=== PATIENT | female | born 1945 | race Caucasian/White ===

== ENCOUNTER → 2016-06-25 | Outpatient (CLI) | payer MEDICARE, OTHER ==
--- NOTE | 2016-06-25 13:04 | MM ---
Reason for exam: follow-up at short interval from prior study. Last mammogram was performed 6 months ago. History: Patient is postmenopausal. Physical Findings: Nurse did not find any significant physical abnormalities on exam. MG 3D Diag Mammo W/Cad RT CC and MLO view(s) were taken of the right breast. Prior study comparison: December 20, 2015, right breast MG 3d work up w/cad RT. November 30, 2015, bilateral MG 3d screening mammo w/cad. There are scattered fibroglandular densities. There is chronic nodularity in the right breast. There is no discrete abnormality. These results were verbally communicated with the patient and result sheet given to the patient on 06/25/16. ASSESSMENT: Benign, BI-RAD 2 RECOMMENDATION: Return to routine screening mammogram schedule for both breasts. Back on schedule for November 2016.
--- NOTE | 2016-06-25 13:06 | USB ---
Reason for exam: follow-up at short interval from prior study. History: Patient is postmenopausal. US Breast RT Right breast ultrasound includes all four quadrants, the retroareolar region and axilla. Finding demonstrates a 0.8 x 1.0 x 0.3cm hypoechoic lesion at 8 o'clock, probable tissue and a 0.8 x 0.6 x 0.4cm oval, vascular node at 9 o'clock, stable. These results were verbally communicated with the patient and result sheet given to the patient on 06/25/16. ASSESSMENT: Benign, BI-RAD 2 RECOMMENDATION: Return to routine screening mammogram schedule for both breasts. Back on schedule for November 2016.
== END | disposition home or self-care (01) ==
LOC: RADMAMWWP 11:00
PROVIDERS: ATTEND Family Medicine
DX: R92.8 Other abnormal and inconclusive findings on diagnostic imaging of breast (principal)
CPT/HCPCS: 76641; G0206; G0279

== ENCOUNTER → 2016-10-10 | Outpatient (CLI) | payer MEDICARE, OTHER ==
--- NOTE | 2016-10-10 15:42 | US ---
EXAMINATION TYPE: US abdomen complete DATE OF EXAM: 10/10/2016 COMPARISON: NONE CLINICAL HISTORY: D69.6 Thrombocytopenia R16.1 Splenomegaly. Thrombocytopenia, Splenomegaly, pt has h /o alberto 40 yrs ago EXAM MEASUREMENTS: Liver Length: 12.9 cm Gallbladder Wall: Surgically absent cm CBD: 0.7 cm Spleen: 10.3 cm Right Kidney: 10.5 x 5.7 x 5.3 cm Left Kidney: 10.5 x 5.5 x 4.4 cm Pancreas: wnl, Tail obscured by overlying bowel gas Liver: Slightly heterogeneous, otherwise appeared wnl Gallbladder: Surgically absent Evidence for sonographic Rosa's sign: No CBD: wnl Spleen: wnl Right Kidney: Cyst upper pole= 1.0 x 0.8 x 1.1 cm Left Kidney: wnl Upper IVC: wnl Abd Aorta: wnl IMPRESSION: 1. Right renal cyst. 2. Limitation on the examination due to bowel gas
== END | disposition home or self-care (01) ==
LOC: RADUSWWP 11:01
PROVIDERS: ATTEND Internal Medicine Hematology & Oncology
DX: N28.1 Cyst of kidney, acquired (principal)
CPT/HCPCS: 76700

== ENCOUNTER → 2017-05-08 | Outpatient (CLI) | payer MEDICARE, OTHER ==
[2017-05-08 15:32] LABS: Blood Urea Nitrogen 12 mg/dL (7-17)
--- NOTE | 2017-05-08 16:14 | CT ---
EXAMINATION TYPE: CT lumbar spine w con DATE OF EXAM: 05/08/2017 COMPARISON: NONE HISTORY: Low back pain radiating down left leg per patient. Lumbar neuritis per order. CT DLP: 742.9 mGycm Automated exposure control for dose reduction was used. CONTRAST: CT scan of the lumbar is performed with IV Contrast, patient injected with 100ml mL of Omnipaque 300. Enhanced CT of the lumbar spine was performed. Bone and soft tissue window settings are submitted as well as coronal and sagittal reconstructions. There are 5 lumbar type vertebra identified. There is levoconvex scoliotic curvature centered at L3-L 4 level. There is slight grade 1 anterolisthesis of L3 on L4. There is and moderate to advanced disc space narrowing with vacuum disc phenomenon and endplate sclerosis at L4-L5 level. There is advanced disc space narrowing with sclerosis and anterior spurring L5-S1 level. Focus of epidural gas L4-L5 le pal is seen likely from disc herniation effacing anterior thecal sac. Posterior spur disc complexes n oted L5-S1 level on sagittal images. Axial images show the T12-L1 and L1-L2 levels to appear within normal limits. Axial images at L2-L3 level show mild right-sided disc space narrowing with mild broad disc bulge but spinal canal is preserved and bilateral neural foramina are patent. Axial images at L3-L4 level show moderate facet degenerative changes bilaterally. There is mild right -sided disc space narrowing with mild to moderate broad disc bulge mildly effacing anterior thecal sa c on axial image 52. There is asymmetric mild right-sided anterior inferior neural foraminal narrowin g. Left-sided neural foramen is patent. Axial images at L4-L5 level show moderate facet degenerative changes bilaterally. There is broad disc bulge. There is effacement of the anterior posterior lateral thecal sac. There is moderate to severe bilateral neural foraminal narrowing at this level with probable encroachment on left L4 nerve sagit rafy image 39. Axial images at L5-S1 level show moderate to advanced facet degenerative changes bilaterally. Spinal canal is preserved. There is mild to moderate bilateral neural foraminal narrowing seen. There is moderate atherosclerotic change of aorta. Cholecystectomy clips are present. There are promi nent but subcentimeter mesenteric lymph nodes with mild haziness of the mesentery noted coronal image 7 and axial image 39 extending to the left of midline. IMPRESSION: Multilevel degenerative changes most prominent in the mid to lower lumbar spine as detailed above. Th ere is encroachment on left L4 nerve at L4-L5 level due to disc herniation confirmed on the CT may be accounting for patient's symptoms. 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 Follow-up advised.
== END | disposition home or self-care (01) ==
LOC: RADCTMAIN 14:48
PROVIDERS: ATTEND Family Medicine
DX: M48.061 Spinal stenosis, lumbar region without neurogenic claudication (principal); M99.73 Connective tissue and disc stenosis of intervertebral foramina of lumbar region; M51.26 Other intervertebral disc displacement, lumbar region; M47.817 Spondylosis without myelopathy or radiculopathy, lumbosacral region; G95.89 Other specified diseases of spinal cord
CPT/HCPCS: 82565; 84520; 72132; 36415; Q9967

== ENCOUNTER → 2017-05-29 | Outpatient (CLI) | payer MEDICARE, OTHER ==
[2017-05-29 15:35] LABS: Blood Urea Nitrogen 13 mg/dL (7-17)
--- NOTE | 2017-05-29 16:46 | CT ---
EXAMINATION TYPE: CT abdomen w con DATE OF EXAM: 05/29/2017 COMPARISON: Correlation lumbar spine 05/08/2017 HISTORY: 71-year-old female abnormal Lspine scan TECHNIQUE: Contiguous axial scanning of the abdomen following administration of 100 ml Omnipaque 300 IV contrast. Delayed images through the kidneys and coronal/sagittal reconstructions performed. CT DLP: 724.8 mGycm Automated exposure control for dose reduction was used. FINDINGS: Heart normal size without pericardial effusion. Lung bases clear without pleural effusion. Liver is borderline enlarged at 17.7 cm craniocaudal. Cholecystectomy clips are present. Portal venou s system is patent. No biliary ductal dilatation. Adrenal glands, left kidney, spleen, and pancreas appear within normal limits. Subcentimeter hypodens ity upper pole right kidney too small for accurate CT characterization, likely cyst. No dilated small bowel, free fluid, or free air. There is moderate stool throughout the colon without pericolonic inflammatory change. There is central mireya mesentery redemonstrated with mild to moderate mesenteric lymphadenopathy scott uring up to 1.4 cm and the left mid abdomen. No retroperitoneal lymphadenopathy. Mild to moderate prostatic calcifications within the abdominal aorta. Bones: Degenerative changes mid to lower lumbar spine. Trace grade 1 anterolisthesis of L3 in relatio n to L2 and L4 vertebral bodies. IMPRESSION: REDEMONSTRATED MIREYA MESENTERY AND ASSOCIATED MILD TO MODERATE MESENTERIC LYMPHADENOPATHY MEASURING U P TO 1.4 CM. CORRELATE FOR ANY SYMPTOMS OF MESENTERIC PANNICULITIS. IF SYMPTOMS ARE PRESENT, CONSIDER BEGINNING TREATMENT. EARLY LYMPHOMA CAN HAVE THIS APPEARANCE, RECOMMEND THREE-MONTH FOLLOW-UP TO ASSESS FOR STABILITY/RESOLUTION
== END | disposition home or self-care (01) ==
LOC: RADCTMAIN 14:50
PROVIDERS: ATTEND Family Medicine
DX: R59.1 Generalized enlarged lymph nodes (principal); R93.5 Abnormal findings on diagnostic imaging of other abdominal regions, including retroperitoneum
CPT/HCPCS: 82565; 84520; 74160; 36415; Q9967

== ENCOUNTER → 2017-08-02 | Outpatient (CLI) | payer MEDICARE, OTHER ==
[2017-08-02 13:45] LABS: Blood Urea Nitrogen 13 mg/dL (7-17)
--- NOTE | 2017-08-02 14:47 | CT ---
EXAMINATION TYPE: CT abdomen w con DATE OF EXAM: 08/02/2017 COMPARISON: 05/29/2017 HISTORY: Pain, prior abn CT CT DLP: 1374.68 mGycm CONTRAST: CT scan of the abdomen and pelvis is performed with Oral Contrast and with IV Contrast, patient injec fatuma with 100 mL of Isovue 300. FINDINGS: LUNG BASES-: No visible nodule. No infiltrate. LIVER/GB: Cholecystectomy clips are noted. No space occupying hepatic lesion. Biliary tree is of n ormal caliber. PANCREAS: No inflammation. No distinct mass. SPLEEN: No splenic enlargement. No lesion seen. ADRENALS: No nodule. No thickening. KIDNEYS/BLADDER: No hydronephrosis. No nephrolithiasis. No distinct renal mass. Urinary bladder g rossly unremarkable. BOWEL: Normal appendix. Normal bowel caliber. No inflammation. GENITAL ORGANS: No gross abnormality. LYMPH NODES: No greater than 1cm abdominal or pelvic lymph nodes are appreciated. AORTA: No significant abnormality. OSSEOUS STRUCTURES: No significant abnormality is seen. OTHER: Stable increased attenuation within the small bowel mesentery with the mildly prominent lymph nodes again seen. Findings may reflect a lymphoma or mesenteric paniculitis. Lymph nodes measure up t o 1.2 cm. IMPRESSION: 1. Stable increased attenuation within the small bowel mesentery with the mildly prominent lymph node s again seen. Findings may reflect a lymphoma or mesenteric paniculitis.
--- NOTE | 2017-08-02 14:57 | CT ---
EXAMINATION TYPE: CT shoulder LT w con DATE OF EXAM: 08/02/2017 COMPARISON: NONE HISTORY: Pain CT DLP: 398.[address] of the left shoulder with reconstruction imaging. TECHNIQUE: Unenhanced CT of the left shoulder was performed with bone and soft tissue window settings submitted in the axial coronal and sagittal planes. At a separate workstation 3-D TR imaging was ob tained. FINDINGS: I do not see evidence for fracture or dislocation. No evidence for subacromial impingement as there is a flat acromium. AC joint arthropathy with mild spurring and a vacuum changes seen. Mi ld spur formation involving the greater humeral tuberosity. Glenohumeral joint space is well-preserv ed. No obvious rotator cuff abnormality seen on CT. MRI is much more sensitive and specific to rota tor cuff pathology. No soft tissue masses appreciated. Visualized portions of the left lung demonst rate right apical scarring. IMPRESSION:1. Degenerative changes as noted.
== END | disposition home or self-care (01) ==
LOC: RADCTMAIN 13:12
PROVIDERS: ATTEND Family Medicine
DX: R10.9 Unspecified abdominal pain (principal); R10.0 Acute abdomen; S46.012D Strain of muscle(s) and tendon(s) of the rotator cuff of left shoulder, subsequent encounter
CPT/HCPCS: 82565; 84520; 74160; 36415; 73201; Q9967

== ENCOUNTER → 2018-05-14 | Outpatient (CLI) | payer MEDICARE, OTHER ==
--- NOTE | 2018-05-15 11:01 | MM ---
Reason for exam: screening (asymptomatic). Last mammogram was performed 1 year and 11 months ago. History: Patient is postmenopausal. Physical Findings: A clinical breast exam by your physician is recommended on an annual basis and results should be correlated with mammographic findings. MG 3D Screening Mammo W/Cad Bilateral CC and MLO view(s) were taken. Prior study comparison: June 25, 2016, right breast MG 3d diag mammo w/cad RT. December 20, 2015, right breast MG 3d work up w/cad RT. There are scattered fibroglandular densities. No significant changes when compared with prior studies. ASSESSMENT: Benign, BI-RAD 2 RECOMMENDATION: Routine screening mammogram of both breasts in 1 year.
== END | disposition home or self-care (01) ==
LOC: RADMAMWWP 15:27
PROVIDERS: ATTEND Family Medicine
DX: Z12.31 Encounter for screening mammogram for malignant neoplasm of breast (principal)
CPT/HCPCS: 77063; 77067

== ENCOUNTER → 2018-12-25 | Outpatient (CLI) | payer MEDICARE, OTHER ==
[2018-12-25 17:41] LABS: African American GFR (CKD) 104.1 (60.0-200.0)
== END | disposition home or self-care (01) ==
LOC: LABWHC1 09:49
PROVIDERS: ATTEND Family Medicine
DX: R10.12 Left upper quadrant pain (principal)
CPT/HCPCS: 36415; 82565; 84520

== ENCOUNTER → 2018-12-27 | Outpatient (CLI) | payer MEDICARE, OTHER ==
--- NOTE | 2018-12-27 13:03 | CT ---
EXAMINATION TYPE: CT abdomen pelvis w con DATE OF EXAM: 12/27/2018 COMPARISON: 08/02/2017 HISTORY: Left upper quadrant pain x [address] DLP: 909.9 mGycm CONTRAST: CT scan of the abdomen and pelvis is performed with Oral Contrast and with IV Contrast, patient injec fatuma with 100 mL of Isovue M300. FINDINGS: LUNG BASES-: No visible nodule. No infiltrate. LIVER/GB: The gallbladder is surgically absent. No space occupying hepatic lesion. Biliary tree is of normal caliber. PANCREAS: No inflammation. No distinct mass. SPLEEN: No splenic enlargement. No lesion seen. ADRENALS: No nodule. No thickening. KIDNEYS/BLADDER: No hydronephrosis. No nephrolithiasis. No distinct renal mass. Urinary bladder g rossly unremarkable. BOWEL: Normal appendix. Normal bowel caliber. No inflammation. GENITAL ORGANS: No gross abnormality. LYMPH NODES: No greater than 1cm abdominal or pelvic lymph nodes are appreciated. AORTA: No significant abnormality. OSSEOUS STRUCTURES: No significant abnormality is seen. OTHER: Stable increased attenuation within the small bowel mesentery with the mildly prominent lymph nodes again seen. Findings may reflect lymphoma or mesenteric panniculitis. IMPRESSION: 1. Stable increased attenuation within the small bowel mesentery with the mildly prominent lymph node s again seen. Findings may reflect lymphoma or mesenteric panniculitis.
== END | disposition home or self-care (01) ==
LOC: RADCTMAIN 10:59
PROVIDERS: ATTEND Family Medicine
DX: K66.8 Other specified disorders of peritoneum (principal); R59.0 Localized enlarged lymph nodes
CPT/HCPCS: 74177; Q9967 ×2

== ENCOUNTER → 2020-12-20 | Outpatient (CLI) | payer MEDICARE, OTHER ==
--- NOTE | 2020-12-22 14:02 | MM ---
Reason for exam: screening (asymptomatic). Last mammogram was performed 2 years and 7 months ago. History: Patient is postmenopausal. Took hormonal contraceptives for 5 years. Physical Findings: A clinical breast exam by your physician is recommended on an annual basis and results should be correlated with mammographic findings. MG 3D Screening Mammo W/Cad Bilateral CC and MLO view(s) were taken. Prior study comparison: May 14, 2018, bilateral MG 3d screening mammo w/cad. June 25, 2016, right breast MG 3d diag mammo w/cad RT. The breast tissue is heterogeneously dense. This may lower the sensitivity of mammography. Finding: There are typically benign coarse calcifications in the upper outer quadrant, middle position of the right breast. No significant changes in finding since May 14, 2018 and June 25, 2016. ASSESSMENT: Benign, BI-RAD 2 RECOMMENDATION: Routine screening mammogram of both breasts in 1 year.
== END | disposition home or self-care (01) ==
LOC: RADMAMWWP 13:39
PROVIDERS: ATTEND Family Medicine
DX: Z12.31 Encounter for screening mammogram for malignant neoplasm of breast (principal); Z78.0 Asymptomatic menopausal state
CPT/HCPCS: 77063; 77067

== ENCOUNTER → 2021-12-27 | Outpatient (CLI) | payer MEDICARE, OTHER ==
--- NOTE | 2021-12-28 09:01 | MM ---
Reason for Exam: Screening (asymptomatic). Last screening mammogram was performed 12 month(s) ago. Patient History: Menarche at age 12. First Full-Term at age 22. Postmenopausal. Patient used Hormonal Contraceptives for 5 years. Risk Values: Candi 5 year model risk: 1.6%. NCI Lifetime model risk: 3.0%. Prior Study Comparison: 06/25/2016 Right Diagnostic Mammogram, [facility]. 05/14/2018 Bilateral Screening Mammogram, [facility]. 12/20/2020 Bilateral Screening Mammogram, [facility]. Tissue Density: The breast tissue is heterogeneously dense. This may lower the sensitivity of mammography. Findings: Analyzed By CAD. There is no suspicious group of microcalcifications or new suspicious mass in either breast. Overall Assessment: Negative, BI-RAD 1 Management: Screening Mammogram of both breasts in 1 year. A clinical breast exam by your physician is recommended on an annual basis and results should be correlated with mammographic findings. [facility] will attempt to contact patient to return for supplemental views and ultrasound if indicated. Electronically signed and approved by: Alex Strange DO
== END | disposition home or self-care (01) ==
LOC: RADMAMWWP 15:49
PROVIDERS: ATTEND Family Medicine
DX: Z12.31 Encounter for screening mammogram for malignant neoplasm of breast (principal); Z78.0 Asymptomatic menopausal state
CPT/HCPCS: 77063; 77067

== ENCOUNTER 2022-02-03 19:44 | Observation (INO) | payer MEDICARE, OTHER ==
[2022-02-03] MEDS ORDERED: SODIUM CHLORIDE 0.9% 1,000 ML IV STA (20:03)
[2022-02-03 20:04] LABS: Glucose,Whole Blood 200 mg/dL (70-110)
[2022-02-03] MEDS ORDERED: ACETAMINOPHEN TAB 500 MG TAB PO STA (20:13)
[2022-02-03 20:16] LABS: HCT 42.7 % (34.0-46.0); HGB 14.4 gm/dL (11.4-16.0); MCH 27.9 pg (25.0-35.0); MCHC 33.8 g/dL (31.0-37.0); MCV 82.6 fL (80.0-100.0); Mean Platelet Volume 12.6; Platelet Count 105 k/uL (150-450); RBC 5.17 m/uL (3.80-5.40); WBC 8.4 k/uL (3.8-10.6)
[2022-02-03] MEDS ORDERED: ONDANSETRON 4 MG/2 ML VIAL IVP STA (20:25)
--- NOTE | 2022-02-03 20:37 | XR ---
EXAMINATION TYPE: XR chest 2V DATE OF EXAM: 02/03/2022 COMPARISON: 12/03/2018 HISTORY: Weakness TECHNIQUE: 2 views FINDINGS: There is some blunting of the costophrenic angles and more on the left side. Heart size is normal. There are no hilar masses. The bony thorax is intact. No heart failure seen. IMPRESSION: Small bilateral pleural effusions. Normal heart. Pleural fluid appears new compared to e old exam.
[2022-02-03 20:38] LABS: INR 1.2 (<1.2); Partial Thromboplastin Time 25.7 sec (22.0-30.0); Prothrombin Time 12.4 sec (9.0-12.0)
--- NOTE | 2022-02-03 20:46 | ED ---
General Adult HPI - General Chief complaint: Weakness Stated complaint: Weakness Time Seen by Provider: 02/03/22 19:47 Source: patient, EMS, RN notes reviewed, old records reviewed Mode of arrival: EMS Limitations: no limitations - History of Present Illness Initial comments: 76-year-old female presenting with weakness. Patient received both influenza and coronavirus vaccines today. She had gone to bed and woke up with chills and generalized weakness, difficulty standing. Denies focal weakness. Denies any pain complaints. She has had nausea and vomiting as well. - Related Data Home Medications Medication Instructions Recorded Confirmed Ciclopirox Olamine [Ciclopirox 1 applic TOPICAL HS 07/02/18 07/02/18 0.77% Topical Susp.] Levothyroxine Sodium [Synthroid] 100 mcg PO DAILY 07/02/18 07/02/18 Previous Rx's Medication Instructions Recorded Doxycycline Hyclate 100 mg PO Q12H #14 tab 07/04/18 Allergies Allergy/AdvReac Type Severity Reaction Status Date / Time No Known Allergies Allergy Verified 07/01/18 22:51 Review of Systems ROS Statement: Those systems with pertinent positive or pertinent negative responses have been documented in the HPI. ROS Other: All systems not noted in ROS Statement are negative. Past Medical History Past Medical History: Diabetes Mellitus, Hyperlipidemia History of Any Multi-Drug Resistant Organisms: None Reported Past Surgical History: No Surgical Hx Reported Additional Past Surgical History / Comment(s): cholecystectomy, cataract surgery Past Anesthesia/Blood Transfusion Reactions: No Reported Reaction Past Psychological History: No Psychological Hx Reported Past Alcohol Use History: Occasional Past Drug Use History: None Reported General Exam Limitations: no limitations General appearance: alert, in no apparent distress Head exam: Present: atraumatic, normocephalic Eye exam: Present: normal appearance, PERRL ENT exam: Present: mucous membranes dry Neck exam: Present: normal inspection. Absent: tenderness, meningismus Respiratory exam: Present: normal lung sounds bilaterally. Absent: respiratory distress, wheezes Cardiovascular Exam: Present: normal rhythm, tachycardia GI/Abdominal exam: Present: soft. Absent: distended, tenderness, guarding Extremities exam: Present: normal inspection, normal capillary refill. Absent: pedal edema Neurological exam: Present: alert, oriented X3, CN II-XII intact. Absent: motor sensory deficit Psychiatric exam: Present: normal affect, normal mood Skin exam: Present: warm, dry, intact. Absent: cyanosis, diaphoretic Course Vital Signs 02/03/22 02/03/22 02/03/22 19:47 19:51 21:38 Temperature 98.6 F Pulse Rate 112 H 107 H Pulse Rate [ 114 H [employer] ] Respiratory 22 Rate Blood Pressure 134/54 O2 Sat by Pulse 100 Oximetry EKG Findings - EKG Comments: EKG Findings:: EKG: Sinus tachycardia rate of 109, poor baseline limiting the assessment I do not see any ST segment elevation, LA interval 135, QRS duration 82, QTC 345 Medical Decision Making - Medical Decision Making 76-year-old female with weakness, nausea vomiting, after getting her flu and coronavirus vaccines today. She has no pain or tenderness. She is mildly tachycardic with otherwise stable vitals. She does report weakness but there is no focal weakness or specific lower extremity weakness. This is diffuse. She has a normal CBC. She has some mild left foot abnormalities including hypokalemia and hypomagnesemia. She's given IV fluids and left leg replacement. She does have a urinalysis ordered but results are pending. She will be admitted for IV hydration and symptom control. - Lab Data Result diagrams: 02/03/22 20:01 02/03/22 20:38 Lab Results 02/03/22 02/03/22 02/03/22 Range/Units 20:01 20:01 20:01 WBC 8.4 (3.8-10.6) k/uL RBC 5.17 (3.80-5.40) m/uL Hgb 14.4 (11.4-16.0) gm/dL Hct 42.7 (34.0-46.0) % MCV 82.6 (80.0-100.0) fL MCH 27.9 (25.0-35.0) pg MCHC 33.8 (31.0-37.0) g/dL RDW 14.0 (11.5-15.5) % Plt Count 105 L (150-450) k/uL MPV 12.6 PT 12.4 H (9.0-12.0) sec INR 1.2 H (<1.2) APTT 25.7 (22.0-30.0) sec Sodium (137-145) mmol/L Potassium (3.5-5.1) mmol/L Chloride (98-107) mmol/L Carbon Dioxide (22-30) mmol/L Anion Gap mmol/L BUN (7-17) mg/dL Creatinine (0.52-1.04) mg/dL Est GFR (CKD-EPI)AfAm (>60 ml/min/1.73 sqM) Est GFR (CKD-EPI)NonAf (>60 ml/min/1.73 sqM) Glucose (74-99) mg/dL POC Glucose (mg/dL) (70-110) mg/dL POC Glu Laboratory Administrative Director ID Plasma Lactic Acid Yoni 1.6 (0.7-2.0) mmol/L Calcium (8.4-10.2) mg/dL Magnesium (1.6-2.3) mg/dL Total Bilirubin (0.2-1.3) mg/dL AST (14-36) U/L ALT (4-34) U/L Alkaline Phosphatase (38-126) U/L Total Protein (6.3-8.2) g/dL Albumin (3.5-5.0) g/dL 02/03/22 02/03/22 Range/Units 20:03 20:38 WBC (3.8-10.6) k/uL RBC (3.80-5.40) m/uL Hgb (11.4-16.0) gm/dL Hct (34.0-46.0) % MCV (80.0-100.0) fL MCH (25.0-35.0) pg MCHC (31.0-37.0) g/dL RDW (11.5-15.5) % Plt Count (150-450) k/uL MPV PT (9.0-12.0) sec INR (<1.2) APTT (22.0-30.0) sec Sodium 135 L (137-145) mmol/L Potassium 3.2 L (3.5-5.1) mmol/L Chloride 99 (98-107) mmol/L Carbon Dioxide 22 (22-30) mmol/L Anion Gap 14 mmol/L BUN 8 (7-17) mg/dL Creatinine 0.38 L (0.52-1.04) mg/dL Est GFR (CKD-EPI)AfAm >90 (>60 ml/min/1.73 sqM) Est GFR (CKD-EPI)NonAf >90 (>60 ml/min/1.73 sqM) Glucose 236 H (74-99) mg/dL POC Glucose (mg/dL) 200 H (70-110) mg/dL POC Glu Laboratory Administrative Director ID Rasheeda Miguel Plasma Lactic Acid Yoni (0.7-2.0) mmol/L Calcium 8.2 L (8.4-10.2) mg/dL Magnesium 1.5 L (1.6-2.3) mg/dL Total Bilirubin 1.0 (0.2-1.3) mg/dL AST 36 (14-36) U/L ALT 19 (4-34) U/L Alkaline Phosphatase 85 (38-126) U/L Total Protein 5.9 L (6.3-8.2) g/dL Albumin 3.7 (3.5-5.0) g/dL Disposition Clinical Impression: Generalized weakness, Dehydration, Hypokalemia Disposition: ADMITTED IP TO THIS HOSP Condition: Stable Is patient prescribed a controlled substance at d/c from ED?: No Referrals: Steve Barron MD [Primary Care Provider] - 1-2 days Time of Disposition: 21:53
[2022-02-03 21:06] LABS: ALT 19 U/L (4-34); AST 36 U/L (14-36); African American GFR (CKD) >90 (>60 ml/min/1.73 sqM); Albumin 3.7 g/dL (3.5-5.0); Alkaline Phosphatase 85 U/L (38-126); Anion Gap 14 mmol/L; Blood Urea Nitrogen 8 mg/dL (7-17); Calcium 8.2 mg/dL (8.4-10.2); Carbon Dioxide 22 mmol/L (22-30); Chloride 99 mmol/L (98-107); Glucose 236 mg/dL (74-99); Magnesium 1.5 mg/dL (1.6-2.3); Non-African American GFR(CKD) >90 (>60 ml/min/1.73 sqM); Potassium 3.2 mmol/L (3.5-5.1); Sodium 135 mmol/L (137-145); Total Protein 5.9 g/dL (6.3-8.2)
[2022-02-03] MEDS ORDERED: POTASSIUM CHLORIDE ER 20 MEQ TAB.ER PO STA (21:08)
[2022-02-03] MEDS: MAGNESIUM SULFATE-D5W PMX 1 GM in DEXTROSE/WATER 1 100ML.BAG IVPB SCH ×2 (21:31→23:31)
[2022-02-03] MEDS ORDERED: NALOXONE 0.4 MG/ML 1 ML VIAL IV PRN (21:51)
[2022-02-03] MEDS ORDERED: ONDANSETRON 4 MG/2 ML VIAL IVP PRN (21:51)
[2022-02-03] MEDS ORDERED: ACETAMINOPHEN TAB 325 MG TAB PO PRN (21:51)
[2022-02-03 22:37] LABS: Band Neutrophils % 3 %; Lymphocytes # (M) 1.26 k/uL (1.0-4.8); Monocytes # (M) 1.76 k/uL (0-1.0); Neutrophils % (M) 61 %; Nucleated Red Blood Cells 0 /100 WBC (0-0); Total Cells Counted 100
[2022-02-03 22:39] LABS: Anisocytosis (M) Present; Large Platelets Present
[2022-02-03 22:45] LABS: Poikilocytosis (M) Present
[2022-02-03 23:03] LABS: Glucose,Whole Blood 223 mg/dL (70-110)
[2022-02-03 23:20] LABS: Appearance,Urine Cloudy (Clear); Bacteria,Urine Rare /hpf; Bilirubin,Urine Negative (Negative); Blood,Urine Negative (Negative); Color,Urine Yellow; Glucose,Urine (UA) Trace (Negative); Hyaline Casts,Urine 1 /lpf (0-2); Ketones,Urine 2+ (Negative); Leukocyte Esterase,Urine Trace (Negative); Mucus,Urine Rare /hpf; Nitrite,Urine Negative (Negative); Protein,Urine 1+ (Negative); RBC,Urine 2 /hpf (0-5); Specific Gravity,Urine 1.015 (1.001-1.035); Squamous Epithelial Cell,Urine 2 /hpf (0-4); Urobilinogen,Urine <2.0 mg/dL (<2.0); WBC,Urine 1 /hpf (0-5)
[2022-02-03] MEDS: SODIUM CHLORIDE 0.9% 1,000 ML IV SCH (23:31)
[2022-02-04 08:42] LABS: Glucose,Whole Blood 205 mg/dL (70-110)
[2022-02-04 11:49] LABS: Basophils # (M) 0 X 10*3/uL (0.00-0.10); Eosinophils # (M) 0 X 10*3/uL (0.04-0.35); HCT 35.9 % (37.2-46.3); HGB 12.1 g/dL (12.0-15.0); Lymphocytes # (M) 0.95 X 10*3/uL (0.90-5.00); MCH 27.5 pg (27.0-32.0); MCHC 33.7 g/dL (32.0-37.0); MCV 81.6 fL (80.0-97.0); Monocytes # (M) 1.35 X 10*3/uL (0.20-1.00); NRBC Per 100 WBC 0 /100 WBCS (0.0-0.0); Neutrophils # (M) 4.47 X 10*3/uL (2.00-8.90); Neutrophils % (M) 66 %; Platelet Count 94 X 10*3/uL (140-440); RDW 15.2 % (11.5-14.5); WBC 6.77 X 10*3/uL (4.50-10.00)
[2022-02-04 12:27] LABS: African American GFR (CKD) 107.9 (60.0-200.0); Anion Gap 9.2 mmol/L (10.00-18.00); BUN/Creat Ratio 11.41 Ratio (12.00-20.00); Blood Urea Nitrogen 5.8 mg/dL (9.0-27.0); Calcium 7.7 mg/dL (8.7-10.3); Carbon Dioxide 25.2 mmol/L (20.0-27.5); Magnesium 1.9 mg/dL (1.5-2.4); Non-African American GFR(CKD) 93.1 (60.0-200.0); Potassium 3.4 mmol/L (3.5-5.5)
[2022-02-04] MEDS: SODIUM CHLORIDE 0.9% 1,000 ML IV SCH (13:19)
--- NOTE | 2022-02-04 14:17 | CT ---
EXAMINATION TYPE: CT chest wo con DATE OF EXAM: 02/04/2022 COMPARISON: CT abdomen 12/27/2018 HISTORY: pleural effusion CT DLP: 196.3 mGycm Automated exposure control for dose reduction was used. Images obtained from the thoracic inlet to the diaphragm without contrast. There is bilateral pleural effusions. Heart size is normal. There is small pericardial effusion. There is no mediastinal adenopathy. There are no hilar masses. Thoracic aorta is atheromatous. There is a slight thoracic dextroscoliosis. Normal thoracic compression fracture. Sternum is intact. There is abdominal ascites. There are clips from cholecystectomy. IMPRESSION: Bilateral pleural effusions and pericardial effusion appears new compared to CT scan of 12/27/2018. Ab dominal ascites is new compared to old exam.
[2022-02-04 17:17] LABS: Glucose,Whole Blood 224 mg/dL (70-110)
[2022-02-04] MEDS ORDERED: DEXTROSE 50% SYRINGE 50 ML IVP PRN ×2 (17:30)
[2022-02-04] MEDS: INSULIN ASPART (NovoLOG) 100 UNIT/ML VIAL SQ SCH ×2 (17:54→21:44)
--- NOTE | 2022-02-04 18:57 | US ---
EXAMINATION TYPE: US abdomen limited DATE OF EXAM: 02/04/2022 COMPARISON: NONE CLINICAL HISTORY: abdominal ascites. ascites visualized on recent chest CT all 4 abdominal quadrants scanned, no significant fluid visualized IMPRESSION: No evidence of abdominal ascites.
[2022-02-04] MEDS ORDERED: KETOCONAZOLE 2% SHAMPOO 1 APPLIC/ML TOPICAL SCH (21:00)
[2022-02-04] MEDS: metFORMIN 500 MG TAB PO SCH (21:25)
[2022-02-04 21:30] LABS: Glucose,Whole Blood 195 mg/dL (70-110)
[2022-02-05] MEDS: SODIUM CHLORIDE 0.9% 1,000 ML IV SCH ×2 (02:40→16:24)
--- NOTE | 2022-02-05 04:45 | HP ---
HISTORY AND PHYSICAL HISTORY OF PRESENT ILLNESS: A 76-year-old white female came to hospital with Dr. Mccain. She became weak, dizzy standing. She was admitted, given fluids overnight. She is much better today. No nausea or vomiting. Ultrasound and CAT scans were reviewed. HOME MEDICATIONS: 1. Synthroid 100 mcg daily. 2. Ciprodex. PAST MEDICAL HISTORY: Diabetes mellitus, dyslipidemia, cholecystectomy, cataract surgery. REVIEW OF SYSTEMS: A 14-point review of systems otherwise negative except for H and P. EKG, sinus tachycardia. PHYSICAL EXAMINATION: PSYCH: Alert and oriented x3, fair mood and affect. NEUROLOGIC: Cranial nerves intact. CARDIOVASCULAR: S1, S2. LUNGS: Clear. GI: Soft. HEMATOLOGY: Negative for Homans. ASSESSMENT: 1. Weakness, nausea, and vomiting. 2. Dehydration, normal CBC. 3. Mild left foot abnormalities. 4. Hypokalemia, hypomagnesemia, replaced. Urinalysis negative. IV hydration. Possibly go home and followup with diabetes outpatient. At this point, she wants to go home. Wait for ultrasound, come back, then discharged home tonight. MMODL / IJN: [id number] /
[2022-02-05 06:29] LABS: Glucose,Whole Blood 151 mg/dL (70-110)
[2022-02-05] MEDS ORDERED: LEVOTHYROXINE 100 MCG TAB PO SCH (06:30)
[2022-02-05] MEDS: INSULIN ASPART (NovoLOG) 100 UNIT/ML VIAL SQ SCH ×3 (06:35→17:26)
[2022-02-05] MEDS: metFORMIN 500 MG TAB PO SCH ×2 (06:35→17:28)
[2022-02-05 07:41] LABS: Glucose,Whole Blood 165 mg/dL (70-110)
[2022-02-05 08:32] VITALS: RESP 18
--- NOTE | 2022-02-05 09:43 | P.CRDCN ---
History of Present Illness History of present illness: This is a 76 year old female with a past medical history of type 2 diabetes and thrombocytopenia. 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 We have been asked to see in consultation for pericardial effusion. Patient had her covid-19 booster vaccine and her influenza vaccine saturday. She had symptoms of generalized weakness that began a few hours after, she states she felt weak and felt as if she could not walk or do anything. She came to the ER for further evaluation. She denies any other symptoms. She denies any chest pain, shortness of breath, lightheadeness, dizziness, syncope, pre-syncope or palpitations. Denies any fever, cough or chills. She denies any history of CAD, [place], Stroke, heart failure, or arrhythmia. She state she feels back to her her baseline, no complaints. DIAGNOSTICS * EKG reveals sinus tachycardia, heart rate 109, artifact noted. Nonspecific STT wave abnormalities. * Telemetry tracings: on telemetry to review. * Chest xray small bilateral pleural effusions reported. * CT of the chest reported small pericardial effusion, bilateral pleural effusions. Reported abdominal ascites, abdominal ultrasound reported no ascites. * Laboratory reviewed, WBC 6.7, hemoglobin 12.1, platelets 94, sodium 141, potassium 3.4, BUN 5.8, serum current 0.5, d-dimer 1.3, magnesium 1.9, proBNP 681 * Current home cardiac medications include metformin REVIEW OF SYSTEMS At the time of my exam: CONSTITUTIONAL: Denies fever or chills. CARDIOVASCULAR: Denies chest pain, shortness of breath, orthopnea, PND or palpitations. RESPIRATORY: Denies cough. GASTROINTESTINAL: Denies abdominal pain, diarrhea, constipation, nausea or vomiting. MUSCULOSKELETAL: Denies myalgias. NEUROLOGIC: Denies numbness, tingling, headacbe or weakness. ENDOCRINE: Denies fatigue, weight change, polydipsia or polyurina. GENITOURINARY: Denies burning, hematuria or urgency with micturation. HEMATOLOGIC: Denies history of anemia or bleeding. PHYSICAL EXAMINATION Blood pressure 119/68, heart 79, afebrile, saturation 96% on room air CONSTITUTIONAL: No apparent distress. HEENT: Head is normocephalic. Pupils are equal, round. Sclerae anicteric. Mucous membranes of the mouth are moist. No JVD. No carotid bruit. CHEST EXAMINATION: Lungs are clear to auscultation. No chest wall tenderness is noted on palpation or with deep breathing. HEART EXAMINATION: Regular rate and rhythm. S1, S2 heard. No murmurs, gallops or rub. ABDOMEN: Soft, nontender. Positive bowel sounds. EXTREMITIES: 2+ peripheral pulses, no lower extremity edema and no calf tenderness. NEUROLOGIC EXAMINATION: Patient is awake, alert and oriented x3. ASSESSMENT Generalized weakness after covid-19 booster vaccine and influenza vaccine, resolved Hypokalemia Hypomagnesemia Thrombocytopenia Small pericardial effusion reported on CT chest PLAN Obtain 2D echocardiogram and doppler study to assess cardiac structure/function and pericardial effusion. If no acute findings noted on echocardiogram, no further inpatient workup from a cardiology perspective. Nurse practitioner note has been reviewed by physician. Signing provider agrees with the documented findings, assessment, and plan of care. Past Medical History Past Medical History: Diabetes Mellitus, Hyperlipidemia Additional Past Medical History / Comment(s): left leg swells at end of day every day for about a year History of Any Multi-Drug Resistant Organisms: None Reported Past Surgical History: No Surgical Hx Reported Additional Past Surgical History / Comment(s): cholecystectomy, cataract surgery Past Anesthesia/Blood Transfusion Reactions: No Reported Reaction Past Psychological History: No Psychological Hx Reported Smoking Status: Former smoker Past Alcohol Use History: Occasional Past Drug Use History: None Reported - Past Family History Father Family Medical History: Cancer, Prostate Disorder Additional Family Medical History / Comment(s): prostate CA Mother Additional Family Medical History / Comment(s): parkinsons Medications and Allergies Home Medications Medication Instructions Recorded Confirmed Type Ciclopirox Olamine [Ciclopirox 1 applic TOPICAL HS 07/02/18 07/02/18 History 0.77% Topical Susp.] Levothyroxine Sodium [Synthroid] 100 mcg PO DAILY 07/02/18 07/02/18 History metFORMIN HCL [Glucophage] 500 mg PO BID-W/MEALS 30 Days #60 02/04/22 Rx tab Allergies Allergy/AdvReac Type Severity Reaction Status Date / Time No Known Allergies Allergy Verified 07/01/18 22:51 Physical Exam Vitals: Vital Signs Temp Pulse Resp BP BP Pulse Ox 02/05/22 03:00 98.0 F 79 16 126/68 96 02/04/22 20:55 98.2 F 85 16 117/68 94 L 02/04/22 14:24 98 F 80 18 102/63 98 02/04/22 14:00 80 16 02/04/22 08:00 80 16 Intake and Output 02/04/22 02/05/22 02/05/22 22:59 06:59 14:59 Intake Total 120 Balance 120 Intake: Oral 120 Other: Voiding Method Toilet # Voids 2 3 Results 02/04/22 07:46 02/04/22 07:46 CBC 02/04/22 Range/Units 07:46 WBC 6.77 (4.50-10.00) X 10*3/uL RBC 4.40 (4.10-5.20) X 10*6/uL Hgb 12.1 (12.0-15.0) g/dL Hct 35.9 L (37.2-46.3) % Plt Count 94 L (140-440) X 10*3/uL Comprehensive Metabolic Panel 02/04/22 Range/Units 07:46 Sodium 141 (135-145) mmol/L Potassium 3.4 L (3.5-5.5) mmol/L Chloride 107 (96-109) mmol/L Carbon Dioxide 25.2 (20.0-27.5) mmol/L BUN 5.8 L (9.0-27.0) mg/dL Creatinine 0.5 L (0.6-1.5) mg/dL Glucose 210 H (70-110) mg/dL Calcium 7.7 L (8.7-10.3) mg/dL Current Medications Generic Name Dose Route Start Last Admin Trade Name Freq PRN Reason Stop Dose Admin Acetaminophen 650 mg 02/03/22 21:51 02/03/22 23:30 Acetaminophen Tab 325 Mg Tab PO 650 mg Q6HR PRN Administration Mild Pain or Fever > 100.5 Dextrose/Water 25 ml 02/04/22 17:30 Dextrose 50% Syringe 50 Ml IVP PER PROTOCOL PRN Hypoglycemia Protocol Dextrose/Water 50 ml 02/04/22 17:30 Dextrose 50% Syringe 50 Ml IVP PER PROTOCOL PRN Hypoglycemia Protocol Sodium Chloride 1,000 mls @ 75 mls/hr 02/03/22 22:00 02/05/22 02:40 Saline 0.9% IV 75 mls/hr .[id number] ALLISON Administration Insulin Aspart 0 unit 02/04/22 17:30 02/05/22 06:35 Insulin Aspart (Novolog) 100 Unit/Ml Vial SQ 1 unit ACHS ALLISON Administration Protocol Ketoconazole 1 applic 02/04/22 21:00 02/04/22 21:44 Ketoconazole 2% Shampoo 1 Applic/Ml TOPICAL Not Given HS ALLISON Levothyroxine Sodium 100 mcg 02/05/22 06:30 02/05/22 06:35 Levothyroxine 100 Mcg Tab PO 100 mcg DAILY@0630 ALLISON Administration Metformin HCl 500 mg 02/04/22 19:15 02/05/22 06:35 Metformin 500 Mg Tab PO 500 mg BID-W/MEALS ALLISON Administration Naloxone HCl 0.2 mg 02/03/22 21:51 Naloxone 0.4 Mg/Ml 1 Ml Vial IV Q2M PRN Opioid Reversal Ondansetron HCl 4 mg 02/03/22 21:51 Ondansetron 4 Mg/2 Ml Vial IVP Q8HR PRN Nausea And Vomiting Intake and Output 02/04/22 02/05/22 02/05/22 22:59 06:59 14:59 Intake Total 120 Balance 120 Intake: Oral 120 Other: Voiding Method Toilet # Voids 2 3 02/04/22 07:46 02/04/22 07:46
[2022-02-05 12:15] LABS: Glucose,Whole Blood 200 mg/dL (70-110)
[2022-02-05 16:58] VITALS: BP 126/72; PULSE 76; TEMP 98.1
[2022-02-05 17:16] LABS: Glucose,Whole Blood 143 mg/dL (70-110)
--- NOTE | 2022-02-05 17:33 | CA ---
Transthoracic Echo Report Name: Ping Villalpando Age: 76 Gender: F : 1945 Exam Date: 02/05/2022 09:35 Exam Location: [facility] Ht (in): 65 Wt (lb): 125 Ordering Physician: Steve Barron MD Attending/Referring Phys: Commercial Portfolio Manager Jena Shaw RDCS Procedure CPT: Indications: pericardial effusion Cardiac Hx: Technical Quality: Fair Contrast 1: Total Dose (mL): Contrast 2: Total Dose (mL): MEASUREMENTS (Male / Female) Normal Values 2D ECHO LV Diastolic Diameter PLAX 4.0 cm 4.2 - 5.9 / 3.9 - 5.3 cm LV Systolic Diameter PLAX 2.5 cm IVS Diastolic Thickness 1.2 cm 0.6 - 1.0 / 0.6 - 0.9 cm LVPW Diastolic Thickness 1.2 cm 0.6 - 1.0 / 0.6 - 0.9 cm LV Relative Wall Thickness 0.6 RV Internal Dim ED PLAX 2.5 cm LA Volume 44.1 cm??? 18 - 58 / 22 - 52 cm??? M-MODE Aortic Root Diameter MM 3.1 cm LA Systolic Diameter MM 2.9 cm LA Ao Ratio MM 0.9 AV Cusp Separation MM 1.6 cm DOPPLER AV Peak Velocity 160.6 cm/s AV Peak Gradient 10.3 mmHg AV Mean Velocity 106.2 cm/s AV Mean Gradient 5.4 mmHg AV Velocity Time Integral 31.5 cm LVOT Peak Velocity 123.7 cm/s LVOT Peak Gradient 6.1 mmHg MV Peak Velocity 116.6 cm/s MV Peak Gradient 5.4 mmHg MV Mean Velocity 89.8 cm/s MV Mean Gradient 3.4 mmHg MV Velocity Time Integral 25.6 cm MV Area PHT 3.5 cm??? Mitral E Point Velocity 112.8 cm/s Mitral A Point Velocity 98.1 cm/s Mitral E to A Ratio 1.2 MV Deceleration Time 217.0 ms TR Peak Velocity 322.4 cm/s TR Peak Gradient 41.6 mmHg Right Ventricular Systolic Press 45.0 mmHg FINDINGS Left Ventricle Mildly increased left ventricular wall thickness. Normal left ventricular systolic function with no obvious regional wall motion abnormalities. Left ventricular ejection fraction is estimated at 55-60 %. Right Ventricle Normal right ventricular size and function. Right Atrium Normal right atrial size. Left Atrium Normal left atrial size. Mitral Valve Structurally normal mitral valve. Mild mitral annular calcification. No mitral stenosis, regurgitation or prolapse. Aortic Valve Trileaflet aortic valve. Aortic valve sclerosis. No aortic valve stenosis or regurgitation. Tricuspid Valve Structurally normal tricuspid valve. Mild tricuspid regurgitation. Pulmonic Valve Trace pulmonic regurgitation. Pericardium Small pericardial effusion. Pleural effusion. Aorta Normal size aortic root and proximal ascending aorta. CONCLUSIONS Normal LV systolic function Small pericardial effusion Incidental pleural effusion Previewed by: Dr. Boogie Modi MD (Electronically Signed) Final Date: 05 February 2022 17:32
--- NOTE | 2022-02-05 17:56 | P.DS ---
Providers Date of admission: 02/03/22 21:51 Expected date of discharge: 02/05/22 Attending physician: Steve Barron Consults: 02/04/22 17:27 Consult Physician Routine Consulting Provider: Gonzalez Esteves Consult Reason/Comments: pericardial effusion Do you want consulting provider notified?: Yes Primary care physician: Steve Barron [facility] Course: Presenting complaint: Multiple symptoms Hospital course: I'm rounding for Dr. Steve Barron. 02/05/2022: 2 days ago in the afternoon patient received her COVID 19 and also flu vaccine. That evening patient developed multiple symptoms. Had a slight cough. Tired. Rundown. Weak. Also some chills. Some nausea vomiting. Today feeling much better. Oral intake better. Up to the bathroom. No fever no chills. 2-D echocardiogram was done by currently. Very small pericardial effusion. Patient has been keen to go home.. [place] to have exacerbated respond to the vaccines. Questions answered. Discussed. Patient has a slight tickle in the throat. Slight cough. Told to do warm water with salt gargle. Patient home medications were not correctly listed, had the nurse fix the same. As patient clinically feeling much better she'll be discharged. To follow-up with the family doctor in in the weak. Discussion and discharge planning more than 35 minutes Vitals: 98.1, 76, 18, 120/72, 96% room air Gen. appearance: Sitting at the edge of the bed, awake, comfortable Respiratory: Effort normal, lungs fair entry Cardiovascular first seconds are normal, no edema Psychiatry: AO 3, mood and affect normal INVESTIGATIONS, reviewed in the clinical context: White count 6.7 hemoglobin 12.1 platelets 94 creatinine 0.5 proBNP 681 HbA1c 10.6 Abdominal ultrasound: Unremarkable CT chest: Some pleural effusion and pericardial effusion. Slight abdominal ascites. EKG tracing sinus tachycardia. 2-D echocardiogram: EF 55-60%. No regional wall motion abnormality. Small pericardial effusion. Assessment and plan: -Possible exacerbated clinical response secondary to COVID-19 and flu vaccine -Small pericardial effusion. Seen by currently. Not been used clinical significance at this point. -Hyperlipidemia, Zocor -Thrombocytopenia. Follow-up with PCP. Repeat CBC outpatient. -Diabetes mellitus type 2 on oral hypoglycemic. Uncontrolled. Patient to follow-up with her PCP. Discussed. Disposition: Home Plan - Discharge Summary Discharge Rx Participant: Yes New Discharge Prescriptions: New metFORMIN HCL [Glucophage] 500 mg PO BID-W/MEALS 30 Days #60 tab Continue Levothyroxine Sodium [Synthroid] 100 mcg PO DAILY sitaGLIPtin [Januvia] 100 mg PO DAILY Simvastatin [Zocor] 40 mg PO HS Repaglinide [Prandin] 1 mg PO AC-TID Discontinued Doxycycline Hyclate 100 mg PO Q12H #14 tab Discharge Medication List Levothyroxine Sodium [Synthroid] 100 mcg PO DAILY 07/02/18 [History] metFORMIN HCL [Glucophage] 500 mg PO BID-W/MEALS 30 Days #60 tab 02/04/22 [Rx] Repaglinide [Prandin] 1 mg PO AC-TID 02/05/22 [History] Simvastatin [Zocor] 40 mg PO HS 02/05/22 [History] sitaGLIPtin [Januvia] 100 mg PO DAILY 02/05/22 [History] Follow up Appointment(s)/Referral(s): Steve Barron MD [Primary Care Provider] - 1-2 days Boogie Modi MD [STAFF PHYSICIAN] - 2 Weeks (please make follow up appointment. ) Patient Instructions/Handouts: Metformin (By mouth), Pericardial Effusion (DC), Weakness (DC) Activity/Diet/Wound Care/Special Instructions: resume home diabetic meds not listed in home meds
== END 2022-02-05 18:25 | disposition home or self-care (01) ==
LOC: EC 19:44 → 6NMEDSUR 21:51
PROVIDERS: ADMIT Family Medicine; ATTEND Family Medicine
DX: I31.39 Other pericardial effusion (noninflammatory) (principal); E86.0 Dehydration; E87.6 Hypokalemia; R18.8 Other ascites; E83.42 Hypomagnesemia; E11.9 Type 2 diabetes mellitus without complications; E78.5 Hyperlipidemia, unspecified; J90 Pleural effusion, not elsewhere classified; I08.3 Combined rheumatic disorders of mitral, aortic and tricuspid valves; I37.1 Nonrheumatic pulmonary valve insufficiency; D69.6 Thrombocytopenia, unspecified; Z90.49 Acquired absence of other specified parts of digestive tract; Z79.890 Hormone replacement therapy; Z98.49 Cataract extraction status, unspecified eye; Z87.891 Personal history of nicotine dependence; Z80.42 Family history of malignant neoplasm of prostate; Z82.0 Family history of epilepsy and other diseases of the nervous system; Z79.84 Long term (current) use of oral hypoglycemic drugs
CPT/HCPCS: 96361 ×2; 96366 ×2; 96365; 96375; 99285; 36415; 93005; 93306; 85379; 83880; 80053; 80048; 82140; 83605; 83690; 83735 ×2; 85025 ×2; 85610; 85730; 81001; 83036; 71046; 76705; 71250; G0378 ×3; J2405; J3475

== ENCOUNTER 2022-07-03 16:46 | Inpatient (IN) | payer MEDICARE, OTHER ==
[2022-07-03 17:52] LABS: ALT 16 U/L (4-34); African American GFR (CKD) >90 (>60 ml/min/1.73 sqM); Anion Gap 4 mmol/L; Blood Urea Nitrogen 15 mg/dL (7-17); Carbon Dioxide 31 mmol/L (22-30); Chloride 101 mmol/L (98-107); Glucose 165 mg/dL (74-99); Non-African American GFR(CKD) >90 (>60 ml/min/1.73 sqM); Sodium 136 mmol/L (137-145); Total Bilirubin 0.9 mg/dL (0.2-1.3)
[2022-07-03 17:55] LABS: AST 24 U/L (14-36); Albumin 3.6 g/dL (3.5-5.0); Alkaline Phosphatase 54 U/L (38-126); Potassium 4.8 mmol/L (3.5-5.1); Total Protein 6.4 g/dL (6.3-8.2)
[2022-07-03 18:00] LABS: Appearance,Urine Clear (Clear); Bilirubin,Urine Negative (Negative); Blood,Urine Negative (Negative); Color,Urine Light Yellow; Glucose,Urine (UA) Negative (Negative); Ketones,Urine Negative (Negative); Leukocyte Esterase,Urine Negative (Negative); Nitrite,Urine Negative (Negative); PH, Urine 7.5 (5.0-8.0); Protein,Urine Trace (Negative); Specific Gravity,Urine 1.011 (1.001-1.035); Urobilinogen,Urine <2.0 mg/dL (<2.0)
[2022-07-03 18:28] LABS: HCT 38.5 % (34.0-46.0); HGB 12.8 gm/dL (11.4-16.0); MCH 28.3 pg (25.0-35.0); MCHC 33.4 g/dL (31.0-37.0); MCV 84.8 fL (80.0-100.0); Mean Platelet Volume 12.5; Platelet Count 114 k/uL (150-450); RBC 4.54 m/uL (3.80-5.40); RDW 14.6 % (11.5-15.5); WBC 11.7 k/uL (3.8-10.6)
--- NOTE | 2022-07-03 18:28 | ED ---
SOB HPI - General Chief Complaint: Shortness of Breath Stated Complaint: Recheck Time Seen by Provider: 07/03/22 17:07 Source: patient Mode of arrival: wheelchair Limitations: no limitations - History of Present Illness Initial Comments: Patient is a 76-year-old female sent here by her PCP Dr. Barron after an abnormal computed tomography scan. Patient states that she has been having progressive shortness of breath for the last 3-4 weeks. She notices that it is worse on exertion. Patient states that she smoked about 50 years ago. Denies any chest pain or palpitations. No cough, congestion, sore throat, fever, chills. Patient states that she experiences nausea and occasional vomiting in the morning but states that symptoms improve later on in the day. No abdominal pain. Outpatient CT shows sclerotic bony metastatic disease site of primary is indeterminate. Large bilateral pleural effusions with bibasilar compressive atelectasis. Underlying mass or nodule is difficult to exclude. Fullness of the right renal collecting system. Cannot exclude hydronephrosis of uncertain etiology. - Related Data Home Medications Medication Instructions Recorded Confirmed Bumetanide [BUMEX] 0.5 mg PO DAILY 07/03/22 07/03/22 Insulin Glargine,Hum.rec.anlog 10 units SQ DAILY 07/03/22 07/03/22 [Lantus Solostar Pen] Levothyroxine Sodium [Synthroid] 125 mcg PO DAILY 07/03/22 07/03/22 Potassium Chloride ER [K-Dur 10] 10 meq PO DAILY 07/03/22 07/03/22 Simvastatin 40 mg PO HS 07/03/22 07/03/22 amLODIPine [Norvasc] 5 mg PO DAILY 07/03/22 07/03/22 metFORMIN HCL 1,000 mg PO DIRECTED 07/03/22 07/03/22 Allergies Allergy/AdvReac Type Severity Reaction Status Date / Time No Known Allergies Allergy Verified 07/03/22 19:46 Review of Systems ROS Statement: Those systems with pertinent positive or pertinent negative responses have been documented in the HPI. ROS Other: All systems not noted in ROS Statement are negative. Past Medical History Past Medical History: Diabetes Mellitus, Hyperlipidemia, Hypertension, Thyroid Disorder Additional Past Medical History / Comment(s): left leg swells at end of day every day for about a year History of Any Multi-Drug Resistant Organisms: None Reported Past Surgical History: Cholecystectomy Additional Past Surgical History / Comment(s): cholecystectomy, cataract surgery Past Anesthesia/Blood Transfusion Reactions: No Reported Reaction Past Psychological History: No Psychological Hx Reported Smoking Status: Former smoker Past Alcohol Use History: Occasional Past Drug Use History: None Reported - Past Family History Father Family Medical History: Cancer, Prostate Disorder Additional Family Medical History / Comment(s): prostate CA Mother Additional Family Medical History / Comment(s): parkinsons General Exam Limitations: no limitations General appearance: alert, in no apparent distress Head exam: Present: atraumatic, normocephalic, normal inspection Eye exam: Present: normal appearance Neck exam: Present: normal inspection, full ROM Respiratory exam: Present: decreased breath sounds (At the bilateral bases). Absent: respiratory distress, wheezes, rales, rhonchi, stridor Cardiovascular Exam: Present: regular rate, normal rhythm, normal heart sounds. Absent: systolic murmur, diastolic murmur, rubs, gallop, clicks Neurological exam: Present: alert, oriented X3, CN II-XII intact Psychiatric exam: Present: normal affect, normal mood Skin exam: Present: warm, dry, intact, normal color. Absent: rash Course Vital Signs 07/03/22 07/03/22 16:59 19:43 Temperature 97.9 F Pulse Rate 89 83 Respiratory 20 18 Rate Blood Pressure 137/59 135/66 O2 Sat by Pulse 94 L 94 L Oximetry Medical Decision Making - Medical Decision Making Was pt. sent in by a medical professional or institution (, PA, MANAGER INTEGRATION, urgent care, hospital, or fci...) When possible be specific @ -Sent in by PCP Dr. Barron Did you speak to anyone other than the patient for history (EMS, parent, family, police, friend...)? What history was obtained from this source @ -No Did you review nursing and triage notes (agree or disagree)? Why? @ -I reviewed and agree with nursing and triage notes Were old charts reviewed (outside hosp., previous admission, EMS record, old EK G, old radiological studies, urgent care reports/EKG's, fci records)? Report findings @ -No old charts were reviewed Differential Diagnosis (chest pain, altered mental status, abdominal pain women, abdominal pain men, vaginal bleeding, weakness, fever, dyspnea, syncope, headache, dizziness, GI bleed, back pain, seizure, CVA, palpatations, mental health, musculoskeletal)? @ -MDM Differential Dyspnea: Coronary syndrome, arrhythmia, tamponade, asthma, COPD, pulmonary embolism, pneumonia, pneumothorax, pulmonary effusion, anaphylaxis, diabetic ketoacidosis, flailed chest, pulmonary contusion, diaphragmatic rupture, anemia, neur omuscular this is not meant to be an all-inclusive list. EKG interpreted by me (3pts min.). @ -Sinus rhythm. Ventricular rate 83. MI interval 137. QRS 90. QT 371. QTc 411. No ischemic changes. X-rays interpreted by me (1pt min.). @ -None done CT interpreted by me (1pt min.). @ -Abdominal ascites and mesenteric and retroperitoneal lymphadenopathy. Right-sided hydronephrosis and hydroureter. Distal right ureter not well visualized. Distal ureteral obstruction is suspected. Large bilateral pleural effusions and basilar atelectasis. Diffuse osteoblastic metastatic disease. U/S interpreted by me (1pt. min.). @ -None done What testing was considered but not performed or refused? (CT, X-rays, U/S, labs)? Why? @ -None What meds were considered but not given or refused? Why? @ -None Did you discuss the management of the patient with other professionals (professionals i.e. , PA, MANAGER [employer], lab, RT, psych nurse, administrator social welfare, hotel and dining room cashier, teacher, customs and border protection officer, test case developer)? Give summary @ -Discussed with admitting physician Dr. Barron Was smoking cessation discussed for >3mins.? @ -No Was critical care preformed (if so, how long)? @ -No Were there social determinants of health that impacted care today? How? (Homelessness, low income, unemployed, alcoholism, drug addiction, transportation, low edu. Level, literacy, decrease access to med. care, halfway, rehab)? @ -No Was there de-escalation of care discussed even if they declined (Discuss DNR or withdrawal of care, Hospice)? DNR status @ -No What co-morbidities impacted this encounter? (DM, HTN, Smoking, COPD, CAD, Cancer, CVA, ARF, Chemo, Hep., AIDS, mental health diagnosis, sleep apnea, morbid obesity)? @ -None Was patient admitted / discharged? Hospital course, mention meds given and route, prescriptions, significant lab abnormalities, going to OR and other pertinent info. @ -Patient is a 76-year-old female sent in by her PCP for abnormal computed tomography scan. Patient has been complaining of progressive shortness of breath over the last 3-[address] showed bilateral pleural effusions and osteoblastic metastatic disease. On physical examination lungs sounds are diminished at the bases. I spoke with Dr. Barrno who requested CT with contrast. Lab work shows WBC 11.7. Sodium 136 CO2 31. Glucose 165. Urine shows no evidence of bleeding or infectious process. CT redemonstrates osteoblastic metastatic disease and pleural effusions, suspicious for right ureteral obstruction. Discussed with Dr. Barron who requested admission and consults to pulmonary and oncology. Patient is agreeable with this plan. I discussed this case with my attending Dr. Duenas Undiagnosed new problem with uncertain prognosis? @ -No Drug Therapy requiring intensive monitoring for toxicity (Heparin, Nitro, Insulin, Cardizem)? @ -No Were any procedures done? @ -No Diagnosis/symptom? @ -Pleural effusions Acute, or Chronic, or Acute on Chronic? @ -Acute Uncomplicated (without systemic symptoms) or Complicated (systemic symptoms)? @ -Complicated Side effects of treatment? @ -No Exacerbation, Progression, or Severe Exacerbation? @ -No Poses a threat to life or bodily function? How? (Chest pain, [place], [place], pneumonia, PE, COPD, DKA, ARF, appy, cholecystitis, CVA, Diverticulitis, Homicidal, Suicidal, threat to staff... and all critical care pts) @ -Yes Diagnosis/symptom? @Metastatic disease Acute, or Chronic, or Acute on Chronic? @Acute Uncomplicated (without systemic symptoms) or Complicated (systemic symptoms)? @Complicated Side effects of treatment? @ none Exacerbation, Progression, or Severe Exacerbation] @ no Poses a threat to life or bodily function? @Yes - Lab Data Result diagrams: 07/03/22 17:28 07/03/22 17: Lab Results 07/03/22 07/03/22 07/03/22 Range/Units 17:28 17:28 17:28 WBC 11.7 H (3.8-10.6) k/uL RBC 4.54 (3.80-5.40) m/uL Hgb 12.8 (11.4-16.0) gm/dL Hct 38.5 (34.0-46.0) % MCV 84.8 (80.0-100.0) fL MCH 28.3 (25.0-35.0) pg MCHC 33.4 (31.0-37.0) g/dL RDW 14.6 (11.5-15.5) % Plt Count 114 L (150-450) k/uL MPV 12.5 Neutrophils % (Manual) 59 % Band Neuts % (Manual) 1 % Lymphocytes % (Manual) 24 % Monocytes % (Manual) 16 % Eosinophils % (Manual) 1 % Basophils % (Manual) 1 % Neutrophils # (Manual) 7.00 (1.3-7.7) k/uL Lymphocytes # (Manual) 2.81 (1.0-4.8) k/uL Monocytes # (Manual) 1.87 H (0-1.0) k/uL Eosinophils # (Manual) 0.12 (0-0.7) k/uL Basophils # (Manual) 0.12 (0-0.2) k/uL Nucleated RBCs 0 (0-0) /100 WBC Manual Slide Review Performed Large Platelets Present Sodium 136 L (137-145) mmol/L Potassium 4.8 (3.5-5.1) mmol/L Chloride 101 (98-107) mmol/L Carbon Dioxide 31 H (22-30) mmol/L Anion Gap 4 mmol/L BUN 15 (7-17) mg/dL Creatinine 0.43 L (0.52-1.04) mg/dL Est GFR (CKD-EPI)AfAm >90 (>60 ml/min/1.73 sqM) Est GFR (CKD-EPI)NonAf >90 (>60 ml/min/1.73 sqM) Glucose 165 H (74-99) mg/dL Calcium 8.0 L (8.4-10.2) mg/dL Total Bilirubin 0.9 (0.2-1.3) mg/dL AST 24 (14-36) U/L ALT 16 (4-34) U/L Alkaline Phosphatase 54 (38-126) U/L Total Protein 6.4 (6.3-8.2) g/dL Albumin 3.6 (3.5-5.0) g/dL Urine Color Light Yellow Urine Appearance Clear (Clear) Urine pH 7.5 (5.0-8.0) Ur Specific Lynn 1.011 (1.001-1.035) Urine Protein Trace H (Negative) Urine Glucose (UA) Negative (Negative) Urine Ketones Negative (Negative) Urine Blood Negative (Negative) Urine Nitrite Negative (Negative) Urine Bilirubin Negative (Negative) Urine Urobilinogen <2.0 (<2.0) mg/dL Ur Leukocyte Esterase Negative (Negative) Disposition Clinical Impression: Pleural effusion, Metastatic disease Disposition: ADMITTED IP TO THIS HOSP Condition: Serious Time of Disposition: 19:33
--- NOTE | 2022-07-03 19:06 | CT ---
EXAMINATION TYPE: CT ChestAbdPelvis w con DATE OF EXAM: 07/03/2022 COMPARISON: Today HISTORY: bony metastatic disease CT DLP: 647.5 mGycm Automated exposure control for dose reduction was used. CONTRAST: Performed with IV Contrast, patient injected with 100 mL of Isovue 300. Images obtained from the thoracic inlet to the floor the pelvis with the IV contrast. There are large bilateral pleural effusions. Heart size is normal. There is some atelectasis in both lower lobes adjacent to the pleural fluid. No definite pericardial effusion. There are clips from cholecystectomy. Liver and spleen are intact. Spleen measures 12.5 cm. No pancre atic mass. The bile ducts are not dilated. No discrete liver mass. There is no adrenal mass. Kidneys show contrast opacification. Delayed images show contrast opacifica tion of the calyces of the left kidney. No significant calyceal contrast seen in the right kidney on the delayed images. There is right-sided hydronephrosis. There is diffuse abdominal mesenteric edema. Abdominal aorta is atheromatous. There are multiple mesenteric lymph nodes and retroperitoneal lymph nodes up to 2 cm. There is no bowel obstruction. No free air. There is abdominal ascites fluid. Appe ndix not clearly seen. No sign of thickened appendix. Right ureter is not well seen. The bladder dist ends smoothly. There is diffuse osteoblastic changes in the thoracic and lumbar spine. There is diffuse osteoblastic change in the bony pelvis and in the proximal femurs. There are multiple ribs with blastic changes. IMPRESSION: Abdominal ascites. Mesenteric and retroperitoneal lymphadenopathy. Right-sided hydronephrosis and hyd roureter. Distal right ureter not well visualized. Distal ureteral obstruction is suspected. Large bilateral pleural effusions and basilar atelectasis. Diffuse osteoblastic metastatic disease. No significant change compared to exam 2 hours ago
[2022-07-03 19:24] LABS: Band Neutrophils % 1 %; Basophils # (M) 0.12 k/uL (0-0.2); Eosinophils # (M) 0.12 k/uL (0-0.7); Lymphocytes # (M) 2.81 k/uL (1.0-4.8); Monocytes # (M) 1.87 k/uL (0-1.0); Neutrophils % (M) 59 %; Nucleated Red Blood Cells 0 /100 WBC (0-0); Total Cells Counted 200
[2022-07-03 19:27] LABS: Large Platelets Present
[2022-07-03] MEDS ORDERED: ACETAMINOPHEN TAB 325 MG TAB PO PRN (19:31)
[2022-07-03] MEDS ORDERED: NALOXONE 0.4 MG/ML 1 ML VIAL IV PRN (19:31)
[2022-07-03] MEDS ORDERED: IBUPROFEN 200 MG TAB PO PRN (23:00)
[2022-07-03] MEDS ORDERED: diphenhydrAMINE 25 MG CAP PO PRN (23:00)
[2022-07-03] MEDS: ATORVASTATIN 20 MG TAB PO SCH (23:32)
[2022-07-03] MEDS: INSULIN DETEMIR (LEVEMIR) 100 UNIT/ML SYR SQ SCH (23:32)
[2022-07-03] MEDS: metFORMIN 500 MG TAB PO SCH (23:32)
[2022-07-03] MEDS: SODIUM CHLORIDE 0.9% 1,000 ML IV SCH (23:35)
--- NOTE | 2022-07-04 03:02 | P.CNPUL ---
History of Present Illness Consult date: 07/03/22 Requesting physician: Whitley Reese Reason for consult: pleural effusion Chief complaint: Shortness of breath History of present illness: I'm seeing this patient in new consultation today 07/03/2022 on the general medical floor. This is a pleasant 76-year-old white female with past medical h istory of diabetes mellitus 2, hyperlipidemia, hypertension, hypothyroidism, and a remote history of smoking approximately 50 years ago. Patient was sent to the emergency room today by her primary care provider Dr. Steve Barron due to abnormal findings on chest/abdomen CT. Patient has apparently been experiencing shortness of breath over the last couple weeks, which prompted this evaluation. Patient denies any associated fevers, cough, chest pain, hemoptysis. She denies any history of lung disease or cancer. 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 Patient's CBC on arrival shows a WBC count 11.7, hemoglobin 12.8, hematocrit 38.5, platelets 114,000. BMP on arrival shows sodium 136, potassium 4.8, chloride 101, serum CO2 31, BUN 15, creatinine 0.43, glucose 165. Normal saline is infusing at 75 mL per hour. UA was negative. Vital signs are stable. Review of Systems REVIEW OF SYSTEMS: CONSTITUTIONAL: Denies any recent significant weight loss or weight gain. EYES: Denies change in vision. EARS, NOSE, MOUTH, THROAT: Denies headaches, denies sore throat. CARDIOVASCULAR: Denies chest pain, palpitations or syncopal episodes. RESPIRATORY: See HPI GASTROINTESTINAL: Denies change in appetite, abdominal pain, nausea and vomiting, or diarrhea GENITOURINARY: Denies hematuria, denies infections. MUSKULOSKELETAL: Denies pain, denies swelling. INTEGUMENTARY: Denies rash, denies eczema. NEUROLOGICAL: Denies recent memory loss, no recent seizure activity. PSYCHIATRIC: Denies anxiety, denies depression. HEMATOLOGIC/LYMPHATIC: Denies anemia, denies enlarged lymph node ROS unobtainable: due to endotracheal tube Past Medical History Past Medical History: Diabetes Mellitus, Hyperlipidemia, Hypertension, Thyroid Disorder Additional Past Medical History / Comment(s): left leg swells at end of day every day for about a year History of Any Multi-Drug Resistant Organisms: None Reported Past Surgical History: Cholecystectomy Additional Past Surgical History / Comment(s): cholecystectomy, cataract surgery Past Anesthesia/Blood Transfusion Reactions: No Reported Reaction Past Psychological History: No Psychological Hx Reported Smoking Status: Former smoker Past Alcohol Use History: Occasional Past Drug Use History: None Reported - Past Family History Father Family Medical History: Cancer, Prostate Disorder Additional Family Medical History / Comment(s): prostate CA Mother Additional Family Medical History / Comment(s): parkinsons Medications and Allergies Home Medications Medication Instructions Recorded Confirmed Type Bumetanide [BUMEX] 0.5 mg PO DAILY 07/03/22 07/03/22 History Insulin Glargine,Hum.rec.anlog 10 units SQ DAILY 07/03/22 07/03/22 History [Lantus Solostar Pen] Levothyroxine Sodium [Synthroid] 125 mcg PO DAILY 07/03/22 07/03/22 History Potassium Chloride ER [K-Dur 10] 10 meq PO DAILY 07/03/22 07/03/22 History Simvastatin 40 mg PO HS 07/03/22 07/03/22 History amLODIPine [Norvasc] 5 mg PO DAILY 07/03/22 07/03/22 History metFORMIN HCL 1,000 mg PO DIRECTED 07/03/22 07/03/22 History Allergies Allergy/AdvReac Type Severity Reaction Status Date / Time No Known Allergies Allergy Verified 07/03/22 19:46 Physical Exam Vitals: Vital Signs Temp Pulse Pulse Resp BP BP Pulse Ox 07/04/22 01:36 98.4 F 78 14 138/62 92 L 07/03/22 21:52 97.9 F 90 15 153/82 95 07/03/22 19:43 83 18 135/66 94 L 07/03/22 16:59 97.9 F 89 20 137/59 94 L Intake and Output 07/03/22 07/03/22 07/04/22 14:59 22:59 06:59 Other: Weight 50.349 kg Results - Laboratory Findings CBC and BMP: 07/03/22 17:28 07/03/22 17:28 Abnormal lab findings: Abnormal Labs 07/03/22 07/03/22 07/03/22 17:28 17:28 17:28 WBC 11.7 H Plt Count 114 L Monocytes # (Manual) 1.87 H Sodium 136 L Carbon Dioxide 31 H Creatinine 0.43 L Glucose 165 H Calcium 8.0 L Urine Protein Trace H - Diagnostic Findings CT scan - chest: image reviewed Assessment and Plan Assessment: Large bilateral pleural effusions found on chest, abdomen, and pelvis CT, possibly malignant in nature. 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 Source of malignancy is currently under investigation. Right-sided hydronephrosis and hydroureter with suspected distal ureteral obstructions. Renal function is stable at this time. Hypertension Hyperlipidemia Diabetes mellitus type 2 [id number] Ex-smoker Plan: Patient's medications, labs, CAT scan reviewed Possible thoracentesis in the morning with Dr. Rodgers for therapeutic and/or diagnostic purposes Not on any anticoagulants Chest ultrasound in the morning On room air Consult urology for obstructive hydronephrosis Oncology has been consulted We will continue to follow I have personally seen and examined the patient, performed the documentation and the assessment and plan as written. Number of minutes spent on the visit:30 This is a joint evaluation that was done along with the nurse practitioner. The patient was seen and evaluated. I reviewed the CAT scan of the chest and the patient has large bilateral pleural effusions. Fortunately she is not having any major respiratory distress. Nevertheless, a diagnostic thoracentesis will be needed specially with her other abnormal findings within the abdomen and skeletal system. As mentioned, the patient diffuse metastatic also blastic disease involving the thoracic and lumbar spine in addition to multiple ribs involvement, pelvic involvement, proximal fever involvement and she also has some right-sided hydronephrosis and hydroureter and a stable renal function. She has a upcoming bone scan. We'll continue to follow. Oncology has been consulted. Time with Patient: Greater than 30
[2022-07-04] MEDS: LEVOTHYROXINE 125 MCG TAB PO SCH (06:06)
[2022-07-04] MEDS ORDERED: DEXTROSE 50% SYRINGE 50 ML IVP PRN ×2 (07:39)
--- NOTE | 2022-07-04 08:12 | US ---
EXAMINATION TYPE: US venous doppler duplex LE LT DATE OF EXAM: 07/04/2022 7:52 AM COMPARISON: NONE CLINICAL HISTORY: rule out DVT. edema SIDE PERFORMED: Left TECHNIQUE: The lower extremity deep venous system is examined utilizing real time linear array sonog mathew with graded compression, doppler sonography and color-flow sonography. VESSELS IMAGED: Common Femoral Vein Deep Femoral Vein Greater Saphenous Vein * Femoral Vein Popliteal Vein Small Saphenous Vein * Proximal Calf Veins (* superficial vessels) Left Leg: Negative for DVT IMPRESSION: 1. Left lower extremity ultrasound negative for deep venous thrombosis
--- NOTE | 2022-07-04 08:17 | US ---
EXAMINATION TYPE: US chest DATE OF EXAM: 07/04/2022 COMPARISON: NONE CLINICAL HISTORY: bilateral pleural effusions. Pleural effusion TECHNIQUE: Targeted ultrasound of the posterior lower bilateral hemithoraces EXAM MEASUREMENTS: Right Pleural Effusion pocket size: 10.7 cm Right skin surface to fluid distance: 1.1 cm Liver visualized 5.6 cm deep in pocket. Left Pleural Effusion pocket size: 14.6 cm Left skin surface to fluid distance: 1.2 cm Right side marked for possible thoracentesis outside the dept. Left side marked for possible thoracentesis outside the dept. Pulmonologists are able to review the images in the patient?s EMR. IMPRESSIONS: 1. Bilateral pleural effusions
--- NOTE | 2022-07-04 08:47 | P.GSCN ---
History of Present Illness Consult date: 07/04/22 Reason for Consult: Right hydronephrosis Requesting physician: Carmelo Canada History of present illness: Patient is a 76-year-old female with a past medical history significant for diabetes mellitus, hypertension, hyperlipidemia, hypothyroidism, and a remote history of smoking.. She was sent to the emergency department on 07/03/22 by her PCP, Dr. Barron, after an abnormal computed tomography scan. Outpatient mathieu st/abdomen CT without contrast shows sclerotic bony metastatic disease site of primary is indeterminate. Large bilateral pleural effusions with bibasilar compressive atelectasis. Underlying mass or nodule is difficult to exclude. Fullness of the right renal collecting system. Cannot exclude hydronephrosis of uncertain etiology. The patient has been experiencing progressive shortness of breath for the last 3-4 weeks. No cough, congestion, sore throat, fever, chills. Chest/abdomen/pelvis CT with contrast shows abdominal ascites. Mesenteric and retroperitoneal lymphadenopathy. Right-sided hydronephrosis and hydroureter. Distal right ureter not well visualized. Distal ureteral obstruction is suspected. Patient's CBC on arrival shows a WBC count 11.7, hemoglobin 12.8, hematocrit 38.5, platelets 114,000. BMP on arrival shows sodium 136, potassium 4.8, chloride 101, serum CO2 31, BUN 15, creatinine 0.43, glucose 165. UA was negative. Review of Systems - Constitutional Reports weight loss, Denies chills, Denies fever - Cardiovascular Reports shortness of breath - Respiratory Denies cough - Gastrointestinal Reports nausea, Reports vomiting Past Medical History Past Medical History: Diabetes Mellitus, Hyperlipidemia, Hypertension, Thyroid Disorder Additional Past Medical History / Comment(s): left leg swells at end of day every day for about a year History of Any Multi-Drug Resistant Organisms: None Reported Past Surgical History: Cholecystectomy Additional Past Surgical History / Comment(s): cholecystectomy, cataract surgery Past Anesthesia/Blood Transfusion Reactions: No Reported Reaction Past Psychological History: No Psychological Hx Reported Smoking Status: Former smoker Past Alcohol Use History: Occasional Past Drug Use History: None Reported - Past Family History Father Family Medical History: Cancer, Prostate Disorder Additional Family Medical History / Comment(s): prostate CA Mother Additional Family Medical History / Comment(s): parkinsons Medications and Allergies Home Medications Medication Instructions Recorded Confirmed Type Bumetanide [BUMEX] 0.5 mg PO DAILY 07/03/22 07/03/22 History Insulin Glargine,Hum.rec.anlog 10 units SQ DAILY 07/03/22 07/03/22 History [Lantus Solostar Pen] Levothyroxine Sodium [Synthroid] 125 mcg PO DAILY 07/03/22 07/03/22 History Potassium Chloride ER [K-Dur 10] 10 meq PO DAILY 07/03/22 07/03/22 History Simvastatin 40 mg PO HS 07/03/22 07/03/22 History amLODIPine [Norvasc] 5 mg PO DAILY 07/03/22 07/03/22 History metFORMIN HCL 1,000 mg PO DIRECTED 07/03/22 07/03/22 History Allergies Allergy/AdvReac Type Severity Reaction Status Date / Time No Known Allergies Allergy Verified 07/03/22 19:46 Surgical - Exam Vital Signs Temp Pulse Resp BP Pulse Ox 97.9 F 89 20 137/59 94 L 07/03/22 16:59 07/03/22 16:59 07/03/22 16:59 07/03/22 16:59 07/03/22 16:59 General: Well developed, well nourished. No acute distress. Chronically ill appearing. HEENT: Head is atraumatic, normocephalic. Lungs: Respirations even and nonlabored. On RA CV: +1 pitting edema to bilateral lower extremities : No suprapubic tenderness. Skin: Warm and dry Neurologic: Alert and oriented 3, CN II-XII grossly intact. No focal deficits. Psychiatric: Appropriate mood and affect. Results - Labs 07/03/22 17:28 07/03/22 17:28 Abnormal Lab Results - Last 24 Hours (Table) 07/03/22 07/03/22 07/03/22 Range/Units 17:28 17:28 17:28 WBC 11.7 H (3.8-10.6) k/uL Plt Count 114 L (150-450) k/uL Monocytes # (Manual) 1.87 H (0-1.0) k/uL Sodium 136 L (137-145) mmol/L Carbon Dioxide 31 H (22-30) mmol/L Creatinine 0.43 L (0.52-1.04) mg/dL Glucose 165 H (74-99) mg/dL Calcium 8.0 L (8.4-10.2) mg/dL Urine Protein Trace H (Negative) Diabetes panel 07/03/22 Range/Units 17:28 Sodium 136 L (137-145) mmol/L Potassium 4.8 (3.5-5.1) mmol/L Chloride 101 (98-107) mmol/L Carbon Dioxide 31 H (22-30) mmol/L BUN 15 (7-17) mg/dL Creatinine 0.43 L (0.52-1.04) mg/dL Glucose 165 H (74-99) mg/dL Calcium 8.0 L (8.4-10.2) mg/dL AST 24 (14-36) U/L ALT 16 (4-34) U/L Alkaline Phosphatase 54 (38-126) U/L Total Protein 6.4 (6.3-8.2) g/dL Albumin 3.6 (3.5-5.0) g/dL Calcium panel 07/03/22 Range/Units 17:28 Calcium 8.0 L (8.4-10.2) mg/dL Albumin 3.6 (3.5-5.0) g/dL Pituitary panel 07/03/22 Range/Units 17:28 Sodium 136 L (137-145) mmol/L Potassium 4.8 (3.5-5.1) mmol/L Chloride 101 (98-107) mmol/L Carbon Dioxide 31 H (22-30) mmol/L BUN 15 (7-17) mg/dL Creatinine 0.43 L (0.52-1.04) mg/dL Glucose 165 H (74-99) mg/dL Calcium 8.0 L (8.4-10.2) mg/dL Adrenal panel 07/03/22 Range/Units 17:28 Sodium 136 L (137-145) mmol/L Potassium 4.8 (3.5-5.1) mmol/L Chloride 101 (98-107) mmol/L Carbon Dioxide 31 H (22-30) mmol/L BUN 15 (7-17) mg/dL Creatinine 0.43 L (0.52-1.04) mg/dL Glucose 165 H (74-99) mg/dL Calcium 8.0 L (8.4-10.2) mg/dL Total Bilirubin 0.9 (0.2-1.3) mg/dL AST 24 (14-36) U/L ALT 16 (4-34) U/L Alkaline Phosphatase 54 (38-126) U/L Total Protein 6.4 (6.3-8.2) g/dL Albumin 3.6 (3.5-5.0) g/dL - Imaging CT scan - abdomen: report reviewed CT scan - chest: report reviewed CT scan - pelvis: report reviewed Assessment and Plan Assessment: The patient denies any history of recurrent UTIs, kidney stones, or prior urological surgeries. The patient denies any dysuria or hematuria. The patient reports having a 40 pound weight loss over the last year. CT scans reviewed by Dr. Goodman. Hydronephrosis likely due to extrinsic compression on ureter. Urinalysis shows trace protein, negative for infection. Serum creatinine stable at 0.43. No urological interventions recommended at this time. We will continue to follow this patient. (1) Hydronephrosis, right Current Visit: Yes Status: Acute Code(s): N13.30 - UNSPECIFIED HYDRONEPHROSIS SNOMED Code(s): 64593240 Plan: - Monitor serum creatinine - No urological interventions warranted at this time Thank you for this consultation Impression and plan of care have been directed as dictated by the signing physician. Jeni Barrett nurse practitioner acting as scribe for signing physician. Jeni Barrett [facility] Palliative Care/Urology [place] [id number] Email: [email or web address] The patient has been interviewed and examined by myself. I concur with the above note. The right-sided hydronephrosis appears to be due to extrinsic compression from lymphadenopathy. The patient obviously has a significant cancer if she has bilateral pleural effusions, lytic lesions of the bone, retroperitoneal adenopathy. The urine is clear. It is unlikely that this is a urologic malignancy. At this juncture we will do retrograde for further evaluation of the mild hydronephrosis until the malignancy is potentially shabnam fied. We will follow. Guero Goodman M.D.
[2022-07-04] MEDS: BUMETANIDE 0.5 MG TABLET PO SCH (09:14)
[2022-07-04] MEDS: amLODIPine 5 MG TAB PO SCH (09:14)
[2022-07-04] MEDS: metFORMIN 500 MG TAB PO SCH ×2 (09:14→20:31)
[2022-07-04] MEDS: POTASSIUM CHLORIDE ER 10 MEQ TAB.ER.PRT PO SCH (09:15)
[2022-07-04] MEDS ORDERED: INSULIN DETEMIR (LEVEMIR) 100 UNIT/ML SYR SQ SCH (10:08)
[2022-07-04] MEDS: INSULIN DETEMIR (LEVEMIR) 100 UNIT/ML SYR SQ SCH ×2 (10:11→20:31)
[2022-07-04] MEDS ORDERED: LIDOCAINE 2% (PF) 20 MG/ML 5 ML VIAL ONE (12:07)
[2022-07-04 12:12] LABS: Free Lambda Lt Chain Qnt, Seru 2.45 mg/dL (0.57-2.63)
--- NOTE | 2022-07-04 12:30 | P.PCN ---
Date of Procedure: 07/04/22 Operative Findings: Preoperative Diagnosis: Right-sided pleural effusion Postoperative Diagnosis: right-sided pleural effusion Procedure(s) Performed: Right-sided thoracentesis Anesthesia: local Surgeon: Katie Rodgers Pathology: other Condition: stable Disposition: floor Operative Findings: A time out was performed and the chest x-ray was reviewed, the appropriate side was confirmed and marked. My hands were washed immediately prior to the procedure. I wore a surgical cap, mask with protective eyewear, sterile gown and sterile gloves throughout the procedure. The patient was prepped and draped in a sterile manner using chlorhexidine scrub after the appropriate level was percussed and confirmed by ultrasound. 1% lidocaine was used to anesthesize the skin, subcutaneous tissue, superior aspect of the rib periosteum and parietal pleura. A finder needle was then introduced over the superior aspect of the rib to locate the pleural fluid; 2colored fluid was aspirated at a depth of approximately 2 cm. A 10-blade scalpel was used to heather the skin at the inserti on site. The [id number] needle was then introduced through the skin incision into the pleural space using negative aspiration pressure and the red colometric indicator to confirm appropriate positioning of the needle. The thoracentesis catheter was then threaded without difficulty. 1250 ml of turbid colored fluid was removed without difficulty. The catheter was then removed. No immediate complications were noted during the procedure. A post-procedure chest x-ray is pending at the time of this note. The fluid will be sent for studies. Estimated blood loss is 0cc
[2022-07-04 12:33] LABS: Glucose,Whole Blood 158 mg/dL (70-110)
[2022-07-04] MEDS: INSULIN ASPART (NovoLOG) 100 UNIT/ML VIAL SQ SCH ×3 (12:52→20:31)
--- NOTE | 2022-07-04 13:32 | XR ---
EXAMINATION TYPE: XR chest 1V DATE OF EXAM: 07/04/2022 COMPARISON: 02/03/2022 HISTORY: Postthoracentesis TECHNIQUE: Single frontal view of the chest is obtained. FINDINGS: There is no sizable pneumothorax. Soft tissue folds are seen bilaterally. There is bilater al consolidation and small effusion. Elevated hemidiaphragms with reduced inspiration. No overt failu re. Surgical clips in the abdomen. IMPRESSION: 1. Bilateral lower lobe infiltrate and small effusion.
[2022-07-04] MEDS: SODIUM CHLORIDE 0.9% 1,000 ML IV SCH ×2 (14:09→22:38)
[2022-07-04 14:27] VITALS: BMI 17.4
--- NOTE | 2022-07-04 14:41 | NM ---
EXAMINATION TYPE: NM bone scan whole body DATE OF EXAM: 07/04/2022 COMPARISON: NONE HISTORY: Cancer metastasis Delayed whole-body scanning was performed following the injection of 22.8 mCi Tc 99m MDP. Images wer e acquired 4 hours post injection. FINDINGS: There is some increased radiotracer within the proximal diaphyseal medullary humeri suspicious for me tastatic disease. There is some patchy uptake within posterior left ribs over segmental region. Metastatic disease shou ld be considered. There is increased uptake within the distal diaphyseal right tibia. Correlate for metastatic disease. There is increased uptake at the bilateral tibial plateaus. There is some focal uptake within the right midfoot, more likely related to degenerative changes. Focal uptake is within the posterior right mid thoracic spine. This is nonspecific and degenerative c hange metastasis are within the differential. IMPRESSION: 1. Focal areas of uptake within the bilateral humeri and distal right tibia suggestive for metastatic disease. 2. Diffuse uptake within scattered ribs suspicious for metastatic disease. 3. Uptake within the right posterior thoracic spine is nonspecific. Metastasis and degenerative dumont e could be considered. 4. Intense uptake at the bilateral knees likely related to degenerative change.
[2022-07-04 17:17] LABS: Glucose,Whole Blood 211 mg/dL (70-110)
--- NOTE | 2022-07-04 17:53 | P.CONS ---
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 We were consulted due to osteoblastic metastatic disease seen on CT scan. Patient was referred to Dr. Connelly, when she was noted to have a mildly low platelet count on routine CBC done by her PCP, Dr Barron, in 04/24. Apparently, this was a new finding. Other aspects of her CBC were normal. Additional labs were ordered, which were negative. Her US showed possible mild liver heterogeneity, with the spleen appearing normal. It was thus felt that her low plt were related to a mild ITP or possibly early liver disease. As counts were in a safe range, she was placed on observation. She was noted to have a persistent monocytosis. BCR- ABL testing in 01/23 was negative. It was felt that she could have a CMML. However as this is typically indolent, and the pt's counts were in a safe range, she was placed on observation Upon further evaluation in clinic her CBC showed no significant change, platelet counts 129,000. WBC was 12.5, with absolute monocyte count 2.5. She was continued on observation. Patient was seen by PCP for checkup and during checkup she states she was complaining of leg swelling and shortness of breath as well as persisting generalized weakness fatigue and weight loss. Her physician sent her for CT chest and abdomen wo which revealed sclerotic bony metastatic disease. Large bilateral pleural effusion with basilar compressive atelectasis. Underlying mass or nodule is difficult to exclude. Fullness of the right renal collecting system, at which time she was referred to the ER for further evaluation. Upon presentation to the ER, CT chest abdomen and pelvis with contrast showed abdominal ascites. Mesenteric and retroperitoneal lymphadenopathy. Right-sided hydronephrosis and hydroureter. Distal right ureter not well visualized. Distal urethral obstruction is suspected. Large bilateral pleural effusions and basilar atelectasis. Diffuse osteoblastic metastatic disease. Doppler LLE negative for DVT. Pt reports she has been having generalized weakness, fatigue, and approx 40lb weight loss over the last 8 months, and more recently began experiencing decreased satiety, nausea, SOB, LLE swelling, and productive cough. Denies bone pain, chest pain, dizziness, chills, night sweats and fever. She has a hx of smoking but reports she was never a heavy smoker and quit 40 years ago. Last mammogram was 1 year ago and was normal, and last colonoscopy was approx 5 years ago and states that that study was also normal. WBC 11.7, monocytes 1.87, hgb 12.8, platelets 114. Review of Systems 10 point ROS is negative except as stated in HPI Past Medical History Past Medical History: Diabetes Mellitus, Hyperlipidemia, Hypertension, Thyroid Disorder Additional Past Medical History / Comment(s): left leg swells at end of day every day for about a year History of Any Multi-Drug Resistant Organisms: None Reported Past Surgical History: Cholecystectomy Additional Past Surgical History / Comment(s): cholecystectomy, cataract surgery Past Anesthesia/Blood Transfusion Reactions: No Reported Reaction Past Psychological History: No Psychological Hx Reported Smoking Status: Former smoker Past Alcohol Use History: Occasional Past Drug Use History: None Reported - Past Family History Father Family Medical History: Cancer, Prostate Disorder Additional Family Medical History / Comment(s): prostate CA Mother Additional Family Medical History / Comment(s): parkinsons Medications and Allergies Home Medications Medication Instructions Recorded Confirmed Type Bumetanide [BUMEX] 0.5 mg PO DAILY 07/03/22 07/04/22 History Insulin Glargine,Hum.rec.anlog 15 units SQ DAILY 07/03/22 07/04/22 History [Lantus Solostar Pen] Potassium Chloride ER [K-Dur 10] 10 meq PO DAILY 07/03/22 07/04/22 History Simvastatin 40 mg PO HS 07/03/22 07/04/22 History metFORMIN HCL 1,000 mg PO BID 07/03/22 07/04/22 History Levothyroxine Sodium [Synthroid] 100 mcg PO DAILY 07/04/22 07/04/22 History Triamcinolone 0.025% Cream 1 applic TOPICAL DAILY 07/04/22 07/04/22 History [Kenalog 0.025% Cream] amLODIPine [Norvasc] 2.5 mg PO DAILY 07/04/22 07/04/22 History Allergies Allergy/AdvReac Type Severity Reaction Status Date / Time No Known Allergies Allergy Verified 07/03/22 19:46 Physical Exam Vitals: Vital Signs Temp Pulse Pulse Resp BP BP Pulse Ox 07/04/22 01:36 98.4 F 78 14 138/62 92 L 07/03/22 21:52 97.9 F 90 15 153/82 95 07/03/22 20:00 78 14 07/03/22 19:43 83 18 135/66 94 L 07/03/22 16:59 97.9 F 89 20 137/59 94 L Intake and Output 07/03/22 07/04/22 07/04/22 22:59 06:59 14:59 Intake Total 1175 Balance 1175 Intake: Intake, IV Titration 675 Amount Sodium Chloride 0.9% 1, 675 000 ml @ 75 mls/hr IV . [id number] [facility] Rx#:[id number] Oral 500 Other: # Voids 1 2 # Bowel Movements 0 Weight 50.349 kg - Constitutional General appearance: average body habitus, no acute distress - EENT Eyes: anicteric sclerae, EOMI ENT: hearing grossly normal - Neck Neck: no lymphadenopathy, normal ROM - Respiratory Respiratory: bilateral: diminished - Cardiovascular Rhythm: regular Heart sounds: normal: S1, S2 Abnormal Heart Sounds: no systolic murmur, no diastolic murmur, no rub, no S3 Gallop, no S4 Gallop, no click, no other leg Peripheral Edema: left: 1+ - Gastrointestinal abdomen mildly distended General gastrointestinal: soft, no tenderness - Integumentary Integumentary: normal - Neurologic Neurologic: CNII-XII intact - Musculoskeletal Musculoskeletal: strength equal bilaterally - Psychiatric Psychiatric: A&O x's 3, appropriate affect, intact judgment & insight Results CBC & Chem 7: 07/03/22 17:28 07/03/22 17:28 Labs: Abnormal Lab Results - Last 24 Hours (Table) 07/03/22 07/03/22 07/03/22 Range/Units 17:28 17:28 17:28 WBC 11.7 H (3.8-10.6) k/uL Plt Count 114 L (150-450) k/uL Monocytes # (Manual) 1.87 H (0-1.0) k/uL Sodium 136 L (137-145) mmol/L Carbon Dioxide 31 H (22-30) mmol/L Creatinine 0.43 L (0.52-1.04) mg/dL Glucose 165 H (74-99) mg/dL Calcium 8.0 L (8.4-10.2) mg/dL Urine Protein Trace H (Negative) CT scan - abdomen: report reviewed CT scan - chest: report reviewed CT scan - pelvis: report reviewed Assessment and Plan (1) Metastatic disease Current Visit: Yes Status: Acute Code(s): C79.9 - SECONDARY MALIGNANT NEOPL ASM OF UNSPECIFIED SITE SNOMED Code(s): 951598362 (2) Pleural effusion Current Visit: Yes Status: Acute Priority: High Code(s): J90 - PLEURAL EFFUSION, NOT ELSEWHERE CLASSIFIED SNOMED Code(s): 37633126 Plan: Osteoblastic metastatic disease findings: -CT chest abdomen and pelvis with contrast showed abdominal ascites. Mesenteric and retroperitoneal lymphadenopathy. Right-sided hydronephrosis and hydroureter. Distal right ureter not well visualized. Distal urethral obstruction is suspected. Large bilateral pleural effusions and basilar atelectasis. Diffuse osteoblastic metastatic disease. -Nuclear medicine bone scan ordered -Will also consider paracentesis with cytology pending pleural fluid cytology results -Pt and updated on POC and are agreeable Pleural effusions: -CT chest/abd/pelvis revealed large bilateral pleural effusions -Pulmonology consulted. Plan for thoracentesis. Will order cytology to r/o malignancy -Defer to pulmonology for management attests: I have performed a H&P and developed impression and plan of care for patient, discussed with dictator. I agree with dictated note, documented as a scribe
[2022-07-04 20:28] LABS: Glucose,Whole Blood 335 mg/dL (70-110)
[2022-07-04] MEDS: ATORVASTATIN 20 MG TAB PO SCH (20:31)
[2022-07-05 03:59] LABS: Glucose, BF Source Pleural Fluid; Glucose, Body Fluid 179 mg/dL; LDH, Body Fluid Source Pleural Fluid; T. Protein, Body Fluid Source Pleural Fluid; Total Protein, Body Fluid 3720 mg/dL
[2022-07-05 05:12] LABS: Appearance,BF Cloudy
[2022-07-05] MEDS: LEVOTHYROXINE 125 MCG TAB PO SCH (05:32)
[2022-07-05 07:12] LABS: Glucose,Whole Blood 81 mg/dL (70-110)
[2022-07-05] MEDS: INSULIN ASPART (NovoLOG) 100 UNIT/ML VIAL SQ SCH ×4 (08:43→20:54)
[2022-07-05 11:09] LABS: Glucose,Whole Blood 179 mg/dL (70-110)
[2022-07-05] MEDS: amLODIPine 5 MG TAB PO SCH (11:10)
[2022-07-05] MEDS: POTASSIUM CHLORIDE ER 10 MEQ TAB.ER.PRT PO SCH (11:10)
[2022-07-05] MEDS: BUMETANIDE 0.5 MG TABLET PO SCH (11:11)
[2022-07-05] MEDS: metFORMIN 500 MG TAB PO SCH ×2 (11:33→20:53)
--- NOTE | 2022-07-05 11:58 | P.PN ---
Subjective Progress Note Date: 07/05/22 Patient is a 76-year-old female with a past medical history significant for diabetes mellitus, hypertension, hyperlipidemia, hypothyroidism, and a remote history of smoking.. She was sent to the emergency department on 07/03/22 by her PCP, Dr. Barron, after an abnormal computed tomography scan. Outpatient chest/abdomen CT without contrast shows sclerotic bony metastatic disease site of primary is indeterminate. Large bilateral pleural effusions with bibasilar compressive atelectasis. Underlying mass or nodule is difficult to exclude. Fullness of the right renal collecting system. Cannot exclude hydronephrosis of uncertain etiology. The patient has been experiencing progressive shortness of breath for the last 3-4 weeks. No cough, congestion, sore throat, fever, chills. Chest/abdomen/pelvis CT with contrast shows abdominal ascites. Mesenteric and retroperitoneal lymphadenopathy. Right-sided hydronephrosis and hydroureter. Distal right ureter not well visualized. Distal ureteral obstruction is suspected. Patient's CBC on arrival shows a WBC count 11.7, hemoglobin 12.8, hematocrit 38.5, platelets 114,000. BMP on arrival shows sodium 136, potassium 4.8, chloride 101, serum CO2 31, BUN 15, creatinine 0.43, glucose 165. UA was negative. 07/04 The patient denies any history of recurrent UTIs, kidney stones, or prior urological surgeries. The patient denies any dysuria or hematuria. The patient reports having a 40 pound weight loss over the last year. CT scans reviewed by Dr. Goodman. Hydronephrosis likely due to extrinsic compression on ureter. Urinalysis shows trace protein, negative for infection. Serum creatinine stable at 0.43. The patient obviously has a significant cancer if she has bilateral pleural effusions, lytic lesions of the bone, retroperitoneal adenopathy. The urine is clear. It is unlikely that this is a urologic malignancy. At this juncture we will do retrograde for further evaluation of the mild hydronephrosis until the malignancy is potentially clarified. Objective - Vital Signs Vital signs: Vital Signs Temp 97.4 F L 07/05/22 07:12 Pulse 64 07/05/22 08:00 Resp 16 07/05/22 08:00 BP 145/66 07/05/22 07:12 Pulse Ox 96 07/05/22 07:12 FiO2 Intake & Output 07/04/22 07/05/22 07/05/22 18:59 06:59 18:59 Intake Total 240 1140 Balance 240 1140 Weight 47.6 kg Intake: Intake, IV Titration 900 Amount Sodium Chloride 0.9% 1, 900 000 ml @ 75 mls/hr IV . [id number] [facility] Rx#:[id number] Oral 240 240 Other: Voiding Method Toilet Toilet Toilet # Voids 3 2 2 # Bowel Movements 1 - Exam General: Well developed, well nourished. No acute distress. Chronically ill appearing. HEENT: Head is atraumatic, normocephalic. Lungs: Respirations even and nonlabored. On RA CV: +1 pitting edema to bilateral lower extremities : No suprapubic tenderness. Skin: Warm and dry Neurologic: Alert and oriented 3, CN II-XII grossly intact. No focal deficits. Psychiatric: Appropriate mood and affect - Labs CBC & Chem 7: 07/03/22 17:28 07/03/22 17:28 Labs: Abnormal Lab Results - Last 24 Hours (Table) 07/04/22 07/04/22 07/04/22 Range/Units 04:30 12:32 17:15 POC Glucose (mg/dL) 158 H 211 H (70-110) mg/dL U Free Lambda Light Ch 1.23 H (0.00-0.38) mg/dL 07/04/22 07/05/22 Range/Units 20:26 11:08 POC Glucose (mg/dL) 335 H 179 H (70-110) mg/dL U Free Lambda Light Ch (0.00-0.38) mg/dL Microbiology - Last 24 Hours (Table) 07/04/22 12:25 Anaerobic Culture - Preliminary Pleural Fluid 07/04/22 12:25 Body Fluid Culture - Preliminary Pleural Fluid Assessment and Plan Assessment: The right-sided hydronephrosis appears to be due to extrinsic compression from lymphadenopathy. The patient obviously has a significant cancer if she has bilateral pleural effusions, lytic lesions of the bone, retroperitoneal adenopathy. The urine is clear. It is unlikely that this is a urologic malignancy. At this juncture we will do retrograde for further evaluation of the mild hydronephrosis until the malignancy is potentially clarified. The patient's is at the bedside and updated by Dr. Goodman. We will continue to follow this patient. (1) Hydronephrosis, right Current Visit: Yes Status: Acute Code(s): N13.30 - UNSPECIFIED HYDRONEPHROSIS SNOMED Code(s): 76303797 Plan: - No urological interventions warranted at this time Thank you for this consultation Impression and plan of care have been directed as dictated by the signing physician. Jeni Barrett nurse practitioner acting as scribe for signing physician. Jeni Barrett [facility] Palliative Care/Urology [facility] [id number] Email: [email or web address] The patient was examined and interviewed by myself. I concur with the above- mentioned note. The hydronephrosis is mild and can be dealt with once the type of cancer is clarified. Guero Goodman M.D.
--- NOTE | 2022-07-05 12:41 | P.PN ---
Subjective Progress Note Date: 07/05/22 I'm seeing this patient in new consultation today 07/03/2022 on the general medical floor. This is a pleasant 76-year-old white female with past medical history of diabetes mellitus 2, hyperlipidemia, hypertension, hypothyroidism, and a remote history of smoking approximately 50 years ago. Patient was sent to the emergency room today by her primary care provider Dr. Steve Barron due to abnormal findings on chest/abdomen CT. Patient has apparently been experiencing shortness of breath over the last couple weeks, which prompted this evaluation. Patient denies any associated fevers, cough, chest pain, hemoptysis. She denies any history of lung disease or cancer. 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 Patient's CBC on arrival shows a WBC count 11.7, hemoglobin 12.8, hematocrit 38.5, platelets 114,000. BMP on arrival shows sodium 136, potassium 4.8, chloride 101, serum CO2 31, BUN 15, creatinine 0.43, glucose 165. Normal saline is infusing at 75 mL per hour. UA was negative. Vital signs are stable. On today's evaluation, the patient is being seen in follow-up on 07/05/2022. The patient underwent a thoracentesis yesterday of the right lung. This was without any complications. The fluid seems to be an exudate based on the protein criteria, LDH and the fluid is low. Cytology is still pending for now. Meanwhile, the patient underwent a bone scan and the patient was found to have diffuse uptake within scattered ribs suspicious for metastatic disease. There was also focal areas of uptake within the bilateral humeral and right tibial bone suggestive of metastatic disease. The patient also underwent a oncology evaluation. She'll markers including a CEA and CA 15 3 within normal limits. Objective - Vital Signs Vital signs: Vital Signs Temp 97.4 F L 07/05/22 07:12 Pulse 64 07/05/22 12:15 Resp 15 07/05/22 12:15 BP 145/66 07/05/22 07:12 Pulse Ox 96 07/05/22 07:12 FiO2 Intake & Output 07/04/22 07/05/22 07/05/22 18:59 06:59 18:59 Intake Total 240 1140 Balance 240 1140 Weight 47.6 kg Intake: Intake, IV Titration 900 Amount Sodium Chloride 0.9% 1, 900 000 ml @ 75 mls/hr IV . [id number] [facility] Rx#:[id number] Oral 240 240 Other: Voiding Method Toilet Toilet Toilet # Voids 3 2 2 # Bowel Movements 1 - Exam - Constitutional General appearance: average body habitus, no acute distress - EENT Eyes: anicteric sclerae, EOMI ENT: hearing grossly normal - Neck Neck: no lymphadenopathy, normal ROM - Respiratory Respiratory: bilateral: diminished breath sounds bilaterally and is improved air entry on the right following the drainage procedure. Breath sounds are still diminished on the left. - Cardiovascular Rhythm: regular Heart sounds: normal: S1, S2 Abnormal Heart Sounds: no systolic murmur, no diastolic murmur, no rub, no S3 Gallop, no S4 Gallop, no click, no other leg Peripheral Edema: left: 1+ - Gastrointestinal abdomen mildly distended General gastrointestinal: soft, no tenderness - Integumentary Integumentary: normal - Neurologic Neurologic: CNII-XII intact - Musculoskeletal Musculoskeletal: strength equal bilaterally - Psychiatric Psychiatric: A&O x's 3, appropriate affect, intact judgment & insight - Labs CBC & Chem 7: 07/03/22 17:28 07/03/22 17:28 Labs: Abnormal Lab Results - Last 24 Hours (Table) 07/04/22 07/04/22 07/04/22 Range/Units 04:30 17:15 20:26 POC Glucose (mg/dL) 211 H 335 H (70-110) mg/dL U Free Lambda Light Ch 1.23 H (0.00-0.38) mg/dL 07/05/22 Range/Units 11:08 POC Glucose (mg/dL) 179 H (70-110) mg/dL U Free Lambda Light Ch (0.00-0.38) mg/dL Microbiology - Last 24 Hours (Table) 07/04/22 12:25 Anaerobic Culture - Preliminary Pleural Fluid 07/04/22 12:25 Body Fluid Culture - Preliminary Pleural Fluid Assessment and Plan Assessment: Large bilateral pleural effusions found on chest, abdomen, and pelvis CT, possibly malignant in nature. 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 Source of malignancy is currently under investigation. Right-sided hydronephrosis and hydroureter with suspected distal ureteral obstructions. Renal function is stable at this time. Hypertension Hyperlipidemia Diabetes mellitus type 2 [id number] Ex-smoker Plan: The pleural fluid is an exudate based on the protein criteria Awaiting pleural fluid cytology Noted the results of the bone scan May the thoracentesis of the left lung at the later stage Awaiting final pathologic confirmation of malignancy Tumor markers sent are negative
[2022-07-05 13:09] LABS: Protein, Total 6.3 g/dL (6.2-8.2)
--- NOTE | 2022-07-05 13:42 | CDI ---
Documentation Clarification Form Date: 07/05/2022 1:14:48 PM From: Jamilah Retana RN CCDS Phone: [phone] Admit Date: 07/03/2022 7:17:00 PM Patient Name: Ping Villalpando Visit Number: [id number] Discharge Date: ATTENTION: The Clinical Documentation Specialists (CDI) and [facility] Coding Staff appreciate your assistance in clarifying documentation. Please respond to the clarification below the line at the bottom and electronically sign. The CDI & [facility] Coding staff will review the response and follow-up if needed. Please note: Queries are made part of the Legal Health Record. If you have any questions, please contact the author of this message via ITS. Dr. Steve Barron The Registered Dietitian assessment on 07/04 indicates this patient meets criteria for severe malnutrition. Based on this information and the findings below, is there an additional diagnosis that is clinically appropriate for this patient? History/Risk Factors: 76-year-old female was sent to the ED from PCP for having abnormal computed tomography scan. The patient has been having progressive shortness of breath for three to four weeks. Medical History: DM, HLD, HTN and Thyroid Disorder. Clinical Indicators: RD Consult Assessment: Current BMI: 17.5kg weight 47.6 kg height 5ft 5 inch Nutrition Assessment: underfeeding, appetite is good, but early satiety with small meals Weight Loss: 9.1 kg secondary to unknown etiology. Physical findings: Severe muscle / fat wasting /temporalis / buccals / deltoids/ pectoralis Nutritional Diagnosis: Malnutrition, severe malnutrition in the setting of chronic illness Treatment: High calorie protein diet. RD Consult: See Above Monitor supplement and oral intake. Supplements: Ensure compact BID. Education: Nutrition relationship to health/disease. Recommended modifications. Malnutrition, ONS intake, meal frequency. Is there an additional diagnosis that is clinically appropriate for this patient? [ ] Severe Protein-Calorie Malnutrition [ ] Other condition, please specify [ ] Unable to Determine (Template Last Revised: June 2020) MTDD
[2022-07-05 14:31] LABS: Albumin 3.66 g/dL (3.80-4.90); Gamma Globulin 1.03 g/dL (0.70-1.50)
--- NOTE | 2022-07-05 14:49 | P.PN ---
Subjective Progress Note Date: 07/05/22 Principal diagnosis: SOB/leg swelling Upon visit today pt is resting comfortably in bed. Reports feeling well. S/p right sided thoracentesis. 1250mL removed. Reports diarrhea today. Denies SOB, and chest pain. Denies pain. No other reported complaints Objective - Vital Signs Vital signs: Vital Signs Temp 97.3 F L 07/05/22 12:24 Pulse 78 07/05/22 12:24 Resp 16 07/05/22 12:24 BP 149/69 07/05/22 12:24 Pulse Ox 98 07/05/22 12:24 FiO2 Intake & Output 07/04/22 07/05/22 07/05/22 18:59 06:59 18:59 Intake Total 240 1140 Balance 240 1140 Weight 47.6 kg Intake: Intake, IV Titration 900 Amount Sodium Chloride 0.9% 1, 900 000 ml @ 75 mls/hr IV . [id number] [facility] Rx#:[id number] Oral 240 240 Other: Voiding Method Toilet Toilet Toilet # Voids 3 2 1 # Bowel Movements 1 - Constitutional General appearance: Present: average body habitus, no acute distress - EENT Eyes: Present: anicteric sclerae, EOMI ENT: Present: hearing grossly normal - Respiratory Respiratory: bilateral: CTA - Cardiovascular Rhythm: regular Heart sounds: normal: S1, S2 Abnormal Heart Sounds: Absent: systolic murmur, diastolic murmur, rub, S3 Gallop, S4 Gallop, click, other - Gastrointestinal General gastrointestinal: Present: distended, soft. Absent: tenderness - Integumentary Integumentary: Present: normal. Absent: rash - Neurologic Neurologic Comment(s): grossly intact - Musculoskeletal Musculoskeletal: Present: strength equal bilaterally - Psychiatric Psychiatric: Present: A&O x's 3, appropriate affect, intact judgment & insight - Labs CBC & Chem 7: 07/03/22 17:28 07/03/22 17:28 Labs: Abnormal Lab Results - Last 24 Hours (Table) 07/04/22 07/04/22 07/04/22 Range/Units 04: 17:15 20:26 POC Glucose (mg/dL) 211 H 335 H (70-110) mg/dL U Free Lambda Light Ch 1.23 H (0.00-0.38) mg/dL 07/05/22 Range/Units 11:08 POC Glucose (mg/dL) 179 H (70-110) mg/dL U Free Lambda Light Ch (0.00-0.38) mg/dL Microbiology - Last 24 Hours (Table) 07/04/22 12:25 Anaerobic Culture - Preliminary Pleural Fluid 07/04/22 12:25 Body Fluid Culture - Preliminary Pleural Fluid - Imaging and Cardiology nuclear bone scan reviewed Assessment and Plan (1) Metastatic disease Current Visit: Yes Status: Acute Code(s): C79.9 - SECONDARY MALIGNANT NEOPLASM OF UNSPECIFIED SITE SNOMED Code(s): 124387853 (2) Pleural effusion Current Visit: Yes Status: Acute Priority: High Code(s): J90 - PLEURAL EFFUSION, NOT ELSEWHERE CLASSIFIED SNOMED Code(s): 91107600 Plan: Osteoblastic metastatic disease findings: -CT chest abdomen and pelvis with contrast showed abdominal ascites. Mesenteric and retroperitoneal lymphadenopathy. Right-sided hydronephrosis and hydroureter. Distal right ureter not well visualized. Distal urethral obstruction is suspected. Large bilateral pleural effusions and basilar atelectasis. Diffuse osteoblastic metastatic disease. -Nuclear medicine bone scan revealed focal areas of uptake within the bilateral humeri and distal right tibia. Diffuse uptake within scattered ribs. Uptake within the right posterior thoracic spine is non-specific. And intense uptake in bilateral knees likely related to degenerative change. -CEA and CA 15-3 normal. CA 27-29 pending -BCR-ABL and immunofixation ordered. SPEP pending. Tryptase and urine histamine ordered to r/o mastocytosis -Will consider paracentesis with cytology pending pleural fluid cytology results -Will consider bone marrow biopsy if tests are inconclusive -Patient updated on POC and are agreeable Pleural effusions: -CT chest/abd/pelvis revealed large bilateral pleural effusions -Pulmonology consulted. Thoracentesis of right lung performed, 1250mL removed. Cytology pending -Defer to pulmonology for management attests: I have performed a H&P and developed impression and plan of care for patient, discussed with dictator. I agree with dictated note, documented as a scribe
[2022-07-05 17:29] LABS: Glucose,Whole Blood 337 mg/dL (70-110)
[2022-07-05] MEDS: SODIUM CHLORIDE 0.9% 1,000 ML IV SCH (18:15)
[2022-07-05 20:24] LABS: Glucose,Whole Blood 403 mg/dL (70-110)
[2022-07-05] MEDS: ATORVASTATIN 20 MG TAB PO SCH (20:53)
[2022-07-05] MEDS: INSULIN DETEMIR (LEVEMIR) 100 UNIT/ML SYR SQ SCH (20:53)
[2022-07-06] MEDS: SODIUM CHLORIDE 0.9% 1,000 ML IV SCH ×2 (01:16→19:10)
[2022-07-06] MEDS: LEVOTHYROXINE 125 MCG TAB PO SCH (05:13)
[2022-07-06 07:12] LABS: Glucose,Whole Blood 56 mg/dL (70-110)
[2022-07-06 07:34] LABS: Glucose,Whole Blood 78 mg/dL (70-110)
[2022-07-06] MEDS: POTASSIUM CHLORIDE ER 10 MEQ TAB.ER.PRT PO SCH (10:06)
[2022-07-06] MEDS: metFORMIN 500 MG TAB PO SCH ×2 (10:06→20:04)
[2022-07-06] MEDS: BUMETANIDE 0.5 MG TABLET PO SCH (10:06)
[2022-07-06] MEDS: amLODIPine 5 MG TAB PO SCH (10:06)
[2022-07-06] MEDS: INSULIN ASPART (NovoLOG) 100 UNIT/ML VIAL SQ SCH ×4 (10:11→20:11)
[2022-07-06 11:05] LABS: Glucose,Whole Blood 193 mg/dL (70-110)
--- NOTE | 2022-07-06 13:55 | P.PN ---
Subjective Progress Note Date: 07/06/22 Principal diagnosis: SOB/leg swelling Upon visit today pt is resting comfortably in bed. Reports feeling well but fatigued. Also reports mild SOB. S/p right sided thoracentesis. 1250mL removed. Denies chest pain and dizziness. No other reported complaints Objective - Vital Signs Vital signs: Vital Signs Temp 97.3 F L 07/06/22 12:24 Pulse 85 07/06/22 12:24 Resp 16 07/06/22 12:24 BP 128/73 07/06/22 12:24 Pulse Ox 96 07/06/22 12:24 FiO2 Intake & Output 07/05/22 07/06/22 07/06/22 18:59 06:59 18:59 Intake Total 1380 Balance 1380 Intake: Intake, IV Titration 900 Amount Sodium Chloride 0.9% 1, 900 000 ml @ 75 mls/hr IV . [id number] [facility] Rx#:[id number] Oral 480 Other: Voiding Method Toilet Toilet Toilet # Voids 1 1 1 - Constitutional General appearance: Present: average body habitus, no acute distress - EENT Eyes: Present: anicteric sclerae, EOMI ENT: Present: hearing grossly normal - Respiratory Details: breathing even and unlabored - Cardiovascular Details: skin warm and dry - Integumentary Integumentary: Present: normal - Neurologic Neurologic Comment(s): grossly intact - Musculoskeletal Musculoskeletal: Present: strength equal bilaterally - Psychiatric Psychiatric: Present: A&O x's 3, appropriate affect, intact judgment & insight - Labs CBC & Chem 7: 07/03/22 17:28 07/03/22 17:28 Labs: Abnormal Lab Results - Last 24 Hours (Table) 07/04/22 07/05/22 07/05/22 Range/Units 17:28 09:56 17:27 POC Glucose (mg/dL) 337 H (70-110) mg/dL Albumin (PEP) 3.66 L (3.80-4.90) g/dL Tryptase 136 H (<11) ug/L 07/05/22 07/06/22 07/06/22 Range/Units 20:23 07:10 11:04 POC Glucose (mg/dL) 403 H 56 L 193 H (70-110) mg/dL Albumin (PEP) (3.80-4.90) g/dL Tryptase (<11) ug/L Microbiology - Last 24 Hours (Table) 07/04/22 12:25 Gram Stain - Preliminary Pleural Fluid Body Fluid Culture - Preliminary Assessment and Plan (1) Metastatic disease Current Visit: Yes Status: Acute Code(s): C79.9 - SECONDARY MALIGNANT NEOPLASM OF UNSPECIFIED SITE SNOMED Code(s): 936547148 (2) Pleural effusion Current Visit: Yes Status: Acute Priority: High Code(s): J90 - PLEURAL EFFUSION, NOT ELSEWHERE CLASSIFIED SNOMED Code(s): 68145227 Plan: Osteoblastic metastatic disease findings: -CT chest abdomen and pelvis with contrast showed abdominal ascites. Mesenteric and retroperitoneal lymphadenopathy. Right-sided hydronephrosis and hydroureter. Distal right ureter not well visualized. Distal urethral obstruction is suspected. Large bilateral pleural effusions and basilar atelectasis. Diffuse osteoblastic metastatic disease. -Nuclear medicine bone scan revealed focal areas of uptake within the bilateral humeri and distal right tibia. Diffuse uptake within scattered ribs. Uptake with in the right posterior thoracic spine is non-specific. And intense uptake in bilateral knees likely related to degenerative change. -CEA and CA 15-3 normal. CA 27-29 pending -BCR-ABL and immunofixation pending. SPEP revealed no monoclonal paraprotein. 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 Urine histamine pending -Will obtain bone marrow next week to confirm diagnosis Pleural effusions: -CT chest/abd/pelvis revealed large bilateral pleural effusions -Pulmonology consulted. Thoracentesis of right lung performed, 1250mL removed. Cytology pending -Defer to pulmonology for management
--- NOTE | 2022-07-06 16:17 | P.PN ---
Subjective Progress Note Date: 07/06/22 I'm seeing this patient in new consultation today 07/03/2022 on the general medical floor. This is a pleasant 76-year-old white female with past medical history of diabetes mellitus 2, hyperlipidemia, hypertension, hypothyroidism, and a remote history of smoking approximately 50 years ago. Patient was sent to the emergency room today by her primary care provider Dr. Steve Barron due to abnormal findings on chest/abdomen CT. Patient has apparently been experiencing shortness of breath over the last couple weeks, which prompted this evaluation. Patient denies any associated fevers, cough, chest pain, hemoptysis. She denies any history of lung disease or cancer. 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 Patient's CBC on arrival shows a WBC count 11.7, hemoglobin 12.8, hematocrit 38.5, platelets 114,000. BMP on arrival shows sodium 136, potassium 4.8, chloride 101, serum CO2 31, BUN 15, creatinine 0.43, glucose 165. Normal saline is infusing at 75 mL per hour. UA was negative. Vital signs are stable. On today's evaluation, the patient is being seen in follow-up on 07/05/2022. The patient underwent a thoracentesis yesterday of the right lung. This was without any complications. The fluid seems to be an exudate based on the protein criteria, LDH and the fluid is low. Cytology is still pending for now. Meanwhile, the patient underwent a bone scan and the patient was found to have diffuse uptake within scattered ribs suspicious for metastatic disease. There was also focal areas of uptake within the bilateral humeral and right tibial bone suggestive of metastatic disease. The patient also underwent a oncology evaluation. She'll markers including a CEA and CA 15 3 within normal limits. On 07/06/2022, the patient's condition is untreated the patient is essentially the same. Awaiting pleural fluid cytology. No final diagnoses been achieved. No signs of any respiratory distress. Objective - Vital Signs Vital signs: Vital Signs Temp 97.3 F L 07/06/22 12:24 Pulse 85 07/06/22 12:24 Resp 16 07/06/22 12:24 BP 128/73 07/06/22 12:24 Pulse Ox 96 07/06/22 12:24 FiO2 Intake & Output 07/05/22 07/06/22 07/06/22 18:59 06:59 18:59 Intake Total 1380 Balance 1380 Weight 47.6 kg Intake: Intake, IV Titration 900 Amount Sodium Chloride 0.9% 1, 900 000 ml @ 75 mls/hr IV . [id number] [facility] Rx#:[id number] Oral 480 Other: Voiding Method Toilet Toilet Toilet # Voids 1 1 1 - Exam - Constitutional General appearance: average body habitus, no acute distress - EENT Eyes: anicteric sclerae, EOMI ENT: hearing grossly normal - Neck Neck: no lymphadenopathy, normal ROM - Respiratory Respiratory: bilateral: diminished breath sounds bilaterally and is improved air entry on the right following the drainage procedure. Breath sounds are still diminished on the left. - Cardiovascular Rhythm: regular Heart sounds: normal: S1, S2 Abnormal Heart Sounds: no systolic murmur, no diastolic murmur, no rub, no S3 Gallop, no S4 Gallop, no click, no other leg Peripheral Edema: left: 1+ - Gastrointestinal abdomen mildly distended General gastrointestinal: soft, no tenderness - Integumentary Integumentary: normal - Neurologic Neurologic: CNII-XII intact - Musculoskeletal Musculoskeletal: strength equal bilaterally - Psychiatric Psychiatric: A&O x's 3, appropriate affect, intact judgment & insight - Labs CBC & Chem 7: 07/03/22 17:28 07/03/22 17:28 Labs: Abnormal Lab Results - Last 24 Hours (Table) 07/05/22 07/05/22 07/05/22 Range/Units 09:56 17:27 20:23 POC Glucose (mg/dL) 337 H 403 H (70-110) mg/dL Tryptase 136 H (<11) ug/L 07/06/22 07/06/22 Range/Units 07:10 11:04 POC Glucose (mg/dL) 56 L 193 H (70-110) mg/dL Tryptase (<11) ug/L Microbiology - Last 24 Hours (Table) 07/04/22 12:25 Gram Stain - Preliminary Pleural Fluid Body Fluid Culture - Preliminary Assessment and Plan Assessment: Large bilateral pleural effusions found on chest, abdomen, and pelvis CT, possibly malignant in nature. 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 Source of malignancy is currently under investigation. Right-sided hydronephrosis and hydroureter with suspected distal ureteral obstructions. Renal function is stable at this time. Hypertension Hyperlipidemia Diabetes mellitus type 2 [id number] Ex-smoker Plan: Clinically unchanged The pleural fluid is an exudate based on the protein criteria Awaiting pleural fluid cytology More Tumor markers are sent Noted the results of the bone scan May the thoracentesis of the left lung at the later stage Awaiting final pathologic confirmation of malignancy
[2022-07-06 17:08] LABS: Glucose,Whole Blood 141 mg/dL (70-110)
[2022-07-06] MEDS: MEGESTROL 40 MG TAB PO SCH (17:38)
[2022-07-06 19:57] LABS: Glucose,Whole Blood 340 mg/dL (70-110)
[2022-07-06] MEDS: ATORVASTATIN 20 MG TAB PO SCH (20:04)
--- NOTE | 2022-07-06 20:10 | PN ---
PROGRESS NOTE Severe protein-calorie malnutrition. MMODL / IJN: [id number] /
[2022-07-06] MEDS: INSULIN DETEMIR (LEVEMIR) 100 UNIT/ML SYR SQ SCH (21:34)
[2022-07-07] MEDS: LEVOTHYROXINE 125 MCG TAB PO SCH (06:45)
[2022-07-07 07:52] LABS: Glucose,Whole Blood 64 mg/dL (70-110)
[2022-07-07] MEDS: INSULIN ASPART (NovoLOG) 100 UNIT/ML VIAL SQ SCH ×4 (08:14→22:03)
[2022-07-07] MEDS: amLODIPine 5 MG TAB PO SCH (08:55)
[2022-07-07] MEDS: POTASSIUM CHLORIDE ER 10 MEQ TAB.ER.PRT PO SCH (08:55)
[2022-07-07] MEDS: metFORMIN 500 MG TAB PO SCH (08:55)
[2022-07-07] MEDS: MEGESTROL 40 MG TAB PO SCH (08:56)
[2022-07-07] MEDS: BUMETANIDE 0.5 MG TABLET PO SCH (08:56)
[2022-07-07 08:57] LABS: Glucose,Whole Blood 92 mg/dL (70-110)
--- NOTE | 2022-07-07 09:48 | P.PN ---
Subjective Progress Note Date: 07/07/22 Patient is in the hospital with metastatic carcinoma we are asked to see her for hydronephrosis. She has diffuse osteoblastic metastases retroperitoneal lymphadenopathy. A marrow biopsy appears to show mastocytosis. But this is preliminary. Objective - Vital Signs Vital signs: Vital Signs Temp 97.6 F 07/07/22 07:50 Pulse 81 07/07/22 07:50 Resp 16 07/07/22 07:50 BP 147/72 07/07/22 07:50 Pulse Ox 94 L 07/07/22 07:50 FiO2 Intake & Output 07/06/22 07/07/22 07/07/22 18:59 06:59 18:59 Intake Total 900 Balance 900 Weight 47.6 kg Intake: Intake, IV Titration 900 Amount Sodium Chloride 0.9% 1, 900 000 ml @ 75 mls/hr IV . [id number] [facility] Rx#:[id number] Other: Voiding Method Toilet Toilet # Voids 1 1 # Bowel Movements 1 - Labs CBC & Chem 7: 07/03/22 17:28 07/03/22 17:28 Labs: Abnormal Lab Results - Last 24 Hours (Table) 07/05/22 07/06/22 07/06/22 Range/Units 09:56 11:04 17:07 POC Glucose (mg/dL) 193 H 141 H (70-110) mg/dL Tryptase 136 H (<11) ug/L 07/06/22 07/07/22 Range/Units 19:52 07:51 POC Glucose (mg/dL) 340 H 64 L (70-110) mg/dL Tryptase (<11) ug/L Microbiology - Last 24 Hours (Table) 07/04/22 12:25 Gram Stain - Preliminary Pleural Fluid Body Fluid Culture - Preliminary Assessment and Plan (1) Hydronephrosis, right Current Visit: Yes Status: Acute Code(s): N13.30 - UNSPECIFIED HYDRONEPHROSIS SNOMED Code(s): 11883444 Plan: Recommendations: Again given the hydronephrosis is mild I do not recommend intervention until absolute diagnosis is made. I spoke with about this situation. If the disease, whatever may be, is amenable to chemotherapy then the remaining be no need for stents as as the lymphadenopathy reduce as the hydronephrosis will disappear. We will follow.
--- NOTE | 2022-07-07 12:04 | P.PN ---
Subjective Progress Note Date: 07/07/22 I'm seeing this patient in new consultation today 07/03/2022 on the general medical floor. This is a pleasant 76-year-old white female with past medical history of diabetes mellitus 2, hyperlipidemia, hypertension, hypothyroidism, and a remote history of smoking approximately 50 years ago. Patient was sent to the emergency room today by her primary care provider Dr. Steve Barron due to abnormal findings on chest/abdomen CT. Patient has apparently been experiencing shortness of breath over the last couple weeks, which prompted this evaluation. Patient denies any associated fevers, cough, chest pain, hemoptysis. She denies any history of lung disease or cancer. 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 Patient's CBC on arrival shows a WBC count 11.7, hemoglobin 12.8, hematocrit 38.5, platelets 114,000. BMP on arrival shows sodium 136, potassium 4.8, chloride 101, serum CO2 31, BUN 15, creatinine 0.43, glucose 165. Normal saline is infusing at 75 mL per hour. UA was negative. Vital signs are stable. On today's evaluation, the patient is being seen in follow-up on 07/05/2022. The patient underwent a thoracentesis yesterday of the right lung. This was without any complications. The fluid seems to be an exudate based on the protein criteria, LDH and the fluid is low. Cytology is still pending for now. Meanwhile, the patient underwent a bone scan and the patient was found to have diffuse uptake within scattered ribs suspicious for metastatic disease. There was also focal areas of uptake within the bilateral humeral and right tibial bone suggestive of metastatic disease. The patient also underwent a oncology evaluation. She'll markers including a CEA and CA 15 3 within normal limits. On 07/06/2022, the patient's condition is untreated the patient is essentially the same. Awaiting pleural fluid cytology. No final diagnoses been achieved. No signs of any respiratory distress. 07/07/2022, the patient is stable. No new complaints. Awaiting pleural fluid cytology Objective - Vital Signs Vital signs: Vital Signs Temp 97.6 F 07/07/22 07:50 Pulse 81 07/07/22 08:40 Resp 16 07/07/22 08:40 BP 147/72 07/07/22 07:50 Pulse Ox 94 L 07/07/22 07:50 FiO2 Intake & Output 07/06/22 07/07/22 07/07/22 18:59 06:59 18:59 Intake Total 900 Balance 900 Weight 47.6 kg Intake: Intake, IV Titration 900 Amount Sodium Chloride 0.9% 1, 900 000 ml @ 75 mls/hr IV . [id number] [facility] Rx#:[id number] Other: Voiding Method Toilet Toilet Toilet # Voids 1 1 # Bowel Movements 1 - Exam - Constitutional General appearance: average body habitus, no acute distress - EENT Eyes: anicteric sclerae, EOMI ENT: hearing grossly normal - Neck Neck: no lymphadenopathy, normal ROM - Respiratory Respiratory: bilateral: diminished breath sounds bilaterally and is improved air entry on the right following the drainage procedure. Breath sounds are still diminished on the left. - Cardiovascular Rhythm: regular Heart sounds: normal: S1, S2 Abnormal Heart Sounds: no systolic murmur, no diastolic murmur, no rub, no S3 Gallop, no S4 Gallop, no click, no other leg Peripheral Edema: left: 1+ - Gastrointestinal abdomen mildly distended General gastrointestinal: soft, no tenderness - Integumentary Integumentary: normal - Neurologic Neurologic: CNII-XII intact - Musculoskeletal Musculoskeletal: strength equal bilaterally - Psychiatric Psychiatric: A&O x's 3, appropriate affect, intact judgment & insight - Labs CBC & Chem 7: 07/03/22 17:28 07/03/22 17:28 Labs: Abnormal Lab Results - Last 24 Hours (Table) 07/05/22 07/06/22 07/06/22 Range/Units 09:56 17:07 19:52 POC Glucose (mg/dL) 141 H 340 H (70-110) mg/dL Tryptase 136 H (<11) ug/L 07/07/22 Range/Units 07:51 POC Glucose (mg/dL) 64 L (70-110) mg/dL Tryptase (<11) ug/L Microbiology - Last 24 Hours (Table) 07/04/22 12:25 Gram Stain - Preliminary Pleural Fluid Body Fluid Culture - Preliminary Assessment and Plan Assessment: Large bilateral pleural effusions found on chest, abdomen, and pelvis CT, possibly malignant in nature. 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 Source of malignancy is currently under investigation. Right-sided hydronephrosis and hydroureter with suspected distal ureteral obstructions. Renal function is stable at this time. Hypertension Hyperlipidemia Diabetes mellitus type 2 [id number] Ex-smoker Plan: Clinically unchanged, awaiting pleural fluid cytology The pleural fluid is an exudate based on the protein criteria More Tumor markers are sent Noted the results of the bone scan May the thoracentesis of the left lung at the later stage Awaiting final pathologic confirmation of malignancy
[2022-07-07 12:38] LABS: Glucose,Whole Blood 153 mg/dL (70-110)
[2022-07-07] MEDS: SODIUM CHLORIDE 0.9% 1,000 ML IV SCH ×2 (13:20→22:03)
[2022-07-07] MEDS: CHOLESTYRAMINE (WITH SUGAR) 4 GM PACKET PO SCH (13:20)
[2022-07-07 18:02] LABS: Glucose,Whole Blood 167 mg/dL (70-110)
[2022-07-07 21:11] LABS: Glucose,Whole Blood 258 mg/dL (70-110)
[2022-07-07] MEDS: ATORVASTATIN 20 MG TAB PO SCH (22:03)
[2022-07-07] MEDS: INSULIN DETEMIR (LEVEMIR) 100 UNIT/ML SYR SQ SCH (22:03)
[2022-07-08] MEDS: LEVOTHYROXINE 125 MCG TAB PO SCH (05:58)
[2022-07-08 07:20] LABS: Glucose,Whole Blood 61 mg/dL (70-110)
[2022-07-08] MEDS: INSULIN ASPART (NovoLOG) 100 UNIT/ML VIAL SQ SCH ×4 (07:31→21:17)
[2022-07-08 07:36] LABS: Glucose,Whole Blood 71 mg/dL (70-110)
[2022-07-08 08:58] LABS: Glucose,Whole Blood 135 mg/dL (70-110)
[2022-07-08] MEDS: SODIUM CHLORIDE 0.9% 1,000 ML IV SCH (09:02)
[2022-07-08] MEDS: POTASSIUM CHLORIDE ER 10 MEQ TAB.ER.PRT PO SCH (09:02)
[2022-07-08] MEDS: amLODIPine 5 MG TAB PO SCH (09:02)
[2022-07-08] MEDS: CHOLESTYRAMINE (WITH SUGAR) 4 GM PACKET PO SCH (09:02)
[2022-07-08] MEDS: BUMETANIDE 0.5 MG TABLET PO SCH (09:02)
[2022-07-08] MEDS: MEGESTROL 40 MG TAB PO SCH (09:02)
--- NOTE | 2022-07-08 11:50 | P.PN ---
Subjective Progress Note Date: 07/08/22 I'm seeing this patient in new consultation today 07/03/2022 on the general medical floor. This is a pleasant 76-year-old white female with past medical history of diabetes mellitus 2, hyperlipidemia, hypertension, hypothyroidism, and a remote history of smoking approximately 50 years ago. Patient was sent to the emergency room today by her primary care provider Dr. Steve Barron due to abnormal findings on chest/abdomen CT. Patient has apparently been experiencing shortness of breath over the last couple weeks, which prompted this evaluation. Patient denies any associated fevers, cough, chest pain, hemoptysis. She denies any history of lung disease or cancer. 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 Patient's CBC on arrival shows a WBC count 11.7, hemoglobin 12.8, hematocrit 38.5, platelets 114,000. BMP on arrival shows sodium 136, potassium 4.8, chloride 101, serum CO2 31, BUN 15, creatinine 0.43, glucose 165. Normal saline is infusing at 75 mL per hour. UA was negative. Vital signs are stable. On today's evaluation, the patient is being seen in follow-up on 07/05/2022. The patient underwent a thoracentesis yesterday of the right lung. This was without any complications. The fluid seems to be an exudate based on the protein criteria, LDH and the fluid is low. Cytology is still pending for now. Meanwhile, the patient underwent a bone scan and the patient was found to have diffuse uptake within scattered ribs suspicious for metastatic disease. There was also focal areas of uptake within the bilateral humeral and right tibial bone suggestive of metastatic disease. The patient also underwent a oncology evaluation. She'll markers including a CEA and CA 15 3 within normal limits. On 07/06/2022, the patient's condition is untreated the patient is essentially the same. Awaiting pleural fluid cytology. No final diagnoses been achieved. No signs of any respiratory distress. 07/07/2022, the patient is stable. No new complaints. Awaiting pleural fluid cytology 2022, stable, no active issues, awaiting pleural fluid cytology. She is currently on room air oxygen with a pulse ox of 95% Objective - Vital Signs Vital signs: Vital Signs Temp 97.9 F 07/08/22 07:20 Pulse 76 07/08/22 08:55 Resp 15 07/08/22 08:55 BP 147/73 07/08/22 07:20 Pulse Ox 95 07/08/22 07:20 FiO2 Intake & Output 07/07/22 07/08/22 07/08/22 18:59 06:59 18:59 Intake Total 240 Balance 240 Intake: Oral 240 Other: Voiding Method Toilet Toilet Toilet # Voids 4 1 2 # Bowel Movements 1 1 - Exam - Constitutional General appearance: average body habitus, no acute distress - EENT Eyes: anicteric sclerae, EOMI ENT: hearing grossly normal - Neck Neck: no lymphadenopathy, normal ROM - Respiratory Respiratory: bilateral: diminished breath sounds bilaterally and is improved air entry on the right following the drainage procedure. Breath sounds are still diminished on the left. - Cardiovascular Rhythm: regular Heart sounds: normal: S1, S2 Abnormal Heart Sounds: no systolic murmur, no diastolic murmur, no rub, no S3 Gallop, no S4 Gallop, no click, no other leg Peripheral Edema: left: 1+ - Gastrointestinal abdomen mildly distended General gastrointestinal: soft, no tenderness - Integumentary Integumentary: normal - Neurologic Neurologic: CNII-XII intact - Musculoskeletal Musculoskeletal: strength equal bilaterally - Psychiatric Psychiatric: A&O x's 3, appropriate affect, intact judgment & insight - Labs CBC & Chem 7: 07/03/22 17:28 07/03/22 17:28 Labs: Abnormal Lab Results - Last 24 Hours (Table) 07/07/22 07/07/22 07/07/22 Range/Units 12:37 18:01 21:06 POC Glucose (mg/dL) 153 H 167 H 258 H (70-110) mg/dL 07/08/22 07/08/22 Range/Units 07:19 08:57 POC Glucose (mg/dL) 61 L 135 H (70-110) mg/dL Microbiology - Last 24 Hours (Table) 07/04/22 12:25 Gram Stain - Preliminary Pleural Fluid Body Fluid Culture - Preliminary 07/04/22 12:25 Anaerobic Culture - Preliminary Pleural Fluid Assessment and Plan Assessment: Large bilateral pleural effusions found on chest, abdomen, and pelvis CT, possibly malignant in nature. 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 Source of malignancy is currently under investigation. Right-sided hydronephrosis and hydroureter with suspected distal ureteral obstructions. Renal function is stable at this time. Hypertension Hyperlipidemia Diabetes mellitus type 2 [id number] Ex-smoker Plan: Clinically unchanged, awaiting pleural fluid cytology The pleural fluid is an exudate based on the protein criteria Patient is currently on room air oxygen More Tumor markers are sent Noted the results of the bone scan No other issues for now, awaiting further workup
[2022-07-08 12:12] LABS: Glucose,Whole Blood 127 mg/dL (70-110)
[2022-07-08 17:38] LABS: Glucose,Whole Blood 254 mg/dL (70-110)
[2022-07-08 20:27] LABS: Glucose,Whole Blood 307 mg/dL (70-110)
[2022-07-08] MEDS: ATORVASTATIN 20 MG TAB PO SCH (21:14)
[2022-07-08] MEDS: INSULIN DETEMIR (LEVEMIR) 100 UNIT/ML SYR SQ SCH (21:14)
--- NOTE | 2022-07-08 22:08 | P.PN ---
Subjective This is a pleasant 76 years old female with multiple medical problems was admitted initially on 07/03 through ER for abnormal CT sent by her PCP Dr. Barron as well as shortness of breath. Patient has been evaluated by several consultants: Pulmonary, oncology team and urologist. Patient's with evidence of bilateral pleural effusion status post thoracentesis, cytology is pending. Also with evidence of diffuse osteoblastic disease on both hands involving multiple areas in the body Oncology team are planning for bone marrow biopsy next week Urologist team hold on any intervention for her right hydronephrosis total final diagnoses is obtained Patient herself was sitting in a chair, pleasant relaxed denies any specific complaints, surrounded by family members. She is hemodynamically stable No labs from today we going to order labs tomorrow Sugar level is fluctuation but patient has good appetite therefore we switch and ventral Levemir and NovoLog with meals She is on normal saline 75 mL/h which is lower to 40 mL per hour and follow-up labs tomorrow. Also we'll consult dietary team for her malnutrition Objective - Vital Signs Vital signs: Vital Signs Temp 97.9 F 07/08/22 07:20 Pulse 76 07/08/22 08:55 Resp 15 07/08/22 08:55 BP 147/73 07/08/22 07:20 Pulse Ox 95 07/08/22 07:20 FiO2 Intake & Output 07/07/22 07/08/22 07/08/22 18:59 06:59 18:59 Intake Total 240 Balance 240 Intake: Oral 240 Other: Voiding Method Toilet Toilet Toilet # Voids 4 1 2 # Bowel Movements 1 1 - Exam -GENERAL: The patient is alert and oriented x3, not in any acute distress. Well developed, well nourished. Underweight HEENT: Pupils are round and equally reacting to light. EOMI. No scleral icterus. No conjunctival pallor. Normocephalic, atraumatic. No pharyngeal erythema. No thyromegaly. CARDIOVASCULAR: S1 and S2 present. No murmurs, rubs, or gallops. PULMONARY: Chest is clear to auscultation, no wheezing or crackles. ABDOMEN: Soft, nontender, nondistended, normoactive bowel sounds. No palpable organomegaly. MUSCULOSKELETAL: No joint swelling or deformity. EXTREMITIES: No cyanosis, clubbing, or pedal edema. NEUROLOGICAL: Gross neurological examination did not reveal any focal deficits. SKIN: No rashes. no petechiae. 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 Cytology is pending Right hydroureter and hydronephrosis Moderate calorie protein malnutrition Diabetes mellitus with fluctuating glucose Plan: Follow-up cytology for pleural fluid Pulmonary team on the case Hematology/oncology team of the case a plan for bone marrow biopsy and further workup this coming week Urology team on the case and prefer to wait for final diagnoses before any intervention Diabetic consult Change insulin 5 units of Levemir and NovoLog 3 units with meals Lower normal saline 40 mL/h Labs and medication were reviewed.. Continue same treatment. Continue with symptomatic treatment. Resume home medication. Monitor labs and vitals. DVT and GI prophylaxis. Further recommendations as per clinical course of the patient DVT prophylaxis: Subcutaneous heparin GI Prophylaxis: Pepcid PT/OT: Pending Prognosis is guarded
[2022-07-09] MEDS: SODIUM CHLORIDE 0.9% 1,000 ML IV SCH (02:19)
[2022-07-09] MEDS: LEVOTHYROXINE 125 MCG TAB PO SCH (06:00)
[2022-07-09 07:11] LABS: Glucose,Whole Blood 55 mg/dL (70-110)
[2022-07-09 07:32] LABS: Glucose,Whole Blood 67 mg/dL (70-110)
[2022-07-09 07:45] LABS: Glucose,Whole Blood 74 mg/dL (70-110)
[2022-07-09] MEDS: INSULIN ASPART (NovoLOG) 100 UNIT/ML VIAL SQ SCH ×6 (07:48→20:37)
[2022-07-09 09:28] LABS: African American GFR (CKD) 116.4 (60.0-200.0); Anion Gap 8.4 mmol/L (10.00-18.00); Calcium 8.1 mg/dL (8.7-10.3); Carbon Dioxide 25.6 mmol/L (20.0-27.5); Non-African American GFR(CKD) 100.5 (60.0-200.0); Potassium 3.4 mmol/L (3.5-5.5)
[2022-07-09] MEDS: FAMOTIDINE 20 MG/2 ML VIAL IV SCH (09:45)
[2022-07-09] MEDS: amLODIPine 5 MG TAB PO SCH (09:46)
[2022-07-09] MEDS: MEGESTROL 40 MG TAB PO SCH (09:46)
[2022-07-09] MEDS: CHOLESTYRAMINE (WITH SUGAR) 4 GM PACKET PO SCH (09:46)
[2022-07-09] MEDS: POTASSIUM CHLORIDE ER 10 MEQ TAB.ER.PRT PO SCH (09:46)
[2022-07-09] MEDS: BUMETANIDE 0.5 MG TABLET PO SCH (09:46)
[2022-07-09] MEDS: HEPARIN SODIUM,PORCINE/PF 5,000 UNIT/0.5 ML SYRINGE SQ SCH ×2 (09:46→20:36)
[2022-07-09 10:06] LABS: Basophils # (A) 0.05 X 10*3/uL (0.00-0.10); Basophils % (A) 0.3 %; Eosinophils # (A) 0.02 X 10*3/uL (0.04-0.35); Eosinophils % (A) 0.1 %; HCT 36.7 % (37.2-46.3); HGB 11.9 g/dL (12.0-15.0); Immature Grans, Automated 1.7 %; Lymphocytes # (A) 3.57 X 10*3/uL (0.90-5.00); Lymphocytes % (A) 24.6 %; MCH 27.4 pg (27.0-32.0); MCHC 32.4 g/dL (32.0-37.0); MCV 84.6 fL (80.0-97.0); Monocytes # (A) 3.96 X 10*3/uL (0.20-1.00); Monocytes % (A) 27.3 %; NRBC Per 100 WBC 0 /100 WBCS (0.0-0.0); Neutrophils # (A) 6.64 X 10*3/uL (1.80-7.70); Platelet Count 136 X 10*3/uL (140-440); RBC 4.34 X 10*6/uL (4.10-5.20); RBC Morphology NORMAL; RDW 15.3 % (11.5-14.5); WBC 14.49 X 10*3/uL (4.50-10.00)
[2022-07-09 11:26] LABS: Glucose,Whole Blood 123 mg/dL (70-110)
[2022-07-09] MEDS ORDERED: INSULIN ASPART (NovoLOG) 100 UNIT/ML VIAL SQ SCH (11:59)
--- NOTE | 2022-07-09 15:20 | P.PN ---
Subjective Progress Note Date: 07/09/22 Principal diagnosis: Monocytosis Patient has no acute complaints today, denies pain, she did have questions regarding the bone marrow biopsy tomorrow. Objective - Vital Signs Vital signs: Vital Signs Temp 98.0 F 07/09/22 12:40 Pulse 86 07/09/22 12:40 Resp 16 07/09/22 12:40 BP 136/75 07/09/22 12:40 Pulse Ox 100 07/09/22 12:40 FiO2 Intake & Output 07/08/22 07/09/22 07/09/22 18:59 06:59 18:59 Intake Total 720 Balance 720 Weight 47.6 kg Intake: Oral 720 Other: Voiding Method Toilet Toilet # Voids 4 1 # Bowel Movements 1 - Constitutional General appearance: Present: average body habitus, cooperative, no acute distress - EENT Eyes: Present: anicteric sclerae, EOMI ENT: Present: hearing grossly normal - Respiratory Details: Respirations even and unlabored at rest - Cardiovascular Details: Skin warm and dry to the touch - Peripheral edema leg Peripheral Edema: bilateral: None - Neurologic Neurologic: Present: CNII-XII intact - Musculoskeletal Musculoskeletal Comment(s): Patient is able to move her own body weight independently Musculoskeletal: Present: strength equal bilaterally - Psychiatric Psychiatric: Present: A&O x's 3, appropriate affect, intact judgment & insight - Labs CBC & Chem 7: 07/09/22 03:53 07/09/22 03:53 Labs: Abnormal Lab Results - Last 24 Hours (Table) 07/08/22 07/08/22 07/09/22 Range/Units 17:36 20:25 03:53 WBC 14.49 H (4.50-10.00) X 10*3/uL Hgb 11.9 L (12.0-15.0) g/dL Hct 36.7 L (37.2-46.3) % RDW 15.3 H (11.5-14.5) % Plt Count 136 L (140-440) X 10*3/uL Plt Count Comment DECREASED A Immature Gran # 0.25 H (0.00-0.04) X 10*3/uL Monocytes # 3.96 H (0.20-1.00) X 10*3/uL Eosinophils # 0.02 L (0.04-0.35) X 10*3/uL Potassium (3.5-5.5) mmol/L Anion Gap (10.00-18.00) mmol/L Creatinine (0.6-1.5) mg/dL BUN/Creatinine Ratio (12.00-20.00) Ratio POC Glucose (mg/dL) 254 H 307 H (70-110) mg/dL Calcium (8.7-10.3) mg/dL 07/09/22 07/09/22 07/09/22 Range/Units 03:53 07:09 07:31 WBC (4.50-10.00) X 10*3/uL Hgb (12.0-15.0) g/dL Hct (37.2-46.3) % RDW (11.5-14.5) % Plt Count (140-440) X 10*3/uL Plt Count Comment Immature Gran # (0.00-0.04) X 10*3/uL Monocytes # (0.20-1.00) X 10*3/uL Eosinophils # (0.04-0.35) X 10*3/uL Potassium 3.4 L (3.5-5.5) mmol/L Anion Gap 8.40 L (10.00-18.00) mmol/L Creatinine 0.4 L (0.6-1.5) mg/dL BUN/Creatinine Ratio 30.00 H (12.00-20.00) Ratio POC Glucose (mg/dL) 55 L 67 L (70-110) mg/dL Calcium 8.1 L (8.7-10.3) mg/dL 07/09/22 Range/Units 11:24 WBC (4.50-10.00) X 10*3/uL Hgb (12.0-15.0) g/dL Hct (37.2-46.3) % RDW (11.5-14.5) % Plt Count (140-440) X 10*3/uL Plt Count Comment Immature Gran # (0.00-0.04) X 10*3/uL Monocytes # (0.20-1.00) X 10*3/uL Eosinophils # (0.04-0.35) X 10*3/uL Potassium (3.5-5.5) mmol/L Anion Gap (10.00-18.00) mmol/L Creatinine (0.6-1.5) mg/dL BUN/Creatinine Ratio (12.00-20.00) Ratio POC Glucose (mg/dL) 123 H (70-110) mg/dL Calcium (8.7-10.3) mg/dL Microbiology - Last 24 Hours (Table) 07/04/22 12:25 Anaerobic Culture - Final Pleural Fluid 07/04/22 12:25 Gram Stain - Final Pleural Fluid Body Fluid Culture - Final 07/07/22 11:20 Stool Culture - Preliminary Stool - Imaging and Cardiology Nuclear medicine bone scan report reviewed Assessment and Plan (1) Monocytosis Current Visit: Yes Status: Chronic Priority: High Code(s): D72.821 - MONOCYTOSIS (SYMPTOMATIC) SNOMED Code(s): 57138593 (2) Bone lesion Current Visit: Yes Status: Acute Priority: High Code(s): M89.9 - DISORDER OF BONE, UNSPECIFIED SNOMED Code(s): 397065583 Plan: Monocytosis -Patient has seen Dr. Connelly in the past for low platelets and monocytosis. -Monocytosis is progressive. Patient's now having constitutional symptoms. Nuclear medicine bone scan is showing blastic lesions. -Bone marrow biopsy is recommended. -Dr. Jeremy Fraser reviewed the procedure, risks, follow-up in 1-2 weeks for biopsy results. All of patient's questions were answered her satisfaction. She is james ling to proceed. Bone marrow scheduled for tomorrow morning. attests: I seen and examined patient, performed H&P, developed impression and plan of care. Discussed with dictator. Agree with documentation, dictated as a scribe
[2022-07-09 17:17] LABS: Glucose,Whole Blood 246 mg/dL (70-110)
[2022-07-09 20:15] LABS: Glucose,Whole Blood 214 mg/dL (70-110)
[2022-07-09] MEDS: ATORVASTATIN 20 MG TAB PO SCH (20:36)
--- NOTE | 2022-07-09 23:50 | PN ---
PROGRESS NOTE DATE OF SERVICE: 07/09/2022 SUBJECTIVE: This is a 76-year-old woman who was admitted with diffuse osteoblastic disease suspicious of metastatic cancer, also had pleural effusion. The patient was also seen by multiple consultants also. cytology is pending at this time. OBJECTIVE: VITAL SIGNS: Pulse is 86, blood pressure 130/70, respirations 16. CHEST: A few scattered rhonchi and crackles. ABDOMEN: Soft. NERVOUS SYSTEM: No focal deficits. LABORATORY DATA: WBC 14.9. Other labs are noted. ASSESSMENT: 1. Large bilateral pleural effusion, possibly malignant. 2. Right-sided hydronephrosis. 3. Hypertension. 4. Hyperlipidemia. 5. Multiple medical issues. RECOMMENDATIONS: Recommend to continue current medications. Continue symptomatic treatment. Repeat labs. Otherwise, we will await the cytology report from the pleural fluid. Guarded prognosis. Further recommendations to follow. MMODL / IJN: [id number] / MTDD
[2022-07-10] MEDS: HEPARIN SODIUM,PORCINE/PF 5,000 UNIT/0.5 ML SYRINGE SQ SCH (00:54)
[2022-07-10] MEDS: LEVOTHYROXINE 125 MCG TAB PO SCH (05:54)
[2022-07-10] MEDS: SODIUM CHLORIDE 0.9% 1,000 ML IV SCH (05:55)
[2022-07-10] MEDS ORDERED: INSULIN DETEMIR (LEVEMIR) 100 UNIT/ML SYR SQ SCH (07:00)
[2022-07-10] MEDS ORDERED: PROPOFOL 10 MG/ML 20 ML VIAL IV ONE (07:05)
[2022-07-10] MEDS ORDERED: LIDOCAINE 2% INJ 20 MG/ML (2 ML VIAL) ONE (07:05)
[2022-07-10] MEDS ORDERED: PHENYLEPHRINE-0.9% NACL SYG 1,000 MCG/10 ML SYRINGE ONE (07:05)
[2022-07-10] MEDS ORDERED: IV FLUID CONTINUATION 800 ML IV ONE (07:12)
[2022-07-10 08:13] LABS: Glucose,Whole Blood 208 mg/dL (70-110)
[2022-07-10 08:24] LABS: HGB 13.9 gm/dL (11.4-16.0); MCH 28.4 pg (25.0-35.0); MCV 85.9 fL (80.0-100.0); Mean Platelet Volume 13.9; Platelet Count 130 k/uL (150-450); RBC 4.89 m/uL (3.80-5.40); WBC 13.6 k/uL (3.8-10.6)
[2022-07-10] MEDS: INSULIN ASPART (NovoLOG) 100 UNIT/ML VIAL SQ SCH ×6 (08:27→18:02)
--- NOTE | 2022-07-10 09:30 | OP ---
OPERATIVE REPORT DATE OF SERVICE : PROCEDURE PERFORMED: Bone marrow biopsy with aspiration under general and local sedation. PREOPERATIVE DIAGNOSIS: Systemic mastocytosis. POSTOPERATIVE DIAGNOSIS: Systemic mastocytosis. DESCRIPTION OF PROCEDURE: Ms. Villalpando was placed in the left lateral decubitus position following administration of general sedation. Right posterior iliac crest was palpated. This area was sterilized with 3 swabs of Betadine and 3 swabs of alcohol in addition to placing a sterile drape. 10 mL of 1% lidocaine was applied to the periosteum. A 0.2 to 0.3 cm incision into the skin was placed. A 4-inch Jamshidi needle was then advanced to obtain 16 mL of bone marrow aspirant. Initial pass at obtaining core biopsy was unsuccessful. Two additional passes obtaining a 0.2 and 0.4 cm core biopsy was obtained. Pressure bandage was then placed. Ms. Villalpando tolerated the procedure without any significant complications. Aspirate and core biopsy will be sent for morphology, flow cytometry, cytogenetics, as well as NGS studies. These will be followed up on outpatient. Ms. Villalpando returned to the floor for additional management. MMODL / IJN: [id number] /
[2022-07-10 09:44] LABS: Lymphocytes # (M) 4.22 k/uL (1.0-4.8); Monocytes # (M) 3.13 k/uL (0-1.0); Neutrophils # (M) 6.39 k/uL (1.3-7.7); Neutrophils % (M) 47 %; Nucleated Red Blood Cells 0 /100 WBC (0-0); Total Cells Counted 200
[2022-07-10 09:45] LABS: Large Platelets Present
[2022-07-10 09:47] LABS: Reticulocyte % 1.8 % (0.5-2.0)
[2022-07-10 11:14] LABS: Glucose,Whole Blood 325 mg/dL (70-110)
[2022-07-10 11:21] LABS: African American GFR (CKD) 108.2 (60.0-200.0); Albumin 3.9 g/dL (3.8-4.9); Albumin/Globulin Ratio 1.63 (1.60-3.17); Anion Gap 9.1 mmol/L (10.00-18.00); Blood Urea Nitrogen 10.5 mg/dL (9.0-27.0); Calcium 8.6 mg/dL (8.7-10.3); Carbon Dioxide 27.9 mmol/L (20.0-27.5); Globulin 2.4 g/dL (1.6-3.3); Non-African American GFR(CKD) 93.4 (60.0-200.0); Total Bilirubin 0.5 mg/dL (0.30-1.20); Total Protein 6.3 g/dL (6.2-8.2)
[2022-07-10] MEDS: amLODIPine 5 MG TAB PO SCH (12:39)
[2022-07-10] MEDS: POTASSIUM CHLORIDE ER 10 MEQ TAB.ER.PRT PO SCH (12:39)
[2022-07-10] MEDS: BUMETANIDE 0.5 MG TABLET PO SCH (12:39)
[2022-07-10] MEDS: FAMOTIDINE 20 MG/2 ML VIAL IV SCH (12:40)
[2022-07-10] MEDS: CHOLESTYRAMINE (WITH SUGAR) 4 GM PACKET PO SCH (12:40)
[2022-07-10] MEDS: MEGESTROL 40 MG TAB PO SCH (12:40)
[2022-07-10 13:32] VITALS: BP 134/79; PULSE 79; RESP 18; TEMP 97.5
--- NOTE | 2022-07-10 16:42 | P.PN ---
Subjective Progress Note Date: 07/10/22 Principal diagnosis: Monocytosis Patient seen after bone marrow biopsy. She is doing well. She denies any pain, bleeding or swelling. Objective - Vital Signs Vital signs: Vital Signs Temp 97.5 F L 07/10/22 13:31 Pulse 79 07/10/22 13:31 Resp 18 07/10/22 13:31 BP 134/79 07/10/22 13:31 Pulse Ox 98 07/10/22 13:31 FiO2 Intake & Output 07/09/22 07/10/22 07/10/22 18:59 06:59 18:59 Intake Total 300 Balance 300 Weight 47.6 kg Intake: IV 300 Other: Voiding Method Toilet Toilet # Voids 1 2 # Bowel Movements 1 - Constitutional General appearance: Present: average body habitus, cooperative, no acute distress - EENT Eyes: Present: anicteric sclerae, EOMI ENT: Present: hearing grossly normal - Respiratory Details: Respirations even and unlabored at rest - Cardiovascular Rhythm: regular - Integumentary Integumentary Comment(s): Pressure dressing intact - Neurologic Neurologic: Present: CNII-XII intact - Musculoskeletal Musculoskeletal: Present: strength equal bilaterally - Psychiatric Psychiatric: Present: A&O x's 3, appropriate affect, intact judgment & insight - Labs CBC & Chem 7: 07/10/22 06:55 07/10/22 06:55 Labs: Abnormal Lab Results - Last 24 Hours (Table) 07/09/22 07/09/22 07/10/22 Range/Units 17:16 20:14 06:55 WBC 13.6 H (3.8-10.6) k/uL Plt Count 130 L (150-450) k/uL Monocytes # (Manual) 3.13 H (0-1.0) k/uL Carbon Dioxide (20.0-27.5) mmol/L Anion Gap (10.00-18.00) mmol/L Creatinine (0.6-1.5) mg/dL BUN/Creatinine Ratio (12.00-20.00) Ratio Glucose (70-110) mg/dL POC Glucose (mg/dL) 246 H 214 H (70-110) mg/dL Calcium (8.7-10.3) mg/dL AST (13-35) U/L ALT (8-44) U/L 07/10/22 07/10/22 07/10/22 Range/Units 06:55 08:11 11:12 WBC (3.8-10.6) k/uL Plt Count (150-450) k/uL Monocytes # (Manual) (0-1.0) k/uL Carbon Dioxide 27.9 H (20.0-27.5) mmol/L Anion Gap 9.10 L (10.00-18.00) mmol/L Creatinine 0.5 L (0.6-1.5) mg/dL BUN/Creatinine Ratio 21.00 H (12.00-20.00) Ratio Glucose 199 H (70-110) mg/dL POC Glucose (mg/dL) 208 H 325 H (70-110) mg/dL Calcium 8.6 L (8.7-10.3) mg/dL AST 79 H (13-35) U/L ALT 63 H (8-44) U/L Assessment and Plan (1) Monocytosis Current Visit: Yes Status: Chronic Priority: High Code(s): D72.821 - MONOCYTOSIS (SYMPTOMATIC) SNOMED Code(s): 50770153 (2) Bone lesion Current Visit: Yes Status: Acute Priority: High Code(s): M89.9 - DISORDER OF BONE, UNSPECIFIED SNOMED Code(s): 334329864 Plan: Monocytosis -Patient has seen Dr. Connelly in the past for low platelets and monocytosis. -Monocytosis is progressive. Patient's now having constitutional symptoms. Nuclear medicine bone scan is showing blastic lesions. -Bone marrow biopsy done today. Reviewed the following with patient:bTylenol for any discomfort. Can remove the pressure dressing later on tonight. Report any unusual pain or fevers to the office immediately. -Follow-up Dr. Connelly in the next 1-2 weeks for biopsy results, prognosis, treatment options. Patient is okay from a Hematology standpoint to be discharged once she has been cleared by Attending and other consulting Physicians attests: I seen and examined patient, performed H&P, developed impression and plan of care. Discussed with dictator. Agree with documentation, dictated as a scribe
[2022-07-10 17:09] LABS: Glucose,Whole Blood 185 mg/dL (70-110)
== END 2022-07-10 20:43 | disposition home or self-care (01) | DRG 542 ==
LOC: EC 16:46 → 5NMEDONC 19:17
PROVIDERS: ADMIT Family Medicine; ATTEND Family Medicine
PROC: 0W993ZZ Drainage of Right Pleural Cavity, Percutaneous Approach (ICD-10-PCS; principal; 2022-07-04)
PROC: 07DR3ZX Extraction of Iliac Bone Marrow, Percutaneous Approach, Diagnostic (ICD-10-PCS; 2022-07-10)
DX: C79.51 Secondary malignant neoplasm of bone (principal); E43 Unspecified severe protein-calorie malnutrition; J91.8 Pleural effusion in other conditions classified elsewhere; D47.02 Systemic mastocytosis; C93.10 Chronic myelomonocytic leukemia not having achieved remission; D69.3 Immune thrombocytopenic purpura; R18.8 Other ascites; N13.1 Hydronephrosis with ureteral stricture, not elsewhere classified; J98.11 Atelectasis; Z68.1 Body mass index [BMI] 19.9 or less, adult; I10 Essential (primary) hypertension; E03.9 Hypothyroidism, unspecified; E11.9 Type 2 diabetes mellitus without complications; R59.0 Localized enlarged lymph nodes; N36.8 Other specified disorders of urethra; M79.89 Other specified soft tissue disorders; E78.5 Hyperlipidemia, unspecified; Z87.891 Personal history of nicotine dependence; Z79.899 Other long term (current) drug therapy; Z79.890 Hormone replacement therapy; Z79.84 Long term (current) use of oral hypoglycemic drugs; Z79.4 Long term (current) use of insulin
CPT/HCPCS: 36415; 38222; 71045; 71250; 71260; 74150; 74177; 76604; 78306; 80048; 80053; 81003; 81206; 82378; 82570; 82945; 83036; 83520; 83615; 83883; 84157; 84165; 85025; 85045; 86300; 86334; 87045; 87046; 87070; 87075; 87205; 87635; 88108; 88305; 88341; 88342; 89050; 93005; 94760; 99285

== ENCOUNTER → 2022-07-03 | Outpatient (CLI) | payer MEDICARE, OTHER ==
--- NOTE | 2022-07-03 16:23 | CT ---
EXAMINATION TYPE: CT chest abdomen wo con DATE OF EXAM: 07/03/2022 COMPARISON: 02/04/2022 HISTORY: pt states GRACE and recent fluid around heart. CT DLP: 230.50mGycm Unenhanced CT of the Chest, Abdomen Unenhanced CT of the chest ,abdomen is performed. The lack of intravenous contrast limits evaluation of the solid and hollow viscera. Oral contrast: None CT Chest: LUNGS: Large bilateral pleural effusions layering from the lung bases through the lung apices. Verena l AP dimension on the right is 5.8 cm and on the left 5.1 cm. There is basilar compressive atelectasi s. MEDIASTINUM: Thoracic aorta is of normal caliber. The heart is not enlarged. No evidence for media stinal mass or adenopathy. No evidence of pericardial effusion. HILAR STRUCTURES: No evidence for mass. No hilar adenopathy is appreciated. OTHER: No significant abnormality. CONTRAST CT ABDOMEN LIVER/GB: The gallbladder surgically absent. No space occupying hepatic lesion. Biliary tree is of no rmal caliber. PANCREAS: No inflammation. No distinct mass. SPLEEN: No splenic enlargement. No lesion seen. ADRENALS: No nodule. No thickening. KIDNEYS/BLADDER: Fullness of the right renal collecting system. Limited evaluation given the lack of contrast. 2 mm nonobstructing calculus upper pole left kidney. No distinct renal mass. BOWEL: Visualized bowel loops are of normal caliber. No evidence of free air. Nonvisualization of the appendix. Pelvic bowel loops not imaged. LYMPH NODES: No greater than 1cm abdominal or pelvic lymph nodes are appreciated. AORTA: No significant abnormality. OSSEOUS STRUCTURES: Sclerotic osseous densities noted felt to be compatible with bony metastatic dise ase throughout the visualized thoracic and lumbar segments. Mild superior endplate loss of height inv olving the L2. Sclerosis of the iliac wings noted as well right greater than left. Suspect lesions of the ribs. OTHER: No significant additional abnormality is seen. IMPRESSION: 1. Sclerotic bony metastatic disease. Site of primary is indeterminate. 2. Large bilateral pleural effusions with basilar compressive atelectasis. Underlying mass or nodule is difficult to exclude. 3. Fullness of the right renal collecting system. I cannot exclude hydronephrosis of uncertain etiolo gy.
== END | disposition home or self-care (01) ==
LOC: RADCTMAIN 14:24
PROVIDERS: ATTEND Family Medicine
DX: C79.51 Secondary malignant neoplasm of bone (principal); J90 Pleural effusion, not elsewhere classified; J98.11 Atelectasis; R10.84 Generalized abdominal pain; R11.2 Nausea with vomiting, unspecified
CPT/HCPCS: 71250; 74150

== ENCOUNTER 2022-07-27 16:08 | Emergency (ER) | payer MEDICARE, OTHER ==
[2022-07-27 16:20] VITALS: TEMP 97.5
--- NOTE | 2022-07-27 16:56 | ED ---
General Adult HPI - General Chief complaint: Nausea/Vomiting/Diarrhea Stated complaint: Vomiting Time Seen by Provider: 07/27/22 16:21 Source: patient, RN notes reviewed Mode of arrival: wheelchair Limitations: no limitations - History of Present Illness Initial comments: 76-year-old female presents to the emergency department with chief complaint of nausea and vomiting. She states that it has been going on for 2 weeks. She states that she has been vomiting almost daily in the morning but it can occur at any point in the day. She states she talked to Dr. Barron this afternoon and was told to come in for further workup. She states that she was recently hospitalized for difficulty breathing. She reports upcoming outpatient appointments with oncology. - Related Data Home Medications Medication Instructions Recorded Confirmed Bumetanide [BUMEX] 0.5 mg PO DAILY 07/03/22 07/04/22 Insulin Glargine,Hum.rec.anlog 15 units SQ DAILY 07/03/22 07/04/22 [Lantus Solostar Pen] Potassium Chloride ER [K-Dur 10] 10 meq PO DAILY 07/03/22 07/04/22 Simvastatin 40 mg PO HS 07/03/22 07/04/22 Triamcinolone 0.025% Cream 1 applic TOPICAL DAILY 07/04/22 07/04/22 [Kenalog 0.025% Cream] Previous Rx's Medication Instructions Recorded Acetaminophen Tab [Tylenol] 650 mg PO Q6HR PRN tab 07/10/22 Cholestyramine (with Sugar) 4 gm PO DAILY@1000 30 Days #30 07/10/22 [Questran Packet] packet INSULIN ASPART (NovoLOG) [NovoLOG 3 unit SQ AC-TID 100 Days #100 each 07/10/22 (formulary)] Ibuprofen [Advil] 200 mg PO HS PRN tab 07/10/22 Levothyroxine Sodium [Synthroid] 125 mcg PO DAILY@0630 90 Days #90 07/10/22 tab amLODIPine [Norvasc] 5 mg PO DAILY 90 Days #90 tab 07/10/22 diphenhydrAMINE [Benadryl] 25 mg PO HS PRN cap 07/10/22 Allergies Allergy/AdvReac Type Severity Reaction Status Date / Time No Known Allergies Allergy Verified 07/27/22 16:20 Review of Systems ROS Statement: Those systems with pertinent positive or pertinent negative responses have been documented in the HPI. ROS Other: All systems not noted in ROS Statement are negative. Past Medical History Past Medical History: Diabetes Mellitus, Hyperlipidemia, Hypertension, Thyroid Disorder Additional Past Medical History / Comment(s): left leg swells at end of day every day for about a year History of Any Multi-Drug Resistant Organisms: None Reported Past Surgical History: Cholecystectomy Additional Past Surgical History / Comment(s): cholecystectomy, cataract surgery Past Anesthesia/Blood Transfusion Reactions: No Reported Reaction Past Psychological History: No Psychological Hx Reported Smoking Status: Former smoker Past Alcohol Use History: Occasional Past Drug Use History: None Reported - Past Family History Father Family Medical History: Cancer, Prostate Disorder Additional Family Medical History / Comment(s): prostate CA Mother Additional Family Medical History / Comment(s): parkinsons General Exam Limitations: no limitations General appearance: alert, in no apparent distress Head exam: Present: atraumatic, normocephalic, normal inspection Eye exam: Present: normal appearance ENT exam: Present: normal exam, mucous membranes moist Respiratory exam: Present: decreased breath sounds. Absent: normal lung sounds bilaterally, respiratory distress, wheezes, rales, rhonchi, stridor Cardiovascular Exam: Present: regular rate, normal rhythm, normal heart sounds. Absent: systolic murmur, diastolic murmur, rubs, gallop, clicks GI/Abdominal exam: Present: distended, normal bowel sounds Neurological exam: Present: alert, oriented X3 Psychiatric exam: Present: normal affect, normal mood Skin exam: Present: warm, dry, intact, normal color. Absent: rash Course Vital Signs 07/27/22 07/27/22 07/27/22 16:17 18:00 19:13 Temperature 97.5 F L Pulse Rate 84 70 92 Respiratory 20 18 18 Rate Blood Pressure 145/90 138/88 138/65 O2 Sat by Pulse 95 98 95 Oximetry 07/27/22 20:39 Temperature Pulse Rate 84 Respiratory 18 Rate Blood Pressure 121/84 O2 Sat by Pulse 93 L Oximetry Medical Decision Making - Medical Decision Making Was pt. sent in by a medical professional or institution (, PA, FLOOR ASSEMBLER, urgent care, hospital, or group home...) When possible be specific @ -Patient was sent in by Dr. Barron for evaluation of nausea and vomiting Did you speak to anyone other than the patient for history (EMS, parent, family, police, friend...)? What history was obtained from this source @ -No Did you review nursing and triage notes (agree or disagree)? Why? @ -I reviewed and agree with nursing and triage notes Were old charts reviewed (outside hosp., previous admission, EMS record, old EKG, old radiological studies, urgent care reports/EKG's, group home records)? Report findings @ -Records from prior hospitalization reviewed including prior CT abdomen and pelvis which was compared to CT abdomen and pelvis was obtained today Differential Diagnosis (chest pain, altered mental status, abdominal pain women, abdominal pain men, vaginal bleeding, weakness, fever, dyspnea, syncope, headache, dizziness, GI bleed, back pain, seizure, CVA, palpatations, mental health, musculoskeletal)? @ -Differential Abdominal Pain Women: Appendicitis, Cholecystitis, diverticulosis, ischemic bowel, pancreatitis, hepatitis, UTI, gastroenteritis, AAA, incarcerated hernia, bowel obstruction, constipation, inflammatory bowel, hepatitis, peptic ulcer disease, splenic in farction, perforated viscus, vulvitis, ovarian torsion, PID, kidney stone, placenta abruption, this is not meant to be an all-inclusive list EKG interpreted by me (3pts min.). @ -None X-rays interpreted by me (1pt min.). @ -XR KUB showed nonobstructive bowel gas pattern CT interpreted by me (1pt min.). @ -CT abdomen and pelvis large bilateral pleural effusions essentially unchanged. Diffuse osteoblastic metastatic disease. Stable right-sided hydronephrosis. Small bowel wall thickening may reflect enteritis. Changes of anasarca U/S interpreted by me (1pt. min.). @ -None done What testing was considered but not performed or refused? (CT, X-rays, U/S, labs)? Why? @ -None What meds were considered but not given or refused? Why? @ -None Did you discuss the management of the patient with other professionals (professionals i.e. , PA, FLOOR ASSEMBLER, lab, RT, psych nurse, manager social responsibility, machine tech, teacher, security control room officer, nurse outreach case manager)? Give summary @ -Case was discussed with patient's primary care provider, Dr. Barron. Findings of CBC, CMP, UA, CT abdomen and pelvis were discussed. He agreed that patient is stable to be discharged. Was smoking cessation discussed for >3mins.? @ -No Was critical care preformed (if so, how long)? @ -No Were there social determinants of health that impacted care today? How? (Homelessness, low income, unemployed, alcoholism, drug addiction, transportation, low edu. Level, literacy, decrease access to med. care, fci, rehab)? @ -No Was there de-escalation of care discussed even if they declined (Discuss DNR or withdrawal of care, Hospice)? DNR status @ -No What co-morbidities impacted this encounter? (DM, HTN, Smoking, COPD, CAD, Cancer, CVA, ARF, Chemo, Hep., AIDS, mental health diagnosis, sleep apnea, morbid obesity)? @ -None Was patient admitted / discharged? Hospital course, mention meds given and route, prescriptions, significant lab abnormalities, going to OR and other per tinent info. @ -Discharged. Patient presented to emergency department with chief complaint of 2 weeks of vomiting. She states that she does not vomit daily but feels nauseous frequently. She states that she is feeling well at the time of visit. Patient was sent in by Dr. Barron after she spoke with him on the phone. CBC and CMP were obtained and essentially unchanged from her recent hospitalization. UA was obtained which was within normal limits. KUB x-ray showed nonobstructive bowel gas pattern. CT abdomen and pelvis showed bilateral pleural effusion which were essentially unchanged, diffuse osteoblastic metastatic disease, stable right-sided hydronephrosis, small bowel wall thickening, changes of anasarca. Dr. Barron was contacted regarding the patient and was informed of the findings. Dr. Barron agreed that she was stable to go home. Patient discharged with Zofran starter pack. Case is discussed with my attending, Dr. Pardo. Patient discharged in stable condition. Undiagnosed new problem with uncertain prognosis? @ -No Drug Therapy requiring intensive monitoring for toxicity (Heparin, Nitro, Insulin, Cardizem)? @ -No Were any procedures done? @ -No Diagnosis/symptom? @ -Nausea and vomiting Acute, or Chronic, or Acute on Chronic? @ -Acute Uncomplicated (without systemic symptoms) or Complicated (systemic symptoms)? @ -Uncomplicated Side effects of treatment? @ -No Exacerbation, Progression, or Severe Exacerbation? @ -No Poses a threat to life or bodily function? How? (Chest pain, [place], CO, pneumonia, PE, COPD, DKA, ARF, appy, cholecystitis, CVA, Diverticulitis, Homicidal, Suicidal, threat to staff... and all critical care pts) @ -No - Lab Data Result diagrams: 07/27/22 16:56 07/27/22 16:56 Lab Results 07/27/22 07/27/22 07/27/22 Range/Units 16:56 16:56 16:56 WBC 11.2 H (3.8-10.6) k/uL RBC 4.32 (3.80-5.40) m/uL Hgb 12.3 (11.4-16.0) gm/dL Hct 37.0 (34.0-46.0) % MCV 85.8 (80.0-100.0) fL MCH 28.6 (25.0-35.0) pg MCHC 33.3 (31.0-37.0) g/dL RDW 15.1 (11.5-15.5) % Plt Count 120 L (150-450) k/uL MPV 11.9 Neutrophils % (Manual) 62 % Lymphocytes % (Manual) 25 % Monocytes % (Manual) 12 % Eosinophils % (Manual) 1 % Neutrophils # (Manual) 6.94 (1.3-7.7) k/uL Lymphocytes # (Manual) 2.80 (1.0-4.8) k/uL Monocytes # (Manual) 1.34 H (0-1.0) k/uL Eosinophils # (Manual) 0.11 (0-0.7) k/uL Nucleated RBCs 0 (0-0) /100 WBC Manual Slide Review Performed RBC Morphology Normal Sodium 136 L (137-145) mmol/L Potassium 3.2 L (3.5-5.1) mmol/L Chloride 98 (98-107) mmol/L Carbon Dioxide 30 (22-30) mmol/L Anion Gap 8 mmol/L BUN 13 (7-17) mg/dL Creatinine 0.44 L (0.52-1.04) mg/dL Est GFR (CKD-EPI)AfAm >90 (>60 ml/min/1.73 sqM) Est GFR (CKD-EPI)NonAf >90 (>60 ml/min/1.73 sqM) Glucose 295 H (74-99) mg/dL Calcium 8.1 L (8.4-10.2) mg/dL Total Bilirubin 0.6 (0.2-1.3) mg/dL AST 18 (14-36) U/L ALT 20 (4-34) U/L Alkaline Phosphatase 80 (38-126) U/L Total Protein 6.3 (6.3-8.2) g/dL Albumin 3.6 (3.5-5.0) g/dL Lipase 359 H (23-300) U/L Urine Color Light Yellow Urine Appearance Clear (Clear) Urine pH 7.0 (5.0-8.0) Ur Specific [place] 1.009 (1.001-1.035) Urine Protein Negative (Negative) Urine Glucose (UA) Negative (Negative) Urine Ketones Negative (Negative) Urine Blood Negative (Negative) Urine Nitrite Negative (Negative) Urine Bilirubin Negative (Negative) Urine Urobilinogen <2.0 (<2.0) mg/dL Ur Leukocyte Esterase Negative (Negative) Disposition Clinical Impression: Vomiting Disposition: HOME SELF-CARE Condition: Stable Instructions (If sedation given, give patient instructions): Acute Nausea and Vomiting (ED) Additional Instructions: Please return to the Emergency Department if symptoms worsen or any other concerns. Is patient prescribed a controlled substance at d/c from ED?: No Referrals: Steve Barron MD [Primary Care Provider] - 1-2 days Time of Disposition: 20:01
--- NOTE | 2022-07-27 17:06 | XR ---
EXAMINATION TYPE: XR KUB DATE OF EXAM: 07/27/2022 COMPARISON: NONE HISTORY: Pain TECHNIQUE: Single supine KUB image of the abdomen is obtained FINDINGS: Small bowel demonstrates no evidence for dilatation or air fluid levels. Gas and fecal material is seen in non-distended colon. No convincing evidence for pneumoperitoneum. Postoperative changes of the cholecystectomy. No unusual calcifications. The lung bases are clear. The osseous structures are intact. IMPRESSION: 1. Overall nonobstructive bowel gas pattern.
[2022-07-27 17:11] LABS: HGB 12.3 gm/dL (11.4-16.0); MCH 28.6 pg (25.0-35.0); MCHC 33.3 g/dL (31.0-37.0); MCV 85.8 fL (80.0-100.0); Mean Platelet Volume 11.9; Platelet Count 120 k/uL (150-450); RBC 4.32 m/uL (3.80-5.40); RDW 15.1 % (11.5-15.5); WBC 11.2 k/uL (3.8-10.6)
[2022-07-27 17:31] LABS: ALT 20 U/L (4-34); AST 18 U/L (14-36); African American GFR (CKD) >90 (>60 ml/min/1.73 sqM); Albumin 3.6 g/dL (3.5-5.0); Alkaline Phosphatase 80 U/L (38-126); Anion Gap 8 mmol/L; Blood Urea Nitrogen 13 mg/dL (7-17); Calcium 8.1 mg/dL (8.4-10.2); Carbon Dioxide 30 mmol/L (22-30); Chloride 98 mmol/L (98-107); Glucose 295 mg/dL (74-99); Lipase 359 U/L (23-300); Non-African American GFR(CKD) >90 (>60 ml/min/1.73 sqM); Potassium 3.2 mmol/L (3.5-5.1); Sodium 136 mmol/L (137-145); Total Bilirubin 0.6 mg/dL (0.2-1.3); Total Protein 6.3 g/dL (6.3-8.2)
[2022-07-27 17:32] LABS: Appearance,Urine Clear (Clear); Bilirubin,Urine Negative (Negative); Blood,Urine Negative (Negative); Color,Urine Light Yellow; Glucose,Urine (UA) Negative (Negative); Ketones,Urine Negative (Negative); Leukocyte Esterase,Urine Negative (Negative); Nitrite,Urine Negative (Negative); Protein,Urine Negative (Negative); Specific Gravity,Urine 1.009 (1.001-1.035); Urobilinogen,Urine <2.0 mg/dL (<2.0)
[2022-07-27 18:14] LABS: Eosinophils # (M) 0.11 k/uL (0-0.7); Monocytes # (M) 1.34 k/uL (0-1.0); Neutrophils # (M) 6.94 k/uL (1.3-7.7); Neutrophils % (M) 62 %; Nucleated Red Blood Cells 0 /100 WBC (0-0); RBC Morphology Normal; Total Cells Counted 100
--- NOTE | 2022-07-27 18:35 | CT ---
EXAMINATION TYPE: CT abdomen pelvis w con DATE OF EXAM: 07/27/2022 COMPARISON: 07/03/2022 HISTORY: abdominal pain, vomiting CT DLP: 681.8 mGycm CONTRAST: CT scan of the abdomen and pelvis is performed without Oral Contrast and with IV Contrast, patient in jected with 100 mL of Isovue 300. FINDINGS: LUNG BASES-: No visible nodule. No infiltrate. Large pleural effusions are redemonstrated with compr essive basilar atelectasis. LIVER/GB: The gallbladder is surgically absent. No space occupying hepatic lesion. Biliary tree is of normal caliber. PANCREAS: No inflammation. No distinct mass. SPLEEN: No splenic enlargement. No lesion seen. ADRENALS: No nodule. No thickening. KIDNEYS/BLADDER: Stable right-sided hydronephrosis of uncertain etiology. No nephrolithiasis. No dis tinct renal mass. Urinary bladder grossly unremarkable. BOWEL: Nonvisualization of the appendix. Small bowel wall thickening may reflect nonspecific enteriti s. No free air or abscess. GENITAL ORGANS: No gross abnormality. LYMPH NODES: Retroperitoneal and mesenteric adenopathy remains unchanged. AORTA: No significant abnor mality. OSSEOUS STRUCTURES: Diffuse osteoblastic metastatic disease. OTHER: Subcutaneous edema compatible with anasarca. Mild ascites within the abdomen and pelvis unchan ged from prior study. IMPRESSION: 1. Large bilateral pleural effusions essentially unchanged. Mild abdominal ascites. 2. Diffuse osteoblastic metastatic disease. 3. Stable right-sided hydronephrosis of uncertain etiology. 4. Small bowel wall thickening may reflect enteritis. 5. Changes of anasarca.
[2022-07-27 19:01] VITALS: RESP 18
[2022-07-27] MEDS ORDERED: ONDANSETRON 4 MG ODT STARTER PACK 2 TAB BTL PO STA (20:01)
[2022-07-27 20:40] VITALS: BP 121/84; PULSE 84
== END 2022-07-27 20:40 | disposition home or self-care (01) ==
LOC: EC 16:08
DX: R11.10 Vomiting, unspecified (principal); J90 Pleural effusion, not elsewhere classified; R18.8 Other ascites; C79.51 Secondary malignant neoplasm of bone; E11.9 Type 2 diabetes mellitus without complications; E78.5 Hyperlipidemia, unspecified; I10 Essential (primary) hypertension; Z87.891 Personal history of nicotine dependence; Z79.4 Long term (current) use of insulin; Z79.899 Other long term (current) drug therapy
CPT/HCPCS: 36415; 80053; 83690; 85025; 81003; 74018; 74177; 99285; Q9967

== ENCOUNTER 2022-09-10 17:14 | Inpatient (IN) | payer MEDICARE, OTHER ==
[2022-09-10 17:26] LABS: ABG Base Excess -0.7 mmol/L; ABG HCO3 26 mmol/L (21-25); ABG Oxygen Saturation 99.3 % (94-97); ABG PCO2 59 mmHg (35-45); ABG PH 7.26 (7.35-7.45); ABG PO2 180 mmHg (83-108); ABG TCO2 28 mmol/L (19-24); Allen Test Performed? Yes
[2022-09-10 17:30] LABS: Glucose,Whole Blood 494 mg/dL (70-110)
--- NOTE | 2022-09-10 17:43 | XR ---
EXAMINATION TYPE: XR chest 1V DATE OF EXAM: 09/10/2022 5:33 PM COMPARISON: Chest radiographs from 07/04/2022 TECHNIQUE: XR chest 1V Frontal view of the chest. CLINICAL INDICATION:Female, 76 years old with history of sob; FINDINGS: Lungs/Pleura: No evidence of focal consolidation or pneumothorax. Blunting of the costophrenic angles is present. Pulmonary vascularity: Unremarkable. Heart/mediastinum: Cardiomediastinal silhouette is enlarged and stable. Musculoskeletal: No acute osseous pathology. IMPRESSION: Bilateral pleural effusions with pulmonary vascular congestion correlate for congestive heart failure .
[2022-09-10 17:57] LABS: INR 1.3 (<1.2); Partial Thromboplastin Time 23.8 sec (22.0-30.0); Prothrombin Time 13.4 sec (9.0-12.0)
[2022-09-10 18:06] LABS: ALT 16 U/L (4-34); AST 22 U/L (14-36); African American GFR (CKD) >90 (>60 ml/min/1.73 sqM); Albumin 3.4 g/dL (3.5-5.0); Alkaline Phosphatase 109 U/L (38-126); Anion Gap 15 mmol/L; Blood Urea Nitrogen 15 mg/dL (7-17); Calcium 7.4 mg/dL (8.4-10.2); Carbon Dioxide 22 mmol/L (22-30); Chloride 99 mmol/L (98-107); Non-African American GFR(CKD) 89 (>60 ml/min/1.73 sqM); Potassium 3.4 mmol/L (3.5-5.1); Sodium 136 mmol/L (137-145); Total Bilirubin 0.5 mg/dL (0.2-1.3); Total Protein 5.9 g/dL (6.3-8.2)
[2022-09-10 18:09] LABS: HCT 37.8 % (34.0-46.0); HGB 11.9 gm/dL (11.4-16.0); Hypochromasia Slight; MCHC 31.5 g/dL (31.0-37.0); MCV 88.9 fL (80.0-100.0); Mean Platelet Volume 14.1; Platelet Count 120 k/uL (150-450); RBC 4.25 m/uL (3.80-5.40); RDW 15.4 % (11.5-15.5); WBC 21.6 k/uL (3.8-10.6)
[2022-09-10 18:20] LABS: Glucose 518 mg/dL (74-99)
[2022-09-10 18:36] LABS: Eosinophils # (M) 0.22 k/uL (0-0.7); Lymphocytes # (M) 6.05 k/uL (1.0-4.8); Monocytes # (M) 2.81 k/uL (0-1.0); Neutrophils # (M) 12.53 k/uL (1.3-7.7); Neutrophils % (M) 58 %; Nucleated Red Blood Cells 0 /100 WBC (0-0); Total Cells Counted 100
--- NOTE | 2022-09-10 18:50 | CT ---
EXAMINATION TYPE: CT chest angio for PE CT DLP: 232.4 mGycm, Automated exposure control for dose reduction was used. DATE OF EXAM: 09/10/2022 6:37 PM COMPARISON: Chest radiograph from same day. Multiple CTs of the chest with most recent on 07/03/2022 CLINICAL INDICATION:Female, 76 years old with history of shortness of breath; dyspnea TECHNIQUE/CONTRAST: CTA scan of the thorax is performed with IV Contrast, patient injected with 80ml mL of Isovue 370, pu lmonary embolism protocol. MIP images are created and reviewed these are created on a separate works tation.. FINDINGS: Pulmonary Artery: There is no evidence for a filling defect within the pulmonary vasculature to sugge st acute pulmonary embolism. The pulmonary artery is of normal size. Lungs/Pleura: No evidence of focal consolidation, pleural effusion or pneumothorax. Large bilateral p leural effusions with associated atelectasis changes in the lungs. There is some pulmonary vascular c ongestion suggested. Airway: Large airways are patent. Heart: Heart is within normal limits for size. Vasculature: No evidence of aortic aneurysm. Mediastinum: No gross evidence of adenopathy. Musculoskeletal: No acute osseous abnormalities Soft Tissues: Unremarkable. Lower neck: No significant findings. Upper Abdomen: Cholecystectomy clips are present. IMPRESSION: 1. No evidence of pulmonary embolism. 2. Large bilateral pleural effusions with associated atelectasis.
--- NOTE | 2022-09-10 18:54 | CT ---
EXAMINATION TYPE: CT brain cspine wo con CT DLP: 1289 mGycm, Automated exposure control for dose reduction was used. DATE OF EXAM: 09/10/2022 6:37 PM COMPARISON: None CLINICAL INDICATION:Female, 76 years old with history of fall, head injury; fall, weakness TECHNIQUE: Brain: Multiple axial CT images of the brain were obtained without IV contrast. Cspine: Axial CT images from the skull base to the inferior aspect of T2 we obtained without intraven ous contrast. Coronal and sagittal reformatted images were also reviewed. FINDINGS: Brain: Extra-axial spaces: No abnormal extra-axial fluid collections. Ventricular system: Dilatation in proportion to cerebral atrophy. Cerebral parenchyma: Cerebral atrophy. No acute intraparenchymal hemorrhage or mass effect. The pederson -white junction is well differentiated. Scattered hypoattenuating areas are seen within the white mat ter. Cerebellum: Unremarkable. Mass effect: No evidence of midline shift. Intracranial vasculature: Atherosclerotic calcifications of the intracranial vessels. Soft tissues: Scalp hematoma along the right lateral aspect measuring up to 2.4 x 0.8 cm. Calvarium/osseous structures: No depressed skull fracture. Paranasal sinuses and mastoid air cells: Clear. Visualized orbits: Bilateral aphakia Cervical spine: Fracture: None. Osseous structures: Multilevel degenerative disc disease changes with endplate spurring and disc oste ophyte complex's. Vertebral alignment: Within normal limits. Spinal canal/Neural Foramina: Disc osteophyte complexes at C5-6 and C6-C7 with at least mild spinal c anal stenosis. No evidence for significant neural foraminal stenosis. Neck soft tissues: Prevertebral soft tissues are within normal limits. Other: The airway is patent. Large pleural effusions again redemonstrated. IMPRESSION: 1. No acute intracranial process. 2. Nonspecific white matter changes, likely secondary to chronic small vessel ischemic disease. 3. Small right scalp hematoma. 4. No evidence of cervical spine fracture. 5. Moderate multilevel degenerative disc disease. 6. Large bilateral pleural effusions.
[2022-09-10] MEDS ORDERED: INSULIN ASPART (NovoLOG) 100 UNIT/ML VIAL SQ ONE (19:36)
[2022-09-10] MEDS ORDERED: NALOXONE 0.4 MG/ML 1 ML VIAL IV PRN (19:39)
--- NOTE | 2022-09-10 19:39 | ED ---
Altered Mental Status HPI - General Chief Complaint: Altered Mental Status Stated Complaint: SOB Time Seen by Provider: 09/10/22 17:15 Source: EMS Mode of arrival: EMS Limitations: altered mental status - History of Present Illness Initial Comments: 76-year-old female with past medical history of diabetes, hypertension, mastocytosis who presents to the emergency department after reported respiratory arrest. and EMS provided the history. states that the patient had gone to her primary care office for a routine checkup. He was changing the patient's frequency of oxygen. She normally wears at night however was going to transition to wearing it through the day. She was getting out of a car when she told her to go into the house. He then heard her yell out help. When he turned around she had fallen to the ground and hit her head. He started to do CPR on her. EMS was called. They arrived to find the patient with agonal respirations. She is breathing approximately 2/m and was not answering questions. She required bagging on the way in. Medication lists demonstrates the patient takes Bumex. They report a "blood disorder". Denied cardiac or pulmonary issues. Patient is arousable upon evaluation. Denies chest pain. No abdominal pain. No cough. Just admitting to shortness of breath - Related Data Home Medications Medication Instructions Recorded Confirmed RX: Insulin Glargine,Hum.rec.anlog 15 units SQ DAILY 07/03/22 09/10/22 [Lantus Solostar Pen] RX: Potassium Chloride ER [K-Dur 10 meq PO DAILY 07/03/22 09/10/22 10] RX: Simvastatin 40 mg PO HS 07/03/22 09/10/22 RX: Triamcinolone 0.025% Cream 1 applic TOPICAL DAILY 07/04/22 09/10/22 [Kenalog 0.025% Cream] Bumetanide [Bumex] 1 mg PO DAILY 09/10/22 09/10/22 Ferrous Sulfate [Feosol] 325 mg PO DAILY 09/10/22 09/10/22 Fluticasone/Umeclidin/Vilanter 1 puff INHALATION RT-DAILY 09/10/22 09/10/22 [Trelegy Ellipta 200-62.5-25] Loratadine [Claritin] 10 mg PO DAILY 09/10/22 09/10/22 Montelukast [Singulair] 10 mg PO DAILY 09/10/22 09/10/22 Ondansetron [Zofran] 4 mg PO Q6H PRN 09/10/22 09/10/22 RX: Omeprazole 40 mg PO DAILY 09/10/22 09/10/22 Previous Rx's Medication Instructions Recorded RX: Acetaminophen Tab [Tylenol] 650 mg PO Q6HR PRN tab 07/10/22 RX: Ibuprofen [Advil] 200 mg PO HS PRN tab 07/10/22 RX: Levothyroxine Sodium 125 mcg PO DAILY@0630 90 Days #90 07/10/22 [Synthroid] tab RX: amLODIPine [Norvasc] 5 mg PO DAILY 90 Days #90 tab 07/10/22 RX: diphenhydrAMINE [Benadryl] 25 mg PO HS PRN cap 07/10/22 Allergies Allergy/AdvReac Type Severity Reaction Status Date / Time No Known Allergies Allergy Verified 09/10/22 18:04 Review of Systems ROS Statement: Those systems with pertinent positive or pertinent negative responses have been documented in the HPI. ROS Other: All systems not noted in ROS Statement are negative. Past Medical History Past Medical History: Diabetes Mellitus, Hyperlipidemia, Hypertension, Thyroid Disorder Additional Past Medical History / Comment(s): left leg swells at end of day every day for about a year History of Any Multi-Drug Resistant Organisms: None Reported Past Surgical History: Cholecystectomy Additional Past Surgical History / Comment(s): cholecystectomy, cataract surgery Past Anesthesia/Blood Transfusion Reactions: No Reported Reaction Past Psychological History: No Psychological Hx Reported Smoking Status: Former smoker Past Alcohol Use History: Occasional Past Drug Use History: None Reported - Past Family History Father Family Medical History: Cancer, Prostate Disorder Additional Family Medical History / Comment(s): prostate CA Mother Additional Family Medical History / Comment(s): parkinsons General Exam Limitations: no limitations General appearance: in distress Head exam: Present: other (Occipital hematoma with overlying abrasion) Eye exam: Present: normal appearance, PERRL, EOMI. Absent: scleral icterus, conjunctival injection, periorbital swelling ENT exam: Present: mucous membranes dry Respiratory exam: Present: rales, accessory muscle use, decreased breath sounds Cardiovascular Exam: Present: regular rate, normal rhythm, normal heart sounds. Absent: systolic murmur, diastolic murmur, rubs, gallop, clicks Neurological exam: Present: alert, oriented X3, CN II-XII intact Psychiatric exam: Present: normal affect, normal mood Skin exam: Present: warm, dry, intact, normal color. Absent: rash Course Vital Signs 09/10/22 09/10/22 09/10/22 17:17 17:35 19:19 Pulse Rate 97 84 Respiratory 30 H 14 22 Rate Blood Pressure 135/54 121/53 O2 Sat by Pulse 95 100 Oximetry Fraction of Inspired Oxygen (FIO2) 09/10/22 09/10/22 09/10/22 19:28 19:30 19:40 Pulse Rate 85 84 82 Respiratory 16 17 16 Rate Blood Pressure 121/53 119/51 O2 Sat by Pulse 100 100 99 Oximetry Fraction of Inspired Oxygen (FIO2) 09/10/22 09/10/22 09/10/22 19:42 19:50 20:00 Pulse Rate 80 80 Respiratory 18 16 Rate Blood Pressure 112/47 108/51 O2 Sat by Pulse 98 98 Oximetry Fraction of 60 Inspired Oxygen (FIO2) 09/10/22 09/10/22 09/10/22 20:10 20:20 20:30 Pulse Rate 79 80 78 Respiratory 16 20 16 Rate Blood Pressure 115/49 112/49 119/60 O2 Sat by Pulse 97 97 Oximetry Fraction of Inspired Oxygen (FIO2) 09/10/22 09/10/22 09/10/22 20:40 20:50 21:00 Pulse Rate 80 82 77 Respiratory 18 18 16 Rate Blood Pressure 109/50 114/54 107/57 O2 Sat by Pulse 99 99 Oximetry Fraction of Inspired Oxygen (FIO2) 09/10/22 09/10/22 09/10/22 21:10 21:20 21:30 Pulse Rate 74 75 82 Respiratory 17 16 20 Rate Blood Pressure 109/48 111/52 111/55 O2 Sat by Pulse 97 98 96 Oximetry Fraction of Inspired Oxygen (FIO2) 09/10/22 09/10/22 09/10/22 21:40 21:50 22:00 Pulse Rate 78 82 81 Respiratory 20 18 17 Rate Blood Pressure 130/64 121/58 115/62 O2 Sat by Pulse 98 96 Oximetry Fraction of Inspired Oxygen (FIO2) 09/10/22 09/10/22 09/10/22 22:10 22:20 22:30 Pulse Rate 81 81 80 Respiratory 20 Rate Blood Pressure 115/64 131/64 120/62 O2 Sat by Pulse 95 96 95 Oximetry Fraction of Inspired Oxygen (FIO2) 09/10/22 09/10/22 09/10/22 22:40 22:50 23:00 Pulse Rate 81 78 74 Respiratory 17 Rate Blood Pressure 123/57 122/65 O2 Sat by Pulse 80 L 96 99 Oximetry Fraction of Inspired Oxygen (FIO2) 09/10/22 09/10/22 09/10/22 23:10 23:20 23:30 Pulse Rate 68 75 79 Respiratory 19 18 17 Rate Blood Pressure 112/52 112/52 118/66 O2 Sat by Pulse 98 96 95 Oximetry Fraction of Inspired Oxygen (FIO2) 09/10/22 23:40 Pulse Rate 77 Respiratory 14 Rate Blood Pressure O2 Sat by Pulse 95 Oximetry Fraction of Inspired Oxygen (FIO2) - Reevaluation(s) Reevaluation #1: Dr. Mccain accepts patient into ICU 09/10/22 1850 Procedures - [place] Protocol (Time Out) Nurse: Shy Carpio - ABG Interpretation Ph: 7.25 PCO2: 59 PO2: 180 Bicarbonate: 26 Interpretation: metabolic acidosis Medical Decision Making - Medical Decision Making Was pt. sent in by a medical professional or institution (, PA, PARLIAMENTARY COUNSEL, urgent care, hospital, or senior care...) When possible be specific @ -No Did you speak to anyone other than the patient for history (EMS, parent, family, police, friend...)? What history was obtained from this source @ -I spoke with EMS and the patient's Did you review nursing and triage notes (agree or disagree)? Why? @ -I reviewed and agree with nursing and triage notes Were old charts reviewed (outside hosp., previous admission, EMS record, old EKG, old radiological studies, urgent care reports/EKG's, senior care records)? Report findings @ -Old charts were reviewed. Patient recently hospitalized and had thoracentesis done. Cytology is reviewed and demonstrates mastocytosis Differential Diagnosis (chest pain, altered mental status, abdominal pain women, abdominal pain men, vaginal bleeding, weakness, fever, dyspnea, syncope, headache, dizziness, GI bleed, back pain, seizure, CVA, palpatations, mental health, musculoskeletal)? @ -Differential Dyspnea: Coronary syndrome, arrhythmia, tamponade, asthma, COPD, pulmonary embolism, pneumonia, pneumothorax, pulmonary effusion, anaphylaxis, diabetic ketoacidosis, flailed chest, pulmonary contusion, diaphragmatic rupture, anemia, neuromuscular, this is not meant to be an all-inclusive list. EKG interpreted by me (3pts min.). @ -EKG interpreted by me as a sinus rhythm with a rate of 97. KS interval 140. QRS 81. QTC of 417. Significant baseline artifact. ST depression [address]. [address] segment elevation X-rays interpreted by me (1pt min.). @ -Chest x-ray was reviewed by myself and demonstrates pleural effusion CT interpreted by me (1pt min.). @ -CT was interpreted by myself and demonstrates significant bilateral pleural effusions U/S interpreted by me (1pt. min.). @ -None done What testing was considered but not performed or refused? (CT, X-rays, U/S, labs)? Why? @ -None What meds were considered but not given or refused? Why? @ -None Did you discuss the management of the patient with other professionals (professionals i.e. , PA, PARLIAMENTARY COUNSEL, lab, RT, psych nurse, social media senior associate, syrup blender, teacher, fire prevention officer, manager rn case)? Give summary @ -I spoke with Dr. Mccain in regards to the patient due to massive pleural effusions Was smoking cessation discussed for >3mins.? @ -No Was critical care preformed (if so, how long)? @ -35 minutes Were there social determinants of health that impacted care today? How? (Homelessness, low income, unemployed, alcoholism, drug addiction, transportation, low edu. Level, literacy, decrease access to med. care, usp, rehab)? @ -No Was there de-escalation of care discussed even if they declined (Discuss DNR or withdrawal of care, Hospice)? DNR status @ -No What co-morbidities impacted this encounter? (DM, HTN, Smoking, COPD, CAD, Cancer, CVA, ARF, Chemo, Hep., AIDS, mental health diagnosis, sleep apnea, morbid obesity)? @ -Mastocytosis Was patient admitted / discharged? Hospital course, mention meds given and ro ely [place], prescriptions, significant lab abnormalities, going to OR and other pertinent info. @ -Upon arrival patient was placed into trauma 2. EMS report that the patient was breathing 2 times per minute and required bagging on the way in. Intubation was prepared however the patient does have rapid improvement in her mentation. She is able to answer questions appropriately. She is placed on a nonrebreather. IV is established. Laboratory studies are conducted. Chest x- ray was performed. Patient has go for CT which demonstrates massive bilateral pleural effusions. No acute intracranial process. Patient adequately maintain oxygen saturation saturations on 4 L. Called and spoke with Dr. Mccain. Patient will go to the ICU. Spoke with Dr. Warner for admission Undiagnosed new problem with uncertain prognosis? @ -Yes Drug Therapy requiring intensive monitoring for toxicity (Heparin, Nitro, Insulin, Cardizem)? @ -No Were any procedures done? @ -No Diagnosis/symptom? @ -Acute respiratory failure, acute bilateral pleural effusions, hyperglycemia Acute, or Chronic, or Acute on Chronic? @ -Acute Uncomplicated (without systemic symptoms) or Complicated (systemic symptoms)? @ -Complicated Side effects of treatment? @ -No Exacerbation, Progression, or Severe Exacerbation? @ -No Poses a threat to life or bodily function? How? (Chest pain, [place], [place], pneumonia, PE, COPD, DKA, ARF, appy, cholecystitis, CVA, Diverticulitis, Homicidal, Suicidal, threat to staff... and all critical care pts) @ -Yes patient arrives in respiratory distress with significant threat to life - Lab Data Result diagrams: 09/10/22 17:35 09/10/22 17:35 Lab Results 09/10/22 09/10/22 09/10/22 Range/Units 17:23 17:28 17:35 WBC 21.6 H (3.8-10.6) k/uL RBC 4.25 (3.80-5.40) m/uL Hgb 11.9 (11.4-16.0) gm/dL Hct 37.8 (34.0-46.0) % MCV 88.9 (80.0-100.0) fL MCH 28.0 (25.0-35.0) pg MCHC 31.5 (31.0-37.0) g/dL RDW 15.4 (11.5-15.5) % Plt Count 120 L (150-450) k/uL MPV 14.1 Neutrophils % (Manual) 58 % Lymphocytes % (Manual) 28 % Monocytes % (Manual) 13 % Eosinophils % (Manual) 1 % Neutrophils # (Manual) 12.53 H (1.3-7.7) k/uL Lymphocytes # (Manual) 6.05 H (1.0-4.8) k/uL Monocytes # (Manual) 2.81 H (0-1.0) k/uL Eosinophils # (Manual) 0.22 (0-0.7) k/uL Nucleated RBCs 0 (0-0) /100 WBC Manual Slide Review Performed Hypochromasia Slight PT (9.0-12.0) sec INR (<1.2) APTT (22.0-30.0) sec Sample Site lbrac ABG pH 7.26 L (7.35-7.45) ABG pCO2 59 H (35-45) mmHg ABG pO2 180 H (83-108) mmHg ABG HCO3 26 H (21-25) mmol/L ABG Total CO2 28 H (19-24) mmol/L ABG O2 Saturation 99.3 H (94-97) % ABG Base Excess -0.7 mmol/L Brandon Test Yes FiO2 100 % Sodium (137-145) mmol/L Potassium (3.5-5.1) mmol/L Chloride (98-107) mmol/L Carbon Dioxide (22-30) mmol/L Anion Gap mmol/L BUN (7-17) mg/dL Creatinine (0.52-1.04) mg/dL Est GFR (CKD-EPI)AfAm (>60 ml/min/1.73 sqM) Est GFR (CKD-EPI)NonAf (>60 ml/min/1.73 sqM) Glucose (74-99) mg/dL POC Glucose (mg/dL) 494 H (70-110) mg/dL POC Glu Day Trader ID Steve Gramajo Ac Sepsis Rflx Plasma Lactic Acid Yoni (0.7-2.0) mmol/L Calcium (8.4-10.2) mg/dL Total Bilirubin (0.2-1.3) mg/dL AST (14-36) U/L ALT (4-34) U/L Alkaline Phosphatase (38-126) U/L Troponin I (0.000-0.034) ng/mL NT-Pro-B Natriuret Pep pg/mL Total Protein (6.3-8.2) g/dL Albumin (3.5-5.0) g/dL 09/10/22 09/10/22 09/10/22 Range/Units 17:35 17:35 17:35 WBC (3.8-10.6) k/uL RBC (3.80-5.40) m/uL Hgb (11.4-16.0) gm/dL Hct (34.0-46.0) % MCV (80.0-100.0) fL MCH (25.0-35.0) pg MCHC (31.0-37.0) g/dL RDW (11.5-15.5) % Plt Count (150-450) k/uL MPV Neutrophils % (Manual) % Lymphocytes % (Manual) % Monocytes % (Manual) % Eosinophils % (Manual) % Neutrophils # (Manual) (1.3-7.7) k/uL Lymphocytes # (Manual) (1.0-4.8) k/uL Monocytes # (Manual) (0-1.0) k/uL Eosinophils # (Manual) (0-0.7) k/uL Nucleated RBCs (0-0) /100 WBC Manual Slide Review Hypochromasia PT 13.4 H (9.0-12.0) sec INR 1.3 H (<1.2) APTT 23.8 (22.0-30.0) sec Sample Site ABG pH (7.35-7.45) ABG pCO2 (35-45) mmHg ABG pO2 (83-108) mmHg ABG HCO3 (21-25) mmol/L ABG Total CO2 (19-24) mmol/L ABG O2 Saturation (94-97) % ABG Base Excess mmol/L Brandon Test FiO2 % Sodium 136 L (137-145) mmol/L Potassium 3.4 L (3.5-5.1) mmol/L Chloride 99 (98-107) mmol/L Carbon Dioxide 22 (22-30) mmol/L Anion Gap 15 mmol/L BUN 15 (7-17) mg/dL Creatinine 0.58 (0.52-1.04) mg/dL Est GFR (CKD-EPI)AfAm >90 (>60 ml/min/1.73 sqM) Est GFR (CKD-EPI)NonAf 89 (>60 ml/min/1.73 sqM) Glucose 518 H* (74-99) mg/dL POC Glucose (mg/dL) (70-110) mg/dL POC Glu Day Trader ID Lactic Ac Sepsis Rflx Plasma Lactic Acid Yoni (0.7-2.0) mmol/L Calcium 7.4 L (8.4-10.2) mg/dL Total Bilirubin 0.5 (0.2-1.3) mg/dL AST 22 (14-36) U/L ALT 16 (4-34) U/L Alkaline Phosphatase 109 (38-126) U/L Troponin I <0.012 (0.000-0.034) ng/mL NT-Pro-B Natriuret Pep pg/mL Total Protein 5.9 L (6.3-8.2) g/dL Albumin 3.4 L (3.5-5.0) g/dL 09/10/22 09/10/22 09/10/22 Range/Units 17:35 17:35 18:13 WBC (3.8-10.6) k/uL RBC (3.80-5.40) m/uL Hgb (11.4-16.0) gm/dL Hct (34.0-46.0) % MCV (80.0-100.0) fL MCH (25.0-35.0) pg MCHC (31.0-37.0) g/dL RDW (11.5-15.5) % Plt Count (150-450) k/uL MPV Neutrophils % (Manual) % Lymphocytes % (Manual) % Monocytes % (Manual) % Eosinophils % (Manual) % Neutrophils # (Manual) (1.3-7.7) k/uL Lymphocytes # (Manual) (1.0-4.8) k/uL Monocytes # (Manual) (0-1.0) k/uL Eosinophils # (Manual) (0-0.7) k/uL Nucleated RBCs (0-0) /100 WBC Manual Slide Review Hypochromasia PT (9.0-12.0) sec INR (<1.2) APTT (22.0-30.0) sec Sample Site ABG pH (7.35-7.45) ABG pCO2 (35-45) mmHg ABG pO2 (83-108) mmHg ABG HCO3 (21-25) mmol/L ABG Total CO2 (19-24) mmol/L ABG O2 Saturation (94-97) % ABG Base Excess mmol/L Brandon Test FiO2 % Sodium (137-145) mmol/L Potassium (3.5-5.1) mmol/L Chloride (98-107) mmol/L Carbon Dioxide (22-30) mmol/L Anion Gap mmol/L BUN (7-17) mg/dL Creatinine (0.52-1.04) mg/dL Est GFR (CKD-EPI)AfAm (>60 ml/min/1.73 sqM) Est GFR (CKD-EPI)NonAf (>60 ml/min/1.73 sqM) Glucose (74-99) mg/dL POC Glucose (mg/dL) (70-110) mg/dL POC Glu Day Trader ID Lactic Ac Sepsis Rflx Y Plasma Lactic Acid Oyni 4.8 H* (0.7-2.0) mmol/L Calcium (8.4-10.2) mg/dL Total Bilirubin (0.2-1.3) mg/dL AST (14-36) U/L ALT (4-34) U/L Alkaline Phosphatase (38-126) U/L Troponin I (0.000-0.034) ng/mL NT-Pro-B Natriuret Pep 459 pg/mL Total Protein (6.3-8.2) g/dL Albumin (3.5-5.0) g/dL Critical Care Time Critical Care Time: Yes Critical Care Time: 35 mins Disposition Clinical Impression: Respiratory failure, Bilateral pleural effusion, Mastocytosis, Leukocytosis, Lactic acidosis Disposition: ADMITTED IP TO THIS [facility] Condition: Serious Is patient prescribed a controlled substance at d/c from ED?: No Time of Disposition: 19:33 Decision to Admit Reason: Admit from EC Decision Date: 09/10/22 Decision Time: 19:33
[2022-09-10] MEDS ORDERED: BUMETANIDE 0.25 MG/ML 4 ML VIAL IVP STA (19:41)
[2022-09-10 19:58] LABS: Glucose,Whole Blood 515 mg/dL (70-110)
[2022-09-10 21:20] LABS: Glucose,Whole Blood 483 mg/dL (70-110)
[2022-09-10 22:22] LABS: Glucose,Whole Blood 405 mg/dL (70-110)
[2022-09-10 23:44] LABS: Glucose,Whole Blood 266 mg/dL (70-110)
[2022-09-11 00:03] LABS: Glucose,Whole Blood 291 mg/dL (70-110)
[2022-09-11] MEDS ORDERED: DEXTROSE 50% SYRINGE 50 ML IVP PRN ×2 (00:10)
[2022-09-11] MEDS ORDERED: IPRATROPIUM-ALBUTEROL 3 ML NEB INHALATION PRN (00:28)
[2022-09-11] MEDS: BUMETANIDE 0.25 MG/ML 4 ML VIAL IV SCH ×3 (00:32→23:20)
[2022-09-11 01:53] LABS: Glucose,Whole Blood 217 mg/dL (70-110)
[2022-09-11] MEDS: INSULIN ASPART (NovoLOG) 100 UNIT/ML VIAL SQ SCH ×5 (01:56→20:01)
--- NOTE | 2022-09-11 03:26 | P.CNPUL ---
History of Present Illness Consult date: 09/11/22 Requesting physician: Rachell Garcia Reason for consult: other (ICU management; respiratory failure) Chief complaint: Fall and reported respiratory arrest History of present illness: I am seeing this patient in new consultation today 09/11/2022 in the intensive care unit after the patient experienced a fall yesterday evening resulting in head trauma and a subsequent respiratory arrest. Patient is a 76-year-old white female with past medical history significant for bilateral pleural effusions, oxygen dependent on 5 L/m nasal cannula, COPD, diabetes mellitus type 2, hypertension, hyperlipidemia, hypothyroidism, hydroureternephrosis, and remote history of smoking. Her primary care provider is Dr. Barron. Patient was seen in the office by Dr. Rodgers, for a hospital follow-up. Patient did have a recent hospitalization back in June and again in July of this year. 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 Patient also had large bilateral pleural effusions at that time. Patient did undergo a thoracentesis of the right chest, which showed an exudative effusion based on protein analysis. No cytologically malignant cells were identified. A follow-up bone scan showed focal areas of uptake within the bilateral humeri, distal right tibia segment, ribs, and thoracic spine suggestive of metastatic disease. Oncology was consulted, and the patient did undergo a bone marrow biopsy showing evidence of monoclonal B cell lymphocytosis, non-CLL type. Significance unknown. She has been following with her oncologist, Dr. Connelly. Yesterday evening, the patient was exiting her car in the garage when she "lost her balance", fell landing backwards, and hit her head. She does not remember much after this event. Her apparently heard her yell out and fall. She was reportedly unresponsive, and the did perform CPR. When EMS arrived, the patient was reportedly not effectively breathing, and had to be bagged. She reportedly never lost a pulse. The patient was at her primary care physician office earlier that day, and there were apparently adjustments to her oxygen. She denies any history of seizures, vertigo. She denies any chest pain, heart palpitations, lightheadedness, or prior syncopal episodes. On arrival to the emergency room, the patient was placed on BiPAP. ABGs at that time showed a PaO2 of 180, pCO2 of 59, pH of 7.26. On my evaluation, she is no longer on the BiPAP. The patient is alert, in no acute distress, on 6 L nasal cannula. Chest x-ray on arrival showed bilateral pleural effusions with mild pulmonary vascular congestion. A follow-up chest CTA showed no evidence of pulmonary embolism and redemonstration of the large bilateral pleural effusions and associated atelectasis. CT of the brain and C-spine without contrast showed no acute intracranial abnormalities or evidence of C-spine fracture. There was a small right scapular hematoma. CBC on arrival shows some leukocytosis with a WBC count of 21.6, hemoglobin 11.9, hematocrit 37.8, platelets 120. BMP on arrival shows a sodium 136, potassium 3.4, chloride 99, serum CO2 22, BUN 15, creatinine 0.58, glucose 518. Lactic acid level was elevated at 3.8. Troponin negative 1. NT proBNP low. Patient's vital signs are stable at the moment. Review of Systems REVIEW OF SYSTEMS: CONSTITUTIONAL: Denies any recent significant weight loss or weight gain. EYES: Denies change in vision. EARS, NOSE, MOUTH, THROAT: Denies headaches, denies sore throat. CARDIOVASCULAR: Denies chest pain, palpitations or syncopal episodes. RESPIRATORY: Denies congestion or hemoptysis. Admits a progressive shortness of breath over the last couple months. GASTROINTESTINAL: Denies change in appetite, abdominal pain, nausea and vomiting, or diarrhea GENITOURINARY: Denies hematuria, denies infections. MUSKULOSKELETAL: Denies pain. Admits lower extremity swelling INTEGUMENTARY: Denies rash, denies eczema. NEUROLOGICAL: Denies recent memory loss, no recent seizure activity. PSYCHIATRIC: Denies anxiety, denies depression. HEMATOLOGIC/LYMPHATIC: Denies anemia, denies enlarged lymph node Past Medical History Past Medical History: Diabetes Mellitus, Hyperlipidemia, Hypertension, Thyroid Disorder Additional Past Medical History / Comment(s): left leg swells at end of day every day for about a year History of Any Multi-Drug Resistant Organisms: None Reported Past Surgical History: Cholecystectomy Additional Past Surgical History / Comment(s): cholecystectomy, cataract surgery Past Anesthesia/Blood Transfusion Reactions: No Reported Reaction Past Psychological History: No Psychological Hx Reported Smoking Status: Former smoker Past Alcohol Use History: Occasional Past Drug Use History: None Reported - Past Family History Father Family Medical History: Cancer, Prostate Disorder Additional Family Medical History / Comment(s): prostate CA Mother Additional Family Medical History / Comment(s): parkinsons Medications and Allergies Home Medications Medication Instructions Recorded Confirmed Type Insulin Glargine,Hum.rec.anlog 15 units SQ DAILY 07/03/22 09/10/22 History [Lantus Solostar Pen] Potassium Chloride ER [K-Dur 10] 10 meq PO DAILY 07/03/22 09/10/22 History Simvastatin 40 mg PO HS 07/03/22 09/10/22 History Triamcinolone 0.025% Cream 1 applic TOPICAL DAILY 07/04/22 09/10/22 History [Kenalog 0.025% Cream] Acetaminophen Tab [Tylenol] 650 mg PO Q6HR PRN tab 07/10/22 09/10/22 Rx Ibuprofen [Advil] 200 mg PO HS PRN tab 07/10/22 09/10/22 Rx Levothyroxine Sodium [Synthroid] 125 mcg PO DAILY@0630 90 Days #90 07/10/22 0 09/10/22 Rx tab amLODIPine [Norvasc] 5 mg PO DAILY 90 Days #90 tab 07/10/22 09/10/22 Rx diphenhydrAMINE [Benadryl] 25 mg PO HS PRN cap 07/10/22 09/10/22 Rx Bumetanide [Bumex] 1 mg PO DAILY 09/10/22 09/10/22 History Ferrous Sulfate [Feosol] 325 mg PO DAILY 09/10/22 09/10/22 History Fluticasone/Umeclidin/Vilanter 1 puff INHALATION RT-DAILY 09/10/22 09/10/22 History [Trelegy Ellipta 200-62.5-25] Loratadine [Claritin] 10 mg PO DAILY 09/10/22 09/10/22 History Montelukast [Singulair] 10 mg PO DAILY 09/10/22 09/10/22 History Omeprazole 40 mg PO DAILY 09/10/22 09/10/22 History Ondansetron [Zofran] 4 mg PO Q6H PRN 09/10/22 09/10/22 History Allergies Allergy/AdvReac Type Severity Reaction Status Date / Time No Known Allergies Allergy Verified 09/10/22 18:04 Physical Exam Vitals: Vital Signs Temp Pulse Resp BP Pulse Ox FiO2 09/11/22 02:00 60 17 117/54 92 L 09/11/22 01:00 73 11 L 120/57 93 L 09/11/22 00:10 97.6 F 80 24 137/58 94 L 09/10/22 23:40 77 14 95 09/10/22 23:30 79 17 118/66 95 09/10/22 23:20 75 18 112/52 96 09/10/22 23:10 68 19 112/52 98 09/10/22 23:00 74 17 99 09/10/22 22:50 78 122/65 96 09/10/22 22:40 81 123/57 80 L 09/10/22 22:30 80 20 120/62 95 09/10/22 22:20 81 131/64 96 09/10/22 22:10 81 115/64 95 09/10/22 22:00 81 17 115/62 96 09/10/22 21:50 82 18 121/58 09/10/22 21:40 78 20 130/64 98 09/10/22 21:30 82 20 111/55 96 09/10/22 21:20 75 16 111/52 98 09/10/22 21:10 74 17 109/48 97 09/10/22 21:00 77 16 107/57 99 09/10/22 20:50 82 18 114/54 09/10/22 20:40 80 18 109/50 99 09/10/22 20:30 78 16 119/60 97 09/10/22 20:20 80 20 112/49 97 09/10/22 20:10 79 16 115/49 09/10/22 20:00 80 16 108/51 98 09/10/22 19:50 80 18 112/47 98 09/10/22 19:42 60 09/10/22 19:40 82 16 119/51 99 09/10/22 19:30 84 17 100 09/10/22 19:28 85 16 121/53 100 09/10/22 19:19 84 22 121/53 100 09/10/22 17:35 14 09/10/22 17:17 97 30 H 135/54 95 Intake and Output 09/10/22 09/10/22 09/11/22 14:59 22:59 06:59 Other: Voiding Method External Catheter # Voids 0 Weight 47.627 kg GENERAL EXAM: Alert, 76-year-old white female, comfortable in no apparent distress. HEAD: Normocephalic and atraumatic EYES: Normal reaction of pupils, equal size. NOSE: Clear with pink turbinates. THROAT: No erythema or exudates. NECK: No masses, no JVD. CHEST: No chest wall deformity. LUNGS: Equal air entry with diminished bibasilar lung sounds. No crackles, wheeze, rhonchi or dullness. On 6 L nasal cannula. No conversational dyspnea or accessory muscle use.. CVS: S1 and S2 normal with no audible murmur, regular rhythm. No extra heart sounds ABDOMEN: No hepatosplenomegaly, active bowel sounds, no guarding or rigidity. SPINE: No scoliosis or deformity SKIN: No rashes CENTRAL NERVOUS SYSTEM: No focal deficits, tone is normal in all 4 extremities. EXTREMITIES: There is bilateral lower extremity 2-3+ pitting edema. No clubbing, or cyanosis. Peripheral pulses are intact. Results - Laboratory Findings CBC and BMP: 09/10/22 17:35 09/10/22 17:35 ABG ABG pH 7.26 (7.35-7.45) L 09/10/22 17:23 ABG pCO2 59 mmHg (35-45) H 09/10/22 17:23 ABG pO2 180 mmHg (83-108) H 09/10/22 17:23 ABG O2 Saturation 99.3 % (94-97) H 09/10/22 17:23 PT/INR, D-dimer PT 13.4 sec (9.0-12.0) H 09/10/22 17:35 INR 1.3 (<1.2) H 09/10/22 17:35 Abnormal lab findings: Abnormal Labs 09/10/22 09/10/22 09/10/22 17:23 17:28 17:35 WBC 21.6 H Plt Count 120 L Neutrophils # (Manual) 12.53 H Lymphocytes # (Manual) 6.05 H Monocytes # (Manual) 2.81 H PT INR ABG pH 7.26 L ABG pCO2 59 H ABG pO2 180 H ABG HCO3 26 H ABG Total CO2 28 H ABG O2 Saturation 99.3 H Sodium Potassium Glucose POC Glucose (mg/dL) 494 H Plasma Lactic Acid Yoni Calcium Total Protein Albumin 09/10/22 09/10/22 09/10/22 17:35 17:35 17:35 WBC Plt Count Neutrophils # (Manual) Lymphocytes # (Manual) Monocytes # (Manual) PT 13.4 H INR 1.3 H ABG pH ABG pCO2 ABG pO2 ABG HCO3 ABG Total CO2 ABG O2 Saturation Sodium 136 L Potassium 3.4 L Glucose 518 H* POC Glucose (mg/dL) Plasma Lactic Acid Yoni 4.8 H* Calcium 7.4 L Total Protein 5.9 L Albumin 3.4 L 09/10/22 09/10/22 09/10/22 19:57 20:22 21:19 WBC Plt Count Neutrophils # (Manual) Lymphocytes # (Manual) Monocytes # (Manual) PT INR ABG pH ABG pCO2 ABG pO2 ABG HCO3 ABG Total CO2 ABG O2 Saturation Sodium Potassium Glucose POC Glucose (mg/dL) 515 H 483 H Plasma Lactic Acid Yoni 2.3 H* Calcium Total Protein Albumin 09/10/22 09/10/22 09/10/22 22:21 23:28 23:42 WBC Plt Count Neutrophils # (Manual) Lymphocytes # (Manual) Monocytes # (Manual) PT INR ABG pH ABG pCO2 ABG pO2 ABG HCO3 ABG Total CO2 ABG O2 Saturation Sodium Potassium Glucose POC Glucose (mg/dL) 405 H 266 H Plasma Lactic Acid Yoni 3.8 H* Calcium Total Protein Albumin 09/11/22 09/11/22 00:02 01:51 WBC Plt Count Neutrophils # (Manual) Lymphocytes # (Manual) Monocytes # (Manual) PT INR ABG pH ABG pCO2 ABG pO2 ABG HCO3 ABG Total CO2 ABG O2 Saturation Sodium Potassium Glucose POC Glucose (mg/dL) 291 H 217 H Plasma Lactic Acid Yoni Calcium Total Protein Albumin - Diagnostic Findings Chest x-ray: image reviewed CT scan - chest: image reviewed Assessment and Plan Assessment: Fall sustaining head trauma and a small right-sided scapular hematoma. CT of the brain and C-spine without contrast showed no acute intracranial abnormalities or evidence of C-spine fracture. Suspected respiratory arrest requiring bag mask ventilation and BiPAP therapy on arrival to the emergency room. Patient did not require intubation. Patient reportedly never lost pulse. Acute hypoxemic and hypercapnic respiratory failure, currently on 6 L nasal ca nnula. Patient does have persistent large bilateral pleural effusions, which are possibly malignant in nature. Recent thoracentesis of the right chest on 07/04/2022 was exudative based on protein analysis. Fluid cytology did not demonstrate any cytological malignant cells at that time. Monoclonal B cell lymphocytosis, based on recent bone marrow biopsy. Significance is not known. Non-CLL type. Currently being followed by oncology Suspected background COPD, stable Chronic hypoxemic respiratory failure, normally maintained on 5 L/m nasal cannula HS Type 2 diabetes mellitus, insulin-dependent Essential hypertension Hyperlipidemia Hypothyroidism History of right-sided hydronephrosis Remote history of smoking Plan: Patient's medications, labs, chest x-ray, CAT scans were reviewed Continue supplemental oxygen to maintain oxygen saturation of 92% or greater She did not require intubation Obtain chest ultrasound with markings Not on any anticoagulation May consider possible thoracentesis, if no improvement in respiratory status Start Bumex Blood sugar control per admitting Oncology has been consulted The patient's prognosis is guarded, and she will be monitored in the intensive care unit at least overnight. I have personally seen and examined the patient, performed the documentation and the assessment and plan as written. Number of minutes spent on the visit:20 Time with Patient: Greater than 30
--- NOTE | 2022-09-11 06:39 | XR ---
EXAMINATION TYPE: XR chest 1V DATE OF EXAM: 09/11/2022 COMPARISON: 09/10/2022 HISTORY: 76 year-old female bilateral pleural effusions, ICU follow-up TECHNIQUE: Single frontal view of the chest is obtained. FINDINGS: Interval worsening aeration in the left hemithorax now with near complete white out. Only a small portion of the perihilar lung remains aerated. Hazy density in the right suggests a small lay ering pleural effusion on that side as well. IMPRESSION: 1. New near complete white out of the left hemithorax. Consider upright radiographic assessment. 2. Small posteriorly layering right pleural effusion is suggested.
[2022-09-11 07:08] LABS: Glucose,Whole Blood 145 mg/dL (70-110)
[2022-09-11 07:16] LABS: HCT 39.9 % (34.0-46.0); HGB 12.7 gm/dL (11.4-16.0); MCH 27.9 pg (25.0-35.0); MCHC 31.7 g/dL (31.0-37.0); MCV 87.8 fL (80.0-100.0); Mean Platelet Volume 13.3; Platelet Count 115 k/uL (150-450); RBC 4.55 m/uL (3.80-5.40); RDW 15.3 % (11.5-15.5); WBC 28.9 k/uL (3.8-10.6)
[2022-09-11 07:41] LABS: African American GFR (CKD) >90 (>60 ml/min/1.73 sqM); Anion Gap 8 mmol/L; Blood Urea Nitrogen 15 mg/dL (7-17); Calcium 7.9 mg/dL (8.4-10.2); Carbon Dioxide 33 mmol/L (22-30); Chloride 100 mmol/L (98-107); Glucose 153 mg/dL (74-99); Magnesium 1.5 mg/dL (1.6-2.3); Non-African American GFR(CKD) >90 (>60 ml/min/1.73 sqM); Potassium 3.3 mmol/L (3.5-5.1); Sodium 141 mmol/L (137-145)
[2022-09-11] MEDS: PANTOPRAZOLE 40 MG/10 ML VIAL IV SCH (08:11)
[2022-09-11] MEDS: SYMBICORT 160-4.5 MCG INHALER INHALATION SCH ×2 (08:55→19:59)
[2022-09-11] MEDS: IPRATROPIUM-ALBUTEROL 3 ML NEB INHALATION SCH ×4 (08:55→19:59)
[2022-09-11] MEDS ORDERED: Potassium Replacement Protocol 1 EACH MISC MISCELLANE PRN (09:39)
[2022-09-11] MEDS ORDERED: Magnesium Replacement Protocol 1 EACH MISC MISCELLANE PRN (09:39)
[2022-09-11] MEDS: MAGNESIUM SULFATE-D5W PMX 1 GM in DEXTROSE/WATER 1 100ML.BAG IVPB SCH ×2 (09:53→11:39)
[2022-09-11] MEDS: SODIUM CHLORIDE 0.9% 1,000 ML IV SCH ×2 (09:53→23:10)
[2022-09-11 10:23] LABS: Eosinophils # (M) 0.29 k/uL (0-0.7); Lymphocytes # (M) 3.18 k/uL (1.0-4.8); Monocytes # (M) 6.65 k/uL (0-1.0); Neutrophils # (M) 18.79 k/uL (1.3-7.7); Neutrophils % (M) 65 %; Nucleated Red Blood Cells 0 /100 WBC (0-0); Total Cells Counted 100
[2022-09-11 10:24] LABS: Large Platelets Present
[2022-09-11 10:27] LABS: RBC Morphology Normal
[2022-09-11] MEDS: HEPARIN SODIUM,PORCINE/PF 5,000 UNIT/0.5 ML SYRINGE SQ SCH ×2 (10:27→20:01)
[2022-09-11] MEDS: POTASSIUM CHLORIDE 10 MEQ in WATER FOR INJECTION 1 100ML.BAG IVPB SCH ×4 (10:28→18:02)
--- NOTE | 2022-09-11 10:31 | US ---
EXAMINATION TYPE: US chest DATE OF EXAM: 09/11/2022 COMPARISON: 09/11/2022 CLINICAL INDICATION: Female, 76 years old with history of bilateral pleural effusions; Portable ICU patient TECHNIQUE: Targeted ultrasound of the posterior lower bilateral hemithoraces EXAM MEASUREMENTS: Right Pleural Effusion pocket size without lung tissue visualized at time of scan: 6.1 cm Right skin surface to fluid distance: 1.2 cm Left Pleural Effusion pocket size: 10.0 cm Left skin surface to lung tissue: 4.2 cm Left skin surface to fluid distance: 1.0 cm Right side marked for possible thoracentesis outside the dept. Left side marked for possible thoracentesis outside the dept. Pulmonologists are able to review the images in the patient?s EMR. IMPRESSIONS: Moderate right and moderate to large left pleural effusions with markings performed.
--- NOTE | 2022-09-11 10:41 | XR ---
EXAMINATION TYPE: XR chest 1V portable DATE OF EXAM: 09/11/2022 Comparison: Earlier today Clinical History: 76-year-old female status post lt thoracentesis Findings: Upright exam shows moderate right pleural effusion. Small residual left pleural effusion. No apprecia ble pneumothorax. Significant interval improvement in aeration throughout the left lung. Heart mildly enlarged. Impression: 1. Only a small residual left effusion remains. Significant interval improvement in aeration througho ut the left hemithorax. 2. On the upright exam, a moderate right pleural effusion with adjacent atelectasis and/or consolidat ion is noted.
[2022-09-11 11:17] LABS: Glucose,Whole Blood 151 mg/dL (70-110)
--- NOTE | 2022-09-11 14:02 | P.CONS ---
History of Present Illness - Reason for Consult Consult date: 09/11/22 mastocytosis Requesting physician: Rachell Garcia - Chief Complaint resp arrest, AMS - History of Present Illness Mrs. Villalpando is a pleasant female patient of Dr. Connelly referred to him for low platelet count on a routine CBC. Additional studies were ordered which were all negative. Ultrasound showed mild liver heterogeneity, normal spleen. Follow-up that low platelets likely related to a mild ITP or possibly early liver disease. Counts were in a safe range, she was placed on observation. She was noted to have persistent monocytosis as well. BCR/ABL testing 01/2018 was negative. CMML was also in the differential but, since counts were consistent in a safe range, she continued with observation. 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 Extensive workup was negative for any other malignancy. Cytology on pleural fluid was negative. BCR/ABL testing negative. Serum tryptase and urine histamine metabolite testing were markedly elevated, suspicious for systemic mastocytosis. Bone marrow biopsy and aspirate 07/09/22 showed 100% marrow cellularity, no evidence of acute leukemia. No evidence of mastocytosis or myelofibrosis. 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 Follow-up CT showed stable-appearing osteoblastic changes, bilateral pleural effusions. 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 Patient was referred to Dr. Jurado For second opinion regarding the diagnosis. He and Dr. Connelly did discuss the case and patient's symptoms are not felt to be related to these blood abnormalities. Patient's labs are stable, hemoglobin normal at 12.7, platelets 115,000. Her WBC is elevated to 28.9, differential y esterday showing increase in absolute monocytes, lymphocytes and neutrophils. Elevation in WBC not unusual after a respiratory arrest. Patient has a chest x- ray showing white out on the left. CTA was negative for PE, large bilateral pleural effusions and atelectasis. No fevers, patient is on 13 L of oxygen. When seen today patient is reporting some generalized weakness, shortness of breath with activity, denies fevers, chest pain, nausea, diaphoresis. Review of Systems 10 point review of systems is negative except as stated in HPI Past Medical History Past Medical History: Diabetes Mellitus, Hyperlipidemia, Hypertension, Thyroid Disorder Additional Past Medical History / Comment(s): left leg swells at end of day every day for about a year History of Any Multi-Drug Resistant Organisms: None Reported Past Surgical History: Cholecystectomy Additional Past Surgical History / Comment(s): cholecystectomy, cataract surgery Past Anesthesia/Blood Transfusion Reactions: No Reported Reaction Past Psychological History: No Psychological Hx Reported Smoking Status: Former smoker Past Alcohol Use History: Occasional Past Drug Use History: None Reported - Past Family History Father Family Medical History: Cancer, Prostate Disorder Additional Family Medical History / Comment(s): prostate CA Mother Additional Family Medical History / Comment(s): parkinsons Medications and Allergies Home Medications Medication Instructions Recorded Confirmed Type Insulin Glargine,Hum.rec.anlog 15 units SQ DAILY 07/03/22 09/10/22 History [Lantus Solostar Pen] Potassium Chloride ER [K-Dur 10] 10 meq PO DAILY 07/03/22 09/10/22 History Simvastatin 40 mg PO HS 07/03/22 09/10/22 History Triamcinolone 0.025% Cream 1 applic TOPICAL DAILY 07/04/22 09/10/22 History [Kenalog 0.025% Cream] Acetaminophen Tab [Tylenol] 650 mg PO Q6HR PRN tab 07/10/22 09/10/22 Rx Ibuprofen [Advil] 200 mg PO HS PRN tab 07/10/22 09/10/22 Rx Levothyroxine Sodium [Synthroid] 125 mcg PO DAILY@0630 90 Days #90 07/10/22 09/10/22 Rx tab amLODIPine [Norvasc] 5 mg PO DAILY 90 Days #90 tab 07/10/22 09/10/22 Rx diphenhydrAMINE [Benadryl] 25 mg PO HS PRN cap 07/10/22 09/10/22 Rx Bumetanide [Bumex] 1 mg PO DAILY 09/10/22 09/10/22 History Ferrous Sulfate [Feosol] 325 mg PO DAILY 09/10/22 09/10/22 History Fluticasone/Umeclidin/Vilanter 1 puff INHALATION RT-DAILY 09/10/22 09/10/22 History [Trelegy Ellipta 200-62.5-25] Loratadine [Claritin] 10 mg PO DAILY 09/10/22 09/10/22 History Montelukast [Singulair] 10 mg PO DAILY 09/10/22 09/10/22 History Omeprazole 40 mg PO DAILY 09/10/22 09/10/22 History Ondansetron [Zofran] 4 mg PO Q6H PRN 09/10/22 09/10/22 History Allergies Allergy/AdvReac Type Severity Reaction Status Date / Time No Known Allergies Allergy Verified 09/10/22 18:04 Physical Exam Vitals: Vital Signs Temp Pulse Resp BP Pulse Ox FiO2 09/11/22 08:00 97.6 F 58 L 18 127/59 96 09/11/22 07:00 56 L 13 115/44 94 L 09/11/22 06:00 61 16 98 09/11/22 05:00 73 16 88 L 09/11/22 04:00 61 21 114/46 89 L 09/11/22 03:00 57 L 15 111/53 90 L 09/11/22 02:52 91 L 09/11/22 02:00 60 17 117/54 92 L 09/11/22 01:00 73 11 L 120/57 93 L 09/11/22 00:10 97.6 F 80 24 137/58 94 L 09/10/22 23:40 77 14 95 09/10/22 23:30 79 17 118/66 95 09/10/22 23:20 75 18 112/52 96 09/10/22 23:10 68 19 112/52 98 09/10/22 23:00 74 17 99 09/10/22 22:50 78 122/65 96 09/10/22 22:40 81 123/57 80 L 09/10/22 22:30 80 20 120/62 95 09/10/22 22:20 81 131/64 96 09/10/22 22:10 81 115/64 95 09/10/22 22:00 81 17 115/62 96 09/10/22 21:50 82 18 121/58 09/10/22 21:40 78 20 130/64 98 09/10/22 21:30 82 20 111/55 96 09/10/22 21:20 75 16 111/52 98 09/10/22 21:10 74 17 109/48 97 09/10/22 21:00 77 16 107/57 99 09/10/22 20:50 82 18 114/54 09/10/22 20:40 80 18 109/50 99 09/10/22 20:30 78 16 119/60 97 09/10/22 20:20 80 20 112/49 97 09/10/22 20:10 79 16 115/49 09/10/22 20:00 80 16 108/51 98 09/10/22 19:50 80 18 112/47 98 09/10/22 19:42 60 09/10/22 19:40 82 16 119/51 99 09/10/22 19:30 84 17 100 09/10/22 19:28 85 16 121/53 100 09/10/22 19:19 84 22 121/53 100 09/10/22 17:35 14 09/10/22 17:17 97 30 H 135/54 95 Intake and Output 09/10/22 09/11/22 09/11/22 22:59 06:59 14:59 Output Total 600 Balance -600 Output: Urine 600 Other: Voiding Method External Catheter # Voids 0 0 Weight 47.627 kg 51.9 kg - Constitutional General appearance: cooperative, no acute distress, thin - EENT Eyes: anicteric sclerae, EOMI ENT: hearing grossly normal, normal oropharynx - Neck Neck: no lymphadenopathy - Respiratory Respiratory: left: diminished, bilateral: rales - Cardiovascular Rhythm: regular Heart sounds: normal: S1, S2 Abnormal Heart Sounds: no systolic murmur, no diastolic murmur, no rub, no S3 Gallop, no S4 Gallop, no click, no other leg Peripheral Edema: bilateral: None - Gastrointestinal General gastrointestinal: no absent bowel sounds, no decreased bowel sounds, no distended, no hepatomegaly, no hyperactive bowel sounds, normal bowel sounds, no organomegaly, no rigid, no scaphoid, soft, no splenomegaly, no tenderness, no umbilical hernia, no ventral hernia - Integumentary Integumentary: normal - Neurologic Neurologic: CNII-XII intact - Musculoskeletal Musculoskeletal: generalized weakness - Psychiatric Psychiatric: A&O x's 3, appropriate affect, intact judgment & insight Results CBC & Chem 7: 09/11/22 07:02 09/11/22 07:02 Labs: Abnormal Lab Results - Last 24 Hours (Table) 09/10/22 09/10/22 09/10/22 Range/Units 17:23 17:28 17:35 WBC 21.6 H (3.8-10.6) k/uL Plt Count 120 L (150-450) k/uL Neutrophils # (Manual) 12.53 H (1.3-7.7) k/uL Lymphocytes # (Manual) 6.05 H (1.0-4.8) k/uL Monocytes # (Manual) 2.81 H (0-1.0) k/uL PT (9.0-12.0) sec INR (<1.2) ABG pH 7.26 L (7.35-7.45) ABG pCO2 59 H (35-45) mmHg ABG pO2 180 H (83-108) mmHg ABG HCO3 26 H (21-25) mmol/L ABG Total CO2 28 H (19-24) mmol/L ABG O2 Saturation 99.3 H (94-97) % Sodium (137-145) mmol/L Potassium (3.5-5.1) mmol/L Carbon Dioxide (22-30) mmol/L Glucose (74-99) mg/dL POC Glucose (mg/dL) 494 H (70-110) mg/dL Plasma Lactic Acid Yoni (0.7-2.0) mmol/L Calcium (8.4-10.2) mg/dL Magnesium (1.6-2.3) mg/dL Total Protein (6.3-8.2) g/dL Albumin (3.5-5.0) g/dL 09/10/22 09/10/22 09/10/22 Range/Units 17:35 17:35 17:35 WBC (3.8-10.6) k/uL Plt Count (150-450) k/uL Neutrophils # (Manual) (1.3-7.7) k/uL Lymphocytes # (Manual) (1.0-4.8) k/uL Monocytes # (Manual) (0-1.0) k/uL PT 13.4 H (9.0-12.0) sec INR 1.3 H (<1.2) ABG pH (7.35-7.45) ABG pCO2 (35-45) mmHg ABG pO2 (83-108) mmHg ABG HCO3 (21-25) mmol/L ABG Total CO2 (19-24) mmol/L ABG O2 Saturation (94-97) % Sodium 136 L (137-145) mmol/L Potassium 3.4 L (3.5-5.1) mmol/L Carbon Dioxide (22-30) mmol/L Glucose 518 H* (74-99) mg/dL POC Glucose (mg/dL) (70-110) mg/dL Plasma Lactic Acid Yoni 4.8 H* (0.7-2.0) mmol/L Calcium 7.4 L (8.4-10.2) mg/dL Magnesium (1.6-2.3) mg/dL Total Protein 5.9 L (6.3-8.2) g/dL Albumin 3.4 L (3.5-5.0) g/dL 09/10/22 09/10/22 09/10/22 Range/Units 19:57 20:22 21:19 WBC (3.8-10.6) k/uL Plt Count (150-450) k/uL Neutrophils # (Manual) (1.3-7.7) k/uL Lymphocytes # (Manual) (1.0-4.8) k/uL Monocytes # (Manual) (0-1.0) k/uL PT (9.0-12.0) sec INR (<1.2) ABG pH (7.35-7.45) ABG pCO2 (35-45) mmHg ABG pO2 (83-108) mmHg ABG HCO3 (21-25) mmol/L ABG Total CO2 (19-24) mmol/L ABG O2 Saturation (94-97) % Sodium (137-145) mmol/L Potassium (3.5-5.1) mmol/L Carbon Dioxide (22-30) mmol/L Glucose (74-99) mg/dL POC Glucose (mg/dL) 515 H 483 H (70-110) mg/dL Plasma Lactic Acid Yoni 2.3 H* (0.7-2.0) mmol/L Calcium (8.4-10.2) mg/dL Magnesium (1.6-2.3) mg/dL Total Protein (6.3-8.2) g/dL Albumin (3.5-5.0) g/dL 09/10/22 09/10/22 09/10/22 Range/Units 22:21 23:28 23:42 WBC (3.8-10.6) k/uL Plt Count (150-450) k/uL Neutrophils # (Manual) (1.3-7.7) k/uL Lymphocytes # (Manual) (1.0-4.8) k/uL Monocytes # (Manual) (0-1.0) k/uL PT (9.0-12.0) sec INR (<1.2) ABG pH (7.35-7.45) ABG pCO2 (35-45) mmHg ABG pO2 (83-108) mmHg ABG HCO3 (21-25) mmol/L ABG Total CO2 (19-24) mmol/L ABG O2 Saturation (94-97) % Sodium (137-145) mmol/L Potassium (3.5-5.1) mmol/L Carbon Dioxide (22-30) mmol/L Glucose (74-99) mg/dL POC Glucose (mg/dL) 405 H 266 H (70-110) mg/dL Plasma Lactic Acid Yoni 3.8 H* (0.7-2.0) mmol/L Calcium (8.4-10.2) mg/dL Magnesium (1.6-2.3) mg/dL Total Protein (6.3-8.2) g/dL Albumin (3.5-5.0) g/dL 09/11/22 09/11/22 09/11/22 Range/Units 00:02 01:51 07:02 WBC 28.9 H (3.8-10.6) k/uL Plt Count (150-450) k/uL Neutrophils # (Manual) (1.3-7.7) k/uL Lymphocytes # (Manual) (1.0-4.8) k/uL Monocytes # (Manual) (0-1.0) k/uL PT (9.0-12.0) sec INR (<1.2) ABG pH (7.35-7.45) ABG pCO2 (35-45) mmHg ABG pO2 (83-108) mmHg ABG HCO3 (21-25) mmol/L ABG Total CO2 (19-24) mmol/L ABG O2 Saturation (94-97) % Sodium (137-145) mmol/L Potassium (3.5-5.1) mmol/L Carbon Dioxide (22-30) mmol/L Glucose (74-99) mg/dL POC Glucose (mg/dL) 291 H 217 H (70-110) mg/dL Plasma Lactic Acid Yoni (0.7-2.0) mmol/L Calcium (8.4-10.2) mg/dL Magnesium (1.6-2.3) mg/dL Total Protein (6.3-8.2) g/dL Albumin (3.5-5.0) g/dL 09/11/22 09/11/22 Range/Units 07:02 07:07 WBC (3.8-10.6) k/uL Plt Count (150-450) k/uL Neutrophils # (Manual) (1.3-7.7) k/uL Lymphocytes # (Manual) (1.0-4.8) k/uL Monocytes # (Manual) (0-1.0) k/uL PT (9.0-12.0) sec INR (<1.2) ABG pH (7.35-7.45) ABG pCO2 (35-45) mmHg ABG pO2 (83-108) mmHg ABG HCO3 (21-25) mmol/L ABG Total CO2 (19-24) mmol/L ABG O2 Saturation (94-97) % Sodium (137-145) mmol/L Potassium 3.3 L (3.5-5.1) mmol/L Carbon Dioxide 33 H (22-30) mmol/L Glucose 153 H (74-99) mg/dL POC Glucose (mg/dL) 145 H (70-110) mg/dL Plasma Lactic Acid Yoni (0.7-2.0) mmol/L Calcium 7.9 L (8.4-10.2) mg/dL Magnesium 1.5 L (1.6-2.3) mg/dL Total Protein (6.3-8.2) g/dL Albumin (3.5-5.0) g/dL Chest x-ray: report reviewed CT scan - chest: report reviewed Assessment and Plan (1) Respiratory failure Current Visit: Yes Status: Acute Priority: High Code(s): J96.90 - RESPI RATORY FAILURE, UNSP, UNSP W HYPOXIA OR HYPERCAPNIA SNOMED Code(s): 914648611 (2) Bilateral pleural effusion Current Visit: Yes Status: Chronic Priority: High Code(s): J90 - PLEURAL EFFUSION, NOT ELSEWHERE CLASSIFIED SNOMED Code(s): 127483719 (3) Leukocytosis Current Visit: Yes Status: Chronic Priority: Medium Code(s): D72.829 - ELEVATED WHITE BLOOD CELL COUNT, UNSPECIFIED SNOMED Code(s): 222077598 Plan: Respiratory failure -Patient is in the intensive care unit. Patient overall looks pretty good today, vital signs are stable Started on 13 L of oxygen. O2 needs have been noted on charting to be decreasing over the day. Pleural effusions -Patient has had thoracentesis, cytology pending -Decreased need for O2 post thoracentesis Leukocytosis -Patient's presenting symptoms-pleural effusions, respiratory arrest, shortness of breath-not felt to be caused by slightly abnormal blood counts or bone marrow. Patient was referred to Dr. Jurado who agrees with this assessment. -Monitor CBC with differential while inpatient to see if patient's counts have return to baseline attests: I have seen and examined patient, performed H&P and developed impression and plan of care. Discussed with dictator. Agree with documentatio n, dictated as a scribe
--- NOTE | 2022-09-11 14:40 | OP ---
OPERATIVE REPORT DATE OF SERVICE : PROCEDURE PERFORMED: Left-sided thoracentesis. PREOPERATIVE DIAGNOSIS: Large left pleural effusion with complete opacification of the left lung. POSTOPERATIVE DIAGNOSIS: Large left pleural effusion with complete opacification of the left lung. ANESTHESIA USED: 2 mL of 1% lidocaine. DESCRIPTION OF PROCEDURE: The patient was placed at the edge of the bed in a sitting upright position leaning on a table. The area below the left scapula was prepared in a sterile fashion. The drapes were applied. The area of the fluid was earlier localized by ultrasound guidance. At the level of the tip of the scapula and ninth intercostal space, the area was locally anesthetized. Then, a 26-gauge needle was inserted into the pleural space, and the fluid was localized with a needle. A small tiny incision (stab wound) was made at the same site, and a thoracentesis catheter and needle were used, advanced into the same site into the pleural space until the fluid was obtained. Then, the catheter was advanced over the needle, and the needle was pulled out of the pleural space. Freely flowing fluid was removed. A total of 2000 mL of straw-colored fluid was removed from the left pleural space. The procedure was well tolerated. No complications. Fluid was sent for different diagnostic studies. MMODL / IJN: [id number] /
[2022-09-11 17:20] LABS: Glucose,Whole Blood 289 mg/dL (70-110)
[2022-09-11 19:58] LABS: Glucose,Whole Blood 395 mg/dL (70-110)
[2022-09-11] MEDS: INSULIN DETEMIR (LEVEMIR) 100 UNIT/ML SYR SQ SCH (20:01)
[2022-09-11] MEDS ORDERED: INSULIN ASPART (NovoLOG) 100 UNIT/ML VIAL SQ ONE (23:36)
[2022-09-12 00:08] LABS: Glucose,Whole Blood 138 mg/dL (70-110)
[2022-09-12 02:33] LABS: Glucose,Whole Blood 72 mg/dL (70-110)
[2022-09-12] MEDS: INSULIN ASPART (NovoLOG) 100 UNIT/ML VIAL SQ SCH ×5 (02:33→21:14)
[2022-09-12 03:53] LABS: Glucose,Whole Blood 58 mg/dL (70-110)
[2022-09-12 04:22] LABS: Glucose,Whole Blood 62 mg/dL (70-110)
[2022-09-12 04:47] LABS: Glucose,Whole Blood 71 mg/dL (70-110)
[2022-09-12 05:02] LABS: Appearance,BF #CLD
[2022-09-12 05:22] LABS: African American GFR (CKD) >90 (>60 ml/min/1.73 sqM); Anion Gap 8 mmol/L; Blood Urea Nitrogen 17 mg/dL (7-17); Calcium 7.5 mg/dL (8.4-10.2); Carbon Dioxide 30 mmol/L (22-30); Chloride 99 mmol/L (98-107); Glucose 66 mg/dL (74-99); Magnesium 1.8 mg/dL (1.6-2.3); Non-African American GFR(CKD) 86 (>60 ml/min/1.73 sqM); Potassium 3.5 mmol/L (3.5-5.1); Sodium 137 mmol/L (137-145)
[2022-09-12 05:37] LABS: HCT 39.3 % (34.0-46.0); MCH 26.6 pg (25.0-35.0); MCHC 30.6 g/dL (31.0-37.0); MCV 86.9 fL (80.0-100.0); Mean Platelet Volume 14.2; Platelet Count 100 k/uL (150-450); RBC 4.52 m/uL (3.80-5.40); RDW 15.4 % (11.5-15.5); WBC 21.1 k/uL (3.8-10.6)
[2022-09-12 05:39] LABS: Glucose,Whole Blood 166 mg/dL (70-110)
[2022-09-12 06:39] LABS: Glucose,Whole Blood 175 mg/dL (70-110)
[2022-09-12] MEDS: POTASSIUM BICARBONATE/CIT AC 20 MEQ TABLET.EFF NG-TUBE SCH ×2 (06:48→08:58)
--- NOTE | 2022-09-12 06:50 | XR ---
EXAMINATION TYPE: XR chest 1V DATE OF EXAM: 09/12/2022 6:12 AM COMPARISON: Chest radiographs from 09/11/2022 TECHNIQUE: XR chest 1V Portable AP upright radiograph of the chest. CLINICAL INDICATION:Female, 76 years old with history of Bilat pleural effusions; FINDINGS: Lungs/Pleura: Small moderate bilateral pleural effusions with increased left pleural effusion. There is associated atelectasis. Pulmonary vascularity: Unremarkable. Heart/mediastinum: Cardiomediastinal silhouette is enlarged and stable. Atherosclerotic calcificatio ns are seen in the aorta. Musculoskeletal: No acute osseous pathology. IMPRESSION: Cardiomegaly and pulmonary vascular congestion with small to moderate bilateral pleural effusions. In creased left pleural effusion from prior exam. Correlate for CHF exacerbation.
[2022-09-12 07:43] LABS: Band Neutrophils % 2 %; Lymphocytes # (M) 5.28 k/uL (1.0-4.8); Monocytes # (M) 1.06 k/uL (0-1.0); Neutrophils % (M) 68 %; Nucleated Red Blood Cells 0 /100 WBC (0-0); Total Cells Counted 100
[2022-09-12] MEDS: SYMBICORT 160-4.5 MCG INHALER INHALATION SCH ×2 (07:54→19:44)
[2022-09-12] MEDS: IPRATROPIUM-ALBUTEROL 3 ML NEB INHALATION SCH ×4 (07:54→19:44)
[2022-09-12] MEDS ORDERED: MAGNESIUM SULFATE-D5W PMX 1 GM in DEXTROSE/WATER 1 100ML.BAG IVPB ONE (08:00)
[2022-09-12] MEDS: BUMETANIDE 0.25 MG/ML 4 ML VIAL IV SCH ×2 (08:57→21:45)
[2022-09-12] MEDS: PANTOPRAZOLE 40 MG/10 ML VIAL IV SCH (08:59)
[2022-09-12] MEDS: HEPARIN SODIUM,PORCINE/PF 5,000 UNIT/0.5 ML SYRINGE SQ SCH ×2 (08:59→21:14)
[2022-09-12 09:50] LABS: Total Protein, Body Fluid 3480 mg/dL
--- NOTE | 2022-09-12 11:02 | XR ---
EXAMINATION TYPE: XR chest 1V portable DATE OF EXAM: 09/12/2022 10:25 AM COMPARISON: Chest radiographs from 09/12/2022 TECHNIQUE: XR chest 1V portable Portable AP radiograph of the chest. CLINICAL INDICATION:Female, 76 years old with history of post rt thoracentesis; FINDINGS: Lungs/Pleura: Blunting of both costophrenic angles consistent with small to moderate left pleural eff usion and slight decreased small right pleural effusion. No pneumothorax. There is associated atelect asis. Pulmonary vascularity: Unremarkable. Heart/mediastinum: Cardiomediastinal silhouette is enlarged and stable. Musculoskeletal: No acute osseous pathology. Other: Cholecystectomy clips in the right upper quadrant. IMPRESSION: 1. Decrease small right pleural effusion status post thoracentesis. No pneumothorax. 2. Similar small to moderate sized left pleural effusion.
[2022-09-12 11:55] LABS: Glucose,Whole Blood 120 mg/dL (70-110)
--- NOTE | 2022-09-12 12:33 | P.PCN ---
Date of Procedure: 09/12/22 Preoperative Diagnosis: Right pleural effusion Postoperative Diagnosis: Right pleural effusion Surgeon: Jayro Mccain Manager Facility [facility]: [facility] Estimated Blood Loss (ml): 0 Indications for Procedure: Large right-sided pleural effusion, shortness of breath Operative Findings: Large right-sided pleural effusion Description of Procedure: Right sided thoracentesis. Anesthesia used 2 mL of 1% lidocaine Procedure: Patient was placed in a sitting upright position, the area of the pleural effusion was earlier localized by ultrasound guidance. And it correlated to the area of asymmetric intercostal space and tip of the scapula. The area was locally anesthetized with lidocaine. And a 26-gauge needle was inserted into the pleural space until the fluid was localized. Then a small tiny stab wound was made, and the standard thoracentesis catheter and needle were used needle advanced into the pleural space and at the fluid was localized and obtained the cath was advanced over the needle and the needle was pulled out of the pleural space. Free-flowing fluid, stephanie colored fluid was drained from the right pleural space 1200 mL of fluid total was drained. Procedure was well- tolerated, no evidence of any immediate complications. Fluid was sent for different diagnostic studies.
--- NOTE | 2022-09-12 13:21 | P.PN ---
Subjective Progress Note Date: 09/12/22 Principal diagnosis: Bilateral pleural effusions, acute hypoxic and hypercapnic respiratory failure I am seeing this patient in new consultation today 09/11/2022 in the intensive c are unit after the patient experienced a fall yesterday evening resulting in head trauma and a subsequent respiratory arrest. Patient is a 76-year-old white female with past medical history significant for bilateral pleural effusions, oxygen dependent on 5 L/m nasal cannula, COPD, diabetes mellitus type 2, hypertension, hyperlipidemia, hypothyroidism, hydroureternephrosis, and remote history of smoking. Her primary care provider is Dr. Barron. Patient was seen in the office by Dr. Rodgers, for a hospital follow-up. Patient did have a recent hospitalization back in June and again in July of this year. 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 Patient also had large bilateral pleural effusions at that time. Patient did undergo a thoracentesis of the right chest, which showed an exudative effusion based on protein analysis. No cytologically malignant cells were identified. A follow-up bone scan showed focal areas of uptake within the bilateral humeri, distal right tibia segment, ribs, and thoracic spine suggestive of metastatic disease. Oncology was consulted, and the patient did undergo a bone marrow biopsy showing evidence of monoclonal B cell lymphocytosis, non-CLL type. Significance unknown. She has been following with her oncologist, Dr. Connelly. Yesterday evening, the patient was exiting her car in the garage when she "lost her balance", fell landing backwards, and hit her head. She does not remember much after this event. Her apparently heard her yell out and fall. She was reportedly unresponsive, and the did perform CPR. When EMS arrived, the patient was reportedly not effectively breathing, and had to be bagged. She reportedly never lost a pulse. The patient was at her primary care physician office earlier that day, and there were apparently adjustments to her oxygen. She denies any history of seizures, vertigo. She denies any chest pain, heart palpitations, lightheadedness, or prior syncopal episodes. On arrival to the emergency room, the patient was placed on BiPAP. ABGs at that time showed a PaO2 of 180, pCO2 of 59, pH of 7.26. On my evaluation, she is no longer on the BiPAP. The patient is alert, in no acute distress, on 6 L nasal cannula. Chest x-ray on arrival showed bilateral pleural effusions with mild pulmonary vascular congestion. A follow-up chest CTA showed no evidence of pulmonary embolism and redemonstration of the large bilateral pleural effusions and associated atelectasis. CT of the brain and C-spine without contrast showed no acute intracranial abnormalities or evidence of C-spine fracture. There was a small right scapular hematoma. CBC on arrival shows some leukocytosis with a WBC count of 21.6, hemoglobin 11.9, hematocrit 37.8, platelets 120. BMP on arrival shows a sodium 136, potassium 3.4, chloride 99, serum CO2 22, BUN 15, creatinine 0.58, glucose 518. Lactic acid level was elevated at 3.8. Troponin negative 1. NT proBNP low. Patient's vital signs are stable at the moment. Patient was reevaluated today on 09/12/2022, doing well, feeling better today, chest x-ray is showing small bilateral pleural effusions, right more so than left. Yesterday I performed left-sided thoracentesis, and today I performed a right-sided thoracentesis. The fluid from today was sent also for different diagnostic studies, clearly the fluid is exudative in nature. Protein is 3.5 g. Cytology is pending, I believe her effusion is most likely secondary to her underlying monoclonal B cell lymphocytosis unless proven otherwise. Patient continues to have a bit of leukocytosis with the risk of 21.1 hemoglobin is 12. ABG on admission showed a pO2 of 180 pCO2 59 pH of 7.26. Basic metabolic profile is normal, renal profile is normal today after the thoracentesis, I would likely recommend transfer the patient out of the ICU to regular medical floor Objective - Vital Signs Vital signs: Vital Signs Temp 97.8 F 09/12/22 08:00 Pulse 80 09/12/22 12:00 Resp 15 09/12/22 09:00 BP 109/51 09/12/22 09:00 Pulse Ox 97 09/12/22 09:00 FiO2 60 09/10/22 19:42 Intake & Output 09/11/22 09/12/22 09/12/22 18:59 06:59 18:59 Intake Total 1000 1150 550 Output Total 2500 400 Balance -1500 1150 150 Weight 50.7 kg Intake: IV 825 550 Sodium Chloride 0.9% 1, 825 450 000 ml @ 75 mls/hr IV . [id number] [facility] Rx#:[id number] magnesium 100 Intake, IV Titration 700 75 Amount Magnesium Sulfate-D5w Pmx 100 1 gm In Dextrose/Water 1 100ml.bag @ 100 mls/hr IVPB Q1H [facility] Rx#: [id number] Sodium Chloride 0.9% 1, 600 75 000 ml @ 75 mls/hr IV . [id number] [facility] Rx#:[id number] Oral 300 250 Output: Urine 500 400 Other 2000 Other: Voiding Method External Catheter External Catheter External Catheter # Voids 0 - Exam Physical Exam: Revealed 76-year-old female in no distress on 2 L nasal cannula Head: Atraumatic normocephalic. HEENT:[Neck is supple.] [No neck masses.] [No thyromegaly.] [No JVD.] Chest: [Diminished breath sound bilaterally no crackles or rhonchi or wheezes] Cardiac Exam: [Normal S1 and S2, no S3 gallop, no murmur.] Abdomen: [Soft, nontender, no megaly, no rebound, no guarding, normal bowel sounds.] Extremities: [No clubbing, no edema, no cyanosis.] Neurological Exam: [No focal neurologic deficit.] Alert oriented 3 Psychiatric: Normal mood, affect and normal to status examination. Skin: No rashes. - Labs CBC & Chem 7: 09/12/22 04:10 09/12/22 04:10 Labs: Abnormal Lab Results - Last 24 Hours (Table) 09/11/22 09/11/22 09/12/22 Range/Units 17:19 19:57 00:07 WBC (3.8-10.6) k/uL MCHC (31.0-37.0) g/dL Plt Count (150-450) k/uL Neutrophils # (Manual) (1.3-7.7) k/uL Lymphocytes # (Manual) (1.0-4.8) k/uL Monocytes # (Manual) (0-1.0) k/uL Glucose (74-99) mg/dL POC Glucose (mg/dL) 289 H 395 H 138 H (70-110) mg/dL Hemoglobin A1c (<=6.0) % Calcium (8.4-10.2) mg/dL 09/12/22 09/12/22 09/12/22 Range/Units 03:50 04:10 04:10 WBC 21.1 H (3.8-10.6) k/uL MCHC 30.6 L (31.0-37.0) g/dL Plt Count 100 L (150-450) k/uL Neutrophils # (Manual) 14.70 H (1.3-7.7) k/uL Lymphocytes # (Manual) 5.28 H (1.0-4.8) k/uL Monocytes # (Manual) 1.06 H (0-1.0) k/uL Glucose (74-99) mg/dL POC Glucose (mg/dL) 58 L (70-110) mg/dL Hemoglobin A1c 10.7 H (<=6.0) % Calcium (8.4-10.2) mg/dL 09/12/22 09/12/22 09/12/22 Range/Units 04:10 04:21 05:37 WBC (3.8-10.6) k/uL MCHC (31.0-37.0) g/dL Plt Count (150-450) k/uL Neutrophils # (Manual) (1.3-7.7) k/uL Lymphocytes # (Manual) (1.0-4.8) k/uL Monocytes # (Manual) (0-1.0) k/uL Glucose 66 L (74-99) mg/dL POC Glucose (mg/dL) 62 L 166 H (70-110) mg/dL Hemoglobin A1c (<=6.0) % Calcium 7.5 L (8.4-10.2) mg/dL 09/12/22 09/12/22 Range/Units 06:37 11:53 WBC (3.8-10.6) k/uL MCHC (31.0-37.0) g/dL Plt Count (150-450) k/uL Neutrophils # (Manual) (1.3-7.7) k/uL Lymphocytes # (Manual) (1.0-4.8) k/uL Monocytes # (Manual) (0-1.0) k/uL Glucose (74-99) mg/dL POC Glucose (mg/dL) 175 H 120 H (70-110) mg/dL Hemoglobin A1c (<=6.0) % Calcium (8.4-10.2) mg/dL Assessment and Plan Assessment: Impression: Bilateral pleural effusions, exudative in nature, most likely secondary to her underlying monoclonal B-cell lymphocytosis based on previous bone marrow biopsy. Acute on chronic hypoxic and acute hypercapnic respiratory failure secondary to above Status post bilateral thoracentesis procedures. Type 2 diabetes with no complications. Status post head trauma with right sided scapular hematoma Monoclonal B-cell lymphocytosis and recent bone marrow biopsy Chronic hypoxic respiratory failure on 5 L nasal cannula at home Essential hypertension Hypothyroidism Ex-smoker History of right sided hydronephrosis. Recommendation: Continue present supportive care measures, continue oxygen and titrate accordingly Patient is now status post thoracentesis 2, however I have a feeling that the fluid will keep coming back and I believe is most likely secondary to her underlying bone marrow issues and B-cell lymphocytosis. Transfer patient out of the ICU to regular medical floor Awaiting the final report on her pleural effusions however initial report is pointing to exudative effusion, not a transudate and not cardiac in nature. Continue diuretics in the meantime. Oncology to follow and address her primary hematological problem We will continue to follow. Time with Patient: Less than 30
[2022-09-12 13:49] LABS: Glucose, BF Source Pleural Fluid; Glucose, Body Fluid 245 mg/dL
--- NOTE | 2022-09-12 14:31 | HP ---
HISTORY AND PHYSICAL HISTORY OF PRESENT ILLNESS: Examined her on 09/11/2022 in ICU. She came to the hospital with acute respiratory distress. After going home from an office visit, she was found to have large bilateral pleural effusions. She had a brief respiratory arrest at home. They got scheduling draining of the left-sided thoracentesis. They sheri 2000 mL out except for diagnostic tests, maintain in the ICU. She had a recent bone marrow biopsy which showed some mild form of CLL, apparently monoclonal B-cell lymphocytosis. Pulmonary saw her as mentioned to the thoracentesis. She normally wears oxygen at home at night up to 2 to 3 L. 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 FAMILY HISTORY: Father with prostate, mother with Parkinson's. HOME MEDICATIONS: Reviewed. ALLERGIES: Negative. PHYSICAL EXAMINATION: VITAL SIGNS: Blood pressure was 117 to 130s over 50s, O2 is 90% to 94%, temp 97.6, and pulse 60-80. CARDIOVASCULAR: S1, S2. LUNGS: Rales at the base. HEMATOLOGY: Negative for Homans. PSYCH: Fair mood and affect, giving appropriate answers. White count is 21.6, sodium 136, potassium 3.4. ABG shows pCO2 59. She is on currently on 3 to 4 L. INR is 1.3. Sugars are high 400 to 500. She has a small right- sided scapular hematoma. CT of the brain and C-spine without contrast, suspected respiratory arrest. She is on BiPAP therapy at night which came to the hospital. Currently, she is on 4 L in ICU. Bilateral pleural effusions are large and acutely returned from last admission in the past month, possibly malignant. We are going to do paracentesis again and monitor her, wait for cytology. COPD, COVID, interstitial fibrosis, hypertension, hypothyroidism, remote smoking history, diabetes mellitus, uncontrolled diabetes controlled. Current therapy started insulin. Accu-Chek protocol. Prognosis guarded in ICU. MMODL / IJN: [id number] /
[2022-09-12] MEDS: SODIUM CHLORIDE 0.9% 1,000 ML IV SCH (15:25)
--- NOTE | 2022-09-12 15:27 | P.PN ---
Subjective Progress Note Date: 09/12/22 Principal diagnosis: Altered mental status, respiratory arrest. In follow-up today patient has no complaints, no pain, respiratory status is stable. She had a left thoracentesis yesterday. On chart review she had a right thoracentesis today. Pleural fluid is still pending. Patient's daughter was on the phone with multiple questions. Objective - Vital Signs Vital signs: Vital Signs Temp 97.8 F 09/12/22 08:00 Pulse 80 09/12/22 12:00 Resp 15 09/12/22 09:00 BP 109/51 09/12/22 09:00 Pulse Ox 97 09/12/22 09:00 FiO2 60 09/10/22 19:42 Intake & Output 09/11/22 09/12/22 09/12/22 18:59 06:59 18:59 Intake Total 1000 1150 625 Output Total 2500 600 Balance -1500 1150 25 Weight 50.7 kg Intake: IV 825 625 Sodium Chloride 0.9% 1, 825 525 000 ml @ 75 mls/hr IV . [id number] [facility] Rx#:[id number] magnesium 100 Intake, IV Titration 700 75 Amount Magnesium Sulfate-D5w Pmx 100 1 gm In Dextrose/Water 1 100ml.bag @ 100 mls/hr IVPB Q1H [facility] Rx#: [id number] Sodium Chloride 0.9% 1, 600 75 000 ml @ 75 mls/hr IV . [id number] [facility] Rx#:[id number] Oral 300 250 Output: Urine 500 600 Other 2000 Other: Voiding Method External Catheter External Catheter External Catheter # Voids 0 - Constitutional General appearance: Present: cooperative, no acute distress, thin (Petite) - EENT Eyes: Present: anicteric sclerae, EOMI ENT: Present: hearing grossly normal, normal oropharynx - Respiratory Respiratory: bilateral: diminished (L>R), prolonged expiration - Cardiovascular Heart sounds: normal: S1, S2 Abnormal Heart Sounds: Absent: systolic murmur, diastolic murmur, rub, S3 Gallop, S4 Gallop, click, other - Peripheral edema leg Peripheral Edema: bilateral: None - Gastrointestinal General gastrointestinal: Present: normal bowel sounds, soft - Integumentary Integumentary: Present: pale - Neurologic Neurologic: Present: CNII-XII intact - Musculoskeletal Musculoskeletal: Present: generalized weakness - Psychiatric Psychiatric: Present: A&O x's 3, appropriate affect, intact judgment & insight - Labs CBC & Chem 7: 09/12/22 04:10 09/12/22 04:10 Labs: Abnormal Lab Results - Last 24 Hours (Table) 09/11/22 09/11/22 09/12/22 Range/Units 17:19 19:57 00:07 WBC (3.8-10.6) k/uL MCHC (31.0-37.0) g/dL Plt Count (150-450) k/uL Neutrophils # (Manual) (1.3-7.7) k/uL Lymphocytes # (Manual) (1.0-4.8) k/uL Monocytes # (Manual) (0-1.0) k/uL Glucose (74-99) mg/dL POC Glucose (mg/dL) 289 H 395 H 138 H (70-110) mg/dL Hemoglobin A1c (<=6.0) % Calcium (8.4-10.2) mg/dL 09/12/22 09/12/22 09/12/22 Range/Units 03:50 04:10 04:10 WBC 21.1 H (3.8-10.6) k/uL MCHC 30.6 L (31.0-37.0) g/dL Plt Count 100 L (150-450) k/uL Neutrophils # (Manual) 14.70 H (1.3-7.7) k/uL Lymphocytes # (Manual) 5.28 H (1.0-4.8) k/uL Monocytes # (Manual) 1.06 H (0-1.0) k/uL Glucose (74-99) mg/dL POC Glucose (mg/dL) 58 L (70-110) mg/dL Hemoglobin A1c 10.7 H (<=6.0) % Calcium (8.4-10.2) mg/dL 09/12/22 09/12/22 09/12/22 Range/Units 04:10 04:21 05:37 WBC (3.8-10.6) k/uL MCHC (31.0-37.0) g/dL Plt Count (150-450) k/uL Neutrophils # (Manual) (1.3-7.7) k/uL Lymphocytes # (Manual) (1.0-4.8) k/uL Monocytes # (Manual) (0-1.0) k/uL Glucose 66 L (74-99) mg/dL POC Glucose (mg/dL) 62 L 166 H (70-110) mg/dL Hemoglobin A1c (<=6.0) % Calcium 7.5 L (8.4-10.2) mg/dL 09/12/22 09/12/22 Range/Units 06:37 11:53 WBC (3.8-10.6) k/uL MCHC (31.0-37.0) g/dL Plt Count (150-450) k/uL Neutrophils # (Manual) (1.3-7.7) k/uL Lymphocytes # (Manual) (1.0-4.8) k/uL Monocytes # (Manual) (0-1.0) k/uL Glucose (74-99) mg/dL POC Glucose (mg/dL) 175 H 120 H (70-110) mg/dL Hemoglobin A1c (<=6.0) % Calcium (8.4-10.2) mg/dL - Imaging and Cardiology Chest x-ray: report reviewed Assessment and Plan (1) Respiratory failure Current Visit: Yes Status: Acute Priority: High Code(s): J96.90 - RESPI RATORY FAILURE, UNSP, UNSP W HYPOXIA OR HYPERCAPNIA SNOMED Code(s): 943556581 (2) Bilateral pleural effusion Current Visit: Yes Status: Chronic Priority: High Code(s): J90 - PLEURAL EFFUSION, NOT ELSEWHERE CLASSIFIED SNOMED Code(s): 244157745 (3) Leukocytosis Current Visit: Yes Status: Chronic Priority: Medium Code(s): D72.829 - ELEVATED WHITE BLOOD CELL COUNT, UNSPECIFIED SNOMED Code(s): 851742275 Plan: Respiratory failure -Patient remains in the intensive care unit. Today doing well. 2 L nasal cannula, vital signs stable. Pleural effusions -Recurrent. Recurrent effusions typically associated with a malignant cause but, unfortunately, we do not have confirmation of the same-no solid masses, or gross hematological malignancy. Back in June there is a NM bone scan showing multiple bone lesions-may have to consider biopsy of one? -Patient has had right thoracentesis, cytology pending. Patient had a left thoracentesis today, I requested flow cytometry. Leukocytosis -Stable today -Patient's presenting symptoms-pleural effusions were the cause of SOB and likely respiratory arrest. Dr. Jurado, Pilates Instructor at [facility], has discussed the case with Dr. Connelly and it was not felt that the effusions were 2/2 hematologic findings, based on the recent bone marrow biopsy.
[2022-09-12 16:22] LABS: Glucose,Whole Blood 261 mg/dL (70-110)
[2022-09-12 16:24] LABS: Glucose,Whole Blood 249 mg/dL (70-110)
[2022-09-12 20:55] LABS: Glucose,Whole Blood 329 mg/dL (70-110)
[2022-09-12] MEDS: INSULIN DETEMIR (LEVEMIR) 100 UNIT/ML SYR SQ SCH (21:14)
[2022-09-13 02:07] LABS: Glucose,Whole Blood 178 mg/dL (70-110)
[2022-09-13] MEDS: INSULIN ASPART (NovoLOG) 100 UNIT/ML VIAL SQ SCH ×5 (02:56→20:52)
[2022-09-13] MEDS: SODIUM CHLORIDE 0.9% 1,000 ML IV SCH ×2 (02:57→14:30)
[2022-09-13 04:54] LABS: HCT 36.8 % (34.0-46.0); HGB 11.9 gm/dL (11.4-16.0); MCH 27.7 pg (25.0-35.0); MCHC 32.4 g/dL (31.0-37.0); MCV 85.3 fL (80.0-100.0); Mean Platelet Volume 14.2; RBC 4.32 m/uL (3.80-5.40); RDW 15.4 % (11.5-15.5); WBC 16.4 k/uL (3.8-10.6)
[2022-09-13 05:13] LABS: Band Neutrophils % 2 %; Lymphocytes # (M) 2.62 k/uL (1.0-4.8); Monocytes # (M) 3.77 k/uL (0-1.0); Neutrophils % (M) 59 %; Nucleated Red Blood Cells 0 /100 WBC (0-0); Total Cells Counted 100
[2022-09-13 05:14] LABS: Platelet Count 97 k/uL (150-450)
[2022-09-13 05:19] LABS: Appearance,BF #CLD
[2022-09-13 05:57] LABS: LDH, Body Fluid Source Pleural Fluid; T. Protein, Body Fluid Source Pleural Fluid; Total Protein, Body Fluid 3100 mg/dL
[2022-09-13 06:24] LABS: Glucose,Whole Blood 51 mg/dL (70-110)
[2022-09-13 06:24] LABS: ALT 11 U/L (4-34); AST 14 U/L (14-36); African American GFR (CKD) >90 (>60 ml/min/1.73 sqM); Albumin 2.7 g/dL (3.5-5.0); Alkaline Phosphatase 88 U/L (38-126); Anion Gap 5 mmol/L; Blood Urea Nitrogen 16 mg/dL (7-17); Calcium 7.4 mg/dL (8.4-10.2); Carbon Dioxide 33 mmol/L (22-30); Chloride 98 mmol/L (98-107); Glucose 86 mg/dL (74-99); Non-African American GFR(CKD) 86 (>60 ml/min/1.73 sqM); Potassium 3.6 mmol/L (3.5-5.1); Sodium 136 mmol/L (137-145); Total Bilirubin 0.4 mg/dL (0.2-1.3); Total Protein 5.1 g/dL (6.3-8.2)
[2022-09-13] MEDS ORDERED: Potassium Replacement Protocol 1 EACH MISC MISCELLANE PRN (06:29)
[2022-09-13 06:44] LABS: Glucose,Whole Blood 72 mg/dL (70-110)
[2022-09-13] MEDS ORDERED: POTASSIUM CHLORIDE ER 20 MEQ TAB.ER PO SCH (07:00)
[2022-09-13] MEDS: HEPARIN SODIUM,PORCINE/PF 5,000 UNIT/0.5 ML SYRINGE SQ SCH ×2 (07:45→20:52)
[2022-09-13] MEDS: IPRATROPIUM-ALBUTEROL 3 ML NEB INHALATION SCH ×4 (08:15→20:12)
[2022-09-13] MEDS: SYMBICORT 160-4.5 MCG INHALER INHALATION SCH ×2 (08:15→20:11)
[2022-09-13] MEDS ORDERED: DEXTROSE 5%-0.45% NACL 1,000 ML IV SCH (09:15)
[2022-09-13] MEDS: BUMETANIDE 0.25 MG/ML 4 ML VIAL IV SCH ×2 (09:20→20:52)
[2022-09-13] MEDS: PANTOPRAZOLE 40 MG/10 ML VIAL IV SCH (09:20)
[2022-09-13 11:32] LABS: LDH, Body Fluid Source Pleural Fluid; T. Protein, Body Fluid Source Pleural Fluid
[2022-09-13 11:36] LABS: Glucose,Whole Blood 137 mg/dL (70-110)
--- NOTE | 2022-09-13 11:59 | P.PN ---
Subjective Progress Note Date: 09/13/22 Principal diagnosis: Bilateral pleural effusions, acute hypoxic and hypercapnic respiratory failure I am seeing this patient in new consultation today 09/11/2022 in the intensive c are unit after the patient experienced a fall yesterday evening resulting in head trauma and a subsequent respiratory arrest. Patient is a 76-year-old white female with past medical history significant for bilateral pleural effusions, oxygen dependent on 5 L/m nasal cannula, COPD, diabetes mellitus type 2, hypertension, hyperlipidemia, hypothyroidism, hydroureternephrosis, and remote history of smoking. Her primary care provider is Dr. Barron. Patient was seen in the office by Dr. Rodgers, for a hospital follow-up. Patient did have a recent hospitalization back in June and again in July of this year. 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 Patient also had large bilateral pleural effusions at that time. Patient did undergo a thoracentesis of the right chest, which showed an exudative effusion based on protein analysis. No cytologically malignant cells were identified. A follow-up bone scan showed focal areas of uptake within the bilateral humeri, distal right tibia segment, ribs, and thoracic spine suggestive of metastatic disease. Oncology was consulted, and the patient did undergo a bone marrow biopsy showing evidence of monoclonal B cell lymphocytosis, non-CLL type. Significance unknown. She has been following with her oncologist, Dr. Connelly. Yesterday evening, the patient was exiting her car in the garage when she "lost her balance", fell landing backwards, and hit her head. She does not remember much after this event. Her apparently heard her yell out and fall. She was reportedly unresponsive, and the did perform CPR. When EMS arrived, the patient was reportedly not effectively breathing, and had to be bagged. She reportedly never lost a pulse. The patient was at her primary care physician office earlier that day, and there were apparently adjustments to her oxygen. She denies any history of seizures, vertigo. She denies any chest pain, heart palpitations, lightheadedness, or prior syncopal episodes. On arrival to the emergency room, the patient was placed on BiPAP. ABGs at that time showed a PaO2 of 180, pCO2 of 59, pH of 7.26. On my evaluation, she is no longer on the BiPAP. The patient is alert, in no acute distress, on 6 L nasal cannula. Chest x-ray on arrival showed bilateral pleural effusions with mild pulmonary vascular congestion. A follow-up chest CTA showed no evidence of pulmonary embolism and redemonstration of the large bilateral pleural effusions and associated atelectasis. CT of the brain and C-spine without contrast showed no acute intracranial abnormalities or evidence of C-spine fracture. There was a small right scapular hematoma. CBC on arrival shows some leukocytosis with a WBC count of 21.6, hemoglobin 11.9, hematocrit 37.8, platelets 120. BMP on arrival shows a sodium 136, potassium 3.4, chloride 99, serum CO2 22, BUN 15, creatinine 0.58, glucose 518. Lactic acid level was elevated at 3.8. Troponin negative 1. NT proBNP low. Patient's vital signs are stable at the moment. Patient was reevaluated today on 09/12/2022, doing well, feeling better today, chest x-ray is showing small bilateral pleural effusions, right more so than left. Yesterday I performed left-sided thoracentesis, and today I performed a right-sided thoracentesis. The fluid from today was sent also for different diagnostic studies, clearly the fluid is exudative in nature. Protein is 3.5 g. Cytology is pending, I believe her effusion is most likely secondary to her underlying monoclonal B cell lymphocytosis unless proven otherwise. Patient continues to have a bit of leukocytosis with the risk of 21.1 hemoglobin is 12. ABG on admission showed a pO2 of 180 pCO2 59 pH of 7.26. Basic metabolic profile is normal, renal profile is normal today after the thoracentesis, I would likely recommend transfer the patient out of the ICU to regular medical floor Patient was reevaluated today on 09/13/2022, continues to do well, she is on 2 L nasal cannula, not in any distress, her IV fluid is running at 75 mL/h. A total level is a bit elevated at 1.37, and she doesn't have leukocytosis, will empirically start the patient on antibiotics although no clear-cut evidence of a source of infection. Pleural effusion cultures are pending, the fluid was exu dative in nature. Will empirically give antibiotics until the cultures are back. So far the Gram stain is negative and the pleural effusion showed no growth in the last 24 hours today were reviewed, she had basically only glucose of 72 no other labs were done today my plan is to transfer the patient out of the ICU to a regular medical floor. Objective - Vital Signs Vital signs: Vital Signs Temp 97.7 F 09/13/22 08:48 Pulse 76 09/13/22 11:28 Resp 16 09/13/22 08:48 BP 115/54 09/13/22 08:48 Pulse Ox 100 09/13/22 08:48 FiO2 60 09/10/22 19:42 Intake & Output 09/12/22 09/13/22 09/13/22 18:59 06:59 18:59 Intake Total 1010 1140 564 Output Total 650 1000 Balance 360 140 564 Weight 50.7 kg 49.9 kg Intake: IV 1010 900 40 Invasive Line 1 10 Invasive Line 3 40 Sodium Chloride 0.9% 1, 900 900 000 ml @ 75 mls/hr IV . [id number] [facility] Rx#:[id number] magnesium 100 Oral 240 524 Output: Urine 650 1000 Other: Voiding Method External Catheter External Catheter External Catheter # Bowel Movements 0 # Emeses 0 - Exam Physical Exam: Revealed 76-year-old female in no distress on 2 L nasal cannula Head: Atraumatic normocephalic. HEENT:[Neck is supple.] [No neck masses.] [No thyromegaly.] [No JVD.] Chest: [Slightly diminished breath sounds at the bases no rhonchi no wheezes Cardiac Exam: [Normal S1 and S2, no S3 gallop, no murmur.] Abdomen: [Soft, nontender, no megaly, no rebound, no guarding, normal bowel sounds.] Extremities: [No clubbing, no edema, no cyanosis.] Neurological Exam: [No focal neurologic deficit.] Alert oriented 3 Psychiatric: Normal mood, affect and normal to status examination. Skin: No rashes. - Labs CBC & Chem 7: 09/13/22 04:40 09/13/22 04:40 Labs: Abnormal Lab Results - Last 24 Hours (Table) 09/12/22 09/12/22 09/12/22 Range/Units 04:10 15:29 16:21 WBC (3.8-10.6) k/uL Plt Count (150-450) k/uL Neutrophils # (Manual) (1.3-7.7) k/uL Monocytes # (Manual) (0-1.0) k/uL Sodium (137-145) mmol/L Carbon Dioxide (22-30) mmol/L POC Glucose (mg/dL) 261 H (70-110) mg/dL Calcium (8.4-10.2) mg/dL C-Reactive Protein 1.6 H (<1.0) mg/dL Total Protein (6.3-8.2) g/dL Albumin (3.5-5.0) g/dL Procalcitonin 1.37 H (0.02-0.09) ng/mL 09/12/22 09/12/22 09/13/22 Range/Units 16:22 20:53 02:06 WBC (3.8-10.6) k/uL Plt Count (150-450) k/uL Neutrophils # (Manual) (1.3-7.7) k/uL Monocytes # (Manual) (0-1.0) k/uL Sodium (137-145) mmol/L Carbon Dioxide (22-30) mmol/L POC Glucose (mg/dL) 249 H 329 H 178 H (70-110) mg/dL Calcium (8.4-10.2) mg/dL C-Reactive Protein (<1.0) mg/dL Total Protein (6.3-8.2) g/dL Albumin (3.5-5.0) g/dL Procalcitonin (0.02-0.09) ng/mL 09/13/22 09/13/22 09/13/22 Range/Units 04:40 04:40 06:20 WBC 16.4 H (3.8-10.6) k/uL Plt Count 97 L (150-450) k/uL Neutrophils # (Manual) 10.00 H (1.3-7.7) k/uL Monocytes # (Manual) 3.77 H (0-1.0) k/uL Sodium 136 L (137-145) mmol/L Carbon Dioxide 33 H (22-30) mmol/L POC Glucose (mg/dL) 51 L (70-110) mg/dL Calcium 7.4 L (8.4-10.2) mg/dL C-Reactive Protein (<1.0) mg/dL Total Protein 5.1 L (6.3-8.2) g/dL Albumin 2.7 L (3.5-5.0) g/dL Procalcitonin (0.02-0.09) ng/mL 09/13/22 Range/Units 11:35 WBC (3.8-10.6) k/uL Plt Count (150-450) k/uL Neutrophils # (Manual) (1.3-7.7) k/uL Monocytes # (Manual) (0-1.0) k/uL Sodium (137-145) mmol/L Carbon Dioxide (22-30) mmol/L POC Glucose (mg/dL) 137 H (70-110) mg/dL Calcium (8.4-10.2) mg/dL C-Reactive Protein (<1.0) mg/dL Total Protein (6.3-8.2) g/dL Albumin (3.5-5.0) g/dL Procalcitonin (0.02-0.09) ng/mL Microbiology - Last 24 Hours (Table) 09/11/22 09:15 Body Fluid Culture - Preliminary Pleural Fluid Assessment and Plan Assessment: Impression: Bilateral pleural effusions, exudative in nature, most likely secondary to her underlying monoclonal B-cell lymphocytosis based on previous bone marrow biopsy. Acute on chronic hypoxic and acute hypercapnic respiratory failure secondary to above Status post bilateral thoracentesis procedures. Type 2 diabetes with no complications. Status post head trauma with right sided scapular hematoma Monoclonal B-cell lymphocytosis and recent bone marrow biopsy Chronic hypoxic respiratory failure on 5 L nasal cannula at home Essential hypertension Hypothyroidism Ex-smoker History of right sided hydronephrosis. Recommendation: Continue present supportive care measures, continue oxygen and titrate accordingly Patient is now status post thoracentesis 2, however I have a feeling that the fluid will keep coming back and I believe is most likely secondary to her underlying bone marrow issues and B-cell lymphocytosis. Transfer patient out of the ICU Oncology to follow and address her primary hematological problem We will continue to follow. Time with Patient: Less than 30
--- NOTE | 2022-09-13 12:31 | P.CONS ---
History of Present Illness - Reason for Consult Consult date: 09/12/22 Leukocytosis Requesting physician: Steve Barron - Chief Complaint Fall and weakness x one day - History of Present Illness Patient is a 76-year-old female with a past medical significant for diabetes mellitus hypertension hyperlipidemia hypothyroidism and the patient did have a blood dyscrasia with elevated white count and concern for possible CML for the patient is currently being monitored by hematology oncology services patient was brought into the hospital 2 days ago from the primary care office after apparently the patient did have a fall patient fell to the ground and hit her head her started CPR, EMS was called and and the patient was sub sequently brought the patient to the hospital patient on presentation to the hospital was afebrile and no fever have been recorded subsequently patient did have white count of 21.6 which was up to 28.9 yesterday down to 21.1 did have a predominantly neutrophils count also with some lymphocytosis platelet count has been 120 to 100,000 did have normal kidney function liver exams has been normal patient did have a CT angiogram of the chest no evidence of PE diffuse large bilateral effusion with associated atelectasis the patient is status post thoracocentesis completed yesterday morning by pulmonary with removal of 2000 cc of straw-colored fluid from the left pleural space which shows a white count of 1067 and did have elevated protein repeat x-ray decrease in size of the right effusion no pneumothorax small to moderate left effusion, patient currently denies having any fever or any chills the patient is breathing comfortably has been complaining of some central chest pain from chest compression otherwise no significant cough or sputum production no nausea vomiting abdominal pain no [place]aco rrhea Review of Systems Positive point and negatives has been mentioned in the HPI, complete review of systems was performed and all other systems are negative Past Medical History Past Medical History: Diabetes Mellitus, Hyperlipidemia, Hypertension, Thyroid Disorder Additional Past Medical History / Comment(s): left leg swells at end of day every day for about a year History of Any Multi-Drug Resistant Organisms: None Reported Past Surgical History: Cholecystectomy Additional Past Surgical History / Comment(s): cholecystectomy, cataract surgery Past Anesthesia/Blood Transfusion Reactions: No Reported Reaction Past Psychological History: No Psychological Hx Reported Smoking Status: Former smoker Past Alcohol Use History: Occasional Past Drug Use History: None Reported - Past Family History Father Family Medical History: Cancer, Prostate Disorder Additional Family Medical History / Comment(s): prostate CA Mother Additional Family Medical History / Comment(s): parkinsons Medications and Allergies Home Medications Medication Instructions Recorded Confirmed Type Simvastatin 40 mg PO HS 07/03/22 09/10/22 History Triamcinolone 0.025% Cream 1 applic TOPICAL DAILY 07/04/22 09/10/22 History [Kenalog 0.025% Cream] Acetaminophen Tab [Tylenol] 650 mg PO Q6HR PRN tab 07/10/22 09/10/22 Rx Levothyroxine Sodium [Synthroid] 125 mcg PO DAILY@0630 90 Days #90 07/10/22 09/10/22 Rx tab Bumetanide [BUMEX] 1 mg PO DAILY 09/10/22 09/10/22 History Ferrous Sulfate [Iron (65 MG 325 mg PO DAILY 09/10/22 09/10/22 History Elemental)] Fluticasone/Umeclidin/Vilanter 1 puff INHALATION RT-DAILY 09/10/22 09/10/22 History [Trelegy Ellipta 200-62.5-25] Loratadine [Claritin] 10 mg PO DAILY 09/10/22 09/10/22 History Montelukast [Singulair] 10 mg PO DAILY 09/10/22 09/10/22 History Omeprazole 40 mg PO DAILY 09/10/22 09/10/22 History Ondansetron [Zofran] 4 mg PO Q6H PRN 09/10/22 09/10/22 History Budesonide-Formot 160-4.5 Mcg 2 puff INHALATION RT-BID each 09/18/22 Rx [Symbicort 160-4.5 Mcg Inhaler] Calcium Carb-Vit D 500Mg-5Mcg 1 each PO BID-W/MEALS tab 09/18/22 Rx [Oscal 500+D 5 Mcg (200 Iu)] Cefdinir [Omnicef] 300 mg PO BID cap 09/18/22 Rx Ipratropium-Albuterol Nebulize 3 ml INHALATION RT-QID each 09/18/22 Rx [Duoneb 0.5 mg-3 mg/3 ml Soln] Magnesium Oxide [Mag-Ox] 400 mg PO BID tab 09/18/22 Rx Allergies Allergy/AdvReac Type Severity Reaction Status Date / Time No Known Allergies Allergy Verified 09/10/22 18:04 Physical Exam Vitals: Vital Signs Temp Pulse Resp BP Pulse Ox 09/12/22 20:01 80 09/12/22 19:48 76 09/12/22 16:00 98.1 F 16 110/59 99 09/12/22 15:29 80 09/12/22 15:19 82 09/12/22 15:00 105/48 09/12/22 14:00 115/58 09/12/22 13:00 109/56 09/12/22 12:00 80 108/53 09/12/22 11:49 80 09/12/22 09:00 71 15 109/51 97 09/12/22 08:08 78 09/12/22 08:00 97.8 F 80 13 106/53 97 09/12/22 07:56 80 95 09/12/22 07:00 68 15 109/47 95 09/12/22 06:00 70 17 107/49 96 09/12/22 05:00 75 21 124/51 95 09/12/22 04:00 79 18 106/51 92 L 09/12/22 03:00 75 17 110/49 95 09/12/22 02:00 60 12 116/52 96 09/12/22 01:00 69 15 118/52 96 09/12/22 00:00 97.9 F 70 12 100/51 96 09/11/22 23:00 74 15 93/46 96 09/11/22 22:00 76 13 102/49 96 09/11/22 21:00 77 17 94/45 97 Intake and Output 09/12/22 09/12/22 09/12/22 06:59 14:59 22:59 Intake Total 600 625 385 Output Total 600 50 Balance 600 25 335 Intake: IV 600 625 385 Invasive Line 1 10 Sodium Chloride 0.9% 1, 600 525 375 000 ml @ 75 mls/hr IV . [id number] [facility] Rx#:[id number] magnesium 100 Output: Urine 600 50 Other: Voiding Method External Catheter External Catheter Weight 50.7 kg 50.7 kg GENERAL DESCRIPTION: Elderly female lying in bed, no distress. No tachypnea or accessory muscle of respiration use. HEENT: Shows Pallor , no scleral icterus. Oral mucous membrane is dry. No pharyngeal erythema or thrush NECK: Trachea central, no thyromegaly. LUNGS: Unlabored breathing. Decreased breath sounds at the base HEART: S1, S2, regular rate and rhythm. ABDOMEN: Soft, no tenderness , guarding or rigidity, no organomegaly EXTREMITIES: No edema of feet. SKIN: No rash, no masses palpable. NEUROLOGICAL: The patient is awake, alert, oriented x3, mood and affect normal. Results CBC & Chem 7: 09/19/22 05:55 09/19/22 05:55 Labs: Abnormal Lab Results - Last 24 Hours (Table) 09/12/22 09/12/22 09/12/22 Range/Units 00:07 03:50 04:10 WBC (3.8-10.6) k/uL MCHC (31.0-37.0) g/dL Plt Count (150-450) k/uL Neutrophils # (Manual) (1.3-7.7) k/uL Lymphocytes # (Manual) (1.0-4.8) k/uL Monocytes # (Manual) (0-1.0) k/uL Glucose (74-99) mg/dL POC Glucose (mg/dL) 138 H 58 L (70-110) mg/dL Hemoglobin A1c 10.7 H (<=6.0) % Calcium (8.4-10.2) mg/dL C-Reactive Protein (<1.0) mg/dL 09/12/22 09/12/22 09/12/22 Range/Units 04:10 04:10 04:21 WBC 21.1 H (3.8-10.6) k/uL MCHC 30.6 L (31.0-37.0) g/dL Plt Count 100 L (150-450) k/uL Neutrophils # (Manual) 14.70 H (1.3-7.7) k/uL Lymphocytes # (Manual) 5.28 H (1.0-4.8) k/uL Monocytes # (Manual) 1.06 H (0-1.0) k/uL Glucose 66 L (74-99) mg/dL POC Glucose (mg/dL) 62 L (70-110) mg/dL Hemoglobin A1c (<=6.0) % Calcium 7.5 L (8.4-10.2) mg/dL C-Reactive Protein (<1.0) mg/dL 09/12/22 09/12/22 09/12/22 Range/Units 05:37 06:37 11:53 WBC (3.8-10.6) k/uL MCHC (31.0-37.0) g/dL Plt Count (150-450) k/uL Neutrophils # (Manual) (1.3-7.7) k/uL Lymphocytes # (Manual) (1.0-4.8) k/uL Monocytes # (Manual) (0-1.0) k/uL Glucose (74-99) mg/dL POC Glucose (mg/dL) 166 H 175 H 120 H (70-110) mg/dL Hemoglobin A1c (<=6.0) % Calcium (8.4-10.2) mg/dL C-Reactive Protein (<1.0) mg/dL 09/12/22 09/12/22 09/12/22 Range/Units 15:29 16:21 16:22 WBC (3.8-10.6) k/uL MCHC (31.0-37.0) g/dL Plt Count (150-450) k/uL Neutrophils # (Manual) (1.3-7.7) k/uL Lymphocytes # (Manual) (1.0-4.8) k/uL Monocytes # (Manual) (0-1.0) k/uL Glucose (74-99) mg/dL POC Glucose (mg/dL) 261 H 249 H (70-110) mg/dL Hemoglobin A1c (<=6.0) % Calcium (8.4-10.2) mg/dL C-Reactive Protein 1.6 H (<1.0) mg/dL Assessment and Plan (1) Leukocytosis Status: Acute Code(s): D72.829 - ELEVATED WHITE BLOOD CELL COUNT, UNSPECIFIED SNOMED Code(s): 020781184 Plan: 1patient with a leukocytosis which is most likely related to underlying blood dyscrasia concerning for possible CML and the patient is being monitored closely by oncology services clinically doubt infectious etiology at this patient currently with no fever does not look toxic patient did have a bilateral effusion more on the left side status post thoracocentesis however the white count is only 1000 clinically doubt empyema patient abdominal soft medical examination and no evidence of any cellulitis or joint swelling 2-we will obtain blood cultures CRP and procalcitonin to complete the work-up 3-as clinic suspicion low for infectious etiology we will hold on adding any systemic antibiotic therapy at this point We will follow on clinical condition and cultures to further adjust medication if needed Thank you for this consultation we will follow the patient along with you Time with Patient: Greater than 30
--- NOTE | 2022-09-13 14:29 | P.PN ---
Subjective Progress Note Date: 09/13/22 Principal diagnosis: Altered mental status, respiratory arrest. In follow-up today patient has no complaints, no pain, respiratory status is stable. She had a left thoracentesis and a right thoracentesis in the previous 2 days. Pleural fluid cytology and flow cytometry is pending. Patient reports her breathing is stable today, no fevers, complaints of generalized weakness and loss of muscle mass. Objective - Vital Signs Vital signs: Vital Signs Temp 97.7 F 09/13/22 08:48 Pulse 76 09/13/22 11:28 Resp 16 09/13/22 08:48 BP 115/54 09/13/22 08:48 Pulse Ox 100 09/13/22 08:48 FiO2 60 09/10/22 19:42 Intake & Output 09/12/22 09/13/22 09/13/22 18:59 06:59 18:59 Intake Total 1010 1140 764 Output Total 650 1000 1050 Balance 360 140 -286 Weight 50.7 kg 49.9 kg 49.9 kg Intake: IV 1010 900 240 Invasive Line 1 10 Invasive Line 3 40 Sodium Chloride 0.9% 1, 900 900 150 000 ml @ 75 mls/hr IV . [id number] [facility] Rx#:[id number] cefTRIAXone 2 gm In 50 Sodium Chloride 0.9% 50 ml @ 100 mls/hr IVPB Q24HR [facility] Rx#:[id number] magnesium 100 Oral 240 524 Output: Urine 650 1000 1050 Other: Voiding Method External Catheter External Catheter External Catheter # Bowel Movements 0 # Emeses 0 - Constitutional General appearance: Present: cooperative, no acute distress, thin - EENT Eyes: Present: anicteric sclerae, EOMI ENT: Present: hearing grossly normal - Respiratory Details: Respirations even and unlabored at rest - Peripheral edema leg Peripheral Edema: bilateral: None - Neurologic Neurologic: Present: CNII-XII intact - Musculoskeletal Musculoskeletal: Present: generalized weakness - Psychiatric Psychiatric: Present: A&O x's 3, appropriate affect, intact judgment & insight - Labs CBC & Chem 7: 09/13/22 04:40 09/13/22 11:13 Labs: Abnormal Lab Results - Last 24 Hours (Table) 09/12/22 09/12/22 09/12/22 Range/Units 04:10 15:29 16:21 WBC (3.8-10.6) k/uL Plt Count (150-450) k/uL Neutrophils # (Manual) (1.3-7.7) k/uL Monocytes # (Manual) (0-1.0) k/uL Sodium (137-145) mmol/L Carbon Dioxide (22-30) mmol/L POC Glucose (mg/dL) 261 H (70-110) mg/dL Calcium (8.4-10.2) mg/dL C-Reactive Protein 1.6 H (<1.0) mg/dL Total Protein (6.3-8.2) g/dL Albumin (3.5-5.0) g/dL Procalcitonin 1.37 H (0.02-0.09) ng/mL 09/12/22 09/12/22 09/13/22 Range/Units 16:22 20:53 02:06 WBC (3.8-10.6) k/uL Plt Count (150-450) k/uL Neutrophils # (Manual) (1.3-7.7) k/uL Monocytes # (Manual) (0-1.0) k/uL Sodium (137-145) mmol/L Carbon Dioxide (22-30) mmol/L POC Glucose (mg/dL) 249 H 329 H 178 H (70-110) mg/dL Calcium (8.4-10.2) mg/dL C-Reactive Protein (<1.0) mg/dL Total Protein (6.3-8.2) g/dL Albumin (3.5-5.0) g/dL Procalcitonin (0.02-0.09) ng/mL 09/13/22 09/13/22 09/13/22 Range/Units 04:40 04:40 06:20 WBC 16.4 H (3.8-10.6) k/uL Plt Count 97 L (150-450) k/uL Neutrophils # (Manual) 10.00 H (1.3-7.7) k/uL Monocytes # (Manual) 3.77 H (0-1.0) k/uL Sodium 136 L (137-145) mmol/L Carbon Dioxide 33 H (22-30) mmol/L POC Glucose (mg/dL) 51 L (70-110) mg/dL Calcium 7.4 L (8.4-10.2) mg/dL C-Reactive Protein (<1.0) mg/dL Total Protein 5.1 L (6.3-8.2) g/dL Albumin 2.7 L (3.5-5.0) g/dL Procalcitonin (0.02-0.09) ng/mL 09/13/22 Range/Units 11:35 WBC (3.8-10.6) k/uL Plt Count (150-450) k/uL Neutrophils # (Manual) (1.3-7.7) k/uL Monocytes # (Manual) (0-1.0) k/uL Sodium (137-145) mmol/L Carbon Dioxide (22-30) mmol/L POC Glucose (mg/dL) 137 H (70-110) mg/dL Calcium (8.4-10.2) mg/dL C-Reactive Protein (<1.0) mg/dL Total Protein (6.3-8.2) g/dL Albumin (3.5-5.0) g/dL Procalcitonin (0.02-0.09) ng/mL Microbiology - Last 24 Hours (Table) 09/11/22 09:15 Body Fluid Culture - Preliminary Pleural Fluid Assessment and Plan (1) Respiratory failure Current Visit: Yes Status: Acute Priority: High Code(s): J96.90 - RESPIRATORY FAILURE, UNSP, UNSP W HYPOXIA OR HYPERCAPNIA SNOMED Code(s): 486151740 (2) Bilateral pleural effusion Current Visit: Yes Status: Chronic Priority: High Code(s): J90 - PLEURAL EFFUSION, NOT ELSEWHERE CLASSIFIED SNOMED Code(s): 532875378 (3) Leukocytosis Current Visit: Yes Status: Chronic Priority: Medium Code(s): D72.829 - ELEVATED WHITE BLOOD CELL COUNT, UNSPECIFIED SNOMED Code(s): 154590289 Plan: Respiratory failure -Patient remains in the intensive care unit, continues to do well. Anticipate transfer to medical floor soon. Pleural effusions -Recurrent. Recurrent effusions typically associated with a malignant cause but, unfortunately, we do not have confirmation of the same-no solid masses, or gross hematological malignancy. Back in June there is a NM bone scan showing multiple bone lesions-may have to consider biopsy of one? Will see how patient is doing much she is out of the ICU. Also, pending cytology and flow cytometry and pleural fluid. -Patient has had left and right thoracentesis, cytology pending, requested flow cytometry and pleural fluid. Leukocytosis -WBC down to 16 today. -Patient's presenting symptoms-pleural effusions were the cause of SOB and likely respiratory arrest. Dr. Jurado, [facility] Conditioning Technician at [facility] [place], has discussed the case with Dr. Connelly and it was not felt that the effusions were 2/2 hematologic findings. Pending examination of the pleural fluid.
[2022-09-13] MEDS: MAGNESIUM SULFATE-D5W PMX 1 GM in DEXTROSE/WATER 1 100ML.BAG IVPB SCH ×2 (14:30→15:48)
[2022-09-13 16:34] LABS: Glucose,Whole Blood 303 mg/dL (70-110)
[2022-09-13 20:47] LABS: Glucose,Whole Blood 326 mg/dL (70-110)
[2022-09-13] MEDS: INSULIN DETEMIR (LEVEMIR) 100 UNIT/ML SYR SQ SCH (20:52)
--- NOTE | 2022-09-13 21:54 | P.PN ---
Subjective Progress Note Date: 09/13/22 Principal diagnosis: Leukocytosis Patient is a 76-year-old female with a past medical significant for diabetes mellitus hypertension hyperlipidemia hypothyroidism and the patient did have a blood dyscrasia with elevated white count and concern for possible CML, presenting to the hospital with weakness and fall noticed to have a pleural effusion status post thoracocentesis which was exudative but white count was not elevated in the pleural fluid. On today's evaluation that is 09/13/2022, the patient denies having any fever or any chills, the patient is breathing comfortably currently on room air, no chest pain or shortness of breath, mild cough no nausea no vomiting no abdominal pain or diarrhea Objective - Vital Signs Vital signs: Vital Signs Temp 97.7 F 09/13/22 08:48 Pulse 76 09/13/22 11:28 Resp 16 09/13/22 08:48 BP 115/54 09/13/22 08:48 Pulse Ox 100 09/13/22 08:48 FiO2 60 09/10/22 19:42 Intake & Output 09/12/22 09/13/22 09/13/22 18:59 06:59 18:59 Intake Total 1010 1140 564 Output Total 650 1000 Balance 360 140 564 Weight 50.7 kg 49.9 kg Intake: IV 1010 900 40 Invasive Line 1 10 Invasive Line 3 40 Sodium Chloride 0.9% 1, 900 900 000 ml @ 75 mls/hr IV . [id number] [facility] Rx#:[id number] magnesium 100 Oral 240 524 Output: Urine 650 1000 Other: Voiding Method External Catheter External Catheter External Catheter # Bowel Movements 0 # Emeses 0 - Exam GENERAL DESCRIPTION: An elderly female lying in bed in no distress RESPIRATORY SYSTEM: Unlabored breathing , decreased breath sounds at bases HEART: S1 S2 regular rate and rhythm , ABDOMEN: Soft , no tenderness EXTREMITIES: No edema feet - Labs CBC & Chem 7: 09/13/22 04:40 09/13/22 11:13 Labs: Abnormal Lab Results - Last 24 Hours (Table) 09/12/22 09/12/22 09/12/22 Range/Units 04:10 15:29 16:21 WBC (3.8-10.6) k/uL Plt Count (150-450) k/uL Neutrophils # (Manual) (1.3-7.7) k/uL Monocytes # (Manual) (0-1.0) k/uL Sodium (137-145) mmol/L Carbon Dioxide (22-30) mmol/L POC Glucose (mg/dL) 261 H (70-110) mg/dL Calcium (8.4-10.2) mg/dL C-Reactive Protein 1.6 H (<1.0) mg/dL Total Protein (6.3-8.2) g/dL Albumin (3.5-5.0) g/dL Procalcitonin 1.37 H (0.02-0.09) ng/mL 09/12/22 09/12/22 09/13/22 Range/Units 16:22 20:53 02:06 WBC (3.8-10.6) k/uL Plt Count (150-450) k/uL Neutrophils # (Manual) (1.3-7.7) k/uL Monocytes # (Manual) (0-1.0) k/uL Sodium (137-145) mmol/L Carbon Dioxide (22-30) mmol/L POC Glucose (mg/dL) 249 H 329 H 178 H (70-110) mg/dL Calcium (8.4-10.2) mg/dL C-Reactive Protein (<1.0) mg/dL Total Protein (6.3-8.2) g/dL Albumin (3.5-5.0) g/dL Procalcitonin (0.02-0.09) ng/mL 09/13/22 09/13/22 09/13/22 Range/Units 04:40 04:40 06:20 WBC 16.4 H (3.8-10.6) k/uL Plt Count 97 L (150-450) k/uL Neutrophils # (Manual) 10.00 H (1.3-7.7) k/uL Monocytes # (Manual) 3.77 H (0-1.0) k/uL Sodium 136 L (137-145) mmol/L Carbon Dioxide 33 H (22-30) mmol/L POC Glucose (mg/dL) 51 L (70-110) mg/dL Calcium 7.4 L (8.4-10.2) mg/dL C-Reactive Protein (<1.0) mg/dL Total Protein 5.1 L (6.3-8.2) g/dL Albumin 2.7 L (3.5-5.0) g/dL Procalcitonin (0.02-0.09) ng/mL 09/13/22 Range/Units 11:35 WBC (3.8-10.6) k/uL Plt Count (150-450) k/uL Neutrophils # (Manual) (1.3-7.7) k/uL Monocytes # (Manual) (0-1.0) k/uL Sodium (137-145) mmol/L Carbon Dioxide (22-30) mmol/L POC Glucose (mg/dL) 137 H (70-110) mg/dL Calcium (8.4-10.2) mg/dL C-Reactive Protein (<1.0) mg/dL Total Protein (6.3-8.2) g/dL Albumin (3.5-5.0) g/dL Procalcitonin (0.02-0.09) ng/mL Microbiology - Last 24 Hours (Table) 09/11/22 09:15 Body Fluid Culture - Preliminary Pleural Fluid Assessment and Plan (1) Leukocytosis Current Visit: Yes Status: Chronic Priority: Medium Code(s): D72.829 - ELEVATED WHITE BLOOD CELL COUNT, UNSPECIFIED SNOMED Code(s): 765661355 Plan: 1patient with a leukocytosis which is most likely related to underlying blood dyscrasia concerning for possible CML and the patient is being monitored closely by oncology services clinically doubt infectious etiology at this patient currently with no fever does not look toxic patient did have a bilateral effusion more on the left side status post thoracocentesis however the white count is only 1000 clinically doubt empyema patient abdominal soft medical examination and no evidence of any cellulitis or joint swelling 2-patient did have blood cultures which are currently pending, patient CRP and procalcitonin were mildly elevated 3-patient had been started on Rocephin to continue while waiting for the cultures to finalize Time with Patient: Less than 30
[2022-09-14] MEDS: INSULIN ASPART (NovoLOG) 100 UNIT/ML VIAL SQ SCH ×5 (02:34→21:57)
[2022-09-14 02:35] LABS: Glucose,Whole Blood 179 mg/dL (70-110)
[2022-09-14] MEDS: SODIUM CHLORIDE 0.9% 1,000 ML IV SCH ×2 (05:41→16:40)
[2022-09-14 06:10] LABS: Glucose,Whole Blood 101 mg/dL (70-110)
[2022-09-14] MEDS: IPRATROPIUM-ALBUTEROL 3 ML NEB INHALATION SCH ×4 (08:36→20:03)
[2022-09-14] MEDS: SYMBICORT 160-4.5 MCG INHALER INHALATION SCH ×2 (08:36→20:03)
[2022-09-14] MEDS: HEPARIN SODIUM,PORCINE/PF 5,000 UNIT/0.5 ML SYRINGE SQ SCH ×2 (08:55→21:56)
[2022-09-14] MEDS: BUMETANIDE 0.25 MG/ML 4 ML VIAL IV SCH ×2 (08:56→21:57)
[2022-09-14] MEDS: PANTOPRAZOLE 40 MG/10 ML VIAL IV SCH (08:56)
[2022-09-14] MEDS ORDERED: MAGNESIUM SULFATE-D5W PMX 1 GM in DEXTROSE/WATER 1 100ML.BAG IVPB ONE (10:00)
[2022-09-14 10:12] LABS: Ionized Calcium 4.2 mg/dL (4.5-5.3)
[2022-09-14 10:17] LABS: African American GFR (CKD) >90 (>60 ml/min/1.73 sqM); Anion Gap 6 mmol/L; Blood Urea Nitrogen 15 mg/dL (7-17); Calcium 7.2 mg/dL (8.4-10.2); Carbon Dioxide 31 mmol/L (22-30); Chloride 97 mmol/L (98-107); Glucose 258 mg/dL (74-99); Non-African American GFR(CKD) 89 (>60 ml/min/1.73 sqM); Potassium 4.5 mmol/L (3.5-5.1); Sodium 134 mmol/L (137-145)
[2022-09-14 10:39] LABS: HGB 12.6 gm/dL (11.4-16.0); MCHC 31.5 g/dL (31.0-37.0); MCV 85.8 fL (80.0-100.0); Mean Platelet Volume 13.8; Platelet Count 100 k/uL (150-450); RBC 4.66 m/uL (3.80-5.40); RDW 15.4 % (11.5-15.5); WBC 15.3 k/uL (3.8-10.6)
[2022-09-14 11:44] LABS: Glucose,Whole Blood 233 mg/dL (70-110)
[2022-09-14 11:52] LABS: Lymphocytes # (M) 1.84 k/uL (1.0-4.8); Monocytes # (M) 1.68 k/uL (0-1.0); Neutrophils # (M) 11.78 k/uL (1.3-7.7); Neutrophils % (M) 77 %; Nucleated Red Blood Cells 0 /100 WBC (0-0); Total Cells Counted 100
--- NOTE | 2022-09-14 13:48 | P.PN ---
Subjective Progress Note Date: 09/14/22 Principal diagnosis: Bilateral pleural effusions, acute hypoxic and hypercapnic respiratory failure I am seeing this patient in new consultation today 09/11/2022 in the intensive c are unit after the patient experienced a fall yesterday evening resulting in head trauma and a subsequent respiratory arrest. Patient is a 76-year-old white female with past medical history significant for bilateral pleural effusions, oxygen dependent on 5 L/m nasal cannula, COPD, diabetes mellitus type 2, hypertension, hyperlipidemia, hypothyroidism, hydroureternephrosis, and remote history of smoking. Her primary care provider is Dr. Barron. Patient was seen in the office by Dr. Rodgers, for a hospital follow-up. Patient did have a recent hospitalization back in June and again in July of this year. 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 Patient also had large bilateral pleural effusions at that time. Patient did undergo a thoracentesis of the right chest, which showed an exudative effusion based on protein analysis. No cytologically malignant cells were identified. A follow-up bone scan showed focal areas of uptake within the bilateral humeri, distal right tibia segment, ribs, and thoracic spine suggestive of metastatic disease. Oncology was consulted, and the patient did undergo a bone marrow biopsy showing evidence of monoclonal B cell lymphocytosis, non-CLL type. Significance unknown. She has been following with her oncologist, Dr. Connelly. Yesterday evening, the patient was exiting her car in the garage when she "lost her balance", fell landing backwards, and hit her head. She does not remember much after this event. Her apparently heard her yell out and fall. She was reportedly unresponsive, and the did perform CPR. When EMS arrived, the patient was reportedly not effectively breathing, and had to be bagged. She reportedly never lost a pulse. The patient was at her primary care physician office earlier that day, and there were apparently adjustments to her oxygen. She denies any history of seizures, vertigo. She denies any chest pain, heart palpitations, lightheadedness, or prior syncopal episodes. On arrival to the emergency room, the patient was placed on BiPAP. ABGs at that time showed a PaO2 of 180, pCO2 of 59, pH of 7.26. On my evaluation, she is no longer on the BiPAP. The patient is alert, in no acute distress, on 6 L nasal cannula. Chest x-ray on arrival showed bilateral pleural effusions with mild pulmonary vascular congestion. A follow-up chest CTA showed no evidence of pulmonary embolism and redemonstration of the large bilateral pleural effusions and associated atelectasis. CT of the brain and C-spine without contrast showed no acute intracranial abnormalities or evidence of C-spine fracture. There was a small right scapular hematoma. CBC on arrival shows some leukocytosis with a WBC count of 21.6, hemoglobin 11.9, hematocrit 37.8, platelets 120. BMP on arrival shows a sodium 136, potassium 3.4, chloride 99, serum CO2 22, BUN 15, creatinine 0.58, glucose 518. Lactic acid level was elevated at 3.8. Troponin negative 1. NT proBNP low. Patient's vital signs are stable at the moment. Patient was reevaluated today on 09/12/2022, doing well, feeling better today, chest x-ray is showing small bilateral pleural effusions, right more so than left. Yesterday I performed left-sided thoracentesis, and today I performed a right-sided thoracentesis. The fluid from today was sent also for different diagnostic studies, clearly the fluid is exudative in nature. Protein is 3.5 g. Cytology is pending, I believe her effusion is most likely secondary to her underlying monoclonal B cell lymphocytosis unless proven otherwise. Patient continues to have a bit of leukocytosis with the risk of 21.1 hemoglobin is 12. ABG on admission showed a pO2 of 180 pCO2 59 pH of 7.26. Basic metabolic profile is normal, renal profile is normal today after the thoracentesis, I would likely recommend transfer the patient out of the ICU to regular medical floor Patient was reevaluated today on 09/13/2022, continues to do well, she is on 2 L nasal cannula, not in any distress, her IV fluid is running at 75 mL/h. A total level is a bit elevated at 1.37, and she doesn't have leukocytosis, will empirically start the patient on antibiotics although no clear-cut evidence of a source of infection. Pleural effusion cultures are pending, the fluid was exu dative in nature. Will empirically give antibiotics until the cultures are back. So far the Gram stain is negative and the pleural effusion showed no growth in the last 24 hours today were reviewed, she had basically only glucose of 72 no other labs were done today my plan is to transfer the patient out of the ICU to a regular medical floor. Reevaluated today on 09/14/2022, patient is doing well, she is now on room air, not in any distress, she is an overflow and the ICU. Cytology is nondiagnostic, discussed her findings with the pathologist, and he recommended that hematology/oncology orders more markers for evaluation of whether the findings in the pleural fluid are related to her macrocytosis and lymphoproliferative disorder. Apparently the patient will need further molecular studies on the cell block to determine whether this fluid is related to her hematologic issue. Will notify hematology/oncology to address this issue with the pathologist. Labs today are basically unremarkable including basic metabolic profile and CBC. From my perspective the patient could be discharged home and could have follow- up on outpatient basis with Dr. Rodgers and with hematology/oncology Objective - Vital Signs Vital signs: Vital Signs Temp 98.2 F 09/14/22 07:22 Pulse 77 09/14/22 12:02 Resp 16 09/14/22 07:22 BP 121/60 09/14/22 07:22 Pulse Ox 96 09/14/22 07:22 FiO2 60 09/10/22 19:42 Intake & Output 09/13/22 09/14/22 09/14/22 18:59 06:59 18:59 Intake Total 2958 910 1484 Output Total 1300 1300 650 Balance 1658 -390 834 Weight 49.9 kg 51.7 kg Intake: IV 5177 663 6631 Invasive Line 3 50 10 10 Magnesium Sulfate-D5w Pmx 200 100 1 gm In Dextrose/Water 1 100ml.bag @ 100 mls/hr IVPB Q1H [facility] Rx#: [id number] Sodium Chloride 0.9% 1, 900 900 900 000 ml @ 75 mls/hr IV . [id number] [facility] Rx#:[id number] cefTRIAXone 2 gm In 50 Sodium Chloride 0.9% 50 ml @ 100 mls/hr IVPB Q24HR [facility] Rx#:[id number] Oral 1758 474 Output: Urine 1300 1300 650 Other: Voiding Method External Catheter External Catheter External Catheter # Bowel Movements 0 0 # Emeses 0 - Exam Physical Exam: Revealed 76-year-old female in no distress on room air Head: Atraumatic normocephalic. HEENT:[Neck is supple.] [No neck masses.] [No thyromegaly.] [No JVD.] Chest: [Slightly diminished breath sounds at the bases no rhonchi no wheezes Cardiac Exam: [Normal S1 and S2, no S3 gallop, no murmur.] Abdomen: [Soft, nontender, no megaly, no rebound, no guarding, normal bowel sounds.] Extremities: [No clubbing, no edema, no cyanosis.] Neurological Exam: [No focal neurologic deficit.] Alert oriented 3 Psychiatric: Normal mood, affect and normal to status examination. Skin: No rashes. - Labs CBC & Chem 7: 09/14/22 09:57 09/14/22 09:57 Labs: Abnormal Lab Results - Last 24 Hours (Table) 09/13/22 09/13/22 09/14/22 Range/Units 16:33 20:46 02:33 WBC (3.8-10.6) k/uL Plt Count (150-450) k/uL Neutrophils # (Manual) (1.3-7.7) k/uL Monocytes # (Manual) (0-1.0) k/uL Sodium (137-145) mmol/L Chloride (98-107) mmol/L Carbon Dioxide (22-30) mmol/L Glucose (74-99) mg/dL POC Glucose (mg/dL) 303 H 326 H 179 H (70-110) mg/dL Calcium (8.4-10.2) mg/dL Ionized Calcium Eb (4.5-5.3) mg/dL 09/14/22 09/14/22 09/14/22 Range/Units 09:57 09:57 11:43 WBC 15.3 H (3.8-10.6) k/uL Plt Count 100 L (150-450) k/uL Neutrophils # (Manual) 11.78 H (1.3-7.7) k/uL Monocytes # (Manual) 1.68 H (0-1.0) k/uL Sodium 134 L (137-145) mmol/L Chloride 97 L (98-107) mmol/L Carbon Dioxide 31 H (22-30) mmol/L Glucose 258 H (74-99) mg/dL POC Glucose (mg/dL) 233 H (70-110) mg/dL Calcium 7.2 L (8.4-10.2) mg/dL Ionized Calcium Eb 4.2 L (4.5-5.3) mg/dL Microbiology - Last 24 Hours (Table) 09/12/22 08:45 Body Fluid Culture - Preliminary Pleural Fluid 09/11/22 09:15 Gram Stain - Preliminary Pleural Fluid Body Fluid Culture - Preliminary Assessment and Plan Assessment: Impression: Bilateral pleural effusions, exudative in nature, most likely secondary to her underlying monoclonal B-cell lymphocytosis based on previous bone marrow biopsy. Acute on chronic hypoxic and acute hypercapnic respiratory failure secondary to above Status post bilateral thoracentesis procedures. Type 2 diabetes with no complications. Status post head trauma with right sided scapular hematoma Monoclonal B-cell lymphocytosis and recent bone marrow biopsy Chronic hypoxic respiratory failure on 5 L nasal cannula at home Essential hypertension Hypothyroidism Ex-smoker History of right sided hydronephrosis. Recommendation: Hematology/oncology to discuss with pathology having more bilateral studies on the cell block from the pleural effusion In the meantime consider discharge planning and follow-up on outpatient basis with Dr. Rodgers and with hematology/oncology Transfer patient out of the ICU to regular medical floor unless the patient is discharged home by the admitting physician Continue present supportive care measures, continue oxygen and titrate accordingly Oncology to follow and address her primary hematological problem We will continue to follow. Time with Patient: Less than 30
--- NOTE | 2022-09-14 15:16 | P.PN ---
Subjective Progress Note Date: 09/13/22 Principal diagnosis: Status post fall with posterior head trauma and right-sided scapular hematoma Bilateral pleural effusion Acute on chronic hypoxic respiratory failure related to above Hypertension hypertensive cardiovascular disease Extensive history of smoking and it was Electrolyte imbalance with hypomagnesemia and 09/13/2022, patient seen and evaluated examined in ICU, patient is a 76-year-old female status post fall with bilateral pleural effusion has acute on chronic hypoxic respiratory failure underwent bilateral thoracentesis see operative note for details. Patient also has diabetes dyslipidemia hypothyroidism and blood dyscrasia suspicion of CML there to be evaluated by the hematology oncology. Today on evaluation she is on room air denies any chest pain is slightly confused hemodynamically stable Objective - Vital Signs Vital signs: Vital Signs Temp 97.7 F 09/13/22 08:48 Pulse 80 09/13/22 08:48 Resp 16 09/13/22 08:48 BP 115/54 09/13/22 08:48 Pulse Ox 100 09/13/22 08:48 FiO2 60 09/10/22 19:42 Intake & Output 09/12/22 09/13/22 09/13/22 18:59 06:59 18:59 Intake Total 1010 1140 Output Total 650 1000 Balance 360 140 Weight 50.7 kg 49.9 kg Intake: IV 1010 900 Invasive Line 1 10 Sodium Chloride 0.9% 1, 900 900 000 ml @ 75 mls/hr IV . [id number] [facility] Rx#:[id number] magnesium 100 Oral 240 Output: Urine 650 1000 Other: Voiding Method External Catheter External Catheter - Constitutional Constitutional Comment(s): - Constitutional General appearance: Present: cooperative, no acute distress, thin - EENT Eyes: Present: anicteric sclerae, EOMI ENT: Present: hearing grossly normal - Respiratory Details: Respirations even and unlabored at rest - Peripheral edema leg Peripheral Edema: bilateral: None - Neurologic Neurologic: Present: CNII-XII intact - Musculoskeletal Musculoskeletal: Present: generalized weakness - Psychiatric Psychiatric: Present: A&O x's 3, appropriate affect, intact judgment & insight - Labs CBC & Chem 7: 09/14/22 09:57 09/14/22 09:57 Labs: Abnormal Lab Results - Last 24 Hours (Table) 09/12/22 09/12/22 09/12/22 Range/Units 04:10 04:10 11:53 WBC (3.8-10.6) k/uL Plt Count (150-450) k/uL Neutrophils # (Manual) (1.3-7.7) k/uL Monocytes # (Manual) (0-1.0) k/uL Sodium (137-145) mmol/L Carbon Dioxide (22-30) mmol/L POC Glucose (mg/dL) 120 H (70-110) mg/dL Hemoglobin A1c 10.7 H (<=6.0) % Calcium (8.4-10.2) mg/dL C-Reactive Protein (<1.0) mg/dL Total Protein (6.3-8.2) g/dL Albumin (3.5-5.0) g/dL Procalcitonin 1.37 H (0.02-0.09) ng/mL 09/12/22 09/12/22 09/12/22 Range/Units 15:29 16:21 16:22 WBC (3.8-10.6) k/uL Plt Count (150-450) k/uL Neutrophils # (Manual) (1.3-7.7) k/uL Monocytes # (Manual) (0-1.0) k/uL Sodium (137-145) mmol/L Carbon Dioxide (22-30) mmol/L POC Glucose (mg/dL) 261 H 249 H (70-110) mg/dL Hemoglobin A1c (<=6.0) % Calcium (8.4-10.2) mg/dL C-Reactive Protein 1.6 H (<1.0) mg/dL Total Protein (6.3-8.2) g/dL Albumin (3.5-5.0) g/dL Procalcitonin (0.02-0.09) ng/mL 09/12/22 09/13/22 09/13/22 Range/Units 20:53 02:06 04:40 WBC 16.4 H (3.8-10.6) k/uL Plt Count 97 L (150-450) k/uL Neutrophils # (Manual) 10.00 H (1.3-7.7) k/uL Monocytes # (Manual) 3.77 H (0-1.0) k/uL Sodium (137-145) mmol/L Carbon Dioxide (22-30) mmol/L POC Glucose (mg/dL) 329 H 178 H (70-110) mg/dL Hemoglobin A1c (<=6.0) % Calcium (8.4-10.2) mg/dL C-Reactive Protein (<1.0) mg/dL Total Protein (6.3-8.2) g/dL Albumin (3.5-5.0) g/dL Procalcitonin (0.02-0.09) ng/mL 09/13/22 09/13/22 Range/Units 04:40 06:20 WBC (3.8-10.6) k/uL Plt Count (150-450) k/uL Neutrophils # (Manual) (1.3-7.7) k/uL Monocytes # (Manual) (0-1.0) k/uL Sodium 136 L (137-145) mmol/L Carbon Dioxide 33 H (22-30) mmol/L POC Glucose (mg/dL) 51 L (70-110) mg/dL Hemoglobin A1c (<=6.0) % Calcium 7.4 L (8.4-10.2) mg/dL C-Reactive Protein (<1.0) mg/dL Total Protein 5.1 L (6.3-8.2) g/dL Albumin 2.7 L (3.5-5.0) g/dL Procalcitonin (0.02-0.09) ng/mL Assessment and Plan Assessment: Status post fall with posterior head trauma and right-sided scapular hematoma Bilateral pleural effusion Acute on chronic hypoxic respiratory failure related to above Hypertension hypertensive cardiovascular disease Extensive history of smoking and it was Electrolyte imbalance with hypomagnesemia and hypocalcemia Plan: Consider replace magnesium and calcium Continue monitor fall precautions Monitor observe for reaccumulation of pleural fluid pulmonary ID and hemoglobin following Continue Accu-Cheks before meals and at bedtime Long-acting insulin Levemir dose can be reduced morning hypoglycemia Continue gentle diuresis Bronchodilators Broad-spectrum antibiotics Consider IV fluids to Hep-Lock Time with Patient: Greater than 30
--- NOTE | 2022-09-14 15:18 | P.PN ---
Subjective Progress Note Date: 09/14/22 Principal diagnosis: Status post fall with posterior head trauma and right-sided scapular hematoma Bilateral pleural effusion Acute on chronic hypoxic respiratory failure related to above Hypertension hypertensive cardiovascular disease Extensive history of smoking and it was Electrolyte imbalance with hypomagnesemia and 09/14/2022, patient seen eval examined during rounds sitting upright in the chair on room air breathing comfortably hemodynamic status stable, discussed with RN patient will be started on oral magnesium and calcium replacement, dose of long-acting insulin is been reduced, continue broad-spectrum antibiotics and bronchodilators, white cell count 15.3 with stable hemoglobin and hematocrit 09/13/2022, patient seen and evaluated examined in ICU, patient is a 76-year-old female status post fall with bilateral pleural effusion has acute on chronic hy poxic respiratory failure underwent bilateral thoracentesis see operative note for details. Patient also has diabetes dyslipidemia hypothyroidism and blood dyscrasia suspicion of CML there to be evaluated by the hematology oncology. Today on evaluation she is on room air denies any chest pain is slightly confused hemodynamically stable Objective - Vital Signs Vital signs: Vital Signs Temp 98.2 F 09/14/22 07:22 Pulse 77 09/14/22 12:02 Resp 16 09/14/22 07:22 BP 121/60 09/14/22 07:22 Pulse Ox 96 09/14/22 07:22 FiO2 60 09/10/22 19:42 Intake & Output 09/13/22 09/14/22 09/14/22 18:59 06:59 18:59 Intake Total 2958 910 1484 Output Total 1300 1300 650 Balance 1658 -390 834 Weight 49.9 kg 51.7 kg Intake: IV 8354 919 6524 Invasive Line 3 50 10 10 Magnesium Sulfate-D5w Pmx 200 100 1 gm In Dextrose/Water 1 100ml.bag @ 100 mls/hr IVPB Q1H [facility] Rx#: [id number] Sodium Chloride 0.9% 1, 900 900 900 000 ml @ 75 mls/hr IV . [id number] [facility] Rx#:[id number] cefTRIAXone 2 gm In 50 Sodium Chloride 0.9% 50 ml @ 100 mls/hr IVPB Q24HR [facility] Rx#:[id number] Oral [id number] 474 Output: Urine 1300 1300 650 Other: Voiding Method External Catheter External Catheter External Catheter # Bowel Movements 0 0 # Emeses 0 - Exam - Constitutional Constitutional Comment(s): - Constitutional General appearance: Present: cooperative, no acute distress, thin - EENT Eyes: Present: anicteric sclerae, EOMI ENT: Present: hearing grossly normal - Respiratory Details: Respirations even and unlabored at rest - Peripheral edema leg Peripheral Edema: bilateral: None - Neurologic Neurologic: Present: CNII-XII intact - Musculoskeletal Musculoskeletal: Present: generalized weakness - Psychiatric Psychiatric: Present: A&O x's 3, appropriate affect, intact judgment & insight - Labs CBC & Chem 7: 09/14/22 09:57 09/14/22 09:57 Labs: Abnormal Lab Results - Last 24 Hours (Table) 09/13/22 09/13/22 09/14/22 Range/Units 16:33 20:46 02:33 WBC (3.8-10.6) k/uL Plt Count (150-450) k/uL Neutrophils # (Manual) (1.3-7.7) k/uL Monocytes # (Manual) (0-1.0) k/uL Sodium (137-145) mmol/L Chloride (98-107) mmol/L Carbon Dioxide (22-30) mmol/L Glucose (74-99) mg/dL POC Glucose (mg/dL) 303 H 326 H 179 H (70-110) mg/dL Calcium (8.4-10.2) mg/dL Ionized Calcium Eb (4.5-5.3) mg/dL 09/14/22 09/14/22 09/14/22 Range/Units 09:57 09:57 11:43 WBC 15.3 H (3.8-10.6) k/uL Plt Count 100 L (150-450) k/uL Neutrophils # (Manual) 11.78 H (1.3-7.7) k/uL Monocytes # (Manual) 1.68 H (0-1.0) k/uL Sodium 134 L (137-145) mmol/L Chloride 97 L (98-107) mmol/L Carbon Dioxide 31 H (22-30) mmol/L Glucose 258 H (74-99) mg/dL POC Glucose (mg/dL) 233 H (70-110) mg/dL Calcium 7.2 L (8.4-10.2) mg/dL Ionized Calcium Eb 4.2 L (4.5-5.3) mg/dL Microbiology - Last 24 Hours (Table) 09/12/22 08:45 Body Fluid Culture - Preliminary Pleural Fluid 09/11/22 09:15 Gram Stain - Preliminary Pleural Fluid Body Fluid Culture - Preliminary Assessment and Plan Assessment: Status post fall with posterior head trauma and right-sided scapular hematoma Bilateral pleural effusion Acute on chronic hypoxic respiratory failure related to above Hypertension hypertensive cardiovascular disease Extensive history of smoking and it was Electrolyte imbalance with hypomagnesemia and hypocalcemia Plan: Consider replace magnesium and calcium Continue monitor fall precautions Monitor observe for reaccumulation of pleural fluid pulmonary ID and hemoglobin following Continue Accu-Cheks before meals and at bedtime Long-acting insulin Levemir dose can be reduced morning hypoglycemia Continue gentle diuresis Bronchodilators Broad-spectrum antibiotics Consider IV fluids to Hep-Lock Time with Patient: Greater than 30
--- NOTE | 2022-09-14 15:39 | P.PN ---
Subjective Progress Note Date: 09/14/22 Principal diagnosis: Leukocytosis Patient is a 76-year-old female with a past medical significant for diabetes mellitus hypertension hyperlipidemia hypothyroidism and the patient did have a blood dyscrasia with elevated white count and concern for possible CML, presenting to the hospital with weakness and fall noticed to have a pleural effusion status post thoracocentesis which was exudative but white count was not elevated in the pleural fluid. On today's evaluation that is 09/14/2022, the patient remains to be afebrile, the patient is breathing comfortably on room air, the patient chest pain or shortness of breath, mild cough no nausea no vomiting no abdominal pain or diarrhea, the patient was noticed to have some bruising to the left upper extremity but denies any pain did have a previous IV at that site Objective - Vital Signs Vital signs: Vital Signs Temp 98.2 F 09/14/22 07:22 Pulse 78 09/14/22 11:52 Resp 16 09/14/22 07:22 BP 121/60 09/14/22 07:22 Pulse Ox 96 09/14/22 07:22 FiO2 60 09/10/22 19:42 Intake & Output 09/13/22 09/14/22 09/14/22 18:59 06:59 18:59 Intake Total 2958 910 1484 Output Total 1300 1300 650 Balance 1658 -390 834 Weight 49.9 kg 51.7 kg Intake: IV 1301 256 6808 Invasive Line 3 50 10 10 Magnesium Sulfate-D5w Pmx 200 100 1 gm In Dextrose/Water 1 100ml.bag @ 100 mls/hr IVPB Q1H [facility] Rx#: [id number] Sodium Chloride 0.9% 1, 900 900 900 000 ml @ 75 mls/hr IV . [id number] [facility] Rx#:[id number] cefTRIAXone 2 gm In 50 Sodium Chloride 0.9% 50 ml @ 100 mls/hr IVPB Q24HR [facility] Rx#:[id number] Oral 1758 474 Output: Urine 1300 1300 650 Other: Voiding Method External Catheter External Catheter External Catheter # Bowel Movements 0 0 # Emeses 0 - Exam GENERAL DESCRIPTION: An elderly female lying in bed in no distress RESPIRATORY SYSTEM: Unlabored breathing , decreased breath sounds at bases HEART: S1 S2 regular rate and rhythm , ABDOMEN: Soft , no tenderness EXTREMITIES: Left upper extremity with minimal bruising, no significant redness or warmth - Labs CBC & Chem 7: 09/14/22 09:57 09/14/22 09:57 Labs: Abnormal Lab Results - Last 24 Hours (Table) 09/13/22 09/13/22 09/14/22 Range/Units 16:33 20:46 02:33 WBC (3.8-10.6) k/uL Plt Count (150-450) k/uL Neutrophils # (Manual) (1.3-7.7) k/uL Monocytes # (Manual) (0-1.0) k/uL Sodium (137-145) mmol/L Chloride (98-107) mmol/L Carbon Dioxide (22-30) mmol/L Glucose (74-99) mg/dL POC Glucose (mg/dL) 303 H 326 H 179 H (70-110) mg/dL Calcium (8.4-10.2) mg/dL Ionized Calcium Eb (4.5-5.3) mg/dL 09/14/22 09/14/22 09/14/22 Range/Units 09:57 09:57 11:43 WBC 15.3 H (3.8-10.6) k/uL Plt Count 100 L (150-450) k/uL Neutrophils # (Manual) 11.78 H (1.3-7.7) k/uL Monocytes # (Manual) 1.68 H (0-1.0) k/uL Sodium 134 L (137-145) mmol/L Chloride 97 L (98-107) mmol/L Carbon Dioxide 31 H (22-30) mmol/L Glucose 258 H (74-99) mg/dL POC Glucose (mg/dL) 233 H (70-110) mg/dL Calcium 7.2 L (8.4-10.2) mg/dL Ionized Calcium Eb 4.2 L (4.5-5.3) mg/dL Microbiology - Last 24 Hours (Table) 09/12/22 08:45 Body Fluid Culture - Preliminary Pleural Fluid 09/11/22 09:15 Gram Stain - Preliminary Pleural Fluid Body Fluid Culture - Preliminary Assessment and Plan (1) Leukocytosis Current Visit: Yes Status: Chronic Priority: Medium Code(s): D72.829 - ELEVATED WHITE BLOOD CELL COUNT, UNSPECIFIED SNOMED Code(s): 672133041 Plan: 1patient with a leukocytosis which is most likely related to underlying blood dyscrasia concerning for possible CML and the patient is being monitored closely by oncology services clinically doubt infectious etiology at this patient currently with no fever does not look toxic patient did have a bilateral effusion more on the left side status post thoracocentesis however the white count is only 1000 clinically doubt empyema patient abdominal soft medical examination and no evidence of any cellulitis or joint swelling 2-patient did have blood cultures which are currently pending, patient CRP and procalcitonin were mildly elevated 3-patient white count is down to 15,000, patient to continue with Rocephin while waiting for the cultures to finalize Time with Patient: Less than 30
[2022-09-14 16:24] LABS: Glucose,Whole Blood 405 mg/dL (70-110)
--- NOTE | 2022-09-14 16:29 | P.PN ---
Subjective Progress Note Date: 09/14/22 Principal diagnosis: hx CMML, pleural effusions, GRACE At today's visit patient is resting completely in bedside chair. Patient continues to do well. Denies shortness of breath at this time. Breathing is even and unlabored. Denies pain. Objective - Vital Signs Vital signs: Vital Signs Temp 98.2 F 09/14/22 07:22 Pulse 75 09/14/22 15:45 Resp 16 09/14/22 07:22 BP 121/60 09/14/22 07:22 Pulse Ox 96 09/14/22 07:22 FiO2 60 09/10/22 19:42 Intake & Output 09/13/22 09/14/22 09/14/22 18:59 06:59 18:59 Intake Total 2958 910 1484 Output Total 1300 1300 650 Balance 1658 -390 834 Weight 49.9 kg 51.7 kg Intake: IV 1339 834 7991 Invasive Line 3 50 10 10 Magnesium Sulfate-D5w Pmx 200 100 1 gm In Dextrose/Water 1 100ml.bag @ 100 mls/hr IVPB Q1H [facility] Rx#: [id number] Sodium Chloride 0.9% 1, 900 900 900 000 ml @ 75 mls/hr IV . [id number] [facility] Rx#:[id number] cefTRIAXone 2 gm In 50 Sodium Chloride 0.9% 50 ml @ 100 mls/hr IVPB Q24HR [facility] Rx#:[id number] Oral 1758 474 Output: Urine 1300 1300 650 Other: Voiding Method External Catheter External Catheter External Catheter # Bowel Movements 0 0 # Emeses 0 - Constitutional General appearance: Present: average body habitus, no acute distress - EENT Eyes: Present: anicteric sclerae, EOMI ENT: Present: hearing grossly normal - Respiratory Details: breathing is even and unlabored - Cardiovascular Details: skin warm and dry - Integumentary Integumentary: Absent: cyanotic, rash - Neurologic Neurologic: Present: CNII-XII intact - Musculoskeletal Musculoskeletal: Present: strength equal bilaterally - Psychiatric Psychiatric: Present: A&O x's 3, appropriate affect, intact judgment & insight - Labs CBC & Chem 7: 09/14/22 09:57 09/14/22 09:57 Labs: Abnormal Lab Results - Last 24 Hours (Table) 09/13/22 09/13/22 09/14/22 Range/Units 16:33 20:46 02:33 WBC (3.8-10.6) k/uL Plt Count (150-450) k/uL Neutrophils # (Manual) (1.3-7.7) k/uL Monocytes # (Manual) (0-1.0) k/uL Sodium (137-145) mmol/L Chloride (98-107) mmol/L Carbon Dioxide (22-30) mmol/L Glucose (74-99) mg/dL POC Glucose (mg/dL) 303 H 326 H 179 H (70-110) mg/dL Calcium (8.4-10.2) mg/dL Ionized Calcium Eb (4.5-5.3) mg/dL 09/14/22 09/14/22 09/14/22 Range/Units 09:57 09:57 11:43 WBC 15.3 H (3.8-10.6) k/uL Plt Count 100 L (150-450) k/uL Neutrophils # (Manual) 11.78 H (1.3-7.7) k/uL Monocytes # (Manual) 1.68 H (0-1.0) k/uL Sodium 134 L (137-145) mmol/L Chloride 97 L (98-107) mmol/L Carbon Dioxide 31 H (22-30) mmol/L Glucose 258 H (74-99) mg/dL POC Glucose (mg/dL) 233 H (70-110) mg/dL Calcium 7.2 L (8.4-10.2) mg/dL Ionized Calcium Eb 4.2 L (4.5-5.3) mg/dL Microbiology - Last 24 Hours (Table) 09/12/22 08:45 Body Fluid Culture - Preliminary Pleural Fluid 09/11/22 09:15 Gram Stain - Preliminary Pleural Fluid Body Fluid Culture - Preliminary Assessment and Plan (1) Respiratory failure Current Visit: Yes Status: Acute Priority: High Code(s): J96.90 - RESPIR ATORY FAILURE, UNSP, UNSP W HYPOXIA OR HYPERCAPNIA SNOMED Code(s): 750984577 (2) Bilateral pleural effusion Current Visit: Yes Status: Chronic Priority: High Code(s): J90 - PLEURAL EFFUSION, NOT ELSEWHERE CLASSIFIED SNOMED Code(s): 845501860 Plan: Respiratory failure -Patient remains in the intensive care unit, continues to do well. 96% RA. Anticipate transfer to medical floor soon. Pleural effusions -Recurrent effusions typically associated with a malignant cause but, unfortunately, we do not have confirmation of the same-no solid masses, or gross hematological malignancy. Back in June there is a NM bone scan showing multiple bone lesions-may have to consider biopsy. Will see how patient is doing once she is out of the ICU. -Cytology of pleural fluid specimens negative for malignancy. Leukocytosis -WBC 16.4 today. Monocytes elevated at 1.68, 3.7 yesterday. Will order C-KIT mutation and tryptase on pleural fluid to r/o mastocytosis. Flow cytometry on pleural fluid, blasts and B and T lymphocyte panel pending -Patient's presenting symptoms-pleural effusions were the cause of SOB and likely respiratory arrest. Dr. Jurado, [facility] at [facility], has discussed the case with Dr. Connelly and it was not felt that the effusions were 2/2 hematologic findings. -Pleural fluid culture negative after 24 hours -Continues on rocephin
[2022-09-14] MEDS: CALCIUM CARB-VIT D 500 MG-5 MCG TAB PO SCH (18:02)
[2022-09-14 20:39] LABS: Glucose,Whole Blood 445 mg/dL (70-110)
[2022-09-14] MEDS ORDERED: INSULIN ASPART (NovoLOG) 100 UNIT/ML VIAL SQ ONE (21:09)
[2022-09-14] MEDS: MAGNESIUM OXIDE 400 MG TAB PO SCH (21:56)
[2022-09-14] MEDS: INSULIN DETEMIR (LEVEMIR) 100 UNIT/ML SYR SQ SCH (21:57)
[2022-09-15 02:52] LABS: Glucose,Whole Blood 75 mg/dL (70-110)
[2022-09-15] MEDS: INSULIN ASPART (NovoLOG) 100 UNIT/ML VIAL SQ SCH ×5 (03:08→20:43)
[2022-09-15 07:44] LABS: Glucose,Whole Blood 72 mg/dL (70-110)
[2022-09-15] MEDS: SODIUM CHLORIDE 0.9% 1,000 ML IV SCH ×2 (08:39→20:43)
[2022-09-15] MEDS: CALCIUM CARB-VIT D 500 MG-5 MCG TAB PO SCH ×2 (08:40→17:54)
[2022-09-15] MEDS: HEPARIN SODIUM,PORCINE/PF 5,000 UNIT/0.5 ML SYRINGE SQ SCH ×2 (08:40→20:43)
[2022-09-15] MEDS: MAGNESIUM OXIDE 400 MG TAB PO SCH ×2 (08:40→20:43)
[2022-09-15] MEDS: PANTOPRAZOLE 40 MG/10 ML VIAL IV SCH (08:41)
[2022-09-15] MEDS: IPRATROPIUM-ALBUTEROL 3 ML NEB INHALATION SCH ×4 (09:09→20:06)
[2022-09-15] MEDS: SYMBICORT 160-4.5 MCG INHALER INHALATION SCH ×2 (09:09→20:06)
--- NOTE | 2022-09-15 10:32 | P.PN ---
Subjective Progress Note Date: 09/15/22 Principal diagnosis: Status post fall with posterior head trauma and right-sided scapular hematoma Bilateral pleural effusion Acute on chronic hypoxic respiratory failure related to above Hypertension hypertensive cardiovascular disease Extensive history of smoking and it was Electrolyte imbalance with hypomagnesemia and 09/15/2022, patient sitting upright in the bed, denies any chest pain, still have generalized weakness with inability to get herself up by herself, patient remains on room air saturation is 95%, remains afebrile, hemodynamic status stable patient likely will need to be placed fpc or rehab continue PT OT will involve case management as well, labs are not done today will order that of CBC and BMP for tomorrow currently patient is on Bumex 1 mg IV every 12 changed to by mouth continue replacement with calcium and magnesium, continue broad-spectrum antibiotics, along with bronchodilators for DVT prophylaxis and sliding scale insulin with long-acting. Patient has very labile sugar so long- acting insulin is being cut off and monitor sugars are low 09/14/2022, patient seen eval examined during rounds sitting upright in the chair on room air breathing comfortably hemodynamic status stable, discussed with RN patient will be started on oral magnesium and calcium replacement, dose of long-acting insulin is been reduced, continue broad-spectrum antibiotics and bronchodilators, white cell count 15.3 with stable hemoglobin and hematocrit 09/13/2022, patient seen and evaluated examined in ICU, patient is a 76-year-old female status post fall with bilateral pleural effusion has acute on chronic hypoxic respiratory failure underwent bilateral thoracentesis see operative note for details. Patient also has diabetes dyslipidemia hypothyroidism and blood dyscrasia suspicion of CML there to be evaluated by the hematology oncology. To day on evaluation she is on room air denies any chest pain is slightly confused hemodynamically stable Objective - Vital Signs Vital signs: Vital Signs Temp 97.5 F L 09/15/22 01:12 Pulse 72 09/15/22 09:23 Resp 16 09/15/22 07:40 BP 118/56 09/15/22 07:40 Pulse Ox 95 09/15/22 09:09 FiO2 21 09/15/22 09:09 Intake & Output 09/14/22 09/15/22 09/15/22 18:59 06:59 18:59 Intake Total 1721 Output Total 1050 1450 Balance 671 -1450 Weight 35 kg Intake: IV 1010 Invasive Line 3 10 Magnesium Sulfate-D5w Pmx 100 1 gm In Dextrose/Water 1 100ml.bag @ 100 mls/hr IVPB Q1H [facility] Rx#: [id number] Sodium Chloride 0.9% 1, 900 000 ml @ 75 mls/hr IV . [id number] [facility] Rx#:[id number] Oral 711 Output: Urine 1050 1450 Other: Voiding Method External Catheter # Bowel Movements 0 - Exam - Constitutional Constitutional Comment(s): - Constitutional General appearance: Present: cooperative, no acute distress, thin - EENT Eyes: Present: anicteric sclerae, EOMI ENT: Present: hearing grossly normal - Respiratory Details: Respirations even and unlabored at rest - Peripheral edema leg Peripheral Edema: bilateral: None - Neurologic Neurologic: Present: CNII-XII intact - Musculoskeletal Musculoskeletal: Present: generalized weakness - Psychiatric Psychiatric: Present: A&O x's 3, appropriate affect, intact judgment & insight - Labs CBC & Chem 7: 09/14/22 09:57 09/14/22 09:57 Labs: Abnormal Lab Results - Last 24 Hours (Table) 09/14/22 09/14/22 09/14/22 Range/Units 09:57 11:43 16:23 WBC 15.3 H (3.8-10.6) k/uL Plt Count 100 L (150-450) k/uL Neutrophils # (Manual) 11.78 H (1.3-7.7) k/uL Monocytes # (Manual) 1.68 H (0-1.0) k/uL POC Glucose (mg/dL) 233 H 405 H (70-110) mg/dL 09/14/22 Range/Units 20:36 WBC (3.8-10.6) k/uL Plt Count (150-450) k/uL Neutrophils # (Manual) (1.3-7.7) k/uL Monocytes # (Manual) (0-1.0) k/uL POC Glucose (mg/dL) 445 H (70-110) mg/dL Microbiology - Last 24 Hours (Table) 09/12/22 08:45 Body Fluid Culture - Preliminary Pleural Fluid 09/11/22 09:15 Gram Stain - Preliminary Pleural Fluid Body Fluid Culture - Preliminary Assessment and Plan Assessment: Uncontrolled type 2 diabetes mellitus with hyper and hypoglycemia Brittle diabetes with low morning sugars and high dinnertime sugars, patient gets long-acting at nighttime which has been reduced in addition continue sli ding scale Status post fall with posterior head trauma and right-sided scapular hematoma Bilateral pleural effusion Acute on chronic hypoxic respiratory failure related to above Hypertension hypertensive cardiovascular disease Extensive history of smoking and it was Electrolyte imbalance with hypomagnesemia and hypocalcemia Plan: Continue to replace magnesium and calcium Continue monitor fall precautions Monitor observe for reaccumulation of pleural fluid pulmonary ID and hematology and oncology following Continue Accu-Cheks before meals and at bedtime Long-acting insulin Levemir dose has been reduced due to morning hypoglycemia Continue gentle diuresis Bronchodilators Broad-spectrum antibiotics Consider IV fluids to Hep-Lock Evaluation for fpc or rehab case management have been consulted Time with Patient: Greater than 30
--- NOTE | 2022-09-15 10:46 | P.PN ---
Subjective Progress Note Date: 09/15/22 Principal diagnosis: Leukocytosis Patient is a 76-year-old female with a past medical significant for diabetes mellitus hypertension hyperlipidemia hypothyroidism and the patient did have a blood dyscrasia with elevated white count and concern for possible CML, presenting to the hospital with weakness and fall noticed to have a pleural effusion status post thoracocentesis which was exudative but white count was not elevated in the pleural fluid. On today's evaluation that is 09/15/2022, the patient continues to be afebrile, the patient is breathing comfortably on room air, the patient chest pain or shortness of breath, patient did have mild cough no nausea no vomiting no abdominal pain or diarrhea, denies pain to the left upper extremity Objective - Vital Signs Vital signs: Vital Signs Temp 97.5 F L 09/15/22 01:12 Pulse 75 09/15/22 01:12 Resp 14 09/15/22 01:12 BP 122/56 09/15/22 01:12 Pulse Ox 98 09/15/22 01:12 FiO2 60 09/10/22 19:42 Intake & Output 09/14/22 09/15/22 09/15/22 18:59 06:59 18:59 Intake Total 1721 Output Total 1050 1450 Balance 671 -1450 Weight 35 kg Intake: IV 1010 Invasive Line 3 10 Magnesium Sulfate-D5w Pmx 100 1 gm In Dextrose/Water 1 100ml.bag @ 100 mls/hr IVPB Q1H [facility] Rx#: [id number] Sodium Chloride 0.9% 1, 900 000 ml @ 75 mls/hr IV . [id number] [facility] Rx#:[id number] Oral 711 Output: Urine 1050 1450 Other: Voiding Method External Catheter # Bowel Movements 0 - Exam GENERAL DESCRIPTION: An elderly female lying in bed in no distress RESPIRATORY SYSTEM: Unlabored breathing , decreased breath sounds at bases HEART: S1 S2 regular rate and rhythm , ABDOMEN: Soft , no tenderness EXTREMITIES: Left upper extremity with minimal bruising, no significant redness or warmth - Labs CBC & Chem 7: 09/14/22 09:57 09/14/22 09:57 Labs: Abnormal Lab Results - Last 24 Hours (Table) 09/14/22 09/14/22 09/14/22 Range/Units 09:57 09:57 11:43 WBC 15.3 H (3.8-10.6) k/uL Plt Count 100 L (150-450) k/uL Neutrophils # (Manual) 11.78 H (1.3-7.7) k/uL Monocytes # (Manual) 1.68 H (0-1.0) k/uL Sodium 134 L (137-145) mmol/L Chloride 97 L (98-107) mmol/L Carbon Dioxide 31 H (22-30) mmol/L Glucose 258 H (74-99) mg/dL POC Glucose (mg/dL) 233 H (70-110) mg/dL Calcium 7.2 L (8.4-10.2) mg/dL Ionized Calcium Eb 4.2 L (4.5-5.3) mg/dL 09/14/22 09/14/22 Range/Units 16:23 20:36 WBC (3.8-10.6) k/uL Plt Count (150-450) k/uL Neutrophils # (Manual) (1.3-7.7) k/uL Monocytes # (Manual) (0-1.0) k/uL Sodium (137-145) mmol/L Chloride (98-107) mmol/L Carbon Dioxide (22-30) mmol/L Glucose (74-99) mg/dL POC Glucose (mg/dL) 405 H 445 H (70-110) mg/dL Calcium (8.4-10.2) mg/dL Ionized Calcium Eb (4.5-5.3) mg/dL Microbiology - Last 24 Hours (Table) 09/12/22 08:45 Body Fluid Culture - Preliminary Pleural Fluid 09/11/22 09:15 Gram Stain - Preliminary Pleural Fluid Body Fluid Culture - Preliminary Assessment and Plan (1) Leukocytosis Current Visit: Yes Status: Chronic Priority: Medium Code(s): D72.829 - ELEVATED WHITE BLOOD CELL COUNT, UNSPECIFIED SNOMED Code(s): 619389203 Plan: 1patient with a leukocytosis which is most likely related to underlying blood dyscrasia concerning for possible CML and the patient is being monitored closely by oncology services clinically doubt infectious etiology at this patient currently with no fever does not look toxic patient did have a bilateral effusion more on the left side status post thoracocentesis however the white count is only 1000 clinically doubt empyema patient abdominal soft medical examination and no evidence of any cellulitis or joint swelling 2-patient did have blood cultures which are so far negative, patient CRP and procalcitonin were mildly elevated 3- patient to continue with Rocephin while waiting for the cultures to finalize, will repeat a CBC for the morning
[2022-09-15] MEDS: BUMETANIDE 1 MG TAB PO SCH (11:08)
[2022-09-15 11:27] LABS: Glucose,Whole Blood 215 mg/dL (70-110)
[2022-09-15] MEDS: BUMETANIDE 0.25 MG/ML 4 ML VIAL IV SCH (12:27)
--- NOTE | 2022-09-15 13:14 | P.PN ---
Subjective Progress Note Date: 09/15/22 I am seeing this patient in new consultation today 09/11/2022 in the intensive care unit after the patient experienced a fall yesterday evening resulting in head trauma and a subsequent respiratory arrest. Patient is a 76-year-old white female with past medical history significant for bilateral pleural effusions, oxygen dependent on 5 L/m nasal cannula, COPD, diabetes mellitus type 2, hypertension, hyperlipidemia, hypothyroidism, hydroureternephrosis, and remote history of smoking. Her primary care provider is Dr. Barron. Patient was seen in the office by Dr. Rodgers, for a hospital follow-up. Patient did have a recent hospitalization back in June and again in July of this year. 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 Patient also had large bilateral pleural effusions at that time. Patient did undergo a thoracentesis of the right chest, which showed an exudative effusion based on protein analysis. No cytologically malignant cells were identified. A follow-up bone scan showed focal areas of uptake within the bilateral humeri, distal right tibia segment, ribs, and thoracic spine suggestive of metastatic disease. Oncology was consulted, and the patient did undergo a bone marrow biopsy showing evidence of monoclonal B cell lymphocytosis, non-CLL type. Significance unknown. She has been following with her oncologist, Dr. Connelly. Yesterday evening, the patient was exiting her car in the garage when she "lost her balance", fell landing backwards, and hit her head. She does not remember much after this event. Her apparently heard her yell out and fall. She was reportedly unresponsive, and the did perform CPR. When EMS arrived, the patient was reportedly not effectively breathing, and had to be bagged. She reportedly never lost a pulse. The patient was at her primary care physician office earlier that day, and there were apparently adjustments to her oxygen. She denies any history of seizures, vertigo. She denies any chest pain, heart palpitations, lightheadedness, or prior syncopal episodes. On arrival to the emergency room, the patient was placed on BiPAP. ABGs at that time showed a PaO2 of 180, pCO2 of 59, pH of 7.26. On my evaluation, she is no longer on the BiPAP. The patient is alert, in no acute distress, on 6 L nasal cannula. Chest x-ray on arrival showed bilateral pleural effusions with mild pulmonary vascular congestion. A follow-up chest CTA showed no evidence of pulmonary embolism and redemonstration of the large bilateral pleural effusions and associated atelectasis. CT of the brain and C-spine without contrast showed no acute intracranial abnormalities or evidence of C-spine fracture. There was a small right scapular hematoma. CBC on arrival shows some leukocytosis with a WBC count of 21.6, hemoglobin 11.9, hematocrit 37.8, platelets 120. BMP on arrival shows a sodium 136, potassium 3.4, chloride 99, serum CO2 22, BUN 15, creatinine 0.58, glucose 518. Lactic acid level was elevated at 3.8. Troponin negative 1. NT proBNP low. Patient's vital signs are stable at the moment. Patient was reevaluated today on 09/12/2022, doing well, feeling better today, est x-ray is showing small bilateral pleural effusions, right more so than left. Yesterday I performed left-sided thoracentesis, and today I performed a right- sided thoracentesis. The fluid from today was sent also for different diagnostic studies, clearly the fluid is exudative in nature. Protein is 3.5 g. Cytology is pending, I believe her effusion is most likely secondary to her underlying monoclonal B cell lymphocytosis unless proven otherwise. Patient continues to have a bit of leukocytosis with the risk of 21.1 hemoglobin is 12. ABG on admission showed a pO2 of 180 pCO2 59 pH of 7.26. Basic metabolic profile is normal, renal profile is normal today after the thoracentesis, I wou ld likely recommend transfer the patient out of the ICU to regular medical floor Patient was reevaluated today on 09/13/2022, continues to do well, she is on 2 L nasal cannula, not in any distress, her IV fluid is running at 75 mL/h. A total level is a bit elevated at 1.37, and she doesn't have leukocytosis, will empirically start the patient on antibiotics although no clear-cut evidence of a source of infection. Pleural effusion cultures are pending, the fluid was exudative in nature. Will empirically give antibiotics until the cultures are back. So far the Gram stain is negative and the pleural effusion showed no growth in the last 24 hours today were reviewed, she had basically only glucose of 72 no other labs were done today my plan is to transfer the patient out of the ICU to a regular medical floor. Reevaluated today on 09/14/2022, patient is doing well, she is now on room air, n ot in any distress, she is an overflow and the ICU. Cytology is nondiagnostic, discussed her findings with the pathologist, and he recommended that hematology/oncology orders more markers for evaluation of whether the findings in the pleural fluid are related to her macrocytosis and lymphoproliferative disorder. Apparently the patient will need further molecular studies on the cell block to determine whether this fluid is related to her hematologic issue. Will notify hematology/oncology to address this issue with the pathologist. Labs today are basically unremarkable including basic metabolic profile and CBC. From my perspective the patient could be discharged home and could have follow- up on outpatient basis with Dr. Rodgers and with hematology/oncology The patient is seen today 09/15/2022 in follow-up on the regular medical floor. She is currently sitting up in bed. Awake and alert in no acute distress. Denies any worsening shortness of breath, cough or congestion. She is maintaining good O2 saturations in the 90s on room air. Pleural fluid cultures are pending. Cytology negative for malignancy. Glucose 215. He is continued on DuoNeb inhalations, Symbicort. Antibiotics in the form of ceftriaxone. Remains on oral diuretics. Objective - Vital Signs Vital signs: Vital Signs Temp 97.6 F 09/15/22 11:25 Pulse 72 09/15/22 12:26 Resp 15 09/15/22 11:25 BP 133/63 09/15/22 11:25 Pulse Ox 92 L 09/15/22 11:25 FiO2 21 09/15/22 09:09 Intake & Output 09/14/22 09/15/22 09/15/22 18:59 06:59 18:59 Intake Total 1721 Output Total 1050 1450 Balance 671 -1450 Weight 35 kg Intake: IV 1010 Invasive Line 3 10 Magnesium Sulfate-D5w Pmx 100 1 gm In Dextrose/Water 1 100ml.bag @ 100 mls/hr IVPB Q1H [facility] Rx#: [id number] Sodium Chloride 0.9% 1, 900 000 ml @ 75 mls/hr IV . [id number] [facility] Rx#:[id number] Oral 711 Output: Urine 1050 1450 Other: Voiding Method External Catheter External Catheter # Bowel Movements 0 - Exam GENERAL EXAM: Alert, frail 76 year female, on room air, comfortable in no apparent distress. HEAD: Normocephalic. EYES: Normal reaction of pupils, equal size. NOSE: Clear with pink turbinates. THROAT: No erythema or exudates. NECK: No masses, no JVD. CHEST: No chest wall deformity. LUNGS: Equal air entry with crackles in the bilateral bases. CVS: S1 and S2 normal with no audible murmur, regular rhythm. ABDOMEN: No hepatosplenomegaly, normal bowel sounds, no guarding or rigidity. SPINE: No scoliosis or deformity SKIN: No rashes CENTRAL NERVOUS SYSTEM: No focal deficits, tone is normal in all 4 extremities. EXTREMITIES: There is no peripheral edema. No clubbing, no cyanosis. Peripheral pulses are intact. - Labs CBC & Chem 7: 09/14/22 09:57 09/14/22 09:57 Labs: Abnormal Lab Results - Last 24 Hours (Table) 09/14/22 09/14/22 09/15/22 Range/Units 16:23 20:36 11:25 POC Glucose (mg/dL) 405 H 445 H 215 H (70-110) mg/dL Microbiology - Last 24 Hours (Table) 09/12/22 08:45 Body Fluid Culture - Preliminary Pleural Fluid 09/11/22 09:15 Gram Stain - Preliminary Pleural Fluid Body Fluid Culture - Preliminary Assessment and Plan Assessment: Bilateral pleural effusions, exudative in nature, most likely secondary to her underlying monoclonal B-cell lymphocytosis based on previous bone marrow biopsy. Acute on chronic hypoxic and acute hypercapnic respiratory failure secondary to above Status post bilateral thoracentesis procedures. Type 2 diabetes with no complications. Status post head trauma with right sided scapular hematoma Monoclonal B-cell lymphocytosis and recent bone marrow biopsy Chronic hypoxic respiratory failure on 5 L nasal cannula at home Essential hypertension Hypothyroidism Ex-smoker History of right sided hydronephrosis Plan: The patient was seen and evaluated Stable and on room air Cleared for discharge from the pulmonary standpoint May need subacute rehabilitation Follow-up in our office in 1-2 weeks' I have personally seen and examined the patient, performed the documentation and the assessment and plan as written. Number of minutes spent on the visit: 10
[2022-09-15 17:12] LABS: Glucose,Whole Blood 391 mg/dL (70-110)
[2022-09-15 20:36] LABS: Glucose,Whole Blood 399 mg/dL (70-110)
[2022-09-15] MEDS: INSULIN DETEMIR (LEVEMIR) 100 UNIT/ML SYR SQ SCH (21:21)
[2022-09-16 02:13] LABS: Glucose,Whole Blood 145 mg/dL (70-110)
[2022-09-16] MEDS: INSULIN ASPART (NovoLOG) 100 UNIT/ML VIAL SQ SCH ×5 (02:23→20:50)
[2022-09-16 07:12] LABS: Glucose,Whole Blood 78 mg/dL (70-110)
[2022-09-16] MEDS: PANTOPRAZOLE 40 MG/10 ML VIAL IV SCH (08:07)
[2022-09-16] MEDS: CALCIUM CARB-VIT D 500 MG-5 MCG TAB PO SCH ×2 (08:07→18:00)
[2022-09-16] MEDS: BUMETANIDE 1 MG TAB PO SCH (08:07)
[2022-09-16] MEDS: MAGNESIUM OXIDE 400 MG TAB PO SCH ×2 (08:07→20:43)
[2022-09-16] MEDS: HEPARIN SODIUM,PORCINE/PF 5,000 UNIT/0.5 ML SYRINGE SQ SCH ×2 (08:08→20:43)
[2022-09-16] MEDS: SYMBICORT 160-4.5 MCG INHALER INHALATION SCH ×2 (09:08→20:25)
[2022-09-16] MEDS: IPRATROPIUM-ALBUTEROL 3 ML NEB INHALATION SCH ×4 (09:08→20:25)
[2022-09-16] MEDS: SODIUM CHLORIDE 0.9% 1,000 ML IV SCH ×2 (10:32→20:54)
[2022-09-16 11:20] LABS: Glucose,Whole Blood 205 mg/dL (70-110)
--- NOTE | 2022-09-16 11:54 | P.PN ---
Subjective Progress Note Date: 09/16/22 I am seeing this patient in new consultation today 09/11/2022 in the intensive care unit after the patient experienced a fall yesterday evening resulting in head trauma and a subsequent respiratory arrest. Patient is a 76-year-old white female with past medical history significant for bilateral pleural effusions, oxygen dependent on 5 L/m nasal cannula, COPD, diabetes mellitus type 2, hypertension, hyperlipidemia, hypothyroidism, hydroureternephrosis, and remote history of smoking. Her primary care provider is Dr. Barron. Patient was seen in the office by Dr. Rodgers, for a hospital follow-up. Patient did have a recent hospitalization back in June and again in July of this year. 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 Patient also had large bilateral pleural effusions at that time. Patient did undergo a thoracentesis of the right chest, which showed an exudative effusion based on protein analysis. No cytologically malignant cells were identified. A follow-up bone scan showed focal areas of uptake within the bilateral humeri, distal right tibia segment, ribs, and thoracic spine suggestive of metastatic disease. Oncology was consulted, and the patient did undergo a bone marrow biopsy showing evidence of monoclonal B cell lymphocytosis, non-CLL type. Significance unknown. She has been following with her oncologist, Dr. Connelly. Yesterday evening, the patient was exiting her car in the garage when she "lost her balance", fell landing backwards, and hit her head. She does not remember much after this event. Her apparently heard her yell out and fall. She was reportedly unresponsive, and the did perform CPR. When EMS arrived, the patient was reportedly not effectively breathing, and had to be bagged. She reportedly never lost a pulse. The patient was at her primary care physician office earlier that day, and there were apparently adjustments to her oxygen. She denies any history of seizures, vertigo. She denies any chest pain, heart palpitations, lightheadedness, or prior syncopal episodes. On arrival to the emergency room, the patient was placed on BiPAP. ABGs at that time showed a PaO2 of 180, pCO2 of 59, pH of 7.26. On my evaluation, she is no longer on the BiPAP. The patient is alert, in no acute distress, on 6 L nasal cannula. Chest x-ray on arrival showed bilateral pleural effusions with mild pulmonary vascular congestion. A follow-up chest CTA showed no evidence of pulmonary embolism and redemonstration of the large bilateral pleural effusions and associated atelectasis. CT of the brain and C-spine without contrast showed no acute intracranial abnormalities or evidence of C-spine fracture. There was a small right scapular hematoma. CBC on arrival shows some leukocytosis with a WBC count of 21.6, hemoglobin 11.9, hematocrit 37.8, platelets 120. BMP on arrival shows a sodium 136, potassium 3.4, chloride 99, serum CO2 22, BUN 15, creatinine 0.58, glucose 518. Lactic acid level was elevated at 3.8. Troponin negative 1. NT proBNP low. Patient's vital signs are stable at the moment. Patient was reevaluated today on 09/12/2022, doing well, feeling better today, est x-ray is showing small bilateral pleural effusions, right more so than left. Yesterday I performed left-sided thoracentesis, and today I performed a right- sided thoracentesis. The fluid from today was sent also for different diagnostic studies, clearly the fluid is exudative in nature. Protein is 3.5 g. Cytology is pending, I believe her effusion is most likely secondary to her underlying monoclonal B cell lymphocytosis unless proven otherwise. Patient continues to have a bit of leukocytosis with the risk of 21.1 hemoglobin is 12. ABG on admission showed a pO2 of 180 pCO2 59 pH of 7.26. Basic metabolic profile is normal, renal profile is normal today after the thoracentesis, I wou ld likely recommend transfer the patient out of the ICU to regular medical floor Patient was reevaluated today on 09/13/2022, continues to do well, she is on 2 L nasal cannula, not in any distress, her IV fluid is running at 75 mL/h. A total level is a bit elevated at 1.37, and she doesn't have leukocytosis, will empirically start the patient on antibiotics although no clear-cut evidence of a source of infection. Pleural effusion cultures are pending, the fluid was exudative in nature. Will empirically give antibiotics until the cultures are back. So far the Gram stain is negative and the pleural effusion showed no growth in the last 24 hours today were reviewed, she had basically only glucose of 72 no other labs were done today my plan is to transfer the patient out of the ICU to a regular medical floor. Reevaluated today on 09/14/2022, patient is doing well, she is now on room air, n ot in any distress, she is an overflow and the ICU. Cytology is nondiagnostic, discussed her findings with the pathologist, and he recommended that hematology/oncology orders more markers for evaluation of whether the findings in the pleural fluid are related to her macrocytosis and lymphoproliferative disorder. Apparently the patient will need further molecular studies on the cell block to determine whether this fluid is related to her hematologic issue. Will notify hematology/oncology to address this issue with the pathologist. Labs today are basically unremarkable including basic metabolic profile and CBC. From my perspective the patient could be discharged home and could have follow- up on outpatient basis with Dr. Rodgers and with hematology/oncology The patient is seen today 09/15/2022 in follow-up on the regular medical floor. She is currently sitting up in bed. Awake and alert in no acute distress. Denies any worsening shortness of breath, cough or congestion. She is maintaining good O2 saturations in the 90s on room air. Pleural fluid cultures are pending. Cytology negative for malignancy. Glucose 215. He is continued on DuoNeb inhalations, Symbicort. Antibiotics in the form of ceftriaxone. Remains on oral diuretics. The patient is seen today 09/16/2022 in follow-up on the regular medical floor. She remains awake and alert in no acute distress. Resting comfortably in bed. Maintaining good O2 saturations in the 90s on room air. She's been afebrile. Hemodynamically stable. Pleural fluid cultures revealed no growth. Blood cultures revealed no growth. Blood glucose 205. She remains on normal saline at 75 ML's per hour. Antibiotics in the form of ceftriaxone. Oral diuretics. Objective - Vital Signs Vital signs: Vital Signs Temp 97.3 F L 09/16/22 07:10 Pulse 73 09/16/22 07:10 Resp 14 09/16/22 07:10 BP 154/70 09/16/22 07:10 Pulse Ox 98 09/16/22 07:10 FiO2 21 09/15/22 09:09 Intake & Output 09/15/22 09/16/22 09/16/22 18:59 06:59 18:59 Intake Total 1000 Output Total 300 Balance 700 Weight 55 kg Intake: Intake, IV Titration 1000 Amount Sodium Chloride 0.9% 1, 1000 000 ml @ 75 mls/hr IV . [id number] [facility] Rx#:[id number] Output: Urine 300 Other: Voiding Method External Catheter External Catheter External Catheter # Voids 2 2 - Exam GENERAL EXAM: Alert, frail, very pleasant 76 year female, on room air, comfortable in no apparent distress. HEAD: Normocephalic. EYES: Normal reaction of pupils, equal size. NOSE: Clear with pink turbinates. THROAT: No erythema or exudates. NECK: No masses, no JVD. CHEST: No chest wall deformity. LUNGS: Equal air entry with crackles in the bilateral bases. CVS: S1 and S2 normal with no audible murmur, regular rhythm. ABDOMEN: No hepatosplenomegaly, normal bowel sounds, no guarding or rigidity. SPINE: No scoliosis or deformity SKIN: No rashes CENTRAL NERVOUS SYSTEM: No focal deficits, tone is normal in all 4 extremities. EXTREMITIES: There is no peripheral edema. No clubbing, no cyanosis. Peripheral pulses are intact. - Labs CBC & Chem 7: 09/14/22 09:57 09/14/22 09:57 Labs: Abnormal Lab Results - Last 24 Hours (Table) 09/15/22 09/15/22 09/16/22 Range/Units 17:11 20:34 02:12 POC Glucose (mg/dL) 391 H 399 H 145 H (70-110) mg/dL 09/16/22 Range/Units 11:19 POC Glucose (mg/dL) 205 H (70-110) mg/dL Microbiology - Last 24 Hours (Table) 09/12/22 08:45 Gram Stain - Preliminary Pleural Fluid Body Fluid Culture - Preliminary 09/11/22 09:15 Gram Stain - Final Pleural Fluid Body Fluid Culture - Final 09/12/22 15:29 Blood Culture - Preliminary Blood Assessment and Plan Assessment: Bilateral pleural effusions, exudative in nature, most likely secondary to her underlying monoclonal B-cell lymphocytosis based on previous bone marrow biopsy. Status post left-sided thoracentesis on 09/11/2022 and right-sided thoracentesis on 09/12/2022. Cytology negative for malignancy 2. Acute on chronic hypoxic and acute hypercapnic respiratory failure secondary to above Type 2 diabetes with no complications. Status post head trauma with right sided scalp hematoma Monoclonal B-cell lymphocytosis and recent bone marrow biopsy Chronic hypoxic respiratory failure on 5 L nasal cannula at home Essential hypertension Hypothyroidism Ex-smoker History of right sided hydronephrosis Plan: The patient was seen and evaluated Stable and on room air Antibiotics discontinued, pleural fluid cultures negative Cleared for discharge from the pulmonary standpoint Follow-up in our office in 1-2 weeks' I have personally seen and examined the patient, performed the documentation and the assessment and plan as written. Number of minutes spent on the visit: 10
--- NOTE | 2022-09-16 13:38 | P.PN ---
Subjective Progress Note Date: 09/16/22 Principal diagnosis: Status post fall with posterior head trauma and right-sided scapular hematoma Bilateral pleural effusion Acute on chronic hypoxic respiratory failure related to above Hypertension hypertensive cardiovascular disease Extensive history of smoking and it was Electrolyte imbalance with hypomagnesemia and 09/16/2022, he shouldn't seen eval examined during rounds well composed, able to get up with assistance, PT OT has been following, denies any chest pain discussed with her daughter yesterday as per daughter request, it appears that daughter considering evaluation at [facility], not sure if wants to be transfer from here or take her as outpatient, study coordinator has been on consult for placement issues, patient however is not clear about clear advice., Sugars are 205, tolerating medications very well patient remains in room air with stable hemodynamics 09/15/2022, patient sitting upright in the bed, denies any chest pain, still have generalized weakness with inability to get herself up by herself, patient remains on room air saturation is 95%, remains afebrile, hemodynamic status stable patient likely will need to be placed care home or rehab continue PT OT will involve case management as well, labs are not done today will order that of CBC and BMP for tomorrow currently patient is on Bumex 1 mg IV every 12 changed to by mouth continue replacement with calcium and magnesium, continue broad-spectrum antibiotics, along with bronchodilators for DVT prophylaxis and sliding scale insulin with long-acting. Patient has very labile sugar so long- acting insulin is being cut off and monitor sugars are low 09/14/2022, patient seen eval examined during rounds sitting upright in the chair on room air breathing comfortably hemodynamic status stable, discussed with RN patient will be started on oral magnesium and calcium replacement, dose of long-acting insulin is been reduced, continue broad-spectrum antibiotics and bronchodilators, white cell count 15.3 with stable hemoglobin and hematocrit 09/13/2022, patient seen and evaluated examined in ICU, patient is a 76-year-old female status post fall with bilateral pleural effusion has acute on chronic hypoxic respiratory failure underwent bilateral thoracentesis see operative note for details. Patient also has diabetes dyslipidemia hypothyroidism and blood dyscrasia suspicion of CML there to be evaluated by the hematology oncology. Today on evaluation she is on room air denies any chest pain is slightly confused hemodynamically stable Objective - Vital Signs Vital signs: Vital Signs Temp 97.6 F 06/11/23 11:44 Pulse 80 09/16/22 12:33 Resp 12 09/16/22 11:44 BP 125/64 09/16/22 11:44 Pulse Ox 95 09/16/22 11:44 FiO2 21 09/15/22 09:09 Intake & Output 09/15/22 09/16/22 09/16/22 18:59 06:59 18:59 Intake Total 1000 Output Total 300 Balance 700 Weight 55 kg Intake: Intake, IV Titration 1000 Amount Sodium Chloride 0.9% 1, 1000 000 ml @ 75 mls/hr IV . [id number] [facility] Rx#:[id number] Output: Urine 300 Other: Voiding Method External Catheter External Catheter External Catheter # Voids 2 2 - Exam - Constitutional Constitutional Comment(s): - Constitutional General appearance: Present: cooperative, no acute distress, thin - EENT Eyes: Present: anicteric sclerae, EOMI ENT: Present: hearing grossly normal - Respiratory Details: Respirations even and unlabored at rest - Peripheral edema leg Peripheral Edema: bilateral: None - Neurologic Neurologic: Present: CNII-XII intact - Musculoskeletal Musculoskeletal: Present: generalized weakness - Psychiatric Psychiatric: Present: A&O x's 3, appropriate affect, intact judgment & insight - Labs CBC & Chem 7: 09/14/22 09:57 09/14/22 09:57 Labs: Abnormal Lab Results - Last 24 Hours (Table) 09/15/22 09/15/22 09/16/22 Range/Units 17:11 20:34 02:12 POC Glucose (mg/dL) 391 H 399 H 145 H (70-110) mg/dL 09/16/22 Range/Units 11:19 POC Glucose (mg/dL) 205 H (70-110) mg/dL Microbiology - Last 24 Hours (Table) 09/12/22 15:29 Blood Culture - Preliminary Blood 09/12/22 08:45 Gram Stain - Preliminary Pleural Fluid Body Fluid Culture - Preliminary 09/11/22 09:15 Gram Stain - Final Pleural Fluid Body Fluid Culture - Final Assessment and Plan Assessment: Uncontrolled type 2 diabetes mellitus with hyper and hypoglycemia Brittle diabetes with low morning sugars and high dinnertime sugars, patient gets long-acting at nighttime which has been reduced in addition continue sliding scale Status post fall with posterior head trauma and right-sided scapular hematoma Bilateral pleural effusion Acute on chronic hypoxic respiratory failure related to above Hypertension hypertensive cardiovascular disease Extensive history of smoking and it was Electrolyte imbalance with hypomagnesemia and hypocalcemia Plan: Continue to replace magnesium and calcium Continue monitor fall precautions Monitor observe for reaccumulation of pleural fluid pulmonary ID and hematology and oncology following Continue Accu-Cheks before meals and at bedtime Long-acting insulin Levemir dose has been reduced due to morning hypoglycemia appears to have better impact on sugar levels Continue gentle diuresis Bronchodilators Broad-spectrum antibiotics IV fluids to Hep-Lock Evaluation for care home or rehab case management have been consulted Time with Patient: Greater than 30
[2022-09-16 15:46] LABS: African American GFR (CKD) >90 (>60 ml/min/1.73 sqM); Anion Gap 7 mmol/L; Blood Urea Nitrogen 14 mg/dL (7-17); Calcium 7.6 mg/dL (8.4-10.2); Carbon Dioxide 34 mmol/L (22-30); Chloride 96 mmol/L (98-107); Glucose 202 mg/dL (74-99); Non-African American GFR(CKD) >90 (>60 ml/min/1.73 sqM); Sodium 137 mmol/L (137-145)
--- NOTE | 2022-09-16 15:51 | P.PN ---
Subjective Progress Note Date: 09/16/22 Principal diagnosis: Leukocytosis Patient is a 76-year-old female with a past medical significant for diabetes mellitus hypertension hyperlipidemia hypothyroidism and the patient did have a blood dyscrasia with elevated white count and concern for possible CML, presenting to the hospital with weakness and fall noticed to have a pleural effusion status post thoracocentesis which was exudative but white count was not elevated in the pleural fluid. On today's evaluation that is 09/16/2022, the patient remains to be afebrile, the patient is breathing comfortably on room air, the patient denies chest pain or shortness of breath, patient did have mild cough but no sputum production, no nausea no vomiting no abdominal pain or diarrhea, Objective - Vital Signs Vital signs: Vital Signs Temp 97.6 F 09/16/22 11:44 Pulse 80 09/16/22 12:33 Resp 12 09/16/22 11:44 BP 125/64 09/16/22 11:44 Pulse Ox 95 09/16/22 11:44 FiO2 21 09/15/22 09:09 Intake & Output 09/15/22 09/16/22 09/16/22 18:59 06:59 18:59 Intake Total 1000 Output Total 300 Balance 700 Weight 55 kg Intake: Intake, IV Titration 1000 Amount Sodium Chloride 0.9% 1, 1000 000 ml @ 75 mls/hr IV . [id number] [facility] Rx#:[id number] Output: Urine 300 Other: Voiding Method External Catheter External Catheter External Catheter # Voids 2 1 - Exam GENERAL DESCRIPTION: An elderly female lying in bed in no distress RESPIRATORY SYSTEM: Unlabored breathing , decreased breath sounds at bases HEART: S1 S2 regular rate and rhythm , ABDOMEN: Soft , no tenderness EXTREMITIES: Left upper extremity with minimal bruising, no significant redness or warmth - Labs CBC & Chem 7: 09/14/22 09:57 09/16/22 14:11 Labs: Abnormal Lab Results - Last 24 Hours (Table) 09/15/22 09/15/22 09/16/22 Range/Units 17:11 20:34 02:12 Chloride (98-107) mmol/L Carbon Dioxide (22-30) mmol/L Glucose (74-99) mg/dL POC Glucose (mg/dL) 391 H 399 H 145 H (70-110) mg/dL Calcium (8.4-10.2) mg/dL 09/16/22 09/16/22 Range/Units 11:19 14:11 Chloride 96 L (98-107) mmol/L Carbon Dioxide 34 H (22-30) mmol/L Glucose 202 H (74-99) mg/dL POC Glucose (mg/dL) 205 H (70-110) mg/dL Calcium 7.6 L (8.4-10.2) mg/dL Microbiology - Last 24 Hours (Table) 09/12/22 15:29 Blood Culture - Preliminary Blood 09/12/22 08:45 Gram Stain - Preliminary Pleural Fluid Body Fluid Culture - Preliminary 09/11/22 09:15 Gram Stain - Final Pleural Fluid Body Fluid Culture - Final Assessment and Plan (1) Leukocytosis Current Visit: Yes Status: Chronic Priority: Medium Code(s): D72.829 - ELEVATED WHITE BLOOD CELL COUNT, UNSPECIFIED SNOMED Code(s): 193302632 Plan: 1patient with a leukocytosis which is most likely related to underlying blood dyscrasia concerning for possible CML and the patient is being monitored closely by oncology services clinically doubt infectious etiology at this patient currently with no fever does not look toxic patient did have a bilateral effusion more on the left side status post thoracocentesis however the white count is only 1000 clinically doubt empyema patient abdominal soft medical examination and no evidence of any cellulitis or joint swelling 2-patient did have blood cultures which are so far negative, patient CRP and procalcitonin were mildly elevated 3- patient has received 4 days of Rocephin and has automatically stop, we will give her oral Omnicef and monitor clinical course closely while waiting for the cultures to finalize, will repeat a CBC for the morning Time with Patient: Less than 30
[2022-09-16 16:01] LABS: HCT 39.7 % (34.0-46.0); HGB 12.3 gm/dL (11.4-16.0); Hypochromasia Slight; MCH 27.6 pg (25.0-35.0); Mean Platelet Volume 14.5; Platelet Count 116 k/uL (150-450); RBC 4.47 m/uL (3.80-5.40); RDW 15.6 % (11.5-15.5); WBC 15.1 k/uL (3.8-10.6)
[2022-09-16 16:39] LABS: Eosinophils # (M) 0.15 k/uL (0-0.7); Lymphocytes # (M) 3.62 k/uL (1.0-4.8); Monocytes # (M) 2.11 k/uL (0-1.0); Neutrophils # (M) 9.21 k/uL (1.3-7.7); Neutrophils % (M) 61 %; Nucleated Red Blood Cells 0 /100 WBC (0-0); Total Cells Counted 100
[2022-09-16 17:12] LABS: Glucose,Whole Blood 202 mg/dL (70-110)
[2022-09-16 20:25] LABS: Glucose,Whole Blood 395 mg/dL (70-110)
[2022-09-16] MEDS: CEFDINIR 300 MG CAP PO SCH (20:48)
[2022-09-16] MEDS: INSULIN DETEMIR (LEVEMIR) 100 UNIT/ML SYR SQ SCH (20:50)
[2022-09-17 02:16] LABS: Glucose,Whole Blood 101 mg/dL (70-110)
[2022-09-17] MEDS: INSULIN ASPART (NovoLOG) 100 UNIT/ML VIAL SQ SCH ×5 (02:40→21:20)
[2022-09-17 07:45] LABS: Glucose,Whole Blood 67 mg/dL (70-110)
[2022-09-17 08:13] LABS: Glucose,Whole Blood 70 mg/dL (70-110)
[2022-09-17] MEDS: SODIUM CHLORIDE 0.9% 1,000 ML IV SCH (09:22)
[2022-09-17] MEDS: CALCIUM CARB-VIT D 500 MG-5 MCG TAB PO SCH ×2 (09:22→17:44)
[2022-09-17] MEDS: MAGNESIUM OXIDE 400 MG TAB PO SCH ×2 (09:22→21:20)
[2022-09-17] MEDS: BUMETANIDE 1 MG TAB PO SCH (09:24)
[2022-09-17] MEDS: PANTOPRAZOLE 40 MG/10 ML VIAL IV SCH (09:24)
[2022-09-17] MEDS: HEPARIN SODIUM,PORCINE/PF 5,000 UNIT/0.5 ML SYRINGE SQ SCH ×2 (09:24→21:20)
[2022-09-17] MEDS: CEFDINIR 300 MG CAP PO SCH ×2 (09:24→21:20)
[2022-09-17] MEDS: SYMBICORT 160-4.5 MCG INHALER INHALATION SCH ×2 (09:41→18:56)
[2022-09-17] MEDS: IPRATROPIUM-ALBUTEROL 3 ML NEB INHALATION SCH ×4 (09:41→18:56)
[2022-09-17 11:23] LABS: Glucose,Whole Blood 215 mg/dL (70-110)
--- NOTE | 2022-09-17 13:35 | P.PN ---
Subjective Progress Note Date: 09/17/22 I am seeing this patient in new consultation today 09/11/2022 in the intensive care unit after the patient experienced a fall yesterday evening resulting in head trauma and a subsequent respiratory arrest. Patient is a 76-year-old white female with past medical history significant for bilateral pleural effusions, oxygen dependent on 5 L/m nasal cannula, COPD, diabetes mellitus type 2, hypertension, hyperlipidemia, hypothyroidism, hydroureternephrosis, and remote history of smoking. Her primary care provider is Dr. Barron. Patient was seen in the office by Dr. Rodgers, for a hospital follow-up. Patient did have a recent hospitalization back in June and again in July of this year. 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 Patient also had large bilateral pleural effusions at that time. Patient did undergo a thoracentesis of the right chest, which showed an exudative effusion based on protein analysis. No cytologically malignant cells were identified. A follow-up bone scan showed focal areas of uptake within the bilateral humeri, distal right tibia segment, ribs, and thoracic spine suggestive of metastatic disease. Oncology was consulted, and the patient did undergo a bone marrow biopsy showing evidence of monoclonal B cell lymphocytosis, non-CLL type. Significance unknown. She has been following with her oncologist, Dr. Connelly. Yesterday evening, the patient was exiting her car in the garage when she "lost her balance", fell landing backwards, and hit her head. She does not remember much after this event. Her apparently heard her yell out and fall. She was reportedly unresponsive, and the did perform CPR. When EMS arrived, the patient was reportedly not effectively breathing, and had to be bagged. She reportedly never lost a pulse. The patient was at her primary care physician office earlier that day, and there were apparently adjustments to her oxygen. She denies any history of seizures, vertigo. She denies any chest pain, heart palpitations, lightheadedness, or prior syncopal episodes. On arrival to the emergency room, the patient was placed on BiPAP. ABGs at that time showed a PaO2 of 180, pCO2 of 59, pH of 7.26. On my evaluation, she is no longer on the BiPAP. The patient is alert, in no acute distress, on 6 L nasal cannula. Chest x-ray on arrival showed bilateral pleural effusions with mild pulmonary vascular congestion. A follow-up chest CTA showed no evidence of pulmonary embolism and redemonstration of the large bilateral pleural effusions and associated atelectasis. CT of the brain and C-spine without contrast showed no acute intracranial abnormalities or evidence of C-spine fracture. There was a small right scapular hematoma. CBC on arrival shows some leukocytosis with a WBC count of 21.6, hemoglobin 11.9, hematocrit 37.8, platelets 120. BMP on arrival shows a sodium 136, potassium 3.4, chloride 99, serum CO2 22, BUN 15, creatinine 0.58, glucose 518. Lactic acid level was elevated at 3.8. Troponin negative 1. NT proBNP low. Patient's vital signs are stable at the moment. Patient was reevaluated today on 09/12/2022, doing well, feeling better today, est x-ray is showing small bilateral pleural effusions, right more so than left. Yesterday I performed left-sided thoracentesis, and today I performed a right- sided thoracentesis. The fluid from today was sent also for different diagnostic studies, clearly the fluid is exudative in nature. Protein is 3.5 g. Cytology is pending, I believe her effusion is most likely secondary to her underlying monoclonal B cell lymphocytosis unless proven otherwise. Patient continues to have a bit of leukocytosis with the risk of 21.1 hemoglobin is 12. ABG on admission showed a pO2 of 180 pCO2 59 pH of 7.26. Basic metabolic profile is normal, renal profile is normal today after the thoracentesis, I wou ld likely recommend transfer the patient out of the ICU to regular medical floor Patient was reevaluated today on 09/13/2022, continues to do well, she is on 2 L nasal cannula, not in any distress, her IV fluid is running at 75 mL/h. A total level is a bit elevated at 1.37, and she doesn't have leukocytosis, will empirically start the patient on antibiotics although no clear-cut evidence of a source of infection. Pleural effusion cultures are pending, the fluid was exudative in nature. Will empirically give antibiotics until the cultures are back. So far the Gram stain is negative and the pleural effusion showed no growth in the last 24 hours today were reviewed, she had basically only glucose of 72 no other labs were done today my plan is to transfer the patient out of the ICU to a regular medical floor. Reevaluated today on 09/14/2022, patient is doing well, she is now on room air, n ot in any distress, she is an overflow and the ICU. Cytology is nondiagnostic, discussed her findings with the pathologist, and he recommended that hematology/oncology orders more markers for evaluation of whether the findings in the pleural fluid are related to her macrocytosis and lymphoproliferative disorder. Apparently the patient will need further molecular studies on the cell block to determine whether this fluid is related to her hematologic issue. Will notify hematology/oncology to address this issue with the pathologist. Labs today are basically unremarkable including basic metabolic profile and CBC. From my perspective the patient could be discharged home and could have follow- up on outpatient basis with Dr. Rodgers and with hematology/oncology The patient is seen today 09/15/2022 in follow-up on the regular medical floor. She is currently sitting up in bed. Awake and alert in no acute distress. Denies any worsening shortness of breath, cough or congestion. She is maintaining good O2 saturations in the 90s on room air. Pleural fluid cultures are pending. Cytology negative for malignancy. Glucose 215. He is continued on DuoNeb inhalations, Symbicort. Antibiotics in the form of ceftriaxone. Remains on oral diuretics. The patient is seen today 09/16/2022 in follow-up on the regular medical floor. She remains awake and alert in no acute distress. Resting comfortably in bed. Maintaining good O2 saturations in the 90s on room air. She's been afebrile. Hemodynamically stable. Pleural fluid cultures revealed no growth. Blood cultures revealed no growth. Blood glucose 205. She remains on normal saline at 75 ML's per hour. Antibiotics in the form of ceftriaxone. Oral diuretics. The patient is seen today 09/17/2022 in follow-up on the regular medical floor. She is currently sitting up in a chair at the bedside having breakfast. Awake and alert in no acute distress. Denies any worsening shortness of breath, cough or congestion. Maintaining good O2 saturations in the 90s on room air. Afebrile. Hemodynamically stable. Blood cultures reveal no growth. Pleural fluid revealed no growth. She remains on DuoNeb inhalations, Symbicort. Normal saline at 75 ML's per hour. Heparin for DVT prophylaxis. Antibiotics in the form of Omnicef. Objective - Vital Signs Vital signs: Vital Signs Temp 97.0 F L 09/17/22 11:15 Pulse 76 09/17/22 13:28 Resp 18 09/17/22 11:15 BP 131/62 09/17/22 11:15 Pulse Ox 92 L 09/17/22 11:15 FiO2 21 09/15/22 09:09 Intake & Output 09/16/22 09/17/22 09/17/22 18:59 06:59 18:59 Output Total 650 200 Balance -650 -200 Output: Urine 650 200 Other: Voiding Method External Catheter External Catheter External Catheter # Voids 1 4 - Exam GENERAL EXAM: Alert, frail, 76 year female, up in a chair, on room air, comfortable in no apparent distress. HEAD: Normocephalic. EYES: Normal reaction of pupils, equal size. NOSE: Clear with pink turbinates. THROAT: No erythema or exudates. NECK: No masses, no JVD. CHEST: No chest wall deformity. LUNGS: Equal air entry with crackles in the bilateral bases. CVS: S1 and S2 normal with no audible murmur, regular rhythm. ABDOMEN: No hepatosplenomegaly, normal bowel sounds, no guarding or rigidity. SPINE: No scoliosis or deformity SKIN: No rashes CENTRAL NERVOUS SYSTEM: No focal deficits, tone is normal in all 4 extremities. EXTREMITIES: There is no peripheral edema. No clubbing, no cyanosis. Peripheral pulses are intact. - Labs CBC & Chem 7: 09/16/22 14:11 09/16/22 14:11 Labs: Abnormal Lab Results - Last 24 Hours (Table) 09/16/22 09/16/22 09/16/22 Range/Units 14:11 14:11 17:10 WBC 15.1 H (3.8-10.6) k/uL RDW 15.6 H (11.5-15.5) % Plt Count 116 L (150-450) k/uL Neutrophils # (Manual) 9.21 H (1.3-7.7) k/uL Monocytes # (Manual) 2.11 H (0-1.0) k/uL Chloride 96 L (98-107) mmol/L Carbon Dioxide 34 H (22-30) mmol/L Glucose 202 H (74-99) mg/dL POC Glucose (mg/dL) 202 H (70-110) mg/dL Calcium 7.6 L (8.4-10.2) mg/dL 09/16/22 09/17/22 09/17/22 Range/Units 20:23 07:43 11:15 WBC (3.8-10.6) k/uL RDW (11.5-15.5) % Plt Count (150-450) k/uL Neutrophils # (Manual) (1.3-7.7) k/uL Monocytes # (Manual) (0-1.0) k/uL Chloride (98-107) mmol/L Carbon Dioxide (22-30) mmol/L Glucose (74-99) mg/dL POC Glucose (mg/dL) 395 H 67 L 215 H (70-110) mg/dL Calcium (8.4-10.2) mg/dL Microbiology - Last 24 Hours (Table) 09/12/22 08:45 Gram Stain - Final Pleural Fluid Body Fluid Culture - Final 09/12/22 15:29 Blood Culture - Preliminary Blood 09/11/22 09:15 Gram Stain - Final Pleural Fluid Body Fluid Culture - Final Assessment and Plan Assessment: Bilateral pleural effusions, exudative in nature, most likely secondary to her underlying monoclonal B-cell lymphocytosis based on previous bone marrow biopsy. Status post left-sided thoracentesis on 09/11/2022 and right-sided thoracentesis on 09/12/2022. Cytology negative for malignancy 2. Acute on chronic hypoxic and acute hypercapnic respiratory failure secondary to above Type 2 diabetes with no complications. Status post head trauma with right sided scalp hematoma Monoclonal B-cell lymphocytosis and recent bone marrow biopsy Chronic hypoxic respiratory failure on 5 L nasal cannula at home Essential hypertension Hypothyroidism Ex-smoker History of right sided hydronephrosis Plan: The patient was seen and evaluated Stable and on room air Cleared for discharge from the pulmonary standpoint Follow-up in our office in 1-2 weeks' I have personally seen and examined the patient, performed the documentation and the assessment and plan as written. Number of minutes spent on the visit: 10
[2022-09-17 17:06] LABS: Glucose,Whole Blood 385 mg/dL (70-110)
[2022-09-17 20:40] LABS: Glucose,Whole Blood 392 mg/dL (70-110)
[2022-09-17] MEDS: INSULIN DETEMIR (LEVEMIR) 100 UNIT/ML SYR SQ SCH (21:20)
--- NOTE | 2022-09-18 00:06 | PN ---
PROGRESS NOTE SUBJECTIVE: This is a 76-year-old white female DuoNeb, Symbicort, breathing treatments. The patient wants to have an appointment pain down, came in clinic, will try to get her appointment. OBJECTIVE: CARDIOVASCULAR: S1, S2. LUNGS: Transmitted upper sounds. HEMATOLOGY: Negative for Homans. Thoracentesis negative for any malignancy, positive for . ASSESSMENT AND PLAN: CHF diastolic, pulmonary hypertension, COPD, mild steatosis. Continue with treatment. Possible discharge home soon with transfer outpatient down at [facility] for second opinion on malignant nature of possible CML secondary to pain. MMODL / IJN: [id number] /
[2022-09-18 02:02] LABS: Glucose,Whole Blood 106 mg/dL (70-110)
[2022-09-18] MEDS: INSULIN ASPART (NovoLOG) 100 UNIT/ML VIAL SQ SCH ×5 (05:30→21:09)
[2022-09-18] MEDS: SODIUM CHLORIDE 0.9% 1,000 ML IV SCH ×2 (05:32→08:21)
[2022-09-18 07:40] LABS: Glucose,Whole Blood 49 mg/dL (70-110)
[2022-09-18 08:08] LABS: Glucose,Whole Blood 73 mg/dL (70-110)
[2022-09-18] MEDS: CEFDINIR 300 MG CAP PO SCH ×2 (08:21→21:09)
[2022-09-18] MEDS: PANTOPRAZOLE 40 MG/10 ML VIAL IV SCH (08:21)
[2022-09-18] MEDS: BUMETANIDE 1 MG TAB PO SCH (08:21)
[2022-09-18] MEDS: MAGNESIUM OXIDE 400 MG TAB PO SCH ×2 (08:21→21:08)
[2022-09-18] MEDS: HEPARIN SODIUM,PORCINE/PF 5,000 UNIT/0.5 ML SYRINGE SQ SCH ×2 (08:21→21:09)
[2022-09-18] MEDS: CALCIUM CARB-VIT D 500 MG-5 MCG TAB PO SCH ×2 (08:21→17:54)
[2022-09-18] MEDS: IPRATROPIUM-ALBUTEROL 3 ML NEB INHALATION SCH ×4 (08:30→20:15)
[2022-09-18] MEDS: SYMBICORT 160-4.5 MCG INHALER INHALATION SCH ×2 (08:31→20:15)
--- NOTE | 2022-09-18 11:10 | P.PN ---
Subjective Progress Note Date: 09/18/22 I am seeing this patient in new consultation today 09/11/2022 in the intensive care unit after the patient experienced a fall yesterday evening resulting in head trauma and a subsequent respiratory arrest. Patient is a 76-year-old white female with past medical history significant for bilateral pleural effusions, oxygen dependent on 5 L/m nasal cannula, COPD, diabetes mellitus type 2, hypertension, hyperlipidemia, hypothyroidism, hydroureternephrosis, and remote history of smoking. Her primary care provider is Dr. Barron. Patient was seen in the office by Dr. Rodgers, for a hospital follow-up. Patient did have a recent hospitalization back in June and again in July of this year. 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 Patient also had large bilateral pleural effusions at that time. Patient did undergo a thoracentesis of the right chest, which showed an exudative effusion based on protein analysis. No cytologically malignant cells were identified. A follow-up bone scan showed focal areas of uptake within the bilateral humeri, distal right tibia segment, ribs, and thoracic spine suggestive of metastatic disease. Oncology was consulted, and the patient did undergo a bone marrow biopsy showing evidence of monoclonal B cell lymphocytosis, non-CLL type. Significance unknown. She has been following with her oncologist, Dr. Connelly. Yesterday evening, the patient was exiting her car in the garage when she "lost her balance", fell landing backwards, and hit her head. She does not remember much after this event. Her apparently heard her yell out and fall. She was reportedly unresponsive, and the did perform CPR. When EMS arrived, the patient was reportedly not effectively breathing, and had to be bagged. She reportedly never lost a pulse. The patient was at her primary care physician office earlier that day, and there were apparently adjustments to her oxygen. She denies any history of seizures, vertigo. She denies any chest pain, heart palpitations, lightheadedness, or prior syncopal episodes. On arrival to the emergency room, the patient was placed on BiPAP. ABGs at that time showed a PaO2 of 180, pCO2 of 59, pH of 7.26. On my evaluation, she is no longer on the BiPAP. The patient is alert, in no acute distress, on 6 L nasal cannula. Chest x-ray on arrival showed bilateral pleural effusions with mild pulmonary vascular congestion. A follow-up chest CTA showed no evidence of pulmonary embolism and redemonstration of the large bilateral pleural effusions and associated atelectasis. CT of the brain and C-spine without contrast showed no acute intracranial abnormalities or evidence of C-spine fracture. There was a small right scapular hematoma. CBC on arrival shows some leukocytosis with a WBC count of 21.6, hemoglobin 11.9, hematocrit 37.8, platelets 120. BMP on arrival shows a sodium 136, potassium 3.4, chloride 99, serum CO2 22, BUN 15, creatinine 0.58, glucose 518. Lactic acid level was elevated at 3.8. Troponin negative 1. NT proBNP low. Patient's vital signs are stable at the moment. Patient was reevaluated today on 09/12/2022, doing well, feeling better today, est x-ray is showing small bilateral pleural effusions, right more so than left. Yesterday I performed left-sided thoracentesis, and today I performed a right- sided thoracentesis. The fluid from today was sent also for different diagnostic studies, clearly the fluid is exudative in nature. Protein is 3.5 g. Cytology is pending, I believe her effusion is most likely secondary to her underlying monoclonal B cell lymphocytosis unless proven otherwise. Patient continues to have a bit of leukocytosis with the risk of 21.1 hemoglobin is 12. ABG on admission showed a pO2 of 180 pCO2 59 pH of 7.26. Basic metabolic profile is normal, renal profile is normal today after the thoracentesis, I wou ld likely recommend transfer the patient out of the ICU to regular medical floor Patient was reevaluated today on 09/13/2022, continues to do well, she is on 2 L nasal cannula, not in any distress, her IV fluid is running at 75 mL/h. A total level is a bit elevated at 1.37, and she doesn't have leukocytosis, will empirically start the patient on antibiotics although no clear-cut evidence of a source of infection. Pleural effusion cultures are pending, the fluid was exudative in nature. Will empirically give antibiotics until the cultures are back. So far the Gram stain is negative and the pleural effusion showed no growth in the last 24 hours today were reviewed, she had basically only glucose of 72 no other labs were done today my plan is to transfer the patient out of the ICU to a regular medical floor. Reevaluated today on 09/14/2022, patient is doing well, she is now on room air, n ot in any distress, she is an overflow and the ICU. Cytology is nondiagnostic, discussed her findings with the pathologist, and he recommended that hematology/oncology orders more markers for evaluation of whether the findings in the pleural fluid are related to her macrocytosis and lymphoproliferative disorder. Apparently the patient will need further molecular studies on the cell block to determine whether this fluid is related to her hematologic issue. Will notify hematology/oncology to address this issue with the pathologist. Labs today are basically unremarkable including basic metabolic profile and CBC. From my perspective the patient could be discharged home and could have follow- up on outpatient basis with Dr. Rodgers and with hematology/oncology The patient is seen today 09/15/2022 in follow-up on the regular medical floor. She is currently sitting up in bed. Awake and alert in no acute distress. Denies any worsening shortness of breath, cough or congestion. She is maintaining good O2 saturations in the 90s on room air. Pleural fluid cultures are pending. Cytology negative for malignancy. Glucose 215. He is continued on DuoNeb inhalations, Symbicort. Antibiotics in the form of ceftriaxone. Remains on oral diuretics. The patient is seen today 09/16/2022 in follow-up on the regular medical floor. She remains awake and alert in no acute distress. Resting comfortably in bed. Maintaining good O2 saturations in the 90s on room air. She's been afebrile. Hemodynamically stable. Pleural fluid cultures revealed no growth. Blood cultures revealed no growth. Blood glucose 205. She remains on normal saline at 75 ML's per hour. Antibiotics in the form of ceftriaxone. Oral diuretics. The patient is seen today 09/17/2022 in follow-up on the regular medical floor. She is currently sitting up in a chair at the bedside having breakfast. Awake and alert in no acute distress. Denies any worsening shortness of breath, cough or congestion. Maintaining good O2 saturations in the 90s on room air. Afebrile. Hemodynamically stable. Blood cultures reveal no growth. Pleural fluid revealed no growth. She remains on DuoNeb inhalations, Symbicort. Normal saline at 75 ML's per hour. Heparin for DVT prophylaxis. Antibiotics in the form of Omnicef. The patient is seen today 09/18/2022 in follow-up on the regular medical floor. Awake and alert in no acute distress. Denies any worsening shortness of breath, cough or congestion. Pleural fluid cultures revealed no growth. Glucose 73. She remains on DuoNeb inhalations, Symbicort. Antibiotics in the form of Omnicef. Objective - Vital Signs Vital signs: Vital Signs Temp 97.5 F L 09/18/22 07:44 Pulse 84 09/18/22 08:42 Resp 18 09/18/22 07:44 BP 148/71 09/18/22 07:44 Pulse Ox 92 L 09/18/22 08:34 FiO2 21 09/15/22 09:09 Intake & Output 09/17/22 09/18/22 09/18/22 18:59 06:59 18:59 Intake Total 900 Output Total 200 Balance -200 900 Weight 59.8 kg Intake: IV 900 Sodium Chloride 0.9% 1, 900 000 ml @ 75 mls/hr IV . [id number] [facility] Rx#:[id number] Output: Urine 200 Other: Voiding Method External Catheter External Catheter # Voids 1 2 # Bowel Movements 1 - Exam GENERAL EXAM: Alert, frail, 76 year female, comfortable in no apparent distress. HEAD: Normocephalic. EYES: Normal reaction of pupils, equal size. NOSE: Clear with pink turbinates. THROAT: No erythema or exudates. NECK: No masses, no JVD. CHEST: No chest wall deformity. LUNGS: Equal air entry with crackles in the bilateral bases. CVS: S1 and S2 normal with no audible murmur, regular rhythm. ABDOMEN: No hepatosplenomegaly, normal bowel sounds, no guarding or rigidity. SPINE: No scoliosis or deformity SKIN: No rashes CENTRAL NERVOUS SYSTEM: No focal deficits, tone is normal in all 4 extremities. EXTREMITIES: There is no peripheral edema. No clubbing, no cyanosis. Peripheral pulses are intact. - Labs CBC & Chem 7: 09/16/22 14:11 09/16/22 14:11 Labs: Abnormal Lab Results - Last 24 Hours (Table) 09/17/22 09/17/22 09/17/22 Range/Units 11:15 16:59 20:38 POC Glucose (mg/dL) 215 H 385 H 392 H (70-110) mg/dL 09/18/22 Range/Units 07:38 POC Glucose (mg/dL) 49 L (70-110) mg/dL Microbiology - Last 24 Hours (Table) 09/12/22 08:45 Gram Stain - Final Pleural Fluid Body Fluid Culture - Final Assessment and Plan Assessment: Bilateral pleural effusions, exudative in nature, most likely secondary to her underlying monoclonal B-cell lymphocytosis based on previous bone marrow biopsy. Status post left-sided thoracentesis on 09/11/2022 and right-sided thoracentesis on 09/12/2022. Cytology negative for malignancy 2. Acute on chronic hypoxic and acute hypercapnic respiratory failure secondary to above Type 2 diabetes with no complications. Status post head trauma with right sided scalp hematoma Monoclonal B-cell lymphocytosis and recent bone marrow biopsy Chronic hypoxic respiratory failure on 5 L nasal cannula at home Essential hypertension Hypothyroidism Ex-smoker History of right sided hydronephrosis Plan: The patient was seen and evaluated Stable and on room air Cleared for discharge from the pulmonary standpoint Follow-up in our office in 1-2 weeks' We will see the patient as needed I have personally seen and examined the patient, performed the documentation and the assessment and plan as written. Number of minutes spent on the visit: 10
[2022-09-18 11:59] LABS: Glucose,Whole Blood 146 mg/dL (70-110)
--- NOTE | 2022-09-18 14:29 | P.PN ---
Subjective Progress Note Date: 09/18/22 Principal diagnosis: hx CMML, pleural effusions, GRACE At today's visit patient is resting completely in bedside chair. Patient continues to do well. Denies shortness of breath at this time. Breathing is even and unlabored. Denies pain. Objective - Vital Signs Vital signs: Vital Signs Temp 97.5 F L 09/18/22 07:44 Pulse 80 09/18/22 12:01 Resp 18 09/18/22 07:44 BP 148/71 09/18/22 07:44 Pulse Ox 92 L 09/18/22 08:34 FiO2 21 09/15/22 09:09 Intake & Output 09/17/22 09/18/22 09/18/22 18:59 06:59 18:59 Intake Total 900 Output Total 200 Balance -200 900 Weight 59.8 kg Intake: IV 900 Sodium Chloride 0.9% 1, 900 000 ml @ 75 mls/hr IV . [id number] [facility] Rx#:[id number] Output: Urine 200 Other: Voiding Method External Catheter External Catheter # Voids 1 2 # Bowel Movements 1 - Constitutional General appearance: Present: average body habitus, no acute distress - EENT Eyes: Present: anicteric sclerae, EOMI ENT: Present: hearing grossly normal - Respiratory Details: breathing is even and unlabored - Cardiovascular Details: skin warm and dry - Integumentary Integumentary: Absent: cyanotic, rash - Neurologic Neurologic: Present: CNII-XII intact - Musculoskeletal Musculoskeletal: Present: generalized weakness - Psychiatric Psychiatric: Present: A&O x's 3, appropriate affect, intact judgment & insight - Labs CBC & Chem 7: 09/16/22 14:11 09/16/22 14:11 Labs: Abnormal Lab Results - Last 24 Hours (Table) 09/17/22 09/17/22 09/18/22 Range/Units 16:59 20:38 07:38 POC Glucose (mg/dL) 385 H 392 H 49 L (70-110) mg/dL 09/18/22 Range/Units 11:58 POC Glucose (mg/dL) 146 H (70-110) mg/dL Microbiology - Last 24 Hours (Table) 09/12/22 15:29 Blood Culture - Final Blood 09/12/22 08:45 Gram Stain - Final Pleural Fluid Body Fluid Culture - Final Assessment and Plan (1) Respiratory failure Current Visit: Yes Status: Acute Priority: High Code(s): J96.90 - RESPIRATORY FAILURE, UNSP, UNSP W HYPOXIA OR HYPERCAPNIA SNOMED Code(s): 740017773 (2) Bilateral pleural effusion Current Visit: Yes Status: Chronic Priority: High Code(s): J90 - PLEURAL EFFUSION, NOT ELSEWHERE CLASSIFIED SNOMED Code(s): 103023062 Plan: Respiratory failure -Patient remains in the intensive care unit, continues to do well. 96% RA. Anticipate transfer to medical floor soon. Pleural effusions -Recurrent effusions typically associated with a malignant cause but, unfortunately, we do not have confirmation of the same-no solid masses, or gross hematological malignancy. Back in June there is a NM bone scan showing multiple bone lesions-may have to consider biopsy. Will see how patient is doing once she is out of the ICU. -Cytology of pleural fluid specimens negative for malignancy. Leukocytosis -WBC has continued to improve, 15.1. Monocytes elevated at 2.11. Will order C- KIT mutation and tryptase on pleural fluid to further r/o mastocytosis. Flow cytometry on pleural fluid, blasts and B and T lymphocyte panel pending -Bone marrow biopsy on 07/10/22 revealed leukocytosis with absolute monocytosis with few reactive/atypical lymphocytes noted. Mild increase in B cells which appeared clonal by flow cytometry could be life assurance representative of monoclonal B cells of undetermined significance, not consistent with CLL. -Patient's presenting symptoms-pleural effusions were the cause of SOB and l ikely respiratory failure. Dr. Jurado, [employer] at [facility], has discussed the case with Dr. Connelly and it was not felt that the effusions were 2/2 hematologic findings -Pleural fluid cultures and blood cultures negative. -Continues on cefdinr -Per pt she is seeking additional workup at [facility] upon discharge
[2022-09-18 17:17] LABS: Glucose,Whole Blood 208 mg/dL (70-110)
[2022-09-18 20:08] LABS: Glucose,Whole Blood 274 mg/dL (70-110)
--- NOTE | 2022-09-18 22:14 | P.PN ---
Subjective Progress Note Date: 09/17/22 Principal diagnosis: Leukocytosis Patient is a 76-year-old female with a past medical significant for diabetes mellitus hypertension hyperlipidemia hypothyroidism and the patient did have a blood dyscrasia with elevated white count and concern for possible CML, presenting to the hospital with weakness and fall noticed to have a pleural effusion status post thoracocentesis which was exudative but white count was not elevated in the pleural fluid. On today's evaluation that is 09/17/2022, the patient continues to be afebrile, the patient is breathing comfortably on room air, the patient denies chest pain or shortness of breath, patient did have mild cough mostly dry in nature, no nausea no vomiting no abdominal pain or diarrhea, Objective - Vital Signs Vital signs: Vital Signs Temp 98.7 F 09/17/22 07:55 Pulse 82 09/17/22 09:51 Resp 17 09/17/22 07:55 BP 157/67 09/17/22 07:55 Pulse Ox 95 09/17/22 09:44 FiO2 21 09/15/22 09:09 Intake & Output 09/16/22 09/17/22 09/17/22 18:59 06:59 18:59 Output Total 650 Balance -650 Output: Urine 650 Other: Voiding Method External Catheter External Catheter # Voids 1 4 - Exam GENERAL DESCRIPTION: An elderly female lying in bed in no distress RESPIRATORY SYSTEM: Unlabored breathing , decreased breath sounds at bases HEART: S1 S2 regular rate and rhythm , ABDOMEN: Soft , no tenderness EXTREMITIES: Left upper extremity with minimal bruising, no significant redness or warmth - Labs CBC & Chem 7: 09/16/22 14:11 09/16/22 14:11 Labs: Abnormal Lab Results - Last 24 Hours (Table) 09/16/22 09/16/22 09/16/22 Range/Units 11:19 14:11 14:11 WBC 15.1 H (3.8-10.6) k/uL RDW 15.6 H (11.5-15.5) % Plt Count 116 L (150-450) k/uL Neutrophils # (Manual) 9.21 H (1.3-7.7) k/uL Monocytes # (Manual) 2.11 H (0-1.0) k/uL Chloride 96 L (98-107) mmol/L Carbon Dioxide 34 H (22-30) mmol/L Glucose 202 H (74-99) mg/dL POC Glucose (mg/dL) 205 H (70-110) mg/dL Calcium 7.6 L (8.4-10.2) mg/dL 09/16/22 09/16/22 09/17/22 Range/Units 17:10 20:23 07:43 WBC (3.8-10.6) k/uL RDW (11.5-15.5) % Plt Count (150-450) k/uL Neutrophils # (Manual) (1.3-7.7) k/uL Monocytes # (Manual) (0-1.0) k/uL Chloride (98-107) mmol/L Carbon Dioxide (22-30) mmol/L Glucose (74-99) mg/dL POC Glucose (mg/dL) 202 H 395 H 67 L (70-110) mg/dL Calcium (8.4-10.2) mg/dL Microbiology - Last 24 Hours (Table) 09/12/22 08:45 Gram Stain - Final Pleural Fluid Body Fluid Culture - Final 09/12/22 15:29 Blood Culture - Preliminary Blood 09/11/22 09:15 Gram Stain - Final Pleural Fluid Body Fluid Culture - Final Assessment and Plan (1) Leukocytosis Current Visit: Yes Status: Chronic Priority: Medium Code(s): D72.829 - ELEVATED WHITE BLOOD CELL COUNT, UNSPECIFIED SNOMED Code(s): 246712228 Plan: 1patient with a leukocytosis which is most likely related to underlying blood dyscrasia concerning for possible CML and the patient is being monitored closely by oncology services clinically doubt infectious etiology at this patient currently with no fever does not look toxic patient did have a bilateral effusion more on the left side status post thoracocentesis however the white count is only 1000 clinically doubt empyema patient abdominal soft medical examination and no evidence of any cellulitis or joint swelling 2-patient did have blood cultures which are so far negative, patient CRP and procalcitonin were mildly elevated 3- patient to continue with oral Omnicef and monitor clinical course closely Time with Patient: Less than 30
--- NOTE | 2022-09-18 22:15 | P.PN ---
Subjective Progress Note Date: 09/18/22 Principal diagnosis: Leukocytosis Patient is a 76-year-old female with a past medical significant for diabetes mellitus hypertension hyperlipidemia hypothyroidism and the patient did have a blood dyscrasia with elevated white count and concern for possible CML, presenting to the hospital with weakness and fall noticed to have a pleural effusion status post thoracocentesis which was exudative but white count was not elevated in the pleural fluid. On today's evaluation that is 09/18/2022, the patient remains to be afebrile, the patient is breathing comfortably on room air, the patient denies chest pain or shortness of breath, patient did have occasional dry cough no nausea no vomiting. no diarrhea has been reported Objective - Vital Signs Vital signs: Vital Signs Temp 97.5 F L 09/18/22 07:44 Pulse 80 09/18/22 12:01 Resp 18 09/18/22 07:44 BP 148/71 09/18/22 07:44 Pulse Ox 92 L 09/18/22 08:34 FiO2 21 09/15/22 09:09 Intake & Output 09/17/22 09/18/22 09/18/22 18:59 06:59 18:59 Intake Total 900 Output Total 200 Balance -200 900 Weight 59.8 kg Intake: IV 900 Sodium Chloride 0.9% 1, 900 000 ml @ 75 mls/hr IV . [id number] [facility] Rx#:[id number] Output: Urine 200 Other: Voiding Method External Catheter External Catheter # Voids 1 2 # Bowel Movements 1 - Exam GENERAL DESCRIPTION: An elderly female lying in bed in no distress RESPIRATORY SYSTEM: Unlabored breathing , decreased breath sounds at bases HEART: S1 S2 regular rate and rhythm , ABDOMEN: Soft , no tenderness EXTREMITIES: Left upper extremity with minimal bruising, no significant redness or warmth - Labs CBC & Chem 7: 09/16/22 14:11 09/16/22 14:11 Labs: Abnormal Lab Results - Last 24 Hours (Table) 09/17/22 09/17/22 09/18/22 Range/Units 16:59 20:38 07:38 POC Glucose (mg/dL) 385 H 392 H 49 L (70-110) mg/dL 09/18/22 Range/Units 11:58 POC Glucose (mg/dL) 146 H (70-110) mg/dL Microbiology - Last 24 Hours (Table) 09/12/22 15:29 Blood Culture - Final Blood Assessment and Plan (1) Leukocytosis Current Visit: Yes Status: Chronic Priority: Medium Code(s): D72.829 - ELEVATED WHITE BLOOD CELL COUNT, UNSPECIFIED SNOMED Code(s): 581234954 Plan: 1patient with a leukocytosis which is most likely related to underlying blood dyscrasia concerning for possible CML and the patient is being monitored closely by oncology services clinically doubt infectious etiology at this patient currently with no fever does not look toxic patient did have a bilateral effus ion more on the left side status post thoracocentesis however the white count is only 1000 clinically doubt empyema patient abdominal soft medical examination and no evidence of any cellulitis or joint swelling 2-patient did have blood cultures which are so far negative, patient CRP and procalcitonin were mildly elevated 3- patient is slowly clinically improving and will continue with short course of oral Omnicef on discharge Time with Patient: Less than 30
--- NOTE | 2022-09-19 01:45 | PN ---
PROGRESS NOTE SUBJECTIVE: This is a 76-year-old white female, acute renal failure, acute bilateral pleural effusions, macrocytosis, is going to get a second opinion and [facility]. She will go to a prison or go home in the next day or 2 until she gets in to [facility]. Continue on nocturnal oxygen, continue with breathing treatments with DuoNeb and Symbicort. OBJECTIVE: CARDIOVASCULAR: S1-S2. LUNGS: Decreased breath sounds x4. HEMATOLOGY: Negative for Homans. PSYCH: Fair mood and affect. PLAN: Continue with current treatment. The patient has good on room air during the day with her breathing treatments without need of oxygen at night. Continue with COPD treatments and possible discharge home or to a prison in the next 24-48 hours. MMJANL / AMANDAN: [id number] /
[2022-09-19 02:05] LABS: Glucose,Whole Blood 225 mg/dL (70-110)
[2022-09-19] MEDS: INSULIN ASPART (NovoLOG) 100 UNIT/ML VIAL SQ SCH ×3 (02:26→12:44)
[2022-09-19] MEDS: SODIUM CHLORIDE 0.9% 1,000 ML IV SCH (06:03)
[2022-09-19 06:35] LABS: ALT 21 U/L (4-34); AST 25 U/L (14-36); African American GFR (CKD) >90 (>60 ml/min/1.73 sqM); Albumin 2.7 g/dL (3.5-5.0); Albumin/Globulin Ratio 1.1; Alkaline Phosphatase 88 U/L (38-126); Anion Gap 1 mmol/L; Blood Urea Nitrogen 12 mg/dL (7-17); Calcium 7.5 mg/dL (8.4-10.2); Carbon Dioxide 32 mmol/L (22-30); Chloride 103 mmol/L (98-107); Globulin 2.5 g/dL; Glucose 179 mg/dL (74-99); Non-African American GFR(CKD) >90 (>60 ml/min/1.73 sqM); Potassium 4.2 mmol/L (3.5-5.1); Sodium 136 mmol/L (137-145); Total Bilirubin 0.3 mg/dL (0.2-1.3); Total Protein 5.2 g/dL (6.3-8.2)
[2022-09-19 07:08] LABS: HCT 38.5 % (34.0-46.0); HGB 12.4 gm/dL (11.4-16.0); MCH 27.8 pg (25.0-35.0); MCHC 32.1 g/dL (31.0-37.0); MCV 86.5 fL (80.0-100.0); Mean Platelet Volume 13.9; Platelet Count 143 k/uL (150-450); RBC 4.46 m/uL (3.80-5.40); RDW 15.6 % (11.5-15.5)
[2022-09-19 07:27] LABS: Glucose,Whole Blood 196 mg/dL (70-110)
[2022-09-19 07:55] VITALS: RESP 16
[2022-09-19] MEDS: CEFDINIR 300 MG CAP PO SCH (08:26)
[2022-09-19] MEDS: BUMETANIDE 1 MG TAB PO SCH (08:26)
[2022-09-19] MEDS: HEPARIN SODIUM,PORCINE/PF 5,000 UNIT/0.5 ML SYRINGE SQ SCH (08:26)
[2022-09-19] MEDS: CALCIUM CARB-VIT D 500 MG-5 MCG TAB PO SCH (08:27)
[2022-09-19] MEDS: PANTOPRAZOLE 40 MG/10 ML VIAL IV SCH (08:27)
[2022-09-19] MEDS: MAGNESIUM OXIDE 400 MG TAB PO SCH (08:27)
--- NOTE | 2022-09-19 10:50 | P.PN ---
Subjective Progress Note Date: 09/19/22 I am seeing this patient in new consultation today 09/11/2022 in the intensive care unit after the patient experienced a fall yesterday evening resulting in head trauma and a subsequent respiratory arrest. Patient is a 76-year-old white female with past medical history significant for bilateral pleural effusions, oxygen dependent on 5 L/m nasal cannula, COPD, diabetes mellitus type 2, hypertension, hyperlipidemia, hypothyroidism, hydroureternephrosis, and remote history of smoking. Her primary care provider is Dr. Barron. Patient was seen in the office by Dr. Rodgers, for a hospital follow-up. Patient did have a recent hospitalization back in June and again in July of this year. 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 Patient also had large bilateral pleural effusions at that time. Patient did undergo a thoracentesis of the right chest, which showed an exudative effusion based on protein analysis. No cytologically malignant cells were identified. A follow-up bone scan showed focal areas of uptake within the bilateral humeri, distal right tibia segment, ribs, and thoracic spine suggestive of metastatic disease. Oncology was consulted, and the patient did undergo a bone marrow biopsy showing evidence of monoclonal B cell lymphocytosis, non-CLL type. Significance unknown. She has been following with her oncologist, Dr. Connelly. Yesterday evening, the patient was exiting her car in the garage when she "lost her balance", fell landing backwards, and hit her head. She does not remember much after this event. Her apparently heard her yell out and fall. She was reportedly unresponsive, and the did perform CPR. When EMS arrived, the patient was reportedly not effectively breathing, and had to be bagged. She reportedly never lost a pulse. The patient was at her primary care physician office earlier that day, and there were apparently adjustments to her oxygen. She denies any history of seizures, vertigo. She denies any chest pain, heart palpitations, lightheadedness, or prior syncopal episodes. On arrival to the emergency room, the patient was placed on BiPAP. ABGs at that time showed a PaO2 of 180, pCO2 of 59, pH of 7.26. On my evaluation, she is no longer on the BiPAP. The patient is alert, in no acute distress, on 6 L nasal cannula. Chest x-ray on arrival showed bilateral pleural effusions with mild pulmonary vascular congestion. A follow-up chest CTA showed no evidence of pulmonary embolism and redemonstration of the large bilateral pleural effusions and associated atelectasis. CT of the brain and C-spine without contrast showed no acute intracranial abnormalities or evidence of C-spine fracture. There was a small right scapular hematoma. CBC on arrival shows some leukocytosis with a WBC count of 21.6, hemoglobin 11.9, hematocrit 37.8, platelets 120. BMP on arrival shows a sodium 136, potassium 3.4, chloride 99, serum CO2 22, BUN 15, creatinine 0.58, glucose 518. Lactic acid level was elevated at 3.8. Troponin negative 1. NT proBNP low. Patient's vital signs are stable at the moment. Patient was reevaluated today on 09/12/2022, doing well, feeling better today, est x-ray is showing small bilateral pleural effusions, right more so than left. Yesterday I performed left-sided thoracentesis, and today I performed a right- sided thoracentesis. The fluid from today was sent also for different diagnostic studies, clearly the fluid is exudative in nature. Protein is 3.5 g. Cytology is pending, I believe her effusion is most likely secondary to her underlying monoclonal B cell lymphocytosis unless proven otherwise. Patient continues to have a bit of leukocytosis with the risk of 21.1 hemoglobin is 12. ABG on admission showed a pO2 of 180 pCO2 59 pH of 7.26. Basic metabolic profile is normal, renal profile is normal today after the thoracentesis, I wou ld likely recommend transfer the patient out of the ICU to regular medical floor Patient was reevaluated today on 09/13/2022, continues to do well, she is on 2 L nasal cannula, not in any distress, her IV fluid is running at 75 mL/h. A total level is a bit elevated at 1.37, and she doesn't have leukocytosis, will empirically start the patient on antibiotics although no clear-cut evidence of a source of infection. Pleural effusion cultures are pending, the fluid was exudative in nature. Will empirically give antibiotics until the cultures are back. So far the Gram stain is negative and the pleural effusion showed no growth in the last 24 hours today were reviewed, she had basically only glucose of 72 no other labs were done today my plan is to transfer the patient out of the ICU to a regular medical floor. Reevaluated today on 09/14/2022, patient is doing well, she is now on room air, n ot in any distress, she is an overflow and the ICU. Cytology is nondiagnostic, discussed her findings with the pathologist, and he recommended that hematology/oncology orders more markers for evaluation of whether the findings in the pleural fluid are related to her macrocytosis and lymphoproliferative disorder. Apparently the patient will need further molecular studies on the cell block to determine whether this fluid is related to her hematologic issue. Will notify hematology/oncology to address this issue with the pathologist. Labs today are basically unremarkable including basic metabolic profile and CBC. From my perspective the patient could be discharged home and could have follow- up on outpatient basis with Dr. Rodgers and with hematology/oncology The patient is seen today 09/15/2022 in follow-up on the regular medical floor. She is currently sitting up in bed. Awake and alert in no acute distress. Denies any worsening shortness of breath, cough or congestion. She is maintaining good O2 saturations in the 90s on room air. Pleural fluid cultures are pending. Cytology negative for malignancy. Glucose 215. He is continued on DuoNeb inhalations, Symbicort. Antibiotics in the form of ceftriaxone. Remains on oral diuretics. The patient is seen today 09/16/2022 in follow-up on the regular medical floor. She remains awake and alert in no acute distress. Resting comfortably in bed. Maintaining good O2 saturations in the 90s on room air. She's been afebrile. Hemodynamically stable. Pleural fluid cultures revealed no growth. Blood cultures revealed no growth. Blood glucose 205. She remains on normal saline at 75 ML's per hour. Antibiotics in the form of ceftriaxone. Oral diuretics. The patient is seen today 09/17/2022 in follow-up on the regular medical floor. She is currently sitting up in a chair at the bedside having breakfast. Awake and alert in no acute distress. Denies any worsening shortness of breath, cough or congestion. Maintaining good O2 saturations in the 90s on room air. Afebrile. Hemodynamically stable. Blood cultures reveal no growth. Pleural fluid revealed no growth. She remains on DuoNeb inhalations, Symbicort. Normal saline at 75 ML's per hour. Heparin for DVT prophylaxis. Antibiotics in the form of Omnicef. The patient is seen today 09/18/2022 in follow-up on the regular medical floor. Awake and alert in no acute distress. Denies any worsening shortness of breath, cough or congestion. Pleural fluid cultures revealed no growth. Glucose 73. She remains on DuoNeb inhalations, Symbicort. Antibiotics in the form of Omnicef. The patient is seen today 09/19/2022 in follow-up on the regular medical floor. She is sitting up in bed. Awake and alert in no acute distress. No worsening shortness of breath, cough or congestion. Continues to maintain good O2 saturations in the 90s on room air. She's afebrile. Hemodynamically stable. Blood cultures revealed no growth. Pleural fluid cultures revealed no growth. White count 15.5. Hemoglobin 12.4. Sodium 136. Potassium 4.2. Bicarb 32. BUN 12. Creatinine 0.47. Glucose 179. She remains on heparin for DVT prophylaxis. Antibiotics in the form of Omnicef. Objective - Vital Signs Vital signs: Vital Signs Temp 97.3 F L 09/19/22 07:03 Pulse 73 09/19/22 07:03 Resp 16 09/19/22 07:03 BP 126/73 09/19/22 07:03 Pulse Ox 94 L 09/19/22 09:02 FiO2 21 09/15/22 09:09 Intake & Output 09/18/22 09/19/22 09/19/22 18:59 06:59 18:59 Weight 59.5 kg Other: # Voids 2 1 # Bowel Movements 1 - Exam GENERAL EXAM: Alert, frail, 76 year female, sitting up in bed, on room air, comfortable in no apparent distress. HEAD: Normocephalic. EYES: Normal reaction of pupils, equal size. NOSE: Clear with pink turbinates. THROAT: No erythema or exudates. NECK: No masses, no JVD. CHEST: No chest wall deformity. LUNGS: Equal air entry with crackles in the bilateral bases. CVS: S1 and S2 normal with no audible murmur, regular rhythm. ABDOMEN: No hepatosplenomegaly, normal bowel sounds, no guarding or rigidity. SPINE: No scoliosis or deformity SKIN: No rashes CENTRAL NERVOUS SYSTEM: No focal deficits, tone is normal in all 4 extremities. EXTREMITIES: There is no peripheral edema. No clubbing, no cyanosis. Peripheral pulses are intact. - Labs CBC & Chem 7: 09/19/22 05:55 09/19/22 05:55 Labs: Abnormal Lab Results - Last 24 Hours (Table) 09/18/22 09/18/22 09/18/22 Range/Units 11:58 17:15 20:06 WBC (3.8-10.6) k/uL RDW (11.5-15.5) % Sodium (137-145) mmol/L Carbon Dioxide (22-30) mmol/L Creatinine (0.52-1.04) mg/dL Glucose (74-99) mg/dL POC Glucose (mg/dL) 146 H 208 H 274 H (70-110) mg/dL Calcium (8.4-10.2) mg/dL Total Protein (6.3-8.2) g/dL Albumin (3.5-5.0) g/dL 09/19/22 09/19/22 09/19/22 Range/Units 02:00 05:55 05:55 WBC 15.5 H (3.8-10.6) k/uL RDW 15.6 H (11.5-15.5) % Sodium 136 L (137-145) mmol/L Carbon Dioxide 32 H (22-30) mmol/L Creatinine 0.47 L (0.52-1.04) mg/dL Glucose 179 H (74-99) mg/dL POC Glucose (mg/dL) 225 H (70-110) mg/dL Calcium 7.5 L (8.4-10.2) mg/dL Total Protein 5.2 L (6.3-8.2) g/dL Albumin 2.7 L (3.5-5.0) g/dL 09/19/22 Range/Units 07:25 WBC (3.8-10.6) k/uL RDW (11.5-15.5) % Sodium (137-145) mmol/L Carbon Dioxide (22-30) mmol/L Creatinine (0.52-1.04) mg/dL Glucose (74-99) mg/dL POC Glucose (mg/dL) 196 H (70-110) mg/dL Calcium (8.4-10.2) mg/dL Total Protein (6.3-8.2) g/dL Albumin (3.5-5.0) g/dL Microbiology - Last 24 Hours (Table) 09/12/22 15:29 Blood Culture - Final Blood Assessment and Plan Assessment: Bilateral pleural effusions, exudative in nature, most likely secondary to her underlying monoclonal B-cell lymphocytosis based on previous bone marrow biopsy. Status post left-sided thoracentesis on 09/11/2022 and right-sided thoracentesis on 09/12/2022. Cytology negative for malignancy 2. Acute on chronic hypoxic and acute hypercapnic respiratory failure secondary to above Type 2 diabetes with no complications. Status post head trauma with right sided scalp hematoma Monoclonal B-cell lymphocytosis and recent bone marrow biopsy Chronic hypoxic respiratory failure on 5 L nasal cannula at home Essential hypertension Hypothyroidism Ex-smoker History of right sided hydronephrosis Plan: The patient was seen and evaluated Stable and on room air DuoNeb inhalations, Symbicort discontinued Cleared for discharge from the pulmonary standpoint Follow-up in our office in 1-2 weeks' I have personally seen and examined the patient, performed the documentation and the assessment and plan as written. Number of minutes spent on the visit: 10
[2022-09-19 11:28] VITALS: BP 123/70; TEMP 97.7
[2022-09-19 11:43] LABS: Band Neutrophils % 1 %
[2022-09-19 11:45] LABS: Eosinophils # (M) 0.15 k/uL (0-0.7); WBC 15.3 k/uL (3.8-10.6)
[2022-09-19 11:48] LABS: Lymphocytes # (M) 2.75 k/uL (1.0-4.8); Monocytes # (M) 2.75 k/uL (0-1.0); Neutrophils % (M) 63 %; Nucleated Red Blood Cells 0 /100 WBC (0-0); Total Cells Counted 200
[2022-09-19 11:51] LABS: Large Platelets Present; RBC Morphology Normal
[2022-09-19 11:53] LABS: Glucose,Whole Blood 320 mg/dL (70-110)
[2022-09-19 12:10] VITALS: BMI 24.7
--- NOTE | 2022-09-19 14:37 | P.PN ---
Subjective Progress Note Date: 09/19/22 Principal diagnosis: Leukocytosis Patient is a 76-year-old female with a past medical significant for diabetes mellitus hypertension hyperlipidemia hypothyroidism and the patient did have a blood dyscrasia with elevated white count and concern for possible CML, presenting to the hospital with weakness and fall noticed to have a pleural effusion status post thoracocentesis which was exudative but white count was not elevated in the pleural fluid. On today's evaluation that is 09/19/2022, the patient continues to be afebrile, the patient is breathing comfortably on room air, the patient denies chest pain or shortness of breath, patient did have occasional cough but no sputum production no nausea vomiting or abdominal pain or diarrhea. Patient is feeling better and wants to go home Objective - Vital Signs Vital signs: Vital Signs Temp 97.7 F 09/19/22 11:13 Pulse 78 09/19/22 11:13 Resp 16 09/19/22 11:13 BP 123/70 09/19/22 11:13 Pulse Ox 93 L 09/19/22 11:13 FiO2 21 09/15/22 09:09 Intake & Output 09/18/22 09/19/22 09/19/22 18:59 06:59 18:59 Weight 59.5 kg 59.5 kg Other: # Voids 2 1 1 # Bowel Movements 1 - Exam GENERAL DESCRIPTION: An elderly female lying in bed in no distress RESPIRATORY SYSTEM: Unlabored breathing , decreased breath sounds at bases HEART: S1 S2 regular rate and rhythm , ABDOMEN: Soft , no tenderness EXTREMITIES: Left upper extremity with minimal bruising, no significant redness or warmth - Labs CBC & Chem 7: 09/19/22 05:55 09/19/22 05:55 Labs: Abnormal Lab Results - Last 24 Hours (Table) 09/18/22 09/18/22 09/19/22 Range/Units 17:15 20:06 02:00 WBC (3.8-10.6) k/uL RDW (11.5-15.5) % Plt Count (150-450) k/uL Neutrophils # (Manual) (1.3-7.7) k/uL Monocytes # (Manual) (0-1.0) k/uL Sodium (137-145) mmol/L Carbon Dioxide (22-30) mmol/L Creatinine (0.52-1.04) mg/dL Glucose (74-99) mg/dL POC Glucose (mg/dL) 208 H 274 H 225 H (70-110) mg/dL Calcium (8.4-10.2) mg/dL Total Protein (6.3-8.2) g/dL Albumin (3.5-5.0) g/dL 09/19/22 09/19/22 09/19/22 Range/Units 05:55 05:55 07:25 WBC 15.3 H (3.8-10.6) k/uL RDW 15.6 H (11.5-15.5) % Plt Count 143 L (150-450) k/uL Neutrophils # (Manual) 9.70 H (1.3-7.7) k/uL Monocytes # (Manual) 2.75 H (0-1.0) k/uL Sodium 136 L (137-145) mmol/L Carbon Dioxide 32 H (22-30) mmol/L Creatinine 0.47 L (0.52-1.04) mg/dL Glucose 179 H (74-99) mg/dL POC Glucose (mg/dL) 196 H (70-110) mg/dL Calcium 7.5 L (8.4-10.2) mg/dL Total Protein 5.2 L (6.3-8.2) g/dL Albumin 2.7 L (3.5-5.0) g/dL 09/19/22 Range/Units 11:49 WBC (3.8-10.6) k/uL RDW (11.5-15.5) % Plt Count (150-450) k/uL Neutrophils # (Manual) (1.3-7.7) k/uL Monocytes # (Manual) (0-1.0) k/uL Sodium (137-145) mmol/L Carbon Dioxide (22-30) mmol/L Creatinine (0.52-1.04) mg/dL Glucose (74-99) mg/dL POC Glucose (mg/dL) 320 H (70-110) mg/dL Calcium (8.4-10.2) mg/dL Total Protein (6.3-8.2) g/dL Albumin (3.5-5.0) g/dL Microbiology - Last 24 Hours (Table) 09/12/22 15:29 Blood Culture - Final Blood Assessment and Plan (1) Leukocytosis Current Visit: Yes Status: Chronic Priority: Medium Code(s): D72.829 - ELEVATED WHITE BLOOD CELL COUNT, UNSPECIFIED SNOMED Code(s): 977756626 Plan: 1patient with a leukocytosis which is most likely related to underlying blood dyscrasia concerning for possible CML and the patient is being monitored closely by oncology services clinically doubt infectious etiology at this patient currently with no fever does not look toxic patient did have a bilateral effusion more on the left side status post thoracocentesis however the white count is only 1000 clinically doubt empyema patient abdominal soft medical examination and no evidence of any cellulitis or joint swelling 2-patient did have blood cultures which are so far negative, patient CRP and procalcitonin were mildly elevated 3- patient has shown overall clinical improvement plan is to continue with oral Omnicef on discharge 7 days on discharge Time with Patient: Less than 30
[2022-09-19 14:51] VITALS: PULSE 84
--- NOTE | 2022-09-19 15:14 | DS ---
DISCHARGE SUMMARY DISCHARGE DIAGNOSES: 1. Lactic acidosis. 2. Mastocytosis. 3. Acute hypoxemic respiratory failure. 4. Bilateral pleural effusion. 5. Congestive heart failure. 6. Pulmonary hypertension. 7. Chronic obstructive pulmonary disease. She needs to wear oxygen 2 L at night at the alf every night and during the day when she needs it. DISCHARGE MEDICATIONS: She will go home on the following medicines: 1. Symbicort 160/4.5 two puffs b.i.d. 2. DuoNeb updrafts q.i.d. 3. Magnesium oxide 400 b.i.d. 4. Omnicef 300 b.i.d. for a week 7 days. 5. Calcium carbonate with vitamin D 500 mg-5 mcg b.i.d. 6. Synthroid 125 mcg daily. 7. Claritin 10 mg daily. 8. Zofran 4 mg q.6 p.r.n. for nausea. 9. Omeprazole 40 mg daily at supper. 10.Singulair 10 mg daily. 11.Simvastatin 40 mg q.h.s. 12.Kenalog cream topically b.i.d. to the rash. 13.Trilogy Ellipta 200 one puff daily. 14.Bumex 1 mg daily. CONDITION: Stable. PROGNOSIS: Guarded. Ambulate as tolerated. HOSPITAL COURSE: She came to the hospital with acute hypoxemic respiratory distress and bilateral pleural effusions. Had thoracentesis x2, which drained a lot of fluid off her lungs. Medications were readjusted and she stabilized to follow up as an outpatient. She is going to get appointment at [facility] for Oncology, secondary to pain and CML. She has history of CML, but her main problem is congestive heart failure, secondary to extremely bad COPD, status post COVID. She needs to stay on her updraft treatments inhaler, give her Symbicort or the Trelegy, not both and then she needs her nebulizer treatments 4 times a day, and then she needs to wear oxygen at night. PT and OT at the alf. Prognosis guarded. Diet as tolerated. MMODL / IJN: [id number] /
== END 2022-09-19 15:34 | DRG 840 ==
LOC: EC 17:14 → 2SICU 19:39 → 5NMEDONC 09-14 17:42
PROVIDERS: ADMIT Family Medicine; ATTEND Family Medicine
PROC: 0W9B3ZZ Drainage of Left Pleural Cavity, Percutaneous Approach (ICD-10-PCS; 2022-09-11)
PROC: 0W993ZZ Drainage of Right Pleural Cavity, Percutaneous Approach (ICD-10-PCS; principal; 2022-09-12)
DX: D47.02 Systemic mastocytosis (principal); J96.21 Acute and chronic respiratory failure with hypoxia; J96.22 Acute and chronic respiratory failure with hypercapnia; D84.9 Immunodeficiency, unspecified; E87.20 Acidosis, unspecified; J90 Pleural effusion, not elsewhere classified; D69.3 Immune thrombocytopenic purpura; C79.51 Secondary malignant neoplasm of bone; I50.30 Unspecified diastolic (congestive) heart failure; C92.10 Chronic myeloid leukemia, BCR/ABL-positive, not having achieved remission; J98.11 Atelectasis; I27.20 Pulmonary hypertension, unspecified; E11.649 Type 2 diabetes mellitus with hypoglycemia without coma; E88.89 Other specified metabolic disorders; J84.10 Pulmonary fibrosis, unspecified; I11.0 Hypertensive heart disease with heart failure; E11.65 Type 2 diabetes mellitus with hyperglycemia; J44.9 Chronic obstructive pulmonary disease, unspecified; Z79.4 Long term (current) use of insulin; S09.90XA Unspecified injury of head, initial encounter; E83.51 Hypocalcemia; R54 Age-related physical debility; Z99.81 Dependence on supplemental oxygen; E03.9 Hypothyroidism, unspecified; S40.011A Contusion of right shoulder, initial encounter; E78.5 Hyperlipidemia, unspecified; D75.89 Other specified diseases of blood and blood-forming organs; S00.03XA Contusion of scalp, initial encounter; E83.42 Hypomagnesemia; S40.022A Contusion of left upper arm, initial encounter; W18.30XA Fall on same level, unspecified, initial encounter; Z87.891 Personal history of nicotine dependence; Z79.890 Hormone replacement therapy; Z79.899 Other long term (current) drug therapy; Z79.51 Long term (current) use of inhaled steroids; Z86.16 Personal history of COVID-19
CPT/HCPCS: 36415; 36600; 70450; 71045; 71275; 72125; 76604; 80048; 80053; 82330; 82805; 82945; 83036; 83605; 83615; 83735; 83880; 84132; 84145; 84155; 84157; 84484; 85025; 85610; 85730; 86140; 87040; 87070; 87205; 88108; 88184; 88185; 88305; 88341; 88342; 89050; 93005; 94640; 94760; 99291

== ENCOUNTER → 2022-10-10 | Outpatient (CLI) | payer MEDICARE, OTHER ==
--- NOTE | 2022-10-10 10:54 | US ---
EXAMINATION TYPE: US chest DATE OF EXAM: 10/10/2022 COMPARISON: NONE CLINICAL INDICATION: Female, 76 years old with history of [id number] EFFUSION, NOT ELSEWHERE CLASSIFI ED; TECHNIQUE: Targeted ultrasound of the posterior lower bilateral hemithoraces EXAM MEASUREMENTS: Right Pleural Effusion pocket size: 11.8 cm Right skin surface to fluid distance: 2.0 cm Left Pleural Effusion pocket size: 10.0 cm Left skin surface to fluid distance: 2.1 cm Right side marked for possible thoracentesis outside the dept. Left side marked for possible thoracentesis outside the dept. Pulmonologists are able to review the images in the patient?s EMR. IMPRESSIONS: As above
== END | disposition home or self-care (01) ==
LOC: RADUSWWP 10:28
PROVIDERS: ATTEND Internal Medicine Critical Care Medicine
DX: J90 Pleural effusion, not elsewhere classified (principal)
CPT/HCPCS: 76604

== ENCOUNTER → 2022-10-10 | Day surgery (SDC) | payer MEDICARE, OTHER ==
[~2022-10-10] MED LIST: SODIUM CHLORIDE 0.9% 500 ML 500 ML in EMPTY BAG 1 BAG IV PRN
[2022-10-10 11:14] VITALS: TEMP 97.5
--- NOTE | 2022-10-10 12:46 | XR ---
EXAMINATION TYPE: XR chest 1V portable DATE OF EXAM: 10/10/2022 HISTORY: Shortness of breath. COMPARISON: 09/12/2022 TECHNIQUE: Single view of the chest is submitted. FINDINGS: Demonstrated are scattered senescent parenchymal change. No evidence for right-sided pneumothorax in a patient who is status post thoracentesis. Persistent ri ght basilar effusion. There is increasing left basilar effusion. Underlying atelectasis or infiltrate not excluded. The heart is stable. Hilar and mediastinal structures are within normal limits. Degenerative changes are seen of the dorsal spine. IMPRESSION: 1. No evidence for right-sided pneumothorax in a patient who is status post thoracentesis. Persisten t right basilar effusion. There is increasing left basilar effusion.
--- NOTE | 2022-10-10 12:56 | P.PCN ---
Date of Procedure: 10/10/22 Preoperative Diagnosis: bilateral pleural effusion Postoperative Diagnosis: bilateral pleural effusion Procedure(s) Performed: right-sided thoracentesis Anesthesia: local Surgeon: Katie Rodgers Estimated Blood Loss (ml): 0 Pathology: other Condition: stable Disposition: same day Operative Findings: A time out was performed and the chest x-ray was reviewed, the appropriate side was confirmed and marked. My hands were washed immediately prior to the procedure. I wore a surgical cap, mask with protective eyewear, sterile gown and sterile gloves throughout the procedure. The patient was prepped and draped in a sterile manner using chlorhexidine scrub after the appropriate level was percussed and confirmed by ultrasound. 1% lidocaine was used to anesthesize the skin, subcutaneous tissue, superior aspect of the rib periosteum and parietal pleura. A finder needle was then introduced over the superior aspect of the rib to locate the pleural fluid; 2colored fluid was aspirated at a depth of approximately 2 cm. A 10-blade scalpel was used to heather the skin at the insertion site. The [id number] needle was then introduced through the skin incision into the pleural space using negative aspiration pressure and the red colometric indicator to confirm appropriate positioning of the needle. The thoracentesis catheter was then threaded without difficulty. 1600 ml of turbid colored fluid was removed without difficulty. The catheter was then removed. No immediate complications were noted during the procedure. A post-procedure chest x-ray is pending at the time of this note. The fluid was sent for studies. Estimated blood loss is 0cc
[2022-10-10 13:27] VITALS: BP 106/54; PULSE 89; RESP 16
[2022-10-11 05:15] LABS: Appearance,BF Cloudy (Clear)
[2022-10-11 06:34] LABS: Glucose, BF Source Pleural fluid; Glucose, Body Fluid 389 mg/dL; LDH, Body Fluid Source Pleural fluid; T. Protein, Body Fluid Source Pleural fluid; Total Protein, Body Fluid 3540 mg/dL
== END ==
LOC: PROCWHC3 10:48
PROVIDERS: ATTEND Internal Medicine Critical Care Medicine
DX: J90 Pleural effusion, not elsewhere classified (principal)
CPT/HCPCS: 32554; 71045; 82945; 83615; 84157; 88108; 88305; 88341; 88342; 89050

== ENCOUNTER 2022-10-11 12:57 | Inpatient (IN) | payer MEDICARE, OTHER ==
[2022-10-11 14:05] LABS: ALT 14 U/L (4-34); AST 23 U/L (14-36); African American GFR (CKD) >90 (>60 ml/min/1.73 sqM); Albumin 3.6 g/dL (3.5-5.0); Alkaline Phosphatase 114 U/L (38-126); Anion Gap 8 mmol/L; Blood Urea Nitrogen 22 mg/dL (7-17); Calcium 8.1 mg/dL (8.4-10.2); Carbon Dioxide 35 mmol/L (22-30); Chloride 93 mmol/L (98-107); Glucose 263 mg/dL (74-99); Non-African American GFR(CKD) >90 (>60 ml/min/1.73 sqM); Potassium 4.1 mmol/L (3.5-5.1); Sodium 136 mmol/L (137-145); Total Bilirubin 0.6 mg/dL (0.2-1.3); Total Protein 6.4 g/dL (6.3-8.2)
[2022-10-11 14:09] LABS: HCT 38.6 % (34.0-46.0); HGB 12.7 gm/dL (11.4-16.0); MCH 28.2 pg (25.0-35.0); MCHC 32.8 g/dL (31.0-37.0); MCV 85.9 fL (80.0-100.0); Mean Platelet Volume 13.4; Platelet Count 104 k/uL (150-450); RDW 15.4 % (11.5-15.5)
[2022-10-11 14:32] LABS: Lymphocytes # (M) 1.82 k/uL (1.0-4.8); Monocytes # (M) 1.26 k/uL (0-1.0); Neutrophils # (M) 10.92 k/uL (1.3-7.7); Neutrophils % (M) 78 %; Nucleated Red Blood Cells 0 /100 WBC (0-0); Total Cells Counted 100
[2022-10-11 14:33] LABS: Large Platelets Present
[2022-10-11] MEDS ORDERED: FUROSEMIDE 10 MG/ML 4 ML VIAL IV STA (15:15)
--- NOTE | 2022-10-11 15:19 | ED ---
General Adult HPI - General Chief complaint: Recheck/Abnormal Lab/Rx Stated complaint: Water build up in both legs Time Seen by Provider: 10/11/22 14:53 Source: patient, RN notes reviewed Mode of arrival: wheelchair Limitations: no limitations - History of Present Illness Initial comments: Patient is a pleasant 76-year-old female presenting to the emergency Department with leg edema. Symptoms have been present for the past month. Patient also has some dyspnea. Patient is somewhat a poor historian. Patient has been seen for this previously. Patient did see her doctor today who advised her to come to the hospital. No chest pain. Patient is being evaluated for bone lesions without specific diagnosis at this time. - Related Data Home Medications Medication Instructions Recorded Confirmed Simvastatin 40 mg PO HS 07/03/22 10/11/22 Bumetanide [BUMEX] 1 mg PO DAILY 09/10/22 10/11/22 Ferrous Sulfate [Iron (65 MG 325 mg PO DAILY 09/10/22 10/11/22 Elemental)] Fluticasone/Umeclidin/Vilanter 1 puff INHALATION RT-DAILY 09/10/22 10/11/22 [Trelegy Ellipta 200-62.5-25] Loratadine [Claritin] 10 mg PO DAILY 09/10/22 10/11/22 Montelukast [Singulair] 10 mg PO DAILY 09/10/22 10/11/22 Omeprazole 40 mg PO DAILY 09/10/22 10/11/22 Ondansetron [Zofran] 4 mg PO Q6H PRN 09/10/22 10/11/22 Calcium Carb-Vit D 500Mg-5Mcg 1 tab PO BID-W/MEALS 10/11/22 10/11/22 [Oscal 500+D 5 Mcg (200 Iu)] Furosemide [Lasix] 40 mg PO BID 10/11/22 10/11/22 Insulin Glargine-Yfgn [Semglee 15 unit SQ HS 10/11/22 10/11/22 (Yfgn) Pen] Insulin Lispro 4 units SQ ACHS PRN 10/11/22 10/11/22 Insulin Lispro See Protocol SQ ACHS PRN 10/11/22 10/11/22 Levothyroxine Sodium [Synthroid] 150 mcg PO DAILY 10/11/22 10/11/22 Previous Rx's Medication Instructions Recorded Acetaminophen Tab [Tylenol] 650 mg PO Q6HR PRN tab 07/10/22 Ipratropium-Albuterol Nebulize 3 ml INHALATION RT-QID each 09/18/22 [Duoneb 0.5 mg-3 mg/3 ml Soln] Allergies Allergy/AdvReac Type Severity Reaction Status Date / Time No Known Allergies Allergy Verified 10/11/22 16:04 Review of Systems ROS Statement: Those systems with pertinent positive or pertinent negative responses have been documented in the HPI. ROS Other: All systems not noted in ROS Statement are negative. Constitutional: Denies: fever Eyes: Denies: eye pain ENT: Denies: ear pain Respiratory: Reports: as per HPI, dyspnea Cardiovascular: Denies: chest pain Endocrine: Reports: fatigue Gastrointestinal: Denies: abdominal pain Genitourinary: Denies: dysuria Musculoskeletal: Denies: back pain Skin: Denies: rash Neurological: Denies: weakness Past Medical History Past Medical History: Diabetes Mellitus, Hyperlipidemia, Hypertension, Thyroid Disorder Additional Past Medical History / Comment(s): left leg swells at end of day every day for about a year History of Any Multi-Drug Resistant Organisms: None Reported Past Surgical History: Cholecystectomy Additional Past Surgical History / Comment(s): cholecystectomy, cataract surgery Past Anesthesia/Blood Transfusion Reactions: No Reported Reaction Past Psychological History: No Psychological Hx Reported Smoking Status: Former smoker - Past Family History Father Family Medical History: Cancer, Prostate Disorder Additional Family Medical History / Comment(s): prostate CA Mother Additional Family Medical History / Comment(s): parkinsons General Exam Limitations: no limitations General appearance: alert, in no apparent distress Head exam: Present: normocephalic Eye exam: Present: normal appearance Neck exam: Present: normal inspection Respiratory exam: Present: decreased breath sounds (Bilateral bases) Cardiovascular Exam: Present: regular rate, normal rhythm GI/Abdominal exam: Present: soft. Absent: tenderness Extremities exam: Present: pedal edema. Absent: calf tenderness Back exam: Present: normal inspection Neurological exam: Present: alert Psychiatric exam: Present: normal affect, normal mood Skin exam: Present: normal color Course Vital Signs 10/11/22 10/11/22 10/11/22 13:00 15:46 15:47 Temperature 98.2 F 97.6 F Pulse Rate 90 79 Respiratory 22 19 20 Rate Blood Pressure 120/59 127/52 O2 Sat by Pulse 87 L 94 L Oximetry Medical Decision Making - Medical Decision Making Was pt. sent in by a medical professional or institution (, [facility], FOOT SETTER, urgent care, hospital, or retirement...) When possible be specific @ -Patient was sent in by Dr. Barron Did you speak to anyone other than the patient for history (EMS, parent, family, police, friend...)? What history was obtained from this source @ -Family helps provide history as patient is a poor historian Did you review nursing and triage notes (agree or disagree)? Why? @ -I reviewed and agree with nursing and triage notes Were old charts reviewed (outside hosp., previous admission, EMS record, old EKG, old radiological studies, urgent care reports/EKG's, retirement records)? Report findings @ -No old charts were reviewed Differential Diagnosis (chest pain, altered mental status, abdominal pain women, abdominal pain men, vaginal bleeding, weakness, fever, dyspnea, syncope, headache, dizziness, GI bleed, back pain, seizure, CVA, palpatations, mental health, musculoskeletal)? @ -Differential Dyspnea: Coronary syndrome, arrhythmia, tamponade, asthma, COPD, pulmonary embolism, pneumonia, pneumothorax, pulmonary effusion, anaphylaxis, diabetic ketoacidosis, flailed chest, pulmonary contusion, diaphragmatic rupture, anemia, neuromuscular, this is not meant to be an all-inclusive list. EKG interpreted by me (3pts min.). @ -As above X-rays interpreted by me (1pt min.). @ -Chest x-ray showed bilateral effusions CT interpreted by me (1pt min.). @ -None done U/S interpreted by me (1pt. min.). @ -None done What testing was considered but not performed or refused? (CT, X-rays, U/S, labs)? Why? @ -None What meds were considered but not given or refused? Why? @ -None Did you discuss the management of the patient with other professionals (professionals i.e. LINA Alba, FOOT SETTER, lab, RT, psych nurse, social work msw, apparel patternmaker, teacher, student officer, gearcase assembler)? Give summary @ -Case was discussed with Dr. Barron who is familiar with and will admit his patient Was smoking cessation discussed for >3mins.? @ -No Was critical care preformed (if so, how long)? @ -No Were there social determinants of health that impacted care today? How? (Homelessness, low income, unemployed, alcoholism, drug addiction, transportation, low edu. Level, literacy, decrease access to med. care, group home, rehab)? @ -No Was there de-escalation of care discussed even if they declined (Discuss DNR or withdrawal of care, Hospice)? DNR status @ -No What co-morbidities impacted this encounter? (DM, HTN, Smoking, COPD, CAD, Cancer, CVA, ARF, Chemo, Hep., AIDS, mental health diagnosis, sleep apnea, morbid obesity)? @ -None Was patient admitted / discharged? Hospital course, mention meds given and route, prescriptions, significant lab abnormalities, going to OR and other pertinent info. @ -Patient reevaluated. Patient and family are made aware of plan. Patient will be admitted with cardiology consult is requested Undiagnosed new problem with uncertain prognosis? @ -No Drug Therapy requiring intensive monitoring for toxicity (Heparin, Nitro, Insulin, Cardizem)? @ -No Were any procedures done? @ -No Diagnosis/symptom? @ -CHF Acute, or Chronic, or Acute on Chronic? @ -Acute Uncomplicated (without systemic symptoms) or Complicated (systemic symptoms)? @ -default Side effects of treatment? @ -No Exacerbation, Progression, or Severe Exacerbation? @ -No Poses a threat to life or bodily function? How? (Chest pain, [place], [place], pneumonia, PE, COPD, DKA, ARF, appy, cholecystitis, CVA, Diverticulitis, Homicidal, Suicidal, threat to staff... and all critical care pts) @ -No - Lab Data Result diagrams: 10/11/22 13:17 10/11/22 13:17 Lab Results 10/11/22 10/11/22 10/11/22 Range/Units 13:17 13:17 13:17 WBC 14.0 H (3.8-10.6) k/uL RBC 4.50 (3.80-5.40) m/uL Hgb 12.7 (11.4-16.0) gm/dL Hct 38.6 (34.0-46.0) % MCV 85.9 (80.0-100.0) fL MCH 28.2 (25.0-35.0) pg MCHC 32.8 (31.0-37.0) g/dL RDW 15.4 (11.5-15.5) % Plt Count 104 L (150-450) k/uL MPV 13.4 Neutrophils % (Manual) 78 % Lymphocytes % (Manual) 13 % Monocytes % (Manual) 9 % Neutrophils # (Manual) 10.92 H (1.3-7.7) k/uL Lymphocytes # (Manual) 1.82 (1.0-4.8) k/uL Monocytes # (Manual) 1.26 H (0-1.0) k/uL Nucleated RBCs 0 (0-0) /100 WBC Manual Slide Review Performed Large Platelets Present Sodium 136 L (137-145) mmol/L Potassium 4.1 (3.5-5.1) mmol/L Chloride 93 L (98-107) mmol/L Carbon Dioxide 35 H (22-30) mmol/L Anion Gap 8 mmol/L BUN 22 H (7-17) mg/dL Creatinine 0.50 L (0.52-1.04) mg/dL Est GFR (CKD-EPI)AfAm >90 (>60 ml/min/1.73 sqM) Est GFR (CKD-EPI)NonAf >90 (>60 ml/min/1.73 sqM) Glucose 263 H (74-99) mg/dL Plasma Lactic Acid Yoni 0.8 (0.7-2.0) mmol/L Calcium 8.1 L (8.4-10.2) mg/dL Total Bilirubin 0.6 (0.2-1.3) mg/dL AST 23 (14-36) U/L ALT 14 (4-34) U/L Alkaline Phosphatase 114 (38-126) U/L Troponin I (0.000-0.034) ng/mL NT-Pro-B Natriuret Pep pg/mL Total Protein 6.4 (6.3-8.2) g/dL Albumin 3.6 (3.5-5.0) g/dL 10/11/22 10/11/22 Range/Units 13:17 13:17 WBC (3.8-10.6) k/uL RBC (3.80-5.40) m/uL Hgb (11.4-16.0) gm/dL Hct (34.0-46.0) % MCV (80.0-100.0) fL MCH (25.0-35.0) pg MCHC (31.0-37.0) g/dL RDW (11.5-15.5) % Plt Count (150-450) k/uL MPV Neutrophils % (Manual) % Lymphocytes % (Manual) % Monocytes % (Manual) % Neutrophils # (Manual) (1.3-7.7) k/uL Lymphocytes # (Manual) (1.0-4.8) k/uL Monocytes # (Manual) (0-1.0) k/uL Nucleated RBCs (0-0) /100 WBC Manual Slide Review Large Platelets Sodium (137-145) mmol/L Potassium (3.5-5.1) mmol/L Chloride (98-107) mmol/L Carbon Dioxide (22-30) mmol/L Anion Gap mmol/L BUN (7-17) mg/dL Creatinine (0.52-1.04) mg/dL Est GFR (CKD-EPI)AfAm (>60 ml/min/1.73 sqM) Est GFR (CKD-EPI)NonAf (>60 ml/min/1.73 sqM) Glucose (74-99) mg/dL Plasma Lactic Acid Yoni (0.7-2.0) mmol/L Calcium (8.4-10.2) mg/dL Total Bilirubin (0.2-1.3) mg/dL AST (14-36) U/L ALT (4-34) U/L Alkaline Phosphatase (38-126) U/L Troponin I <0.012 (0.000-0.034) ng/mL NT-Pro-B Natriuret Pep 593 pg/mL Total Protein (6.3-8.2) g/dL Albumin (3.5-5.0) g/dL Disposition Clinical Impression: Bilateral pleural effusion, CHF (congestive heart failure) Disposition: ADMITTED IP TO THIS HOSP Is patient prescribed a controlled substance at d/c from ED?: No Referrals: Steve Barron MD [Primary Care Provider] - 1-2 days Time of Disposition: 16:16
--- NOTE | 2022-10-11 15:36 | XR ---
EXAMINATION TYPE: XR chest 2V DATE OF EXAM: 10/11/2022 3:31 PM COMPARISON: Chest radiographs from 10/10/2022 TECHNIQUE: XR chest 2V Frontal and lateral views of the chest. CLINICAL INDICATION:Female, 76 years old with history of dyspnea; FINDINGS: Lungs/Pleura: Similar blunting of both costophrenic angles with associated atelectasis. No pneumothor ax or focal consolidation. Pulmonary vascularity: Unremarkable. Heart/mediastinum: Cardiomediastinal silhouette is obscured due to overlying and adjacent opacities. Musculoskeletal: No acute osseous pathology. Other: Cholecystectomy clips in right upper quadrant. IMPRESSION: Similar moderate size bilateral pleural effusions.
[2022-10-11] MEDS ORDERED: ASPIRIN 325 MG TAB PO STA (16:16)
[2022-10-11] MEDS: FUROSEMIDE 10 MG/ML 4 ML VIAL IV SCH (16:55)
[2022-10-11] MEDS ORDERED: ONDANSETRON 4 MG TAB PO PRN (23:55)
[2022-10-12] MEDS ORDERED: BUMETANIDE 0.25 MG/ML 4 ML VIAL IVP SCH
--- NOTE | 2022-10-12 02:36 | HP ---
HISTORY AND PHYSICAL HISTORY OF PRESENT ILLNESS: This is a 76-year-old white female who was admitted to hospital with fluid overload, large amounts of water gain and fluid in the extremities. She had thoracentesis done yesterday, has one more planned in the future. Evaluated for bone lesions with some macrocytosis versus CMML. HOME MEDICINES: 1. Simvastatin 40 daily. 2. Bumex 1 mg daily. 3. Ferrous sulfate 325 daily. 4. Cardizem 10 mg daily. 5. Celexa 10 mg daily. 6. Omeprazole 40 daily. 7. Zofran. 8. Oscal daily. 9. Just on insulin at home 4 units a.c. h.s. 10.Levothyroxine 150 daily. REVIEW OF SYSTEMS: A 14-point review of systems as mentioned above, shortness of breath largely when awaking, extreme leg heaviness, unable to ambulate. ALLERGIES: Negative . FAMILY HISTORY: Father with prostate cancer. Mother with Parkinson's. PAST SURGICAL HISTORY: Cholecystectomy, cataract surgery. PHYSICAL EXAMINATION: VITAL SIGNS: Reviewed. Afebrile. CARDIOVASCULAR: S1, S2. LUNGS: Rales at the bases. HEMATOLOGY: Negative for Homans. PSYCH: Fair mood and affect. NEUROLOGIC: Alert and oriented x3. Cranial nerves intact. HEENT: Pupils equal, round, and reactive. ASSESSMENT AND PLAN: Leukocytosis, thrombocytopenia, prerenal azotemia, CHF diastolic, fluid overload, bilateral pleural effusions status post thoracentesis, CHF, diastolic. Continue current treatments, diuresis. Follow up in next 24 to 48 hours. Please see further orders. MMODL / IJN: [id number] /
[2022-10-12] MEDS: CALCIUM CARB-VIT D 500 MG-5 MCG TAB PO SCH ×2 (05:48→16:31)
[2022-10-12] MEDS: LEVOTHYROXINE 75 MCG TAB PO SCH (05:48)
--- NOTE | 2022-10-12 06:58 | P.CRDCN ---
History of Present Illness Consult date: 10/12/22 Chief complaint: SOB and edema History of present illness: The patient is a pleasant 76-year-old female patient with a past medical history significant for diabetes and hypertension and dyslipidemia as well as chronic lung disease the patient is on oxygen continuously as well as history of pleural effusion status post pleurocentesis and also history of pericardial effusion. We consulted to see the patient for congestive heart failure. The patient presented to the hospital with progressive shortness of breath and lower extremities edema started about 2 months ago and has gotten worse over the last few days. She gained about 6-7 pounds. No discomfort in the chest and no dizziness or lightheadedness and no feeling of heart racing or fluttering and no presyncope or syncope. No fever and no chills and no cough or wheezing. When she presented to the hospital she was found to be in severe bilateral lower extremity edema and she was started on Lasix IV. She never diagnosed was congestive heart failure before. She was seen by our service March 2023 where she was diagnosed with small pericardial effusion detected only on the c omputed tomography scan and subsequently an echo showed small pericardial effusion that has been managed medically. The patient has no history of CAD or congestive heart failure or cardiac arrhythmia. She underwent also further workup including CBC and BNP came in to be unremarkable and the chest x-ray showed bilateral pleural effusion. Beside that she underwent an EKG which showed sinus mechanism with low voltage QRS and pseudo-infarct pattern concerning for possible Amyloid. That has to be investigated as an outpatient The examination is remarkable for severe bilateral lower extremity edema appeared to be pitting edema and also edema in the lower abdomen. Beside that she has initial reading sounds bilaterally. Assessment Heart failure exacerbation likely related to heart failure with preserved ejection fraction Known chronic hypoxic respiratory failure on oxygen at home History of recurrent pleural effusion status post thoracentesis History of pericardial effusion on echo from March 2022 Multiple comorbid conditions including diabetes and hypertension and dyslipidemia Plan Continue the current medical regimen Continue monitoring the kidney function and electrolytes Continue IV Lasix for now Obtain an echo to see this any change in the pericardial effusion Follow-up with the patient Past Medical History Past Medical History: Heart Failure, Diabetes Mellitus, Hyperlipidemia, Hypertension, Thyroid Disorder Additional Past Medical History / Comment(s): left leg swells at end of day every day for about a year History of Any Multi-Drug Resistant Organisms: None Reported Past Surgical History: Cholecystectomy Additional Past Surgical History / Comment(s): cholecystectomy, cataract surgery Past Anesthesia/Blood Transfusion Reactions: No Reported Reaction Past Psychological History: No Psychological Hx Reported Smoking Status: Never smoker Past Alcohol Use History: Occasional Past Drug Use History: None Reported - Past Family History Father Family Medical History: Cancer, Prostate Disorder Additional Family Medical History / Comment(s): prostate CA Mother Additional Family Medical History / Comment(s): parkinsons Medications and Allergies Home Medications Medication Instructions Recorded Confirmed Type Simvastatin 40 mg PO HS 07/03/22 10/11/22 History Acetaminophen Tab [Tylenol] 650 mg PO Q6HR PRN tab 07/10/22 10/11/22 Rx Bumetanide [BUMEX] 1 mg PO DAILY 09/10/22 10/11/22 History Ferrous Sulfate [Iron (65 MG 325 mg PO DAILY 09/10/22 10/11/22 History Elemental)] Fluticasone/Umeclidin/Vilanter 1 puff INHALATION RT-DAILY 09/10/22 10/11/22 History [Trelegy Ellipta 200-62.5-25] Loratadine [Claritin] 10 mg PO DAILY 09/10/22 10/11/22 History Montelukast [Singulair] 10 mg PO DAILY 09/10/22 10/11/22 History Omeprazole 40 mg PO DAILY 09/10/22 10/11/22 History Ondansetron [Zofran] 4 mg PO Q6H PRN 09/10/22 10/11/22 History Ipratropium-Albuterol Nebulize 3 ml INHALATION RT-QID each 09/18/22 10/11/22 Rx [Duoneb 0.5 mg-3 mg/3 ml Soln] Calcium Carb-Vit D 500Mg-5Mcg 1 tab PO BID-W/MEALS 10/11/22 10/11/22 History [Oscal 500+D 5 Mcg (200 Iu)] Furosemide [Lasix] 40 mg PO BID 10/11/22 10/11/22 History Insulin Glargine-Yfgn [Semglee 15 unit SQ HS 10/11/22 10/11/22 History (Yfgn) Pen] Insulin Lispro 4 units SQ ACHS PRN 10/11/22 10/11/22 History Insulin Lispro See Protocol SQ ACHS PRN 10/11/22 10/11/22 History Levothyroxine Sodium [Synthroid] 150 mcg PO DAILY 10/11/22 10/11/22 History Allergies Allergy/AdvReac Type Severity Reaction Status Date / Time No Known Allergies Allergy Verified 10/11/22 16:04 Physical Exam Vitals: Vital Signs Temp Pulse Pulse Resp BP BP Pulse Ox 10/12/22 04:00 97.4 F L 72 18 121/71 100 10/11/22 23:14 97.5 F L 77 18 120/73 96 10/11/22 23:11 97.5 F L 79 16 120/73 96 10/11/22 22:45 98.0 F 10/11/22 22:10 72 16 113/55 97 10/11/22 21:16 81 17 120/65 96 10/11/22 20:10 98.2 F 81 16 122/58 99 10/11/22 19:04 80 17 129/61 97 10/11/22 17:59 97.8 F 87 17 118/48 98 10/11/22 16:55 84 16 119/51 95 10/11/22 15:47 20 10/11/22 15:46 97.6 F 79 19 127/52 94 L 10/11/22 13:00 98.2 F 90 22 120/59 87 L Intake and Output 10/11/22 10/11/22 10/12/22 14:59 22:59 06:59 Intake Total 150 Output Total 350 Balance 150 -350 Intake: Oral 150 Output: Urine 350 Other: Weight 54.431 kg 55 kg Results 10/11/22 13:17 10/11/22 13:17 Cardiac Enzymes 10/11/22 10/11/22 10/11/22 Range/Units 13:17 13:17 16:57 AST 23 (14-36) U/L Troponin I <0.012 <0.012 (0.000-0.034) ng/mL 10/11/22 Range/Units 20:07 AST (14-36) U/L Troponin I <0.012 (0.000-0.034) ng/mL CBC 10/11/22 Range/Units 13:17 WBC 14.0 H (3.8-10.6) k/uL RBC 4.50 (3.80-5.40) m/uL Hgb 12.7 (11.4-16.0) gm/dL Hct 38.6 (34.0-46.0) % Plt Count 104 L (150-450) k/uL Comprehensive Metabolic Panel 10/11/22 Range/Units 13:17 Sodium 136 L (137-145) mmol/L Potassium 4.1 (3.5-5.1) mmol/L Chloride 93 L (98-107) mmol/L Carbon Dioxide 35 H (22-30) mmol/L BUN 22 H (7-17) mg/dL Creatinine 0.50 L (0.52-1.04) mg/dL Glucose 263 H (74-99) mg/dL Calcium 8.1 L (8.4-10.2) mg/dL AST 23 (14-36) U/L ALT 14 (4-34) U/L Alkaline Phosphatase 114 (38-126) U/L Total Protein 6.4 (6.3-8.2) g/dL Albumin 3.6 (3.5-5.0) g/dL Current Medications Generic Name Dose Route Start Last Admin Trade Name Freq PRN Reason Stop Dose Admin Acetaminophen 650 mg 10/11/22 23:54 Acetaminophen Tab 325 Mg Tab PO Q6HR PRN Mild Pain or Fever > 100.5 Albuterol/Ipratropium 3 ml 10/12/22 08:00 Ipratropium-Albuterol 3 Ml Neb INHALATION RT-QID [facility] Aspirin 325 mg 10/12/22 09:00 Aspirin 325 Mg Tab PO DAILY [facility] Atorvastatin Calcium 20 mg 10/12/22 21:00 Atorvastatin 20 Mg Tab PO HS [facility] Budesonide 0.5 mg 10/12/22 08:00 Budesonide 0.5 Mg/2 Ml Nebu INHALATION RT-BID [facility] Bumetanide 1 mg 10/12/22 00:00 10/12/22 01:58 Bumetanide 0.25 Mg/Ml 4 Ml Vial IVP 1 mg BID [facility] Administration Calcium Carbonate 1 each 10/12/22 07:30 10/12/22 05:48 Calcium Carb-Vit D 500 Mg-5 Mcg Tab PO 1 each BID-W/MEALS [facility] Administration Ferrous Sulfate 325 mg 10/12/22 09:00 Ferrous Sulfate 325 Mg Tab PO DAILY [facility] Furosemide 40 mg 10/11/22 16:30 10/11/22 16:55 Furosemide 10 Mg/Ml 4 Ml Vial IV Not Given Q12H [facility] Insulin Detemir 15 unit 10/12/22 21:00 Insulin Detemir (Levemir) 100 Unit/Ml Syr SQ HS [facility] Levothyroxine Sodium 150 mcg 10/12/22 07:00 10/12/22 05:48 Levothyroxine 75 Mcg Tab PO 150 mcg DAILY@0700 [facility] Administration Loratadine 10 mg 10/12/22 09:00 Loratadine 10 Mg Tab PO DAILY [facility] Montelukast Sodium 10 mg 10/12/22 09:00 Montelukast 10 Mg Tab PO DAILY [facility] Nitroglycerin 0.5 inch 10/12/22 18:00 Nitroglycerin Oint 1 Inch/Gm Packet TOPICAL QID [facility] Ondansetron HCl 4 mg 10/11/22 23:55 Ondansetron 4 Mg Tab PO Q6H PRN Nausea Pantoprazole Sodium 40 mg 10/12/22 09:00 Pantoprazole 40 Mg Tablet PO DAILY [facility] Intake and Output 10/11/22 10/11/22 10/12/22 14:59 22:59 06:59 Intake Total 150 Output Total 350 Balance 150 -350 Intake: Oral 150 Output: Urine 350 Other: Weight 54.431 kg 55 kg Patient Weight 10/12/22 06:59 Weight 55 kg 10/11/22 13:17 10/11/22 13:17
[2022-10-12] MEDS: IPRATROPIUM-ALBUTEROL 3 ML NEB INHALATION SCH ×5 (08:44→22:08)
[2022-10-12] MEDS: BUDESONIDE 0.5 MG/2 ML NEBU INHALATION SCH ×2 (08:44→22:08)
[2022-10-12] MEDS: MONTELUKAST 10 MG TAB PO SCH (09:24)
[2022-10-12] MEDS: ASPIRIN 325 MG TAB PO SCH (09:24)
[2022-10-12] MEDS: LORATADINE 10 MG TAB PO SCH (09:24)
[2022-10-12] MEDS: FERROUS SULFATE 325 MG TAB PO SCH (09:25)
[2022-10-12] MEDS: PANTOPRAZOLE 40 MG TABLET PO SCH (09:25)
--- NOTE | 2022-10-12 11:02 | CA ---
Transthoracic Echo Report Name: Ping Villalpando Age: 76 Gender: F : 1945 Exam Date: 10/12/2022 07:37 Exam Location: [facility] Ht (in): 62 Wt (lb): 121 Ordering Physician: Gonzalez Esteves MD ([id number]) Attending/Referring Phys: School Health Assistant Nirav Levine Procedure CPT: Indications: chf Cardiac Hx: Technical Quality: Fair Contrast 1: Total Dose (mL): Contrast 2: Total Dose (mL): MEASUREMENTS (Male / Female) Normal Values 2D ECHO LV Diastolic Diameter PLAX 3.8 cm 4.2 - 5.9 / 3.9 - 5.3 cm LV Systolic Diameter PLAX 2.0 cm IVS Diastolic Thickness 1.0 cm 0.6 - 1.0 / 0.6 - 0.9 cm LVPW Diastolic Thickness 1.1 cm 0.6 - 1.0 / 0.6 - 0.9 cm LV Relative Wall Thickness 0.6 RV Internal Dim ED PLAX 2.5 cm LVOT Diameter 2.0 cm Aortic Root Diameter 2.6 cm LA Systolic Diameter LX 2.7 cm 3.0 - 4.0 / 2.7 - 3.8 cm LV Diastolic Volume MOD BP 37.9 cm??? 67 - 155 / 56 - 104 cm??? LV Systolic Volume MOD BP 11.2 cm??? 22 - 58 / 19 - 49 cm??? LV Ejection Fraction MOD BP 70.5 % >= 55 % LV Diastolic Volume MOD 4C 36.7 cm??? LV Systolic Volume MOD 4C 13.1 cm??? LV Ejection Fraction MOD 4C 64.4 % LV Diastolic Length 4C 5.7 cm LV Systolic Length 4C 5.1 cm LV Diastolic Volume MOD 2C 37.6 cm??? LV Systolic Volume MOD 2C 8.7 cm??? LV Ejection Fraction MOD 2C 76.8 % LV Diastolic Length 2C 6.0 cm LV Systolic Length 2C 4.6 cm LA Volume 29.5 cm??? 18 - 58 / 22 - 52 cm??? DOPPLER AV Peak Velocity 132.5 cm/s AV Peak Gradient 7.0 mmHg LVOT Peak Velocity 128.8 cm/s LVOT Peak Gradient 6.6 mmHg AV Area Cont Eq pk 2.9 cm??? MV Peak Velocity 126.1 cm/s MV Peak Gradient 6.4 mmHg MV Mean Velocity 67.7 cm/s MV Mean Gradient 2.2 mmHg MV Velocity Time Integral 34.0 cm Mitral E Point Velocity 106.9 cm/s Mitral A Point Velocity 103.6 cm/s Mitral E to A Ratio 1.0 MV Deceleration Time 202.9 ms TR Peak Velocity 285.8 cm/s TR Peak Gradient 32.7 mmHg Right Ventricular Systolic Press 38.1 mmHg PV Peak Velocity 100.8 cm/s PV Peak Gradient 4.1 mmHg FINDINGS Left Ventricle Mild to Moderate concentric LVH.left ventricular ejection fraction is estimated at 60-65 %. Right Ventricle Normal right ventricular size. RVSP= 43mmhg Right Atrium Normal right atrial size. Left Atrium Normal left atrial size. Mitral Valve Structurally normal mitral valve. Mild MR. Aortic Valve Trileaflet aortic valve. Mild sclerosis/calcification.no aortic stenosis. No aortic regurgitation. Tricuspid Valve Structurally normal tricuspid valve. Mild TR. Pulmonic Valve Structurally normal pulmonic valve. No pulmonic regurgitation. Pericardium Large pleural effusion. There is a question of a small posterior pericardial effusion in three chamber views. Aorta Normal size aortic root and proximal ascending aorta. CONCLUSIONS LVH with preserved systolic function Elevated RVSP, mild Large pleural effusion with echogenic material Thickened pericardium, minimal to no effusion Previewed by: Dr. Carlos Palumbo MD (Electronically Signed) Final Date: 12 October 2022 11:00
--- NOTE | 2022-10-12 11:21 | PCN ---
PROCEDURE NOTE PRE-PROCEDURE DIAGNOSIS: Left pleural effusion. POST-PROCEDURE DIAGNOSIS: Left pleural effusion. PROCEDURE: Left-sided thoracentesis. INDICATIONS: Pleural effusion. CO-SURGEON: Dr. Erickson. DESCRIPTION OF PROCEDURE: A time-out was completed verifying correct patient, procedure, site, positioning , and implant (s) or special equipment if applicable. Ultrasound guidance was/was not used and appropriate fluid pocket was identified and marked. Patient was positioned, prepped and draped in usual sterile fashion. Lidocaine was used to anesthetize the area. A Thoracentesis catheter was introduced into the pleural space and fluid was removed. Blood loss was none. A chest x-ray was ordered to evaluate for pneumothorax. Total Fluid Removed: 1.6 L. Color of Fluid: Dark brown/red in color. Fluid was not sent for appropriate laboratory tests. Patient tolerated the procedure well and there were no complications. The posterior chest was marked by ultrasound. There was informed consent. After the patient was properly positioned, the skin and deeper tissues were anesthetized with lidocaine. A small incision was made. The catheter was introduced into the pleural space. There was about 1.6 L of red/brown straw-colored fluid removed from the left pleural space. The patient tolerated the procedure well. A chest x-ray will be ordered. The fluid was previously analyzed and will not be analyzed again. There was no immediate complication. The patient tolerated the procedure very well. MMODL / IJN: [id number] / MTDD
--- NOTE | 2022-10-12 11:43 | XR ---
EXAMINATION TYPE: XR chest 1V portable DATE OF EXAM: 10/12/2022 11:21 AM COMPARISON: Chest radiographs from 10/11/2022 TECHNIQUE: XR chest 1V portable Frontal view of the chest. CLINICAL INDICATION:Female, 76 years old with history of S/P left thoracentesis; FINDINGS: Lungs/Pleura: Decrease in left pleural effusion. There remains small amount of fluid. No evidence of focal consolidation or pneumothorax. Blunting of the costophrenic angles is present. Pulmonary vascularity: Unremarkable. Heart/mediastinum: Cardiomediastinal silhouette is enlarged and stable. Musculoskeletal: No acute osseous pathology. IMPRESSION: Decrease in left pleural effusion. No evidence of pneumothorax. Persistent small right pleural effusi on.
[2022-10-12] MEDS: FUROSEMIDE 10 MG/ML 4 ML VIAL IV SCH ×3 (13:32→21:10)
--- NOTE | 2022-10-12 14:53 | P.CNPUL ---
History of Present Illness Consult date: 10/12/22 Requesting physician: Steve Barron Reason for consult: dyspnea, hypoxemia, pleural effusion, abnormal CXR/CT Chief complaint: Shortness of breath. History of present illness: Pulmonary consult dated 10/12/2022. 76-year-old female who presented to the emergency department, for lower extremity edema, and shortness of breath. The patient has had recent thoracentesis performed by my partner, just 3 days ago, on the right side. She was marked on both sides, but she did not have a left-sided thoracentesis as yet. The patient is seen today in room 377. The Band-Aid from the recent right-sided thoracentesis is still noted. The left posterior chest still has a marking, with OpSite over it. The patient is complaining of shortness of breath, and would like a left-sided thoracentesis if possible. We did order an ultrasound of the chest, but at the time of the evaluation of the patient, it had not yet been done. The patient denies any chest pain or chest discomfort. She denies any fever or chills. She's not coughing up producing any phlegm. She has a history of diabetes, hyperlipidemia, hypertension, and thyroid disease. White count is 14, hemoglobin 12.7, hematocrit 38.6, and platelet count 104,000. Sodium 136, potassium 4.1, chlorides 93, CO2 35, BUN 22, and creatinine 0.50. Troponins were negative 3. N-terminal proBNP was 593. Pro- calcitonin level was 0.26. Chest x-ray on October 11 shows bilateral effusions, moderate in size. Postprocedure chest x-ray shows a decrease in the left-sided pleural effusion. There was no evidence of pneumothorax. Recent analysis of the fluid removed by my partner on October 10, shows evidence of an exudate. The protein value was 3.54 g. The pathology report from that thoracentesis is currently pending. 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 Review of Systems REVIEW OF SYSTEMS: CONSTITUTIONAL: [Negative.] NEUROLOGIC: [ Negative.] HEENT: [ Negative.] CARDIAC: Leg edema. PULMONARY: Shortness of breath. GI: [Negative.] : [Negative.] RHEUMATOLOGIC: [ Negative.] IMMUNOLOGIC: [ Negative.] ENDOCRINE: [Negative. ] DERMATOLOGIC: [Negative.] Past Medical History Past Medical History: Heart Failure, Diabetes Mellitus, Hyperlipidemia, Hypertension, Thyroid Disorder Additional Past Medical History / Comment(s): left leg swells at end of day every day for about a year History of Any Multi-Drug Resistant Organisms: None Reported Past Surgical History: Cholecystectomy Additional Past Surgical History / Comment(s): cholecystectomy, cataract surgery Past Anesthesia/Blood Transfusion Reactions: No Reported Reaction Past Psychological History: No Psychological Hx Reported Smoking Status: Never smoker Past Alcohol Use History: Occasional Past Drug Use History: None Reported - Past Family History Father Family Medical History: Cancer, Prostate Disorder Additional Family Medical History / Comment(s): prostate CA Mother Additional Family Medical History / Comment(s): parkinsons Medications and Allergies Home Medications Medication Instructions Recorded Confirmed Type Simvastatin 40 mg PO HS 07/03/22 10/11/22 History Acetaminophen Tab [Tylenol] 650 mg PO Q6HR PRN tab 07/10/22 10/11/22 Rx Bumetanide [BUMEX] 1 mg PO DAILY 09/10/22 10/11/22 History Ferrous Sulfate [Iron (65 MG 325 mg PO DAILY 09/10/22 10/11/22 History Elemental)] Fluticasone/Umeclidin/Vilanter 1 puff INHALATION RT-DAILY 09/10/22 10/11/22 History [Trelegy Ellipta 200-62.5-25] Loratadine [Claritin] 10 mg PO DAILY 09/10/22 10/11/22 History Montelukast [Singulair] 10 mg PO DAILY 09/10/22 10/11/22 History Omeprazole 40 mg PO DAILY 09/10/22 10/11/22 History Ondansetron [Zofran] 4 mg PO Q6H PRN 09/10/22 10/11/22 History Ipratropium-Albuterol Nebulize 3 ml INHALATION RT-QID each 09/18/22 10/11/22 Rx [Duoneb 0.5 mg-3 mg/3 ml Soln] Calcium Carb-Vit D 500Mg-5Mcg 1 tab PO BID-W/MEALS 10/11/22 10/11/22 History [Oscal 500+D 5 Mcg (200 Iu)] Furosemide [Lasix] 40 mg PO BID 10/11/22 10/11/22 History Insulin Glargine-Yfgn [Semglee 15 unit SQ HS 10/11/22 10/11/22 History (Yfgn) Pen] Insulin Lispro 4 units SQ ACHS PRN 10/11/22 10/11/22 History Insulin Lispro See Protocol SQ ACHS PRN 10/11/22 10/11/22 History Levothyroxine Sodium [Synthroid] 150 mcg PO DAILY 10/11/22 10/11/22 History Allergies Allergy/AdvReac Type Severity Reaction Status Date / Time No Known Allergies Allergy Verified 10/11/22 16:04 Physical Exam Osteopathic Statement: *. No significant issues noted on an osteopathic st ructural exam other than those noted in the History and Physical/Consult. Vitals: Vital Signs Temp Pulse Pulse Resp BP BP Pulse Ox 10/12/22 12:14 76 10/12/22 12:00 97.6 F 76 16 103/66 100 10/12/22 08:00 97.7 F 87 16 112/64 98 10/12/22 04:00 97.4 F L 72 18 121/71 100 10/11/22 23:14 97.5 F L 77 18 120/73 96 10/11/22 23:11 97.5 F L 79 16 120/73 96 10/11/22 22:45 98.0 F 10/11/22 22:10 72 16 113/55 97 10/11/22 21:16 81 17 120/65 96 10/11/22 20:10 98.2 F 81 16 122/58 99 10/11/22 19:04 80 17 129/61 97 10/11/22 17:59 97.8 F 87 17 118/48 98 10/11/22 16:55 84 16 119/51 95 10/11/22 15:47 20 10/11/22 15:46 97.6 F 79 19 127/52 94 L Intake and Output 10/11/22 10/12/22 10/12/22 22:59 06:59 14:59 Intake Total 150 240 Output Total 350 Balance 150 -350 240 Intake: Oral 150 240 Output: Urine 350 Other: # Voids 1 Weight 55 kg No acute distress, oriented 3. Currently on 3 L of oxygen. Saturations are 100%. HEENT examination is grossly unremarkable. Neck supple. Full range of motion. No adenopathy thyromegaly or neck vein distention. Cardiovascular examination reveals regular rhythm rate. S1-S2 normal. No S3 or S4. No discernible murmur noted. Heart rate 76 bpm. Lungs reveal diminished breath sounds at both bases. Few scattered rhonchi. No wheezes or crackles. Saturations are excellent on 3 L. Abdomen soft bowel sounds are heard. No masses or tenderness. Extremities are intact. No cyanosis or clubbing. 1+ edema is noted. Skin is without rash or lesion. Neurologic examination is brief but nonfocal. Results - Laboratory Findings CBC and BMP: 10/11/22 13:17 10/11/22 13:17 Abnormal lab findings: Abnormal Labs 10/11/22 10/11/22 10/12/22 13:17 13:17 00:35 WBC 14.0 H Plt Count 104 L Neutrophils # (Manual) 10.92 H Monocytes # (Manual) 1.26 H Sodium 136 L Chloride 93 L Carbon Dioxide 35 H BUN 22 H Creatinine 0.50 L Glucose 263 H Calcium 8.1 L Procalcitonin 0.26 H - Diagnostic Findings Chest x-ray: image reviewed Assessment and Plan Assessment: Recurrent bilateral pleural effusions, of unclear etiology. Recent right-sided thoracentesis, 10/10/2022, which was an exudate. Status post left-sided thoracentesis, 1.6 L removed, 10/12/2022, not analyzed. 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 History of hyperlipidemia. History of diabetes mellitus. History of hypothyroidism. History of hypertension. Previous history of tobacco use. Plan: Plan dated 10/12/2022. 1.6 L of dark brown/red fluid was removed from the left pleural space today. The patient tolerated the procedure well. We have ordered a right-sided ultrasound, with possible markings, to determine whether or not it would be useful to repeat to thoracentesis on the right side. The patient's chest x-ray after the left-sided thoracentesis, did not reveal any pneumothorax. The patient tolerated the procedure extremely well. We will continue to follow make recommendations along the way. The fluid removed from the right lung, on October 10, was clearly an exudate. Pathology is pending. Time with Patient: Greater than 30
[2022-10-12 15:57] VITALS: BMI 22.1
[2022-10-12] MEDS: NITROGLYCERIN OINT 1 INCH/GM PACKET TOPICAL SCH ×2 (16:32→21:09)
[2022-10-12] MEDS ORDERED: DEXTROSE 50% SYRINGE 50 ML IVP PRN ×2 (20:16)
[2022-10-12 20:25] LABS: Glucose,Whole Blood 456 mg/dL (70-110)
[2022-10-12] MEDS: INSULIN DETEMIR (LEVEMIR) 100 UNIT/ML SYR SQ SCH (21:09)
[2022-10-12] MEDS: INSULIN ASPART (NovoLOG) 100 UNIT/ML VIAL SQ SCH (21:09)
[2022-10-12] MEDS: ATORVASTATIN 20 MG TAB PO SCH (21:10)
[2022-10-12 22:05] LABS: T4, Free (Free Thyroxine) 1.39 ng/dL (0.78-2.19)
[2022-10-12] MEDS: DOCUSATE 100 MG CAP PO SCH (22:24)
[2022-10-13 04:24] LABS: HCT 36.2 % (34.0-46.0); HGB 11.4 gm/dL (11.4-16.0); Hypochromasia Slight; MCH 27.1 pg (25.0-35.0); MCHC 31.5 g/dL (31.0-37.0); Platelet Count 104 k/uL (150-450); RBC 4.21 m/uL (3.80-5.40); RDW 15.4 % (11.5-15.5); WBC 14.8 k/uL (3.8-10.6)
[2022-10-13 04:35] LABS: ALT 12 U/L (4-34); AST 14 U/L (14-36); African American GFR (CKD) >90 (>60 ml/min/1.73 sqM); Albumin 2.8 g/dL (3.5-5.0); Alkaline Phosphatase 94 U/L (38-126); Anion Gap 5 mmol/L; Blood Urea Nitrogen 23 mg/dL (7-17); Calcium 7.7 mg/dL (8.4-10.2); Carbon Dioxide 39 mmol/L (22-30); Chloride 90 mmol/L (98-107); Glucose 306 mg/dL (74-99); Non-African American GFR(CKD) >90 (>60 ml/min/1.73 sqM); Potassium 3.5 mmol/L (3.5-5.1); Sodium 134 mmol/L (137-145); Total Bilirubin 0.3 mg/dL (0.2-1.3); Total Protein 5.3 g/dL (6.3-8.2)
[2022-10-13 04:39] LABS: Band Neutrophils % 2 %; Lymphocytes # (M) 1.48 k/uL (1.0-4.8); Monocytes # (M) 5.03 k/uL (0-1.0); Neutrophils % (M) 54 %; Nucleated Red Blood Cells 0 /100 WBC (0-0); Total Cells Counted 100
[2022-10-13 04:40] LABS: Large Platelets Present
[2022-10-13 06:03] LABS: Glucose,Whole Blood 213 mg/dL (70-110)
[2022-10-13] MEDS: LEVOTHYROXINE 75 MCG TAB PO SCH (06:20)
[2022-10-13] MEDS: CALCIUM CARB-VIT D 500 MG-5 MCG TAB PO SCH ×2 (06:20→16:24)
[2022-10-13] MEDS: INSULIN ASPART (NovoLOG) 100 UNIT/ML VIAL SQ SCH ×4 (06:21→20:55)
--- NOTE | 2022-10-13 07:19 | P.PN ---
Subjective Progress Note Date: 10/13/22 Principal diagnosis: CHF The patient is a pleasant 76-year-old female patient with a past medical history significant for diabetes and hypertension and dyslipidemia as well as chronic lung disease the patient is on oxygen continuously as well as history of pleural effusion status post pleurocentesis and also history of pericardial effusion. We consulted to see the patient for congestive heart failure. The patient presented to the hospital with progressive shortness of breath and lower extremities edema started about 2 months ago and has gotten worse over the last few days. She gained about 6-7 pounds. No discomfort in the chest and no dizziness or lightheadedness and no feeling of heart racing or fluttering and no presyncope or syncope. No fever and no chills and no cough or wheezing. When she presented to the hospital she was found to be in severe bilateral lower extremity edema and she was started on Lasix IV. She never diagnosed was congestive heart failure before. She was seen by our service March 2023 where she was diagnosed with small pericardial effusion detected only on the computed tomography scan and subsequently an echo showed small pericardial effusion that has been managed medically. The patient has no history of CAD or congestive heart failure or cardiac arrhythmia. She underwent also further workup including CBC and BNP came in to be unremarkable and the chest x-ray showed bilateral pleural effusion. Beside that she underwent an EKG which showed sinus mechanism with low voltage QRS and pseudo-infarct pattern concerning for possible Amyloid. That has to be investigated as an outpatient 10/13/2022 The patient was seen and evaluated this morning. She is feeling better. The shortness of breath has improved as well as the lower extremity edema. She underwent an echo which revealed normal LV systolic function was pulmonary hypertension and dilated right ventricle. Currently the patient is on Lasix and we'll continue that. Continue monitor the kidney function and electrolytes. The patient does have an appointment to go to [facility] for further investigation. The examination is remarkable for severe bilateral lower extremity edema appeared to be pitting edema and also edema in the lower abdomen. Beside that she has initial reading sounds bilaterally. Assessment Heart failure exacerbation likely related to heart failure with preserved ejection fraction Known chronic hypoxic respiratory failure on oxygen at home History of recurrent pleural effusion status post thoracentesis History of pericardial effusion on echo from March 2022 Multiple comorbid conditions including diabetes and hypertension and dyslipidemia Plan Continue the current medical regimen Continue monitoring the kidney function and electrolytes Continue IV Lasix for now Follow-up with the patient Objective - Vital Signs Vital signs: Vital Signs Temp 97.8 F 10/13/22 04:00 Pulse 72 10/13/22 04:00 Resp 19 10/13/22 04:00 BP 130/78 10/13/22 04:00 Pulse Ox 100 10/13/22 04:00 FiO2 Intake & Output 10/12/22 10/13/22 10/13/22 18:59 06:59 18:59 Intake Total 240 Output Total 700 Balance 240 -700 Weight 55 kg 54.8 kg Intake: Oral 240 Output: Urine 700 Other: Voiding Method Toilet # Voids 1 1 # Bowel Movements 1 - Labs CBC & Chem 7: 10/13/22 03:40 10/13/22 03:40 Labs: Abnormal Lab Results - Last 24 Hours (Table) 10/12/22 10/12/22 10/12/22 Range/Units 00:35 19:13 20:18 WBC (3.8-10.6) k/uL Plt Count (150-450) k/uL Neutrophils # (Manual) (1.3-7.7) k/uL Monocytes # (Manual) (0-1.0) k/uL Sodium (137-145) mmol/L Chloride (98-107) mmol/L Carbon Dioxide (22-30) mmol/L BUN (7-17) mg/dL Glucose (74-99) mg/dL POC Glucose (mg/dL) 456 H (70-110) mg/dL Calcium (8.4-10.2) mg/dL Total Protein (6.3-8.2) g/dL Albumin (3.5-5.0) g/dL Procalcitonin 0.26 H (0.02-0.09) ng/mL TSH 11.400 H (0.465-4.680) mIU/L 10/13/22 10/13/22 10/13/22 Range/Units 03:40 03:40 06:01 WBC 14.8 H (3.8-10.6) k/uL Plt Count 104 L (150-450) k/uL Neutrophils # (Manual) 8.20 H (1.3-7.7) k/uL Monocytes # (Manual) 5.03 H (0-1.0) k/uL Sodium 134 L (137-145) mmol/L Chloride 90 L (98-107) mmol/L Carbon Dioxide 39 H (22-30) mmol/L BUN 23 H (7-17) mg/dL Glucose 306 H (74-99) mg/dL POC Glucose (mg/dL) 213 H (70-110) mg/dL Calcium 7.7 L (8.4-10.2) mg/dL Total Protein 5.3 L (6.3-8.2) g/dL Albumin 2.8 L (3.5-5.0) g/dL Procalcitonin (0.02-0.09) ng/mL TSH (0.465-4.680) mIU/L
[2022-10-13] MEDS: IPRATROPIUM-ALBUTEROL 3 ML NEB INHALATION SCH ×4 (09:00→21:04)
[2022-10-13] MEDS: BUDESONIDE 0.5 MG/2 ML NEBU INHALATION SCH ×2 (09:00→21:04)
[2022-10-13] MEDS: MONTELUKAST 10 MG TAB PO SCH (09:11)
[2022-10-13] MEDS: PANTOPRAZOLE 40 MG TABLET PO SCH (09:11)
[2022-10-13] MEDS: ASPIRIN 325 MG TAB PO SCH (09:11)
[2022-10-13] MEDS: DOCUSATE 100 MG CAP PO SCH ×2 (09:11→20:34)
[2022-10-13] MEDS: NITROGLYCERIN OINT 1 INCH/GM PACKET TOPICAL SCH ×3 (09:11→23:19)
[2022-10-13] MEDS: LORATADINE 10 MG TAB PO SCH (09:11)
[2022-10-13] MEDS: FERROUS SULFATE 325 MG TAB PO SCH (09:11)
--- NOTE | 2022-10-13 10:22 | US ---
EXAMINATION TYPE: US chest DATE OF EXAM: 10/13/2022 COMPARISON: Chest radiograph 10/12/2022 CLINICAL INDICATION: Female, 76 years old with history of Right pleural effusion; h/o recent thoracen tesis, small right pleural fluid seen on xray TECHNIQUE: Targeted ultrasound of the posterior lower Right EXAM MEASUREMENTS: Right Pleural Effusion pocket size: 11.8 cm - flapping tissue seen within pocket Right skin surface to fluid distance: 2.9 cm Right side marked for possible thoracentesis outside the dept. . Pulmonologists are able to review the images in the patient?s EMR. IMPRESSIONS: Small to moderate sized right-sided pleural effusion with atelectatic lung identified.
[2022-10-13 11:34] LABS: Glucose,Whole Blood 232 mg/dL (70-110)
[2022-10-13] MEDS: FUROSEMIDE 10 MG/ML 4 ML VIAL IV SCH ×2 (11:44→20:34)
--- NOTE | 2022-10-13 12:11 | P.PN ---
Subjective Progress Note Date: 10/13/22 Principal diagnosis: Pleural effusion. Pulmonary consult dated 10/12/2022. 76-year-old female who presented to the emergency department, for lower extremity edema, and shortness of breath. The patient has had recent thoracentesis performed by my partner, just 3 days ago, on the right side. She was marked on both sides, but she did not have a left-sided thoracentesis as yet. The patient is seen today in room 377. The Band-Aid from the recent right-sided thoracentesis is still noted. The left posterior chest still has a marking, with OpSite over it. The patient is complaining of shortness of breath, and would like a left-sided thoracentesis if possible. We did order an ultrasound of the chest, but at the time of the evaluation of the patient, it had not yet been done. The patient denies any chest pain or chest discomfort. She denies any fever or chills. She's not coughing up producing any phlegm. She has a history of diabetes, hyperlipidemia, hypertension, and thyroid disease. White count is 14, hemoglobin 12.7, hematocrit 38.6, and platelet count 104,000. Sodium 136, potassium 4.1, chlorides 93, CO2 35, BUN 22, and creatinine 0.50. Troponins were negative 3. N-terminal proBNP was 593. Pro- calcitonin level was 0.26. Chest x-ray on October 11 shows bilateral effusions, moderate in size. Postprocedure chest x-ray shows a decrease in the left-sided pleural effusion. There was no evidence of pneumothorax. Recent analysis of the fluid removed by my partner on October 10, shows evidence of an exudate. The protein value was 3.54 g. The pathology report from that thoracentesis is currently pending. 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 Progress note dated 10/13/2022. 76-year-old female seen in room 377. Yesterday, we did a left-sided thoracentesis, and 1.6 L of fluid was removed from the left pleural space. It was not sent for analysis, as the patient has had previous thoracentesis performed, by my partners, which have been evaluated. The most recent thoracentesis, before [facility], was done on October 10. Currently, the patient is on 3 L of oxygen. She's not receiving any IV fluids. We had the right side marked again by ultrasound, but the patient did not want to have thoracentesis performed today. She prefers to wait. White count 14.8, hemoglobin 11.4, hematocrit 36.2, and platelet count 104,000. Sodium 134, potassium 3.5, chlorides 90, CO2 39, BUN 23, creatinine 0.54. TSH was 11.4. Ultrasound of the right pleural space shows a pocket that is almost 12 cm in size. Flapping tissue is seen within the pocket. Objective - Vital Signs Vital signs: Vital Signs Temp 97.8 F 10/13/22 04:00 Pulse 81 10/13/22 11:40 Resp 18 10/13/22 11:40 BP 120/61 10/13/22 11:40 Pulse Ox 98 10/13/22 09:01 FiO2 Intake & Output 10/12/22 10/13/22 10/13/22 18:59 06:59 18:59 Intake Total 240 130 Output Total 700 Balance 240 -700 130 Weight 55 kg 54.8 kg Intake: IV 10 Invasive Line 1 10 Oral 240 120 Output: Urine 700 Other: Voiding Method Toilet Toilet # Voids 1 1 # Bowel Movements 1 - Exam No acute distress, oriented 3. Currently on 3 L. No obvious respiratory distress. HEENT examination is grossly unremarkable. Mucous membranes are moist. No oral lesions. Neck supple. Full range of motion. No adenopathy thyromegaly or neck vein dist ention. Cardiovascular examination reveals regular rhythm rate. S1-S2 normal. No S3 or S4. No discernible murmur noted. Heart rate 81 bpm. Lungs reveal diminished breath sounds on the right. No wheezes or rhonchi. No crackles. 3 L saturation is 98%. Abdomen soft bowel sounds are heard. No masses or tenderness. Extremities are intact. No cyanosis clubbing or edema. Skin is without rash or lesion. Neurologic examination is brief but nonfocal. - Labs CBC & Chem 7: 10/13/22 03:40 10/13/22 03:40 Labs: Abnormal Lab Results - Last 24 Hours (Table) 10/12/22 10/12/22 10/13/22 Range/Units 19:13 20:18 03:40 WBC 14.8 H (3.8-10.6) k/uL Plt Count 104 L (150-450) k/uL Neutrophils # (Manual) 8.20 H (1.3-7.7) k/uL Monocytes # (Manual) 5.03 H (0-1.0) k/uL Sodium (137-145) mmol/L Chloride (98-107) mmol/L Carbon Dioxide (22-30) mmol/L BUN (7-17) mg/dL Glucose (74-99) mg/dL POC Glucose (mg/dL) 456 H (70-110) mg/dL Calcium (8.4-10.2) mg/dL Total Protein (6.3-8.2) g/dL Albumin (3.5-5.0) g/dL TSH 11.400 H (0.465-4.680) mIU/L 10/13/22 10/13/22 10/13/22 Range/Units 03:40 06:01 11:31 WBC (3.8-10.6) k/uL Plt Count (150-450) k/uL Neutrophils # (Manual) (1.3-7.7) k/uL Monocytes # (Manual) (0-1.0) k/uL Sodium 134 L (137-145) mmol/L Chloride 90 L (98-107) mmol/L Carbon Dioxide 39 H (22-30) mmol/L BUN 23 H (7-17) mg/dL Glucose 306 H (74-99) mg/dL POC Glucose (mg/dL) 213 H 232 H (70-110) mg/dL Calcium 7.7 L (8.4-10.2) mg/dL Total Protein 5.3 L (6.3-8.2) g/dL Albumin 2.8 L (3.5-5.0) g/dL TSH (0.465-4.680) mIU/L Assessment and Plan Assessment: Recurrent bilateral pleural effusions, of unclear etiology. Recent right-sided thoracentesis, 10/10/2022, which was an exudate. Status post left-sided thoracentesis, 1.6 L removed, 10/12/2022, not analyzed. 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 History of hyperlipidemia. History of diabetes mellitus. History of hypothyroidism. History of hypertension. Previous history of tobacco use. Plan: Plan dated 10/12/2022. 1.6 L of dark brown/red fluid was removed from the left pleural space today. The patient tolerated the procedure well. We have ordered a right-sided ultrasound, with possible markings, to determine whether or not it would be useful to repeat to thoracentesis on the right side. The patient's chest x-ray after the left-sided thoracentesis, did not reveal any pneumothorax. The patient tolerated the procedure extremely well. We will continue to follow make recommendations along the way. The fluid removed from the right lung, on October 10, was clearly an exudate. Pathology is pending. Plan dated 10/13/2022. The patient did not want a right-sided thoracentesis today. We are still waiting for the results of the cytology report from the thoracentesis that was done on the right side, on October 10. Labs, x-rays, and medications are reviewed. Prognosis is guarded. We will continue to follow the patient and make recommendations along the way. Time with Patient: Less than 30
--- NOTE | 2022-10-13 12:24 | PN ---
PROGRESS NOTE SUBJECTIVE: The patient had a chest ultrasound on 10/13/2022 that showed [id number] right- sided pleural effusion, pocket size around 28 cm, may have to be draining in. States she keeps having recurrent pleural effusion. We will have to get a chest surgeon involved. She is on Lasix for diuresis. She is going to go to [facility] soon. She has pitting edema in her lower extremities, which is better with IV Lasix with which she came in for her recurrent pleural effusion status post thoracentesis pericardial effusion of echo. Continue IV Lasix for now. Maybe get Cardiac surgery involved, probably CHF with preserved ejection fraction. She has chronic leukemia which she is going to follow up in the [facility] for. Her white count is 5 with a high procalcitonin. She may have some sort of an infection. Her thyroid is much better than it was. She has high procalcitonin levels. Continue with the thyroid medicine, may be increased a little bit more, diuresis, may be get cardiac surgeon while she continues to have recurrent pleural effusions. PROGNOSIS: Guarded. MMODL / IJN: [id number] /
[2022-10-13 16:17] LABS: Glucose,Whole Blood 301 mg/dL (70-110)
--- NOTE | 2022-10-13 19:29 | P.CONS ---
History of Present Illness - Reason for Consult Consult date: 10/13/22 - History of Present Illness Patient is a 76-year female with a past medical history significant for diabetes mellitus hypertension hyperlipidemia history of heart failure patient did have a history of pleural effusion and recently did have a right- sided thoracocentesis done, patient was subsequent discharged home and is presenting back to the hospital for evaluation of increasing shortness of breath and lower extremity edema patient denies having any chest pain did have very minimal cough no sputum production denies any nausea vomiting or choking on the food no abdominal pain or any diarrhea patient on presentation to the hospital was afebrile and no fever has been recorded subsequently patient did have a chest x-ray moderate sized bilateral pleural effusion patient has been evaluated by pulmonary and the patient is status post left sided thoracocentesis done no fluid was sent for analysis patient did have a blood work with evidence of elevated procalcitonin of 0.26 that has prompted this infectious disease consultation patient did have a white count of 14,000 admission with a left shift kidney function has been normal exams are normal chest ultrasound completed this morning small to moderate size right pleural effusion with atelectatic changes patient is currently on Rocephin empirically Past Medical History Past Medical History: Heart Failure, Diabetes Mellitus, Hyperlipidemia, Hypertension, Thyroid Disorder Additional Past Medical History / Comment(s): left leg swells at end of day every day for about a year History of Any Multi-Drug Resistant Organisms: None Reported Past Surgical History: Cholecystectomy Additional Past Surgical History / Comment(s): cholecystectomy, cataract surgery Past Anesthesia/Blood Transfusion Reactions: No Reported Reaction Past Psychological History: No Psychological Hx Reported Smoking Status: Never smoker Past Alcohol Use History: Occasional Past Drug Use History: None Reported - Past Family History Father Family Medical History: Cancer, Prostate Disorder Additional Family Medical History / Comment(s): prostate CA Mother Additional Family Medical History / Comment(s): parkinsons Medications and Allergies Home Medications Medication Instructions Recorded Confirmed Type Simvastatin 40 mg PO HS 07/03/22 10/11/22 History Acetaminophen Tab [Tylenol] 650 mg PO Q6HR PRN tab 07/10/22 10/11/22 Rx Bumetanide [BUMEX] 1 mg PO DAILY 09/10/22 10/11/22 History Ferrous Sulfate [Iron (65 MG 325 mg PO DAILY 09/10/22 10/11/22 History Elemental)] Fluticasone/Umeclidin/Vilanter 1 puff INHALATION RT-DAILY 09/10/22 10/11/22 History [Trelegy Ellipta 200-62.5-25] Loratadine [Claritin] 10 mg PO DAILY 09/10/22 10/11/22 History Montelukast [Singulair] 10 mg PO DAILY 09/10/22 10/11/22 History Omeprazole 40 mg PO DAILY 09/10/22 10/11/22 History Ondansetron [Zofran] 4 mg PO Q6H PRN 09/10/22 10/11/22 History Ipratropium-Albuterol Nebulize 3 ml INHALATION RT-QID each 09/18/22 10/11/22 Rx [Duoneb 0.5 mg-3 mg/3 ml Soln] Calcium Carb-Vit D 500Mg-5Mcg 1 tab PO BID-W/MEALS 10/11/22 10/11/22 History [Oscal 500+D 5 Mcg (200 Iu)] Furosemide [Lasix] 40 mg PO BID 10/11/22 10/11/22 History Insulin Glargine-Yfgn [Semglee 15 unit SQ HS 10/11/22 10/11/22 History (Yfgn) Pen] Insulin Lispro 4 units SQ ACHS PRN 10/11/22 10/11/22 History Insulin Lispro See Protocol SQ ACHS PRN 10/11/22 10/11/22 History Levothyroxine Sodium [Synthroid] 150 mcg PO DAILY 10/11/22 10/11/22 History Allergies Allergy/AdvReac Type Severity Reaction Status Date / Time No Known Allergies Allergy Verified 10/11/22 16:04 Physical Exam Vitals: Vital Signs Temp Pulse Pulse Resp BP Pulse Ox 10/13/22 09:17 88 10/13/22 09:10 85 135/74 10/13/22 09:01 85 98 10/13/22 04:00 97.8 F 72 19 130/78 100 10/13/22 00:00 97.9 F 82 19 112/67 99 10/12/22 22:19 84 10/12/22 22:08 84 10/12/22 20:00 98.0 F 85 19 121/56 99 10/12/22 16:00 98 F 86 16 107/91 100 10/12/22 12:14 76 10/12/22 12:00 97.6 F 76 16 103/66 100 Intake and Output 10/12/22 10/13/22 10/13/22 22:59 06:59 14:59 Intake Total 120 Output Total 700 Balance -700 120 Intake: Oral 120 Output: Urine 700 Other: Voiding Method Toilet Toilet # Voids 1 # Bowel Movements 1 Weight 55 kg 54.8 kg Results CBC & Chem 7: 10/13/22 03:40 10/13/22 03:40 Labs: Abnormal Lab Results - Last 24 Hours (Table) 10/12/22 10/12/22 10/13/22 Range/Units 19:13 20:18 03:40 WBC 14.8 H (3.8-10.6) k/uL Plt Count 104 L (150-450) k/uL Neutrophils # (Manual) 8.20 H (1.3-7.7) k/uL Monocytes # (Manual) 5.03 H (0-1.0) k/uL Sodium (137-145) mmol/L Chloride (98-107) mmol/L Carbon Dioxide (22-30) mmol/L BUN (7-17) mg/dL Glucose (74-99) mg/dL POC Glucose (mg/dL) 456 H (70-110) mg/dL Calcium (8.4-10.2) mg/dL Total Protein (6.3-8.2) g/dL Albumin (3.5-5.0) g/dL TSH 11.400 H (0.465-4.680) mIU/L 10/13/22 10/13/22 Range/Units 03:40 06:01 WBC (3.8-10.6) k/uL Plt Count (150-450) k/uL Neutrophils # (Manual) (1.3-7.7) k/uL Monocytes # (Manual) (0-1.0) k/uL Sodium 134 L (137-145) mmol/L Chloride 90 L (98-107) mmol/L Carbon Dioxide 39 H (22-30) mmol/L BUN 23 H (7-17) mg/dL Glucose 306 H (74-99) mg/dL POC Glucose (mg/dL) 213 H (70-110) mg/dL Calcium 7.7 L (8.4-10.2) mg/dL Total Protein 5.3 L (6.3-8.2) g/dL Albumin 2.8 L (3.5-5.0) g/dL TSH (0.465-4.680) mIU/L Assessment and Plan Plan: 1patient presented to hospital with increasing lower extremity edema also with increasing shortness of breath in this patient with a history of bilateral pleural effusion likely cardiac etiology patient recently did have a right-sided thoracocentesis and this admission she did have a left-sided thoracocentesis however fluid has not been sent for analysis patient not running any fever White count is mildly elevated and procalcitonin 0.26 clinically not behaving as pneumonia 2-we will recheck her inflammatory markers and try to obtain a sputum if possible 3-May continue with empiric Rocephin while awaiting further work-up to be completed We will follow on clinical condition and cultures to further adjust medication if needed Thank you for this consultation we will follow the patient along with you Time with Patient: Greater than 30
[2022-10-13] MEDS: ATORVASTATIN 20 MG TAB PO SCH (20:34)
[2022-10-13 20:47] LABS: Glucose,Whole Blood 324 mg/dL (70-110)
[2022-10-13] MEDS: INSULIN DETEMIR (LEVEMIR) 100 UNIT/ML SYR SQ SCH (20:55)
--- NOTE | 2022-10-14 02:19 | P.PN ---
Subjective Progress Note Date: 10/13/[address] Barron Patient is a 76-year-old female with past medical history of hypertension, hype rlipidemia, diabetes type 2, COPD on home oxygen and history of pleural effusion status post recent right thoracentesis and also history of pericardial effusion admitted to hospital due to worsening shortness of breath and bilateral lower extremity edema for the past 2 months and worsening during the last few days. Patient also been 6 to 7 pounds. Currently being diuresed with IV Lasix. 10/13/2022 Patient is currently lying in the bed. Awake alert oriented x3. Breathing status is better. Patient is s/p left thoracentesis yesterday. Patient is being continued on IV Lasix 40 mg every 12. Lower EXTR swelling improved. Bilateral lower extremity compression stockings in place. 2D echocardiogram showed normal LV function. Pulmonary hypertension and dilated right ventricle. No complaints of chest pain. No nausea vomiting abdominal pain or diarrhea. cough occasionally. No shortness of breath. No fever no chills. Current medications reviewed. Objective - Vital Signs Vital signs: Vital Signs Temp 98.1 F 10/13/22 16:00 Pulse 82 10/13/22 16:31 Resp 16 10/13/22 16:00 BP 104/67 10/13/22 16:00 Pulse Ox 94 L 10/13/22 16:00 FiO2 Intake & Output 10/13/22 10/13/22 10/14/22 06:59 18:59 06:59 Intake Total 380 Output Total 700 700 Balance -700 -320 Weight 54.8 kg Intake: IV 20 Invasive Line 1 20 Oral 360 Output: Urine 700 700 Other: Voiding Method Toilet Toilet # Voids 1 # Bowel Movements 1 - Exam PHYSICAL EXAMINATION: Patient is lying in the bed comfortably, no acute distress, awake alert and oriented.. HEENT: Normocephalic. Neck is supple. Pupils reactive. Nostrils clear. Oral cavity is moist. Neck reveals no JVD, carotid bruits, or thyromegaly. CHEST EXAMINATION: Trachea is central. Symmetrical expansion. Bibasilar diminished sounds. Left basilar crackles.. CARDIAC: Normal S1, S2 with no gallops. No murmurs ABDOMEN: Soft. Bowel sounds present. Nontender. No organomegaly. No abdominal bruits. Extremities: Bilateral lower extremity 2+ edema. No clubbing or cyanosis Neurologically awake, alert, oriented x3 with well-coordinated movements. No focal deficits noted Skin: No rash or skin lesions. Psychiatric: Coperative. Nonsuicidal, Musculoskeletal: No joint swelling or deformity. Normal range of motion. - Labs CBC & Chem 7: 10/13/22 03:40 10/13/22 03:40 Labs: Abnormal Lab Results - Last 24 Hours (Table) 10/12/22 10/12/22 10/13/22 Range/Units 19:13 20:18 03:40 WBC 14.8 H (3.8-10.6) k/uL Plt Count 104 L (150-450) k/uL Neutrophils # (Manual) 8.20 H (1.3-7.7) k/uL Monocytes # (Manual) 5.03 H (0-1.0) k/uL Sodium (137-145) mmol/L Chloride (98-107) mmol/L Carbon Dioxide (22-30) mmol/L BUN (7-17) mg/dL Glucose (74-99) mg/dL POC Glucose (mg/dL) 456 H (70-110) mg/dL Calcium (8.4-10.2) mg/dL Total Protein (6.3-8.2) g/dL Albumin (3.5-5.0) g/dL TSH 11.400 H (0.465-4.680) mIU/L 10/13/22 10/13/22 10/13/22 Range/Units 03:40 06:01 11:31 WBC (3.8-10.6) k/uL Plt Count (150-450) k/uL Neutrophils # (Manual) (1.3-7.7) k/uL Monocytes # (Manual) (0-1.0) k/uL Sodium 134 L (137-145) mmol/L Chloride 90 L (98-107) mmol/L Carbon Dioxide 39 H (22-30) mmol/L BUN 23 H (7-17) mg/dL Glucose 306 H (74-99) mg/dL POC Glucose (mg/dL) 213 H 232 H (70-110) mg/dL Calcium 7.7 L (8.4-10.2) mg/dL Total Protein 5.3 L (6.3-8.2) g/dL Albumin 2.8 L (3.5-5.0) g/dL TSH (0.465-4.680) mIU/L 10/13/22 Range/Units 16:15 WBC (3.8-10.6) k/uL Plt Count (150-450) k/uL Neutrophils # (Manual) (1.3-7.7) k/uL Monocytes # (Manual) (0-1.0) k/uL Sodium (137-145) mmol/L Chloride (98-107) mmol/L Carbon Dioxide (22-30) mmol/L BUN (7-17) mg/dL Glucose (74-99) mg/dL POC Glucose (mg/dL) 301 H (70-110) mg/dL Calcium (8.4-10.2) mg/dL Total Protein (6.3-8.2) g/dL Albumin (3.5-5.0) g/dL TSH (0.465-4.680) mIU/L Assessment and Plan Assessment: Acute on chronic CHF with preserved ejection fraction Bilateral recurrent pleural effusions. Status post right thoracentesis on 10/10/2022 and left thoracentesis on 10/12/2022. Leukocytosis History of pericardial effusion Chronic hypoxic respiratory failure Hypertension Hyperlipidemia Diabetes type 2 Hypothyroidism History of monoclonal B-cell lymphocytosis on follow-up with oncology as an outpatient Plan: Patient will be continued on telemetry monitoring. Continue with IV Lasix and monitor renal function. Continue with insulin regimen and titrate dose as needed. Continue with levothyroxine other home medications. Patient is currently on empiric antibiotics ceftriaxone and pending inflammatory markers. Cardiology, pulmonary and ID is on board. Time with Patient: Greater than 30
[2022-10-14 06:20] LABS: Glucose,Whole Blood 133 mg/dL (70-110)
[2022-10-14] MEDS: INSULIN ASPART (NovoLOG) 100 UNIT/ML VIAL SQ SCH ×4 (06:20→20:09)
[2022-10-14] MEDS: LEVOTHYROXINE 75 MCG TAB PO SCH (06:42)
[2022-10-14] MEDS: CALCIUM CARB-VIT D 500 MG-5 MCG TAB PO SCH ×2 (06:42→16:33)
--- NOTE | 2022-10-14 08:03 | XR ---
EXAMINATION TYPE: XR chest 1V portable DATE OF EXAM: 10/14/2022 7:53 AM COMPARISON: Chest radiographs from 10/12/2022 TECHNIQUE: XR chest 1V portable Portable AP radiograph of the chest. CLINICAL INDICATION:Female, 76 years old with history of pleural effusion; FINDINGS: Lungs/Pleura: Similar blunting of both costophrenic angles with associated atelectasis. No pneumothor ax. Pulmonary vascularity: Unremarkable. Heart/mediastinum: Cardiomediastinal silhouette is stable. Musculoskeletal: No acute osseous pathology. Dextrocurvature of the thoracic spine. IMPRESSION: Similar small left and [id number] right pleural effusions with associated atelectasis.
[2022-10-14] MEDS: IPRATROPIUM-ALBUTEROL 3 ML NEB INHALATION SCH ×4 (08:05→21:07)
[2022-10-14] MEDS: BUDESONIDE 0.5 MG/2 ML NEBU INHALATION SCH ×2 (08:05→21:07)
--- NOTE | 2022-10-14 08:15 | P.PN ---
Subjective Principal diagnosis: CHF The patient is a pleasant 76-year-old female patient with a past medical history significant for diabetes and hypertension and dyslipidemia as well as chronic lung disease the patient is on oxygen continuously as well as history of pleural effusion status post pleurocentesis and also history of pericardial effusion. We consulted to see the patient for congestive heart failure. The patient presented to the hospital with progressive shortness of breath and lower extremities edema started about 2 months ago and has gotten worse over the last few days. She gained about 6-7 pounds. No discomfort in the chest and no dizziness or lightheadedness and no feeling of heart racing or fluttering and no presyncope or syncope. No fever and no chills and no cough or wheezing. When she presented to the hospital she was found to be in severe bilateral lower extremity edema and she was started on Lasix IV. She never diagnosed was congestive heart failure before. She was seen by our service March 2023 where she was diagnosed with small pericardial effusion detected only on the computed tomography scan and subsequently an echo showed small pericardial effusion that has been managed medically. The patient has no history of CAD or congestive heart failure or cardiac arrhythmia. She underwent also further workup including CBC and BNP came in to be unremarkable and the chest x-ray showed bilateral pleural effusion. Beside that she underwent an EKG which showed sinus mechanism with low voltage QRS and pseudo-infarct pattern concerning for possible Amyloid. That has to be investigated as an outpatient 10/13/2022 The patient was seen and evaluated this morning. She is feeling better. The s hortness of breath has improved as well as the lower extremity edema. She underwent an echo which revealed normal LV systolic function was pulmonary hypertension and dilated right ventricle. Currently the patient is on Lasix and we'll continue that. Continue monitor the kidney function and electrolytes. The patient does have an appointment to go to [facility] for further investigation. October 142022 The patient was seen and evaluated this morning. She still hypoxic on oxygen and currently she is on 5 L to maintain normal oxygen saturation. She is feeling better in terms of shortness of breath and bilateral lower extremities edema. No symptoms of any chest pain or chest discomfort at this point. The echo showed normal LV systolic function with pulmonary hypertension and dilated right ventricle. The patient currently is on Lasix IV. No blood work as of this morning. The chest x-ray from the morning showed a small left and moderate right pleural effusion. The examination is remarkable for severe bilateral lower extremity edema appeared to be pitting edema and also edema in the lower abdomen. Beside that she has initial reading sounds bilaterally. Assessment Heart failure exacerbation likely related to heart failure with preserved ejection fraction Known chronic hypoxic respiratory failure on oxygen at home History of recurrent pleural effusion status post thoracentesis History of pericardial effusion on echo from March 2022 Multiple comorbid conditions including diabetes and hypertension and dyslipidemia Plan Continue the current medical regimen Continue monitoring the kidney function and electrolytes Continue IV Lasix for now. Follow-up with the blood work from the morning. The blood work is not up as of yet Follow-up with the patient Objective - Vital Signs Vital signs: Vital Signs Temp 97.7 F 10/13/22 20:00 Pulse 80 10/14/22 08:06 Resp 16 10/14/22 03:21 BP 122/55 10/14/22 03:21 Pulse Ox 100 10/14/22 08:06 FiO2 Intake & Output 10/13/22 10/14/22 10/14/22 18:59 06:59 18:59 Intake Total 380 220 Output Total 700 600 Balance -320 -380 Weight 54.7 kg Intake: IV 20 20 Invasive Line 1 20 20 Oral 360 200 Output: Urine 700 600 Other: Voiding Method Toilet External Catheter - Labs CBC & Chem 7: 10/13/22 03:40 10/13/22 03:40 Labs: Abnormal Lab Results - Last 24 Hours (Table) 10/13/22 10/13/22 10/13/22 Range/Units 11:31 16:15 20:44 POC Glucose (mg/dL) 232 H 301 H 324 H (70-110) mg/dL 10/14/22 Range/Units 06:18 POC Glucose (mg/dL) 133 H (70-110) mg/dL Microbiology - Last 24 Hours (Table) 10/12/22 19:20 Blood Culture - Preliminary Blood
[2022-10-14] MEDS: FERROUS SULFATE 325 MG TAB PO SCH (08:31)
[2022-10-14] MEDS: ASPIRIN 325 MG TAB PO SCH (08:32)
[2022-10-14] MEDS: NITROGLYCERIN OINT 1 INCH/GM PACKET TOPICAL SCH ×4 (08:32→21:35)
[2022-10-14] MEDS: PANTOPRAZOLE 40 MG TABLET PO SCH (08:32)
[2022-10-14] MEDS: DOCUSATE 100 MG CAP PO SCH ×2 (08:32→19:20)
[2022-10-14] MEDS: LORATADINE 10 MG TAB PO SCH (08:32)
[2022-10-14] MEDS: FUROSEMIDE 10 MG/ML 4 ML VIAL IV SCH ×2 (08:32→19:20)
[2022-10-14] MEDS: MONTELUKAST 10 MG TAB PO SCH (08:32)
[2022-10-14] MEDS: ACETAMINOPHEN TAB 325 MG TAB PO PRN (08:32)
--- NOTE | 2022-10-14 10:26 | P.GSCN ---
History of Present Illness Consult date: 10/14/22 Reason for Consult: Recurrent bilateral pleural effusions Requesting physician: Steve Barron History of present illness: This is a 76-year-old female patient who follows on an outpatient basis with Dr. Steve Barron for her primary care service and she also follows with Dr. Connelly for monoclonal B cell lymphocytosis. She has a past medical history significant for recurrent bilateral pleural effusions, with history of thoracentesis 2 to her right side, hypertension, hyperlipidemia, monoclonal B-cell lymphocytosis, thyroid disorder, diabetes mellitus, COPD, chronic hypoxic respiratory failure with home oxygen dependence on 3 L nasal cannula and a remote history of tobacco dependence in which she states she quit smoking at age 39. On 10/11/2022 the patient presented to the emergency department here at [facility] with complaints of leg edema and dyspnea with occasional cough. She denies any recent fever, chills, nausea, vomiting, diarrhea, constipation, headache, hemoptysis, hematemesis, palpitations, recent trauma, presyncope or syncope. She does report that she has become fairly weak and fatigued over the past 2 months. A chest x-ray was completed in the emergency department which showed moderate-sized bilateral pleural effusions. Due to the pleural effusions Dr. Claire from pulmonary medicine was consulted and the patient underwent a left thoracentesis on 10/12/2022 with 1.6 L of dark brown/red in color fluid drained. Pathology results for the pleural fluid remains pending. It was recommended by pulmonary medicine service to drain the right pleural effusion, although the patient wanted to wait until today 10/14/2022. A transthoracic 2-D echocardiogram was also completed which showed a mild to moderate concentric left ventricular hypertrophy, with a left ventricular ejection fraction estimated at 60-65%, a trileaflet aortic valve with no aortic valve stenosis or aortic valve regurgitation, mild mitral valve regurgitation, mild tricuspid valve regurgitation, no pulmonic valve regurgitation, a large pleural effusion and a question of a small posterior pericardial effusion. A chest x-ray was completed today 10/14/2022 which shows a similar small left and small to moderate right pleural effusions with associated atelectasis. Subsequently, due to the patient's recurrent pleural effusions a consult was placed to cardiothoracic surgery for further evaluation and treatment recommendations including placement of bilateral Pleurx catheters. Review of Systems A 14 point review of systems was completed and was negative except as mentioned in the HPI. Past Medical History Past Medical History: Heart Failure, COPD, Diabetes Mellitus, Hyperlipidemia, Hypertension, Thyroid Disorder Additional Past Medical History / Comment(s): left leg swells at end of day every day for about a year, bilateral lower extremity edema History of Any Multi-Drug Resistant Organisms: None Reported Past Surgical History: Cholecystectomy Additional Past Surgical History / Comment(s): cholecystectomy, cataract surgery Past Anesthesia/Blood Transfusion Reactions: No Reported Reaction Past Psychological History: No Psychological Hx Reported Smoking Status: Former smoker (Quit smoking at age 39) Past Alcohol Use History: Occasional Past Drug Use History: None Reported - Past Family History Father Family Medical History: Cancer, Prostate Disorder Additional Family Medical History / Comment(s): prostate CA Mother Additional Family Medical History / Comment(s): parkinsons Medications and Allergies Home Medications Medication Instructions Recorded Confirmed Type Simvastatin 40 mg PO HS 07/03/22 10/11/22 History Acetaminophen Tab [Tylenol] 650 mg PO Q6HR PRN tab 07/10/22 10/11/22 Rx Bumetanide [BUMEX] 1 mg PO DAILY 09/10/22 10/11/22 History Ferrous Sulfate [Iron (65 MG 325 mg PO DAILY 09/10/22 10/11/22 History Elemental)] Fluticasone/Umeclidin/Vilanter 1 puff INHALATION RT-DAILY 09/10/22 10/11/22 Hist ory [Trelegy Ellipta 200-62.5-25] Loratadine [Claritin] 10 mg PO DAILY 09/10/22 10/11/22 History Montelukast [Singulair] 10 mg PO DAILY 09/10/22 10/11/22 History Omeprazole 40 mg PO DAILY 09/10/22 10/11/22 History Ondansetron [Zofran] 4 mg PO Q6H PRN 09/10/22 10/11/22 History Ipratropium-Albuterol Nebulize 3 ml INHALATION RT-QID each 09/18/22 10/11/22 Rx [Duoneb 0.5 mg-3 mg/3 ml Soln] Calcium Carb-Vit D 500Mg-5Mcg 1 tab PO BID-W/MEALS 10/11/22 10/11/22 History [Oscal 500+D 5 Mcg (200 Iu)] Furosemide [Lasix] 40 mg PO BID 10/11/22 10/11/22 History Insulin Glargine-Yfgn [Semglee 15 unit SQ HS 10/11/22 10/11/22 History (Yfgn) Pen] Insulin Lispro 4 units SQ ACHS PRN 10/11/22 10/11/22 History Insulin Lispro See Protocol SQ ACHS PRN 10/11/22 10/11/22 History Levothyroxine Sodium [Synthroid] 150 mcg PO DAILY 10/11/22 10/11/22 History Allergies Allergy/AdvReac Type Severity Reaction Status Date / Time No Known Allergies Allergy Verified 10/11/22 16:04 Surgical - Exam Vital Signs Temp Pulse Resp BP Pulse Ox 98.2 F 90 22 120/59 87 L 10/11/22 13:00 10/11/22 13:00 10/11/22 13:00 10/11/22 13:00 10/11/22 13:00 - General 76-year-old female patient, who is sitting up to the bedside chair on the cardiac stepdown unit, cooperative, and is in no acute distress. well developed, well nourished, no distress, no pain, chronically ill - Eyes PERRL, normal ocular movement, no pale, no icteric - ENT normal pinna, normal nares, normal mucosa, no hearing loss, no congestion - Neck Submandibular Lymphadenopathy no bruits, trachea midline, no venous distension - Respiratory Lung sounds essentially clear throughout, diminished bilateral bases. No wheezes, rhonchi or crackles. Respirations are symmetrical and nonlabored. 3 L nasal cannula oxygen. - Cardiovascular Regular rhythm and rate. S1 and S2 present, negative for S3, gallop or murmur. - Abdomen Abdomen is soft, nontender and nondistended. Active bowel sounds present in all 4 abdominal quadrants. No guarding or rigidity. No organomegaly appreciated. - Genitourinary Deferred - Rectum Deferred - Integumentary Skin is warm and dry. No clubbing or cyanosis is present. 1+ edema to her bilateral lower extremities. no rash, no abnormal pigmentation - Neurologic No focal deficits. - Musculoskeletal Equal strength to her bilateral upper and lower extremities. - Psychiatric oriented to time, oriented to person, oriented to place, speech is normal, memory intact Results - Labs 10/13/22 03:40 10/13/22 03:40 Abnormal Lab Results - Last 24 Hours (Table) 10/13/22 10/13/22 10/13/22 Range/Units 11:31 16:15 20:44 POC Glucose (mg/dL) 232 H 301 H 324 H (70-110) mg/dL 10/14/22 Range/Units 06:18 POC Glucose (mg/dL) 133 H (70-110) mg/dL Microbiology - Last 24 Hours (Table) 10/12/22 19:20 Blood Culture - Preliminary Blood - Imaging Chest x-ray: report reviewed, image reviewed Assessment and Plan Assessment: Recurrent bilateral pleural effusions, unclear etiology, status post left thoracentesis on 10/12/2022 with 1.6 L of pleural fluid drained, cytology pending, status post 2 thoracentesis to her right side Dyspnea, likely secondary to above Chronic hypoxic respiratory failure, on home oxygen 3 L nasal cannula History of monoclonal B-cell lymphocytosis History of hypertension History of hyperlipidemia History of diabetes mellitus History of thyroid disorder Remote history of tobacco dependence, quit at age 39 Plan: The patient was seen and examined at her bedside on the cardiac stepdown unit. Her chart and diagnostics were reviewed. Her case was discussed in detail with Dr. Austen Page from cardiothoracic surgery. At this point recommend a thoracentesis to the right side if patient is willing. According to the patient she is following up with a panel of physicians at [facility] next 10/22/2022 for follow-up to her recurrent pleural effusions. If the pleural effusions recur, discussed the placement of bilateral Pleurx catheters with the patient. Continue to follow the pleural fluid cytology results. Medical management and other comorbidities per primary care service. More recommendations to follow based on patient's clinical course. Thank you Dr. Barron for this consult and we look forward to working with you in the care of this patient. I have personally seen and examined the patient, performed the documentation and the assessment and plan as written. 30 minutes spent on the visit . Benton SALAZAR
[2022-10-14 11:37] LABS: ALT 14 U/L (4-34); AST 22 U/L (14-36); African American GFR (CKD) >90 (>60 ml/min/1.73 sqM); Albumin 3.1 g/dL (3.5-5.0); Alkaline Phosphatase 102 U/L (38-126); Anion Gap 8 mmol/L; Blood Urea Nitrogen 18 mg/dL (7-17); Calcium 7.5 mg/dL (8.4-10.2); Carbon Dioxide 37 mmol/L (22-30); Chloride 90 mmol/L (98-107); Glucose 177 mg/dL (74-99); Non-African American GFR(CKD) 88 (>60 ml/min/1.73 sqM); Potassium 3.6 mmol/L (3.5-5.1); Sodium 135 mmol/L (137-145); Total Bilirubin 0.3 mg/dL (0.2-1.3); Total Protein 5.8 g/dL (6.3-8.2)
--- NOTE | 2022-10-14 11:39 | P.PN ---
Subjective Progress Note Date: 10/14/22 Principal diagnosis: Pleural effusion. Pulmonary consult dated 10/12/2022. 76-year-old female who presented to the emergency department, for lower extremity edema, and shortness of breath. The patient has had recent thoracentesis performed by my partner, just 3 days ago, on the right side. She was marked on both sides, but she did not have a left-sided thoracentesis as yet. The patient is seen today in room 377. The Band-Aid from the recent right-sided thoracentesis is still noted. The left posterior chest still has a marking, with OpSite over it. The patient is complaining of shortness of breath, and would like a left-sided thoracentesis if possible. We did order an ultrasound of the chest, but at the time of the evaluation of the patient, it had not yet been done. The patient denies any chest pain or chest discomfort. She denies any fever or chills. She's not coughing up producing any phlegm. She has a history of diabetes, hyperlipidemia, hypertension, and thyroid disease. White count is 14, hemoglobin 12.7, hematocrit 38.6, and platelet count 104,000. Sodium 136, potassium 4.1, chlorides 93, CO2 35, BUN 22, and creatinine 0.50. Troponins were negative 3. N-terminal proBNP was 593. Pro- calcitonin level was 0.26. Chest x-ray on October 11 shows bilateral effusions, moderate in size. Postprocedure chest x-ray shows a decrease in the left-sided pleural effusion. There was no evidence of pneumothorax. Recent analysis of the fluid removed by my partner on October 10, shows evidence of an exudate. The protein value was 3.54 g. The pathology report from that thoracentesis is currently pending. 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 Progress note dated 10/13/2022. 76-year-old female seen in room 377. Yesterday, we did a left-sided thoracentesis, and 1.6 L of fluid was removed from the left pleural space. It was not sent for analysis, as the patient has had previous thoracentesis performed, by my partners, which have been evaluated. The most recent thoracentesis, before [facility], was done on October 10. Currently, the patient is on 3 L of oxygen. She's not receiving any IV fluids. We had the right side marked again by ultrasound, but the patient did not want to have thoracentesis performed today. She prefers to wait. White count 14.8, hemoglobin 11.4, hematocrit 36.2, and platelet count 104,000. Sodium 134, potassium 3.5, chlorides 90, CO2 39, BUN 23, creatinine 0.54. TSH was 11.4. Ultrasound of the right pleural space shows a pocket that is almost 12 cm in size. Flapping tissue is seen within the pocket. Progress note dated 10/14/2022. 76-year-old female seen today in room 375. The patient had a left-sided thoracentesis performed a couple days ago, and 1.6 L of fluid was removed from the left pleural space. The patient has had multiple thoracentesis in the past. Each time, the sampling was negative for malignancy. She is currently being evaluated by hematology for a monoclonal B-cell lymphocytosis. The patient has an appointment at the [facility], later this month. Currently, she has a significant effusion on the right side again, but refuses thoracentesis. Labs today include a glucose of 133. Chest x-ray shows a large right-sided pleural effusion, and a re-developing left-sided pleural effusion. Objective - Vital Signs Vital signs: Vital Signs Temp 97.8 F 10/14/22 08:22 Pulse 74 10/14/22 08:22 Resp 16 10/14/22 08:22 BP 122/64 10/14/22 08:22 Pulse Ox 97 10/14/22 08:22 FiO2 Intake & Output 10/13/22 10/14/22 10/14/22 18:59 06:59 18:59 Intake Total 380 220 250 Output Total 700 600 Balance -320 -380 250 Weight 54.7 kg Intake: IV 20 20 10 Invasive Line 1 20 20 10 Oral 360 200 240 Output: Urine 700 600 Other: Voiding Method Toilet External Catheter External Catheter - Exam No acute distress, oriented 3. Currently on 3 L. No obvious respiratory distress. HEENT examination is grossly unremarkable. Neck supple. Full range of motion. No adenopathy thyromegaly or neck vein distention. Cardiovascular examination reveals regular rhythm rate. S1-S2 normal. No S3 or S4. No discernible murmur noted. Heart rate 84 bpm. Lungs reveal diminished breath sounds at both bases, right greater than left. No wheezes or rhonchi. 3 L saturation is 97%. Abdomen soft bowel sounds are heard. No masses or tenderness. Extremities are intact. No cyanosis clubbing or edema. Skin is without rash or lesion. Neurologic examination is brief but nonfocal. - Labs CBC & Chem 7: 10/13/22 03:40 10/13/22 03:40 Labs: Abnormal Lab Results - Last 24 Hours (Table) 10/13/22 10/13/22 10/14/22 Range/Units 16:15 20:44 06:18 POC Glucose (mg/dL) 301 H 324 H 133 H (70-110) mg/dL Microbiology - Last 24 Hours (Table) 10/12/22 19:20 Blood Culture - Preliminary Blood Assessment and Plan Assessment: Recurrent bilateral pleural effusions, of unclear etiology. Recent right-sided thoracentesis, 10/10/2022, which was an exudate. Status post left-sided thoracentesis, 1.6 L removed, 10/12/2022, not analyzed. 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 History of hyperlipidemia. History of diabetes mellitus. History of hypothyroidism. History of hypertension. Previous history of tobacco use. Plan: Plan dated 10/12/2022. 1.6 L of dark brown/red fluid was removed from the left pleural space today. The patient tolerated the procedure well. We have ordered a right-sided ultrasound, with possible markings, to determine whether or not it would be usef ul to repeat to thoracentesis on the right side. The patient's chest x-ray after the left-sided thoracentesis, did not reveal any pneumothorax. The patient tolerated the procedure extremely well. We will continue to follow make recommendations along the way. The fluid removed from the right lung, on October 10, was clearly an exudate. Pathology is pending. Plan dated 10/13/2022. The patient did not want a right-sided thoracentesis today. We are still waiting for the results of the cytology report from the thoracentesis that was done on the right side, on October 10. Labs, x-rays, and medications are reviewed. Prognosis is guarded. We will continue to follow the patient and make recommend ations along the way. Plan dated 10/14/2022. Apparently the primary service consulted cardiothoracic surgery. Also, the patient has an appointment at the [facility], later this month. Today, we asked about doing a right-sided thoracentesis, but the patient would prefer not to have one done. Labs, x-rays, medications are reviewed. She had a recent right-sided thoracentesis on October 10. Additional recommendations and suggestions are forthcoming. Time with Patient: Less than 30
[2022-10-14 11:40] LABS: Glucose,Whole Blood 179 mg/dL (70-110)
[2022-10-14 11:44] LABS: Basophils % (A) 0 %; Eosinophils # (A) 0.1 k/uL (0-0.7); Eosinophils % (A) 1 %; HGB 11.6 gm/dL (11.4-16.0); Lymphocytes # (A) 1.8 k/uL (1.0-4.8); Lymphocytes % (A) 14 %; MCH 28.7 pg (25.0-35.0); MCHC 33.1 g/dL (31.0-37.0); MCV 86.8 fL (80.0-100.0); Mean Platelet Volume 13.5; Monocytes # (A) 2.1 k/uL (0-1.0); Monocytes % (A) 16 %; Neutrophils # (A) 8.3 k/uL (1.3-7.7); Neutrophils % (A) 65 %; Platelet Count 114 k/uL (150-450); RBC 4.03 m/uL (3.80-5.40); RDW 15.5 % (11.5-15.5); WBC 12.8 k/uL (3.8-10.6)
[2022-10-14 16:21] LABS: Glucose,Whole Blood 405 mg/dL (70-110)
[2022-10-14 16:21] LABS: Glucose,Whole Blood 354 mg/dL (70-110)
[2022-10-14] MEDS: SIMETHICONE 80 MG CHEWABLE PO SCH ×2 (18:33→21:35)
[2022-10-14] MEDS: ATORVASTATIN 20 MG TAB PO SCH (19:20)
[2022-10-14 20:06] LABS: Glucose,Whole Blood 428 mg/dL (70-110)
[2022-10-14] MEDS: INSULIN DETEMIR (LEVEMIR) 100 UNIT/ML SYR SQ SCH (20:53)
--- NOTE | 2022-10-14 22:21 | PN ---
PROGRESS NOTE SUBJECTIVE: Ping Villalpando is better with her breathing. She is on 2 L and in the mid-to-high 90s. Remains on broad-spectrum antibiotics for possible infection. She was asked for some for constipation. So far, her blood culture came back negative. She feels much better every day. She is 96 on 3 L. Blood pressure 135/61, temp 97.8, pulse 97, respiratory rate 16. She is up eating normal food. She has good strength. She is going to get PT, OT involved and possibly discharge her home soon. She wants to go home and not to the [facility]. ASSESSMENT: Recurrent pleural effusion, pulmonary hypertension, chronic obstructive pulmonary disease, status post COVID, right-sided heart failure, recurrent pleural effusions, macrocytosis, rule out smoldering leukemia. Wait for possible discharge home in the next few days. She has simethicone for constipation. MMODL / IJN: [id number] /
[2022-10-15 06:29] LABS: Glucose,Whole Blood 59 mg/dL (70-110)
[2022-10-15] MEDS: CALCIUM CARB-VIT D 500 MG-5 MCG TAB PO SCH ×2 (06:38→17:05)
[2022-10-15] MEDS: LEVOTHYROXINE 75 MCG TAB PO SCH (06:38)
[2022-10-15] MEDS: INSULIN ASPART (NovoLOG) 100 UNIT/ML VIAL SQ SCH ×4 (06:38→21:46)
[2022-10-15 06:51] LABS: Glucose,Whole Blood 53 mg/dL (70-110)
[2022-10-15 07:12] LABS: Glucose,Whole Blood 84 mg/dL (70-110)
--- NOTE | 2022-10-15 07:56 | XR ---
EXAMINATION TYPE: XR chest 2V DATE OF EXAM: 10/15/2022 HISTORY: Shortness of breath. COMPARISON: 10/14/2022 TECHNIQUE: Single view of the chest is submitted. FINDINGS: Diminished lung volumes with pulmonary venous congestion and basilar effusions and atelectasis. Under lying infiltrates of other etiology not excluded. The heart is stable. Hilar and mediastinal structures are within normal limits. Degenerative changes are seen of the dorsal spine. IMPRESSION: 1. Diminished lung volumes with pulmonary venous congestion and basilar effusions and atelectasis. U nderlying infiltrates of other etiology not excluded.
[2022-10-15 08:13] LABS: HCT 38.8 % (34.0-46.0); HGB 12.2 gm/dL (11.4-16.0); Hypochromasia Slight; MCH 27.2 pg (25.0-35.0); MCHC 31.4 g/dL (31.0-37.0); MCV 86.5 fL (80.0-100.0); Mean Platelet Volume 14.3; Platelet Count 106 k/uL (150-450); RBC 4.49 m/uL (3.80-5.40); RDW 15.5 % (11.5-15.5); WBC 15.4 k/uL (3.8-10.6)
[2022-10-15] MEDS: ASPIRIN 325 MG TAB PO SCH (08:20)
[2022-10-15] MEDS: LORATADINE 10 MG TAB PO SCH (08:21)
[2022-10-15] MEDS: MONTELUKAST 10 MG TAB PO SCH (08:21)
[2022-10-15] MEDS: PANTOPRAZOLE 40 MG TABLET PO SCH (08:21)
[2022-10-15] MEDS: SIMETHICONE 80 MG CHEWABLE PO SCH ×4 (08:21→21:47)
[2022-10-15] MEDS: FERROUS SULFATE 325 MG TAB PO SCH (08:21)
[2022-10-15] MEDS: DOCUSATE 100 MG CAP PO SCH ×2 (08:21→20:29)
[2022-10-15] MEDS: FUROSEMIDE 10 MG/ML 4 ML VIAL IV SCH ×2 (08:22→20:30)
[2022-10-15] MEDS: NITROGLYCERIN OINT 1 INCH/GM PACKET TOPICAL SCH (08:22)
[2022-10-15] MEDS: BUDESONIDE 0.5 MG/2 ML NEBU INHALATION SCH ×2 (08:24→20:42)
[2022-10-15] MEDS: IPRATROPIUM-ALBUTEROL 3 ML NEB INHALATION SCH ×4 (08:24→20:42)
[2022-10-15 08:30] LABS: ALT 15 U/L (4-34); AST 24 U/L (14-36); African American GFR (CKD) >90 (>60 ml/min/1.73 sqM); Albumin 3.1 g/dL (3.5-5.0); Alkaline Phosphatase 100 U/L (38-126); Anion Gap 5 mmol/L; Blood Urea Nitrogen 15 mg/dL (7-17); Calcium 7.7 mg/dL (8.4-10.2); Carbon Dioxide 40 mmol/L (22-30); Chloride 91 mmol/L (98-107); Glucose 97 mg/dL (74-99); Non-African American GFR(CKD) >90 (>60 ml/min/1.73 sqM); Potassium 3.5 mmol/L (3.5-5.1); Sodium 136 mmol/L (137-145); Total Bilirubin 0.3 mg/dL (0.2-1.3); Total Protein 5.8 g/dL (6.3-8.2)
[2022-10-15 11:17] LABS: Lymphocytes # (M) 4.62 k/uL (1.0-4.8); Monocytes # (M) 3.08 k/uL (0-1.0); Neutrophils # (M) 7.85 k/uL (1.3-7.7); Neutrophils % (M) 51 %; Nucleated Red Blood Cells 0 /100 WBC (0-0); Total Cells Counted 200
[2022-10-15 11:18] LABS: Large Platelets Present
[2022-10-15 11:29] LABS: Glucose,Whole Blood 120 mg/dL (70-110)
--- NOTE | 2022-10-15 11:47 | P.PN ---
Subjective Progress Note Date: 10/15/22 76-year-old female who presented to the emergency department, for lower extremity edema, and shortness of breath. The patient has had recent thoracentesis performed by my partner, just 3 days ago, on the right side. She was marked on both sides, but she did not have a left-sided thoracentesis as yet. The patient is seen today in room 377. The Band-Aid from the recent right-sided thoracentesis is still noted. The left posterior chest still has a marking, with OpSite over it. The patient is complaining of shortness of breath, and would like a left-sided thoracentesis if possible. We did order an ultrasound of the chest, but at the time of the evaluation of the patient, it had not yet been done. The patient denies any chest pain or chest discomfort. She denies any fever or chills. She's not coughing up producing any phlegm. She has a history of diabetes, hyperlipidemia, hypertension, and thyroid disease. White count is 14, hemoglobin 12.7, hematocrit 38.6, and platelet count 104,000. Sodium 136, potassium 4.1, chlorides 93, CO2 35, BUN 22, and creatinine 0.50. Troponins were negative 3. N-terminal proBNP was 593. Pro- calcitonin level was 0.26. Chest x-ray on October 11 shows bilateral effusions, moderate in size. Postprocedure chest x-ray shows a decrease in the left-sided pleural effusion. There was no evidence of pneumothorax. Recent analysis of the fluid removed by my partner on October 10, shows evidence of an exudate. The protein value was 3.54 g. The pathology report from that thoracentesis is currently pending. 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 Progress note dated 10/13/2022. 76-year-old female seen in room 377. Yesterday, we did a left-sided thoracentesis, and 1.6 L of fluid was removed from the left pleural space. It was not sent for analysis, as the patient has had previous thoracentesis performed, by my partners, which have been evaluated. The most recent thoracentesis, before mine, was done on October 10. Currently, the patient is on 3 L of oxygen. She's not receiving any IV fluids. We had the right side marked again by ultrasound, but the patient did not want to have thoracentesis performed today. She prefers to wait. White count 14.8, hemoglobin 11.4, hematocrit 36.2, and platelet count 104,000. Sodium 134, potassium 3.5, chlorides 90, CO2 39, BUN 23, creatinine 0.54. TSH was 11.4. Ultrasound of the right pleural space shows a pocket that is almost 12 cm in size. Flapping tissue is seen within the pocket. Progress note dated 10/14/2022. 76-year-old female seen today in room 375. The patient had a left-sided thoracentesis performed a couple days ago, and 1.6 L of fluid was removed from the left pleural space. The patient has had multiple thoracentesis in the past. Each time, the sampling was negative for malignancy. She is currently being ev aluated by hematology for a monoclonal B-cell lymphocytosis. The patient has an appointment at the [facility], later this month. Currently, she has a significant effusion on the right side again, but refuses thoracentesis. Labs today include a glucose of 133. Chest x-ray shows a large right-sided pleural effusion, and a re-developing left-sided pleural effusion. On 10/15/2021 the patient is on 3 L of oxygen by nasal cannula. The patient came into the hospital because of shortness of breath and pleural effusion. She has a left-sided thoracentesis and I removed 1.6 L of fluid last week. The patient had multiple thoracenteses in the past. She is currently being evaluated for monoclonal B-cell disease and she has an appointment at the [facility]. During this current admission, repeat thoracentesis was done on the left. She has no specific complaint otherwise for now. The most recent chest x-ray from 10/15/2022 still showing bilateral pleural effusions Objective - Vital Signs Vital signs: Vital Signs Temp 97.6 F 10/15/22 08:15 Pulse 92 10/15/22 08:44 Resp 16 10/15/22 08:16 BP 121/69 10/15/22 08:15 Pulse Ox 100 10/15/22 08:15 FiO2 Intake & Output 10/14/22 10/15/22 10/15/22 18:59 06:59 18:59 Intake Total 618 10 0 Output Total 2 150 Balance 616 -140 0 Intake: IV 20 10 Invasive Line 1 20 10 Oral 598 0 Output: Urine 2 150 Other: Voiding Method External Catheter External Catheter # Voids 2 # Bowel Movements 1 - Exam No acute distress, oriented 3. Currently on 3 L. No obvious respiratory distress. HEENT examination is grossly unremarkable. Neck supple. Full range of motion. No adenopathy thyromegaly or neck vein distention. Cardiovascular examination reveals regular rhythm rate. S1-S2 normal. No S3 or S4. No discernible murmur noted. n Lungs reveal diminished breath sounds at both bases, right greater than left. No wheezes or rhonchi. 3 L saturation is 97%. Abdomen soft bowel sounds are heard. No masses or tenderness. Extremities are intact. No cyanosis clubbing or edema. Skin is without rash or lesion. Neurologic examination is brief but nonfocal. - Labs CBC & Chem 7: 10/15/22 07:17 10/15/22 07:17 Labs: Abnormal Lab Results - Last 24 Hours (Table) 10/14/22 10/14/22 10/14/22 Range/Units 10:46 10:46 16:16 WBC 12.8 H (3.8-10.6) k/uL Plt Count 114 L (150-450) k/uL Neutrophils # 8.3 H (1.3-7.7) k/uL Neutrophils # (Manual) (1.3-7.7) k/uL Monocytes # 2.1 H (0-1.0) k/uL Monocytes # (Manual) (0-1.0) k/uL Sodium (137-145) mmol/L Chloride (98-107) mmol/L Carbon Dioxide (22-30) mmol/L Creatinine (0.52-1.04) mg/dL POC Glucose (mg/dL) 405 H (70-110) mg/dL Calcium (8.4-10.2) mg/dL Total Protein (6.3-8.2) g/dL Albumin (3.5-5.0) g/dL Procalcitonin 0.40 H (0.02-0.09) ng/mL 10/14/22 10/14/22 10/15/22 Range/Units 16:18 20:05 06:27 WBC (3.8-10.6) k/uL Plt Count (150-450) k/uL Neutrophils # (1.3-7.7) k/uL Neutrophils # (Manual) (1.3-7.7) k/uL Monocytes # (0-1.0) k/uL Monocytes # (Manual) (0-1.0) k/uL Sodium (137-145) mmol/L Chloride (98-107) mmol/L Carbon Dioxide (22-30) mmol/L Creatinine (0.52-1.04) mg/dL POC Glucose (mg/dL) 354 H 428 H 59 L (70-110) mg/dL Calcium (8.4-10.2) mg/dL Total Protein (6.3-8.2) g/dL Albumin (3.5-5.0) g/dL Procalcitonin (0.02-0.09) ng/mL 10/15/22 10/15/22 10/15/22 Range/Units 06:50 07:17 07:17 WBC 15.4 H (3.8-10.6) k/uL Plt Count 106 L (150-450) k/uL Neutrophils # (1.3-7.7) k/uL Neutrophils # (Manual) 7.85 H (1.3-7.7) k/uL Monocytes # (0-1.0) k/uL Monocytes # (Manual) 3.08 H (0-1.0) k/uL Sodium 136 L (137-145) mmol/L Chloride 91 L (98-107) mmol/L Carbon Dioxide 40 H (22-30) mmol/L Creatinine 0.51 L (0.52-1.04) mg/dL POC Glucose (mg/dL) 53 L (70-110) mg/dL Calcium 7.7 L (8.4-10.2) mg/dL Total Protein 5.8 L (6.3-8.2) g/dL Albumin 3.1 L (3.5-5.0) g/dL Procalcitonin (0.02-0.09) ng/mL 10/15/22 Range/Units 11:26 WBC (3.8-10.6) k/uL Plt Count (150-450) k/uL Neutrophils # (1.3-7.7) k/uL Neutrophils # (Manual) (1.3-7.7) k/uL Monocytes # (0-1.0) k/uL Monocytes # (Manual) (0-1.0) k/uL Sodium (137-145) mmol/L Chloride (98-107) mmol/L Carbon Dioxide (22-30) mmol/L Creatinine (0.52-1.04) mg/dL POC Glucose (mg/dL) 120 H (70-110) mg/dL Calcium (8.4-10.2) mg/dL Total Protein (6.3-8.2) g/dL Albumin (3.5-5.0) g/dL Procalcitonin (0.02-0.09) ng/mL Microbiology - Last 24 Hours (Table) 10/12/22 19:20 Blood Culture - Preliminary Blood Assessment and Plan Plan: Recurrent bilateral pleural effusions, of unclear etiology. The patient has had multiple thoracentesis twice on the left and the fluid cytologies been negative for malignancy. Recent right-sided thoracentesis, 10/10/2022, which was an exudate. Status post left-sided thoracentesis, 1.6 L removed, 10/12/2022, not analyzed. 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 History of hyperlipidemia. History of diabetes mellitus. History of hypothyroidism. History of hypertension. Previous history of tobacco Plan CT surgery has been involved and the patient wants to have an evaluation done at [facility] prior to doing any further pulmonary interventions. As such, no plans to insert the Pleurx catheter this point in time. We'll continue to follow. She is on 3 L of Oxymizer nasal cannula. She is calm and comfortable. She is taking Lasix 40 mg IV every 12 hours
--- NOTE | 2022-10-15 14:07 | P.PN ---
Subjective Progress Note Date: 10/15/22 HISTORY OF PRESENT ILLNESS: The patient is a pleasant 76-year-old female patient with a past medical history significant for diabetes and hypertension and dyslipidemia as well as chronic lung disease the patient is on oxygen continuously as well as history of pleural effusion status post pleurocentesis and also history of pericardial effusion. We consulted to see the patient for congestive heart failure. The patient presented to the hospital with progressive shortness of breath and lower extremities edema started about 2 months ago and has gotten worse over the last few days. She gained about 6-7 pounds. No discomfort in the chest and no dizziness or lightheadedness and no feeling of heart racing or fluttering and no presyncope or syncope. No fever and no chills and no cough or wheezing. When she presented to the hospital she was found to be in severe bilateral lower extremity edema and she was started on Lasix IV. She never diagnosed was congestive heart failure before. She was seen by our service March 2023 where she was diagnosed with small pericardial effusion detected only on the computed tomography scan and subsequently an echo showed small pericardial effusion that has been managed medically. The patient has no history of CAD or congestive heart failure or cardiac arrhythmia. She underwent also further workup including CBC and BNP came in to be unremarkable and the chest x-ray showed bilateral pleural effusion. Beside that she underwent an EKG which showed sinus mechanism with low voltage QRS and pseudo-infarct pattern concerning for possible Amyloid. That has to be investigated as an outpatient 10/13/2022 The patient was seen and evaluated this morning. She is feeling better. The shortness of breath has improved as well as the lower extremity edema. She underwent an echo which revealed normal LV systolic function was pulmonary hypertension and dilated right ventricle. Currently the patient is on Lasix and we'll continue that. Continue monitor the kidney function and electrolytes. The patient does have an appointment to go to [facility] for further investigation. October 142022 The patient was seen and evaluated this morning. She still hypoxic on oxygen and currently she is on 5 L to maintain normal oxygen saturation. She is feeling better in terms of shortness of breath and bilateral lower extremities edema. No symptoms of any chest pain or chest discomfort at this point. The echo showed normal LV systolic function with pulmonary hypertension and dilated right ventricle. The patient currently is on Lasix IV. No blood work as of this morning. The chest x-ray from the morning showed a small left and moderate right pleural effusion. 10/15/2022 Patient examined this morning at the bedside. Patient denies chest pain or pressure. She reports mild shortness of breath. She remains on IV Lasix. Kidney function is stable today. BUN 15. Creatinine 0.51. Vital signs are stable. PHYSICAL EXAM: VITAL SIGNS: Reviewed. GENERAL: Well-developed in no acute distress. NECK: Supple. No JVD or thyromegaly LUNGS: Respirations even and unlabored. Lungs diminished bilaterally HEART: Regular rate and rhythm. S1 and S2 heard. EXTREMITIES: Normal range of motion. No clubbing or cyanosis. Peripheral pulses intact. Bilateral lower extremity edema present ASSESSMENT: Shortness of breath Acute on chronic hypoxic respiratory failure, on oxygen at home Acute on chronic heart failure with preserved ejection fraction Recurrent pleural effusion Status post recent left thoracentesis History of pericardial effusion, hypertension Hyperlipidemia Diabetes PLAN: Continue current cardiac medications Continue IV Lasix Daily weights, accurate I&O, and monitor kidney function Patient currently declined to have any further thoracentesis performed or Pleurx catheter insertion. She states she has an appointment at [facility] next week for evaluation Further recommendations pending patient's course Nurse practitioner note has been reviewed by physician. Signing provider agrees with the documented findings, assessment, and plan of care. Objective - Vital Signs Vital signs: Vital Signs Temp 97.6 F 10/15/22 08:15 Pulse 84 10/15/22 12:14 Resp 16 10/15/22 11:48 BP 126/67 10/15/22 11:48 Pulse Ox 100 10/15/22 11:48 FiO2 Intake & Output 10/14/22 10/15/22 10/15/22 18:59 06:59 18:59 Intake Total 618 10 0 Output Total 2 150 Balance 616 -140 0 Intake: IV 20 10 Invasive Line 1 20 10 Oral 598 0 Output: Urine 2 150 Other: Voiding Method External Catheter External Catheter # Voids 2 # Bowel Movements 1 - Labs CBC & Chem 7: 10/15/22 07:17 10/15/22 07:17 Labs: Abnormal Lab Results - Last 24 Hours (Table) 10/14/22 10/14/22 10/14/22 Range/Units 10:46 16:16 16:18 WBC (3.8-10.6) k/uL Plt Count (150-450) k/uL Neutrophils # (Manual) (1.3-7.7) k/uL Monocytes # (Manual) (0-1.0) k/uL Sodium (137-145) mmol/L Chloride (98-107) mmol/L Carbon Dioxide (22-30) mmol/L Creatinine (0.52-1.04) mg/dL POC Glucose (mg/dL) 405 H 354 H (70-110) mg/dL Calcium (8.4-10.2) mg/dL Total Protein (6.3-8.2) g/dL Albumin (3.5-5.0) g/dL Procalcitonin 0.40 H (0.02-0.09) ng/mL 10/14/22 10/15/22 10/15/22 Range/Units 20:05 06:27 06:50 WBC (3.8-10.6) k/uL Plt Count (150-450) k/uL Neutrophils # (Manual) (1.3-7.7) k/uL Monocytes # (Manual) (0-1.0) k/uL Sodium (137-145) mmol/L Chloride (98-107) mmol/L Carbon Dioxide (22-30) mmol/L Creatinine (0.52-1.04) mg/dL POC Glucose (mg/dL) 428 H 59 L 53 L (70-110) mg/dL Calcium (8.4-10.2) mg/dL Total Protein (6.3-8.2) g/dL Albumin (3.5-5.0) g/dL Procalcitonin (0.02-0.09) ng/mL 10/15/22 10/15/22 10/15/22 Range/Units 07:17 07:17 11:26 WBC 15.4 H (3.8-10.6) k/uL Plt Count 106 L (150-450) k/uL Neutrophils # (Manual) 7.85 H (1.3-7.7) k/uL Monocytes # (Manual) 3.08 H (0-1.0) k/uL Sodium 136 L (137-145) mmol/L Chloride 91 L (98-107) mmol/L Carbon Dioxide 40 H (22-30) mmol/L Creatinine 0.51 L (0.52-1.04) mg/dL POC Glucose (mg/dL) 120 H (70-110) mg/dL Calcium 7.7 L (8.4-10.2) mg/dL Total Protein 5.8 L (6.3-8.2) g/dL Albumin 3.1 L (3.5-5.0) g/dL Procalcitonin (0.02-0.09) ng/mL Microbiology - Last 24 Hours (Table) 10/12/22 19:20 Blood Culture - Preliminary Blood
[2022-10-15 16:31] LABS: Glucose,Whole Blood 406 mg/dL (70-110)
[2022-10-15 16:33] LABS: Glucose,Whole Blood 385 mg/dL (70-110)
[2022-10-15 20:09] LABS: Glucose,Whole Blood 380 mg/dL (70-110)
[2022-10-15] MEDS: LOSARTAN 25 MG TAB PO SCH (20:29)
[2022-10-15] MEDS: ATORVASTATIN 20 MG TAB PO SCH (20:29)
[2022-10-15] MEDS: INSULIN DETEMIR (LEVEMIR) 100 UNIT/ML SYR SQ SCH (20:35)
[2022-10-15] MEDS: DAPAGLIFLOZIN PROPANEDIOL 5 MG TABLET PO SCH (20:35)
--- NOTE | 2022-10-15 20:57 | PN ---
PROGRESS NOTE SUBJECTIVE: White count 15.4, platelets 106, neutrophils 7.85. BUN is 15, creatinine 0.54, sodium 136, potassium 3.5. Sugars are in the 284 up to 300 to 400s. OBJECTIVE: VITAL SIGNS: Blood pressure 131/67, O2 is 99 on 3 L, temp 98.1, pulse 80 to 90, and respiratory rate 16 to 18. CARDIOVASCULAR: S1, S2. GI: Soft. HEMATOLOGY: Negative for Homans. Sitting up, giving appropriate answers. The patient was seen by Oncology and Pulmonary. Continue on current cardiac medications. Continue IV Lasix and further thoracentesis by PleurX catheter if needed. Await for Pulmonary to clear her, possibly go to a second opinion pain at [facility] later on October 22. Continue with PT OT in the meantime and get her set up for home. MMODL / IJN: [id number] /
[2022-10-15] MEDS ORDERED: bisacodyL 10 MG SUPP RECTAL SCH (21:00)
[2022-10-16 03:56] LABS: Appearance,Urine Clear (Clear); Bilirubin,Urine Negative (Negative); Blood,Urine Negative (Negative); Color,Urine Light Yellow; Glucose,Urine (UA) 2+ (Negative); Ketones,Urine Negative (Negative); Leukocyte Esterase,Urine Negative (Negative); Nitrite,Urine Negative (Negative); Protein,Urine Negative (Negative); Specific Gravity,Urine 1.008 (1.001-1.035); Urobilinogen,Urine <2.0 mg/dL (<2.0)
[2022-10-16 06:11] LABS: Glucose,Whole Blood 81 mg/dL (70-110)
[2022-10-16] MEDS: CALCIUM CARB-VIT D 500 MG-5 MCG TAB PO SCH ×2 (06:23→17:45)
[2022-10-16] MEDS: LEVOTHYROXINE 75 MCG TAB PO SCH (06:23)
[2022-10-16] MEDS: INSULIN ASPART (NovoLOG) 100 UNIT/ML VIAL SQ SCH ×4 (06:24→20:29)
[2022-10-16] MEDS: BUDESONIDE 0.5 MG/2 ML NEBU INHALATION SCH ×2 (08:09→21:16)
[2022-10-16] MEDS: IPRATROPIUM-ALBUTEROL 3 ML NEB INHALATION SCH ×4 (08:09→21:16)
[2022-10-16] MEDS: FERROUS SULFATE 325 MG TAB PO SCH (09:06)
[2022-10-16] MEDS: LOSARTAN 25 MG TAB PO SCH (09:06)
[2022-10-16] MEDS: bisacodyL 10 MG SUPP RECTAL SCH (09:06)
[2022-10-16] MEDS: LORATADINE 10 MG TAB PO SCH (09:07)
[2022-10-16] MEDS: DOCUSATE 100 MG CAP PO SCH ×2 (09:07→20:29)
[2022-10-16] MEDS: DAPAGLIFLOZIN PROPANEDIOL 5 MG TABLET PO SCH (09:07)
[2022-10-16] MEDS: PANTOPRAZOLE 40 MG TABLET PO SCH (09:07)
[2022-10-16] MEDS: FUROSEMIDE 10 MG/ML 4 ML VIAL IV SCH ×2 (09:07→20:29)
[2022-10-16] MEDS: MONTELUKAST 10 MG TAB PO SCH (09:07)
[2022-10-16] MEDS: SIMETHICONE 80 MG CHEWABLE PO SCH ×4 (09:08→20:32)
[2022-10-16 11:41] LABS: Glucose,Whole Blood 205 mg/dL (70-110)
[2022-10-16 12:56] LABS: African American GFR (CKD) >90 (>60 ml/min/1.73 sqM); Anion Gap 6 mmol/L; Blood Urea Nitrogen 15 mg/dL (7-17); Calcium 7.9 mg/dL (8.4-10.2); Carbon Dioxide 38 mmol/L (22-30); Chloride 91 mmol/L (98-107); Glucose 176 mg/dL (74-99); Non-African American GFR(CKD) >90 (>60 ml/min/1.73 sqM); Potassium 3.6 mmol/L (3.5-5.1); Sodium 135 mmol/L (137-145)
--- NOTE | 2022-10-16 13:37 | P.PN ---
Subjective Progress Note Date: 10/16/22 76-year-old female who presented to the emergency department, for lower extremity edema, and shortness of breath. The patient has had recent thoracentesis performed by my partner, just 3 days ago, on the right side. She was marked on both sides, but she did not have a left-sided thoracentesis as yet. The patient is seen today in room 377. The Band-Aid from the recent right-sided thoracentesis is still noted. The left posterior chest still has a marking, with OpSite over it. The patient is complaining of shortness of breath, and would like a left-sided thoracentesis if possible. We did order an ultrasound of the chest, but at the time of the evaluation of the patient, it had not yet been done. The patient denies any chest pain or chest discomfort. She denies any fever or chills. She's not coughing up producing any phlegm. She has a history of diabetes, hyperlipidemia, hypertension, and thyroid disease. White count is 14, hemoglobin 12.7, hematocrit 38.6, and platelet count 104,000. Sodium 136, potassium 4.1, chlorides 93, CO2 35, BUN 22, and creatinine 0.50. Troponins were negative 3. N-terminal proBNP was 593. Pro- calcitonin level was 0.26. Chest x-ray on October 11 shows bilateral effusions, moderate in size. Postprocedure chest x-ray shows a decrease in the left-sided pleural effusion. There was no evidence of pneumothorax. Recent analysis of the fluid removed by my partner on October 10, shows evidence of an exudate. The protein value was 3.54 g. The pathology report from that thoracentesis is currently pending. 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 Progress note dated 10/13/2022. 76-year-old female seen in room 377. Yesterday, we did a left-sided thoracentesis, and 1.6 L of fluid was removed from the left pleural space. It was not sent for analysis, as the patient has had previous thoracentesis performed, by my partners, which have been evaluated. The most recent thoracentesis, before mine, was done on October 10. Currently, the patient is on 3 L of oxygen. She's not receiving any IV fluids. We had the right side marked again by ultrasound, but the patient did not want to have thoracentesis performed today. She prefers to wait. White count 14.8, hemoglobin 11.4, hematocrit 36.2, and platelet count 104,000. Sodium 134, potassium 3.5, chlorides 90, CO2 39, BUN 23, creatinine 0.54. TSH was 11.4. Ultrasound of the right pleural space shows a pocket that is almost 12 cm in size. Flapping tissue is seen within the pocket. Progress note dated 10/14/2022. 76-year-old female seen today in room 375. The patient had a left-sided thoracentesis performed a couple days ago, and 1.6 L of fluid was removed from the left pleural space. The patient has had multiple thoracentesis in the past. Each time, the sampling was negative for malignancy. She is currently being ev aluated by hematology for a monoclonal B-cell lymphocytosis. The patient has an appointment at the [facility], later this month. Currently, she has a significant effusion on the right side again, but refuses thoracentesis. Labs today include a glucose of 133. Chest x-ray shows a large right-sided pleural effusion, and a re-developing left-sided pleural effusion. On 10/15/2021 the patient is on 3 L of oxygen by nasal cannula. The patient came into the hospital because of shortness of breath and pleural effusion. She has a left-sided thoracentesis and I removed 1.6 L of fluid last week. The patient had multiple thoracenteses in the past. She is currently being evaluated for monoclonal B-cell disease and she has an appointment at the [facility]. During this current admission, repeat thoracentesis was done on the left. She has no specific complaint otherwise for now. The most recent chest x-ray from 10/15/2022 still showing bilateral pleural effusions 10/16/2022, the patient is clinically stable. Nevertheless, she continues to have significant amount of volume overload and the patient remains on Lasix 40 mg IV every 12 hours. Most recent chest x-ray from 10/15/2022 showed a residual bilateral pleural effusions. The exact nature of this pleural effusion is not clear. As mentioned, there is a concern for malignancy in this patient although final diagnoses not been established. Previous workup including CAT scan of the abdomen and pelvis and the chest showed no evidence of any malignancy. 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 There was a tumor markers were essentially negative. The patient was initially considering to go to the [facility] for second opinion. However, she is having doubt that she will be able to make the drive to [place]. To further optimize her respiratory status, I suggested insertion of bilateral Pleurx catheters. The blood work from today shows a sodium level of 135, potassium of 3.6, BUN is 14 with a creatinine of 0.4. The most recent white cell count of 15.4 with a hemoglobin 12.2 and a platelet count of 106. Objective - Vital Signs Vital signs: Vital Signs Temp 97.8 F 10/16/22 07:53 Pulse 90 10/16/22 08:23 Resp 16 10/16/22 07:53 BP 123/73 10/16/22 07:53 Pulse Ox 95 10/16/22 08:09 FiO2 Intake & Output 10/15/22 10/16/22 10/16/22 18:59 06:59 18:59 Intake Total 110 358 Output Total 200 250 Balance 110 -200 108 Intake: Oral 110 358 Output: Urine 200 250 Other: # Voids 1 1 - Exam No acute distress, oriented 3. Currently on 3 L. No obvious respiratory distress. HEENT examination is grossly unremarkable. Neck supple. Full range of motion. No adenopathy thyromegaly or neck vein distention. Cardiovascular examination reveals regular rhythm rate. S1-S2 normal. No S3 or S4. No discernible murmur noted. Lungs reveal diminished breath sounds at both bases, right greater than left. No wheezes or rhonchi. 3 L saturation is 97%. Abdomen soft bowel sounds are heard. No masses or tenderness. Extremities are intact. No cyanosis clubbing or edema. Skin is without rash or lesion. Neurologic examination is brief but nonfocal. - Labs CBC & Chem 7: 10/15/22 07:17 10/16/22 11:12 Labs: Abnormal Lab Results - Last 24 Hours (Table) 10/15/22 10/15/22 10/15/22 Range/Units 07:17 11:26 16:29 Plt Count 106 L (150-450) k/uL Neutrophils # (Manual) 7.85 H (1.3-7.7) k/uL Monocytes # (Manual) 3.08 H (0-1.0) k/uL POC Glucose (mg/dL) 120 H 406 H (70-110) mg/dL Urine Glucose (UA) (Negative) 10/15/22 10/15/22 10/16/22 Range/Units 16:31 19:58 00:15 Plt Count (150-450) k/uL Neutrophils # (Manual) (1.3-7.7) k/uL Monocytes # (Manual) (0-1.0) k/uL POC Glucose (mg/dL) 385 H 380 H (70-110) mg/dL Urine Glucose (UA) 2+ H (Negative) Microbiology - Last 24 Hours (Table) 10/12/22 19:20 Blood Culture - Preliminary Blood 10/13/22 05:56 Urine Culture - Final Urine,Voided Enterococcus faecium Assessment and Plan Plan: Recurrent bilateral pleural effusions, of unclear etiology. The patient has had multiple thoracentesis twice on the left and the fluid cytologies been negative for malignancy. Exact nature of the pleural effusion is not clear. Based on previous thoracentesis, the fluid protein was at 3.5 g making this fluid a exudate. The fluid LDH level is low at 104. Fluid cytology is negative for malignancy. Recent right-sided thoracentesis, 10/10/2022, which was an exudate. Status post left-sided thoracentesis, 1.6 L removed, 10/12/2022, not analyzed. 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 History of hyperlipidemia. History of diabetes mellitus. History of hypothyroidism. The patient is currently maintained on Synthroid with a normal free T4 and free T3 History of hypertension. Previous history of tobacco Plan CT surgery has been involved Consider palliative bilateral proximal catheter insertion The patient still wants to have an evaluation done at [facility] prior to doing any further pulmonary interventions. She is on 3 L of oxygen nasal cannula. She is calm and comfortable. She is taking Lasix 40 mg IV every 12 hours Continue diuretics Previous echocardiogram showed a preserved LV function with moderate degree of concentric LVH We'll continue to follow Recommendations of conservative bilateral Pleurx catheter to optimize respiratory status
--- NOTE | 2022-10-16 13:41 | P.PN ---
Subjective Progress Note Date: 10/16/22 HISTORY OF PRESENT ILLNESS: The patient is a pleasant 76-year-old female patient with a past medical history significant for diabetes and hypertension and dyslipidemia as well as chronic lung disease the patient is on oxygen continuously as well as history of pleural effusion status post pleurocentesis and also history of pericardial effusion. We consulted to see the patient for congestive heart failure. The patient presented to the hospital with progressive shortness of breath and lower extremities edema started about 2 months ago and has gotten worse over the last few days. She gained about 6-7 pounds. No discomfort in the chest and no dizziness or lightheadedness and no feeling of heart racing or fluttering and no presyncope or syncope. No fever and no chills and no cough or wheezing. When she presented to the hospital she was found to be in severe bilateral lower extremity edema and she was started on Lasix IV. She never diagnosed was congestive heart failure before. She was seen by our service March 2023 where she was diagnosed with small pericardial effusion detected only on the computed tomography scan and subsequently an echo showed small pericardial effusion that has been managed medically. The patient has no history of CAD or congestive heart failure or cardiac arrhythmia. She underwent also further workup including CBC and BNP came in to be unremarkable and the chest x-ray showed bilateral pleural effusion. Beside that she underwent an EKG which showed sinus mechanism with low voltage QRS and pseudo-infarct pattern concerning for possible Amyloid. That has to be investigated as an outpatient 10/13/2022 The patient was seen and evaluated this morning. She is feeling better. The shortness of breath has improved as well as the lower extremity edema. She underwent an echo which revealed normal LV systolic function was pulmonary hypertension and dilated right ventricle. Currently the patient is on Lasix and we'll continue that. Continue monitor the kidney function and electrolytes. The patient does have an appointment to go to [facility] for further investigation. October 142022 The patient was seen and evaluated this morning. She still hypoxic on oxygen and currently she is on 5 L to maintain normal oxygen saturation. She is feeling better in terms of shortness of breath and bilateral lower extremities edema. No symptoms of any chest pain or chest discomfort at this point. The echo showed normal LV systolic function with pulmonary hypertension and dilated right ventricle. The patient currently is on Lasix IV. No blood work as of this morning. The chest x-ray from the morning showed a small left and moderate right pleural effusion. 10/15/2022 Patient examined this morning at the bedside. Patient denies chest pain or pressure. She reports mild shortness of breath. She remains on IV Lasix. Kidney function is stable today. BUN 15. Creatinine 0.51. Vital signs are stable. 10/16/2022 Patient examined this morning at the bedside. Patient denies chest pain or pressure. She states her breathing is about the same as yesterday. She remains on IV Lasix. Patient initially declined Pleurx catheter insertion or repeat thoracentesis as she wanted to go to [facility] for evaluation. However, she states she is going to be able to make her appointment next week as she c annot drive and either can her as he is dealing with sciatica and can not drive longer than 10-15 minutes PHYSICAL EXAM: VITAL SIGNS: Reviewed. GENERAL: Well-developed in no acute distress. NECK: Supple. No JVD or thyromegaly LUNGS: Respirations even and unlabored. Lungs diminished bilaterally HEART: Regular rate and rhythm. S1 and S2 heard. EXTREMITIES: Normal range of motion. No clubbing or cyanosis. Peripheral pulses intact. Bilateral lower extremity edema present ASSESSMENT: Shortness of breath Acute on chronic hypoxic respiratory failure, on oxygen at home Acute on chronic heart failure with preserved ejection fraction Recurrent pleural effusion of unknown etiology Status post recent left thoracentesis History of pericardial effusion, hypertension Hyperlipidemia Diabetes PLAN: Continue current cardiac medications Continue IV Lasix Daily weights, accurate I&O, and monitor kidney function Await further recommendations from pulmonary service and CT surgery as patient now states she is not going to be able to make her appointment to [facility] next week Further recommendations pending patient's course Nurse practitioner note has been reviewed by physician. Signing provider agrees with the documented findings, assessment, and plan of care. Objective - Vital Signs Vital signs: Vital Signs Temp 97.8 F 10/16/22 07:53 Pulse 95 10/16/22 12:00 Resp 16 10/16/22 12:00 BP 126/72 10/16/22 12:00 Pulse Ox 95 10/16/22 12:00 FiO2 Intake & Output 10/15/22 10/16/22 10/16/22 18:59 06:59 18:59 Intake Total 110 358 Output Total 200 250 Balance 110 -200 108 Intake: Oral 110 358 Output: Urine 200 250 Other: Voiding Method External Catheter # Voids 1 1 - Labs CBC & Chem 7: 10/15/22 07:17 10/16/22 11:12 Labs: Abnormal Lab Results - Last 24 Hours (Table) 10/15/22 10/15/22 10/15/22 Range/Units 16:29 16:31 19:58 Sodium (137-145) mmol/L Chloride (98-107) mmol/L Carbon Dioxide (22-30) mmol/L Creatinine (0.52-1.04) mg/dL Glucose (74-99) mg/dL POC Glucose (mg/dL) 406 H 385 H 380 H (70-110) mg/dL Calcium (8.4-10.2) mg/dL Urine Glucose (UA) (Negative) 10/16/22 10/16/22 10/16/22 Range/Units 00:15 11:12 11:38 Sodium 135 L (137-145) mmol/L Chloride 91 L (98-107) mmol/L Carbon Dioxide 38 H (22-30) mmol/L Creatinine 0.45 L (0.52-1.04) mg/dL Glucose 176 H (74-99) mg/dL POC Glucose (mg/dL) 205 H (70-110) mg/dL Calcium 7.9 L (8.4-10.2) mg/dL Urine Glucose (UA) 2+ H (Negative) Microbiology - Last 24 Hours (Table) 10/15/22 16:05 Gram Stain - Final Sputum Sputum Culture - Final 10/12/22 19:20 Blood Culture - Preliminary Blood 10/13/22 05:56 Urine Culture - Final Urine,Voided Enterococcus faecium
--- NOTE | 2022-10-16 15:09 | P.PN ---
Subjective Progress Note Date: 10/14/22 Principal diagnosis: Elevated Procalcitonin Patient is a 76-year female with a past medical history significant for diabetes mellitus hypertension hyperlipidemia history of heart failure patient did have a history of pleural effusion and history of recurrent thoracocentesis, did have a left-sided thoracocentesis completed this admission on 10/12/2022. on today's evaluation that is 10/14/2022, patient remains to be afebrile, patient is breathing comfortably on 3 L nasal cannula oxygen, the patient denies having any chest pain occasional cough and nausea vomiting abdominal pain or diarrhea Objective - Vital Signs Vital signs: Vital Signs Temp 98.1 F 10/14/22 19:19 Pulse 84 10/14/22 21:09 Resp 18 10/14/22 19:19 BP 121/74 10/14/22 19:19 Pulse Ox 97 10/14/22 19:19 FiO2 Intake & Output 10/14/22 10/14/22 10/15/22 06:59 18:59 06:59 Intake Total 220 618 10 Output Total 600 2 Balance -380 616 10 Weight 54.7 kg Intake: IV 20 20 10 Invasive Line 1 20 20 10 Oral 200 598 Output: Urine 600 2 Other: Voiding Method External Catheter External Catheter External Catheter # Voids 2 # Bowel Movements 1 - Exam GENERAL DESCRIPTION: An elderly female lying in bed in no distress RESPIRATORY SYSTEM: Unlabored breathing , decreased breath sounds at bases HEART: S1 S2 regular rate and rhythm , ABDOMEN: Soft , no tenderness EXTREMITIES: No edema feet - Labs CBC & Chem 7: 10/15/22 07:17 10/16/22 11:12 Labs: Abnormal Lab Results - Last 24 Hours (Table) 10/14/22 10/14/22 10/14/22 Range/Units 06:18 10:46 10:46 WBC 12.8 H (3.8-10.6) k/uL Plt Count 114 L (150-450) k/uL Neutrophils # 8.3 H (1.3-7.7) k/uL Monocytes # 2.1 H (0-1.0) k/uL Sodium 135 L (137-145) mmol/L Chloride 90 L (98-107) mmol/L Carbon Dioxide 37 H (22-30) mmol/L BUN 18 H (7-17) mg/dL Glucose 177 H (74-99) mg/dL POC Glucose (mg/dL) 133 H (70-110) mg/dL Calcium 7.5 L (8.4-10.2) mg/dL C-Reactive Protein 1.0 H (<1.0) mg/dL Total Protein 5.8 L (6.3-8.2) g/dL Albumin 3.1 L (3.5-5.0) g/dL 10/14/22 10/14/22 10/14/22 Range/Units 11:35 16:16 16:18 WBC (3.8-10.6) k/uL Plt Count (150-450) k/uL Neutrophils # (1.3-7.7) k/uL Monocytes # (0-1.0) k/uL Sodium (137-145) mmol/L Chloride (98-107) mmol/L Carbon Dioxide (22-30) mmol/L BUN (7-17) mg/dL Glucose (74-99) mg/dL POC Glucose (mg/dL) 179 H 405 H 354 H (70-110) mg/dL Calcium (8.4-10.2) mg/dL C-Reactive Protein (<1.0) mg/dL Total Protein (6.3-8.2) g/dL Albumin (3.5-5.0) g/dL 10/14/22 Range/Units 20:05 WBC (3.8-10.6) k/uL Plt Count (150-450) k/uL Neutrophils # (1.3-7.7) k/uL Monocytes # (0-1.0) k/uL Sodium (137-145) mmol/L Chloride (98-107) mmol/L Carbon Dioxide (22-30) mmol/L BUN (7-17) mg/dL Glucose (74-99) mg/dL POC Glucose (mg/dL) 428 H (70-110) mg/dL Calcium (8.4-10.2) mg/dL C-Reactive Protein (<1.0) mg/dL Total Protein (6.3-8.2) g/dL Albumin (3.5-5.0) g/dL Microbiology - Last 24 Hours (Table) 10/12/22 19:20 Blood Culture - Preliminary Blood Assessment and Plan (1) Elevated procalcitonin Current Visit: Yes Status: Acute Code(s): R79.89 - OTHER SPECIFIED ABNORMAL FINDINGS OF BLOOD CHEMISTRY SNOMED Code(s): 083894297 Plan: 1patient presented to hospital with increasing lower extremity edema also with increasing shortness of breath in this patient with a history of bilateral pleural effusion likely cardiac etiology patient recently did have a right-sided thoracocentesis and this admission she did have a left-sided thoracocentesis however fluid has not been sent for analysis patient not running any fever White count is mildly elevated and procalcitonin 0.26 clinically not behaving as pneumonia 2-patient did have a CRP 1.0 and repeat pro-calcitonin 0.40, try to obtain a sputum if possible Patient to continue with Rocephin while awaiting further work-up to be completed
--- NOTE | 2022-10-16 15:10 | P.PN ---
Subjective Progress Note Date: 10/15/22 Principal diagnosis: Elevated Procalcitonin Patient is a 76-year female with a past medical history significant for diabetes mellitus hypertension hyperlipidemia history of heart failure patient did have a history of pleural effusion and history of recurrent thoracocentesis, did have a left-sided thoracocentesis completed this admission on 10/12/2022. on today's evaluation that is 10/15/2022, patient continues to be afebrile, patient is breathing comfortably on 3 L nasal cannula oxygen, the patient denies having any chest pain , the patient did have occasional cough and nausea vomiting abdominal pain or diarrhea Objective - Vital Signs Vital signs: Vital Signs Temp 97.6 F 10/15/22 08:15 Pulse 84 10/15/22 12:14 Resp 16 10/15/22 11:48 BP 126/67 10/15/22 11:48 Pulse Ox 100 10/15/22 11:48 FiO2 Intake & Output 10/14/22 10/15/22 10/15/22 18:59 06:59 18:59 Intake Total 618 10 0 Output Total 2 150 Balance 616 -140 0 Intake: IV 20 10 Invasive Line 1 20 10 Oral 598 0 Output: Urine 2 150 Other: Voiding Method External Catheter External Catheter # Voids 2 # Bowel Movements 1 - Exam GENERAL DESCRIPTION: An elderly female lying in bed in no distress RESPIRATORY SYSTEM: Unlabored breathing , decreased breath sounds at bases HEART: S1 S2 regular rate and rhythm , ABDOMEN: Soft , no tenderness EXTREMITIES: No edema feet - Labs CBC & Chem 7: 10/15/22 07:17 10/16/22 11:12 Labs: Abnormal Lab Results - Last 24 Hours (Table) 10/14/22 10/14/22 10/14/22 Range/Units 10:46 16:16 16:18 WBC (3.8-10.6) k/uL Plt Count (150-450) k/uL Neutrophils # (Manual) (1.3-7.7) k/uL Monocytes # (Manual) (0-1.0) k/uL Sodium (137-145) mmol/L Chloride (98-107) mmol/L Carbon Dioxide (22-30) mmol/L Creatinine (0.52-1.04) mg/dL POC Glucose (mg/dL) 405 H 354 H (70-110) mg/dL Calcium (8.4-10.2) mg/dL Total Protein (6.3-8.2) g/dL Albumin (3.5-5.0) g/dL Procalcitonin 0.40 H (0.02-0.09) ng/mL 10/14/22 10/15/22 10/15/22 Range/Units 20:05 06:27 06:50 WBC (3.8-10.6) k/uL Plt Count (150-450) k/uL Neutrophils # (Manual) (1.3-7.7) k/uL Monocytes # (Manual) (0-1.0) k/uL Sodium (137-145) mmol/L Chloride (98-107) mmol/L Carbon Dioxide (22-30) mmol/L Creatinine (0.52-1.04) mg/dL POC Glucose (mg/dL) 428 H 59 L 53 L (70-110) mg/dL Calcium (8.4-10.2) mg/dL Total Protein (6.3-8.2) g/dL Albumin (3.5-5.0) g/dL Procalcitonin (0.02-0.09) ng/mL 10/15/22 10/15/22 10/15/22 Range/Units 07:17 07:17 11:26 WBC 15.4 H (3.8-10.6) k/uL Plt Count 106 L (150-450) k/uL Neutrophils # (Manual) 7.85 H (1.3-7.7) k/uL Monocytes # (Manual) 3.08 H (0-1.0) k/uL Sodium 136 L (137-145) mmol/L Chloride 91 L (98-107) mmol/L Carbon Dioxide 40 H (22-30) mmol/L Creatinine 0.51 L (0.52-1.04) mg/dL POC Glucose (mg/dL) 120 H (70-110) mg/dL Calcium 7.7 L (8.4-10.2) mg/dL Total Protein 5.8 L (6.3-8.2) g/dL Albumin 3.1 L (3.5-5.0) g/dL Procalcitonin (0.02-0.09) ng/mL Microbiology - Last 24 Hours (Table) 10/12/22 19:20 Blood Culture - Preliminary Blood Assessment and Plan (1) Elevated procalcitonin Current Visit: Yes Status: Acute Code(s): R79.89 - OTHER SPECIFIED ABNORMAL FINDINGS OF BLOOD CHEMISTRY SNOMED Code(s): 030209297 Plan: 1patient presented to hospital with increasing lower extremity edema also with increasing shortness of breath in this patient with a history of bilateral pleural effusion likely cardiac etiology patient recently did have a right-sided thoracocentesis and this admission she did have a left-sided thoracocentesis however fluid has not been sent for analysis patient not running any fever White count is mildly elevated and procalcitonin 0.26 clinically not behaving as pneumonia 2-patient did have a CRP 1.0 and repeat pro-calcitonin 0.40, try to obtain a sputum if possible 3Patient to continue with empiric Rocephin and monitor clinical course closely Time with Patient: Less than 30
--- NOTE | 2022-10-16 15:11 | P.PN ---
Subjective Progress Note Date: 10/16/22 Principal diagnosis: Elevated Procalcitonin Patient is a 76-year female with a past medical history significant for diabetes mellitus hypertension hyperlipidemia history of heart failure patient did have a history of pleural effusion and history of recurrent thoracocentesis, did have a left-sided thoracocentesis completed this admission on 10/12/2022. on today's evaluation that is 10/16/2022, patient denies having any fever or any chills, patient is breathing comfortably on 3 L nasal cannula oxygen, the patient denies having any chest pain , the patient did have occasional cough but no sputum reduction, the patient denies nausea vomiting abdominal pain or di arrhea Objective - Vital Signs Vital signs: Vital Signs Temp 97.8 F 10/16/22 07:53 Pulse 90 10/16/22 11:59 Resp 16 10/16/22 07:55 BP 123/73 10/16/22 07:53 Pulse Ox 95 10/16/22 08:09 FiO2 Intake & Output 10/15/22 10/16/22 10/16/22 18:59 06:59 18:59 Intake Total 110 358 Output Total 200 250 Balance 110 -200 108 Intake: Oral 110 358 Output: Urine 200 250 Other: Voiding Method External Catheter # Voids 1 1 - Exam GENERAL DESCRIPTION: An elderly female lying in bed in no distress RESPIRATORY SYSTEM: Unlabored breathing , decreased breath sounds at bases HEART: S1 S2 regular rate and rhythm , ABDOMEN: Soft , no tenderness EXTREMITIES: No edema feet - Labs CBC & Chem 7: 10/15/22 07:17 10/16/22 11:12 Labs: Abnormal Lab Results - Last 24 Hours (Table) 10/15/22 10/15/22 10/15/22 Range/Units 16:29 16:31 19:58 POC Glucose (mg/dL) 406 H 385 H 380 H (70-110) mg/dL Urine Glucose (UA) (Negative) 10/16/22 10/16/22 Range/Units 00:15 11:38 POC Glucose (mg/dL) 205 H (70-110) mg/dL Urine Glucose (UA) 2+ H (Negative) Microbiology - Last 24 Hours (Table) 10/15/22 16:05 Gram Stain - Final Sputum Sputum Culture - Final 10/12/22 19:20 Blood Culture - Preliminary Blood 10/13/22 05:56 Urine Culture - Final Urine,Voided Enterococcus faecium Assessment and Plan (1) Elevated procalcitonin Current Visit: Yes Status: Acute Code(s): R79.89 - OTHER SPECIFIED ABNORMAL FINDINGS OF BLOOD CHEMISTRY SNOMED Code(s): 854675194 (2) Bilateral pleural effusion Current Visit: Yes Status: Chronic Priority: High Code(s): J90 - PLEURAL EFFUSION, NOT ELSEWHERE CLASSIFIED SNOMED Code(s): 087874376 Plan: 1patient presented to hospital with increasing lower extremity edema also with increasing shortness of breath in this patient with a history of bilateral pleural effusion likely cardiac etiology patient recently did have a right-sided thoracocentesis and this admission she did have a left-sided thoracocentesis however fluid has not been sent for analysis patient not running any fever White count is mildly elevated and procalcitonin 0.26 clinically not behaving as pneumonia 2-patient did have a CRP 1.0 and repeat pro-calcitonin 0.40, try to obtain a sputum if possible 3Patient is currently waiting for further workup for recurrent bilateral effusion, patient to continue with empiric Rocephin while waiting for the workup to be completed Time with Patient: Less than 30
[2022-10-16] MEDS ORDERED: VANCOMYCIN IV PER PHARMACY 1 EACH MISC MISCELLANE PRN (17:18)
[2022-10-16 17:29] LABS: Glucose,Whole Blood 244 mg/dL (70-110)
[2022-10-16] MEDS ORDERED: DAPTOmycin 500 MG in SODIUM CHLORIDE 0.9% 50 ML IVPB SCH (18:00)
[2022-10-16] MEDS ORDERED: VANCOMYCIN 1,000 MG in SODIUM CHLORIDE 0.9% 250 ML IVPB ONE (18:00)
[2022-10-16 20:15] LABS: Glucose,Whole Blood 297 mg/dL (70-110)
[2022-10-16] MEDS: ATORVASTATIN 20 MG TAB PO SCH (20:29)
[2022-10-16] MEDS: INSULIN DETEMIR (LEVEMIR) 100 UNIT/ML SYR SQ SCH (20:29)
--- NOTE | 2022-10-16 22:30 | PN ---
PROGRESS NOTE SUBJECTIVE: Discussed with her treatment for pulmonary hypertension, Farxiga. She does not want to take, she took it, before she had trouble with this drug, so I have to stop that. Started on low-dose Cozaar, possibly tried Jardiance instead. OBJECTIVE: CARDIOVASCULAR: S1, S2. LUNGS: Scattered rhonchi and wheeze. HEMATOLOGY: Negative for Homans. She has drug-resistant UTI, Enterococcus for which Vancomycin is going to be ordered possible nitrofurantoin. Wait for Dr. Palomo's recommendations. Continue with diuresis for CHF. She has appointment in [facility] [place] in about a week. Once we get Infectious Disease business figured out, should be able to discharge home. MMODL / IJN: [id number] /
[2022-10-17 06:01] LABS: Glucose,Whole Blood 76 mg/dL (70-110)
[2022-10-17] MEDS: INSULIN ASPART (NovoLOG) 100 UNIT/ML VIAL SQ SCH ×4 (06:09→21:22)
[2022-10-17] MEDS: CALCIUM CARB-VIT D 500 MG-5 MCG TAB PO SCH ×2 (06:14→17:32)
[2022-10-17] MEDS: LEVOTHYROXINE 75 MCG TAB PO SCH (06:14)
[2022-10-17] MEDS: VANCOMYCIN 1,000 MG in SODIUM CHLORIDE 0.9% 250 ML IVPB SCH ×2 (06:14→17:27)
[2022-10-17 08:31] LABS: African American GFR (CKD) >90 (>60 ml/min/1.73 sqM); Blood Urea Nitrogen 13 mg/dL (7-17); Calcium 7.6 mg/dL (8.4-10.2); Chloride 92 mmol/L (98-107); Glucose 71 mg/dL (74-99); Non-African American GFR(CKD) >90 (>60 ml/min/1.73 sqM); Potassium 3.1 mmol/L (3.5-5.1); Sodium 136 mmol/L (137-145)
[2022-10-17 08:39] LABS: Anion Gap 8 mmol/L
[2022-10-17 08:40] LABS: Carbon Dioxide 36 mmol/L (22-30)
[2022-10-17] MEDS: IPRATROPIUM-ALBUTEROL 3 ML NEB INHALATION SCH ×4 (09:10→20:58)
[2022-10-17] MEDS: BUDESONIDE 0.5 MG/2 ML NEBU INHALATION SCH ×2 (09:10→20:58)
[2022-10-17] MEDS: PANTOPRAZOLE 40 MG TABLET PO SCH (09:41)
[2022-10-17] MEDS: MONTELUKAST 10 MG TAB PO SCH (09:41)
[2022-10-17] MEDS: FUROSEMIDE 10 MG/ML 4 ML VIAL IV SCH ×2 (09:41→21:22)
[2022-10-17] MEDS: FERROUS SULFATE 325 MG TAB PO SCH (09:41)
[2022-10-17] MEDS: SIMETHICONE 80 MG CHEWABLE PO SCH ×4 (09:41→21:23)
[2022-10-17] MEDS: DOCUSATE 100 MG CAP PO SCH ×2 (09:41→21:23)
[2022-10-17] MEDS: DAPAGLIFLOZIN PROPANEDIOL 5 MG TABLET PO SCH (09:41)
[2022-10-17] MEDS: LOSARTAN 25 MG TAB PO SCH (09:45)
[2022-10-17] MEDS: LORATADINE 10 MG TAB PO SCH (09:46)
[2022-10-17] MEDS: bisacodyL 10 MG SUPP RECTAL SCH (09:46)
[2022-10-17 11:32] LABS: Glucose,Whole Blood 180 mg/dL (70-110)
--- NOTE | 2022-10-17 13:35 | P.PN ---
Subjective Progress Note Date: 10/17/22 Principal diagnosis: Recurrent bilateral pleural effusions, unclear etiology, status post left and right thoracentesis, acute on chronic hypoxic respiratory failure, acute on chronic heart failure with preserved ejection fraction,. History of monoclonal B-cell lymphocytosis, hypertension, hyperlipidemia, diabetes mellitus, thyroid disorder, previous tobacco dependence The patient was seen and examined sitting up in bed on the cardiac stepdown unit in no acute distress. Denies pain, states her breathing had gotten slightly better but feels a bit worse today. Currently on 3 L nasal cannula which is her home oxygen dose. Remains in sinus rhythm. Patient previously stated she did not want to have Pleurx catheters placed here and wanted to wait for her consultation at [facility], however today she has decided that she would like to have bilateral Pleurx catheters placed and is hoping to have it done this week as she said that she is leaving Saturday to go to the [facility]. Objective - Vital Signs Vital signs: Vital Signs Temp 97.7 F 10/17/22 12:00 Pulse 87 10/17/22 12:00 Resp 18 10/17/22 12:00 BP 137/65 10/17/22 12:00 Pulse Ox 99 10/17/22 12:00 FiO2 Intake & Output 10/16/22 10/17/22 10/17/22 18:59 06:59 18:59 Intake Total 716 150 118 Output Total 800 800 Balance -84 -650 118 Intake: Oral 716 150 118 Output: Urine 800 800 Other: Voiding Method External Catheter # Voids 1 # Bowel Movements 1 - Exam CONSTITUTIONAL: Appears comfortable, cooperative, no acute distress RESPIRATORY: Lungs sounds diminished bilaterally. Respirations even, nonlabor ed. Currently on 3 L nasal cannula with oxygen saturation 99% CARDIOVASCULAR: S1, S2 present. Regular rate and rhythm, sinus rhythm on telemetry. Palpable peripheral pulses bilaterally. Bilateral lower extremity edema present. No calf pain or tenderness noted GASTROINTESTINAL: Abdomen soft, nontender, nondistended. Active bowel sounds present 4 quadrants. Tolerating diet. Positive bowel movement 10/17/22 GENITOURINARY: Continues to void clear, yellow urine. Output 1600 mL in the last 24 hours INTEGUMENTARY: Skin is warm and dry NEUROLOGIC: Cranial nerves II through XII intact MUSKULOSKELETAL: Able to move all extremities, strength equal bilaterally PSYCHIATRIC: Alert and oriented to person place and time, appropriate affect, intact judgment and insight - Allied health notes Allied health notes reviewed: nursing - Labs CBC & Chem 7: 10/15/22 07:17 10/17/22 07:36 Labs: Abnormal Lab Results - Last 24 Hours (Table) 10/16/22 10/16/22 10/17/22 Range/Units 17:27 20:11 07:36 Sodium 136 L (137-145) mmol/L Potassium 3.1 L (3.5-5.1) mmol/L Chloride 92 L (98-107) mmol/L Carbon Dioxide 36 H (22-30) mmol/L Glucose 71 L (74-99) mg/dL POC Glucose (mg/dL) 244 H 297 H (70-110) mg/dL Calcium 7.6 L (8.4-10.2) mg/dL 10/17/22 Range/Units 11:30 Sodium (137-145) mmol/L Potassium (3.5-5.1) mmol/L Chloride (98-107) mmol/L Carbon Dioxide (22-30) mmol/L Glucose (74-99) mg/dL POC Glucose (mg/dL) 180 H (70-110) mg/dL Calcium (8.4-10.2) mg/dL Microbiology - Last 24 Hours (Table) 10/15/22 16:05 Gram Stain - Final Sputum Sputum Culture - Final - Imaging and Cardiology Chest x-ray: report reviewed, image reviewed Assessment and Plan Assessment: Recurrent bilateral pleural effusions, unclear etiology, status post left thoracentesis 10/12/2022 with removal of 1.6 L of pleural fluid, right thoracentesis 10/10/22 with removal of 1.6 L pleural fluid (also right thoracentesis 09/12/22 with removal of 1.2 L fluid and left thoracentesis 09/11/22 with removal of 2L of fluid), all cytology non-diagnostic for malignancy Dyspnea, secondary to above Acute on chronic hypoxic respiratory failure, on home oxygen 3 L nasal cannula Acute on chronic heart failure with preserved ejection fraction History of monoclonal B-cell lymphocytosis History of hypertension History of hyperlipidemia History of diabetes mellitus History of thyroid disorder Previous tobacco dependence, quit at age 39 Plan: Dr. Naranjo to see the patient tomorrow to discuss Pleurx catheter placement Continue to maximize medical therapy including IV diuretics Wean O2 as tolerated. Incentive spirometry ordered and should be encouraged Increase activity as tolerated Will obtain chest x-ray in the morning Medical management with her comorbidities per internal medicine, pulmonology, cardiology, infectious disease More recommendations to follow
--- NOTE | 2022-10-17 14:15 | P.PN ---
Subjective HISTORY OF PRESENT ILLNESS: The patient is a pleasant 76-year-old female patient with a past medical history significant for diabetes and hypertension and dyslipidemia as well as chronic lung disease the patient is on oxygen continuously as well as history of pleural effusion status post pleurocentesis and also history of pericardial effusion. We consulted to see the patient for congestive heart failure. The patient p resented to the hospital with progressive shortness of breath and lower extremities edema started about 2 months ago and has gotten worse over the last few days. She gained about 6-7 pounds. No discomfort in the chest and no dizziness or lightheadedness and no feeling of heart racing or fluttering and no presyncope or syncope. No fever and no chills and no cough or wheezing. When she presented to the hospital she was found to be in severe bilateral lower extremity edema and she was started on Lasix IV. She never diagnosed was congestive heart failure before. She was seen by our service March 2023 where she was diagnosed with small pericardial effusion detected only on the computed tomography scan and subsequently an echo showed small pericardial effusion that has been managed medically. The patient has no history of CAD or congestive heart failure or cardiac arrhythmia. She underwent also further workup including CBC and BNP came in to be unremarkable and the chest x-ray lonnie wed bilateral pleural effusion. Beside that she underwent an EKG which showed sinus mechanism with low voltage QRS and pseudo-infarct pattern concerning for possible Amyloid. That has to be investigated as an outpatient 10/13/2022 The patient was seen and evaluated this morning. She is feeling better. The shortness of breath has improved as well as the lower extremity edema. She underwent an echo which revealed normal LV systolic function was pulmonary hypertension and dilated right ventricle. Currently the patient is on Lasix and we'll continue that. Continue monitor the kidney function and electrolytes. The patient does have an appointment to go to [facility] for further inv estigation. October 142022 The patient was seen and evaluated this morning. She still hypoxic on oxygen and currently she is on 5 L to maintain normal oxygen saturation. She is feeling better in terms of shortness of breath and bilateral lower extremities edema. No symptoms of any chest pain or chest discomfort at this point. The echo showed normal LV systolic function with pulmonary hypertension and dilated right ventricle. The patient currently is on Lasix IV. No blood work as of this morning. The chest x-ray from the morning showed a small left and moderate right pleural effusion. 10/15/2022 Patient examined this morning at the bedside. Patient denies chest pain or press ure. She reports mild shortness of breath. She remains on IV Lasix. Kidney function is stable today. BUN 15. Creatinine 0.51. Vital signs are stable. 10/16/2022 Patient examined this morning at the bedside. Patient denies chest pain or pressure. She states her breathing is about the same as yesterday. She remains on IV Lasix. Patient initially declined Pleurx catheter insertion or repeat thoracentesis as she wanted to go to [facility] for evaluation. However, she states she is going to be able to make her appointment next week as she cannot drive and either can her as he is dealing with sciatica and can not drive longer than 10-15 minutes 10/17/2022 Patient examined this morning. Patient denies chest pain or pressure. Patient states that she feels slightly more short of breath today and feels congested. Patient states that she has changed her mind and would like to proceed with Pleurx catheter insertion. PHYSICAL EXAM: VITAL SIGNS: Reviewed. GENERAL: Well-developed in no acute distress. NECK: Supple. No JVD or thyromegaly LUNGS: Respirations even and unlabored. Lungs diminished bilaterally HEART: Regular rate and rhythm. S1 and S2 heard. EXTREMITIES: Normal range of motion. No clubbing or cyanosis. Peripheral pulses intact. Bilateral lower extremity edema present ASSESSMENT: Shortness of breath Acute on chronic hypoxic respiratory failure, on oxygen at home Acute on chronic heart failure with preserved ejection fraction Recurrent pleural effusion of unknown etiology Status post recent left thoracentesis History of pericardial effusion, hypertension Hyperlipidemia Diabetes PLAN: Continue current cardiac medications Continue IV Lasix Patient now agreeable to Pleurx catheter insertion. Cardiothoracic surgery following No further inpatient recommendations from a cardiac standpoint. We will sign off. Please reconsult if needed. Nurse practitioner note has been reviewed by physician. Signing provider agrees with the documented findings, assessment, and plan of care. Objective - Vital Signs Vital signs: Vital Signs Temp 97.7 F 10/17/22 12:00 Pulse 87 10/17/22 12:00 Resp 18 10/17/22 12:00 BP 137/65 10/17/22 12:00 Pulse Ox 99 10/17/22 12:00 FiO2 Intake & Output 10/16/22 10/17/22 10/17/22 18:59 06:59 18:59 Intake Total 716 150 298 Output Total 800 800 800 Balance -82 -878 -316 Intake: Oral 716 150 298 Output: Urine 800 800 800 Other: Voiding Method External Catheter # Voids 1 # Bowel Movements 2 - Labs CBC & Chem 7: 10/15/22 07:17 10/17/22 07:36 Labs: Abnormal Lab Results - Last 24 Hours (Table) 10/16/22 10/16/22 10/17/22 Range/Units 17:27 20:11 07:36 Sodium 136 L (137-145) mmol/L Potassium 3.1 L (3.5-5.1) mmol/L Chloride 92 L (98-107) mmol/L Carbon Dioxide 36 H (22-30) mmol/L Glucose 71 L (74-99) mg/dL POC Glucose (mg/dL) 244 H 297 H (70-110) mg/dL Calcium 7.6 L (8.4-10.2) mg/dL 10/17/22 Range/Units 11:30 Sodium (137-145) mmol/L Potassium (3.5-5.1) mmol/L Chloride (98-107) mmol/L Carbon Dioxide (22-30) mmol/L Glucose (74-99) mg/dL POC Glucose (mg/dL) 180 H (70-110) mg/dL Calcium (8.4-10.2) mg/dL Microbiology - Last 24 Hours (Table) 10/15/22 16:05 Gram Stain - Final Sputum Sputum Culture - Final
--- NOTE | 2022-10-17 14:46 | P.PN ---
Subjective Progress Note Date: 10/17/22 76-year-old female who presented to the emergency department, for lower extremity edema, and shortness of breath. The patient has had recent thoracentesis performed by my partner, just 3 days ago, on the right side. She was marked on both sides, but she did not have a left-sided thoracentesis as yet. The patient is seen today in room 377. The Band-Aid from the recent right-sided thoracentesis is still noted. The left posterior chest still has a marking, with OpSite over it. The patient is complaining of shortness of breath, and would like a left-sided thoracentesis if possible. We did order an ultrasound of the chest, but at the time of the evaluation of the patient, it had not yet been done. The patient denies any chest pain or chest discomfort. She denies any fever or chills. She's not coughing up producing any phlegm. She has a history of diabetes, hyperlipidemia, hypertension, and thyroid disease. White count is 14, hemoglobin 12.7, hematocrit 38.6, and platelet count 104,000. Sodium 136, potassium 4.1, chlorides 93, CO2 35, BUN 22, and creatinine 0.50. Troponins were negative 3. N-terminal proBNP was 593. Pro- calcitonin level was 0.26. Chest x-ray on October 11 shows bilateral effusions, moderate in size. Postprocedure chest x-ray shows a decrease in the left-sided pleural effusion. There was no evidence of pneumothorax. Recent analysis of the fluid removed by my partner on October 10, shows evidence of an exudate. The protein value was 3.54 g. The pathology report from that thoracentesis is currently pending. 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 Progress note dated 10/13/2022. 76-year-old female seen in room 377. Yesterday, we did a left-sided thoracentesis, and 1.6 L of fluid was removed from the left pleural space. It was not sent for analysis, as the patient has had previous thoracentesis performed, by my partners, which have been evaluated. The most recent thoracentesis, before mine, was done on October 10. Currently, the patient is on 3 L of oxygen. She's not receiving any IV fluids. We had the right side marked again by ultrasound, but the patient did not want to have thoracentesis performed today. She prefers to wait. White count 14.8, hemoglobin 11.4, hematocrit 36.2, and platelet count 104,000. Sodium 134, potassium 3.5, chlorides 90, CO2 39, BUN 23, creatinine 0.54. TSH was 11.4. Ultrasound of the right pleural space shows a pocket that is almost 12 cm in size. Flapping tissue is seen within the pocket. Progress note dated 10/14/2022. 76-year-old female seen today in room 375. The patient had a left-sided thoracentesis performed a couple days ago, and 1.6 L of fluid was removed from the left pleural space. The patient has had multiple thoracentesis in the past. Each time, the sampling was negative for malignancy. She is currently being ev aluated by hematology for a monoclonal B-cell lymphocytosis. The patient has an appointment at the [facility], later this month. Currently, she has a significant effusion on the right side again, but refuses thoracentesis. Labs today include a glucose of 133. Chest x-ray shows a large right-sided pleural effusion, and a re-developing left-sided pleural effusion. On 10/15/2021 the patient is on 3 L of oxygen by nasal cannula. The patient came into the hospital because of shortness of breath and pleural effusion. She has a left-sided thoracentesis and I removed 1.6 L of fluid last week. The patient had multiple thoracenteses in the past. She is currently being evaluated for monoclonal B-cell disease and she has an appointment at the [facility]. During this current admission, repeat thoracentesis was done on the left. She has no specific complaint otherwise for now. The most recent chest x-ray from 10/15/2022 still showing bilateral pleural effusions 10/16/2022, the patient is clinically stable. Nevertheless, she continues to have significant amount of volume overload and the patient remains on Lasix 40 mg IV every 12 hours. Most recent chest x-ray from 10/15/2022 showed a residual bilateral pleural effusions. The exact nature of this pleural effusion is not clear. As mentioned, there is a concern for malignancy in this patient although final diagnoses not been established. Previous workup including CAT scan of the abdomen and pelvis and the chest showed no evidence of any malignancy. 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 There was a tumor markers were essentially negative. The patient was initially considering to go to the [facility] for second opinion. However, she is having doubt that she will be able to make the drive to [place]. To further optimize her respiratory status, I suggested insertion of bilateral Pleurx catheters. The blood work from today shows a sodium level of 135, potassium of 3.6, BUN is 14 with a creatinine of 0.4. The most recent white cell count of 15.4 with a hemoglobin 12.2 and a platelet count of 106. On 10/17/2022, no new complaints and the patient remains on 4 L of O2 nasal cannula. She is diuresing and she is in negative fluid balance of 7 34 mL over the past 24 hours, the patient remains on Lasix 40 mg IV every 12 hours. No interval worsening shortness of breath. Still has edema lower extremity bilaterally. The BUN is at 30 with a creatinine of 0.5 and a sodium level is 136. She is weak and debilitated. Overall respiratory status is stable. Objective - Vital Signs Vital signs: Vital Signs Temp 97 F L 10/17/22 08:00 Pulse 80 10/17/22 09:21 Resp 18 10/17/22 09:21 BP 110/57 10/17/22 08:00 Pulse Ox 99 10/17/22 09:11 FiO2 Intake & Output 10/16/22 10/17/22 10/17/22 18:59 06:59 18:59 Intake Total 716 150 118 Output Total 800 800 Balance -84 -650 118 Intake: Oral 716 150 118 Output: Urine 800 800 Other: Voiding Method External Catheter # Voids 1 # Bowel Movements 1 - Exam No acute distress, oriented 3. Currently on 3 L. No obvious respiratory distress. HEENT examination is grossly unremarkable. Neck supple. Full range of motion. No adenopathy thyromegaly or neck vein distention. Cardiovascular examination reveals regular rhythm rate. S1-S2 normal. No S3 or S4. No discernible murmur noted. Lungs reveal diminished breath sounds at both bases, right greater than left. No wheezes or rhonchi. 3 L saturation is 97%. Abdomen soft bowel sounds are heard. No masses or tenderness. Extremities are intact. No cyanosis clubbing or edema. Skin is without rash or lesion. Neurologic examination is brief but nonfocal. - Labs CBC & Chem 7: 10/15/22 07:17 10/17/22 07:36 Labs: Abnormal Lab Results - Last 24 Hours (Table) 10/16/22 10/16/22 10/16/22 Range/Units 11:12 17:27 20:11 Sodium 135 L (137-145) mmol/L Potassium (3.5-5.1) mmol/L Chloride 91 L (98-107) mmol/L Carbon Dioxide 38 H (22-30) mmol/L Creatinine 0.45 L (0.52-1.04) mg/dL Glucose 176 H (74-99) mg/dL POC Glucose (mg/dL) 244 H 297 H (70-110) mg/dL Calcium 7.9 L (8.4-10.2) mg/dL 10/17/22 10/17/22 Range/Units 07:36 11:30 Sodium 136 L (137-145) mmol/L Potassium 3.1 L (3.5-5.1) mmol/L Chloride 92 L (98-107) mmol/L Carbon Dioxide 36 H (22-30) mmol/L Creatinine (0.52-1.04) mg/dL Glucose 71 L (74-99) mg/dL POC Glucose (mg/dL) 180 H (70-110) mg/dL Calcium 7.6 L (8.4-10.2) mg/dL Microbiology - Last 24 Hours (Table) 10/15/22 16:05 Gram Stain - Final Sputum Sputum Culture - Final Assessment and Plan Plan: Recurrent bilateral pleural effusions, of unclear etiology. The patient has had multiple thoracentesis twice on the left and the fluid cytologies been negative for malignancy. Exact nature of the pleural effusion is not clear. Based on previous thoracentesis, the fluid protein was at 3.5 g making this fluid a exudate. The fluid LDH level is low at 104. Fluid cytology is negative for malignancy. Recent right-sided thoracentesis, 10/10/2022, which was an exudate. Status post left-sided thoracentesis, 1.6 L removed, 10/12/2022, not analyzed. 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 History of hyperlipidemia. History of diabetes mellitus. History of hypothyroidism. The patient is currently maintained on Synthroid with a normal free T4 and free T3 History of hypertension. Previous history of tobacco Plan Recommendations of the same. The patient will benefit from bilateral Pleurx catheter insertion no interval decompensation her respiratory status and the patient remains on diuretics CT surgery has been involved Consider palliative bilateral proximal catheter insertion The patient still wants to have an evaluation done at [facility] prior to doing any further pulmonary interventions. She is on 3 L of oxygen nasal cannula. She is calm and comfortable. She is taking Lasix 40 mg IV every 12 hours Continue diuretics Previous echocardiogram showed a preserved LV function with moderate degree of concentric LVH We'll continue to follow Recommendations of palliative Pleurx catheter to optimize respiratory status
--- NOTE | 2022-10-17 15:46 | P.CONS ---
History of Present Illness - Reason for Consult Consult date: 10/17/22 monoclonal b cell lymphocytosis Requesting physician: Rom Steve - Chief Complaint leg swelling - History of Present Illness Mrs. Villalpando is a pleasant female patient of Dr. Connelly referred to him for low platelet count on a routine CBC. Additional studies were ordered which were all negative. Ultrasound showed mild liver heterogeneity, normal spleen. Follow-up showed that low platelets likely related to a mild ITP or possibly early liver disease. Counts were in a safe range, she was placed on observation. She was noted to have persistent monocytosis as well. BCR/ABL testing 01/2018 was negative. CMML was also in the differential but, since counts were consistent in a safe range, she continued with observation. 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 Extensive workup was negative for any other malignancy. Cytology on pleural fluid was negative. BCR/ABL testing negative. Serum tryptase and urine histamine metabolite testing were markedly elevated, suspicious for systemic mastocytosis. Bone marrow biopsy and aspirate 07/09/22 showed 100% marrow cellularity with mild increase in B-cells, but no evidence of acute leukemia. No evidence of mastocytosis or myelofibrosis. 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 Follow-up CT 07/29 showed stable-appearing osteoblastic changes, bilateral pleural effusions. 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 Molecular testing did show genetic alterations that are characteristic of mastocytosis and myelofibrosis. Patient was referred to Dr. Jurado For second opinion regarding the diagnosis. He and Dr. Connelly did discuss the case and patient's symptoms are not felt to be related to these blood abnormalities. Tryptase immunostain on pleural fluid from 09/20/22 revealed rare benign appearing mast cells. It was discussed with patient that due to persisting symptoms she could try Gleevec or Jakafi. However, these can also cause pleural effusions, which could cause worsening of her current symptoms, and without a confirmed diagnosis of mastocytosis, as her workup has be inconclusive, the potential benefits do not out weigh the risks. Patient has upcoming appointment at [facility] next week for further evaluation/opinion. Patient presented to the ER for leg swelling over the last 1 month with associated shortness of breath. Patient was seen by her PCP who sent her to the ER for further evaluation. Chest x-ray revealed diminished lung groins with pulmonary venous congestion and basilar effusions and atelectasis. Underlying infiltrates of other etiology not excluded. Echocardiogram revealed LVH with preserved systolic function with an EF of 60-65%. Elevated RVSP. Large pleural effusion with echogenic material and thickened pericardium minimal to no effusion. Cardiology following. Patient continues on Lasix. Patient underwent right thoracentesis on 10/10 with 1.6 L removed, cytology negative for malignancy. On 10/12 left thoracentesis was performed with 1.6 L removed. Patient currently being treated with Rocephin and vancomycin. Patient afebrile, oxygen saturation 99% on 3 L. Patient reports improvement in breathing since admission. She denies flushing, n/v/d, and abdominal pain. Patient's labs are stable, hemoglobin normal at 12.2, platelets 106,000. Her WBC is elevated to 15.4, differential showing increase in absolute monocytes and neutrophils. Lymphocytes WNL but have increased since admission. Review of Systems 10 point ROS is negative except as stated in HPI Past Medical History Past Medical History: Heart Failure, COPD, Diabetes Mellitus, Hyperlipidemia, Hypertension, Thyroid Disorder Additional Past Medical History / Comment(s): left leg swells at end of day every day for about a year, bilateral lower extremity edema History of Any Multi-Drug Resistant Organisms: None Reported Past Surgical History: Cholecystectomy Additional Past Surgical History / Comment(s): cholecystectomy, cataract surgery Past Anesthesia/Blood Transfusion Reactions: No Reported Reaction Past Psychological History: No Psychological Hx Reported Smoking Status: Former smoker (Quit smoking at age 39) Past Alcohol Use History: Occasional Past Drug Use History: None Reported - Past Family History Father Family Medical History: Cancer, Prostate Disorder Additional Family Medical History / Comment(s): prostate CA Mother Additional Family Medical History / Comment(s): parkinsons Medications and Allergies Home Medications Medication Instructions Recorded Confirmed Type Simvastatin 40 mg PO HS 07/03/22 10/11/22 History Acetaminophen Tab [Tylenol] 650 mg PO Q6HR PRN tab 07/10/22 10/11/22 Rx Bumetanide [BUMEX] 1 mg PO DAILY 09/10/22 10/11/22 History Ferrous Sulfate [Iron (65 MG 325 mg PO DAILY 09/10/22 10/11/22 History Elemental)] Fluticasone/Umeclidin/Vilanter 1 puff INHALATION RT-DAILY 09/10/22 10/11/22 History [Trelegy Ellipta 200-62.5-25] Loratadine [Claritin] 10 mg PO DAILY 09/10/22 10/11/22 History Montelukast [Singulair] 10 mg PO DAILY 09/10/22 10/11/22 History Omeprazole 40 mg PO DAILY 09/10/22 10/11/22 History Ondansetron [Zofran] 4 mg PO Q6H PRN 09/10/22 10/11/22 History Ipratropium-Albuterol Nebulize 3 ml INHALATION RT-QID each 09/18/22 10/11/22 Rx [Duoneb 0.5 mg-3 mg/3 ml Soln] Calcium Carb-Vit D 500Mg-5Mcg 1 tab PO BID-W/MEALS 10/11/22 10/11/22 History [Oscal 500+D 5 Mcg (200 Iu)] Furosemide [Lasix] 40 mg PO BID 10/11/22 10/11/22 History Insulin Glargine-Yfgn [Semglee 15 unit SQ HS 10/11/22 10/11/22 History (Yfgn) Pen] Insulin Lispro 4 units SQ ACHS PRN 10/11/22 10/11/22 History Insulin Lispro See Protocol SQ ACHS PRN 10/11/22 10/11/22 History Levothyroxine Sodium [Synthroid] 150 mcg PO DAILY 10/11/22 10/11/22 History Allergies Allergy/AdvReac Type Severity Reaction Status Date / Time No Known Allergies Allergy Verified 10/11/22 16:04 Physical Exam Vitals: Vital Signs Temp Pulse Pulse Resp BP Pulse Ox 10/17/22 08:00 97 F L 86 18 110/57 99 10/17/22 04:00 97.5 F L 76 18 119/67 10/16/22 23:52 97.7 F 60 18 109/43 10/16/22 21:32 88 10/16/22 21:17 90 10/16/22 19:52 97.6 F 88 16 112/66 10/16/22 15:47 90 10/16/22 15:34 88 07/11/23 15:27 97.6 F 85 16 114/63 99 10/16/22 14:00 95 16 10/16/22 12:00 95 16 126/72 95 10/16/22 11:59 90 10/16/22 11:49 88 Intake and Output 10/16/22 10/17/22 10/17/22 22:59 06:59 14:59 Intake Total 240 150 Output Total 550 800 Balance -310 -650 Intake: Oral 240 150 Output: Urine 550 800 Other: # Voids 1 - Constitutional General appearance: average body habitus, no acute distress - EENT Eyes: anicteric sclerae, EOMI ENT: hearing grossly normal - Respiratory Respiratory: bilateral: rales (R>L) - Cardiovascular Rhythm: regular Heart sounds: normal: S1, S2 Abnormal Heart Sounds: no systolic murmur, no diastolic murmur, no rub, no S3 Gallop, no S4 Gallop, no click, no other - Gastrointestinal General gastrointestinal: soft, no tenderness - Integumentary Integumentary: no cyanotic - Neurologic grossly intact - Musculoskeletal Musculoskeletal: strength equal bilaterally - Psychiatric Psychiatric: A&O x's 3, appropriate affect, intact judgment & insight Results CBC & Chem 7: 10/15/22 07:17 10/17/22 07:36 Labs: Abnormal Lab Results - Last 24 Hours (Table) 10/16/22 10/16/22 10/16/22 Range/Units 11:12 11:38 17:27 Sodium 135 L (137-145) mmol/L Potassium (3.5-5.1) mmol/L Chloride 91 L (98-107) mmol/L Carbon Dioxide 38 H (22-30) mmol/L Creatinine 0.45 L (0.52-1.04) mg/dL Glucose 176 H (74-99) mg/dL POC Glucose (mg/dL) 205 H 244 H (70-110) mg/dL Calcium 7.9 L (8.4-10.2) mg/dL 10/16/22 10/17/22 Range/Units 20:11 07:36 Sodium 136 L (137-145) mmol/L Potassium 3.1 L (3.5-5.1) mmol/L Chloride 92 L (98-107) mmol/L Carbon Dioxide 36 H (22-30) mmol/L Creatinine (0.52-1.04) mg/dL Glucose 71 L (74-99) mg/dL POC Glucose (mg/dL) 297 H (70-110) mg/dL Calcium 7.6 L (8.4-10.2) mg/dL Microbiology - Last 24 Hours (Table) 10/15/22 16:05 Gram Stain - Final Sputum Sputum Culture - Final 10/12/22 19:20 Blood Culture - Preliminary Blood Comments: echocardiogram reviewed Chest x-ray: report reviewed Assessment and Plan (1) CHF (congestive heart failure) Current Visit: Yes Status: Acute Priority: High Code(s): I50.9 - HEART FAILURE, UNSPECIFIED SNOMED Code(s): 58555145 (2) Bilateral pleural effusion Current Visit: Yes Status: Chronic Priority: High Code(s): J90 - PLEURAL EFFUSION, NOT ELSEWHERE CLASSIFIED SNOMED Code(s): 397465477 (3) Leukocytosis Current Visit: Yes Status: Acute Priority: High Code(s): D72.829 - ELEVATED WHITE BLOOD CELL COUNT, UNSPECIFIED SNOMED Code(s): 955405023 Plan: Pleural effusions -Recurrent effusions typically associated with a malignant cause but, we do not have confirmation of the same-no solid masses, or gross hematological maligna ncy. -Thoracentesis on 10/10 and 10/12, 1.6L removed from right and left lung. Cytology of pleural fluid specimen negative for malignancy. -Spoke with patient, she is amendable to have pluerx drains placed due to recurrent effusions and need of repeat thoracenteses. Messaged pulmonology in regards to discussion with patient and eval for pleurx drain placement Leukocytosis -Patient's labs are stable, hemoglobin normal at 12.2, platelets 106,000. Her WBC is elevated at 15.4, differential showing increase in monocytes and neutrophils. Lymphocytes WNL but have increased since admission. -Patient has been extensively worked up in clinic and during previous hospitalizations for persistent leukocytosis and monocytosis. She was initially referred to Dr. Connelly for low platelet count on a routine CBC. Additional studies were ordered which were all negative. Ultrasound showed mild liver heterogenei ty, normal spleen. Follow-up showed that low platelets likely related to a mild ITP or possibly early liver disease. Counts were in a safe range, she was placed on observation. She was noted to have persistent monocytosis as well. BCR/ABL testing 01/2018 was negative. CMML was also in the differential but, since counts were consistent in a safe range, she continued with observation. 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 Extensive workup was negative for any other malignancy. Cytology on pleural fluid was negative. BCR/ABL testing again was negative. Serum tryptase and urine histamine metabolite testing were markedly elevated, suspicious for systemic mastocytosis. Bone marrow biopsy and aspirate 07/09/22 showed 100% marrow cellularity with mild increase in B-cells, but no evidence of acute leukemia and no evidence of mastocytosis or myelofibrosis. 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 Follow-up CT 07/29 showed stable-appearing osteoblastic changes, bilateral pleural effusions. 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 Molecular testing did show genetic alterations that are characteristic of mastocytosis and myelofibrosis. Patient was referred to Dr. Jurado for second opinion regarding the diagnosis. He and Dr. Connelly did discuss the case and patient's symptoms were not felt to be related to these blood abnormalities. Tryptase immunostain on pleural fluid from 09/20/22 revealed rare benign appearing mast cells. It was discussed with patient that due to persisting symptoms she could try Gleevec or Jakafi, however these can also cause pleural effusions, which could cause worsening of her current symptoms, and without a confirmed diagnosis of mastocytosis as her workup has be inconclusive, the potential benefits do not out weigh the risks. Patient has upcoming appointment at [facility] next week for further evaluation/opinion, which we strongly encouraged -Will continue to monitor counts attests: I have performed H&P and developed impression and plan of care for patient, discussed with dictator. I agree with dictated note, documented as a scribe
[2022-10-17 17:04] LABS: Glucose,Whole Blood 210 mg/dL (70-110)
[2022-10-17 20:11] LABS: Glucose,Whole Blood 348 mg/dL (70-110)
[2022-10-17] MEDS: INSULIN DETEMIR (LEVEMIR) 100 UNIT/ML SYR SQ SCH (21:22)
[2022-10-17] MEDS: ATORVASTATIN 20 MG TAB PO SCH (21:23)
[2022-10-18 06:09] LABS: Glucose,Whole Blood 40 mg/dL (70-110)
[2022-10-18] MEDS: VANCOMYCIN 1,000 MG in SODIUM CHLORIDE 0.9% 250 ML IVPB SCH ×2 (06:16→21:09)
[2022-10-18] MEDS: INSULIN ASPART (NovoLOG) 100 UNIT/ML VIAL SQ SCH ×4 (06:21→21:10)
[2022-10-18] MEDS: CALCIUM CARB-VIT D 500 MG-5 MCG TAB PO SCH ×2 (06:23→17:52)
[2022-10-18] MEDS: LEVOTHYROXINE 75 MCG TAB PO SCH (06:23)
[2022-10-18 06:48] LABS: Glucose,Whole Blood 151 mg/dL (70-110)
--- NOTE | 2022-10-18 07:23 | XR ---
EXAMINATION TYPE: XR chest 1V portable DATE OF EXAM: 10/18/2022 Comparison: 10/15/2022 Clinical History: 76-year-old female with effusions Findings: There are small to moderate left and moderate right pleural effusions which are similar to slightly i ncreased. Adjacent bilateral lower lung opacity and some increasing perihilar density. Cholecystectom y clips. Heart margins are largely obscured by the pleural parenchymal disease. Impression: Moderate to large left and moderate right pleural effusion similar to slightly increased. Adjacent at electasis and/or consolidation. There may be some developing pulmonary vascular congestion.
--- NOTE | 2022-10-18 08:26 | P.PN ---
Subjective Progress Note Date: 10/18/22 Principal diagnosis: Recurrent bilateral pleural effusions, unclear etiology, status post left and right thoracentesis, acute on chronic hypoxic respiratory failure, acute on chronic heart failure with preserved ejection fraction,. History of monoclonal B-cell lymphocytosis, hypertension, hyperlipidemia, diabetes mellitus, thyroid disorder, previous tobacco dependence The patient was seen and examined sitting up in bed on the cardiac stepdown unit in no acute distress. Denies pain, continues to have shortness of breath. Remains on 3 L nasal cannula which is her home oxygen dose. Remains in sinus rhythm. Patient is agreeable now to pleurx catheters and was seen by Dr. Naranjo this morning with plans for bilateral pleurx catheter placement tomorrow. Objective - Vital Signs Vital signs: Vital Signs Temp 97.8 F 10/17/22 20:00 Pulse 71 10/18/22 04:00 Resp 18 10/18/22 04:00 BP 121/61 10/18/22 04:00 Pulse Ox 98 10/18/22 04:00 FiO2 Intake & Output 10/17/22 10/18/22 10/18/22 18:59 06:59 18:59 Intake Total 298 Output Total 1250 1000 Balance -952 -1000 Intake: Oral 298 Output: Urine 1250 1000 Other: Voiding Method External Catheter # Bowel Movements 2 - Exam CONSTITUTIONAL: Appears comfortable, cooperative, no acute distress RESPIRATORY: Lungs sounds diminished bilaterally. Respirations even, nonlabored. Currently on 3 L nasal cannula with oxygen saturation 98% CARDIOVASCULAR: S1, S2 present. Regular rate and rhythm, sinus rhythm on telemetry. Palpable peripheral pulses bilaterally. Bilateral lower extremity edema present. No calf pain or tenderness noted GASTROINTESTINAL: Abdomen soft, nontender, nondistended. Active bowel sounds present 4 quadrants. Tolerating diet. Positive bowel movement 10/17/22 GENITOURINARY: Continues to void clear, yellow urine. Output 2250 mL in the last 24 hours INTEGUMENTARY: Skin is warm and dry NEUROLOGIC: Cranial nerves II through XII intact MUSKULOSKELETAL: Able to move all extremities, strength equal bilaterally PSYCHIATRIC: Alert and oriented to person place and time, appropriate affect, intact judgment and insight - Allied health notes Allied health notes reviewed: nursing - Labs CBC & Chem 7: 10/15/22 07:17 10/17/22 07:36 Labs: Abnormal Lab Results - Last 24 Hours (Table) 10/17/22 10/17/22 10/17/22 Range/Units 07:36 11:30 17:02 Sodium 136 L (137-145) mmol/L Potassium 3.1 L (3.5-5.1) mmol/L Chloride 92 L (98-107) mmol/L Carbon Dioxide 36 H (22-30) mmol/L Glucose 71 L (74-99) mg/dL POC Glucose (mg/dL) 180 H 210 H (70-110) mg/dL Calcium 7.6 L (8.4-10.2) mg/dL 10/17/22 10/18/22 10/18/22 Range/Units 20:09 06:03 06:46 Sodium (137-145) mmol/L Potassium (3.5-5.1) mmol/L Chloride (98-107) mmol/L Carbon Dioxide (22-30) mmol/L Glucose (74-99) mg/dL POC Glucose (mg/dL) 348 H 40 L 151 H (70-110) mg/dL Calcium (8.4-10.2) mg/dL Microbiology - Last 24 Hours (Table) 10/12/22 19:20 Blood Culture - Final Blood - Imaging and Cardiology Chest x-ray: report reviewed, image reviewed Assessment and Plan Assessment: Recurrent bilateral pleural effusions, unclear etiology, status post left thoracentesis 10/12/2022 with removal of 1.6 L of pleural fluid, right thoracentesis 10/10/22 with removal of 1.6 L pleural fluid (also right thoracentesis 09/12/22 with removal of 1.2 L fluid and left thoracentesis 09/11/22 with removal of 2L of fluid), all cytology non-diagnostic for malignancy Dyspnea, secondary to above Acute on chronic hypoxic respiratory failure, on home oxygen 3 L nasal cannula Acute on chronic heart failure with preserved ejection fraction History of monoclonal B-cell lymphocytosis History of hypertension History of hyperlipidemia History of diabetes mellitus History of thyroid disorder Previous tobacco dependence, quit at age 39 Plan: Plan is for bilateral pleurx catheter placement tomorrow, 10/19/[address] Naranjo. NPO after midnight Continue to maximize medical therapy including IV diuretics Wean O2 as tolerated. Incentive spirometry ordered and should be encouraged Increase activity as tolerated After pleurx catheter placement patient may be discharged from our standpoint when ok with other services Medical management with her comorbidities per internal medicine, pulmonology, cardiology, infectious disease More recommendations to follow
[2022-10-18 08:43] LABS: African American GFR (CKD) >90 (>60 ml/min/1.73 sqM); Blood Urea Nitrogen 13 mg/dL (7-17); Calcium 7.5 mg/dL (8.4-10.2); Chloride 96 mmol/L (98-107); Glucose 73 mg/dL (74-99); Non-African American GFR(CKD) >90 (>60 ml/min/1.73 sqM); Potassium 2.9 mmol/L (3.5-5.1); Sodium 139 mmol/L (137-145)
[2022-10-18 08:50] LABS: Anion Gap 7 mmol/L; Carbon Dioxide 36 mmol/L (22-30)
[2022-10-18] MEDS: IPRATROPIUM-ALBUTEROL 3 ML NEB INHALATION SCH ×4 (09:16→21:07)
[2022-10-18] MEDS: BUDESONIDE 0.5 MG/2 ML NEBU INHALATION SCH ×2 (09:16→21:07)
[2022-10-18] MEDS ORDERED: Potassium Replacement Protocol 1 EACH MISC MISCELLANE PRN (09:31)
[2022-10-18] MEDS: PANTOPRAZOLE 40 MG TABLET PO SCH (09:33)
[2022-10-18] MEDS: DOCUSATE 100 MG CAP PO SCH ×2 (09:33→21:09)
[2022-10-18] MEDS: LORATADINE 10 MG TAB PO SCH (09:34)
[2022-10-18] MEDS: MONTELUKAST 10 MG TAB PO SCH (09:34)
[2022-10-18] MEDS: FERROUS SULFATE 325 MG TAB PO SCH (09:34)
[2022-10-18] MEDS: FUROSEMIDE 10 MG/ML 4 ML VIAL IV SCH (09:34)
[2022-10-18] MEDS: LOSARTAN 25 MG TAB PO SCH (09:34)
[2022-10-18] MEDS: POTASSIUM CHLORIDE ER 20 MEQ TAB.ER PO SCH ×3 (09:43→12:33)
[2022-10-18] MEDS: DAPAGLIFLOZIN PROPANEDIOL 5 MG TABLET PO SCH (09:43)
[2022-10-18] MEDS: SIMETHICONE 80 MG CHEWABLE PO SCH ×4 (09:43→21:11)
--- NOTE | 2022-10-18 09:53 | PN ---
PROGRESS NOTE SUBJECTIVE: This is a 76-year-old white female with CHF, pulmonary hypertension. She feels little bit better, drug-resistant UTI, which is possibly contamination. OBJECTIVE: VITAL SIGNS: Pulse is in the 70s to 80s, blood pressure 120s/60s, and O2 96 on 3 L. CARDIOVASCULAR: S1, S2. LUNGS: Transmitted upper sounds. HEMATOLOGY: Negative for Homans. Sugars down as low as 40. Continue current treatment. Hopefully clear her for discharge in the next few days to go to [facility] for an opinion. Prognosis is guarded. Said something about getting off Watchman placed or something when she is back. She has been seen from cardiac surgery who so far bilateral PleurX catheter placements. She is agreeable to get her drained per catheterization at this point per Dr. Naranjo. PROGNOSIS: Guarded. Please see further orders. MMODL / IJN: [id number] /
[2022-10-18 10:22] LABS: ALT 16 U/L (4-34); AST 21 U/L (14-36); Alkaline Phosphatase 90 U/L (38-126); Total Bilirubin 0.2 mg/dL (0.2-1.3); Total Protein 5.7 g/dL (6.3-8.2)
[2022-10-18 10:23] LABS: HCT 38.4 % (34.0-46.0); HGB 12.4 gm/dL (11.4-16.0); Hypochromasia Slight; MCH 28.4 pg (25.0-35.0); MCHC 32.3 g/dL (31.0-37.0); MCV 87.7 fL (80.0-100.0); Mean Platelet Volume 13.1; Platelet Count 140 k/uL (150-450); RBC 4.38 m/uL (3.80-5.40); RDW 15.3 % (11.5-15.5); WBC 15.3 k/uL (3.8-10.6)
[2022-10-18 10:52] LABS: Band Neutrophils % 1 %; Eosinophils # (M) 0.15 k/uL (0-0.7); Lymphocytes # (M) 2.75 k/uL (1.0-4.8); Metamyelocytes # (M) 0.15 k/uL (0); Metamyelocytes % 1 %; Monocytes # (M) 3.21 k/uL (0-1.0); Neutrophils % (M) 60 %; Nucleated Red Blood Cells 0 /100 WBC (0-0); Total Cells Counted 200
[2022-10-18 10:56] LABS: Large Platelets Present
[2022-10-18] MEDS: bisacodyL 10 MG SUPP RECTAL SCH (11:23)
[2022-10-18 11:50] LABS: Glucose,Whole Blood 116 mg/dL (70-110)
--- NOTE | 2022-10-18 14:46 | P.PN ---
Subjective Progress Note Date: 10/18/22 76-year-old female who presented to the emergency department, for lower extremity edema, and shortness of breath. The patient has had recent thoracentesis performed by my partner, just 3 days ago, on the right side. She was marked on both sides, but she did not have a left-sided thoracentesis as yet. The patient is seen today in room 377. The Band-Aid from the recent right-sided thoracentesis is still noted. The left posterior chest still has a marking, with OpSite over it. The patient is complaining of shortness of breath, and would like a left-sided thoracentesis if possible. We did order an ultrasound of the chest, but at the time of the evaluation of the patient, it had not yet been done. The patient denies any chest pain or chest discomfort. She denies any fever or chills. She's not coughing up producing any phlegm. She has a history of diabetes, hyperlipidemia, hypertension, and thyroid disease. White count is 14, hemoglobin 12.7, hematocrit 38.6, and platelet count 104,000. Sodium 136, potassium 4.1, chlorides 93, CO2 35, BUN 22, and creatinine 0.50. Troponins were negative 3. N-terminal proBNP was 593. Pro- calcitonin level was 0.26. Chest x-ray on October 11 shows bilateral effusions, moderate in size. Postprocedure chest x-ray shows a decrease in the left-sided pleural effusion. There was no evidence of pneumothorax. Recent analysis of the fluid removed by my partner on October 10, shows evidence of an exudate. The protein value was 3.54 g. The pathology report from that thoracentesis is currently pending. 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 Progress note dated 10/13/2022. 76-year-old female seen in room 377. Yesterday, we did a left-sided thoracentesis, and 1.6 L of fluid was removed from the left pleural space. It was not sent for analysis, as the patient has had previous thoracentesis performed, by my partners, which have been evaluated. The most recent thoracentesis, before mine, was done on October 10. Currently, the patient is on 3 L of oxygen. She's not receiving any IV fluids. We had the right side marked again by ultrasound, but the patient did not want to have thoracentesis performed today. She prefers to wait. White count 14.8, hemoglobin 11.4, hematocrit 36.2, and platelet count 104,000. Sodium 134, potassium 3.5, chlorides 90, CO2 39, BUN 23, creatinine 0.54. TSH was 11.4. Ultrasound of the right pleural space shows a pocket that is almost 12 cm in size. Flapping tissue is seen within the pocket. Progress note dated 10/14/2022. 76-year-old female seen today in room 375. The patient had a left-sided thoracentesis performed a couple days ago, and 1.6 L of fluid was removed from the left pleural space. The patient has had multiple thoracentesis in the past. Each time, the sampling was negative for malignancy. She is currently being ev aluated by hematology for a monoclonal B-cell lymphocytosis. The patient has an appointment at the [facility], later this month. Currently, she has a significant effusion on the right side again, but refuses thoracentesis. Labs today include a glucose of 133. Chest x-ray shows a large right-sided pleural effusion, and a re-developing left-sided pleural effusion. On 10/15/2021 the patient is on 3 L of oxygen by nasal cannula. The patient came into the hospital because of shortness of breath and pleural effusion. She has a left-sided thoracentesis and I removed 1.6 L of fluid last week. The patient had multiple thoracenteses in the past. She is currently being evaluated for monoclonal B-cell disease and she has an appointment at the [facility]. During this current admission, repeat thoracentesis was done on the left. She has no specific complaint otherwise for now. The most recent chest x-ray from 10/15/2022 still showing bilateral pleural effusions 10/16/2022, the patient is clinically stable. Nevertheless, she continues to have significant amount of volume overload and the patient remains on Lasix 40 mg IV every 12 hours. Most recent chest x-ray from 10/15/2022 showed a residual bilateral pleural effusions. The exact nature of this pleural effusion is not clear. As mentioned, there is a concern for malignancy in this patient although final diagnoses not been established. Previous workup including CAT scan of the abdomen and pelvis and the chest showed no evidence of any malignancy. 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 There was a tumor markers were essentially negative. The patient was initially considering to go to the [facility] for second opinion. However, she is having doubt that she will be able to make the drive to [place]. To further optimize her respiratory status, I suggested insertion of bilateral Pleurx catheters. The blood work from today shows a sodium level of 135, potassium of 3.6, BUN is 14 with a creatinine of 0.4. The most recent white cell count of 15.4 with a hemoglobin 12.2 and a platelet count of 106. On 10/17/2022, no new complaints and the patient remains on 4 L of O2 nasal cannula. She is diuresing and she is in negative fluid balance of 7 34 mL over the past 24 hours, the patient remains on Lasix 40 mg IV every 12 hours. No interval worsening shortness of breath. Still has edema lower extremity bilaterally. The BUN is at 30 with a creatinine of 0.5 and a sodium level is 136. She is weak and debilitated. Overall respiratory status is stable. 10/18/2022, the patient is comfortable on 4 L of oxygen by nasal cannula. She was weaned down to 3 L and her pulse ox remained at 99 200%. There is also improvement in lower extremity edema bilaterally. The patient is feeling better and stable and the plan is to insert bilateral Pleurx catheter and this will be done tomorrow by the thoracic team. Meanwhile, the patient can be switched to oral diuretics. BUN is 30 with a creatinine of 0.4. The delivery was count of 15.3 with a hemoglobin of 12.4. Objective - Vital Signs Vital signs: Vital Signs Temp 97.8 F 10/17/22 20:00 Pulse 71 10/18/22 04:00 Resp 18 10/18/22 04:00 BP 121/61 10/18/22 04:00 Pulse Ox 95 10/18/22 09:16 FiO2 Intake & Output 10/17/22 10/18/22 10/18/22 18:59 06:59 18:59 Intake Total 298 Output Total 1250 1000 Balance -952 -1000 Intake: Oral 298 Output: Urine 1250 1000 Other: Voiding Method External Catheter # Bowel Movements 2 - Exam No acute distress, oriented 3. Currently on 3 L. No obvious respiratory distress. HEENT examination is grossly unremarkable. Neck supple. Full range of motion. No adenopathy thyromegaly or neck vein distention. Cardiovascular examination reveals regular rhythm rate. S1-S2 normal. No S3 or S4. No discernible murmur noted. Lungs reveal diminished breath sounds at both bases, right greater than left. No wheezes or rhonchi. 3 L saturation is 97%. Abdomen soft bowel sounds are heard. No masses or tenderness. Extremities are intact. No cyanosis clubbing there is improvement in lower extremity edema bilaterally Skin is without rash or lesion. Neurologic examination is brief but nonfocal. - Labs CBC & Chem 7: 10/18/22 07:32 10/18/22 07:32 Labs: Abnormal Lab Results - Last 24 Hours (Table) 10/17/22 10/17/22 10/17/22 Range/Units 11:30 17:02 20:09 WBC (3.8-10.6) k/uL Potassium (3.5-5.1) mmol/L Chloride (98-107) mmol/L Carbon Dioxide (22-30) mmol/L Creatinine (0.52-1.04) mg/dL Glucose (74-99) mg/dL POC Glucose (mg/dL) 180 H 210 H 348 H (70-110) mg/dL Calcium (8.4-10.2) mg/dL Total Protein (6.3-8.2) g/dL Albumin (3.5-5.0) g/dL 10/18/22 10/18/22 10/18/22 Range/Units 06:03 06:46 07:32 WBC (3.8-10.6) k/uL Potassium 2.9 L (3.5-5.1) mmol/L Chloride 96 L (98-107) mmol/L Carbon Dioxide 36 H (22-30) mmol/L Creatinine 0.41 L (0.52-1.04) mg/dL Glucose 73 L (74-99) mg/dL POC Glucose (mg/dL) 40 L 151 H (70-110) mg/dL Calcium 7.5 L (8.4-10.2) mg/dL Total Protein 5.7 L (6.3-8.2) g/dL Albumin 3.0 L (3.5-5.0) g/dL 10/18/22 Range/Units 07:32 WBC 15.3 H (3.8-10.6) k/uL Potassium (3.5-5.1) mmol/L Chloride (98-107) mmol/L Carbon Dioxide (22-30) mmol/L Creatinine (0.52-1.04) mg/dL Glucose (74-99) mg/dL POC Glucose (mg/dL) (70-110) mg/dL Calcium (8.4-10.2) mg/dL Total Protein (6.3-8.2) g/dL Albumin (3.5-5.0) g/dL Microbiology - Last 24 Hours (Table) 10/12/22 19:20 Blood Culture - Final Blood Assessment and Plan Plan: Recurrent bilateral pleural effusions, of unclear etiology. The patient has had multiple thoracentesis twice on the left and the fluid cytologies been negative for malignancy. Exact nature of the pleural effusion is not clear. Based on previous thoracentesis, the fluid protein was at 3.5 g making this fluid a exudate. The fluid LDH level is low at 104. Fluid cytology is negative for malignancy. Recent right-sided thoracentesis, 10/10/2022, which was an exudate. Status post left-sided thoracentesis, 1.6 L removed, 10/12/2022, not analyzed. 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 History of hyperlipidemia. History of diabetes mellitus. History of hypothyroidism. The patient is currently maintained on Synthroid with a normal free T4 and free T3 History of hypertension. Previous history of tobacco Plan Switch this patient in the oral Lasix 40 mg twice a day Pleurx catheter to be inserted tomorrow by the thoracic team The patient still wants to have an evaluation done at [facility] prior to doing any further pulmonary interventions. She is on 3 L of oxygen nasal cannula. She is calm and comfortable. S Continue diuretics Previous echocardiogram showed a preserved LV function with moderate degree of concentric LVH We'll continue to follow Recommendations of palliative Pleurx catheter to optimize respiratory status, scheduled to be done tomorrow
[2022-10-18] MEDS: FUROSEMIDE 40 MG TAB PO SCH (15:29)
[2022-10-18 16:00] LABS: Magnesium 1.6 mg/dL (1.6-2.3)
[2022-10-18 16:24] LABS: Glucose,Whole Blood 224 mg/dL (70-110)
[2022-10-18] MEDS ORDERED: VANCOMYCIN TROUGH DUE 1 EACH MISC MISCELLANE ONE (17:00)
[2022-10-18] MEDS: INSULIN DETEMIR (LEVEMIR) 100 UNIT/ML SYR SQ SCH (18:15)
[2022-10-18 20:05] LABS: Glucose,Whole Blood 321 mg/dL (70-110)
[2022-10-18] MEDS: ATORVASTATIN 20 MG TAB PO SCH (21:09)
[2022-10-19 06:14] LABS: Glucose,Whole Blood 167 mg/dL (70-110)
[2022-10-19] MEDS: LEVOTHYROXINE 75 MCG TAB PO SCH (06:27)
[2022-10-19] MEDS: VANCOMYCIN 1,000 MG in SODIUM CHLORIDE 0.9% 250 ML IVPB SCH ×2 (06:27→17:27)
[2022-10-19] MEDS: CALCIUM CARB-VIT D 500 MG-5 MCG TAB PO SCH ×2 (06:27→16:46)
[2022-10-19] MEDS: INSULIN ASPART (NovoLOG) 100 UNIT/ML VIAL SQ SCH ×4 (06:34→20:36)
[2022-10-19 07:06] LABS: African American GFR (CKD) >90 (>60 ml/min/1.73 sqM); Non-African American GFR(CKD) >90 (>60 ml/min/1.73 sqM)
--- NOTE | 2022-10-19 07:21 | P.PN ---
Subjective Progress Note Date: 10/17/22 Principal diagnosis: Elevated Procalcitonin Patient is a 76-year female with a past medical history significant for diabetes mellitus hypertension hyperlipidemia history of heart failure patient did have a history of pleural effusion and history of recurrent thoracocentesis, did have a left-sided thoracocentesis completed this admission on 10/12/2022. on today's evaluation that is 10/17/2022, the patient remains to be afebrile patient is breathing comfortably currently on 3 L nasal cannula oxygen patient denies having any chest pain no worsening cough or sputum production no abdominal pain no diarrhea and the patient did not have any urinary symptoms Objective - Vital Signs Vital signs: Vital Signs Temp 97.7 F 10/17/22 12:00 Pulse 87 10/17/22 12:00 Resp 18 10/17/22 12:00 BP 137/65 10/17/22 12:00 Pulse Ox 99 10/17/22 12:00 FiO2 Intake & Output 10/16/22 10/17/22 10/17/22 18:59 06:59 18:59 Intake Total 716 150 118 Output Total 800 800 Balance -84 -650 118 Intake: Oral 716 150 118 Output: Urine 800 800 Other: Voiding Method External Catheter # Voids 1 # Bowel Movements 1 - Exam GENERAL DESCRIPTION: An elderly female lying in bed in no distress RESPIRATORY SYSTEM: Unlabored breathing , decreased breath sounds at bases HEART: S1 S2 regular rate and rhythm , ABDOMEN: Soft , no tenderness EXTREMITIES: No edema feet - Labs CBC & Chem 7: 10/18/22 07:32 10/19/22 06:24 Labs: Abnormal Lab Results - Last 24 Hours (Table) 10/16/22 10/16/22 10/17/22 Range/Units 17:27 20:11 07:36 Sodium 136 L (137-145) mmol/L Potassium 3.1 L (3.5-5.1) mmol/L Chloride 92 L (98-107) mmol/L Carbon Dioxide 36 H (22-30) mmol/L Glucose 71 L (74-99) mg/dL POC Glucose (mg/dL) 244 H 297 H (70-110) mg/dL Calcium 7.6 L (8.4-10.2) mg/dL 10/17/22 Range/Units 11:30 Sodium (137-145) mmol/L Potassium (3.5-5.1) mmol/L Chloride (98-107) mmol/L Carbon Dioxide (22-30) mmol/L Glucose (74-99) mg/dL POC Glucose (mg/dL) 180 H (70-110) mg/dL Calcium (8.4-10.2) mg/dL Microbiology - Last 24 Hours (Table) 10/15/22 16:05 Gram Stain - Final Sputum Sputum Culture - Final Assessment and Plan (1) Elevated procalcitonin Current Visit: Yes Status: Acute Code(s): R79.89 - OTHER SPECIFIED ABNORMAL FINDINGS OF BLOOD CHEMISTRY SNOMED Code(s): 890720922 (2) Bilateral pleural effusion Current Visit: Yes Status: Chronic Priority: High Code(s): J90 - PLEURAL EFFUSION, NOT ELSEWHERE CLASSIFIED SNOMED Code(s): 456177507 Plan: 1patient presented to hospital with increasing lower extremity edema also with increasing shortness of breath in this patient with a history of bilateral ple ural effusion likely cardiac etiology patient recently did have a right-sided thoracocentesis and this admission she did have a left-sided thoracocentesis however fluid has not been sent for analysis patient not running any fever White count is mildly elevated and procalcitonin 0.26 clinically not behaving as pneumonia 2-patient did have a CRP 1.0 and repeat pro-calcitonin 0.40, try to obtain a sp utum if possible 3Patient is currently waiting for further workup for recurrent bilateral effusion, patient to continue with empiric Rocephin 4positive urine culture with VRE in this patient with the corresponding UA that was clean patient did not have any urinary symptoms likely representing con tamination or colonization and no need for any antibiotic therapy for the same Time with Patient: Less than 30
--- NOTE | 2022-10-19 07:23 | P.PN ---
Subjective Progress Note Date: 10/18/22 Principal diagnosis: Elevated Procalcitonin Patient is a 76-year female with a past medical history significant for diabetes mellitus hypertension hyperlipidemia history of heart failure patient did have a history of pleural effusion and history of recurrent thoracocentesis, did have a left-sided thoracocentesis completed this admission on 10/12/2022. on today's evaluation that is 10/18/2022 the patient denies any fever or any chills she is breathing comfortably on 3 L nasal cannula oxygen the patient denies having any chest pain occasional cough no abdominal pain no diarrhea and no urinary symptoms Objective - Vital Signs Vital signs: Vital Signs Temp 97.8 F 10/18/22 12:00 Pulse 72 10/18/22 12:09 Resp 16 10/18/22 12:09 BP 118/54 10/18/22 12:00 Pulse Ox 100 10/18/22 12:00 FiO2 Intake & Output 10/17/22 10/18/22 10/18/22 18:59 06:59 18:59 Intake Total 298 Output Total 1250 1000 Balance -952 -1000 Intake: Oral 298 Output: Urine 1250 1000 Other: Voiding Method External Catheter External Catheter # Bowel Movements 2 - Exam GENERAL DESCRIPTION: An elderly female lying in bed in no distress RESPIRATORY SYSTEM: Unlabored breathing , decreased breath sounds at bases HEART: S1 S2 regular rate and rhythm , ABDOMEN: Soft , no tenderness EXTREMITIES: No edema feet - Labs CBC & Chem 7: 10/18/22 07:32 10/19/22 06:24 Labs: Abnormal Lab Results - Last 24 Hours (Table) 10/17/22 10/17/22 10/18/22 Range/Units 17:02 20:09 06:03 WBC (3.8-10.6) k/uL Plt Count (150-450) k/uL Neutrophils # (Manual) (1.3-7.7) k/uL Monocytes # (Manual) (0-1.0) k/uL Metamyelocytes # (Man) (0) k/uL Potassium (3.5-5.1) mmol/L Chloride (98-107) mmol/L Carbon Dioxide (22-30) mmol/L Creatinine (0.52-1.04) mg/dL Glucose (74-99) mg/dL POC Glucose (mg/dL) 210 H 348 H 40 L (70-110) mg/dL Calcium (8.4-10.2) mg/dL Total Protein (6.3-8.2) g/dL Albumin (3.5-5.0) g/dL 10/18/22 10/18/22 10/18/22 Range/Units 06:46 07:32 07:32 WBC 15.3 H (3.8-10.6) k/uL Plt Count 140 L (150-450) k/uL Neutrophils # (Manual) 9.30 H (1.3-7.7) k/uL Monocytes # (Manual) 3.21 H (0-1.0) k/uL Metamyelocytes # (Man) 0.15 H (0) k/uL Potassium 2.9 L (3.5-5.1) mmol/L Chloride 96 L (98-107) mmol/L Carbon Dioxide 36 H (22-30) mmol/L Creatinine 0.41 L (0.52-1.04) mg/dL Glucose 73 L (74-99) mg/dL POC Glucose (mg/dL) 151 H (70-110) mg/dL Calcium 7.5 L (8.4-10.2) mg/dL Total Protein 5.7 L (6.3-8.2) g/dL Albumin 3.0 L (3.5-5.0) g/dL 10/18/22 Range/Units 11:49 WBC (3.8-10.6) k/uL Plt Count (150-450) k/uL Neutrophils # (Manual) (1.3-7.7) k/uL Monocytes # (Manual) (0-1.0) k/uL Metamyelocytes # (Man) (0) k/uL Potassium (3.5-5.1) mmol/L Chloride (98-107) mmol/L Carbon Dioxide (22-30) mmol/L Creatinine (0.52-1.04) mg/dL Glucose (74-99) mg/dL POC Glucose (mg/dL) 116 H (70-110) mg/dL Calcium (8.4-10.2) mg/dL Total Protein (6.3-8.2) g/dL Albumin (3.5-5.0) g/dL Microbiology - Last 24 Hours (Table) 10/16/22 00:15 Urine Culture - Final Urine,Clean Catch Enterococcus faecium 10/12/22 19:20 Blood Culture - Final Blood Assessment and Plan (1) Elevated procalcitonin Current Visit: Yes Status: Acute Code(s): R79.89 - OTHER SPECIFIED ABNORMAL FINDINGS OF BLOOD CHEMISTRY SNOMED Code(s): 364806248 (2) Bilateral pleural effusion Current Visit: Yes Status: Chronic Priority: High Code(s): J90 - PLEURAL EFFUSION, NOT ELSEWHERE CLASSIFIED SNOMED Code(s): 377187890 Plan: 1patient presented to hospital with increasing lower extremity edema also with increasing shortness of breath in this patient with a history of bilateral pleural effusion likely cardiac etiology patient recently did have a right-sided thoracocentesis and this admission she did have a left-sided thoracocentesis however fluid has not been sent for analysis patient not running any fever White count is mildly elevated and procalcitonin 0.26 clinically not behaving as pneumonia 2-patient did have a CRP 1.0 and repeat pro-calcitonin 0.40, try to obtain a sputum if possible 3positive urine culture with VRE in this patient with the corresponding UA that was clean patient did not have any urinary symptoms likely representing contamination or colonization and no need for any antibiotic therapy for the same 4-Patient with bilateral effusion scheduled for bilateral Pleurx catheter placement and fluid analysis tomorrow per CT surgery continue with empiric Rocephin and monitor clinical course closely Time with Patient: Less than 30
[2022-10-19] MEDS: BUDESONIDE 0.5 MG/2 ML NEBU INHALATION SCH ×2 (07:44→20:51)
[2022-10-19] MEDS: IPRATROPIUM-ALBUTEROL 3 ML NEB INHALATION SCH ×4 (07:44→20:51)
[2022-10-19] MEDS: FUROSEMIDE 40 MG TAB PO SCH ×2 (08:36→16:46)
[2022-10-19] MEDS: LORATADINE 10 MG TAB PO SCH (08:36)
[2022-10-19] MEDS: DOCUSATE 100 MG CAP PO SCH ×2 (08:36→20:35)
[2022-10-19] MEDS: PANTOPRAZOLE 40 MG TABLET PO SCH (08:36)
[2022-10-19] MEDS: LOSARTAN 25 MG TAB PO SCH (08:36)
[2022-10-19] MEDS: MONTELUKAST 10 MG TAB PO SCH (08:36)
[2022-10-19] MEDS: FERROUS SULFATE 325 MG TAB PO SCH (08:36)
[2022-10-19] MEDS: DAPAGLIFLOZIN PROPANEDIOL 5 MG TABLET PO SCH (08:37)
[2022-10-19] MEDS: SIMETHICONE 80 MG CHEWABLE PO SCH ×4 (08:37→20:36)
[2022-10-19] MEDS: bisacodyL 10 MG SUPP RECTAL SCH (08:40)
[2022-10-19] MEDS ORDERED: SODIUM CHLORIDE 0.9% 500 ML 500 ML IV ONE (12:06)
[2022-10-19 12:10] LABS: Glucose,Whole Blood 166 mg/dL (70-110)
[2022-10-19] MEDS ORDERED: ONDANSETRON 4 MG/2 ML VIAL ONE (12:18)
[2022-10-19] MEDS ORDERED: ONDANSETRON 4 MG/2 ML VIAL IVP ONE (12:22)
[2022-10-19] MEDS ORDERED: MIDAZOLAM 2 MG/2 ML VIAL ONE (12:47)
[2022-10-19] MEDS ORDERED: SODIUM CHLORIDE 0.9% 100 ML BAG ONE (12:47)
[2022-10-19] MEDS ORDERED: PROPOFOL 10 MG/ML 20 ML VIAL IV ONE (12:47)
[2022-10-19] MEDS ORDERED: KETAMINE 10 MG/ML 20 ML VIAL ONE (12:47)
[2022-10-19] MEDS ORDERED: ceFAZolin 1,000 MG VIAL ONE (12:47)
[2022-10-19] MEDS ORDERED: fentaNYL (PF) 50 MCG/ML 2 ML AMP ONE (12:47)
[2022-10-19] MEDS ORDERED: SODIUM CHLORIDE 0.9% 50 ML with ceFAZolin 1,000 MG IV ONE ×2 (12:52)
[2022-10-19] MEDS ORDERED: LIDOCAINE 1% INJ 10MG/ML (20 ML MDV) SQ ONE (13:03)
[2022-10-19] MEDS ORDERED: LACTATED RINGERS 1,000 ML IV ONE (13:31)
--- NOTE | 2022-10-19 13:40 | P.OP ---
Date of Procedure: 10/19/22 Preoperative Diagnosis: Bilateral recurrent pleural effusions, exudative Postoperative Diagnosis: Same Procedure(s) Performed: Bilateral Pleurx catheter placement with fluoroscopic guidance Implants: Pleurx catheter 2 Anesthesia: MAC Surgeon: Sachin Naranjo Estimated Blood Loss (ml): 3 IV fluids (ml): 200 Pathology: none sent Condition: stable Disposition: PACU Indications for Procedure: 76-year-old female who is had recurrent bilateral pleural effusions tapped. Cytology is always been negative. Protein and LDH of been high consistent with exudative effusion. There is no known etiology. Bilateral Pleurx catheter plac ement was indicated for control of pleural effusions and symptomatic relief. Operative Findings: Serous fluid was drained bilaterally. 1700 mL was drained from the right side and 1300 mL was drained from the left side for a total of 3 L drain Description of Procedure: Patient was brought to the operating room and placed supine on the table. IV sedation was administered. Bilateral lower chest and upper abdomen were sterilely prepped and draped. 1% lidocaine anesthesia was used. The right pleural space was punctured first with a 18-gauge needle and the eighth interspace laterally. Guidewire was threaded and under fluoroscopic guidance to the pleural space. Incision was enlarged to just over a centimeter and a counterincision was made in the right upper quadrant just under a centimeter. Pleurx catheter was tunneled from the abdomen to the thoracic incision. Cuff was left just under the skin at the exit site. Introducer and dilator were placed over the guidewire under fluoroscopic vision. Pleurx catheter was placed through the introducer sheath and it was removed. Placement within the pleural space was confirmed. Left pleural space was then punctured certainly with an 18-gauge needle and wire threaded into the left pleural space under fluoroscopic guidance. Incision was enlarged similarly and a counterincision was made in the left upper quadrant. Pleurx catheter was tunneled from the abdomen to chest on the left side with the cuff left just under the skin. Introducer and dilator were placed over the guidewire under fluoroscopic visualization. Pleurx catheter was threaded into the chest cavity and introducer sheath was removed. Both Pleurx catheters were drained under suction. Completion x-ray showed exce llent evacuation of fluid and good lung reexpansion. Pleurx catheters were capped. It was secured at their exit sites with 2-0 silk suture ligatures and the entry site lesions were closed with 4-0 Vicryl. Standard Pleurx dressings were applied. In glue was applied to the entry site wounds. Patient tolerated the procedure well and was transferred to recovery area.
--- NOTE | 2022-10-19 13:59 | FL ---
Fluoroscopy INDICATION: Pain FINDINGS: Fluoroscopy time: 12 seconds. Total dose area product (DAP) in uGy*m?, mGy*cm? (or similar): 0.95296 Images obtained: 5. IMPRESSIONS: 1. Documentation of fluoroscopy.
--- NOTE | 2022-10-19 14:23 | XR ---
EXAMINATION TYPE: XR chest 1V portable DATE OF EXAM: 10/19/2022 COMPARISON: 10/18/2022 INDICATION: Right pleural effusion, catheter placement TECHNIQUE: Single frontal view of the chest is obtained. FINDINGS: The heart size is normal. The pulmonary vasculature is normal. There is a small size right pleural effusion. There is elevation of the right diaphragm. Pleural eff usion has diminished following placement of the catheter on the right tip directed towards the apex. No pneumothorax is evident. IMPRESSION: 1. No pneumothorax post drainage catheter placement. Small right pleural effusion is diminished from comparison. There is elevation of the right diaphragm.
--- NOTE | 2022-10-19 14:48 | P.PN ---
Subjective Progress Note Date: 10/19/22 76-year-old female who presented to the emergency department, for lower extremity edema, and shortness of breath. The patient has had recent thoracentesis performed by my partner, just 3 days ago, on the right side. She was marked on both sides, but she did not have a left-sided thoracentesis as yet. The patient is seen today in room 377. The Band-Aid from the recent right-sided thoracentesis is still noted. The left posterior chest still has a marking, with OpSite over it. The patient is complaining of shortness of breath, and would like a left-sided thoracentesis if possible. We did order an ultrasound of the chest, but at the time of the evaluation of the patient, it had not yet been done. The patient denies any chest pain or chest discomfort. She denies any fever or chills. She's not coughing up producing any phlegm. She has a history of diabetes, hyperlipidemia, hypertension, and thyroid disease. White count is 14, hemoglobin 12.7, hematocrit 38.6, and platelet count 104,000. Sodium 136, potassium 4.1, chlorides 93, CO2 35, BUN 22, and creatinine 0.50. Troponins were negative 3. N-terminal proBNP was 593. Pro- calcitonin level was 0.26. Chest x-ray on October 11 shows bilateral effusions, moderate in size. Postprocedure chest x-ray shows a decrease in the left-sided pleural effusion. There was no evidence of pneumothorax. Recent analysis of the fluid removed by my partner on October 10, shows evidence of an exudate. The protein value was 3.54 g. The pathology report from that thoracentesis is currently pending. 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 Progress note dated 10/13/2022. 76-year-old female seen in room 377. Yesterday, we did a left-sided thoracentesis, and 1.6 L of fluid was removed from the left pleural space. It was not sent for analysis, as the patient has had previous thoracentesis performed, by my partners, which have been evaluated. The most recent thoracentesis, before mine, was done on October 10. Currently, the patient is on 3 L of oxygen. She's not receiving any IV fluids. We had the right side marked again by ultrasound, but the patient did not want to have thoracentesis performed today. She prefers to wait. White count 14.8, hemoglobin 11.4, hematocrit 36.2, and platelet count 104,000. Sodium 134, potassium 3.5, chlorides 90, CO2 39, BUN 23, creatinine 0.54. TSH was 11.4. Ultrasound of the right pleural space shows a pocket that is almost 12 cm in size. Flapping tissue is seen within the pocket. Progress note dated 10/14/2022. 76-year-old female seen today in room 375. The patient had a left-sided thoracentesis performed a couple days ago, and 1.6 L of fluid was removed from the left pleural space. The patient has had multiple thoracentesis in the past. Each time, the sampling was negative for malignancy. She is currently being ev aluated by hematology for a monoclonal B-cell lymphocytosis. The patient has an appointment at the [facility], later this month. Currently, she has a significant effusion on the right side again, but refuses thoracentesis. Labs today include a glucose of 133. Chest x-ray shows a large right-sided pleural effusion, and a re-developing left-sided pleural effusion. On 10/15/2021 the patient is on 3 L of oxygen by nasal cannula. The patient came into the hospital because of shortness of breath and pleural effusion. She has a left-sided thoracentesis and I removed 1.6 L of fluid last week. The patient had multiple thoracenteses in the past. She is currently being evaluated for monoclonal B-cell disease and she has an appointment at the [facility]. During this current admission, repeat thoracentesis was done on the left. She has no specific complaint otherwise for now. The most recent chest x-ray from 10/15/2022 still showing bilateral pleural effusions 10/16/2022, the patient is clinically stable. Nevertheless, she continues to have significant amount of volume overload and the patient remains on Lasix 40 mg IV every 12 hours. Most recent chest x-ray from 10/15/2022 showed a residual bilateral pleural effusions. The exact nature of this pleural effusion is not clear. As mentioned, there is a concern for malignancy in this patient although final diagnoses not been established. Previous workup including CAT scan of the abdomen and pelvis and the chest showed no evidence of any malignancy. 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 There was a tumor markers were essentially negative. The patient was initially considering to go to the [facility] for second opinion. However, she is having doubt that she will be able to make the drive to [place]. To further optimize her respiratory status, I suggested insertion of bilateral Pleurx catheters. The blood work from today shows a sodium level of 135, potassium of 3.6, BUN is 14 with a creatinine of 0.4. The most recent white cell count of 15.4 with a hemoglobin 12.2 and a platelet count of 106. On 10/17/2022, no new complaints and the patient remains on 4 L of O2 nasal cannula. She is diuresing and she is in negative fluid balance of 7 34 mL over the past 24 hours, the patient remains on Lasix 40 mg IV every 12 hours. No interval worsening shortness of breath. Still has edema lower extremity bilaterally. The BUN is at 30 with a creatinine of 0.5 and a sodium level is 136. She is weak and debilitated. Overall respiratory status is stable. 10/18/2022, the patient is comfortable on 4 L of oxygen by nasal cannula. She was weaned down to 3 L and her pulse ox remained at 99 200%. There is also improvement in lower extremity edema bilaterally. The patient is feeling better and stable and the plan is to insert bilateral Pleurx catheter and this will be done tomorrow by the thoracic team. Meanwhile, the patient can be switched to oral diuretics. BUN is 30 with a creatinine of 0.4. The delivery was count of 15.3 with a hemoglobin of 12.4. On 10/19/2022, no new complaints and the patient is awaiting a Pleurx catheter insertion. This will be done on both sides. Note that there is significant amount of pleural effusion still present bilaterally and the patient continues to be on 3 L of oxygen nasal cannula with a pulse ox of 97%. Labs from today shows a stable BUN and creatinine. The patient remains on Lasix 40 mg twice a day. The patient is also on IV Rocephin and vancomycin per ID. Remains on bronchodilators. Objective - Vital Signs Vital signs: Vital Signs Temp 98.2 F 10/19/22 11:40 Pulse 89 10/19/22 14:25 Resp 20 10/19/22 14:25 BP 121/58 10/19/22 14:25 Pulse Ox 97 10/19/22 14:25 FiO2 Intake & Output 10/18/22 10/19/22 10/19/22 18:59 06:59 18:59 Intake Total 380 850 Output Total 300 2752 Balance 380 -300 -1902 Weight 54.2 kg Intake: IV 850 Oral 380 Output: Urine 300 Pleural Fluid 2750 Estimated Blood Loss 2 Other: Voiding Method Toilet Toilet Toilet # Voids 1 # Bowel Movements 1 - Exam No acute distress, oriented 3. Currently on 3 L. No obvious respiratory distress. HEENT examination is grossly unremarkable. Neck supple. Full range of motion. No adenopathy thyromegaly or neck vein distention. Cardiovascular examination reveals regular rhythm rate. S1-S2 normal. No S3 or S4. No discernible murmur noted. Lungs reveal diminished breath sounds at both bases, right greater than left. No wheezes or rhonchi. 3 L saturation is 97%. Abdomen soft bowel sounds are heard. No masses or tenderness. Extremities are intact. No cyanosis clubbing there is improvement in lower extremity edema bilaterally Skin is without rash or lesion. Neurologic examination is brief but nonfocal. - Labs CBC & Chem 7: 10/18/22 07:32 10/19/22 06:24 Labs: Abnormal Lab Results - Last 24 Hours (Table) 10/18/22 10/18/22 10/19/22 Range/Units 16:23 20:04 06:12 POC Glucose (mg/dL) 224 H 321 H 167 H (70-110) mg/dL 10/19/22 Range/Units 12:09 POC Glucose (mg/dL) 166 H (70-110) mg/dL Microbiology - Last 24 Hours (Table) 10/16/22 00:15 Urine Culture - Final Urine,Clean Catch Enterococcus faecium Assessment and Plan Plan: Recurrent bilateral pleural effusions, of unclear etiology. The patient has had multiple thoracentesis twice on the left and the fluid cytologies been negative for malignancy. Exact nature of the pleural effusion is not clear. Based on previous thoracentesis, the fluid protein was at 3.5 g making this fluid a exudate. The fluid LDH level is low at 104. Fluid cytology is negative for malignancy. Recent right-sided thoracentesis, 10/10/2022, which was an exudate. Status post left-sided thoracentesis, 1.6 L removed, 10/12/2022, not analyzed. 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 History of hyperlipidemia. History of diabetes mellitus. History of hypothyroidism. The patient is currently maintained on Synthroid with a normal free T4 and free T3 History of hypertension. Previous history of tobacco Plan Proceed with bilateral breast catheter insertion today Continue oral Lasix 40 mg twice a day Pleurx catheter to be inserted today by the thoracic team The patient still wants to have an evaluation done at [facility] prior to doing any further pulmonary interventions. She is on 3 L of oxygen nasal cannula. Continue diuretics Previous echocardiogram showed a preserved LV function with moderate degree of concentric LVH We'll continue to follow
[2022-10-19 16:49] LABS: Glucose,Whole Blood 202 mg/dL (70-110)
[2022-10-19] MEDS: KETOROLAC 15 MG/ML 1 ML VIAL IVP PRN ×2 (17:29→23:32)
--- NOTE | 2022-10-19 18:08 | P.PN ---
Subjective Progress Note Date: 10/19/22 Principal diagnosis: SOB At today's visit patient is resting comfortably in bed. S/p bilateral Pleurx drains. Patient reports shortness of breath. Patient afebrile. 100% on 3 L oxygen. Objective - Vital Signs Vital signs: Vital Signs Temp 98.2 F 10/19/22 11:40 Pulse 85 10/19/22 14:40 Resp 20 10/19/22 14:40 BP 110/49 10/19/22 14:40 Pulse Ox 97 10/19/22 14:40 FiO2 Intake & Output 10/18/22 10/19/22 10/19/22 18:59 06:59 18:59 Intake Total 380 1018 Output Total 300 2752 Balance 380 -300 -1734 Weight 54.2 kg Intake: IV 900 Oral 380 118 Output: Urine 300 Pleural Fluid 2750 Estimated Blood Loss 2 Other: Voiding Method Toilet Toilet Toilet # Voids 1 2 # Bowel Movements 1 - Constitutional General appearance: Present: average body habitus, no acute distress - EENT Eyes: Present: anicteric sclerae, EOMI ENT: Present: hearing grossly normal - Respiratory Details: diminished in bases - Cardiovascular Rhythm: regular Heart sounds: normal: S1, S2 - Gastrointestinal General gastrointestinal: Present: soft. Absent: tenderness - Integumentary Integumentary: Absent: cyanotic - Neurologic Neurologic Comment(s): grossly intact - Musculoskeletal Musculoskeletal: Present: strength equal bilaterally - Psychiatric Psychiatric: Present: A&O x's 3, appropriate affect, intact judgment & insight - Labs CBC & Chem 7: 10/18/22 07:32 10/19/22 06:24 Labs: Abnormal Lab Results - Last 24 Hours (Table) 10/18/22 10/19/22 10/19/22 Range/Units 20:04 06:12 12:09 POC Glucose (mg/dL) 321 H 167 H 166 H (70-110) mg/dL 10/19/22 Range/Units 16:47 POC Glucose (mg/dL) 202 H (70-110) mg/dL Assessment and Plan (1) CHF (congestive heart failure) Current Visit: Yes Status: Acute Priority: High Code(s): I50.9 - HEART FAILURE, UNSPECIFIED SNOMED Code(s): 68353145 (2) Bilateral pleural effusion Current Visit: Yes Status: Chronic Priority: High Code(s): J90 - PLEURAL EFFUSION, NOT ELSEWHERE CLASSIFIED SNOMED Code(s): 416957944 (3) Leukocytosis Current Visit: Yes Status: Acute Priority: High Code(s): D72.829 - ELEVATED WHITE BLOOD CELL COUNT, UNSPECIFIED SNOMED Code(s): 384212548 Plan: Pleural effusions -Recurrent effusions typically associated with a malignant cause but, we do not have confirmation of the same-no solid masses, or gross hematological malignancy. -Thoracentesis on 10/10 and 10/12, 1.6L removed from right and left lung. Cytology of pleural fluid specimen negative for malignancy. -Bilateral pleurx drains placed today Leukocytosis -Patient's labs are stable, hemoglobin normal at 12.4, platelets 140,000. Her WBC is elevated at 15.3, differential showing increase in monocytes and nelda trophils. Lymphocytes WNL. -Patient has been extensively worked up in clinic and during previous hos pitalizations for persistent leukocytosis and monocytosis. She was initially referred to Dr. Connelly for low platelet count on a routine CBC. Additional studies were ordered which were all negative. Ultrasound showed mild liver heterogeneity, normal spleen. Follow-up showed that low platelets likely related to a mild ITP or possibly early liver disease. Counts were in a safe range, she was placed on observation. She was noted to have persistent monocytosis as well. BCR/ABL testing 01/2018 was negative. CMML was also in the differential but, since counts were consistent in a safe range, she continued with observation. 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 Extensive workup was negative for any other malignancy. Cytology on pleural fluid was negative. BCR/ABL testing again was negative. Serum tryptase and urine histami ne metabolite testing were markedly elevated, suspicious for systemic mastocytosis. Bone marrow biopsy and aspirate 07/09/22 showed 100% marrow cellularity with mild increase in B-cells, but no evidence of acute leukemia and no evidence of mastocytosis or myelofibrosis. 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 Follow-up CT 07/29 showed stable-appearing osteoblastic changes, bilateral pleural effusions. 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 Molecular testing did show genetic alterations that are characteristic of mastocytosis and myelofibrosis. Patient was referred to Dr. Jurado for second opinion regarding the diagnosis. He and Dr. Connelly did discuss the case and patient's symptoms were not felt to be related to these blood abnormalities. Tryptase immunostain on pleural fluid from 09/20/22 revealed rare benign appearing mast cells. It was discussed with patient that due to persisting symptoms she could try Gleevec or Jakafi, however these can also cause pleural effusions, which could cause worsening of her current symptoms, and without a confirmed diagnosis of mastocytosis as her workup has be inconclusive, the potential benefits do not out weigh the risks. Patient has upcoming appointment at [facility] next week for further evaluation/opinion, which we strongly encouraged -Will continue to monitor counts attests: I have performed H&P and developed impression and plan of care for patient, discussed with dictator. I agree with dictated note, documented as a scribe
[2022-10-19 19:50] LABS: Glucose,Whole Blood 316 mg/dL (70-110)
[2022-10-19] MEDS: ATORVASTATIN 20 MG TAB PO SCH (20:35)
[2022-10-19] MEDS: INSULIN DETEMIR (LEVEMIR) 100 UNIT/ML SYR SQ SCH (20:36)
[2022-10-19] MEDS: ACETAMINOPHEN TAB 325 MG TAB PO PRN (20:41)
--- NOTE | 2022-10-19 21:18 | PN ---
PROGRESS NOTE SUBJECTIVE: She is going to get some kind of pleurodesis, will have plug placed in bilateral lungs tomorrow prior to being discharged. Said she has a clinic appointment on Saturday. OBJECTIVE: CARDIOVASCULAR: S1, S2. LUNGS: Clear. GENERAL: She is sitting up in bed, giving appropriate answers. VITAL SIGNS: Stable, afebrile. HEMATOLOGY: Negative for Homans. ASSESSMENT: Recurrent pleural effusions, COPD, pulmonary hypertension, right-sided heart failure. Prognosis guarded. Chronic leukemia, myelogenous. Leaving [facility] for second opinion, get Pleurodesis catheter and discharge. MMODL / IJN: [id number] /
--- NOTE | 2022-10-19 22:39 | PN ---
PROGRESS NOTE SUBJECTIVE: This is a 76-year-old white female, status post PleurX drain. Shortness of breath, afebrile, 100% on 3 L. OBJECTIVE: VITAL SIGNS: Temperature 98.2, blood pressure 110/49, pulse 85, respiratory rate 20, and O2 97. CARDIOVASCULAR: S1, S2. LUNGS: Clear. GI: Soft. HEMATOLOGY: Negative for Homans. VASCULAR: Normal dorsalis pedis. White count 15.3. ASSESSMENT: CHF, leukocytosis, possible discharge home tomorrow. She wants to go to [facility] on Saturday, she will need to be discharged home tomorrow. Prognosis guarded. MMODL / IJN: [id number] /
[2022-10-20 05:46] LABS: Glucose,Whole Blood 63 mg/dL (70-110)
[2022-10-20] MEDS: INSULIN ASPART (NovoLOG) 100 UNIT/ML VIAL SQ SCH ×2 (05:46→12:46)
[2022-10-20] MEDS: CALCIUM CARB-VIT D 500 MG-5 MCG TAB PO SCH (05:52)
[2022-10-20] MEDS: LEVOTHYROXINE 75 MCG TAB PO SCH (05:52)
[2022-10-20] MEDS: VANCOMYCIN 1,000 MG in SODIUM CHLORIDE 0.9% 250 ML IVPB SCH (05:52)
[2022-10-20 06:04] LABS: Glucose,Whole Blood 55 mg/dL (70-110)
[2022-10-20 06:17] LABS: Glucose,Whole Blood 100 mg/dL (70-110)
[2022-10-20 08:22] LABS: HCT 36.4 % (34.0-46.0); Hypochromasia Slight; MCH 28.6 pg (25.0-35.0); MCHC 32.8 g/dL (31.0-37.0); MCV 87.2 fL (80.0-100.0); Mean Platelet Volume 12.5; Platelet Count 166 k/uL (150-450); RBC 4.18 m/uL (3.80-5.40); RDW 15.2 % (11.5-15.5); WBC 20.7 k/uL (3.8-10.6)
[2022-10-20 08:36] LABS: African American GFR (CKD) >90 (>60 ml/min/1.73 sqM); Anion Gap 3 mmol/L; Blood Urea Nitrogen 24 mg/dL (7-17); Calcium 7.2 mg/dL (8.4-10.2); Carbon Dioxide 37 mmol/L (22-30); Chloride 94 mmol/L (98-107); Glucose 133 mg/dL (74-99); Magnesium 1.7 mg/dL (1.6-2.3); Non-African American GFR(CKD) 84 (>60 ml/min/1.73 sqM); Potassium 4.5 mmol/L (3.5-5.1); Sodium 134 mmol/L (137-145)
[2022-10-20] MEDS: IPRATROPIUM-ALBUTEROL 3 ML NEB INHALATION SCH ×2 (08:55→11:48)
[2022-10-20] MEDS: BUDESONIDE 0.5 MG/2 ML NEBU INHALATION SCH (08:55)
[2022-10-20 08:57] VITALS: RESP 19
[2022-10-20] MEDS: FERROUS SULFATE 325 MG TAB PO SCH (08:59)
[2022-10-20] MEDS: PANTOPRAZOLE 40 MG TABLET PO SCH (08:59)
[2022-10-20] MEDS: DAPAGLIFLOZIN PROPANEDIOL 5 MG TABLET PO SCH (08:59)
[2022-10-20] MEDS: LORATADINE 10 MG TAB PO SCH (08:59)
[2022-10-20] MEDS: LOSARTAN 25 MG TAB PO SCH (08:59)
[2022-10-20] MEDS: DOCUSATE 100 MG CAP PO SCH (08:59)
[2022-10-20] MEDS: MONTELUKAST 10 MG TAB PO SCH (08:59)
[2022-10-20] MEDS: FUROSEMIDE 40 MG TAB PO SCH (08:59)
[2022-10-20] MEDS: KETOROLAC 15 MG/ML 1 ML VIAL IVP PRN (09:00)
[2022-10-20] MEDS: SIMETHICONE 80 MG CHEWABLE PO SCH ×2 (09:00→12:40)
[2022-10-20] MEDS: bisacodyL 10 MG SUPP RECTAL SCH (09:06)
[2022-10-20 09:59] LABS: Lymphocytes # (M) 4.14 k/uL (1.0-4.8); Monocytes # (M) 6.83 k/uL (0-1.0); Neutrophils # (M) 9.73 k/uL (1.3-7.7); Neutrophils % (M) 47 %; Nucleated Red Blood Cells 0 /100 WBC (0-0); Total Cells Counted 100
[2022-10-20 11:31] LABS: Glucose,Whole Blood 196 mg/dL (70-110)
--- NOTE | 2022-10-20 12:15 | P.PN ---
Subjective Progress Note Date: 10/20/22 76-year-old female who presented to the emergency department, for lower extremity edema, and shortness of breath. The patient has had recent thoracentesis performed by my partner, just 3 days ago, on the right side. She was marked on both sides, but she did not have a left-sided thoracentesis as yet. The patient is seen today in room 377. The Band-Aid from the recent right-sided thoracentesis is still noted. The left posterior chest still has a marking, with OpSite over it. The patient is complaining of shortness of breath, and would like a left-sided thoracentesis if possible. We did order an ultrasound of the chest, but at the time of the evaluation of the patient, it had not yet been done. The patient denies any chest pain or chest discomfort. She denies any fever or chills. She's not coughing up producing any phlegm. She has a history of diabetes, hyperlipidemia, hypertension, and thyroid disease. White count is 14, hemoglobin 12.7, hematocrit 38.6, and platelet count 104,000. Sodium 136, potassium 4.1, chlorides 93, CO2 35, BUN 22, and creatinine 0.50. Troponins were negative 3. N-terminal proBNP was 593. Pro- calcitonin level was 0.26. Chest x-ray on October 11 shows bilateral effusions, moderate in size. Postprocedure chest x-ray shows a decrease in the left-sided pleural effusion. There was no evidence of pneumothorax. Recent analysis of the fluid removed by my partner on October 10, shows evidence of an exudate. The protein value was 3.54 g. The pathology report from that thoracentesis is currently pending. 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 Progress note dated 10/13/2022. 76-year-old female seen in room 377. Yesterday, we did a left-sided thoracentesis, and 1.6 L of fluid was removed from the left pleural space. It was not sent for analysis, as the patient has had previous thoracentesis performed, by my partners, which have been evaluated. The most recent thoracentesis, before mine, was done on October 10. Currently, the patient is on 3 L of oxygen. She's not receiving any IV fluids. We had the right side marked again by ultrasound, but the patient did not want to have thoracentesis performed today. She prefers to wait. White count 14.8, hemoglobin 11.4, hematocrit 36.2, and platelet count 104,000. Sodium 134, potassium 3.5, chlorides 90, CO2 39, BUN 23, creatinine 0.54. TSH was 11.4. Ultrasound of the right pleural space shows a pocket that is almost 12 cm in size. Flapping tissue is seen within the pocket. Progress note dated 10/14/2022. 76-year-old female seen today in room 375. The patient had a left-sided thoracentesis performed a couple days ago, and 1.6 L of fluid was removed from the left pleural space. The patient has had multiple thoracentesis in the past. Each time, the sampling was negative for malignancy. She is currently being ev aluated by hematology for a monoclonal B-cell lymphocytosis. The patient has an appointment at the [facility], later this month. Currently, she has a significant effusion on the right side again, but refuses thoracentesis. Labs today include a glucose of 133. Chest x-ray shows a large right-sided pleural effusion, and a re-developing left-sided pleural effusion. On 10/15/2021 the patient is on 3 L of oxygen by nasal cannula. The patient came into the hospital because of shortness of breath and pleural effusion. She has a left-sided thoracentesis and I removed 1.6 L of fluid last week. The patient had multiple thoracenteses in the past. She is currently being evaluated for monoclonal B-cell disease and she has an appointment at the [facility]. During this current admission, repeat thoracentesis was done on the left. She has no specific complaint otherwise for now. The most recent chest x-ray from 10/15/2022 still showing bilateral pleural effusions 10/16/2022, the patient is clinically stable. Nevertheless, she continues to have significant amount of volume overload and the patient remains on Lasix 40 mg IV every 12 hours. Most recent chest x-ray from 10/15/2022 showed a residual bilateral pleural effusions. The exact nature of this pleural effusion is not clear. As mentioned, there is a concern for malignancy in this patient although final diagnoses not been established. Previous workup including CAT scan of the abdomen and pelvis and the chest showed no evidence of any malignancy. 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 There was a tumor markers were essentially negative. The patient was initially considering to go to the [facility] for second opinion. However, she is having doubt that she will be able to make the drive to [place]. To further optimize her respiratory status, I suggested insertion of bilateral Pleurx catheters. The blood work from today shows a sodium level of 135, potassium of 3.6, BUN is 14 with a creatinine of 0.4. The most recent white cell count of 15.4 with a hemoglobin 12.2 and a platelet count of 106. On 10/17/2022, no new complaints and the patient remains on 4 L of O2 nasal cannula. She is diuresing and she is in negative fluid balance of 7 34 mL over the past 24 hours, the patient remains on Lasix 40 mg IV every 12 hours. No interval worsening shortness of breath. Still has edema lower extremity bilaterally. The BUN is at 30 with a creatinine of 0.5 and a sodium level is 136. She is weak and debilitated. Overall respiratory status is stable. 10/18/2022, the patient is comfortable on 4 L of oxygen by nasal cannula. She was weaned down to 3 L and her pulse ox remained at 99 200%. There is also improvement in lower extremity edema bilaterally. The patient is feeling better and stable and the plan is to insert bilateral Pleurx catheter and this will be done tomorrow by the thoracic team. Meanwhile, the patient can be switched to oral diuretics. BUN is 30 with a creatinine of 0.4. The delivery was count of 15.3 with a hemoglobin of 12.4. On 10/19/2022, no new complaints and the patient is awaiting a Pleurx catheter insertion. This will be done on both sides. Note that there is significant amount of pleural effusion still present bilaterally and the patient continues to be on 3 L of oxygen nasal cannula with a pulse ox of 97%. Labs from today shows a stable BUN and creatinine. The patient remains on Lasix 40 mg twice a day. The patient is also on IV Rocephin and vancomycin per ID. Remains on bronchodilators. 10/20/2022, the patient had insertion of bilateral Pleurx catheter. She remains on Lasix 40 mg by mouth twice a day. Post catheter insertion, the patient remains a total of 3 L from both lungs, 1700 from the right and 1500 from the left. The chest x-ray was done along the procedure showed significant reexpansion of the lungs bilaterally. No complications. BUN is at 24 with a creatinine of 0.6. Sodium level is at 134. White cell count at 20.7 with a hemoglobin of 12. Objective - Vital Signs Vital signs: Vital Signs Temp 97.6 F 10/20/22 08:10 Pulse 78 10/20/22 08:10 Resp 19 10/20/22 08:10 BP 103/68 10/20/22 08:10 Pulse Ox 98 10/20/22 08:10 FiO2 Intake & Output 10/19/22 10/20/22 10/20/22 18:59 06:59 18:59 Intake Total 1018 360 Output Total 2752 500 Balance -1734 -500 360 Weight 53.4 kg Intake: IV 900 Oral 118 360 Output: Urine 500 Pleural Fluid 2750 Estimated Blood Loss 2 Other: Voiding Method Toilet Toilet # Voids 2 # Bowel Movements 1 - Exam No acute distress, oriented 3. Currently on 3 L. No obvious respiratory distress. HEENT examination is grossly unremarkable. Neck supple. Full range of motion. No adenopathy thyromegaly or neck vein distention. Cardiovascular examination reveals regular rhythm rate. S1-S2 normal. No S3 or S4. No discernible murmur noted. Lungs reveal diminished breath sounds and the area and hasn't followed bila terally as the patient has bilateral Pleurx catheters. Abdomen soft bowel sounds are heard. No masses or tenderness. Extremities are intact. No cyanosis clubbing there is improvement in lower extr emity edema bilaterally Skin is without rash or lesion. Neurologic examination is brief but nonfocal. - Labs CBC & Chem 7: 10/20/22 07:43 10/20/22 07:43 Labs: Abnormal Lab Results - Last 24 Hours (Table) 10/19/22 10/19/22 10/19/22 Range/Units 12:09 16:47 19:49 WBC (3.8-10.6) k/uL Neutrophils # (Manual) (1.3-7.7) k/uL Monocytes # (Manual) (0-1.0) k/uL Sodium (137-145) mmol/L Chloride (98-107) mmol/L Carbon Dioxide (22-30) mmol/L BUN (7-17) mg/dL Glucose (74-99) mg/dL POC Glucose (mg/dL) 166 H 202 H 316 H (70-110) mg/dL Calcium (8.4-10.2) mg/dL 10/20/22 10/20/22 10/20/22 Range/Units 05:45 06:02 07:43 WBC (3.8-10.6) k/uL Neutrophils # (Manual) (1.3-7.7) k/uL Monocytes # (Manual) (0-1.0) k/uL Sodium 134 L (137-145) mmol/L Chloride 94 L (98-107) mmol/L Carbon Dioxide 37 H (22-30) mmol/L BUN 24 H (7-17) mg/dL Glucose 133 H (74-99) mg/dL POC Glucose (mg/dL) 63 L 55 L (70-110) mg/dL Calcium 7.2 L (8.4-10.2) mg/dL 10/20/22 Range/Units 07:43 WBC 20.7 H (3.8-10.6) k/uL Neutrophils # (Manual) 9.73 H (1.3-7.7) k/uL Monocytes # (Manual) 6.83 H (0-1.0) k/uL Sodium (137-145) mmol/L Chloride (98-107) mmol/L Carbon Dioxide (22-30) mmol/L BUN (7-17) mg/dL Glucose (74-99) mg/dL POC Glucose (mg/dL) (70-110) mg/dL Calcium (8.4-10.2) mg/dL Assessment and Plan Plan: Recurrent bilateral pleural effusions, of unclear etiology. The patient has had multiple thoracentesis twice on the left and the fluid cytologies been negative for malignancy. Exact nature of the pleural effusion is not clear. Based on previous thoracentesis, the fluid protein was at 3.5 g making this fluid a exudate. The fluid LDH level is low at 104. Fluid cytology is negative for malignancy. The patient underwent bilateral Pleurx catheter insertion with evacuation of 1.7 L on the right and 1.3 L from the left Recent right-sided thoracentesis, 10/10/2022, which was an exudate. Status post left-sided thoracentesis, 1.6 L removed, 10/12/2022, not analyzed. 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 History of hyperlipidemia. History of diabetes mellitus. History of hypothyroidism. The patient is currently maintained on Synthroid with a normal free T4 and free T3 History of hypertension. Previous history of tobacco Plan education on the use of Pleurx catheter Continue oral Lasix 40 mg twice a day continue Lasix The patient still wants to have an evaluation done at [facility] prior to doing any further pulmonary interventions. She is on 3 L of oxygen nasal cannula. Continue diuretics Previous echocardiogram showed a preserved LV function with moderate degree of concentric LVH We'll continue to follow
--- NOTE | 2022-10-20 13:50 | P.PN ---
Subjective Progress Note Date: 10/20/22 Patient is a 76-year female with a past medical history significant for diabetes mellitus hypertension hyperlipidemia history of heart failure patient did have a history of pleural effusion and history of recurrent thoracocentesis, did have a left-sided thoracocentesis completed this admission on 10/12/2022. 10/20. Dr. Jayro dukes for Dr. Barron Patient seen and examined. Patient stated that Dr. Barron has discharged her, she is intending to follow up outpatient with [facility] REVIEW OF SYSTEMS: CONSTITUTIONAL: No fever, no malaise,. CARDIOVASCULAR: No chest pain, no palpitations, no syncope. PULMONARY: No shortness of breath, no cough, GASTROINTESTINAL: No diarrhea, no nausea, no vomiting, no abdominal pain. NEUROLOGICAL: No headaches, no weakness, PHYSICAL EXAMINATION: GENERAL: The patient is alert and oriented x3, not in any acute distress. Well developed, well nourished. HEENT: Pupils are round and equally reacting to light. EOMI. No scleral icterus. No conjunctival pallor. Normocephalic, atraumatic. No pharyngeal erythema. No th yromegaly. CARDIOVASCULAR: S1 and S2 present. No murmurs, rubs, or gallops. PULMONARY: Diminished breath sounds at the bases bilaterally, bilateral pleural catheter ABDOMEN: Soft, nontender, nondistended, normoactive bowel sounds. No palpable organomegaly. MUSCULOSKELETAL: No joint swelling or deformity. EXTREMITIES: No cyanosis, clubbing, or pedal edema. NEUROLOGICAL: Gross neurological examination did not reveal any focal deficits. SKIN: No rashes. Assessment and plan Recurrent bilateral pleural effusions, of unclear etiology. Recent right-sided thoracentesis, 10/10/2022, which was an exudate. Status post left-sided thoracentesis, 1.6 L removed, 10/12/2022, not analyzed. 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 History of hyperlipidemia. History of diabetes mellitus. History of hypothyroidism. The patient is currently maintained on Synthroid with a normal free T4 and free T3 History of hypertension. Previous history of tobacco Monitor vital signs Monitor CBC Monitor CMP Continue telemetry monitoring Strict I's and O's, daily weights Bilateral Pleurx catheter placement Continue IV Rocephin and vancomycin continue oral Lasix CT surgery following ID following Pulmonary following Discharge per Dr. Barron Labs and medication were reviewed.. Continue same treatment. Continue with symptomatic treatment. Resume home medication. Monitor labs and vitals. DVT and GI prophylaxis. Further recommendations as per clinical course of the patient Objective - Vital Signs Vital signs: Vital Signs Temp 97.6 F 10/20/22 08:10 Pulse 78 10/20/22 08:10 Resp 19 10/20/22 08:10 BP 103/68 10/20/22 08:10 Pulse Ox 98 10/20/22 08:10 FiO2 Intake & Output 10/19/22 10/20/22 10/20/22 18:59 06:59 18:59 Intake Total 1018 360 Output Total 2752 500 Balance -1734 -500 360 Weight 53.4 kg Intake: IV 900 Oral 118 360 Output: Urine 500 Pleural Fluid 2750 Estimated Blood Loss 2 Other: Voiding Method Toilet Toilet # Voids 2 # Bowel Movements 1 - Labs CBC & Chem 7: 10/20/22 07:43 10/20/22 07:43 Labs: Abnormal Lab Results - Last 24 Hours (Table) 10/19/22 10/19/22 10/19/22 Range/Units 12:09 16:47 19:49 WBC (3.8-10.6) k/uL Neutrophils # (Manual) (1.3-7.7) k/uL Monocytes # (Manual) (0-1.0) k/uL Sodium (137-145) mmol/L Chloride (98-107) mmol/L Carbon Dioxide (22-30) mmol/L BUN (7-17) mg/dL Glucose (74-99) mg/dL POC Glucose (mg/dL) 166 H 202 H 316 H (70-110) mg/dL Calcium (8.4-10.2) mg/dL 10/20/22 10/20/22 10/20/22 Range/Units 05:45 06:02 07:43 WBC (3.8-10.6) k/uL Neutrophils # (Manual) (1.3-7.7) k/uL Monocytes # (Manual) (0-1.0) k/uL Sodium 134 L (137-145) mmol/L Chloride 94 L (98-107) mmol/L Carbon Dioxide 37 H (22-30) mmol/L BUN 24 H (7-17) mg/dL Glucose 133 H (74-99) mg/dL POC Glucose (mg/dL) 63 L 55 L (70-110) mg/dL Calcium 7.2 L (8.4-10.2) mg/dL 10/20/22 Range/Units 07:43 WBC 20.7 H (3.8-10.6) k/uL Neutrophils # (Manual) 9.73 H (1.3-7.7) k/uL Monocytes # (Manual) 6.83 H (0-1.0) k/uL Sodium (137-145) mmol/L Chloride (98-107) mmol/L Carbon Dioxide (22-30) mmol/L BUN (7-17) mg/dL Glucose (74-99) mg/dL POC Glucose (mg/dL) (70-110) mg/dL Calcium (8.4-10.2) mg/dL
[2022-10-20 14:56] VITALS: BP 111/54; PULSE 84; TEMP 98
[2022-10-21] MEDS ORDERED: VANCOMYCIN TROUGH DUE 1 EACH MISC MISCELLANE ONE (05:00)
== END 2022-10-20 14:44 | disposition home health service (06) | DRG 291 ==
LOC: EC 12:57 → 3SCARD 16:16 → UNDODISIN 10-18 10:51
PROVIDERS: ADMIT Family Medicine; ATTEND Family Medicine
PROC: 0W9B3ZZ Drainage of Left Pleural Cavity, Percutaneous Approach (ICD-10-PCS; principal; 2022-10-12)
PROC: 0W9B30Z Drainage of Left Pleural Cavity with Drainage Device, Percutaneous Approach (ICD-10-PCS; 2022-10-19)
PROC: 0W9930Z Drainage of Right Pleural Cavity with Drainage Device, Percutaneous Approach (ICD-10-PCS; 2022-10-19)
DX: I11.0 Hypertensive heart disease with heart failure (principal); I50.33 Acute on chronic diastolic (congestive) heart failure; J96.21 Acute and chronic respiratory failure with hypoxia; I31.39 Other pericardial effusion (noninflammatory); C79.51 Secondary malignant neoplasm of bone; C93.10 Chronic myelomonocytic leukemia not having achieved remission; D69.3 Immune thrombocytopenic purpura; J90 Pleural effusion, not elsewhere classified; J98.11 Atelectasis; N39.0 Urinary tract infection, site not specified; Z16.24 Resistance to multiple antibiotics; B95.2 Enterococcus as the cause of diseases classified elsewhere; I27.29 Other secondary pulmonary hypertension; J44.9 Chronic obstructive pulmonary disease, unspecified; E11.9 Type 2 diabetes mellitus without complications; Z79.4 Long term (current) use of insulin; E03.9 Hypothyroidism, unspecified; E78.5 Hyperlipidemia, unspecified; K59.00 Constipation, unspecified; Z99.81 Dependence on supplemental oxygen; Z79.51 Long term (current) use of inhaled steroids; Z79.890 Hormone replacement therapy; Z79.899 Other long term (current) drug therapy; Z87.891 Personal history of nicotine dependence; Z86.16 Personal history of COVID-19
CPT/HCPCS: 36415; 71045; 71046; 76604; 80048; 80053; 80202; 81003; 82565; 83605; 83735; 83880; 84132; 84145; 84439; 84443; 84481; 84484; 85025; 86140; 87040; 87070; 87077; 87086; 87186; 87205; 93005; 93306; 94640; 94760; 96374; 99285

== ENCOUNTER 2022-11-04 17:33 | Emergency (ER) | payer MEDICARE, OTHER ==
--- NOTE | 2022-11-04 18:18 | ED ---
SOB HPI - General Chief Complaint: Shortness of Breath Stated Complaint: Port drain Time Seen by Provider: 11/04/22 18:03 Source: patient Mode of arrival: wheelchair Limitations: no limitations - History of Present Illness Initial Comments: 76-year-old female with history of heart failure, diabetes, hypertension, hyperlipidemia, thyroid disorder presenting with chief complaint of shortness of breath. Patient has history of bilateral pleural effusions, she is currently undergoing workup by cardiology, pulmonology, and oncology. Pluerx was put in place for draining effusions, this occurs every Saturday, Saturday, Saturday. Patient states that today she developed increasing shortness of breath and states that she could not wait until tomorrow to have the fluid drained. She has bilateral lower extremity swelling, she states that she is at her baseline for this swelling. She is having no chest pain. No palpitations. No nausea, vomiting, abdominal pain. No URI-like symptoms. No fevers or chills. - Related Data Home Medications Medication Instructions Recorded Confirmed Simvastatin 40 mg PO HS 07/03/22 10/11/22 Ferrous Sulfate [Iron (65 MG 325 mg PO DAILY 09/10/22 10/11/22 Elemental)] Fluticasone/Umeclidin/Vilanter 1 puff INHALATION RT-DAILY 09/10/22 10/11/22 [Trelegy Ellipta 200-62.5-25] Loratadine [Claritin] 10 mg PO DAILY 09/10/22 10/11/22 Montelukast [Singulair] 10 mg PO DAILY 09/10/22 10/11/22 Omeprazole 40 mg PO DAILY 09/10/22 10/11/22 Ondansetron [Zofran] 4 mg PO Q6H PRN 09/10/22 10/11/22 Calcium Carb-Vit D 500Mg-5Mcg 1 tab PO BID-W/MEALS 10/11/22 10/11/22 [Oscal 500+D 5 Mcg (200 Iu)] Insulin Lispro See Protocol SQ ACHS PRN 10/11/22 10/11/22 Levothyroxine Sodium [Synthroid] 150 mcg PO DAILY 10/11/22 10/11/22 Previous Rx's Medication Instructions Recorded Acetaminophen Tab [Tylenol] 650 mg PO Q6HR PRN tab 07/10/22 Ipratropium-Albuterol Nebulize 3 ml INHALATION RT-QID each 09/18/22 [Duoneb 0.5 mg-3 mg/3 ml Soln] Budesonide [Pulmicort] 0.5 mg INHALATION RT-BID 90 Days 10/19/22 #180 ml Dapagliflozin Propanediol [Farxiga] 5 mg PO DAILY 90 Days #90 tab 10/19/22 Furosemide [Lasix] 40 mg PO BID@0900,1600 90 Days 10/19/22 #180 tab Insulin Detemir (Levemir) [Levemir] 10 unit SQ HS each 10/19/22 Losartan [Cozaar] 12.5 mg PO DAILY 90 Days #90 tab 10/19/22 Allergies Allergy/AdvReac Type Severity Reaction Status Date / Time No Known Allergies Allergy Verified 11/04/22 17:41 Review of Systems ROS Statement: Those systems with pertinent positive or pertinent negative responses have been documented in the HPI. ROS Other: All systems not noted in ROS Statement are negative. Past Medical History Past Medical History: Heart Failure, Diabetes Mellitus, Hyperlipidemia, Hypertension, Thyroid Disorder Additional Past Medical History / Comment(s): left leg swells at end of day every day for about a year History of Any Multi-Drug Resistant Organisms: None Reported Past Surgical History: Cholecystectomy Additional Past Surgical History / Comment(s): cholecystectomy, cataract surgery Past Anesthesia/Blood Transfusion Reactions: No Reported Reaction Past Psychological History: No Psychological Hx Reported Smoking Status: Never smoker Past Alcohol Use History: Occasional Past Drug Use History: None Reported - Past Family History Father Family Medical History: Cancer, Prostate Disorder Additional Family Medical History / Comment(s): prostate CA Mother Additional Family Medical History / Comment(s): parkinsons General Exam Limitations: no limitations General appearance: alert, in no apparent distress Head exam: Present: atraumatic, normocephalic, normal inspection Eye exam: Present: normal appearance Neck exam: Present: normal inspection, full ROM Respiratory exam: Present: decreased breath sounds (B/L bases). Absent: respiratory distress, wheezes, stridor, accessory muscle use Cardiovascular Exam: Present: regular rate, normal rhythm, normal heart sounds. Absent: systolic murmur, diastolic murmur, rubs, gallop, clicks Extremities exam: Present: pedal edema Neurological exam: Present: alert, oriented X3, CN II-XII intact Psychiatric exam: Present: normal affect, normal mood Skin exam: Present: warm, dry, intact, normal color. Absent: rash Course Vital Signs 11/04/22 11/04/22 11/04/22 17:34 19:15 21:41 Temperature 97.6 F 98.4 F Pulse Rate 89 87 88 Respiratory 18 17 18 Rate Blood Pressure 121/69 110/46 120/51 O2 Sat by Pulse 94 L 94 L 96 Oximetry Medical Decision Making - Medical Decision Making Was pt. sent in by a medical professional or institution (, PA, DAMAGE ADJUSTER, urgent care, hospital, or skilled nursing...) When possible be specific @ -No Did you speak to anyone other than the patient for history (EMS, parent, family, police, friend...)? What history was obtained from this source @ -No Did you review nursing and triage notes (agree or disagree)? Why? @ -I reviewed and agree with nursing and triage notes Were old charts reviewed (outside hosp., previous admission, EMS record, old EKG, old radiological studies, urgent care reports/EKG's, skilled nursing records)? Report findings @ -Records from the patient's previous admissions were reviewed Differential Diagnosis (chest pain, altered mental status, abdominal pain women, abdominal pain men, vaginal bleeding, weakness, fever, dyspnea, syncope, headache, dizziness, GI bleed, back pain, seizure, CVA, palpatations, mental health, musculoskeletal)? @ -MDM Differential Dyspnea: Coronary syndrome, arrhythmia, tamponade, asthma, COPD, pulmonary embolism, pneumonia, pneumothorax, pulmonary effusion, anaphylaxis, diabetic ketoacidosis, flailed chest, pulmonary contusion, diaphragmatic rupture, anemia, neuromuscular this is not meant to be an all-inclusive list. EKG interpreted by me (3pts min.). @ -Sinus rhythm ventricular rate 90. PA interval 133. QRS 85. QT 370. QTC 400. No acute ischemic changes. Artifact present. X-rays interpreted by me (1pt min.). @ -X-ray shows small to moderate bilateral pleural effusions with bilateral Pleurx catheters in place. No pneumothorax. CT interpreted by me (1pt min.). @ -None done U/S interpreted by me (1pt. min.). @ -None done What testing was considered but not performed or refused? (CT, X-rays, U/S, labs)? Why? @ -None What meds were considered but not given or refused? Why? @ -None Did you discuss the management of the patient with other professionals (professionals i.e. , PA, DAMAGE ADJUSTER, lab, RT, psych nurse, social media campaign manager, dispatcher automobile rental, teacher, environmental compliance officer, case checker)? Give summary @ -No Was smoking cessation discussed for >3mins.? @ -No Was critical care preformed (if so, how long)? @ -No Were there social determinants of health that impacted care today? How? (Homelessness, low income, unemployed, alcoholism, drug addiction, transportation, low edu. Level, literacy, decrease access to med. care, retirement, rehab)? @ -No Was there de-escalation of care discussed even if they declined (Discuss DNR or withdrawal of care, Hospice)? DNR status @ -No What co-morbidities impacted this encounter? (DM, HTN, Smoking, COPD, CAD, Cancer, CVA, ARF, Chemo, Hep., AIDS, mental health diagnosis, sleep apnea, morbid obesity)? @ -CHF, bilateral pleural effusions chronic in nature Was patient admitted / discharged? Hospital course, mention meds given and route, prescriptions, significant lab abnormalities, going to OR and other pertinent info. @ -76-year-old female presenting with chief complaint of shortness of breath. Patient has history of bilateral recurrent pleural effusions and has Pleurx catheters in place. She states that she gets these drained every Saturday and Saturday. She began having increased shortness of breath today and was hoping to get drained early. Vital signs are stable. WBC 21, leukocytosis is chronic for this patient. Sodium 129. Glucose 621, patient is given insulin, normal anion gap and CO2. Troponin is negative. BNP 583, similar to last admissions value. Chest x-ray shows small to moderate bilateral pleural e ffusions. I educated the patient on today's findings. Informed the patient that we should admit her for CHF. Patient refused stating that she does not want to be hospitalized anymore. She states that she wants to go home and have her pleural effusions drained tomorrow as regularly scheduled. She would rather follow up outpatient. She is of sound mind and body able to make her own decisions. On reassessment her glucose is 475, patient does not want to wait any longer and states that she will take her insulin at home.Follow-up with PCP. Report back to ER with any new or worsening symptoms. Discussed return parameters and answered all questions. Patient conveyed verbal understanding and agreed to the plan. I discussed this case in detail with my attending Dr. Pardo Undiagnosed new problem with uncertain prognosis? @ -No Drug Therapy requiring intensive monitoring for toxicity (Heparin, Nitro, Insulin, Cardizem)? @ -No Were any procedures done? @ -No Diagnosis/symptom? @ -pleural effusions; hyperglycemia Acute, or Chronic, or Acute on Chronic? @ -Acute and chronic; acute Uncomplicated (without systemic symptoms) or Complicated (systemic symptoms)? @ -Uncomplicated Side effects of treatment? @ -No Exacerbation, Progression, or Severe Exacerbation? @ -No Poses a threat to life or bodily function? How? (Chest pain, USA, PA, pneumonia, PE, COPD, DKA, ARF, appy, cholecystitis, CVA, Diverticulitis, Homicidal, Suicidal, threat to staff... and all critical care pts) @ -Potentially - Lab Data Result diagrams: 11/04/22 18:59 11/04/22 18:59 Lab Results 11/04/22 11/04/22 11/04/22 Range/Units 18:59 18:59 18:59 WBC 21.0 H (3.8-10.6) k/uL RBC 4.85 (3.80-5.40) m/uL Hgb 13.6 (11.4-16.0) gm/dL Hct 42.6 (34.0-46.0) % MCV 87.9 (80.0-100.0) fL MCH 28.1 (25.0-35.0) pg MCHC 32.0 (31.0-37.0) g/dL RDW 15.4 (11.5-15.5) % Plt Count 121 L (150-450) k/uL MPV 12.5 Neutrophils % (Manual) 83 % Band Neuts % (Manual) 2 % Lymphocytes % (Manual) 7 % Monocytes % (Manual) 8 % Neutrophils # (Manual) 17.80 H (1.3-7.7) k/uL Lymphocytes # (Manual) 1.47 (1.0-4.8) k/uL Monocytes # (Manual) 1.68 H (0-1.0) k/uL Nucleated RBCs 0 (0-0) /100 WBC Hypersegmented Neuts Present Hypochromasia Slight Hypochromasia (manual) Present Anisocytosis (manual) Present PT 10.7 (9.0-12.0) sec INR 1.0 (<1.2) APTT 22.3 (22.0-30.0) sec Sodium 129 L (137-145) mmol/L Potassium 4.7 (3.5-5.1) mmol/L Chloride 94 L (98-107) mmol/L Carbon Dioxide 25 (22-30) mmol/L Anion Gap 10 mmol/L BUN 22 H (7-17) mg/dL Creatinine 0.70 (0.52-1.04) mg/dL Est GFR (CKD-EPI)AfAm >90 (>60 ml/min/1.73 sqM) Est GFR (CKD-EPI)NonAf 84 (>60 ml/min/1.73 sqM) Glucose 621 H* (74-99) mg/dL POC Glucose (mg/dL) (70-110) mg/dL POC Glu Proof Tester ID Plasma Lactic Acid Yoni (0.7-2.0) mmol/L Calcium 7.4 L (8.4-10.2) mg/dL Total Bilirubin 0.5 (0.2-1.3) mg/dL AST 32 (14-36) U/L ALT 18 (4-34) U/L Alkaline Phosphatase 118 (38-126) U/L Troponin I (0.000-0.034) ng/mL NT-Pro-B Natriuret Pep 583 pg/mL Total Protein 6.1 L (6.3-8.2) g/dL Albumin 3.0 L (3.5-5.0) g/dL 11/04/22 11/04/22 11/04/22 Range/Units 18:59 18:59 21:09 WBC (3.8-10.6) k/uL RBC (3.80-5.40) m/uL Hgb (11.4-16.0) gm/dL Hct (34.0-46.0) % MCV (80.0-100.0) fL MCH (25.0-35.0) pg MCHC (31.0-37.0) g/dL RDW (11.5-15.5) % Plt Count (150-450) k/uL MPV Neutrophils % (Manual) % Band Neuts % (Manual) % Lymphocytes % (Manual) % Monocytes % (Manual) % Neutrophils # (Manual) (1.3-7.7) k/uL Lymphocytes # (Manual) (1.0-4.8) k/uL Monocytes # (Manual) (0-1.0) k/uL Nucleated RBCs (0-0) /100 WBC Hypersegmented Neuts Hypochromasia Hypochromasia (manual) Anisocytosis (manual) PT (9.0-12.0) sec INR (<1.2) APTT (22.0-30.0) sec Sodium (137-145) mmol/L Potassium (3.5-5.1) mmol/L Chloride (98-107) mmol/L Carbon Dioxide (22-30) mmol/L Anion Gap mmol/L BUN (7-17) mg/dL Creatinine (0.52-1.04) mg/dL Est GFR (CKD-EPI)AfAm (>60 ml/min/1.73 sqM) Est GFR (CKD-EPI)NonAf (>60 ml/min/1.73 sqM) Glucose (74-99) mg/dL POC Glucose (mg/dL) 475 H (70-110) mg/dL POC Glu Proof Tester ESTEVAN José Antonio Bell Plasma Lactic Acid Yoni 2.0 (0.7-2.0) mmol/L Calcium (8.4-10.2) mg/dL Total Bilirubin (0.2-1.3) mg/dL AST (14-36) U/L ALT (4-34) U/L Alkaline Phosphatase (38-126) U/L Troponin I <0.012 (0.000-0.034) ng/mL NT-Pro-B Natriuret Pep pg/mL Total Protein (6.3-8.2) g/dL Albumin (3.5-5.0) g/dL Disposition Clinical Impression: Pleural effusion, Hyperglycemia Disposition: HOME SELF-CARE Condition: Fair Instructions (If sedation given, give patient instructions): Pleural Effusion (DC), Diabetic Hyperglycemia (ED) Additional Instructions: Take your insulin tonight as discussed. Have your regularly scheduled appointment to remove fluid tomorrow. Follow-up with PCP. Report back to ER with any new or worsening symptoms. Is patient prescribed a controlled substance at d/c from ED?: No Referrals: Steve Barron MD [Primary Care Provider] - 1-2 days Time of Disposition: 21:13
[2022-11-04 19:16] VITALS: TEMP 98.4
--- NOTE | 2022-11-04 19:23 | XR ---
EXAMINATION TYPE: XR chest 2V DATE OF EXAM: 11/04/2022 7:18 PM COMPARISON: Chest radiographs from 10/19/2022 TECHNIQUE: XR chest 2V real. CLINICAL INDICATION:Female, 76 years old with history of difficulty breathing; FINDINGS: Lungs/Pleura: No pneumothorax or focal consolidation. Small to moderate bilateral pleural effusions. Pulmonary vascularity: Unremarkable. Heart/mediastinum: Cardiomediastinal silhouette is partially obscured due to overlying and adjacent o pacities. Musculoskeletal: No acute osseous pathology. Other findings: Cholecystectomy clips in the right upper quadrant. Lines/Tubes: Bilateral Pleurx catheters identified directed towards the hilum. IMPRESSION: Small to moderate bilateral pleural effusions with bilateral Pleurx catheters in place. No pneumothor ax.
[2022-11-04 19:24] LABS: HCT 42.6 % (34.0-46.0); HGB 13.6 gm/dL (11.4-16.0); Hypochromasia Slight; MCH 28.1 pg (25.0-35.0); MCV 87.9 fL (80.0-100.0); Mean Platelet Volume 12.5; Platelet Count 121 k/uL (150-450); RBC 4.85 m/uL (3.80-5.40); RDW 15.4 % (11.5-15.5)
[2022-11-04 19:36] LABS: ALT 18 U/L (4-34); AST 32 U/L (14-36); African American GFR (CKD) >90 (>60 ml/min/1.73 sqM); Alkaline Phosphatase 118 U/L (38-126); Anion Gap 10 mmol/L; Blood Urea Nitrogen 22 mg/dL (7-17); Calcium 7.4 mg/dL (8.4-10.2); Carbon Dioxide 25 mmol/L (22-30); Chloride 94 mmol/L (98-107); Non-African American GFR(CKD) 84 (>60 ml/min/1.73 sqM); Potassium 4.7 mmol/L (3.5-5.1); Sodium 129 mmol/L (137-145); Total Bilirubin 0.5 mg/dL (0.2-1.3); Total Protein 6.1 g/dL (6.3-8.2)
[2022-11-04 19:44] LABS: NT-Pro-B-Type Natriuretic Pept 583 pg/mL; Partial Thromboplastin Time 22.3 sec (22.0-30.0); Prothrombin Time 10.7 sec (9.0-12.0)
[2022-11-04 19:48] LABS: Glucose 621 mg/dL (74-99)
[2022-11-04] MEDS ORDERED: INSULIN REGULAR 100 UNIT/ML VIAL (IV) IV ONE (19:53)
[2022-11-04 21:11] LABS: Glucose,Whole Blood 475 mg/dL (70-110)
[2022-11-04 21:35] LABS: Band Neutrophils % 2 %; Hypochromasia (M) Present; Lymphocytes # (M) 1.47 k/uL (1.0-4.8); Monocytes # (M) 1.68 k/uL (0-1.0); Neutrophils % (M) 83 %; Nucleated Red Blood Cells 0 /100 WBC (0-0); Total Cells Counted 100
[2022-11-04 21:36] LABS: Anisocytosis (M) Present; Hypersegmented Neutrophils Present
[2022-11-04 21:42] VITALS: BP 120/51; PULSE 88; RESP 18
== END 2022-11-04 21:42 | disposition home or self-care (01) ==
LOC: EC 17:33
DX: J90 Pleural effusion, not elsewhere classified (principal); E11.65 Type 2 diabetes mellitus with hyperglycemia; I11.0 Hypertensive heart disease with heart failure; I50.9 Heart failure, unspecified; E07.9 Disorder of thyroid, unspecified; E78.5 Hyperlipidemia, unspecified; Z79.4 Long term (current) use of insulin; Z79.890 Hormone replacement therapy; Z79.51 Long term (current) use of inhaled steroids; Z79.899 Other long term (current) drug therapy
CPT/HCPCS: 36415; 71046; 80053; 83605; 83880; 84484; 85025; 85610; 85730; 93005; 99285

== ENCOUNTER → 2022-11-13 | Outpatient (CLI) | payer MEDICARE, OTHER ==
[2022-11-14 04:39] LABS: Appearance,BF Hazy (Clear)
[2022-11-14 04:41] LABS: Appearance,BF Hazy (Clear)
[2022-11-14 05:09] LABS: Amylase, Fluid Source Pleural fluid; Amylase,Body Fluid 20 U/L; Glucose, BF Source Pleural fluid; Glucose, Body Fluid 373 mg/dL; LDH, Body Fluid Source Pleural fluid; T. Protein, Body Fluid Source Pleural fluid; Total Protein, Body Fluid 2510 mg/dL
[2022-11-14 05:10] LABS: Amylase, Fluid Source Pleural fluid; Amylase,Body Fluid 24 U/L; Cholesterol,BF Source Pleural fluid; Cholesterol,Body Fluid 28 mg/dL; Glucose, BF Source Pleural fluid; Glucose, Body Fluid 372 mg/dL; LDH, Body Fluid Source Pleural fluid; T. Protein, Body Fluid Source Pleural fluid; Total Protein, Body Fluid 2570 mg/dL
[2022-11-14 05:10] LABS: Cholesterol,BF Source Pleural fluid; Cholesterol,Body Fluid 32 mg/dL
== END | disposition home or self-care (01) ==
LOC: LABWHC1 12:11
PROVIDERS: ATTEND Internal Medicine Critical Care Medicine
DX: J91.8 Pleural effusion in other conditions classified elsewhere (principal)
CPT/HCPCS: 36415; 82042; 82150; 82465; 82945; 83615; 84157; 89050

== ENCOUNTER 2022-11-25 19:38 | Inpatient (IN) | payer MEDICARE, OTHER ==
[2022-11-25] MEDS ORDERED: SODIUM CHLORIDE 0.9% 1,000 ML IV STA (19:44)
[2022-11-25] MEDS ORDERED: Alteplase PER PHARMACY Stroke 1 EACH MISC MISCELLANE PRN (19:52)
--- NOTE | 2022-11-25 19:57 | CT ---
EXAMINATION TYPE: CT brain wo con for TPA CT DLP: 1104.6 mGycm, Automated exposure control for dose reduction was used. DATE OF EXAM: 11/25/2022 7:50 PM COMPARISON: 623. CLINICAL INDICATION:Female, 77 years old with history of Neuro deficit, acute, stroke suspected, Neur o deficits code stroke TECHNIQUE: Brain: Axial CT images of the brain were obtained with coronal and sagittal reformats created and rev iewed. Contrast used: None. Oral contrast used: None. FINDINGS: Brain: Extra-axial spaces: No abnormal extra-axial fluid collections. Ventricular system: Dilatation in proportion to cerebral atrophy. Cerebral parenchyma: Cerebral atrophy. No acute intraparenchymal hemorrhage or mass effect. The pederson -white junction is well differentiated. Scattered hypoattenuating areas are seen within the white mat ter. Cerebellum: Unremarkable. Mass effect: No evidence of midline shift. Intracranial vasculature: Atherosclerotic calcifications of the intracranial vessels. Soft tissues: Normal. Calvarium/osseous structures: No depressed skull fracture. Paranasal sinuses and mastoid air cells: Mild scattered paranasal sinus disease. Visualized orbits: Bilateral aphakia IMPRESSION: 1. No acute intracranial process. 2. Nonspecific white matter changes, likely secondary to chronic small vessel ischemic disease.
[2022-11-25] MEDS ORDERED: ALTEPLASE BOLUS FOR STROKE 5 MG in EMPTY SYRINGE 1 SYR IV STA (20:01)
[2022-11-25] MEDS ORDERED: ALTEPLASE 47 MG in EMPTY BAG 1 BAG IV STA (20:01)
--- NOTE | 2022-11-25 20:06 | ED ---
Neuro HPI - General Chief Complaint: Weakness Stated Complaint: Alteplase Time Seen by Provider: 11/25/22 19:44 Source: EMS, RN notes reviewed, old records reviewed Mode of arrival: EMS Limitations: altered mental status - History of Present Illness Is the patient presenting with stroke symptoms?: Yes -: minutes(s) Initial Comments: This is a 69-year-old female to the emergency department presenting as a code alteplase code stroke. Prehospital code stroke. Patient is brought to the hospital by EMS and here in the ER is having expressive aphasia unable to provide history secondary to inability to express the words that she wants to say. Patient also having right-sided weakness Location: speech, right arm, right leg Place: home Severity: mild Quality: weak Improves With: none Worsens With: none Context: sudden onset Associated Symptoms: confusion Treatments Prior to Arrival: none - Related Data Home Medications: Home Medications Medication Instructions Recorded Confirmed Simvastatin 40 mg PO HS 07/03/22 11/25/22 Ferrous Sulfate [Iron (65 MG 325 mg PO DAILY 09/10/22 11/25/22 Elemental)] Fluticasone/Umeclidin/Vilanter 1 puff INHALATION RT-DAILY 09/10/22 11/25/22 [Trelegy Ellipta 200-62.5-25] Loratadine [Claritin] 10 mg PO DAILY 09/10/22 11/25/22 Montelukast [Singulair] 10 mg PO DAILY 09/10/22 11/25/22 Omeprazole 40 mg PO DAILY 09/10/22 11/25/22 Ondansetron [Zofran] 4 mg PO Q6H PRN 09/10/22 11/25/22 Calcium Carb-Vit D 500Mg-5Mcg 1 tab PO BID-W/MEALS 10/11/22 11/25/22 [Oscal 500+D 5 Mcg (200 Iu)] Insulin Lispro See Protocol SQ ACHS PRN 10/11/22 11/25/22 Levothyroxine Sodium [Synthroid] 150 mcg PO DAILY 10/11/22 11/25/22 Previous Rx's Medication Instructions Recorded Acetaminophen Tab [Tylenol] 650 mg PO Q6HR PRN tab 07/10/22 Ipratropium-Albuterol Nebulize 3 ml INHALATION RT-QID each 06/13/23 [Duoneb 0.5 mg-3 mg/3 ml Soln] Budesonide [Pulmicort] 0.5 mg INHALATION RT-BID 90 Days 10/19/22 #180 ml Dapagliflozin Propanediol [Farxiga] 5 mg PO DAILY 90 Days #90 tab 10/19/22 Furosemide [Lasix] 40 mg PO BID@0900,1600 90 Days 10/19/22 #180 tab Insulin Detemir (Levemir) [Levemir] 10 unit SQ HS each 10/19/22 Losartan [Cozaar] 12.5 mg PO DAILY 90 Days #90 tab 10/19/22 Allergies/Adverse Reactions: Allergies Allergy/AdvReac Type Severity Reaction Status Date / Time No Known Allergies Allergy Verified 11/25/22 20:55 Review of Systems ROS Statement: Those systems with pertinent positive or pertinent negative responses have been documented in the HPI. ROS Other: All systems not noted in ROS Statement are negative. General Exam - General Exam Comments Initial Comments: Expressive aphasia NIH 5 Limitations: altered mental status General appearance: alert, in no apparent distress, anxious, in distress Head exam: Present: atraumatic, normocephalic, normal inspection Eye exam: Present: normal appearance, PERRL, EOMI. Absent: scleral icterus, conjunctival injection, periorbital swelling ENT exam: Present: normal exam, mucous membranes moist Neck exam: Present: normal inspection. Absent: tenderness, meningismus, lymphadenopathy Respiratory exam: Present: normal lung sounds bilaterally. Absent: respiratory distress, wheezes, rales, rhonchi, stridor Cardiovascular Exam: Present: regular rate, normal rhythm, normal heart sounds. Absent: systolic murmur, diastolic murmur, rubs, gallop, clicks GI/Abdominal exam: Present: soft, normal bowel sounds. Absent: distended, tenderness, guarding, rebound, rigid Extremities exam: Present: normal inspection, full ROM, normal capillary refill. Absent: tenderness, pedal edema, joint swelling, calf tenderness Back exam: Present: normal inspection Neurological exam: Present: alert, oriented X3, CN II-XII intact Psychiatric exam: Present: normal affect, normal mood Skin exam: Present: warm, dry, intact, normal color. Absent: rash Stroke MDM - Lab Data Result diagrams: 11/29/22 05:44 11/29/22 05:44 Lab Results 11/25/22 11/25/22 11/25/22 Range/Units 20:10 20:14 20:14 WBC 20.7 H (3.8-10.6) k/uL RBC 4.35 (3.80-5.40) m/uL Hgb 11.9 (11.4-16.0) gm/dL Hct 36.9 (34.0-46.0) % MCV 84.8 (80.0-100.0) fL MCH 27.4 (25.0-35.0) pg MCHC 32.3 (31.0-37.0) g/dL RDW 15.7 H (11.5-15.5) % Plt Count 103 L (150-450) k/uL MPV 9.3 Neutrophils % (Manual) 66 % Lymphocytes % (Manual) 17 % Monocytes % (Manual) 17 % Neutrophils # (Manual) 13.66 H (1.3-7.7) k/uL Lymphocytes # (Manual) 3.52 (1.0-4.8) k/uL Monocytes # (Manual) 3.52 H (0-1.0) k/uL Nucleated RBCs 0 (0-0) /100 WBC Manual Slide Review Performed PT 11.2 (9.0-12.0) sec INR 1.1 (<1.2) APTT 21.3 L (22.0-30.0) sec Sodium (137-145) mmol/L Potassium (3.5-5.1) mmol/L Chloride (98-107) mmol/L Carbon Dioxide (22-30) mmol/L Anion Gap mmol/L BUN (7-17) mg/dL Creatinine (0.52-1.04) mg/dL Est GFR (CKD-EPI)AfAm (>60 ml/min/1.73 sqM) Est GFR (CKD-EPI)NonAf (>60 ml/min/1.73 sqM) Glucose (74-99) mg/dL POC Glucose (mg/dL) 237 H (70-110) mg/dL POC Glu Red Leader ID July Calcium (8.4-10.2) mg/dL Total Bilirubin (0.2-1.3) mg/dL AST (14-36) U/L ALT (4-34) U/L Alkaline Phosphatase (38-126) U/L Creatine Kinase (30-135) U/L Troponin I (0.000-0.034) ng/mL Total Protein (6.3-8.2) g/dL Albumin (3.5-5.0) g/dL 11/25/22 11/25/22 Range/Units 20:14 20:14 WBC (3.8-10.6) k/uL RBC (3.80-5.40) m/uL Hgb (11.4-16.0) gm/dL Hct (34.0-46.0) % MCV (80.0-100.0) fL MCH (25.0-35.0) pg MCHC (31.0-37.0) g/dL RDW (11.5-15.5) % Plt Count (150-450) k/uL MPV Neutrophils % (Manual) % Lymphocytes % (Manual) % Monocytes % (Manual) % Neutrophils # (Manual) (1.3-7.7) k/uL Lymphocytes # (Manual) (1.0-4.8) k/uL Monocytes # (Manual) (0-1.0) k/uL Nucleated RBCs (0-0) /100 WBC Manual Slide Review PT (9.0-12.0) sec INR (<1.2) APTT (22.0-30.0) sec Sodium 127 L (137-145) mmol/L Potassium 4.6 (3.5-5.1) mmol/L Chloride 100 (98-107) mmol/L Carbon Dioxide 21 L (22-30) mmol/L Anion Gap 6 mmol/L BUN 29 H (7-17) mg/dL Creatinine 1.13 H (0.52-1.04) mg/dL Est GFR (CKD-EPI)AfAm 54 (>60 ml/min/1.73 sqM) Est GFR (CKD-EPI)NonAf 47 (>60 ml/min/1.73 sqM) Glucose 240 H (74-99) mg/dL POC Glucose (mg/dL) (70-110) mg/dL POC Glu Red Leader ID Calcium 6.6 L (8.4-10.2) mg/dL Total Bilirubin 0.2 (0.2-1.3) mg/dL AST 16 (14-36) U/L ALT 17 (4-34) U/L Alkaline Phosphatase 76 (38-126) U/L Creatine Kinase <20 L (30-135) U/L Troponin I <0.012 (0.000-0.034) ng/mL Total Protein 4.1 L (6.3-8.2) g/dL Albumin 1.9 L (3.5-5.0) g/dL - NIH Stroke Scale 1a. Level of Consciousness: (0) alert 1b. LOC Questions: (1) answers 1 question correctly 1c. LOC Commands: (1) performs 1 task correctly 2. Best Gaze: (0) normal 3. Visual: (0) no visual loss 4. Facial Palsy: (0) normal symmetrical movement 5a. Motor Arm Left: (0) no drift 5b. Motor Arm Right: (1) drift 6a. Motor Leg Left: (0) no drift 6b. Motor Leg Right: (1) drift 7. Limb Ataxia: (1) present 1 limb 8. Sensory: (0) normal 9. Best Language: (1) mild/moderate aphasia 10. Dysarthria: (1) mild/moderate dysarthria 11. Extinction/Inattention: (0) no abnormality - Thrombolytic Inclusion/Exclusion Thrombolytic Inclusion Criteria: Symptom Onset < 4.5 h - Core Measures AMI Core Measures Followed: Yes - Medical Decision Making 77 female who did receive TPA is a code stroke here in the emergency department. Patient will be admitted ICU - Radiology Data Radiology results: report reviewed (CT brain CT had neck negative for acute disease), image reviewed - EKG Data -: EKG Interpreted by Me (EKG is sinus 86 IN 136 QRS 80 QTC 408) Past Medical History Past Medical History: Heart Failure, Diabetes Mellitus, Hyperlipidemia, Hyperte nsion, Thyroid Disorder Additional Past Medical History / Comment(s): left leg swells at end of day every day for about a year History of Any Multi-Drug Resistant Organisms: None Reported Past Surgical History: Cholecystectomy Additional Past Surgical History / Comment(s): cholecystectomy, cataract surgery Past Anesthesia/Blood Transfusion Reactions: No Reported Reaction Past Psychological History: No Psychological Hx Reported Smoking Status: Never smoker Past Alcohol Use History: Occasional Past Drug Use History: None Reported - Past Family History Father Family Medical History: Cancer, Prostate Disorder Additional Family Medical History / Comment(s): prostate CA Mother Additional Family Medical History / Comment(s): parkinsons Course Vital Signs 11/25/22 11/25/22 11/25/22 19:39 20:28 20:44 Temperature 97.5 F L 98.6 F Pulse Rate 86 83 82 Pulse Rate [ Guest Services Officer ] Respiratory 18 16 18 Rate Blood Pressure 121/69 95/58 106/55 O2 Sat by Pulse 98 100 99 Oximetry 11/25/22 11/25/22 11/25/22 20:52 20:59 21:14 Temperature 97.9 F 97.7 F 97.5 F L Pulse Rate 84 84 Pulse Rate [ 80 Guest Services Officer ] Respiratory 17 16 16 Rate Blood Pressure 99/62 111/51 O2 Sat by Pulse 97 100 100 Oximetry 11/25/22 21:29 Temperature Pulse Rate 85 Pulse Rate [ Guest Services Officer ] Respiratory 16 Rate Blood Pressure 111/57 O2 Sat by Pulse 100 Oximetry - Reevaluation(s) Reevaluation #1: 11/25/22 20:36 Medical records reviewed 11/25/22 20:36 Code stroke paged prior to patient arrival Reevaluation #2: 11/25/22 22:56 No change in symptoms here in the ER Reevaluation #3: 11/25/22 20:37 Spoke with patient aware findings Reevaluation #4: 11/25/22 20:36 Was pt. sent in by a medical professional or institution (, PA, CASH SURRENDER CALCULATOR, urgent care, hospital, or retirement...) When possible be specific @ -no Did you speak to anyone other than the patient for history (EMS, parent, family, police, friend...)? What history was obtained from this source @ -no Did you review nursing and triage notes (agree or disagree)? Why? @ -agree Are old charts reviewed (outside hosp., previous admission, EMS record, old EKG, old radiological studies, urgent care reports/EKG's, retirement records)? Report findings @ -yes Differential Diagnosis (chest pain, altered mental status, abdominal pain women, abdominal pain men, vaginal bleeding, weakness, fever, dyspnea, syncope, headache, dizziness, GI bleed, back pain, seizure, CVA, palpatations, mental health, musculoskeletal)? @ -prior EKG interpreted by me (3pts min.). @ -yes X-rays interpreted by me (1pt min.). @ -yes CT interpreted by me (1pt min.). @ -yes U/S interpreted by me (1pt. min.). @ -no What testing was considered but not performed or refused? (CT, X-rays, U/S, labs)? Why? @ -none What meds were considered but not given or refused? Why? @ -none Did you discuss the management of the patient with other professionals (professionals i.e. DrJazmyn, PA, CASH SURRENDER CALCULATOR, lab, RT, psych nurse, social psychologist, metal template maker, teacher, credit officer, case management director)? Give summary @ -no Was smoking cessation discussed for >3mins.? @ -no Was critical care preformed (if so, how long)? @ -yes31 Were there social determinants of health that impacted care today? How? (Homelessness, low income, unemployed, alcoholism, drug addiction, transportation, low edu. Level, literacy, decrease access to med. care, fdc, rehab)? @ -none Was there de-escalation of care discussed even if they declined (Discuss DNR or withdrawal of care, Hospice)? DNR status @ -no What co-morbidities impacted this encounter? (DM, HTN, Smoking, COPD, CAD, Cancer, CVA, ARF, Chemo, Hep., AIDS, mental health diagnosis, sleep apnea, morbid obesity)? @ -none Was patient admitted / discharged? Hospital course, mention meds given and route, prescriptions, significant lab abnormalities, going to OR and other pertinent info. @ - 77 female who did receive TPA is a code stroke here in the emergency department. Patient will be admitted ICU Admitted Undiagnosed new problem with uncertain prognosis? @ -no Drug Therapy requiring intensive monitoring for toxicity (Heparin, Nitro, Insu mary, Cardizem)? @ -no Were any procedures done? @ -no Diagnosis/symptom? @ -CVA Acute, or Chronic, or Acute on Chronic? @ -Acute Uncomplicated (without systemic symptoms) or Complicated (systemic symptoms)? @ -Complicated Side effects of treatment? @ -no Exacerbation, Progression, or Severe Exacerbation? @ -exacerbation Poses a threat to life or bodily function? How? (Chest pain, USA, CO, pneumonia, PE, COPD, DKA, ARF, appy, cholecystitis, CVA, Diverticulitis, Homicidal, Suicidal, threat to staff... and all critical care pts) @ -yes CVA with TPA Reevaluation #5: 11/25/22 20:36 Differential CVA Ischemic stroke, hemorrhagic stroke, brain tumor, atypical migraine, Wernicke's encephalopathy, seizure, multiple sclerosis, meningitis, encephalitis, hypoglycemia, Guillain-Retana, electrolytes disturbance, myasthenia gravis.... This is not meant to be an all-inclusive list - Consultations Consultation #1: Spoke with Dr. Barron who agrees to admit the patient Consultation #2: Spoke with Dr. Claire who accepts patient to the ICU Critical Care Time Critical Care Time: Yes Total Critical Care Time: 31 Disposition Clinical Impression: Expressive aphasia, CVA (cerebral vascular accident), Generalized weakness Disposition: ADMITTED IP TO THIS [facility] Condition: Serious Is patient prescribed a controlled substance at d/c from ED?: No Time of Disposition: 20:40
[2022-11-25 20:12] LABS: Glucose,Whole Blood 237 mg/dL (70-110)
[2022-11-25 20:20] LABS: HCT 36.9 % (34.0-46.0); HGB 11.9 gm/dL (11.4-16.0); MCH 27.4 pg (25.0-35.0); MCHC 32.3 g/dL (31.0-37.0); MCV 84.8 fL (80.0-100.0); Mean Platelet Volume 9.3; Platelet Count 103 k/uL (150-450); RBC 4.35 m/uL (3.80-5.40); RDW 15.7 % (11.5-15.5); WBC 20.7 k/uL (3.8-10.6)
--- NOTE | 2022-11-25 20:24 | CT ---
EXAMINATION TYPE: CT angio head neck CT DLP: 300.8 mGycm, Automated exposure control for dose reduction was used. DATE OF EXAM: 11/25/2022 8:15 PM COMPARISON: 11/25/2022. CLINICAL INDICATION:Female, 77 years old with history of Neuro deficit, acute, stroke suspected; PHH, Neuro deficits, code alteplase called TECHNIQUE: Axially acquired helical CT angiogram of the head and neck was obtained with contrast. Axi al images are supplemented with 3D reconstructions [facility] NASCET criteria used. Contrast used:65 mL of Isovue 370 with IV Contrast, Oral contrast used: None. FINDINGS: CTA HEAD: No evidence of acute intracranial hemorrhage, mass effect, or midline shift. The ventricles, sulci, a nd cisterns are unremarkable. The visualized portions of the internal carotid arteries, middle cerebral arteries, anterior cerebral arteries, and posterior cerebral arteries are patent. Hypoplastic right A1 segment. The basilar and vertebral arteries are patent. CTA NECK: Right Carotid System: The common carotid artery and external carotid artery are patent. The carotid bifurcation demonstrate s no evidence of hemodynamically significant stenosis. The remaining portions of the internal carotid artery demonstrate normal size without significant narrowing. Left Carotid System: The common carotid artery and external carotid artery are patent. The carotid bifurcation demonstrate s no evidence of hemodynamically significant stenosis. The remaining portions of the internal carotid artery demonstrate normal size without significant narrowing. Vertebral arteries are patent without evidence hemodynamically significant stenosis. There is a three-vessel aortic arch. The origins of the great vessels are patent. No evidence of hemo dynamically significant stenosis. Upper thorax: Partially visualized trace bilateral pleural effusions with bilateral thoracotomy tubes . IMPRESSION: 1. No evidence of dissection of the cervical internal carotid arteries or vertebral arteries or any e vidence of significant stenosis at the carotid bifurcations. 2. No evidence of intracranial high-grade stenosis or intracranial aneurysm. 3. Bilateral thoracotomy tubes with small bilateral pleural effusions.
[2022-11-25] MEDS ORDERED: MORPHINE SULFATE 4 MG/ML SYRINGE IV PRN (20:33)
[2022-11-25] MEDS ORDERED: NALOXONE 0.4 MG/ML 1 ML VIAL IV PRN (20:33)
[2022-11-25 20:42] LABS: INR 1.1 (<1.2); Prothrombin Time 11.2 sec (9.0-12.0)
[2022-11-25 20:47] LABS: Partial Thromboplastin Time 21.3 sec (22.0-30.0)
[2022-11-25 20:49] LABS: Lymphocytes # (M) 3.52 k/uL (1.0-4.8); Monocytes # (M) 3.52 k/uL (0-1.0); Neutrophils # (M) 13.66 k/uL (1.3-7.7); Neutrophils % (M) 66 %; Nucleated Red Blood Cells 0 /100 WBC (0-0); Total Cells Counted 100
[2022-11-25] MEDS ORDERED: SODIUM CHLORIDE 0.9% 50 ML MINI-BAG IV ONE ×2 (20:53→21:01)
[2022-11-25 21:03] LABS: ALT 17 U/L (4-34); AST 16 U/L (14-36); African American GFR (CKD) 54 (>60 ml/min/1.73 sqM); Albumin 1.9 g/dL (3.5-5.0); Alkaline Phosphatase 76 U/L (38-126); Blood Urea Nitrogen 29 mg/dL (7-17); Calcium 6.6 mg/dL (8.4-10.2); Carbon Dioxide 21 mmol/L (22-30); Creatine Kinase <20 U/L (30-135); Glucose 240 mg/dL (74-99); Non-African American GFR(CKD) 47 (>60 ml/min/1.73 sqM); Total Bilirubin 0.2 mg/dL (0.2-1.3); Total Protein 4.1 g/dL (6.3-8.2)
--- NOTE | 2022-11-25 21:45 | XR ---
EXAMINATION TYPE: XR chest 1V portable DATE OF EXAM: 11/25/2022 9:36 PM COMPARISON: Chest radiographs from 11/04/2022 TECHNIQUE: XR chest 1V portable Frontal view of the chest. CLINICAL INDICATION:Female, 77 years old with history of cp; FINDINGS: Lungs/Pleura: Low lung volumes. Prominent interstitial lung markings are seen scattered throughout th e lungs. No evidence of focal consolidation, pneumothorax or pleural effusion. Pulmonary vascularity: Unremarkable. Heart/mediastinum: Cardiomediastinal silhouette is unremarkable. Musculoskeletal: No acute osseous pathology. Other findings: None Lines/Tubes: Bilateral thoracotomy tubes are present without evidence of pneumothorax. IMPRESSION: Bilateral thoracotomy tubes without evidence of pneumothorax. Low lung volumes with Interstitial lung changes are similar to prior.
[2022-11-25 21:50] LABS: Glucose,Whole Blood 233 mg/dL (70-110)
[2022-11-25 21:54] LABS: Anion Gap 6 mmol/L; Chloride 100 mmol/L (98-107); Potassium 4.6 mmol/L (3.5-5.1); Sodium 127 mmol/L (137-145)
[2022-11-25] MEDS ORDERED: DEXTROSE 50% SYRINGE 50 ML IVP PRN ×2 (23:04)
[2022-11-25] MEDS ORDERED: CALCIUM GLUCONATE IN NACL 2 GM in SALINE 1 100ML.BAG IVPB ONE (23:22)
[2022-11-25] MEDS: INSULIN DETEMIR (LEVEMIR) 100 UNIT/ML SYR SQ SCH (23:32)
[2022-11-25] MEDS: SODIUM CHLORIDE 0.9% 1,000 ML IV SCH (23:34)
[2022-11-26 00:19] LABS: Appearance,Urine Clear (Clear); Bacteria,Urine Rare /hpf; Bilirubin,Urine Negative (Negative); Blood,Urine Negative (Negative); Color,Urine Yellow; Glucose,Urine (UA) Trace (Negative); Ketones,Urine Negative (Negative); Leukocyte Esterase,Urine Small (Negative); Nitrite,Urine Negative (Negative); Protein,Urine Trace (Negative); RBC,Urine <1 /hpf (0-5); Specific Gravity,Urine 1.038 (1.001-1.035); Squamous Epithelial Cell,Urine <1 /hpf (0-4); Urobilinogen,Urine <2.0 mg/dL (<2.0); WBC,Urine 1 /hpf (0-5)
[2022-11-26 02:15] LABS: T4, Free (Free Thyroxine) 0.07 ng/dL (0.78-2.19)
--- NOTE | 2022-11-26 04:43 | P.CNPUL ---
History of Present Illness Consult date: 11/26/22 Requesting physician: Juan Harkins Reason for consult: other (ICU management; CVA) Chief complaint: Dysphasia and right-sided hemiparesis History of present illness: I am seeing this patient in new consultation today 11/26/2022 in the intensive care unit for an acute CVA status post TPA infusion. Patient is a 77-year-old female with past medical history significant for diabetes mellitus, hyperlipidemia, hypertension, hypothyroidism, monoclonal B-cell lymphocytosis, and recurrent pleural effusions. Her primary care provider is Dr. Steve Barron. She does follow in the office with Dr. Rodgers for recurrent pleural effusions. Patient recently had a hospital admission for recurrent bilateral pleural effusions, and is status post bilateral Pleurx catheter insertion on 10/19/2022, the patient was discharged home the following day. Patient's most recent fluid analysis was transudative based on Light's criteria, and cytology has always been negative. Patient presented to the emergency room last night after her called EMS immediately after strokelike symptoms presented. The patient was initially aphasic and had significant right-sided hemiparesis. Initial NIH was recorded at 7. In the emergency room, the patient was administered TPA. She has had improvement in her right-sided weakness and some modest improvement in her dysphasia. Her speech is still significantly impaired, and it is difficult to obtain HPI from the patient. Brain CT did not show any acute intracranial abnormalities. Brain CTA did not show any evidence of intracranial or carotid aneurysm, dissection or significant stenosis. Patient is currently sitting up in bed, on room air, in no acute distress. She is frustrated with her expressive dysphasia. Her right-sided hemiparesis appe ars to have mostly resolved. She may have some minimal right-sided facial weakness. Patient has no evidence of post-TPA bleeding. There is a 24 hr follow-up brain CT ordered. CBC shows a WBC count of 20.7, hemoglobin 11.9, hematocrit 36.9, platelets 103. BMP shows sodium 127, potassium 4.6, chloride 100, serum bicarbonate 21, BUN 29, creatinine 1.13, blood glucose 240. Normal saline is currently infusing at 75 mL per hour. Patient does have 2 Pleurx catheters, with surrounding insertion sites clean and dry. She reportedly drains the catheters every 48 hours. Chest x-ray redemonstrates the bilateral thoracotomy tubes without evidence of pneumothorax and trace to small bilateral pleural effusions. Patient is hemodynamically stable at this time. Review of Systems ROS unobtainable: due to mental status Past Medical History Past Medical History: Heart Failure, Diabetes Mellitus, Hyperlipidemia, Hyperte nsion, Thyroid Disorder Additional Past Medical History / Comment(s): left leg swells at end of day every day for about a year History of Any Multi-Drug Resistant Organisms: None Reported Past Surgical History: Cholecystectomy Additional Past Surgical History / Comment(s): cholecystectomy, cataract surgery Past Anesthesia/Blood Transfusion Reactions: No Reported Reaction Past Psychological History: No Psychological Hx Reported Smoking Status: Never smoker Past Alcohol Use History: Occasional Past Drug Use History: None Reported - Past Family History Father Family Medical History: Cancer, Prostate Disorder Additional Family Medical History / Comment(s): prostate CA Mother Additional Family Medical History / Comment(s): parkinsons Medications and Allergies Home Medications Medication Instructions Recorded Confirmed Type Simvastatin 40 mg PO HS 07/03/22 11/25/22 History Acetaminophen Tab [Tylenol] 650 mg PO Q6HR PRN tab 07/10/22 11/25/22 Rx Ferrous Sulfate [Iron (65 MG 325 mg PO DAILY 09/10/22 11/25/22 History Elemental)] Fluticasone/Umeclidin/Vilanter 1 puff INHALATION RT-DAILY 09/10/22 11/25/22 History [Trelegy Ellipta 200-62.5-25] Loratadine [Claritin] 10 mg PO DAILY 09/10/22 11/25/22 History Montelukast [Singulair] 10 mg PO DAILY 09/10/22 11/25/22 History Omeprazole 40 mg PO DAILY 09/10/22 11/25/22 History Ondansetron [Zofran] 4 mg PO Q6H PRN 09/10/22 11/25/22 History Ipratropium-Albuterol Nebulize 3 ml INHALATION RT-QID each 09/18/22 11/25/22 Rx [Duoneb 0.5 mg-3 mg/3 ml Soln] Calcium Carb-Vit D 500Mg-5Mcg 1 tab PO BID-W/MEALS 10/11/22 11/25/22 History [Oscal 500+D 5 Mcg (200 Iu)] Insulin Lispro See Protocol SQ ACHS PRN 10/11/22 11/25/22 History Levothyroxine Sodium [Synthroid] 150 mcg PO DAILY 10/11/22 11/25/22 History Budesonide [Pulmicort] 0.5 mg INHALATION RT-BID 90 Days 10/19/22 11/25/22 Rx #180 ml Dapagliflozin Propanediol [Farxiga] 5 mg PO DAILY 90 Days #90 tab 10/19/22 11/25/22 Rx Furosemide [Lasix] 40 mg PO BID@0900,1600 90 Days 10/19/22 11/25/22 Rx #180 tab Insulin Detemir (Levemir) [Levemir] 10 unit SQ HS each 10/19/22 11/25/22 Rx Losartan [Cozaar] 12.5 mg PO DAILY 90 Days #90 tab 10/19/22 11/25/22 Rx Allergies Allergy/AdvReac Type Severity Reaction Status Date / Time No Known Allergies Allergy Verified 11/25/22 20:55 Physical Exam Vitals: Vital Signs Temp Pulse Pulse Resp BP Pulse Ox 11/26/22 03:15 69 13 103/49 97 11/26/22 03:00 70 12 106/54 99 11/26/22 02:45 70 15 100/49 100 11/26/22 02:30 71 13 107/55 98 11/26/22 02:15 76 19 122/84 97 11/26/22 02:00 75 11 L 105/57 98 11/26/22 01:45 73 16 112/55 100 11/26/22 01:30 75 15 109/59 99 11/26/22 01:15 79 18 117/56 99 11/26/22 01:00 80 23 109/51 97 11/26/22 00:45 68 14 97/52 97 11/26/22 00:30 70 12 105/53 98 11/26/22 00:15 70 14 108/54 98 11/26/22 00:00 97.9 F 74 16 108/56 98 11/25/22 23:45 79 16 105/59 99 11/25/22 23:30 76 19 103/53 99 11/25/22 23:15 75 18 106/57 100 11/25/22 23:00 80 15 107/56 98 11/25/22 22:50 80 15 107/56 98 11/25/22 22:40 82 20 108/50 95 11/25/22 22:30 82 18 89/75 96 11/25/22 22:20 79 17 89/75 95 11/25/22 22:10 82 23 111/66 96 11/25/22 22:00 97.9 F 81 19 108/66 96 11/25/22 21:29 85 16 111/57 100 11/25/22 21:14 97.5 F L 84 16 111/51 100 11/25/22 20:59 97.7 F 84 16 99/62 100 11/25/22 20:52 97.9 F 80 17 97 11/25/22 20:44 98.6 F 82 18 106/55 99 11/25/22 20:28 97.5 F L 83 16 95/58 100 11/25/22 19:39 86 18 121/69 98 Intake and Output 11/25/22 11/25/22 11/26/22 14:59 22:59 06:59 Intake Total 225 Output Total 100 0 Balance -100 225 Intake: IV 225 Sodium Chloride 0.9% 1, 225 000 ml @ 75 mls/hr IV . [id number] [facility] Rx#:[id number] Output: Urine 100 0 Other: Voiding Method External Catheter Weight 58 kg GENERAL EXAM: Alert, 77-year-old white female appearing stated age, comfortable in no apparent distress. HEAD: Normocephalic and atraumatic EYES: Normal reaction of pupils, equal size. NOSE: Clear with pink turbinates. THROAT: No erythema or exudates. NECK: No masses, no JVD. CHEST: No chest wall deformity. Bilateral Pleurx catheters LUNGS: Equal air entry with no crackles, wheeze, rhonchi or dullness. On room air. No conversational dyspnea or accessory muscle use.. CVS: S1 and S2 normal with no audible murmur, regular rhythm. No extra heart sounds ABDOMEN: No hepatosplenomegaly, active bowel sounds, no guarding or rigidity. SPINE: No scoliosis or deformity SKIN: No rashes CENTRAL NERVOUS SYSTEM: Patient is alert. Bilateral upper extremities 4 out of 5 strength, bilateral lower extremities 3 out of 5 strength, there is minimal right-sided facial weakness, no identified visual disturbances, no gaze palsy, follows directions appropriately, no ataxia out of proportion to weakness, no sensory loss, no inattention, patient exhibits severe dysphasia EXTREMITIES: There is 3+ pitting bilateral lower extremity edema. No clubbing, or cyanosis. Peripheral pulses are intact. Results - Laboratory Findings CBC and BMP: 11/26/22 05:47 11/26/22 05:47 PT/INR, D-dimer PT 11.2 sec (9.0-12.0) 11/25/22 20:14 INR 1.1 (<1.2) 11/25/22 20:14 Abnormal lab findings: Abnormal Labs 11/25/22 11/25/22 11/25/22 20:10 20:14 20:14 WBC 20.7 H RDW 15.7 H Plt Count 103 L Neutrophils # (Manual) 13.66 H Monocytes # (Manual) 3.52 H APTT 21.3 L Sodium Carbon Dioxide BUN Creatinine Glucose POC Glucose (mg/dL) 237 H Calcium Creatine Kinase Total Protein Albumin TSH Free T4 Ur Specific [place] Urine Protein Urine Glucose (UA) Ur Leukocyte Esterase Urine Bacteria 11/25/22 11/25/22 11/25/22 20:14 21:48 23:54 WBC RDW Plt Count Neutrophils # (Manual) Monocytes # (Manual) APTT Sodium 127 L Carbon Dioxide 21 L BUN 29 H Creatinine 1.13 H Glucose 240 H POC Glucose (mg/dL) 233 H Calcium 6.6 L Creatine Kinase <20 L Total Protein 4.1 L Albumin 1.9 L TSH 70.800 H Free T4 0.07 L Ur Specific [place] Urine Protein Urine Glucose (UA) Ur Leukocyte Esterase Urine Bacteria 11/25/22 23:56 WBC RDW Plt Count Neutrophils # (Manual) Monocytes # (Manual) APTT Sodium Carbon Dioxide BUN Creatinine Glucose POC Glucose (mg/dL) Calcium Creatine Kinase Total Protein Albumin TSH Free T4 Ur Specific [place] 1.038 H Urine Protein Trace H Urine Glucose (UA) Trace H Ur Leukocyte Esterase Small H Urine Bacteria Rare H - Diagnostic Findings Chest x-ray: image reviewed Assessment and Plan Assessment: Acute CVA, status post TPA infusion, with improved right-sided hemiparesis and severe persistent dysphasia. Recurrent bilateral pleural effusions, status post Pleurx catheter insertion 10/19/2022. The effusions have been exudative in the past, however, most recent fluid analysis was transudative based on Light's criteria. Cytology has always been negative for malignancies. Acute kidney injury, possibly related to contrast induced ATN, improved Leukocytosis, doubt infectious etiology Thrombocytopenia, stable History of monoclonal B cell lymphocytosis, being followed outpatient by oncology Hyperlipidemia Essential hypertension Diabetes mellitus type 2, insulin-dependent Hypothyroidism, TSH was elevated at 70.8 and free T4 was low at 0.07 Ex-smoker Plan: Patient's medications, labs, chest x-ray reviewed Neuro checks per protocol Monitor for bleeding Obtain 24-hour post-TPA brain CT Continue high intensity statin Consult speech therapy Consult occupational and physical therapy Neurology has been consulted and is following Continue to drain Pleurx catheters every 48 hours On room air Restart home medications, including Synthroid Resume Levemir and start NovoLog ACHS to scale Protonix for GI prophylaxis We will continue to follow and make recommendations I have personally seen and examined the patient, performed the documentation and the assessment and plan as written. Number of minutes spent on the visit:20 This is a joint evaluation that was being down along with the nurse pr actitioner. Patient presented with symptoms of acute CVA. The patient received thrombolytics and currently she still having some difficulties in aphasia/expressive aphasia. Motor function is improvement in the right side although she states that there is still some asymmetry with some weakness on the right compared to the left. The patient otherwise is hemodynamically stable. The patient is to be seen by neurology. She has undergone recent drainage of the pleural fluid and chest x-ray for now. No signs of any respiratory distress and the patient is on room air oxygen. She continues to have increased lower extremity edema bilaterally. Her TSH is quite elevated at 70 with a low free T4 of 0.07. She has Timentin on Synthroid at a dose of 150 g on outpatient basis. Those will be adjusted. Speech pathology consultation. Neurology consultation. We'll continue to follow. We'll increase his Synthroid to 200 g on a daily basis. Will monitor free T4 and TSH Time with Patient: Greater than 30
[2022-11-26 06:17] LABS: HCT 43.4 % (34.0-46.0); MCH 27.7 pg (25.0-35.0); MCHC 32.3 g/dL (31.0-37.0); MCV 85.7 fL (80.0-100.0); Mean Platelet Volume 12.9; Platelet Count 130 k/uL (150-450); RBC 5.06 m/uL (3.80-5.40); RDW 15.7 % (11.5-15.5); WBC 22.6 k/uL (3.8-10.6)
[2022-11-26 06:34] LABS: ALT 17 U/L (4-34); AST 22 U/L (14-36); African American GFR (CKD) 71 (>60 ml/min/1.73 sqM); Albumin 2.2 g/dL (3.5-5.0); Alkaline Phosphatase 83 U/L (38-126); Blood Urea Nitrogen 29 mg/dL (7-17); Calcium 7.1 mg/dL (8.4-10.2); Carbon Dioxide 21 mmol/L (22-30); Glucose 148 mg/dL (74-99); Magnesium 1.6 mg/dL (1.6-2.3); Non-African American GFR(CKD) 62 (>60 ml/min/1.73 sqM); Phosphorus 4.8 mg/dL (2.5-4.5); Total Bilirubin 0.3 mg/dL (0.2-1.3); Total Protein 4.8 g/dL (6.3-8.2)
[2022-11-26 06:35] LABS: Band Neutrophils % 3 %; Lymphocytes # (M) 3.84 k/uL (1.0-4.8); Monocytes # (M) 3.62 k/uL (0-1.0); Neutrophils % (M) 64 %; Nucleated Red Blood Cells 0 /100 WBC (0-0); Total Cells Counted 100
[2022-11-26] MEDS: INSULIN ASPART (NovoLOG) 100 UNIT/ML VIAL SQ SCH ×4 (06:35→20:19)
[2022-11-26 06:36] LABS: Glucose,Whole Blood 110 mg/dL (70-110)
[2022-11-26 06:50] LABS: Anion Gap 6 mmol/L; Chloride 102 mmol/L (98-107); Potassium 4.4 mmol/L (3.5-5.1); Sodium 129 mmol/L (137-145)
[2022-11-26] MEDS ORDERED: Magnesium Replacement Protocol 1 EACH MISC MISCELLANE PRN (06:52)
[2022-11-26] MEDS: MAGNESIUM SULFATE-D5W PMX 1 GM in DEXTROSE/WATER 1 100ML.BAG IVPB SCH ×2 (06:57→08:18)
[2022-11-26] MEDS ORDERED: LEVOTHYROXINE 75 MCG TAB PO SCH (07:00)
[2022-11-26] MEDS ORDERED: SYMBICORT 160-4.5 MCG INHALER INHALATION SCH (08:00)
[2022-11-26] MEDS ORDERED: BUDESONIDE 0.5 MG/2 ML NEBU INHALATION SCH (08:00)
[2022-11-26] MEDS: PANTOPRAZOLE 40 MG/10 ML VIAL IV SCH (08:27)
[2022-11-26 11:46] LABS: Glucose,Whole Blood 128 mg/dL (70-110)
--- NOTE | 2022-11-26 14:17 | P.CNNES ---
History of Present Illness Consult date: 11/26/22 Requesting physician: Juan Harkins Reason for Consult: CVA, TPA History of Present Illness: Patient is a 77-year-old right-handed female, who was brought to the hospital by ambulance yesterday at 7:38 PM for acute onset of stroke symptoms. Patient says that she suddenly could not talk and developed right-sided weakness. As per EMS flow sheet, when they arrived, patient was sitting upright in the chair. Patient's states that patient began to "act weird" about 45 minutes to an hour prior to EMS arrival. Patient was noted to have right facial droop right extremity flaccidity and aphasia. Patient was alert, unable to answer questions with GCS of 13. Patient not on any blood thinners. No trauma. Patient's blood glucose was 331. Blood pressure 101/46, pulse rate 84, respirations 16, saturation 97%. Vital signs arrival blood pressure 121/69, pulse rate [address] head revealed no acute process. Small vessel ischemic disease. I personally reviewed CT head, and there is evidence of generalized cerebral atrophy, in particular dilation of the lateral ventricles as well as fourth ventricle, slightly out of proportion to the amount of cortical atrophy. EKG shows sinus rhythm. Chest x-ray showed bilateral thoracotomy tubes without evidence of pneumothorax. Low lung volumes with interstitial lung changes are similar to prior. Patient was evaluated by the ED staff, and her NIH stroke scale documented as 7. The case discussed with stroke neurologist, and patient received TPA. Patient has diabetes for 20 years, which she believes is controlled. She takes medications regularly. She does not take any antiplatelet medication at home. Patient has hyperlipidemia and hypertension. She was a light smoker for 30 years, quit at age 49. Denies any alcohol. At present patient says that she still feels weak on the right side, and her speech is about 75% back to baseline. Review of Systems Constitutional: Denies chills, Denies fever Eyes: denies blurred vision, denies diplopia, denies pain Ears: deny: decreased hearing, ear discharge Ears, nose, mouth and throat: Denies headache, Denies sore throat, Denies vertigo Cardiovascular: Denies chest pain, Denies shortness of breath Respiratory: Denies cough Gastrointestinal: Denies abdominal pain, Denies diarrhea, Denies nausea, Denies vomiting Genitourinary: Denies dysuria, Denies hematuria Musculoskeletal: Denies low back pain, Denies myalgias, Denies neck pain Integumentary: Denies pruritus, Denies rash Neurological: Reports as per HPI Psychiatric: Denies anxiety, Denies depression Endocrine: Reports fatigue, Denies weight change Hematologic/Lymphatic: Denies easy bleeding, Denies easy bruising Past Medical History Past Medical History: Heart Failure, Diabetes Mellitus, Hyperlipidemia, Hypertension, Thyroid Disorder Additional Past Medical History / Comment(s): left leg swells at end of day every day for about a year History of Any Multi-Drug Resistant Organisms: None Reported Past Surgical History: Cholecystectomy Additional Past Surgical History / Comment(s): cholecystectomy, cataract surgery Past Anesthesia/Blood Transfusion Reactions: No Reported Reaction Past Psychological History: No Psychological Hx Reported Smoking Status: Never smoker Past Alcohol Use History: Occasional Past Drug Use History: None Reported - Past Family History Father Family Medical History: Cancer, Prostate Disorder Additional Family Medical History / Comment(s): prostate CA Mother Additional Family Medical History / Comment(s): parkinsons Medications and Allergies Home Medications Medication Instructions Recorded Confirmed Type Simvastatin 40 mg PO HS 07/03/22 11/25/22 History Acetaminophen Tab [Tylenol] 650 mg PO Q6HR PRN tab 07/10/22 11/25/22 Rx Ferrous Sulfate [Iron (65 MG 325 mg PO DAILY 09/10/22 11/25/22 History Elemental)] Fluticasone/Umeclidin/Vilanter 1 puff INHALATION RT-DAILY 09/10/22 11/25/22 History [Trelegy Ellipta 200-62.5-25] Loratadine [Claritin] 10 mg PO DAILY 09/10/22 11/25/22 History Montelukast [Singulair] 10 mg PO DAILY 09/10/22 11/25/22 History Omeprazole 40 mg PO DAILY 09/10/22 11/25/22 History Ondansetron [Zofran] 4 mg PO Q6H PRN 09/10/22 11/25/22 History Ipratropium-Albuterol Nebulize 3 ml INHALATION RT-QID each 09/18/22 11/25/22 Rx [Duoneb 0.5 mg-3 mg/3 ml Soln] Calcium Carb-Vit D 500Mg-5Mcg 1 tab PO BID-W/MEALS 10/11/22 11/25/22 History [Oscal 500+D 5 Mcg (200 Iu)] Insulin Lispro See Protocol SQ ACHS PRN 10/11/22 11/25/22 History Levothyroxine Sodium [Synthroid] 150 mcg PO DAILY 10/11/22 11/25/22 History Budesonide [Pulmicort] 0.5 mg INHALATION RT-BID 90 Days 10/19/22 11/25/22 Rx #180 ml Dapagliflozin Propanediol [Farxiga] 5 mg PO DAILY 90 Days #90 tab 10/19/22 11/25/22 Rx Furosemide [Lasix] 40 mg PO BID@0900,1600 90 Days 10/19/22 11/25/22 Rx #180 tab Insulin Detemir (Levemir) [Levemir] 10 unit SQ HS each 10/19/22 11/25/22 Rx Losartan [Cozaar] 12.5 mg PO DAILY 90 Days #90 tab 10/19/22 11/25/22 Rx Allergies Allergy/AdvReac Type Severity Reaction Status Date / Time No Known Allergies Allergy Verified 11/25/22 20:55 Physical Examination - Vital Signs Vital Signs: Vital Signs Temp Pulse Pulse Resp BP Pulse Ox 11/26/22 09:30 75 22 111/50 100 11/26/22 09:00 78 17 112/44 97 11/26/22 08:33 97 11/26/22 08:30 74 21 112/58 90 L 11/26/22 08:00 97.5 F L 79 16 99/52 99 11/26/22 07:30 71 14 90/47 96 11/26/22 07:00 70 14 110/52 95 11/26/22 06:45 74 15 88/43 94 L 11/26/22 06:30 71 12 96/44 93 L 11/26/22 06:15 70 12 110/52 94 L 11/26/22 06:00 67 15 97/48 97 11/26/22 05:45 64 13 107/48 97 11/26/22 05:30 72 14 115/57 95 11/26/22 05:15 79 24 105/50 98 11/26/22 05:00 70 13 105/60 98 08/21/23 04:45 66 14 119/61 97 11/26/22 04:30 73 18 105/61 99 11/26/22 04:15 76 14 105/53 97 11/26/22 04:00 97.5 F L 74 14 104/48 97 11/26/22 03:45 67 14 106/52 93 L 11/26/22 03:30 69 13 100/47 99 11/26/22 03:15 69 13 103/49 97 11/26/22 03:00 70 12 106/54 99 11/26/22 02:45 70 15 100/49 100 11/26/22 02:30 71 13 107/55 98 11/26/22 02:15 76 19 122/84 97 11/26/22 02:00 75 11 L 105/57 98 11/26/22 01:45 73 16 112/55 100 11/26/22 01:30 75 15 109/59 99 11/26/22 01:15 79 18 117/56 99 11/26/22 01:00 80 23 109/51 97 11/26/22 00:45 68 14 97/52 97 11/26/22 00:30 70 12 105/53 98 11/26/22 00:15 70 14 108/54 98 11/26/22 00:00 97.9 F 74 16 108/56 98 11/25/22 23:45 79 16 105/59 99 11/25/22 23:30 76 19 103/53 99 11/25/22 23:15 75 18 106/57 100 11/25/22 23:00 80 15 107/56 98 11/25/22 22:50 80 15 107/56 98 11/25/22 22:40 82 20 108/50 95 11/25/22 22:30 82 18 89/75 96 11/25/22 22:20 79 17 89/75 95 11/25/22 22:10 82 23 111/66 96 11/25/22 22:00 97.9 F 81 19 108/66 96 11/25/22 21:29 85 16 111/57 100 11/25/22 21:14 97.5 F L 84 16 111/51 100 11/25/22 20:59 97.7 F 84 16 99/62 100 11/25/22 20:52 97.9 F 80 17 97 11/25/22 20:44 98.6 F 82 18 106/55 99 11/25/22 20:28 97.5 F L 83 16 95/58 100 11/25/22 19:39 86 18 121/69 98 Intake and Output 11/25/22 11/26/22 11/26/22 22:59 06:59 14:59 Intake Total 525 675 Output Total 100 250 110 Balance -100 275 565 Intake: IV 525 425 Magnesium Sulfate-D5w Pmx 200 1 gm In Dextrose/Water 1 100ml.bag @ 100 mls/hr IVPB Q1H [facility] Rx#: [id number] Sodium Chloride 0.9% 1, 525 225 000 ml @ 10 mls/hr IV . Q24H [facility] Rx#:[id number] Oral 250 Output: Urine 100 250 110 Other: Voiding Method External Catheter External Catheter Weight 58 kg 52.7 kg Patient is an elderly female, somewhat thin built, in no acute distress. Patient has a flat affect. Patient is alert awake oriented to time place and person. Speech is mildly dysarthric. Patient can name 2 out of 3 objects presented including pen, knuckles and for ear lobe patient said "ear loop". Slight paraphasic errors. He should not able to repeat sentences. She has good comprehension, able to point to the window and the door appropriately. Attention, concentration and fund of knowledge is adequate. On cranial nerve examination, pupils are equal, round and reacting to light, visual silverman are full on confrontation, with no neglect on double simultaneous stimulation Extraocular muscles are intact with no nystagmus. Face is symmetric, tongue protrudes to the midline. Palatal elevation and sensation normal, hearing and shoulder shrug normal, facial sensation normal. On muscle strength testing, there is right pronator drift. The strength is mostly normal in the arms and legs, except her right deltoid is 5-, whereas normal on the left, bilateral hip flexion 4-. Ankle dorsiflexion are normal bilaterally. Deep tendon reflexes are symmetric, very hypoactive, trace at the biceps, absent at the brachioradialis, knees and ankles, plantars flat. Sensory to touch is equal with no neglect on double simultaneous stimulation. Cerebellar function showed no ataxia for [id number]-[id number] testing. No ataxia for [id number] testing on either side. Tone and bulk of muscles normal. Gait deferred.. On general examination, there is no carotid bruit or murmur, S1-S2 audible. Chest is clear on consultation. Abdomen is soft nontender. No organomegaly, bowel sounds present. Patient has moderate peripheral edema. Results - Laboratory Findings CBC and BMP: 11/26/22 05:47 11/26/22 05:47 Abnormal Lab Findings: Abnormal Labs 11/25/22 11/25/22 11/25/22 20:10 20:14 20:14 WBC 20.7 H RDW 15.7 H Plt Count 103 L Neutrophils # (Manual) 13.66 H Monocytes # (Manual) 3.52 H APTT 21.3 L Sodium Carbon Dioxide BUN Creatinine Glucose POC Glucose (mg/dL) 237 H Hemoglobin A1c Calcium Phosphorus Creatine Kinase Total Protein Albumin TSH Free T4 Ur Specific [place] Urine Protein Urine Glucose (UA) Ur Leukocyte Esterase Urine Bacteria 11/25/22 11/25/22 11/25/22 20:14 21:48 23:54 WBC RDW Plt Count Neutrophils # (Manual) Monocytes # (Manual) APTT Sodium 127 L Carbon Dioxide 21 L BUN 29 H Creatinine 1.13 H Glucose 240 H POC Glucose (mg/dL) 233 H Hemoglobin A1c Calcium 6.6 L Phosphorus Creatine Kinase <20 L Total Protein 4.1 L Albumin 1.9 L TSH 70.800 H Free T4 0.07 L Ur Specific [place] Urine Protein Urine Glucose (UA) Ur Leukocyte Esterase Urine Bacteria 11/25/22 11/26/22 11/26/22 23:56 05:47 05:47 WBC 22.6 H RDW 15.7 H Plt Count 130 L Neutrophils # (Manual) 15.10 H Monocytes # (Manual) 3.62 H APTT Sodium 129 L Carbon Dioxide 21 L BUN 29 H Creatinine Glucose 148 H POC Glucose (mg/dL) Hemoglobin A1c Calcium 7.1 L Phosphorus 4.8 H Creatine Kinase Total Protein 4.8 L Albumin 2.2 L TSH Free T4 Ur Specific [place] 1.038 H Urine Protein Trace H Urine Glucose (UA) Trace H Ur Leukocyte Esterase Small H Urine Bacteria Rare H 11/26/22 05:47 WBC RDW Plt Count Neutrophils # (Manual) Monocytes # (Manual) APTT Sodium Carbon Dioxide BUN Creatinine Glucose POC Glucose (mg/dL) Hemoglobin A1c 12.0 H Calcium Phosphorus Creatine Kinase Total Protein Albumin TSH Free T4 Ur Specific [place] Urine Protein Urine Glucose (UA) Ur Leukocyte Esterase Urine Bacteria Assessment and Plan Assessment: * Acute ischemic stroke, manifesting with aphasia, right hemiparesis, patient is status post TPA. Her NIH stroke scale documented ER was 7, but now it is 3 (related to mild dysarthria, mild aphasia and right pronator drift). * Diabetes poorly controlled * Heart failure * Hypothyroidism * Hypertension * Hyperlipidemia * Peripheral edema * Recurrent pleural effusion * History of monoclonal B-cell lymphocytosis * X tobacco use Plan: * Patient has received TPA. Patient is doing better. * MRI of the brain without contrast, evaluate for acute CVA * 2-D echo performed 10/12/2022 revealed left ventricle hypertrophy with preserved systolic function with EF 60-65%. Normal left atrial size. Large pleural effusion with echogenic material. Thickened pericardium, minimal to no effusion. * CTA head and neck showed: No evidence of dissection of the cervical internal carotid arteries or vertebral arteries or any evidence of significant stenosis of the carotid bifurcations. No evidence of intracranial high-grade stenosis or intracranial aneurysm. Bilateral thoracotomy tubes with small bilateral pleural effusion. * Fasting a.m. lipid panel * Hemoglobin A1c 12.0 consistent with poorly controlled diabetes. Recommend optimize control of diabetes to target A1c < 7.0 * TSH 70.8, free T4 0.07. Internal medicine to address abnormal thyroid functions. Patient was taking levothyroxine 150 g. Patient states she is compliant with her medications. * Permissive hypertension for next 24-48 hours, however keep blood pressure < 180/105 * No antiplatelets or anticoagulants for 24 hours post-TPA. * Close neuro checks as per protocol. * Telemetry monitoring rule out any arrhythmia * PT, OT, speech therapy. * Other medical management as per IM and other specialties. * DVT prophylaxis: Heparin 5000 units subcu every 8 hours 24 hours post-TPA. * Neurology will continue ot follow. Thank you for the consult.
[2022-11-26 17:36] LABS: Glucose,Whole Blood 93 mg/dL (70-110)
[2022-11-26] MEDS: BUDESONIDE 0.5 MG/2 ML NEBU INHALATION SCH (19:29)
[2022-11-26 20:14] LABS: Glucose,Whole Blood 134 mg/dL (70-110)
[2022-11-26] MEDS: INSULIN DETEMIR (LEVEMIR) 100 UNIT/ML SYR SQ SCH (20:15)
[2022-11-26] MEDS: ATORVASTATIN 40 MG TAB PO SCH (20:15)
--- NOTE | 2022-11-26 20:25 | CT ---
EXAMINATION TYPE: CT brain wo con CT DLP: 1151.4 mGycm, Automated exposure control for dose reduction was used. DATE OF EXAM: 11/26/2022 8:05 PM COMPARISON: One day prior CLINICAL INDICATION:Female, 77 years old with history of post TPA transfusion, 24 hr post TPA. TECHNIQUE: Brain: Axial CT images of the brain were obtained with coronal and sagittal reformats created and rev iewed. Contrast used: None. Oral contrast used: None. FINDINGS: Brain: Extra-axial spaces: No abnormal extra-axial fluid collections. Ventricular system: Dilatation in proportion to cerebral atrophy. Cerebral parenchyma: Cerebral atrophy. No acute intraparenchymal hemorrhage or mass effect. The pederson -white junction is well differentiated. Cerebellum: Unremarkable. Mass effect: No evidence of midline shift. Intracranial vasculature: Atherosclerotic calcifications of the intracranial vessels. Soft tissues: Normal. Calvarium/osseous structures: No depressed skull fracture. Paranasal sinuses and mastoid air cells: Mild scattered paranasal sinus disease. Visualized orbits: Bilaterally aphakia IMPRESSION: 1. No acute intracranial process. 2. Nonspecific white matter changes, likely secondary to chronic small vessel ischemic disease. 2. Nonspecific white matter changes, likely secondary to chronic small vessel ischemic disease.
[2022-11-26] MEDS ORDERED: ATORVASTATIN 40 MG TAB PO SCH (21:00)
[2022-11-26] MEDS: SODIUM CHLORIDE 0.9% 1,000 ML IV SCH (23:29)
[2022-11-27] MEDS ORDERED: ASPIRIN 325 MG TAB PO STA (00:20)
--- NOTE | 2022-11-27 04:06 | HP ---
HISTORY AND PHYSICAL HISTORY OF PRESENT ILLNESS: The patient came in the hospital with some dysarthria and some right-sided weakness. She was given tPA in the emergency room for possible stroke syndrome. She was hypotensive. She had acute Stroke Scale for 4 per ER doctor on the phone. She was acting weird 45 minutes prior to her admission. CAT scan and CT are negative. EKG is negative. Chest x-ray shows bilateral thoracotomy tubes. She was hypotensive and we gave her fluids in the ER. Due to lactic acidosis, we gave her more fluids overnight. Her blood pressure was more stable at this point. She is not on any antiplatelet medications apparently. She has severe plasmacytosis and pleural effusions, pulmonary hypertension, COPD, status post COVID, hypothyroidism. FAMILY HISTORY: Cancer, prostate disorder. Mother with Parkinson's. PAST SURGICAL HISTORY: Cholecystectomy, cataract surgery, pleurocentesis tubes. FAMILY HISTORY: Reviewed. MEDICATIONS: Reviewed. PHYSICAL EXAMINATION: VITAL SIGNS: Current blood pressure is better 111/50, pulse 75, and respiratory rate 18 to 22, is on 2 L oxygen, levels are in the high 90s now. GENERAL: She has flat affect. She is alert and oriented to person, place. Mild dysarthric. Does know 2/3 objects per Neurology. CARDIOVASCULAR: S1, S2. LUNGS: Decreased breath sounds x4. GI: Soft. NEUROLOGIC: Please see Neurology note. She is mildly dysarthric. She can move 4 extremities. LABORATORY DATA: White count is high with a left shift, sodium 129, potassium 4.4, BUN is 29, creatinine 0.9. TSH is elevated at 70, T4 is low at 0.07. Sugars in mid 200s. Urine shows high specific gravity, high protein, high glucose, small leukocyte esterase. ASSESSMENT: Acute ischemic stroke with some mild aphasia with right hemiparesis, status post tPA; diabetes mellitus; hypothyroidism; CHF; hypertension; dyslipidemia; plasmacytosis; COPD; pulmonary edema. She is on tPA. Will wait for the MRI of the brain, has been ordered. Continue her home medications. Breathing treatments, cholesterol pills, etc. Pleural effusion, is being seen by Dr. Rodgers. which we normally see with a stroke. Continue current treatments. Prognosis guarded. MMODL / IJN: [id number] /
[2022-11-27] MEDS: LEVOTHYROXINE 100 MCG TAB PO SCH (06:31)
[2022-11-27 06:35] LABS: Glucose,Whole Blood 119 mg/dL (70-110)
[2022-11-27] MEDS: INSULIN ASPART (NovoLOG) 100 UNIT/ML VIAL SQ SCH ×4 (06:43→20:12)
[2022-11-27 07:04] LABS: African American GFR (CKD) >90 (>60 ml/min/1.73 sqM); Anion Gap 5 mmol/L; Blood Urea Nitrogen 23 mg/dL (7-17); Calcium 7.1 mg/dL (8.4-10.2); Carbon Dioxide 21 mmol/L (22-30); Chloride 102 mmol/L (98-107); Glucose 123 mg/dL (74-99); Magnesium 1.7 mg/dL (1.6-2.3); Non-African American GFR(CKD) 81 (>60 ml/min/1.73 sqM); Potassium 4.8 mmol/L (3.5-5.1); Sodium 128 mmol/L (137-145)
[2022-11-27 07:17] LABS: HCT 40.9 % (34.0-46.0); HGB 13.4 gm/dL (11.4-16.0); Hypochromasia Slight; MCH 28.6 pg (25.0-35.0); MCHC 32.9 g/dL (31.0-37.0); MCV 86.8 fL (80.0-100.0); Platelet Count 132 k/uL (150-450); RBC 4.71 m/uL (3.80-5.40); RDW 15.8 % (11.5-15.5); WBC 20.4 k/uL (3.8-10.6)
[2022-11-27] MEDS ORDERED: MAGNESIUM SULFATE-D5W PMX 1 GM in DEXTROSE/WATER 1 100ML.BAG IVPB ONE (07:30)
[2022-11-27] MEDS: PANTOPRAZOLE 40 MG/10 ML VIAL IV SCH (08:09)
[2022-11-27] MEDS: BUDESONIDE 0.5 MG/2 ML NEBU INHALATION SCH ×2 (08:46→19:33)
[2022-11-27] MEDS: IPRATROPIUM-ALBUTEROL 3 ML NEB INHALATION PRN ×3 (08:46→19:33)
[2022-11-27] MEDS ORDERED: ASPIRIN 325 MG TAB PO SCH (09:00)
[2022-11-27 09:43] LABS: Lymphocytes # (M) 1.22 k/uL (1.0-4.8); Monocytes # (M) 2.65 k/uL (0-1.0); Neutrophils # (M) 16.32 k/uL (1.3-7.7); Neutrophils % (M) 80 %; Nucleated Red Blood Cells 0 /100 WBC (0-0); Total Cells Counted 100
--- NOTE | 2022-11-27 09:50 | P.PN ---
Subjective Progress Note Date: 11/27/22 I am seeing this patient in new consultation today 11/26/2022 in the intensive care unit for an acute CVA status post TPA infusion. Patient is a 77-year-old female with past medical history significant for diabetes mellitus, hyperlipidemia, hypertension, hypothyroidism, monoclonal B-cell lymphocytosis, and recurrent pleural effusions. Her primary care provider is Dr. Steve Barron. She does follow in the office with Dr. Rodgers for recurrent pleural effusions. Patient recently had a hospital admission for recurrent bilateral pleural effusions, and is status post bilateral Pleurx catheter insertion on 10/19/2022, the patient was discharged home the following day. Patient's most recent fluid analysis was transudative based on Light's criteria, and cytology has always been negative. Patient presented to the emergency room last night after her called EMS immediately after strokelike symptoms presented. The patient was initially aphasic and had significant right-sided hemiparesis. Initial NIH was recorded at 7. In the emergency room, the patient was administered TPA. She has had improvement in her right-sided weakness and some modest improvement in her dysphasia. Her speech is still significantly impaired, and it is difficult to obtain HPI from the patient. Brain CT did not show any acute intracranial abnormalities. Brain CTA did not show any evidence of intracranial or carotid aneurysm, dissection or significant stenosis. Patient is currently sitting up in bed, on room air, in no acute distress. She is frustrated with her expressive dysphasia. Her right-sided hemiparesis appears to have mostly resolved. She may have some minimal right-sided facial weakness. Patient has no evidence of post-TPA bleeding. There is a 24 hr follow-up brain CT ordered. CBC shows a WBC count of 20.7, hemoglobin 11.9, hematocrit 36.9, platelets 103. BMP shows sodium 127, potassium 4.6, chloride 100, serum bicarbonate 21, BUN 29, creatinine 1.13, blood glucose 240. Normal saline is currently infusing at 75 mL per hour. Patient does have 2 Pleurx catheters, with surrounding insertion sites clean and dry. She reportedly drains the catheters every 48 hours. Chest x-ray redemonstrates the bilateral thoracotomy tubes without evidence of pneumothorax and trace to small bilateral pleural effusions. Patient is hemodynamically stable at this time. On 11/27/2022, the patient is clinically stable. She is post CVA. Her speech is a bit delayed that she is able to alter the appropriate words. No new onset focal neurological deficits. The patient received normal at 6 and a repeat CAT scan of the brain was done yesterday at around 8 PM and there was no evidence of any acute process. There is no evidence of any bleeding. The patient was started on oral aspirin for now. Neurology is on the case. Her vitals are stable. She is on 2 L of oxygen by nasal cannula with a pulse ox of 98%. She is hemodynamically stable. Blood pressure is soft. There is no significant hypotension. Her current cardiac rhythm is sinus and the patient is adequately controlled in terms of her rate. The patient was also started on statins and the patient is currently on Lipitor 80 mg by mouth daily. She is on Levemir insulin 10 units in addition to NovoLog sinus Coverage. IV fluids are currently at KVO. She is tolerating diet. No other significant events otherwise for now. Neurology is on the case. The patient was seen and evaluated by neurology yesterday. As mentioned, CTA of the head and the neck showed no evidence of any dissection or carotid artery disease. No evidence of any high-grade stenosis. Objective - Vital Signs Vital signs: Vital Signs Temp 97.8 F 11/27/22 08:00 Pulse 79 11/27/22 09:00 Resp 20 11/27/22 09:00 BP 105/53 11/27/22 09:00 Pulse Ox 98 11/27/22 09:00 FiO2 Intake & Output 11/26/22 11/27/22 11/27/22 18:59 06:59 18:59 Intake Total 2265 130 100 Output Total 120 300 Balance 2145 -170 100 Weight 52.7 kg 52.2 kg Intake: IV 515 130 100 Magnesium Sulfate-D5w Pmx 200 100 1 gm In Dextrose/Water 1 100ml.bag @ 100 mls/hr IVPB Q1H [facility] Rx#: [id number] Sodium Chloride 0.9% 1, 315 130 000 ml @ 10 mls/hr IV . Q24H [facility] Rx#:[id number] Oral 1750 Output: Urine 120 300 Other: Voiding Method External Catheter External Catheter # Voids 1 - Exam GENERAL EXAM: Alert, 77-year-old white female appearing stated age, comfortable in no apparent distress., The patient is on 2 L of oxygen with a pulse ox of 99% HEAD: Normocephalic and atraumatic EYES: Normal reaction of pupils, equal size. NOSE: Clear with pink turbinates. THROAT: No erythema or exudates. NECK: No masses, no JVD. CHEST: No chest wall deformity. Bilateral Pleurx catheters LUNGS: Equal air entry with no crackles, wheeze, rhonchi or dullness. On room air. No conversational dyspnea or accessory muscle use.. CVS: S1 and S2 normal with no audible murmur, regular rhythm. No extra heart sounds ABDOMEN: No hepatosplenomegaly, active bowel sounds, no guarding or rigidity. SPINE: No scoliosis or deformity SKIN: No rashes CENTRAL NERVOUS SYSTEM: Patient is alert. Bilateral upper extremities 4 out of 5 strength, bilateral lower extremities 3 out of 5 strength, there is minimal right-sided facial weakness, no identified visual disturbances, no gaze palsy, follows directions appropriately, no ataxia out of proportion to weakness, no sensory loss, no inattention, patient exhibits severe dysphasia EXTREMITIES: There is 3+ pitting bilateral lower extremity edema. No clubbing, or cyanosis. Peripheral pulses are intact. - Labs CBC & Chem 7: 11/27/22 06:35 11/27/22 06:35 Labs: Abnormal Lab Results - Last 24 Hours (Table) 11/25/22 11/26/22 11/26/22 Range/Units 23:54 11:43 20:13 WBC (3.8-10.6) k/uL RDW (11.5-15.5) % Plt Count (150-450) k/uL Neutrophils # (Manual) (1.3-7.7) k/uL Monocytes # (Manual) (0-1.0) k/uL Sodium (137-145) mmol/L Carbon Dioxide (22-30) mmol/L BUN (7-17) mg/dL Glucose (74-99) mg/dL POC Glucose (mg/dL) 128 H 134 H (70-110) mg/dL Calcium (8.4-10.2) mg/dL Procalcitonin 0.38 H (0.02-0.09) ng/mL 11/27/22 11/27/22 11/27/22 Range/Units 06:33 06:35 06:35 WBC 20.4 H (3.8-10.6) k/uL RDW 15.8 H (11.5-15.5) % Plt Count 132 L (150-450) k/uL Neutrophils # (Manual) 16.32 H (1.3-7.7) k/uL Monocytes # (Manual) 2.65 H (0-1.0) k/uL Sodium 128 L (137-145) mmol/L Carbon Dioxide 21 L (22-30) mmol/L BUN 23 H (7-17) mg/dL Glucose 123 H (74-99) mg/dL POC Glucose (mg/dL) 119 H (70-110) mg/dL Calcium 7.1 L (8.4-10.2) mg/dL Procalcitonin (0.02-0.09) ng/mL Assessment and Plan Assessment: Acute CVA, status post TPA infusion, with improved right-sided hemiparesis and severe persistent dysphasia. Speech is improved since yesterday. No new focal neurological deficits. Awaiting MRI of the brain. CPR currently has a neck was negative. The patient is currently on aspirin. Recurrent bilateral pleural effusions, status post Pleurx catheter insertion 10/19/2022. The effusions have been exudative in the past, however, most recent fluid analysis was transudative based on Light's criteria. Cytology has always been negative for malignancies. Acute kidney injury, possibly related to contrast induced ATN, improved Leukocytosis, doubt infectious etiology Thrombocytopenia, stable History of monoclonal B cell lymphocytosis, being followed outpatient by oncology Hyperlipidemia Essential hypertension Diabetes mellitus type 2, insulin-dependent Hypothyroidism, TSH was elevated at 70.8 and free T4 was low at 0.07 Ex-smoker Plan: MRI of the brain today Continue aspirin No focal neurological deficits Continue Lipitor 80 mg by mouth daily Able to swallow Continue draining the Pleurx catheter every 48 hours and the patient is currently on 2 L of oxygen by nasal cannula without any signs of any respiratory distress Synthroid doses was adjusted The patient is currently on Levemir insulin. Note that her HbA1c was quite elevated. Her Levemir is currently at 10 units with NovoLog scale coverage. We'll continue to follow.
[2022-11-27 12:10] LABS: Glucose,Whole Blood 257 mg/dL (70-110)
--- NOTE | 2022-11-27 14:54 | MR ---
EXAMINATION TYPE: MR brain wo con DATE OF EXAM: 11/27/2022 2:33 PM COMPARISON: CT brain 11/26/2022, 11/25/2022, CTA head neck 11/25/2022. CLINICAL INDICATION:Female, 77 years old with history of Acute CVA, status post TPA; PHH, TECHNIQUE: Multi planar, multi sequence imaging was performed through the brain. No gadolinium was gi reese. FINDINGS: Foci of restricted diffusion identified within the left frontal lobe, left occipital lobe, and left p arietal lobe. There is a serpiginous region of low FLAIR signal with surrounding hyperintense FLAIR s ignal in the left parietal/frontal region measuring 2.8 x 2.0 cm (series 501, image 18). There is cor responding susceptibility artifact consistent with microhemorrhage in this region. There is some rest ricted diffusion in this region. The pederson-white junctions, ventricular system, and cisterns appear unremarkable. Patchy areas of high T2 signal intensity are seen within the periventricular and subcortical white matter. Midline struct ures show no abnormality. The bone marrow signal is within normal limits. The paranasal sinuses are unremarkable. Bilateral aph camron. IMPRESSION: 1. Foci of acute/subacute ischemia within the left frontal lobe, left parietal lobe, and left occipit al lobe. 2. Left parietal/frontal region of serpiginous low FLAIR signal with surrounding hyperintense FLAIR s ignal and susceptibility artifact suggests cortical laminar necrosis. 3. Nonspecific white matter changes, likely secondary to small vessel ischemic disease.
[2022-11-27 16:47] LABS: Glucose,Whole Blood 146 mg/dL (70-110)
[2022-11-27 20:03] LABS: Glucose,Whole Blood 169 mg/dL (70-110)
[2022-11-27] MEDS: ATORVASTATIN 40 MG TAB PO SCH (20:12)
[2022-11-27] MEDS: INSULIN DETEMIR (LEVEMIR) 100 UNIT/ML SYR SQ SCH (20:12)
[2022-11-28] MEDS: SODIUM CHLORIDE 0.9% 1,000 ML IV SCH (00:36)
--- NOTE | 2022-11-28 00:56 | PN ---
PROGRESS NOTE SUBJECTIVE: Doing better with expressive aphasia today. She is talking good and her thought felt better. She is up moving around. She is getting on her own, walking around, from the chair to the bed okay. She is back on her home medications. OBJECTIVE: VITAL SIGNS: Temperature 97.5, 96% on 2 L, blood pressure is 99/53 to 104/51, respiratory rate 15 to 23, pulse 79 to 80. GI: Soft. CARDIOVASCULAR: S1, S2. LUNGS: Decreased breath sounds x4. MRI is reviewed. Micro ischemia from 3 different years. Acute micro ischemia, CVA, most likely due to noncompliance with home medications. Continue current treatment. She is back on all her home meds. She is doing better at this time. Discussed glucose control at home and medications at home for that as well as her other medications. She continues PT OT. She is much improved. All 4 extremities moved. She is able to swallow, talk. Her garbled speech has gone. Expressive aphasia is almost better. Prognosis is good. She keeps getting better. Please see further orders. MMODL / IJN: [id number] /
[2022-11-28 05:16] LABS: African American GFR (CKD) >90 (>60 ml/min/1.73 sqM); Anion Gap 6 mmol/L; Blood Urea Nitrogen 19 mg/dL (7-17); Calcium 6.9 mg/dL (8.4-10.2); Carbon Dioxide 21 mmol/L (22-30); Chloride 102 mmol/L (98-107); Glucose 207 mg/dL (74-99); Magnesium 1.8 mg/dL (1.6-2.3); Non-African American GFR(CKD) 85 (>60 ml/min/1.73 sqM); Potassium 4.1 mmol/L (3.5-5.1); Sodium 129 mmol/L (137-145)
[2022-11-28 05:17] LABS: HCT 41.6 % (34.0-46.0); HGB 13.5 gm/dL (11.4-16.0); MCH 27.7 pg (25.0-35.0); MCHC 32.5 g/dL (31.0-37.0); MCV 85.2 fL (80.0-100.0); Mean Platelet Volume 13.3; RBC 4.88 m/uL (3.80-5.40); RDW 15.7 % (11.5-15.5); WBC 19.4 k/uL (3.8-10.6)
[2022-11-28] MEDS ORDERED: MAGNESIUM SULFATE-D5W PMX 1 GM in DEXTROSE/WATER 1 100ML.BAG IVPB ONE (05:24)
[2022-11-28] MEDS: LEVOTHYROXINE 100 MCG TAB PO SCH (06:18)
[2022-11-28 06:29] LABS: Glucose,Whole Blood 168 mg/dL (70-110)
[2022-11-28] MEDS: INSULIN ASPART (NovoLOG) 100 UNIT/ML VIAL SQ SCH ×4 (06:30→21:19)
[2022-11-28 07:26] LABS: Lymphocytes # (M) 1.94 k/uL (1.0-4.8); Neutrophils # (M) 14.36 k/uL (1.3-7.7); Neutrophils % (M) 74 %; Nucleated Red Blood Cells 0 /100 WBC (0-0); Total Cells Counted 100
[2022-11-28 07:27] LABS: Large Platelets Present
[2022-11-28 07:28] LABS: Platelet Count 113 k/uL (150-450)
[2022-11-28] MEDS: BUDESONIDE 0.5 MG/2 ML NEBU INHALATION SCH ×2 (07:41→20:29)
--- NOTE | 2022-11-28 08:31 | P.PN ---
Subjective Progress Note Date: 11/27/22 Patient was seen for a follow-up. Patient denies any headache or dizziness. Patient states she is feeling better. No new neurological symptoms. Objective - Vital Signs Vital signs: Vital Signs Temp 97.5 F L 11/27/22 15:00 Pulse 80 11/27/22 19:42 Resp 20 11/27/22 18:00 BP 98/48 11/27/22 18:00 Pulse Ox 94 L 11/27/22 16:30 FiO2 Intake & Output 11/27/22 11/27/22 11/28/22 06:59 18:59 06:59 Intake Total 130 170 30 Output Total 300 2075 Balance -170 -1905 30 Weight 52.2 kg Intake: IV 130 170 30 Magnesium Sulfate-D5w Pmx 100 1 gm In Dextrose/Water 1 100ml.bag @ 100 mls/hr IVPB Q1H [facility] Rx#: [id number] Sodium Chloride 0.9% 1, 130 70 30 000 ml @ 10 mls/hr IV . Q24H [facility] Rx#:[id number] Output: Drainage 1950 Left Abdomen/Pleurex 950 Right Abdomen/Pleurex 1000 Urine 300 125 Other: Voiding Method External Catheter External Catheter # Voids 1 - Exam Patient's mental status is normal. Patient has mild dysarthria. Her repetition is improved. She still has significant paraphasic errors, and some anomia. Patient says "laker" for knuckles, and "ear robes" for earlobes. She is able to name button. She can follow directions very well. Intact comprehension. Cranial nerves are normal. Visual silverman are full. On muscle strength testing, patient has right pronation, no drift. The strength is normal. Sensory to touch is equal. No ataxia for [id number] testing. - Labs CBC & Chem 7: 11/28/22 04:49 11/28/22 04:49 Labs: Abnormal Lab Results - Last 24 Hours (Table) 11/27/22 11/27/22 11/27/22 Range/Units 06:33 06:35 06:35 WBC 20.4 H (3.8-10.6) k/uL RDW 15.8 H (11.5-15.5) % Plt Count 132 L (150-450) k/uL Neutrophils # (Manual) 16.32 H (1.3-7.7) k/uL Monocytes # (Manual) 2.65 H (0-1.0) k/uL Sodium 128 L (137-145) mmol/L Carbon Dioxide 21 L (22-30) mmol/L BUN 23 H (7-17) mg/dL Glucose 123 H (74-99) mg/dL POC Glucose (mg/dL) 119 H (70-110) mg/dL Calcium 7.1 L (8.4-10.2) mg/dL 11/27/22 11/27/22 11/27/22 Range/Units 12:09 16:46 20:01 WBC (3.8-10.6) k/uL RDW (11.5-15.5) % Plt Count (150-450) k/uL Neutrophils # (Manual) (1.3-7.7) k/uL Monocytes # (Manual) (0-1.0) k/uL Sodium (137-145) mmol/L Carbon Dioxide (22-30) mmol/L BUN (7-17) mg/dL Glucose (74-99) mg/dL POC Glucose (mg/dL) 257 H 146 H 169 H (70-110) mg/dL Calcium (8.4-10.2) mg/dL Microbiology - Last 24 Hours (Table) 11/25/22 23:56 Urine Culture - Final Urine,Voided Assessment and Plan Assessment: * Acute ischemic stroke involving the left frontal, parietal and occipital lobes, manifesting with aphasia, right hemiparesis, patient is status post TPA. Her NIH stroke scale documented ER was 7, but now it is 3 (related to mild dysarthria, mild aphasia and right pronator drift). * Diabetes poorly controlled * Heart failure * Hypothyroidism * Hypertension * Hyperlipidemia * Peripheral edema * Recurrent pleural effusion * History of monoclonal B-cell lymphocytosis * X tobacco use Plan: * Patient has received TPA. Patient is doing better. * MRI of the brain without contrast revealed foci of acute/subacute ischemia within the left frontal lobe, left parietal lobe and left occipital lobe. Left parietal/frontal region of serpiginous low FLAIR signal with surrounding hyperintense FLAIR signal and susceptibility artifact suggest cortical laminar necrosis. I personally reviewed MRI, agree with the findings. * 2-D echo performed 10/12/2022 revealed left ventricle hypertrophy with preserved systolic function with EF 60-65%. Normal left atrial size. Large pleural effusion with echogenic material. Thickened pericardium, minimal to no effusion. * CTA head and neck showed: No evidence of dissection of the cervical internal carotid arteries or vertebral arteries or any evidence of significant stenosis of the carotid bifurcations. No evidence of intracranial high-grade stenosis or intracranial aneurysm. Bilateral thoracotomy tubes with small bilateral pleural effusion. * Fasting a.m. lipid panel pending * Hemoglobin A1c 12.0 consistent with poorly controlled diabetes. Recommend optimize control of diabetes to target A1c < 7.0 * TSH 70.8, free T4 0.07. Internal medicine to address abnormal thyroid functions. Patient was taking levothyroxine 150 g. Her dose increased to 200 g. * Optimize control of blood pressure to normotensive levels. * Patient started on aspirin 325 mg. Based upon the results of MRI, patient is high risk for hemorrhagic conversion, therefore will not give DAPT. We will decrease aspirin to 81 mg daily. * Close neuro checks as per protocol. * Telemetry monitoring rule out any arrhythmia * PT, OT, speech therapy. * Other medical management as per IM and other specialties. * DVT prophylaxis: Lovenox 40 mg subcu daily
[2022-11-28] MEDS: ASPIRIN 81 MG PO SCH ×2 (09:24→09:53)
[2022-11-28] MEDS: PANTOPRAZOLE 40 MG/10 ML VIAL IV SCH (09:24)
[2022-11-28] MEDS: ENOXAPARIN 40 MG/0.4 ML SYRINGE SQ SCH ×2 (09:24→10:12)
--- NOTE | 2022-11-28 09:30 | P.PN ---
Subjective Progress Note Date: 11/28/22 I am seeing this patient in new consultation today 11/26/2022 in the intensive care unit for an acute CVA status post TPA infusion. Patient is a 77-year-old female with past medical history significant for diabetes mellitus, hyperlipidemia, hypertension, hypothyroidism, monoclonal B-cell lymphocytosis, and recurrent pleural effusions. Her primary care provider is Dr. Steve Barron. She does follow in the office with Dr. Rodgers for recurrent pleural effusions. Patient recently had a hospital admission for recurrent bilateral pleural effusions, and is status post bilateral Pleurx catheter insertion on 10/19/2022, the patient was discharged home the following day. Patient's most recent fluid analysis was transudative based on Light's criteria, and cytology has always been negative. Patient presented to the emergency room last night after her called EMS immediately after strokelike symptoms presented. The patient was initially aphasic and had significant right-sided hemiparesis. Initial NIH was recorded at 7. In the emergency room, the patient was administered TPA. She has had improvement in her right-sided weakness and some modest improvement in her dysphasia. Her speech is still significantly impaired, and it is difficult to obtain HPI from the patient. Brain CT did not show any acute intracranial abnormalities. Brain CTA did not show any evidence of intracranial or carotid aneurysm, dissection or significant stenosis. Patient is currently sitting up in bed, on room air, in no acute distress. She is frustrated with her expressive dysphasia. Her right-sided hemiparesis appears to have mostly resolved. She may have some minimal right-sided facial weakness. Patient has no evidence of post-TPA bleeding. There is a 24 hr follow-up brain CT ordered. CBC shows a WBC count of 20.7, hemoglobin 11.9, hematocrit 36.9, platelets 103. BMP shows sodium 127, potassium 4.6, chloride 100, serum bicarbonate 21, BUN 29, creatinine 1.13, blood glucose 240. Normal saline is currently infusing at 75 mL per hour. Patient does have 2 Pleurx catheters, with surrounding insertion sites clean and dry. She reportedly drains the catheters every 48 hours. Chest x-ray redemonstrates the bilateral thoracotomy tubes without evidence of pneumothorax and trace to small bilateral pleural effusions. Patient is hemodynamically stable at this time. On 11/27/2022, the patient is clinically stable. She is post CVA. Her speech is a bit delayed that she is able to alter the appropriate words. No new onset focal neurological deficits. The patient received normal at 6 and a repeat CAT scan of the brain was done yesterday at around 8 PM and there was no evidence of any acute process. There is no evidence of any bleeding. The patient was started on oral aspirin for now. Neurology is on the case. Her vitals are stable. She is on 2 L of oxygen by nasal cannula with a pulse ox of 98%. She is hemodynamically stable. Blood pressure is soft. There is no significant hypotension. Her current cardiac rhythm is sinus and the patient is adequately controlled in terms of her rate. The patient was also started on statins and the patient is currently on Lipitor 80 mg by mouth daily. She is on Levemir insulin 10 units in addition to NovoLog sinus Coverage. IV fluids are currently at KVO. She is tolerating diet. No other significant events otherwise for now. Neurology is on the case. The patient was seen and evaluated by neurology yesterday. As mentioned, CTA of the head and the neck showed no evidence of any dissection or carotid artery disease. No evidence of any high-grade stenosis. On 11/28/2022, the patient is still having some struggle and putting her words out although she can ultimately communicate. She is also having some fine motor skills. No new onset focal neurological deficits. MRI of the brain was done yesterday showed a area of acute/subacute ischemia within the left frontal lobe, left parietal lobe and left occipital lobe. Nonspecific white matter changes were also seen consistent with chronic small vessel ischemic change. Note that the MRI also showed a lesion on low signal with surrounding intense activity in the left parietal/frontal region measuring 2.8 cm. This is considered to be artifact versus hemorrhage. I would leave it to the neurologist to interpret those findings. Meanwhile, the patient had drainage of her pleural fluid from the Pleurx catheters bilaterally. A total of 1 L was removed from the right and 900 mL from the left making it a total of 1.9 L. She is on room air oxygen.. Her white cycles of 19.4. Sodium is at 129 with a BUN of 19 and creatinine of 0.6. Objective - Vital Signs Vital signs: Vital Signs Temp 97.7 F 11/28/22 04:00 Pulse 86 11/28/22 08:00 Resp 24 11/28/22 08:00 BP 108/51 11/28/22 06:00 Pulse Ox 96 11/28/22 07:41 FiO2 Intake & Output 11/27/22 11/28/22 11/28/22 18:59 06:59 18:59 Intake Total 170 80 Output Total 2075 150 Balance -1905 - Intake: IV 170 80 Magnesium Sulfate-D5w Pmx 100 1 gm In Dextrose/Water 1 100ml.bag @ 100 mls/hr IVPB Q1H [facility] Rx#: [id number] Sodium Chloride 0.9% 1, 70 80 000 ml @ 10 mls/hr IV . Q24H [facility] Rx#:[id number] Output: Drainage 1950 Left Abdomen/Pleurex 950 Right Abdomen/Pleurex 1000 Urine 125 150 Other: Voiding Method External Catheter External Catheter # Voids 1 - Exam GENERAL EXAM: Alert, 77-year-old white female appearing stated age, comfortable in no apparent distress., The patient is on room air oxygen HEAD: Normocephalic and atraumatic EYES: Normal reaction of pupils, equal size. NOSE: Clear with pink turbinates. THROAT: No erythema or exudates. NECK: No masses, no JVD. CHEST: No chest wall deformity. Bilateral Pleurx catheters LUNGS: Equal air entry with no crackles, wheeze, rhonchi or dullness. On room air. No conversational dyspnea or accessory muscle use.. CVS: S1 and S2 normal with no audible murmur, regular rhythm. No extra heart sounds ABDOMEN: No hepatosplenomegaly, active bowel sounds, no guarding or rigidity. SPINE: No scoliosis or deformity SKIN: No rashes CENTRAL NERVOUS SYSTEM: Patient is alert. Bilateral upper extremities 4 out of 5 strength, bilateral lower extremities 3 out of 5 strength, there is minimal right-sided facial weakness, no identified visual disturbances, no gaze palsy, follows directions appropriately, no ataxia out of proportion to weakness, no sensory loss, no inattention, patient exhibits severe dysphasia EXTREMITIES: There is 3+ pitting bilateral lower extremity edema. No clubbing, or cyanosis. Peripheral pulses are intact. - Labs CBC & Chem 7: 11/28/22 04:49 11/28/22 04:49 Labs: Abnormal Lab Results - Last 24 Hours (Table) 11/27/22 11/27/22 11/27/22 Range/Units 06:35 12:09 16:46 WBC (3.8-10.6) k/uL RDW (11.5-15.5) % Plt Count (150-450) k/uL Neutrophils # (Manual) 16.32 H (1.3-7.7) k/uL Monocytes # (Manual) 2.65 H (0-1.0) k/uL Sodium (137-145) mmol/L Carbon Dioxide (22-30) mmol/L BUN (7-17) mg/dL Glucose (74-99) mg/dL POC Glucose (mg/dL) 257 H 146 H (70-110) mg/dL Calcium (8.4-10.2) mg/dL 11/27/22 11/28/22 11/28/22 Range/Units 20:01 04:49 04:49 WBC 19.4 H (3.8-10.6) k/uL RDW 15.7 H (11.5-15.5) % Plt Count 113 L (150-450) k/uL Neutrophils # (Manual) 14.36 H (1.3-7.7) k/uL Monocytes # (Manual) 3.10 H (0-1.0) k/uL Sodium 129 L (137-145) mmol/L Carbon Dioxide 21 L (22-30) mmol/L BUN 19 H (7-17) mg/dL Glucose 207 H (74-99) mg/dL POC Glucose (mg/dL) 169 H (70-110) mg/dL Calcium 6.9 L (8.4-10.2) mg/dL 11/28/22 Range/Units 06:28 WBC (3.8-10.6) k/uL RDW (11.5-15.5) % Plt Count (150-450) k/uL Neutrophils # (Manual) (1.3-7.7) k/uL Monocytes # (Manual) (0-1.0) k/uL Sodium (137-145) mmol/L Carbon Dioxide (22-30) mmol/L BUN (7-17) mg/dL Glucose (74-99) mg/dL POC Glucose (mg/dL) 168 H (70-110) mg/dL Calcium (8.4-10.2) mg/dL Microbiology - Last 24 Hours (Table) 11/25/22 23:56 Urine Culture - Final Urine,Voided Assessment and Plan Assessment: Acute CVA, status post TPA infusion, with improved right-sided hemiparesis and severe persistent dysphasia. Speech is improved since yesterday. No new focal neurological deficits. MRI of the brain showed areas of acute/subacute infarct involving the left frontal/parietal/occipital lobe. There was also nonspecific white matter changes. Neurology to interpret those findings.. The patient is currently on aspirin. No new onset focal neurological deficit and the patient is still struggling with some difficulties with her speech/depression. Recurrent bilateral pleural effusions, status post Pleurx catheter insertion 10/19/2022. The effusions have been exudative in the past, however, most recent fluid analysis was transudative based on Light's criteria. Cytology has always been negative for malignancies. Patient underwent bilateral drainage and a total of 1.93 was evacuated from both pleural spaces. Acute kidney injury, possibly related to contrast induced ATN, improved Leukocytosis, doubt infectious etiology Thrombocytopenia, stable History of monoclonal B cell lymphocytosis, being followed outpatient by oncology Hyperlipidemia Essential hypertension Diabetes mellitus type 2, insulin-dependent Hypothyroidism, TSH was elevated at 70.8 and free T4 was low at 0.07 Ex-smoker Plan: MRI of the brain was noted Continue aspirin Lovenox for the prophylaxis No new onset focal neurological deficits Continue Lipitor 80 mg by mouth daily Able to swallow Continue draining the Pleurx catheter every 48 hours and the patient is currently on room air oxygen Synthroid doses was adjusted The patient is currently on Levemir insulin. Note that her HbA1c was quite elevated. Her Levemir is currently at 10 units with Nov[employer] scale coverage. We'll continue to follow.
[2022-11-28 11:05] LABS: Glucose,Whole Blood 193 mg/dL (70-110)
--- NOTE | 2022-11-28 12:49 | P.PN ---
Subjective Progress Note Date: 11/28/22 Patient was seen for a follow-up. Patient denies any headache or dizziness. Patient states she had bright red blood per rectum. Feels her speech is slightly better. No new weakness, numbness. No new neurological symptoms. Objective - Vital Signs Vital signs: Vital Signs Temp 97.7 F 11/28/22 04:00 Pulse 92 11/28/22 10:00 Resp 20 11/28/22 10:00 BP 126/80 11/28/22 10:00 Pulse Ox 93 L 11/28/22 08:00 FiO2 Intake & Output 11/27/22 11/28/22 11/28/22 18:59 06:59 18:59 Intake Total 170 80 Output Total 2075 150 Balance -1905 -70 Intake: IV 170 80 Magnesium Sulfate-D5w Pmx 100 1 gm In Dextrose/Water 1 100ml.bag @ 100 mls/hr IVPB Q1H [facility] Rx#: [id number] Sodium Chloride 0.9% 1, 70 80 000 ml @ 10 mls/hr IV . Q24H [facility] Rx#:[id number] Output: Drainage 1950 Left Abdomen/Pleurex 950 Right Abdomen/Pleurex 1000 Urine 125 150 Other: Voiding Method External Catheter External Catheter External Catheter # Voids 1 - Exam Patient's mental status is normal. Patient's speech is clear. She has some word hesitancy. Some paraphasic errors. Patient has mild dysarthria. She again has difficulty with repetition. She still has significant paraphasic errors, and some anomia. Patient says "laker" for knuckles, and was able to say ear lobe clearly. She is able to name button. She can follow directions very well. Intact comprehension. Cranial nerves are normal. Visual silverman are full. On muscle strength testing, patient has right pronation, no drift. The strength is normal. Sensory to touch is equal. No ataxia for rcygpi-ll-mipy testing. - Labs CBC & Chem 7: 11/29/22 05:44 11/29/22 05:44 Labs: Abnormal Lab Results - Last 24 Hours (Table) 11/27/22 11/27/22 11/28/22 Range/Units 16:46 20:01 04:49 WBC (3.8-10.6) k/uL RDW (11.5-15.5) % Plt Count (150-450) k/uL Neutrophils # (Manual) (1.3-7.7) k/uL Monocytes # (Manual) (0-1.0) k/uL Sodium 129 L (137-145) mmol/L Carbon Dioxide 21 L (22-30) mmol/L BUN 19 H (7-17) mg/dL Glucose 207 H (74-99) mg/dL POC Glucose (mg/dL) 146 H 169 H (70-110) mg/dL Calcium 6.9 L (8.4-10.2) mg/dL 11/28/22 11/28/22 11/28/22 Range/Units 04:49 06:28 11:04 WBC 19.4 H (3.8-10.6) k/uL RDW 15.7 H (11.5-15.5) % Plt Count 113 L (150-450) k/uL Neutrophils # (Manual) 14.36 H (1.3-7.7) k/uL Monocytes # (Manual) 3.10 H (0-1.0) k/uL Sodium (137-145) mmol/L Carbon Dioxide (22-30) mmol/L BUN (7-17) mg/dL Glucose (74-99) mg/dL POC Glucose (mg/dL) 168 H 193 H (70-110) mg/dL Calcium (8.4-10.2) mg/dL Microbiology - Last 24 Hours (Table) 11/25/22 23:56 Urine Culture - Final Urine,Voided Assessment and Plan Assessment: * Acute ischemic stroke involving the left frontal, parietal and occipital lobes, manifesting with aphasia, right hemiparesis, patient is status post TPA. Her NIH stroke scale documented ER was 7, but now it is 3 (related to mild dysarthria, mild aphasia and right pronator drift). * Diabetes poorly controlled * Heart failure * Hypothyroidism * Hypertension * Hyperlipidemia * Peripheral edema * Recurrent pleural effusion * History of monoclonal B-cell lymphocytosis * X tobacco use Plan: * Patient has received TPA. Patient is somewhat stable * MRI of the brain without contrast revealed foci of acute/subacute ischemia wi thin the left frontal lobe, left parietal lobe and left occipital lobe. Left parietal/frontal region of serpiginous low FLAIR signal with surrounding hyperintense FLAIR signal and susceptibility artifact suggest cortical laminar necrosis. I personally reviewed MRI, agree with the findings. * 2-D echo performed 10/12/2022 revealed left ventricle hypertrophy with preserved systolic function with EF 60-65%. Normal left atrial size. Large pleural effusion with echogenic material. Thickened pericardium, minimal to no effusion. * CTA head and neck showed: No evidence of dissection of the cervical internal carotid arteries or vertebral arteries or any evidence of significant stenosis of the carotid bifurcations. No evidence of intracranial high-grade stenosis or intracranial aneurysm. Bilateral thoracotomy tubes with small bilateral pleural effusion. * Fasting a.m. lipid panel pending * Hemoglobin A1c 12.0 consistent with poorly controlled diabetes. Recommend optimize control of diabetes to target A1c < 7.0 * TSH 70.8, free T4 0.07. Internal medicine to address abnormal thyroid functions. Patient was taking levothyroxine 150 g. Her dose increased to 200 g. * Optimize control of blood pressure to normotensive levels. * 24-hour post-TPA CT head showed no acute process. No bleed. * Patient started on aspirin 325 mg. Based upon the results of MRI, patient is high risk for hemorrhagic conversion, therefore will not give DAPT. We will decrease aspirin to 81 mg daily. * Repeat CT head, rule out hemorrhagic conversion. * Close neuro checks as per protocol. * Telemetry monitoring rule out any arrhythmia * PT, OT, speech therapy. * Other medical management as per IM and other specialties. * DVT prophylaxis: SCDs.
--- NOTE | 2022-11-28 15:40 | CT ---
EXAMINATION TYPE: CT brain wo con DATE OF EXAM: 11/28/2022 COMPARISON: CT brain 11/26/2022 HISTORY: Rule out hemorrhagic conversion CT DLP: 1100.[address] of the brain was performed. The ventricles, basal cisterns and sulci overlying the cerebral convexities demonstrate mild enlargem ent. Again noted is abnormal attenuation within the left frontal parietal lobe measuring 3.4 x 3.6 cm. The re are vague areas of increased attenuation seen which may reflect petechial hemorrhage. There is decreased attenuation about the periventricular white matter and deep white matter of both c erebral hemispheres, compatible with chronic small vessel ischemia. Differential diagnosis does inclu de demyelination. No midline shift. Osseous calvarium is intact. If symptoms persist consider MRI. IMPRESSION: 1. Evolution of left frontal parietal ischemic insult with areas of increased attenuation which may r eflect underlying petechial hemorrhage. No evidence for midline shift.
[2022-11-28 16:12] LABS: Glucose,Whole Blood 264 mg/dL (70-110)
[2022-11-28] MEDS: IPRATROPIUM-ALBUTEROL 3 ML NEB INHALATION SCH (20:29)
[2022-11-28 20:32] LABS: Glucose,Whole Blood 228 mg/dL (70-110)
[2022-11-28] MEDS: INSULIN DETEMIR (LEVEMIR) 100 UNIT/ML SYR SQ SCH (21:18)
[2022-11-28] MEDS: ATORVASTATIN 40 MG TAB PO SCH (21:19)
[2022-11-28] MEDS ORDERED: FLUCONAZOLE 100 MG TAB PO ONE (22:17)
--- NOTE | 2022-11-28 22:45 | P.CONS ---
History of Present Illness - Reason for Consult Consult date: 11/28/22 - History of Present Illness Patient is a 77-year-old female with past medical history significant for diabetes mellitus hypertension hyperlipidemia heart failure with patient did have a history of bilateral effusion recurrent requiring bilateral Pleurx catheter placement patient was admitted to hospital 3 days ago for evaluation of strokelike symptoms pulm the patient was initially aphasic and did have signifi cant right-sided hemiparesis patient did receive tPA and apparently did have improvement in her right-sided weakness brain CT did not show any evidence of intracranial or carotid aneurysm no significant dissection or stenosis patient was subsequently admitted to the ICU for management patient did not have any fever during this hospital stay and no significant tachycardia patient is on 2 L nasal oxygen and no hypertension patient did have a elevated white count of 20,000 which went up to 22.6 however is down to 19.4 thousand today did have a left shift creatinine has been normal liver enzymes are normal procalcitonin was 0.38 urine has been negative urine culture has been negative chest x-ray done on admission bilateral thoracotomy tubes present without evidence of pneumothorax low lung volumes infectious was consulted today because of her persistent elevated white count and need for antibiotic therapy, patient is currently breathing comfortably on the 2 L nasal cannula oxygen patient denies any headache at the time of evaluation complaining of slight confusion no nausea no vomiting abdominal pain or diarrhea has been reported Past Medical History Past Medical History: Heart Failure, Diabetes Mellitus, Hyperlipidemia, Hypertension, Thyroid Disorder Additional Past Medical History / Comment(s): left leg swells at end of day every day for about a year History of Any Multi-Drug Resistant Organisms: None Reported Past Surgical History: Cholecystectomy Additional Past Surgical History / Comment(s): cholecystectomy, cataract surgery Past Anesthesia/Blood Transfusion Reactions: No Reported Reaction Past Psychological History: No Psychological Hx Reported Smoking Status: Never smoker Past Alcohol Use History: Occasional Past Drug Use History: None Reported - Past Family History Father Family Medical History: Cancer, Prostate Disorder Additional Family Medical History / Comment(s): prostate CA Mother Additional Family Medical History / Comment(s): parkinsons Medications and Allergies Home Medications Medication Instructions Recorded Confirmed Type Simvastatin 40 mg PO HS 07/03/22 11/25/22 History Acetaminophen Tab [Tylenol] 650 mg PO Q6HR PRN tab 07/10/22 11/25/22 Rx Ferrous Sulfate [Iron (65 MG 325 mg PO DAILY 09/10/22 11/25/22 History Elemental)] Fluticasone/Umeclidin/Vilanter 1 puff INHALATION RT-DAILY 09/10/22 11/25/22 Hist ory [Trelegy Ellipta 200-62.5-25] Loratadine [Claritin] 10 mg PO DAILY 09/10/22 11/25/22 History Montelukast [Singulair] 10 mg PO DAILY 09/10/22 11/25/22 History Omeprazole 40 mg PO DAILY 09/10/22 11/25/22 History Ondansetron [Zofran] 4 mg PO Q6H PRN 09/10/22 11/25/22 History Ipratropium-Albuterol Nebulize 3 ml INHALATION RT-QID each 09/18/22 11/25/22 Rx [Duoneb 0.5 mg-3 mg/3 ml Soln] Calcium Carb-Vit D 500Mg-5Mcg 1 tab PO BID-W/MEALS 10/11/22 11/25/22 History [Oscal 500+D 5 Mcg (200 Iu)] Insulin Lispro See Protocol SQ ACHS PRN 10/11/22 11/25/22 History Levothyroxine Sodium [Synthroid] 150 mcg PO DAILY 10/11/22 11/25/22 History Budesonide [Pulmicort] 0.5 mg INHALATION RT-BID 90 Days 10/19/22 11/25/22 Rx #180 ml Dapagliflozin Propanediol [Farxiga] 5 mg PO DAILY 90 Days #90 tab 10/19/22 11/25/22 Rx Furosemide [Lasix] 40 mg PO BID@0900,1600 90 Days 10/19/22 11/25/22 Rx #180 tab Insulin Detemir (Levemir) [Levemir] 10 unit SQ HS each 10/19/22 11/25/22 Rx Losartan [Cozaar] 12.5 mg PO DAILY 90 Days #90 tab 10/19/22 11/25/22 Rx Allergies Allergy/AdvReac Type Severity Reaction Status Date / Time No Known Allergies Allergy Verified 11/25/22 20:55 Physical Exam Vitals: Vital Signs Temp Pulse Resp BP Pulse Ox 11/28/22 16:00 97 20 11/28/22 14:00 90 19 11/28/22 12:00 91 26 H 11/28/22 10:00 92 20 126/80 11/28/22 08:00 86 20 93 L 11/28/22 07:41 96 11/28/22 06:00 85 24 108/51 96 11/28/22 04:00 97.7 F 71 16 108/51 96 11/28/22 02:00 72 15 102/53 97 11/27/22 22:00 74 15 104/51 96 11/27/22 20:00 97.5 F L 79 23 99/53 96 11/27/22 19:42 80 11/27/22 19:33 79 11/27/22 18:00 82 20 98/48 Intake and Output 11/28/22 11/28/22 11/28/22 06:59 14:59 22:59 Intake Total 20 Output Total 150 Balance -130 Intake: IV 20 Sodium Chloride 0.9% 1, 20 000 ml @ 10 mls/hr IV . Q24H [facility] Rx#:[id number] Output: Urine 150 Other: Voiding Method External Catheter Weight 52.2 kg Results CBC & Chem 7: 11/28/22 04:49 11/28/22 04:49 Labs: Abnormal Lab Results - Last 24 Hours (Table) 11/27/22 11/28/22 11/28/22 Range/Units 20:01 04:49 04:49 WBC 19.4 H (3.8-10.6) k/uL RDW 15.7 H (11.5-15.5) % Plt Count 113 L (150-450) k/uL Neutrophils # (Manual) 14.36 H (1.3-7.7) k/uL Monocytes # (Manual) 3.10 H (0-1.0) k/uL Sodium 129 L (137-145) mmol/L Carbon Dioxide 21 L (22-30) mmol/L BUN 19 H (7-17) mg/dL Glucose 207 H (74-99) mg/dL POC Glucose (mg/dL) 169 H (70-110) mg/dL Calcium 6.9 L (8.4-10.2) mg/dL 11/28/22 11/28/22 11/28/22 Range/Units 06:28 11:04 16:10 WBC (3.8-10.6) k/uL RDW (11.5-15.5) % Plt Count (150-450) k/uL Neutrophils # (Manual) (1.3-7.7) k/uL Monocytes # (Manual) (0-1.0) k/uL Sodium (137-145) mmol/L Carbon Dioxide (22-30) mmol/L BUN (7-17) mg/dL Glucose (74-99) mg/dL POC Glucose (mg/dL) 168 H 193 H 264 H (70-110) mg/dL Calcium (8.4-10.2) mg/dL Microbiology - Last 24 Hours (Table) 11/25/22 23:56 Urine Culture - Final Urine,Voided Assessment and Plan Plan: 1patient with significant leukocytosis in this patient presented to hospital with strokelike symptoms and has received tPA patient did not have any fever during this admission chest x-ray did not show any consolidation however procalcitonin was mildly elevated urine was negative no blood culture done patient abdominal soft to clinical examination and no evidence of any joint swelling or cellulitis 2-we will obtain blood culture and repeat her inflammatory markers 3-empirically start the patient on Zosyn while waiting for repeat culture and work-up to be finalized We will follow on clinical condition and cultures to further adjust medication if needed Thank you for this consultation we will follow the patient along with you Dictation was produced using [employer] [place] dictation software. please excuse any grammatical, word or spelling errors. Time with Patient: Greater than 30
[2022-11-29] MEDS: PIPERACILLIN-TAZOBACTAM 3.375 GM in SODIUM CHLORIDE 0.9% 100 ML IVPB SCH ×4 (00:58→23:52)
--- NOTE | 2022-11-29 02:09 | PN ---
PROGRESS NOTE SUBJECTIVE: A 77-year-old white female, who said she is not feeling too good today. CT scan of her head shows some parenchymal hemorrhage in her brain. I stopped her Lovenox shots someone had ordered, so we will get her off blood thinners due to the parenchymal hemorrhage. OBJECTIVE: CARDIOVASCULAR: S1, S2. PSYCH: Fair mood and affect. NEUROLOGIC: The patient is about the same, but much better. She can move 4 extremities. ASSESSMENT: Cerebrovascular accident, parenchymal hemorrhage, hypertension, mastocytosis, pleural effusions, pulmonary hypertension, chronic obstructive pulmonary disease. I stopped her Lovenox. Continue to monitor her. Continue breathing treatments, oxygen p.r.n. Please see further orders. MMODL / IJN: [id number] /
[2022-11-29 02:47] LABS: ALT 15 U/L (4-34); AST 21 U/L (14-36); African American GFR (CKD) >90 (>60 ml/min/1.73 sqM); Albumin 2.1 g/dL (3.5-5.0); Alkaline Phosphatase 87 U/L (38-126); Anion Gap 4 mmol/L; Blood Urea Nitrogen 19 mg/dL (7-17); C Reactive Protein 1.2 mg/dL (<1.0); Calcium 7.1 mg/dL (8.4-10.2); Carbon Dioxide 20 mmol/L (22-30); Chloride 105 mmol/L (98-107); Glucose 199 mg/dL (74-99); Magnesium 1.7 mg/dL (1.6-2.3); Non-African American GFR(CKD) >90 (>60 ml/min/1.73 sqM); Potassium 4.2 mmol/L (3.5-5.1); Sodium 129 mmol/L (137-145); Total Bilirubin 0.3 mg/dL (0.2-1.3); Total Protein 4.8 g/dL (6.3-8.2)
[2022-11-29 04:18] LABS: T4, Free (Free Thyroxine) 0.65 ng/dL (0.78-2.19)
[2022-11-29] MEDS: LEVOTHYROXINE 100 MCG TAB PO SCH (05:47)
[2022-11-29] MEDS: SODIUM CHLORIDE 0.9% 1,000 ML IV SCH (05:48)
[2022-11-29 06:43] LABS: HCT 43.1 % (34.0-46.0); HGB 14.2 gm/dL (11.4-16.0); MCH 27.9 pg (25.0-35.0); MCHC 32.9 g/dL (31.0-37.0); MCV 84.6 fL (80.0-100.0); Mean Platelet Volume 13.4; Platelet Count 105 k/uL (150-450); RDW 15.7 % (11.5-15.5); WBC 21.5 k/uL (3.8-10.6)
[2022-11-29 06:57] LABS: Glucose,Whole Blood 238 mg/dL (70-110)
[2022-11-29 06:58] LABS: ALT 15 U/L (4-34); AST 26 U/L (14-36); African American GFR (CKD) >90 (>60 ml/min/1.73 sqM); Alkaline Phosphatase 77 U/L (38-126); Anion Gap 7 mmol/L; Blood Urea Nitrogen 18 mg/dL (7-17); Calcium 6.9 mg/dL (8.4-10.2); Carbon Dioxide 21 mmol/L (22-30); Chloride 102 mmol/L (98-107); Glucose 181 mg/dL (74-99); Non-African American GFR(CKD) 90 (>60 ml/min/1.73 sqM); Potassium 4.4 mmol/L (3.5-5.1); Sodium 130 mmol/L (137-145); Total Bilirubin 0.4 mg/dL (0.2-1.3); Total Protein 4.5 g/dL (6.3-8.2)
[2022-11-29] MEDS ORDERED: MAGNESIUM SULFATE-D5W PMX 1 GM in DEXTROSE/WATER 1 100ML.BAG IVPB ONE (07:30)
--- NOTE | 2022-11-29 07:44 | XR ---
EXAMINATION TYPE: XR chest 1V portable DATE OF EXAM: 11/29/2022 HISTORY: Shortness of breath. COMPARISON: 11/25/2022 TECHNIQUE: Single view of the chest is submitted. FINDINGS: Demonstrated are scattered senescent parenchymal change. Progressive Diffuse hazy opacity seen overlying both lung silverman which may reflect layering effusions . Bilateral chest tubes are in place. Perihilar and basilar airspace consolidation. Hilar and mediastinal structures are within normal limits. Degenerative changes are seen of the dorsal spine. IMPRESSION: 1. Progressive Diffuse hazy opacity seen overlying both lung silverman which may reflect layering effus ions. Bilateral chest tubes are in place. Perihilar and basilar airspace consolidation.
[2022-11-29] MEDS: IPRATROPIUM-ALBUTEROL 3 ML NEB INHALATION SCH ×4 (08:06→20:13)
[2022-11-29] MEDS: BUDESONIDE 0.5 MG/2 ML NEBU INHALATION SCH ×2 (08:06→20:14)
[2022-11-29 08:17] LABS: Lymphocytes # (M) 3.23 k/uL (1.0-4.8); Monocytes # (M) 4.09 k/uL (0-1.0); Neutrophils # (M) 14.19 k/uL (1.3-7.7); Neutrophils % (M) 66 %; Nucleated Red Blood Cells 0 /100 WBC (0-0); Total Cells Counted 100
[2022-11-29] MEDS: ASPIRIN 81 MG PO SCH (08:24)
[2022-11-29] MEDS: INSULIN ASPART (NovoLOG) 100 UNIT/ML VIAL SQ SCH ×4 (08:24→20:28)
[2022-11-29] MEDS: PANTOPRAZOLE 40 MG/10 ML VIAL IV SCH (08:24)
--- NOTE | 2022-11-29 08:35 | P.CONS ---
History of Present Illness - Reason for Consult Consult date: 11/29/22 rehab recommendations - Chief Complaint CVA - History of Present Illness Mrs Ping Villalpando is a 77 y/o right handed female who lives with her in a single story condo with 2 FIORDALIZA. Prior to admission, she was ambulating with a 4ww, independent with ADLs. She was able to drive. She has g ood support form her , but he recently hurt his back helping her up after a fall. She has O2 at home, but cannot recall how many liters. She also has a wheelchair at home. Mrs Villalpando was brought into the hospital on 11/25/22 by ambulance yesterday at 7:38 PM for acute onset of stroke symptoms. Patient says that she suddenly could not talk and developed right-sided weakness. As per EMS flow sheet, when they arrived, patient was sitting upright in the chair. Patient's states that patient began to "act weird" about 45 minutes to an hour prior to EMS arrival. Patient was noted to have right facial droop right extremity flaccidity and aphasia. Patient was alert, unable to answer questions with GCS of 13. Patient not on any blood thinners. No trauma. Patient's blood glucose was 331. Blood pressure 101/46, pulse rate 84, respirations 16, saturation 97%. Vital signs arrival blood pressure 121/69, pulse rate [address] head revealed no acute process. Small vessel ischemic disease. EKG shows sinus rhythm. Chest x-ray showed bilateral thoracotomy tubes without evidence of pneumothorax. The case discussed with stroke neurologist, and patient received TPA. Patient had improvements of speech and right sided weakness after tPA. Neurology recommended an MRI Brain, which revealed foci of acute/subacute ischemia in the left frontal lobe, left parietal and left occipital lobe. Patient's A1c noted to be 12. She was started on aspirin and atorvastatin. Henry sandoval's EF 60-65%. Patient noted to have elevated white blood cell count, she is currently on Zosyn, blood cultures are pending. PM and R consulted for rehabilitation recommendations. Patient was seen by therapies, needing min assist for bathing and upper body dressing, max assist for lower body dressing, supervision for grooming, min assist for gait using to head walker for 25 feet. She was cleared by speech therapy for regular diet with thin liquids. Noted to have receptive and expressive aphasia. 8/24/23: Patient states she is feeling better, but still not herself. She still feels like she is slightly weak on her right side. She denies numbness, tingling, burning sensations in the arms or legs. She denies issues with swallowing. She is currently in oxygen via nasal cannula. She denies chest pain, abdominal pain. Had a bowel movement this morning, denies issues with urination. She is frustrated that she is having trouble expressing what she wants at times, or slow to respond. She has no current complaints of pain. Review of Systems Reviewed, negative unless stated above in HPI Past Medical History Past Medical History: Heart Failure, Diabetes Mellitus, Hyperlipidemia, Hypertension, Thyroid Disorder Additional Past Medical History / Comment(s): left leg swells at end of day every day for about a year History of Any Multi-Drug Resistant Organisms: None Reported Past Surgical History: Cholecystectomy Additional Past Surgical History / Comment(s): cholecystectomy, cataract surgery Past Anesthesia/Blood Transfusion Reactions: No Reported Reaction Past Psychological History: No Psychological Hx Reported Smoking Status: Never smoker Past Alcohol Use History: Occasional Past Drug Use History: None Reported - Past Family History Father Family Medical History: Cancer, Prostate Disorder Additional Family Medical History / Comment(s): prostate CA Mother Additional Family Medical History / Comment(s): parkinsons Medications and Allergies Home Medications Medication Instructions Recorded Confirmed Type Simvastatin 40 mg PO HS 07/03/22 11/25/22 History Acetaminophen Tab [Tylenol] 650 mg PO Q6HR PRN tab 07/10/22 11/25/22 Rx Ferrous Sulfate [Iron (65 MG 325 mg PO DAILY 09/10/22 11/25/22 History Elemental)] Fluticasone/Umeclidin/Vilanter 1 puff INHALATION RT-DAILY 09/10/22 11/25/22 History [Trelegy Ellipta 200-62.5-25] Loratadine [Claritin] 10 mg PO DAILY 09/10/22 11/25/22 History Montelukast [Singulair] 10 mg PO DAILY 09/10/22 11/25/22 History Omeprazole 40 mg PO DAILY 09/10/22 11/25/22 History Ondansetron [Zofran] 4 mg PO Q6H PRN 09/10/22 11/25/22 History Ipratropium-Albuterol Nebulize 3 ml INHALATION RT-QID each 09/18/22 11/25/22 Rx [Duoneb 0.5 mg-3 mg/3 ml Soln] Calcium Carb-Vit D 500Mg-5Mcg 1 tab PO BID-W/MEALS 10/11/22 11/25/22 History [Oscal 500+D 5 Mcg (200 Iu)] Insulin Lispro See Protocol SQ ACHS PRN 10/11/22 11/25/22 History Levothyroxine Sodium [Synthroid] 150 mcg PO DAILY 10/11/22 11/25/22 History Budesonide [Pulmicort] 0.5 mg INHALATION RT-BID 90 Days 10/19/22 11/25/22 Rx #180 ml Dapagliflozin Propanediol [Farxiga] 5 mg PO DAILY 90 Days #90 tab 10/19/22 11/25/22 Rx Furosemide [Lasix] 40 mg PO BID@0900,1600 90 Days 10/19/22 11/25/22 Rx #180 tab Insulin Detemir (Levemir) [Levemir] 10 unit SQ HS each 10/19/22 11/25/22 Rx Losartan [Cozaar] 12.5 mg PO DAILY 90 Days #90 tab 10/19/22 11/25/22 Rx Allergies Allergy/AdvReac Type Severity Reaction Status Date / Time No Known Allergies Allergy Verified 11/25/22 20:55 Physical Exam Vitals: Vital Signs Temp Pulse Pulse Resp BP BP Pulse Ox 11/29/22 02:00 87 89 23 109/60 110/64 96 11/29/22 00:00 91 20 11/28/22 22:00 89 15 110/62 11/28/22 21:39 96 21 11/28/22 20:37 100 11/28/22 20:29 101 H 11/28/22 20:00 97.6 F 101 H 96 14 102/64 105/64 95 11/28/22 18:00 97 28 H 11/28/22 16:00 97 20 11/28/22 14:00 90 19 123/76 11/28/22 12:00 91 26 H 11/28/22 10:00 92 20 126/80 Intake and Output 11/28/22 11/29/22 11/29/22 22:59 06:59 14:59 Intake Total 500 Balance 500 Intake: Oral 500 Other: # Voids 1 # Bowel Movements 1 General: Well-developed thin elderly female sitting up in chair in no acute distress HEENT: NC/AT, external ears intact, hearing intact to conversational speech, neck supple Cardiovascular: global technical writer on, B/L calves are supple, nontender, no cords, 1+ peripheral edema, no cardiac distress Respiratory: Even and unlabored breathing on O2 Abdomen: Soft, nontender, nondistended; Genitourinary: No suprapubic tenderness Musculoskeletal: ROM WFL EXCEPT: Slightly decreased bilateral hip flexion right greater than left, very mild right hemiparesis MMT UE Sh Abd EE EF FABD WE HG Right 4- 4- 4 4- 4 4+ Left 4 4- 4+ 4+ 4+ 4+ MMT LE HF KE DF EHL Right 3+ 4 5 5 Left 4 4+ 5 5 Skin: Skin intact where visible to head, neck, and bilateral upper and lower extremities, PIV Neurological: Alert and Oriented x 4, had to be given options on year, she was unable to express her last name. Delayed 3 word recall 2/3. Speech is clear and fluent. Slow processing at times, Expressive > receptive aphasia, cranial nerves grossly intact except slight right facial droop Reflexes Biceps Triceps Brachioradialis Patella Achilles Babinski Hoffmans Right 2 2 2 0 0 - Left 2 2 2 0 0 - Coordination: Right finger to nose dysmetria, HTS intact Sensation: decreased sensation to light touch right lower extremity, otherwise intact Psychiatric: Mood calm, affect flat, cooperative Results CBC & Chem 7: 11/29/22 05:44 11/29/22 05:44 Labs: Abnormal Lab Results - Last 24 Hours (Table) 11/28/22 11/28/22 11/28/22 Range/Units 11:04 16:10 20:31 WBC (3.8-10.6) k/uL RDW (11.5-15.5) % Plt Count (150-450) k/uL Sodium (137-145) mmol/L Carbon Dioxide (22-30) mmol/L BUN (7-17) mg/dL Glucose (74-99) mg/dL POC Glucose (mg/dL) 193 H 264 H 228 H (70-110) mg/dL Calcium (8.4-10.2) mg/dL C-Reactive Protein (<1.0) mg/dL Total Protein (6.3-8.2) g/dL Albumin (3.5-5.0) g/dL TSH (0.465-4.680) mIU/L Free T4 (0.78-2.19) ng/dL 11/29/22 11/29/22 11/29/22 Range/Units 02:15 05:44 05:44 WBC 21.5 H (3.8-10.6) k/uL RDW 15.7 H (11.5-15.5) % Plt Count 105 L (150-450) k/uL Sodium 129 L 130 L (137-145) mmol/L Carbon Dioxide 20 L 21 L (22-30) mmol/L BUN 19 H 18 H (7-17) mg/dL Glucose 199 H 181 H (74-99) mg/dL POC Glucose (mg/dL) (70-110) mg/dL Calcium 7.1 L 6.9 L (8.4-10.2) mg/dL C-Reactive Protein 1.2 H (<1.0) mg/dL Total Protein 4.8 L 4.5 L (6.3-8.2) g/dL Albumin 2.1 L 2.0 L (3.5-5.0) g/dL TSH 65.100 H (0.465-4.680) mIU/L Free T4 0.65 L (0.78-2.19) ng/dL 11/29/22 Range/Units 06:56 WBC (3.8-10.6) k/uL RDW (11.5-15.5) % Plt Count (150-450) k/uL Sodium (137-145) mmol/L Carbon Dioxide (22-30) mmol/L BUN (7-17) mg/dL Glucose (74-99) mg/dL POC Glucose (mg/dL) 238 H (70-110) mg/dL Calcium (8.4-10.2) mg/dL C-Reactive Protein (<1.0) mg/dL Total Protein (6.3-8.2) g/dL Albumin (3.5-5.0) g/dL TSH (0.465-4.680) mIU/L Free T4 (0.78-2.19) ng/dL Assessment and Plan Assessment: #acute/subacute ischemia in the left frontal lobe, left parietal and left occipital lobes status post TPA, dominant side -PT/OT/WIRE CUTTER -patient cleared for regular diet and thin liquids -On aspirin and statin therapy # Expressive and receptive aphasia # Right hemiparesis # Poorly controlled diabetes mellitus, hemoglobin A1c 12 #Congestive heart failure #Peripheral edema #Recurrent pleural effusion with history of Pleurx cath and thoracotomy # Comorbidities: History of monoclonal B-cell lymphocytosis,Hyperlipidemia, Hypertension,Hypothyroidism # Pain Management: Morphine 4 mg IV Q 3 hrs prn -11/29/22 no complaints of pain # leukocytosis -currently on Zosyn, blood cultures pending # History of tobacco abuse # Bowel/ Bladder -monitor for retention # Your medical dx and management Goals: Modified Independent mobility and ADLS both basic and advanced; increased functional mobility/strength; increased balance, safety, endurance. Improvement in medical issues through your care. Discharge recommendation: Recommending Inpatient rehab for this patient when medical work up has been completed. She has pending blood cultures. Patient is motived to get better and get back home. Discussed options with patient, she was hoping for home with home care but given her current functional status and her with a recent back injury I highly recommended IPR. She voiced understanding. Patient was seen and examined in coordination with Dr Elisa Randhawa Thank you for this consultation.
--- NOTE | 2022-11-29 09:31 | P.PN ---
Subjective Progress Note Date: 11/29/22 I am seeing this patient in new consultation today 11/26/2022 in the intensive care unit for an acute CVA status post TPA infusion. Patient is a 77-year-old female with past medical history significant for diabetes mellitus, hyperlipidemia, hypertension, hypothyroidism, monoclonal B-cell lymphocytosis, and recurrent pleural effusions. Her primary care provider is Dr. Steve Barron. She does follow in the office with Dr. Rodgers for recurrent pleural effusions. Patient recently had a hospital admission for recurrent bilateral pleural effusions, and is status post bilateral Pleurx catheter insertion on 10/19/2022, the patient was discharged home the following day. Patient's most recent fluid analysis was transudative based on Light's criteria, and cytology has always been negative. Patient presented to the emergency room last night after her called EMS immediately after strokelike symptoms presented. The patient was initially aphasic and had significant right-sided hemiparesis. Initial NIH was recorded at 7. In the emergency room, the patient was administered TPA. She has had improvement in her right-sided weakness and some modest improvement in her dysphasia. Her speech is still significantly impaired, and it is difficult to obtain HPI from the patient. Brain CT did not show any acute intracranial abnormalities. Brain CTA did not show any evidence of intracranial or carotid aneurysm, dissection or significant stenosis. Patient is currently sitting up in bed, on room air, in no acute distress. She is frustrated with her expressive dysphasia. Her right-sided hemiparesis appears to have mostly resolved. She may have some minimal right-sided facial weakness. Patient has no evidence of post-TPA bleeding. There is a 24 hr follow-up brain CT ordered. CBC shows a WBC count of 20.7, hemoglobin 11.9, hematocrit 36.9, platelets 103. BMP shows sodium 127, potassium 4.6, chloride 100, serum bicarbonate 21, BUN 29, creatinine 1.13, blood glucose 240. Normal saline is currently infusing at 75 mL per hour. Patient does have 2 Pleurx catheters, with surrounding insertion sites clean and dry. She reportedly drains the catheters every 48 hours. Chest x-ray redemonstrates the bilateral thoracotomy tubes without evidence of pneumothorax and trace to small bilateral pleural effusions. Patient is hemodynamically stable at this time. On 11/27/2022, the patient is clinically stable. She is post CVA. Her speech is a bit delayed that she is able to alter the appropriate words. No new onset focal neurological deficits. The patient received normal at 6 and a repeat CAT scan of the brain was done yesterday at around 8 PM and there was no evidence of any acute process. There is no evidence of any bleeding. The patient was started on oral aspirin for now. Neurology is on the case. Her vitals are stable. She is on 2 L of oxygen by nasal cannula with a pulse ox of 98%. She is hemodynamically stable. Blood pressure is soft. There is no significant hypotension. Her current cardiac rhythm is sinus and the patient is adequately controlled in terms of her rate. The patient was also started on statins and the patient is currently on Lipitor 80 mg by mouth daily. She is on Levemir insulin 10 units in addition to NovoLog sinus Coverage. IV fluids are currently at KVO. She is tolerating diet. No other significant events otherwise for now. Neurology is on the case. The patient was seen and evaluated by neurology yesterday. As mentioned, CTA of the head and the neck showed no evidence of any dissection or carotid artery disease. No evidence of any high-grade stenosis. On 11/28/2022, the patient is still having some struggle and putting her words out although she can ultimately communicate. She is also having some fine motor skills. No new onset focal neurological deficits. MRI of the brain was done yesterday showed a area of acute/subacute ischemia within the left frontal lobe, left parietal lobe and left occipital lobe. Nonspecific white matter changes were also seen consistent with chronic small vessel ischemic change. Note that the MRI also showed a lesion on low signal with surrounding intense activity in the left parietal/frontal region measuring 2.8 cm. This is considered to be artifact versus hemorrhage. I would leave it to the neurologist to interpret those findings. Meanwhile, the patient had drainage of her pleural fluid from the Pleurx catheters bilaterally. A total of 1 L was removed from the right and 900 mL from the left making it a total of 1.9 L. She is on room air oxygen.. Her white cycles of 19.4. Sodium is at 129 with a BUN of 19 and creatinine of 0.6. On 11/29/2022, the patient remains essentially weak and she will benefit from rehabilitation. She is having issues with expressive aphasia. A follow-up CAT scan of the brain was done yesterday showed evolution of left frontal parietal ischemic insult and areas of increased attenuation which will reflect underlying petechial hemorrhage. No evidence of any midline shifts. Neurology was made aware of this changes and aspirin has been At a dose of 81 mg by mouth daily. She is sitting up on a chair and she is communicating. She is on oxygen at 2 L. Noted yesterday she was on room air. She has home oxygen. She will need bilateral drainage of her pleural fluid today. Less drainage was done 48 hours ago. Labs are all stable. White cell count remains quite elevated at 21.5 and hemoglobin is at 14.2. BUN is at 18 with a creatinine of 0.5 and a sodium level is at 1:30. Her pro calcitonin level was at 0.38. A repeat chest x-ray was done today and it showed bilateral pleural effusions and obviously this is chronic and needs to be drained. The patient was placed on Zosyn and panicky by infectious disease Objective - Vital Signs Vital signs: Vital Signs Temp 97.2 F L 11/29/22 08:00 Pulse 89 11/29/22 08:00 Resp 20 11/29/22 08:00 BP 105/67 11/29/22 08:00 Pulse Ox 98 11/29/22 08:00 FiO2 Intake & Output 11/28/22 11/29/22 11/29/22 18:59 06:59 18:59 Intake Total 500 Balance 500 Weight 52.2 kg Intake: Oral 500 Other: Voiding Method External Catheter # Voids 1 1 # Bowel Movements 1 - Exam GENERAL EXAM: Alert, 77-year-old white female appearing stated age, comfortable in no apparent distress., The patient is on room air oxygen HEAD: Normocephalic and atraumatic EYES: Normal reaction of pupils, equal size. NOSE: Clear with pink turbinates. THROAT: No erythema or exudates. NECK: No masses, no JVD. CHEST: No chest wall deformity. Bilateral Pleurx catheters LUNGS: Equal air entry with no crackles, wheeze, rhonchi or dullness. On room air. No conversational dyspnea or accessory muscle use.. CVS: S1 and S2 normal with no audible murmur, regular rhythm. No extra heart sounds ABDOMEN: No hepatosplenomegaly, active bowel sounds, no guarding or rigidity. SPINE: No scoliosis or deformity SKIN: No rashes CENTRAL NERVOUS SYSTEM: Patient is alert. Bilateral upper extremities 4 out of 5 strength, bilateral lower extremities 3 out of 5 strength, there is minimal right-sided facial weakness, no identified visual disturbances, no gaze palsy, follows directions appropriately, no ataxia out of proportion to weakness, no sensory loss, no inattention, patient exhibits severe dysphasia EXTREMITIES: There is 3+ pitting bilateral lower extremity edema. No clubbing, or cyanosis. Peripheral pulses are intact. - Labs CBC & Chem 7: 11/29/22 05:44 11/29/22 05:44 Labs: Abnormal Lab Results - Last 24 Hours (Table) 11/28/22 11/28/22 11/28/22 Range/Units 11:04 16:10 20:31 WBC (3.8-10.6) k/uL RDW (11.5-15.5) % Plt Count (150-450) k/uL Neutrophils # (Manual) (1.3-7.7) k/uL Monocytes # (Manual) (0-1.0) k/uL Sodium (137-145) mmol/L Carbon Dioxide (22-30) mmol/L BUN (7-17) mg/dL Glucose (74-99) mg/dL POC Glucose (mg/dL) 193 H 264 H 228 H (70-110) mg/dL Calcium (8.4-10.2) mg/dL C-Reactive Protein (<1.0) mg/dL Total Protein (6.3-8.2) g/dL Albumin (3.5-5.0) g/dL TSH (0.465-4.680) mIU/L Free T4 (0.78-2.19) ng/dL 11/29/22 11/29/22 11/29/22 Range/Units 02:15 05:44 05:44 WBC 21.5 H (3.8-10.6) k/uL RDW 15.7 H (11.5-15.5) % Plt Count 105 L (150-450) k/uL Neutrophils # (Manual) 14.19 H (1.3-7.7) k/uL Monocytes # (Manual) 4.09 H (0-1.0) k/uL Sodium 129 L 130 L (137-145) mmol/L Carbon Dioxide 20 L 21 L (22-30) mmol/L BUN 19 H 18 H (7-17) mg/dL Glucose 199 H 181 H (74-99) mg/dL POC Glucose (mg/dL) (70-110) mg/dL Calcium 7.1 L 6.9 L (8.4-10.2) mg/dL C-Reactive Protein 1.2 H (<1.0) mg/dL Total Protein 4.8 L 4.5 L (6.3-8.2) g/dL Albumin 2.1 L 2.0 L (3.5-5.0) g/dL TSH 65.100 H (0.465-4.680) mIU/L Free T4 0.65 L (0.78-2.19) ng/dL 11/29/22 Range/Units 06:56 WBC (3.8-10.6) k/uL RDW (11.5-15.5) % Plt Count (150-450) k/uL Neutrophils # (Manual) (1.3-7.7) k/uL Monocytes # (Manual) (0-1.0) k/uL Sodium (137-145) mmol/L Carbon Dioxide (22-30) mmol/L BUN (7-17) mg/dL Glucose (74-99) mg/dL POC Glucose (mg/dL) 238 H (70-110) mg/dL Calcium (8.4-10.2) mg/dL C-Reactive Protein (<1.0) mg/dL Total Protein (6.3-8.2) g/dL Albumin (3.5-5.0) g/dL TSH (0.465-4.680) mIU/L Free T4 (0.78-2.19) ng/dL Assessment and Plan Assessment: Acute CVA, status post TPA infusion, with improved right-sided hemiparesis and severe persistent dysphasia. Speech is improved since yesterday. No new focal neurological deficits. MRI of the brain showed areas of acute/subacute infarct involving the left frontal/parietal/occipital lobe. There was also nonspecific white matter changes. Neurology to interpret those findings.. The patient is currently on aspirin. No new onset focal neurological deficit and the patient is still struggling with some difficulties with her speech/depression. The re peat CAT scan of the brain showed evidence of a left frontal/parietal ischemic insult with areas of increased attenuation reflecting petechial hemorrhage. Patient remains on aspirin. Recurrent bilateral pleural effusions, status post Pleurx catheter insertion 10/19/2022. The effusions have been exudative in the past, however, most recent fluid analysis was transudative based on Light's criteria. Cytology has always been negative for malignancies. Patient underwent bilateral drainage and a t otal of 1.93 was evacuated from both pleural spaces. Repeat chest x-rays showing reactive initial pleural fluid and the patient will need another drainage session today Acute kidney injury, possibly related to contrast induced ATN, improved Leukocytosis, doubt infectious etiology, currently on IV Zosyn Thrombocytopenia, stable History of monoclonal B cell lymphocytosis, being followed outpatient by oncology Hyperlipidemia Essential hypertension Diabetes mellitus type 2, insulin-dependent, currently on Levemir insulin at a dose of 10 units Hypothyroidism, TSH was elevated at 70.8 and free T4 was low at 0.07 Ex-smoker Plan: MRI of the brain was noted Repeat CAT scan of the brain was noted Continue aspirin Neurology is on the case Lovenox was discontinued No new onset focal neurological deficits Continue Lipitor 80 mg by mouth daily Able to swallow Continue draining the Pleurx catheter every 48 hours and the patient is currently on room air oxygen, and the patient is going to have another drainage of the pleural fluid today Increase Levemir up to 16 units daily Synthroid doses was adjusted Possible inpatient rehabilitation at [facility] We'll continue to follow.
[2022-11-29 11:25] LABS: Glucose,Whole Blood 260 mg/dL (70-110)
--- NOTE | 2022-11-29 12:20 | CDI ---
Documentation Clarification Form Date: From: Fior Coles Phone: [phone] Admit Date: 11/25/2022 08:34:00 PM Patient Name: Ping Villalpando Visit Number: [id number] Discharge Date: ATTENTION: The Clinical Documentation Specialists (CDI) and [facility] Coding Staff appreciate your assistance in clarifying documentation. Please respond to the clarification below the line at the bottom and electronically sign. The CDI & [facility] Coding staff will review the response and follow-up if needed. Please note: Queries are made part of the Legal Health Record. If you have any questions, please contact the author of this message via ITS. Dr. Steve Barron Your patient has an abnormal lab value: Sodium 127. Please clarify if there is an additional diagnosis and/or clinical significance related to this value. History/Risk Factors: "77-year-old right-handed female, who was brought to the hospital by ambulance yesterday at 7:38 PM for acute onset of stroke symptoms. Patient says that she suddenly could not talk and developed right-sided weakness." "Past Medical History: Heart Failure, Diabetes Mellitus, Hyperlipidemia, Hypertension, Thyroid Disorder" - Per Neurology Consult Note on 11/26 Clinical indicators: "BMP shows sodium 127" "patient was initially aphasic and had significant right-sided hemiparesis. Initial NIH was recorded at 7. In the emergency room, the patient was administered TPA. She has had improvement in her right-sided weakness and some modest improvement in her dysphasia. Her speech is still significantly impaired, and it is difficult to obtain HPI from the patient." - Per Progress Note on 11/27 Sodium: 11/25 - 127, 11/26 - 129, 11/27 - 128, 11/28 - 129, 11/29 - 129, 130 Treatment: "Normal saline is currently infusing at 75 mL per hour." - Per Progress Note on 11/27 Is there an additional diagnosis and/or clinical significance related to the above lab result/information? [ ] Hyponatremia [ ] No additional diagnosis/Not clinically significant [ ] Other, please specify [ ] Unable to determine MTDD
--- NOTE | 2022-11-29 16:39 | P.PN ---
Subjective Progress Note Date: 11/29/22 Principal diagnosis: Leukocytosis Patient is a 77-year-old female with past medical history significant for diabetes mellitus hypertension hyperlipidemia heart failure with patient did have a history of bilateral effusion recurrent requiring bilateral Pleurx catheter placement, patient presented to hospital with strokelike symptoms did receive tPA noticed to have elevated white count prompted this infectious disease consultation On today's evaluation that is 11/29/2022, the patient remains to be afebrile, she is breathing comfortably on 2 L nasal cannula oxygen. Denies having any chest pain occasional cough no nausea no vomiting no abdominal pain no diarrhea Patient noticed a slight worsening of the white count is 21.5 creatinine 0.56, chest x-ray this morning with progressive diffuse has the opacity overlying both lung silverman, procalcitonin is 0.37 Objective - Vital Signs Vital signs: Vital Signs Temp 97.2 F L 11/29/22 08:00 Pulse 87 11/29/22 11:49 Resp 20 11/29/22 08:00 BP 105/67 11/29/22 08:00 Pulse Ox 98 11/29/22 08:00 FiO2 Intake & Output 11/28/22 11/29/22 11/29/22 18:59 06:59 18:59 Intake Total 500 Output Total 1 2000 Balance 499 -2000 Weight 52.2 kg Intake: Oral 500 Output: Drainage 2000 Left Abdomen/Pleurex 1000 Right Abdomen/Pleurex 1000 Stool 1 Other: Voiding Method External Catheter External Catheter # Voids 1 1 1 # Bowel Movements 1 - Exam GENERAL DESCRIPTION: An elderly female up in the chair in no distress RESPIRATORY SYSTEM: Unlabored breathing , decreased breath sounds at bases HEART: S1 S2 regular rate and rhythm , ABDOMEN: Soft , no tenderness EXTREMITIES: No edema feet - Labs CBC & Chem 7: 11/29/22 05:44 11/29/22 05:44 Labs: Abnormal Lab Results - Last 24 Hours (Table) 11/28/22 11/28/22 11/29/22 Range/Units 16:10 20:31 02:15 WBC (3.8-10.6) k/uL RDW (11.5-15.5) % Plt Count (150-450) k/uL Neutrophils # (Manual) (1.3-7.7) k/uL Monocytes # (Manual) (0-1.0) k/uL Sodium 129 L (137-145) mmol/L Carbon Dioxide 20 L (22-30) mmol/L BUN 19 H (7-17) mg/dL Glucose 199 H (74-99) mg/dL POC Glucose (mg/dL) 264 H 228 H (70-110) mg/dL Calcium 7.1 L (8.4-10.2) mg/dL C-Reactive Protein 1.2 H (<1.0) mg/dL Total Protein 4.8 L (6.3-8.2) g/dL Albumin 2.1 L (3.5-5.0) g/dL TSH 65.100 H (0.465-4.680) mIU/L Free T4 0.65 L (0.78-2.19) ng/dL 11/29/22 11/29/22 11/29/22 Range/Units 05:44 05:44 06:56 WBC 21.5 H (3.8-10.6) k/uL RDW 15.7 H (11.5-15.5) % Plt Count 105 L (150-450) k/uL Neutrophils # (Manual) 14.19 H (1.3-7.7) k/uL Monocytes # (Manual) 4.09 H (0-1.0) k/uL Sodium 130 L (137-145) mmol/L Carbon Dioxide 21 L (22-30) mmol/L BUN 18 H (7-17) mg/dL Glucose 181 H (74-99) mg/dL POC Glucose (mg/dL) 238 H (70-110) mg/dL Calcium 6.9 L (8.4-10.2) mg/dL C-Reactive Protein (<1.0) mg/dL Total Protein 4.5 L (6.3-8.2) g/dL Albumin 2.0 L (3.5-5.0) g/dL TSH (0.465-4.680) mIU/L Free T4 (0.78-2.19) ng/dL 11/29/22 Range/Units 11:24 WBC (3.8-10.6) k/uL RDW (11.5-15.5) % Plt Count (150-450) k/uL Neutrophils # (Manual) (1.3-7.7) k/uL Monocytes # (Manual) (0-1.0) k/uL Sodium (137-145) mmol/L Carbon Dioxide (22-30) mmol/L BUN (7-17) mg/dL Glucose (74-99) mg/dL POC Glucose (mg/dL) 260 H (70-110) mg/dL Calcium (8.4-10.2) mg/dL C-Reactive Protein (<1.0) mg/dL Total Protein (6.3-8.2) g/dL Albumin (3.5-5.0) g/dL TSH (0.465-4.680) mIU/L Free T4 (0.78-2.19) ng/dL Assessment and Plan (1) Leukocytosis Current Visit: No Status: Acute Priority: High Code(s): D72.829 - ELEVATED WHITE BLOOD CELL COUNT, UNSPECIFIED SNOMED Code(s): 611945146 Plan: 1patient with significant leukocytosis in this patient presented to hospital with strokelike symptoms and has received tPA patient did not have any fever during this admission chest x-ray did not show any consolidation however procalcitonin was mildly elevated urine was negative no blood culture done patient abdominal soft on clinical examination and no evidence of any joint swel ling or cellulitis 2-blood cultures currently pending patient did have a mildly elevated procalcitonin 0.37 3Patient to continue with Zosyn while waiting for repeat culture and work-up to be finalized Dictation was produced using [employer] dictation software. please excuse any grammatical, word or spelling errors. Time with Patient: Less than 30
[2022-11-29 17:23] LABS: Glucose,Whole Blood 331 mg/dL (70-110)
[2022-11-29] MEDS ORDERED: traZODone HCL 50 MG TAB PO PRN (17:43)
[2022-11-29 18:19] LABS: Chol/HDL Ratio 3.17 Ratio; LDL Cholesterol,Calculated 43.2 mg/dL (0.0-131.0); VLDL Calculation 16.96 mg/dL (5.00-40.00)
[2022-11-29] MEDS ORDERED: INSULIN ASPART (NovoLOG) 100 UNIT/ML VIAL SQ ONE ×2 (18:37→22:32)
[2022-11-29 20:24] LABS: Glucose,Whole Blood 498 mg/dL (70-110)
[2022-11-29] MEDS: INSULIN DETEMIR (LEVEMIR) 100 UNIT/ML SYR SQ SCH (20:29)
[2022-11-29] MEDS: ATORVASTATIN 40 MG TAB PO SCH (20:29)
[2022-11-29 21:58] LABS: Glucose,Whole Blood 213 mg/dL (70-110)
--- NOTE | 2022-11-30 00:42 | PN ---
PROGRESS NOTE SUBJECTIVE: A 77-year-old white female, status post stroke. She is doing a little bit better today. She is going to go to rehab center tomorrow maybe. OBJECTIVE: VITAL SIGNS: Temp 97.5, blood pressure 115/53, oxygen saturation 98% on 2 L, pulse 80, respiratory rate 16 to 18. CARDIOVASCULAR: S1, S2. LUNGS: Scattered rhonchi and wheeze. HEMATOLOGY: Negative Homans. CHEST: Soft. Take her off blood thinners just today. She appears to be getting better at this time. Can go to rehab tomorrow. Status post hemorrhagic parietal strokes, chronic obstructive pulmonary disease, pulmonary hypertension, mastocytosis. Prognosis guarded. Discharge probably tomorrow. MMODL / IJN: [id number] /
[2022-11-30] MEDS: SODIUM CHLORIDE 0.9% 1,000 ML IV SCH (00:55)
[2022-11-30 04:51] LABS: HCT 37.9 % (34.0-46.0); HGB 12.4 gm/dL (11.4-16.0); Hypochromasia Slight; MCH 28.1 pg (25.0-35.0); MCHC 32.7 g/dL (31.0-37.0); MCV 85.9 fL (80.0-100.0); Mean Platelet Volume 12.4; Platelet Count 152 k/uL (150-450); RBC 4.41 m/uL (3.80-5.40); RDW 15.7 % (11.5-15.5); WBC 20.5 k/uL (3.8-10.6)
[2022-11-30 04:55] LABS: ALT 12 U/L (4-34); AST 22 U/L (14-36); African American GFR (CKD) >90 (>60 ml/min/1.73 sqM); Albumin 1.7 g/dL (3.5-5.0); Alkaline Phosphatase 64 U/L (38-126); Anion Gap 5 mmol/L; Blood Urea Nitrogen 19 mg/dL (7-17); Calcium 6.8 mg/dL (8.4-10.2); Carbon Dioxide 21 mmol/L (22-30); Chloride 105 mmol/L (98-107); Glucose 56 mg/dL (74-99); Magnesium 1.7 mg/dL (1.6-2.3); Non-African American GFR(CKD) 85 (>60 ml/min/1.73 sqM); Potassium 4.2 mmol/L (3.5-5.1); Sodium 131 mmol/L (137-145); Total Bilirubin 0.3 mg/dL (0.2-1.3); Total Protein 3.9 g/dL (6.3-8.2)
[2022-11-30 06:25] LABS: Glucose,Whole Blood 118 mg/dL (70-110)
[2022-11-30] MEDS: INSULIN ASPART (NovoLOG) 100 UNIT/ML VIAL SQ SCH ×4 (06:39→20:23)
[2022-11-30] MEDS: LEVOTHYROXINE 100 MCG TAB PO SCH (06:39)
[2022-11-30] MEDS ORDERED: MAGNESIUM SULFATE-D5W PMX 1 GM in DEXTROSE/WATER 1 100ML.BAG IVPB ONE (07:32)
--- NOTE | 2022-11-30 07:41 | PN ---
PROGRESS NOTE ASSESSMENT: Hyponatremia. DICTATION ENDS HERE. MMODL / IJN: [id number] /
[2022-11-30] MEDS: PANTOPRAZOLE 40 MG/10 ML VIAL IV SCH (08:06)
[2022-11-30] MEDS: PIPERACILLIN-TAZOBACTAM 3.375 GM in SODIUM CHLORIDE 0.9% 100 ML IVPB SCH ×2 (08:20→16:33)
[2022-11-30] MEDS: BUDESONIDE 0.5 MG/2 ML NEBU INHALATION SCH ×2 (09:04→21:25)
[2022-11-30] MEDS: IPRATROPIUM-ALBUTEROL 3 ML NEB INHALATION SCH ×4 (09:04→21:25)
--- NOTE | 2022-11-30 09:06 | P.PN ---
Subjective Progress Note Date: 11/29/22 Patient was seen for a follow-up. Patient denies any headache or dizziness. Feels her speech is slightly better. No new weakness, numbness. No new neurological symptoms. Spoke to the nursing staff, patient's speech is improved, flowing easily. Objective - Vital Signs Vital signs: Vital Signs Temp 97.5 F L 11/29/22 15:00 Pulse 86 11/29/22 16:34 Resp 18 11/29/22 15:00 BP 115/53 11/29/22 15:00 Pulse Ox 98 11/29/22 15:00 FiO2 Intake & Output 11/28/22 11/29/22 11/29/22 18:59 06:59 18:59 Intake Total 500 Output Total 1 2000 Balance 499 -2000 Weight 52.2 kg Intake: Oral 500 Output: Drainage 2000 Left Abdomen/Pleurex 1000 Right Abdomen/Pleurex 1000 Stool 1 Other: Voiding Method External Catheter External Catheter # Voids 1 1 1 # Bowel Movements 1 - Exam Patient's mental status is normal. Patient's speech is clear. She has some word hesitancy. Some paraphasic errors. Patient has mild dysarthria. Her repetition has improved. Naming has improved. She can follow directions very well. Intact comprehension. Cranial nerves are normal. Visual silverman are full. On muscle strength testing, patient has right pronation, no drift. The strength is normal. Sensory to touch is equal. No ataxia for [id number] testing. Patient has moderate peripheral edema. - Labs CBC & Chem 7: 11/30/22 04:08 11/30/22 04:08 Labs: Abnormal Lab Results - Last 24 Hours (Table) 11/28/22 11/29/22 11/29/22 Range/Units 20:31 02:15 02:16 WBC (3.8-10.6) k/uL RDW (11.5-15.5) % Plt Count (150-450) k/uL Neutrophils # (Manual) (1.3-7.7) k/uL Monocytes # (Manual) (0-1.0) k/uL Sodium 129 L (137-145) mmol/L Carbon Dioxide 20 L (22-30) mmol/L BUN 19 H (7-17) mg/dL Glucose 199 H (74-99) mg/dL POC Glucose (mg/dL) 228 H (70-110) mg/dL Calcium 7.1 L (8.4-10.2) mg/dL C-Reactive Protein 1.2 H (<1.0) mg/dL Total Protein 4.8 L (6.3-8.2) g/dL Albumin 2.1 L (3.5-5.0) g/dL Procalcitonin 0.37 H (0.02-0.09) ng/mL TSH 65.100 H (0.465-4.680) mIU/L Free T4 0.65 L (0.78-2.19) ng/dL 11/29/22 11/29/22 11/29/22 Range/Units 05:44 05:44 06:56 WBC 21.5 H (3.8-10.6) k/uL RDW 15.7 H (11.5-15.5) % Plt Count 105 L (150-450) k/uL Neutrophils # (Manual) 14.19 H (1.3-7.7) k/uL Monocytes # (Manual) 4.09 H (0-1.0) k/uL Sodium 130 L (137-145) mmol/L Carbon Dioxide 21 L (22-30) mmol/L BUN 18 H (7-17) mg/dL Glucose 181 H (74-99) mg/dL POC Glucose (mg/dL) 238 H (70-110) mg/dL Calcium 6.9 L (8.4-10.2) mg/dL C-Reactive Protein (<1.0) mg/dL Total Protein 4.5 L (6.3-8.2) g/dL Albumin 2.0 L (3.5-5.0) g/dL Procalcitonin (0.02-0.09) ng/mL TSH (0.465-4.680) mIU/L Free T4 (0.78-2.19) ng/dL 11/29/22 11/29/22 Range/Units 11:24 17:22 WBC (3.8-10.6) k/uL RDW (11.5-15.5) % Plt Count (150-450) k/uL Neutrophils # (Manual) (1.3-7.7) k/uL Monocytes # (Manual) (0-1.0) k/uL Sodium (137-145) mmol/L Carbon Dioxide (22-30) mmol/L BUN (7-17) mg/dL Glucose (74-99) mg/dL POC Glucose (mg/dL) 260 H 331 H (70-110) mg/dL Calcium (8.4-10.2) mg/dL C-Reactive Protein (<1.0) mg/dL Total Protein (6.3-8.2) g/dL Albumin (3.5-5.0) g/dL Procalcitonin (0.02-0.09) ng/mL TSH (0.465-4.680) mIU/L Free T4 (0.78-2.19) ng/dL Assessment and Plan Assessment: * Acute ischemic stroke involving the left frontal, parietal and occipital lobes, manifesting with aphasia, right hemiparesis, patient is status post TPA. Her NIH stroke scale documented ER was 7, but now it is 3 (related to mild dysarthria, mild aphasia and right pronator drift). * Diabetes poorly controlled * Heart failure * Hypothyroidism * Hypertension * Hyperlipidemia * Peripheral edema * Recurrent pleural effusion * History of monoclonal B-cell lymphocytosis * X tobacco use Plan: * Patient has received TPA. Patient is somewhat stable * MRI of the brain without contrast revealed foci of acute/subacute ischemia within the left frontal lobe, left parietal lobe and left occipital lobe. Left parietal/frontal region of serpiginous low FLAIR signal with surrounding hyperintense FLAIR signal and susceptibility artifact suggest cortical laminar necrosis. I personally reviewed MRI, agree with the findings. * 2-D echo performed 10/12/2022 revealed left ventricle hypertrophy with preserved systolic function with EF 60-65%. Normal left atrial size. Large pleural effusion with echogenic material. Thickened pericardium, minimal to no effusion. * CTA head and neck showed: No evidence of dissection of the cervical internal carotid arteries or vertebral arteries or any evidence of significant stenosis of the carotid bifurcations. No evidence of intracranial high-grade stenosis or intracranial aneurysm. Bilateral thoracotomy tubes with small bilateral pleural effusion. * Fasting a.m. lipid panel pending * Hemoglobin A1c 12.0 consistent with poorly controlled diabetes. Recommend optimize control of diabetes to target A1c < 7.0 * TSH 70.8, free T4 0.07. Internal medicine to address abnormal thyroid functions. Patient was taking levothyroxine 150 g. Her dose increased to 200 g. * Optimize control of blood pressure to normotensive levels. Avoid hypotension blood pressure less than 110/60 * 24-hour post-TPA CT head showed no acute process. No bleed. * Patient started on aspirin 325 mg. Based upon the results of MRI, patient is high risk for hemorrhagic conversion, therefore will not give DAPT. We will decrease aspirin to 81 mg daily. * Repeat CT head revealed evolution of the left frontal parietal ischemic insult with areas of increased attenuation which may reflect underlying petechial hemorrhage. No evidence for midline shift. I personally reviewed CT head agree with the findings. * Close neuro checks as per protocol. * Telemetry monitoring rule out any arrhythmia * PT, OT, speech therapy. * Other medical management as per IM and other specialties. * DVT prophylaxis: SCDs. * We will discuss with patient's daughter on the phone.
[2022-11-30 09:07] LABS: Eosinophils # (M) 0.21 k/uL (0-0.7); Lymphocytes # (M) 4.51 k/uL (1.0-4.8); Monocytes # (M) 5.13 k/uL (0-1.0); Neutrophils # (M) 10.66 k/uL (1.3-7.7); Neutrophils % (M) 52 %; Nucleated Red Blood Cells 0 /100 WBC (0-0); Total Cells Counted 100
[2022-11-30 09:12] LABS: Large Platelets Present
[2022-11-30] MEDS: ASPIRIN 81 MG PO SCH (09:35)
[2022-11-30 11:54] LABS: Glucose,Whole Blood 116 mg/dL (70-110)
--- NOTE | 2022-11-30 12:30 | CA ---
Transthoracic Echo Report Name: Ping Villalpando Age: 77 Gender: F : 1945 Exam Date: 11/30/2022 08:58 Exam Location: [place] [facility] Ht (in): 60 Wt (lb): 114 Ordering Physician: Familia Bennett MD Attending/Referring Phys: Company Doctor Nirav Levine Procedure CPT: Indications: acute CVA Cardiac Hx: Technical Quality: Good Contrast 1: Agitated Saline Total Dose (mL): 10 Contrast 2: Total Dose (mL): MEASUREMENTS (Male / Female) Normal Values FINDINGS Left Ventricle Right Ventricle Right Atrium Left Atrium Negative agitated saline study. Mitral Valve Aortic Valve Tricuspid Valve Pulmonic Valve Pericardium Aorta CONCLUSIONS NEGATIVE BUBBLE STUDY. Previewed by: Dr. Carlos Palumbo MD (Electronically Signed) Final Date: 30 November 2022 12:30
--- NOTE | 2022-11-30 13:33 | CT ---
EXAMINATION TYPE: CT brain wo con DATE OF EXAM: 11/30/2022 COMPARISON: 11/28/2022 HISTORY: 77-year-old female CVA, TIA, follow-up petechial hemorrhage TECHNIQUE: Examination was done in axial plane without intravenous contrast. Coronal and sagittal r econstructions performed. CT DLP: 1071 mGycm Automated exposure control for dose reduction was used. FINDINGS: Hypodensity lateral left frontoparietal junction redemonstrated with areas of gyriform high density d ensity, overall similar appearance to 11/28/2022. There is no mass effect or extra-axial fluid collect ion. There is no effacement of basal subarachnoid cisterns. There is mild hydrocephalus, Edgar's rati o calculated 0.34. There is no midline shift. IMPRESSION: 1. Redemonstrated subacute infarct lateral left frontoparietal junction with vague areas of minimal p etechial hemorrhage. No midline shift or new hemorrhage seen. 2. Similar mild ventriculomegaly probably due to central cerebral atrophy. Correlate to exclude a com ponent of NPH.
[2022-11-30 13:38] VITALS: BMI 22.3
--- NOTE | 2022-11-30 13:50 | P.PN ---
Subjective Progress Note Date: 11/30/22 I am seeing this patient in new consultation today 11/26/2022 in the intensive care unit for an acute CVA status post TPA infusion. Patient is a 77-year-old female with past medical history significant for diabetes mellitus, hyperlipidemia, hypertension, hypothyroidism, monoclonal B-cell lymphocytosis, and recurrent pleural effusions. Her primary care provider is Dr. Steve Barron. She does follow in the office with Dr. Rodgers for recurrent pleural effusions. Patient recently had a hospital admission for recurrent bilateral pleural effusions, and is status post bilateral Pleurx catheter insertion on 10/19/2022, the patient was discharged home the following day. Patient's most recent fluid analysis was transudative based on Light's criteria, and cytology has always been negative. Patient presented to the emergency room last night after her called EMS immediately after strokelike symptoms presented. The patient was initially aphasic and had significant right-sided hemiparesis. Initial NIH was recorded at 7. In the emergency room, the patient was administered TPA. She has had improvement in her right-sided weakness and some modest improvement in her dysphasia. Her speech is still significantly impaired, and it is difficult to obtain HPI from the patient. Brain CT did not show any acute intracranial abnormalities. Brain CTA did not show any evidence of intracranial or carotid aneurysm, dissection or significant stenosis. Patient is currently sitting up in bed, on room air, in no acute distress. She is frustrated with her expressive dysphasia. Her right-sided hemiparesis appears to have mostly resolved. She may have some minimal right-sided facial weakness. Patient has no evidence of post-TPA bleeding. There is a 24 hr follow-up brain CT ordered. CBC shows a WBC count of 20.7, hemoglobin 11.9, hematocrit 36.9, platelets 103. BMP shows sodium 127, potassium 4.6, chloride 100, serum bicarbonate 21, BUN 29, creatinine 1.13, blood glucose 240. Normal saline is currently infusing at 75 mL per hour. Patient does have 2 Pleurx catheters, with surrounding insertion sites clean and dry. She reportedly drains the catheters every 48 hours. Chest x-ray redemonstrates the bilateral thoracotomy tubes without evidence of pneumothorax and trace to small bilateral pleural effusions. Patient is hemodynamically stable at this time. On 11/27/2022, the patient is clinically stable. She is post CVA. Her speech is a bit delayed that she is able to alter the appropriate words. No new onset focal neurological deficits. The patient received normal at 6 and a repeat CAT scan of the brain was done yesterday at around 8 PM and there was no evidence of any acute process. There is no evidence of any bleeding. The patient was started on oral aspirin for now. Neurology is on the case. Her vitals are stable. She is on 2 L of oxygen by nasal cannula with a pulse ox of 98%. She is hemodynamically stable. Blood pressure is soft. There is no significant hypotension. Her current cardiac rhythm is sinus and the patient is adequately controlled in terms of her rate. The patient was also started on statins and the patient is currently on Lipitor 80 mg by mouth daily. She is on Levemir insulin 10 units in addition to NovoLog sinus Coverage. IV fluids are currently at KVO. She is tolerating diet. No other significant events otherwise for now. Neurology is on the case. The patient was seen and evaluated by neurology yesterday. As mentioned, CTA of the head and the neck showed no evidence of any dissection or carotid artery disease. No evidence of any high-grade stenosis. On 11/28/2022, the patient is still having some struggle and putting her words out although she can ultimately communicate. She is also having some fine motor skills. No new onset focal neurological deficits. MRI of the brain was done yesterday showed a area of acute/subacute ischemia within the left frontal lobe, left parietal lobe and left occipital lobe. Nonspecific white matter changes were also seen consistent with chronic small vessel ischemic change. Note that the MRI also showed a lesion on low signal with surrounding intense activity in the left parietal/frontal region measuring 2.8 cm. This is considered to be artifact versus hemorrhage. I would leave it to the neurologist to interpret those findings. Meanwhile, the patient had drainage of her pleural fluid from the Pleurx catheters bilaterally. A total of 1 L was removed from the right and 900 mL from the left making it a total of 1.9 L. She is on room air oxygen.. Her white cycles of 19.4. Sodium is at 129 with a BUN of 19 and creatinine of 0.6. On 11/29/2022, the patient remains essentially weak and she will benefit from rehabilitation. She is having issues with expressive aphasia. A follow-up CAT scan of the brain was done yesterday showed evolution of left frontal parietal ischemic insult and areas of increased attenuation which will reflect underlying petechial hemorrhage. No evidence of any midline shifts. Neurology was made aware of this changes and aspirin has been At a dose of 81 mg by mouth daily. She is sitting up on a chair and she is communicating. She is on oxygen at 2 L. Noted yesterday she was on room air. She has home oxygen. She will need bilateral drainage of her pleural fluid today. Less drainage was done 48 hours ago. Labs are all stable. White cell count remains quite elevated at 21.5 and hemoglobin is at 14.2. BUN is at 18 with a creatinine of 0.5 and a sodium level is at 1:30. Her pro calcitonin level was at 0.38. A repeat chest x-ray was done today and it showed bilateral pleural effusions and obviously this is chronic and needs to be drained. The patient was placed on Zosyn and panicky by infectious disease On 11/30/2022, the patient is on room air oxygen. She was placed on O2 at 2 L for the purpose of physical therapy and ambulation. Otherwise, no new onset focal neurological deficits. Remains quite weak and she is significant debilitated. She was transferred out of the intensive care unit yesterday. The blood work from today shows a white cell count of 20, hemoglobin 12.4 and a platelet count of 152. BUN is at 19 with a creatinine of 0.67. Sodium level is at 131. A repeat CAT scan of the brain showed subacute infarct involving the left frontal parietal junction with a vague area of minimal petechial hemorrhage. There is also mild ventriculomegaly and cerebral atrophy. A limited echocardiogram was done and the bubble study was negative. She is having occasional headache and dizziness. His speech is improved and she is appropriate that she is aware of time and place and people. No new onset focal neurological deficit at this point in time. Objective - Vital Signs Vital signs: Vital Signs Temp 97.5 F L 11/30/22 08:00 Pulse 77 11/30/22 10:05 Resp 16 11/30/22 10:05 BP 99/65 11/30/22 10:05 Pulse Ox 100 11/30/22 10:05 FiO2 Intake & Output 11/29/22 11/30/22 11/30/22 18:59 06:59 18:59 Intake Total 100 Output Total 1999 Balance -1900 Weight 51.8 kg Intake: Intake, IV Titration 100 Amount Piperacillin-Tazobactam 3 100 .375 gm In Sodium Chloride 0.9% 100 ml @ 25 mls/hr IVPB Q8HR [facility] Rx# :[id number] Output: Drainage 1999 Left Abdomen/Pleurex 1000 Right Abdomen/Pleurex 1000 Other: Voiding Method External Catheter Diaper Diaper Incontinent Incontinent # Voids 1 1 - Exam GENERAL EXAM: Alert, 77-year-old white female appearing stated age, comfortable in no apparent distress., The patient is on room air oxygen HEAD: Normocephalic and atraumatic EYES: Normal reaction of pupils, equal size. NOSE: Clear with pink turbinates. THROAT: No erythema or exudates. NECK: No masses, no JVD. CHEST: No chest wall deformity. Bilateral Pleurx catheters LUNGS: Equal air entry with no crackles, wheeze, rhonchi or dullness. On room air. No conversational dyspnea or accessory muscle use.. CVS: S1 and S2 normal with no audible murmur, regular rhythm. No extra heart sounds ABDOMEN: No hepatosplenomegaly, active bowel sounds, no guarding or rigidity. SPINE: No scoliosis or deformity SKIN: No rashes CENTRAL NERVOUS SYSTEM: Patient is alert. Bilateral upper extremities 4 out of 5 strength, bilateral lower extremities 3 out of 5 strength, there is minimal right-sided facial weakness, no identified visual disturbances, no gaze palsy, follows directions appropriately, no ataxia out of proportion to weakness, no sensory loss, no inattention, patient exhibits severe dysphasia EXTREMITIES: There is 3+ pitting bilateral lower extremity edema. No clubbing, or cyanosis. Peripheral pulses are intact. - Labs CBC & Chem 7: 11/30/22 04:08 11/30/22 04:08 Labs: Abnormal Lab Results - Last 24 Hours (Table) 11/29/22 11/29/22 11/29/22 Range/Units 02:15 02:16 11:24 WBC (3.8-10.6) k/uL RDW (11.5-15.5) % Neutrophils # (Manual) (1.3-7.7) k/uL Monocytes # (Manual) (0-1.0) k/uL Sodium (137-145) mmol/L Carbon Dioxide (22-30) mmol/L BUN (7-17) mg/dL Glucose (74-99) mg/dL POC Glucose (mg/dL) 260 H (70-110) mg/dL Calcium (8.4-10.2) mg/dL Total Protein (6.3-8.2) g/dL Albumin (3.5-5.0) g/dL HDL Cholesterol 27.80 L (40.00-60.00) mg/dL Procalcitonin 0.37 H (0.02-0.09) ng/mL 11/29/22 11/29/22 11/29/22 Range/Units 17:22 20:22 21:57 WBC (3.8-10.6) k/uL RDW (11.5-15.5) % Neutrophils # (Manual) (1.3-7.7) k/uL Monocytes # (Manual) (0-1.0) k/uL Sodium (137-145) mmol/L Carbon Dioxide (22-30) mmol/L BUN (7-17) mg/dL Glucose (74-99) mg/dL POC Glucose (mg/dL) 331 H 498 H 213 H (70-110) mg/dL Calcium (8.4-10.2) mg/dL Total Protein (6.3-8.2) g/dL Albumin (3.5-5.0) g/dL HDL Cholesterol (40.00-60.00) mg/dL Procalcitonin (0.02-0.09) ng/mL 11/30/22 11/30/22 11/30/22 Range/Units 04:08 04:08 06:23 WBC 20.5 H (3.8-10.6) k/uL RDW 15.7 H (11.5-15.5) % Neutrophils # (Manual) 10.66 H (1.3-7.7) k/uL Monocytes # (Manual) 5.13 H (0-1.0) k/uL Sodium 131 L (137-145) mmol/L Carbon Dioxide 21 L (22-30) mmol/L BUN 19 H (7-17) mg/dL Glucose 56 L (74-99) mg/dL POC Glucose (mg/dL) 118 H (70-110) mg/dL Calcium 6.8 L (8.4-10.2) mg/dL Total Protein 3.9 L (6.3-8.2) g/dL Albumin 1.7 L (3.5-5.0) g/dL HDL Cholesterol (40.00-60.00) mg/dL Procalcitonin (0.02-0.09) ng/mL Assessment and Plan Assessment: Acute CVA, status post TPA infusion, with improved right-sided hemiparesis and severe persistent dysphasia. Speech is improved since yesterday. No new focal neurological deficits. MRI of the brain showed areas of acute/subacute infarct involving the left frontal/parietal/occipital lobe. There was also nonspecific white matter changes. Neurology to interpret those findings.. The patient is currently on aspirin. No new onset focal neurological deficit and the patient is still struggling with some difficulties with her speech/depression. The repeat CAT scan of the brain showed evidence of a left frontal/parietal ischemic insult with areas of increased attenuation reflecting petechial hemorrhage. Patient remains on aspirin. Repeat CAT scan of the brain shows stable findings with subacute infarct at the left frontoparietal junction. The patient is undergoing physical therapy for now. Recurrent bilateral pleural effusions, status post Pleurx catheter insertion 10/19/2022. The effusions have been transudate and the patient underwent bilateral drainage yesterday Acute kidney injury, possibly related to contrast induced ATN, improved Leukocytosis, doubt infectious etiology, currently on IV Zosyn, white cell count remains elevated. No clear indication for underlying infection. Thrombocytopenia, stable History of monoclonal B cell lymphocytosis, being followed outpatient by oncology Hyperlipidemia Essential hypertension Diabetes mellitus type 2, insulin-dependent, currently on Levemir insulin at a dose of 10 units Hypothyroidism, TSH was elevated at 70.8 and free T4 was low at 0.07 Ex-smoker Plan: MRI of the brain was noted Repeat CAT scan of the brain was noted, findings are stable Continue aspirin Neurology is on the case Lovenox was discontinued Physical therapy No new onset focal neurological deficits Continue Lipitor 80 mg by mouth daily Limited echocardiogram with Bubble study was done and it was negative Swallowing is adequate Continue Levemir up to 16 units daily Synthroid doses was adjusted Possible inpatient rehabilitation at [facility] We'll continue to follow.
[2022-11-30 16:50] LABS: Glucose,Whole Blood 304 mg/dL (70-110)
[2022-11-30 20:12] LABS: Glucose,Whole Blood 434 mg/dL (70-110)
[2022-11-30] MEDS: INSULIN DETEMIR (LEVEMIR) 100 UNIT/ML SYR SQ SCH (20:23)
[2022-11-30] MEDS: ATORVASTATIN 10 MG TAB PO SCH (20:23)
--- NOTE | 2022-11-30 21:57 | P.PN ---
Subjective Progress Note Date: 11/30/22 Principal diagnosis: Leukocytosis Patient is a 77-year-old female with past medical history significant for diabetes mellitus hypertension hyperlipidemia heart failure with patient did have a history of bilateral effusion recurrent requiring bilateral Pleurx catheter placement, patient presented to hospital with strokelike symptoms did receive tPA noticed to have elevated white count prompted this infectious disease consultation On today's evaluation that is 11/30/2022 patient remains to be afebrile, the patient is breathing comfortably on room air but denies having any chest pain or shortness with occasional cough no nausea vomiting abdominal pain or diarrhea. Patient white count is down to 20,000, creatinine 0.6 7 repeat blood cultures currently pending Objective - Vital Signs Vital signs: Vital Signs Temp 97.5 F L 11/30/22 08:00 Pulse 79 11/30/22 12:00 Resp 18 11/30/22 12:00 BP 91/54 11/30/22 12:00 Pulse Ox 98 11/30/22 12:00 FiO2 Intake & Output 11/29/22 11/30/22 11/30/22 18:59 06:59 18:59 Intake Total 100 180 Output Total 2000 Balance -1900 180 Weight 51.8 kg 51.8 kg Intake: Intake, IV Titration 100 Amount Piperacillin-Tazobactam 3 100 .375 gm In Sodium Chloride 0.9% 100 ml @ 25 mls/hr IVPB Q8HR [facility] Rx# :[id number] Oral 180 Output: Drainage 2000 Left Abdomen/Pleurex 1000 Right Abdomen/Pleurex 1000 Other: Voiding Method External Catheter Diaper Diaper Incontinent Incontinent # Voids 1 1 - Exam GENERAL DESCRIPTION: An elderly female up in the chair in no distress RESPIRATORY SYSTEM: Unlabored breathing , decreased breath sounds at bases HEART: S1 S2 regular rate and rhythm , ABDOMEN: Soft , no tenderness EXTREMITIES: No edema feet - Labs CBC & Chem 7: 11/30/22 04:08 11/30/22 04:08 Labs: Abnormal Lab Results - Last 24 Hours (Table) 11/29/22 11/29/22 11/29/22 Range/Units 02:15 02:16 17:22 WBC (3.8-10.6) k/uL RDW (11.5-15.5) % Neutrophils # (Manual) (1.3-7.7) k/uL Monocytes # (Manual) (0-1.0) k/uL Sodium (137-145) mmol/L Carbon Dioxide (22-30) mmol/L BUN (7-17) mg/dL Glucose (74-99) mg/dL POC Glucose (mg/dL) 331 H (70-110) mg/dL Calcium (8.4-10.2) mg/dL Total Protein (6.3-8.2) g/dL Albumin (3.5-5.0) g/dL HDL Cholesterol 27.80 L (40.00-60.00) mg/dL Procalcitonin 0.37 H (0.02-0.09) ng/mL 11/29/22 11/29/22 11/30/22 Range/Units 20:22 21:57 04:08 WBC (3.8-10.6) k/uL RDW (11.5-15.5) % Neutrophils # (Manual) (1.3-7.7) k/uL Monocytes # (Manual) (0-1.0) k/uL Sodium 131 L (137-145) mmol/L Carbon Dioxide 21 L (22-30) mmol/L BUN 19 H (7-17) mg/dL Glucose 56 L (74-99) mg/dL POC Glucose (mg/dL) 498 H 213 H (70-110) mg/dL Calcium 6.8 L (8.4-10.2) mg/dL Total Protein 3.9 L (6.3-8.2) g/dL Albumin 1.7 L (3.5-5.0) g/dL HDL Cholesterol (40.00-60.00) mg/dL Procalcitonin (0.02-0.09) ng/mL 11/30/22 11/30/22 11/30/22 Range/Units 04:08 06:23 11:52 WBC 20.5 H (3.8-10.6) k/uL RDW 15.7 H (11.5-15.5) % Neutrophils # (Manual) 10.66 H (1.3-7.7) k/uL Monocytes # (Manual) 5.13 H (0-1.0) k/uL Sodium (137-145) mmol/L Carbon Dioxide (22-30) mmol/L BUN (7-17) mg/dL Glucose (74-99) mg/dL POC Glucose (mg/dL) 118 H 116 H (70-110) mg/dL Calcium (8.4-10.2) mg/dL Total Protein (6.3-8.2) g/dL Albumin (3.5-5.0) g/dL HDL Cholesterol (40.00-60.00) mg/dL Procalcitonin (0.02-0.09) ng/mL Microbiology - Last 24 Hours (Table) 11/29/22 05:44 Blood Culture - Preliminary Blood 11/29/22 02:14 Blood Culture - Preliminary Blood Assessment and Plan (1) Leukocytosis Current Visit: No Status: Acute Priority: High Code(s): D72.829 - ELEVATED WHITE BLOOD CELL COUNT, UNSPECIFIED SNOMED Code(s): 459165295 Plan: 1patient with significant leukocytosis in this patient presented to hospital with strokelike symptoms and has received tPA patient did not have any fever during this admission chest x-ray did not show any consolidation however procalcitonin was mildly elevated urine was negative no blood culture done patient abdominal soft on clinical examination and no evidence of any joint swelling or cellulitis 2-blood cultures currently pending patient did have a mildly elevated procalcitonin 0.37 3Patient white count is trending down-patient continue with the Zosyn while waiting for repeat culture to finalize and monitor clinical course closely Dictation was produced using [employer] dictation software. please excuse any grammatical, word or spelling errors.
[2022-11-30 22:31] LABS: Glucose,Whole Blood 387 mg/dL (70-110)
[2022-12-01 00:32] LABS: Glucose,Whole Blood 256 mg/dL (70-110)
[2022-12-01] MEDS: PIPERACILLIN-TAZOBACTAM 3.375 GM in SODIUM CHLORIDE 0.9% 100 ML IVPB SCH ×3 (01:09→17:49)
[2022-12-01] MEDS: SODIUM CHLORIDE 0.9% 1,000 ML IV SCH (01:11)
[2022-12-01 06:04] LABS: Glucose,Whole Blood 128 mg/dL (70-110)
[2022-12-01] MEDS: INSULIN ASPART (NovoLOG) 100 UNIT/ML VIAL SQ SCH ×4 (06:05→20:50)
[2022-12-01] MEDS: LEVOTHYROXINE 100 MCG TAB PO SCH (06:33)
[2022-12-01] MEDS: IPRATROPIUM-ALBUTEROL 3 ML NEB INHALATION SCH ×4 (08:31→19:53)
[2022-12-01] MEDS: BUDESONIDE 0.5 MG/2 ML NEBU INHALATION SCH ×2 (08:31→19:53)
--- NOTE | 2022-12-01 10:20 | P.PN ---
Subjective Progress Note Date: 11/30/22 Patient was seen for a follow-up. Patient denies any headache or dizziness. Feels her speech is slightly better. No new weakness, numbness. No new neurological symptoms. Spoke to the nursing staff, patient's speech is improved, flowing easily. Objective - Vital Signs Vital signs: Vital Signs Temp 97.5 F L 11/30/22 08:00 Pulse 78 11/30/22 08:00 Resp 18 11/30/22 08:00 BP 93/51 11/30/22 08:00 Pulse Ox 93 L 11/30/22 08:00 FiO2 Intake & Output 11/29/22 11/30/22 11/30/22 18:59 06:59 18:59 Intake Total 100 Output Total 2000 Balance -1900 Weight 51.8 kg Intake: Intake, IV Titration 100 Amount Piperacillin-Tazobactam 3 100 .375 gm In Sodium Chloride 0.9% 100 ml @ 25 mls/hr IVPB Q8HR [facility] Rx# :[id number] Output: Drainage 2000 Left Abdomen/Pleurex 1000 Right Abdomen/Pleurex 1000 Other: Voiding Method External Catheter Diaper Incontinent # Voids 1 1 - Exam Patient's mental status is normal. Patient's speech is clear. She has some word hesitancy. Some paraphasic errors particularly while naming objects, not with routine conversation. Patient has mild dysarthria. Her repetition has improved. Naming has much improved. She can follow directions very well. Intact comprehension. Cranial nerves are normal. Visual silverman are full. On muscle strength testing, patient has right pronation, no drift. The strength is normal. Sensory to touch is equal. No ataxia for [id number] testing. Patient has moderate peripheral edema. - Labs CBC & Chem 7: 11/30/22 04:08 11/30/22 04:08 Labs: Abnormal Lab Results - Last 24 Hours (Table) 11/29/22 11/29/22 11/29/22 Range/Units 02:15 02:16 11:24 WBC (3.8-10.6) k/uL RDW (11.5-15.5) % Sodium (137-145) mmol/L Carbon Dioxide (22-30) mmol/L BUN (7-17) mg/dL Glucose (74-99) mg/dL POC Glucose (mg/dL) 260 H (70-110) mg/dL Calcium (8.4-10.2) mg/dL Total Protein (6.3-8.2) g/dL Albumin (3.5-5.0) g/dL HDL Cholesterol 27.80 L (40.00-60.00) mg/dL Procalcitonin 0.37 H (0.02-0.09) ng/mL 11/29/22 11/29/22 11/29/22 Range/Units 17:22 20:22 21:57 WBC (3.8-10.6) k/uL RDW (11.5-15.5) % Sodium (137-145) mmol/L Carbon Dioxide (22-30) mmol/L BUN (7-17) mg/dL Glucose (74-99) mg/dL POC Glucose (mg/dL) 331 H 498 H 213 H (70-110) mg/dL Calcium (8.4-10.2) mg/dL Total Protein (6.3-8.2) g/dL Albumin (3.5-5.0) g/dL HDL Cholesterol (40.00-60.00) mg/dL Procalcitonin (0.02-0.09) ng/mL 11/30/22 11/30/22 11/30/22 Range/Units 04:08 04:08 06:23 WBC 20.5 H (3.8-10.6) k/uL RDW 15.7 H (11.5-15.5) % Sodium 131 L (137-145) mmol/L Carbon Dioxide 21 L (22-30) mmol/L BUN 19 H (7-17) mg/dL Glucose 56 L (74-99) mg/dL POC Glucose (mg/dL) 118 H (70-110) mg/dL Calcium 6.8 L (8.4-10.2) mg/dL Total Protein 3.9 L (6.3-8.2) g/dL Albumin 1.7 L (3.5-5.0) g/dL HDL Cholesterol (40.00-60.00) mg/dL Procalcitonin (0.02-0.09) ng/mL Assessment and Plan Assessment: * Acute ischemic stroke involving the left frontal, parietal and occipital lobes, manifesting with aphasia, right hemiparesis, patient is status post TPA. Her NIH stroke scale documented ER was 7, but now it is 3 (related to mild dysarthria, mild aphasia and right pronator drift). * Diabetes poorly controlled * Heart failure * Hypothyroidism * Hypertension * Hyperlipidemia * Peripheral edema * Recurrent pleural effusion * Possible systemic mastocytosis * X tobacco use Plan: * Patient has received TPA. Patient is stable * MRI of the brain without contrast revealed foci of acute/subacute ischemia within the left frontal lobe, left parietal lobe and left occipital lobe. Left parietal/frontal region of serpiginous low FLAIR signal with surrounding hyperintense FLAIR signal and susceptibility artifact suggest cortical laminar necrosis. I personally reviewed MRI, agree with the findings. * 2-D echo performed 10/12/2022 revealed left ventricle hypertrophy with preserved systolic function with EF 60-65%. Normal left atrial size. Large pleural effusion with echogenic material. Thickened pericardium, minimal to no effusion. * Limited 2-D echo with bubble study 11/30/2022 was negative for PFO. * CTA head and neck showed: No evidence of dissection of the cervical internal carotid arteries or vertebral arteries or any evidence of significant stenosis of the carotid bifurcations. No evidence of intracranial high-grade stenosis or intracranial aneurysm. Bilateral thoracotomy tubes with small bilateral pleural effusion. * Fasting a.m. lipid panel with cholesterol 88, LDL 43, HDL 27 and triglycerides 84. We will change Lipitor from 80 down to 10 mg daily. * Hemoglobin A1c 12.0 consistent with poorly controlled diabetes. Recommend optimize control of diabetes to target A1c < 7.0 * TSH 70.8, free T4 0.07. Internal medicine to address abnormal thyroid functions. Patient was taking levothyroxine 150 g. Her dose increased to 200 g. * Optimize control of blood pressure to normotensive levels. Avoid hypotension blood pressure less than 110/60 * 24-hour post-TPA CT head showed no acute process. No bleed. * Patient started on aspirin 325 mg. Based upon the results of MRI, patient is high risk for hemorrhagic conversion, therefore will not give DAPT. We will decrease aspirin to 81 mg daily. * Repeat CT head performed today revealed redemonstrated subacute infarct lateral left frontoparietal junction with the vague areas of minimal petechial hemorrhage. No midline shift or new hemorrhage seen. I personally reviewed CT head agree with the findings. Similar mild ventricular megaly probably due to central cerebral atrophy. Correlate to exclude a component of NPH. On my review, there is significant cortical atrophy, consistent with amount of ventricular dilation. * Telemetry monitoring rule out any arrhythmia * PT, OT, speech therapy. * Other medical management as per IM and other specialties. * DVT prophylaxis: SCDs. * I discussed with patient's daughter on the phone in detail about her current condition. Informed her about the above test results. She informed me that patient had extensive workup performed at [facility] and has been almost diagnosed with systemic mastocytosis. I will defer that diagnosis to oncology and internal medicine.
[2022-12-01] MEDS: ASPIRIN 81 MG PO SCH (10:21)
[2022-12-01] MEDS: PANTOPRAZOLE 40 MG/10 ML VIAL IV SCH (10:21)
[2022-12-01 11:59] LABS: Glucose,Whole Blood 143 mg/dL (70-110)
--- NOTE | 2022-12-01 13:49 | P.PN ---
Subjective Progress Note Date: 12/01/22 I am seeing this patient in new consultation today 11/26/2022 in the intensive care unit for an acute CVA status post TPA infusion. Patient is a 77-year-old female with past medical history significant for diabetes mellitus, hyperlipidemia, hypertension, hypothyroidism, monoclonal B-cell lymphocytosis, and recurrent pleural effusions. Her primary care provider is Dr. Steve Barron. She does follow in the office with Dr. Rodgers for recurrent pleural effusions. Patient recently had a hospital admission for recurrent bilateral pleural effusions, and is status post bilateral Pleurx catheter insertion on 10/19/2022, the patient was discharged home the following day. Patient's most recent fluid analysis was transudative based on Light's criteria, and cytology has always been negative. Patient presented to the emergency room last night after her called EMS immediately after strokelike symptoms presented. The patient was initially aphasic and had significant right-sided hemiparesis. Initial NIH was recorded at 7. In the emergency room, the patient was administered TPA. She has had improvement in her right-sided weakness and some modest improvement in her dysphasia. Her speech is still significantly impaired, and it is difficult to obtain HPI from the patient. Brain CT did not show any acute intracranial abnormalities. Brain CTA did not show any evidence of intracranial or carotid aneurysm, dissection or significant stenosis. Patient is currently sitting up in bed, on room air, in no acute distress. She is frustrated with her expressive dysphasia. Her right-sided hemiparesis appears to have mostly resolved. She may have some minimal right-sided facial weakness. Patient has no evidence of post-TPA bleeding. There is a 24 hr follow-up brain CT ordered. CBC shows a WBC count of 20.7, hemoglobin 11.9, hematocrit 36.9, platelets 103. BMP shows sodium 127, potassium 4.6, chloride 100, serum bicarbonate 21, BUN 29, creatinine 1.13, blood glucose 240. Normal saline is currently infusing at 75 mL per hour. Patient does have 2 Pleurx catheters, with surrounding insertion sites clean and dry. She reportedly drains the catheters every 48 hours. Chest x-ray redemonstrates the bilateral thoracotomy tubes without evidence of pneumothorax and trace to small bilateral pleural effusions. Patient is hemodynamically stable at this time. On 11/27/2022, the patient is clinically stable. She is post CVA. Her speech is a bit delayed that she is able to alter the appropriate words. No new onset focal neurological deficits. The patient received normal at 6 and a repeat CAT scan of the brain was done yesterday at around 8 PM and there was no evidence of any acute process. There is no evidence of any bleeding. The patient was started on oral aspirin for now. Neurology is on the case. Her vitals are stable. She is on 2 L of oxygen by nasal cannula with a pulse ox of 98%. She is hemodynamically stable. Blood pressure is soft. There is no significant hypotension. Her current cardiac rhythm is sinus and the patient is adequately controlled in terms of her rate. The patient was also started on statins and the patient is currently on Lipitor 80 mg by mouth daily. She is on Levemir insulin 10 units in addition to NovoLog sinus Coverage. IV fluids are currently at KVO. She is tolerating diet. No other significant events otherwise for now. Neurology is on the case. The patient was seen and evaluated by neurology yesterday. As mentioned, CTA of the head and the neck showed no evidence of any dissection or carotid artery disease. No evidence of any high-grade stenosis. On 11/28/2022, the patient is still having some struggle and putting her words out although she can ultimately communicate. She is also having some fine motor skills. No new onset focal neurological deficits. MRI of the brain was done yesterday showed a area of acute/subacute ischemia within the left frontal lobe, left parietal lobe and left occipital lobe. Nonspecific white matter changes were also seen consistent with chronic small vessel ischemic change. Note that the MRI also showed a lesion on low signal with surrounding intense activity in the left parietal/frontal region measuring 2.8 cm. This is considered to be artifact versus hemorrhage. I would leave it to the neurologist to interpret those findings. Meanwhile, the patient had drainage of her pleural fluid from the Pleurx catheters bilaterally. A total of 1 L was removed from the right and 900 mL from the left making it a total of 1.9 L. She is on room air oxygen.. Her white cycles of 19.4. Sodium is at 129 with a BUN of 19 and creatinine of 0.6. On 11/29/2022, the patient remains essentially weak and she will benefit from rehabilitation. She is having issues with expressive aphasia. A follow-up CAT scan of the brain was done yesterday showed evolution of left frontal parietal ischemic insult and areas of increased attenuation which will reflect underlying petechial hemorrhage. No evidence of any midline shifts. Neurology was made aware of this changes and aspirin has been At a dose of 81 mg by mouth daily. She is sitting up on a chair and she is communicating. She is on oxygen at 2 L. Noted yesterday she was on room air. She has home oxygen. She will need bilateral drainage of her pleural fluid today. Less drainage was done 48 hours ago. Labs are all stable. White cell count remains quite elevated at 21.5 and hemoglobin is at 14.2. BUN is at 18 with a creatinine of 0.5 and a sodium level is at 1:30. Her pro calcitonin level was at 0.38. A repeat chest x-ray was done today and it showed bilateral pleural effusions and obviously this is chronic and needs to be drained. The patient was placed on Zosyn and panicky by infectious disease On 11/30/2022, the patient is on room air oxygen. She was placed on O2 at 2 L for the purpose of physical therapy and ambulation. Otherwise, no new onset focal neurological deficits. Remains quite weak and she is significant debilitated. She was transferred out of the intensive care unit yesterday. The blood work from today shows a white cell count of 20, hemoglobin 12.4 and a platelet count of 152. BUN is at 19 with a creatinine of 0.67. Sodium level is at 131. A repeat CAT scan of the brain showed subacute infarct involving the left frontal parietal junction with a vague area of minimal petechial hemorrhage. There is also mild ventriculomegaly and cerebral atrophy. A limited echocardiogram was done and the bubble study was negative. She is having occasional headache and dizziness. His speech is improved and she is appropriate that she is aware of time and place and people. No new onset focal neurological deficit at this point in time. 12/01/2022, the patient is working with physical therapy. No new complaints. Progressively getting stronger. Currently on 2 L of oxygen nasal cannula. No respiratory difficulties. She was covered with IV Zosyn per IDs recommendation. White cell count was elevated and this is a chronic elevation of the white cell count Objective - Vital Signs Vital signs: Vital Signs Temp 97.7 F 12/01/22 08:00 Pulse 80 12/01/22 11:35 Resp 16 12/01/22 11:35 BP 93/58 12/01/22 08:00 Pulse Ox 98 12/01/22 08:32 FiO2 Intake & Output 11/30/22 12/01/22 12/01/22 18:59 06:59 18:59 Intake Total 520 180 Output Total 1750 Balance 520 -1570 Weight 51.8 kg Intake: Intake, IV Titration 100 Amount Piperacillin-Tazobactam 3 100 .375 gm In Sodium Chloride 0.9% 100 ml @ 25 mls/hr IVPB Q8HR [facility] Rx# :[id number] Oral 420 180 Output: Drainage 1750 Left Abdomen/Pleurex 850 Right Abdomen/Pleurex 900 Other: Voiding Method Diaper Diaper Diaper Incontinent Incontinent Incontinent # Voids 2 - Exam GENERAL EXAM: Alert, 77-year-old white female appearing stated age, comfortable in no apparent distress., The patient is on room air oxygen HEAD: Normocephalic and atraumatic EYES: Normal reaction of pupils, equal size. NOSE: Clear with pink turbinates. THROAT: No erythema or exudates. NECK: No masses, no JVD. CHEST: No chest wall deformity. Bilateral Pleurx catheters LUNGS: Equal air entry with no crackles, wheeze, rhonchi or dullness. On room air. No conversational dyspnea or accessory muscle use.. CVS: S1 and S2 normal with no audible murmur, regular rhythm. No extra heart sounds ABDOMEN: No hepatosplenomegaly, active bowel sounds, no guarding or rigidity. SPINE: No scoliosis or deformity SKIN: No rashes CENTRAL NERVOUS SYSTEM: Patient is alert. Bilateral upper extremities 4 out of 5 strength, bilateral lower extremities 3 out of 5 strength, there is minimal right-sided facial weakness, no identified visual disturbances, no gaze palsy, follows directions appropriately, no ataxia out of proportion to weakness, no sensory loss, no inattention, patient exhibits severe dysphasia EXTREMITIES: There is 3+ pitting bilateral lower extremity edema. No clubbing, or cyanosis. Peripheral pulses are intact. - Labs CBC & Chem 7: 11/30/22 04:08 11/30/22 04:08 Labs: Abnormal Lab Results - Last 24 Hours (Table) 11/30/22 11/30/22 11/30/22 Range/Units 16:48 20:10 22:13 POC Glucose (mg/dL) 304 H 434 H 387 H (70-110) mg/dL 12/01/22 12/01/22 12/01/22 Range/Units 00:13 06:02 11:58 POC Glucose (mg/dL) 256 H 128 H 143 H (70-110) mg/dL Microbiology - Last 24 Hours (Table) 11/29/22 05:44 Blood Culture - Preliminary Blood 11/29/22 02:14 Blood Culture - Preliminary Blood Assessment and Plan Assessment: Acute CVA, status post TPA infusion, with improved right-sided hemiparesis and severe persistent dysphasia. Speech is improved since yesterday. No new focal neurological deficits. MRI of the brain showed areas of acute/subacute infarct involving the left frontal/parietal/occipital lobe. There was also nonspecific white matter changes. Neurology to interpret those findings.. The patient is currently on aspirin. No new onset focal neurological deficit and the patient is still struggling with some difficulties with her speech/depression. The repeat CAT scan of the brain showed evidence of a left frontal/parietal ischemic insult with areas of increased attenuation reflecting petechial hemorrhage. Patient remains on aspirin. Repeat CAT scan of the brain shows stable findings with subacute infarct at the left frontoparietal junction. The patient is undergoing physical therapy for now. Recurrent bilateral pleural effusions, status post Pleurx catheter insertion 10/19/2022. The effusions have been transudate and the patient underwent bilateral drainage yesterday Acute kidney injury, possibly related to contrast induced ATN, improved Leukocytosis, doubt infectious etiology, currently on IV Zosyn, white cell count remains elevated. No clear indication for underlying infection. Thrombocytopenia, stable History of monoclonal B cell lymphocytosis, being followed outpatient by oncology Hyperlipidemia Essential hypertension Diabetes mellitus type 2, insulin-dependent, currently on Levemir insulin at a dose of 10 units Hypothyroidism, TSH was elevated at 70.8 and free T4 was low at 0.07 Ex-smoker Plan: Clinically stable MRI of the brain was noted Repeat CAT scan of the brain was noted, findings are stable Continue aspirin Neurology is on the case Lovenox was discontinued Physical therapy No new onset focal neurological deficits Continue Lipitor 80 mg by mouth daily Limited echocardiogram with Bubble study was done and it was negative Swallowing is adequate Continue Levemir up to 16 units daily Synthroid doses was adjusted Possible inpatient rehabilitation at [facility] We'll continue to follow. Very much debilitated. White cell count elevation is chronic
--- NOTE | 2022-12-01 16:36 | P.PN ---
Subjective Progress Note Date: 12/01/22 Principal diagnosis: Leukocytosis Patient is a 77-year-old female with past medical history significant for diabetes mellitus hypertension hyperlipidemia heart failure with patient did have a history of bilateral effusion recurrent requiring bilateral Pleurx catheter placement, patient presented to hospital with strokelike symptoms did receive tPA noticed to have elevated white count prompted this infectious disease consultation On today's evaluation that is 12/01/2022 patient continues to be afebrile, the patient is breathing comfortably on room air, the patient denies having any chest pain or shortness with occasional cough no nausea vomiting abdominal pain or diarrhea. Patient white count is down to 20,000, creatinine 0.6 7 as of yesterday no blood work has been done today repeat blood cultures so far negative Objective - Vital Signs Vital signs: Vital Signs Temp 97.5 F L 12/01/22 15:36 Pulse 84 12/01/22 15:36 Resp 16 12/01/22 15:36 BP 97/60 12/01/22 15:36 Pulse Ox 98 12/01/22 15:36 FiO2 Intake & Output 11/30/22 12/01/22 12/01/22 18:59 06:59 18:59 Intake Total 520 360 Output Total 1750 Balance 520 -1390 Weight 51.8 kg Intake: Intake, IV Titration 100 Amount Piperacillin-Tazobactam 3 100 .375 gm In Sodium Chloride 0.9% 100 ml @ 25 mls/hr IVPB Q8HR [facility] Rx# :[id number] Oral 420 360 Output: Drainage 1750 Left Abdomen/Pleurex 850 Right Abdomen/Pleurex 900 Other: Voiding Method Diaper Diaper Diaper Incontinent Incontinent Incontinent # Voids 2 4 # Bowel Movements 1 - Exam GENERAL DESCRIPTION: An elderly female up in the chair in no distress RESPIRATORY SYSTEM: Unlabored breathing , decreased breath sounds at bases HEART: S1 S2 regular rate and rhythm , ABDOMEN: Soft , no tenderness EXTREMITIES: No edema feet - Labs CBC & Chem 7: 11/30/22 04:08 11/30/22 04:08 Labs: Abnormal Lab Results - Last 24 Hours (Table) 11/30/22 11/30/22 11/30/22 Range/Units 16:48 20:10 22:13 POC Glucose (mg/dL) 304 H 434 H 387 H (70-110) mg/dL 12/01/22 12/01/22 12/01/22 Range/Units 00:13 06:02 11:58 POC Glucose (mg/dL) 256 H 128 H 143 H (70-110) mg/dL Microbiology - Last 24 Hours (Table) 11/29/22 05:44 Blood Culture - Preliminary Blood 11/29/22 02:14 Blood Culture - Preliminary Blood Assessment and Plan (1) Leukocytosis Current Visit: No Status: Acute Priority: High Code(s): D72.829 - ELEVATED WHITE BLOOD CELL COUNT, UNSPECIFIED SNOMED Code(s): 027744589 Plan: 1patient with significant leukocytosis in this patient presented to hospital with strokelike symptoms and has received tPA patient did not have any fever during this admission chest x-ray did not show any consolidation however procalcitonin was mildly elevated urine was negative no blood culture done patient abdominal soft on clinical examination and no evidence of any joint swelling or cellulitis 2-blood cultures currently pending patient did have a mildly elevated procalcitonin 0.37 3Patient did have improvement in her leukocytosis and will continue with the Zosyn will repeat a CBC with a.m. lab Dictation was produced using [employer] dictation software. please excuse any grammatical, word or spelling errors. Time with Patient: Less than 30
[2022-12-01 17:00] LABS: Glucose,Whole Blood 155 mg/dL (70-110)
[2022-12-01 19:44] LABS: Glucose,Whole Blood 232 mg/dL (70-110)
[2022-12-01] MEDS: INSULIN DETEMIR (LEVEMIR) 100 UNIT/ML SYR SQ SCH (20:49)
[2022-12-01] MEDS: ATORVASTATIN 10 MG TAB PO SCH (20:49)
[2022-12-02] MEDS: SODIUM CHLORIDE 0.9% 1,000 ML IV SCH (00:26)
[2022-12-02] MEDS: PIPERACILLIN-TAZOBACTAM 3.375 GM in SODIUM CHLORIDE 0.9% 100 ML IVPB SCH ×3 (00:39→16:26)
[2022-12-02 05:54] LABS: Glucose,Whole Blood 58 mg/dL (70-110)
[2022-12-02] MEDS: PANTOPRAZOLE 40 MG TABLET PO SCH (06:26)
[2022-12-02] MEDS: LEVOTHYROXINE 100 MCG TAB PO SCH (06:26)
[2022-12-02] MEDS: INSULIN ASPART (NovoLOG) 100 UNIT/ML VIAL SQ SCH ×4 (06:26→20:44)
[2022-12-02 06:30] LABS: Glucose,Whole Blood 91 mg/dL (70-110)
[2022-12-02 08:19] LABS: HCT 37.6 % (34.0-46.0); HGB 12.2 gm/dL (11.4-16.0); MCH 27.8 pg (25.0-35.0); MCHC 32.4 g/dL (31.0-37.0); MCV 85.7 fL (80.0-100.0); Mean Platelet Volume 11.6; Platelet Count 160 k/uL (150-450); RBC 4.39 m/uL (3.80-5.40); RDW 15.7 % (11.5-15.5); WBC 20.3 k/uL (3.8-10.6)
[2022-12-02] MEDS: IPRATROPIUM-ALBUTEROL 3 ML NEB INHALATION SCH ×4 (08:39→20:00)
[2022-12-02] MEDS: BUDESONIDE 0.5 MG/2 ML NEBU INHALATION SCH ×2 (08:39→20:00)
[2022-12-02 08:46] LABS: ALT 22 U/L (4-34); AST 50 U/L (14-36); African American GFR (CKD) >90 (>60 ml/min/1.73 sqM); Albumin 1.8 g/dL (3.5-5.0); Alkaline Phosphatase 70 U/L (38-126); Anion Gap 6 mmol/L; Blood Urea Nitrogen 15 mg/dL (7-17); C Reactive Protein 0.6 mg/dL (<1.0); Calcium 6.8 mg/dL (8.4-10.2); Carbon Dioxide 19 mmol/L (22-30); Chloride 104 mmol/L (98-107); Glucose 164 mg/dL (74-99); Non-African American GFR(CKD) 89 (>60 ml/min/1.73 sqM); Potassium 4.1 mmol/L (3.5-5.1); Sodium 129 mmol/L (137-145); Total Bilirubin 0.3 mg/dL (0.2-1.3); Total Protein 4.2 g/dL (6.3-8.2)
[2022-12-02 09:35] LABS: Band Neutrophils % 9 %; Lymphocytes # (M) 2.64 k/uL (1.0-4.8); Monocytes # (M) 1.62 k/uL (0-1.0); Neutrophils % (M) 70 %; Nucleated Red Blood Cells 0 /100 WBC (0-0); Total Cells Counted 100
[2022-12-02 11:36] LABS: Glucose,Whole Blood 98 mg/dL (70-110)
--- NOTE | 2022-12-02 11:46 | P.PN ---
Subjective Progress Note Date: 12/02/22 I am seeing this patient in new consultation today 11/26/2022 in the intensive care unit for an acute CVA status post TPA infusion. Patient is a 77-year-old female with past medical history significant for diabetes mellitus, hyperlipidemia, hypertension, hypothyroidism, monoclonal B-cell lymphocytosis, and recurrent pleural effusions. Her primary care provider is Dr. Steve Barron. She does follow in the office with Dr. Rodgers for recurrent pleural effusions. Patient recently had a hospital admission for recurrent bilateral pleural effusions, and is status post bilateral Pleurx catheter insertion on 10/19/2022, the patient was discharged home the following day. Patient's most recent fluid analysis was transudative based on Light's criteria, and cytology has always been negative. Patient presented to the emergency room last night after her called EMS immediately after strokelike symptoms presented. The patient was initially aphasic and had significant right-sided hemiparesis. Initial NIH was recorded at 7. In the emergency room, the patient was administered TPA. She has had improvement in her right-sided weakness and some modest improvement in her dysphasia. Her speech is still significantly impaired, and it is difficult to obtain HPI from the patient. Brain CT did not show any acute intracranial abnormalities. Brain CTA did not show any evidence of intracranial or carotid aneurysm, dissection or significant stenosis. Patient is currently sitting up in bed, on room air, in no acute distress. She is frustrated with her expressive dysphasia. Her right-sided hemiparesis appears to have mostly resolved. She may have some minimal right-sided facial weakness. Patient has no evidence of post-TPA bleeding. There is a 24 hr follow-up brain CT ordered. CBC shows a WBC count of 20.7, hemoglobin 11.9, hematocrit 36.9, platelets 103. BMP shows sodium 127, potassium 4.6, chloride 100, serum bicarbonate 21, BUN 29, creatinine 1.13, blood glucose 240. Normal saline is currently infusing at 75 mL per hour. Patient does have 2 Pleurx catheters, with surrounding insertion sites clean and dry. She reportedly drains the catheters every 48 hours. Chest x-ray redemonstrates the bilateral thoracotomy tubes without evidence of pneumothorax and trace to small bilateral pleural effusions. Patient is hemodynamically stable at this time. On 11/27/2022, the patient is clinically stable. She is post CVA. Her speech is a bit delayed that she is able to alter the appropriate words. No new onset focal neurological deficits. The patient received normal at 6 and a repeat CAT scan of the brain was done yesterday at around 8 PM and there was no evidence of any acute process. There is no evidence of any bleeding. The patient was started on oral aspirin for now. Neurology is on the case. Her vitals are stable. She is on 2 L of oxygen by nasal cannula with a pulse ox of 98%. She is hemodynamically stable. Blood pressure is soft. There is no significant hypotension. Her current cardiac rhythm is sinus and the patient is adequately controlled in terms of her rate. The patient was also started on statins and the patient is currently on Lipitor 80 mg by mouth daily. She is on Levemir insulin 10 units in addition to NovoLog sinus Coverage. IV fluids are currently at KVO. She is tolerating diet. No other significant events otherwise for now. Neurology is on the case. The patient was seen and evaluated by neurology yesterday. As mentioned, CTA of the head and the neck showed no evidence of any dissection or carotid artery disease. No evidence of any high-grade stenosis. On 11/28/2022, the patient is still having some struggle and putting her words out although she can ultimately communicate. She is also having some fine motor skills. No new onset focal neurological deficits. MRI of the brain was done yesterday showed a area of acute/subacute ischemia within the left frontal lobe, left parietal lobe and left occipital lobe. Nonspecific white matter changes were also seen consistent with chronic small vessel ischemic change. Note that the MRI also showed a lesion on low signal with surrounding intense activity in the left parietal/frontal region measuring 2.8 cm. This is considered to be artifact versus hemorrhage. I would leave it to the neurologist to interpret those findings. Meanwhile, the patient had drainage of her pleural fluid from the Pleurx catheters bilaterally. A total of 1 L was removed from the right and 900 mL from the left making it a total of 1.9 L. She is on room air oxygen.. Her white cycles of 19.4. Sodium is at 129 with a BUN of 19 and creatinine of 0.6. On 11/29/2022, the patient remains essentially weak and she will benefit from rehabilitation. She is having issues with expressive aphasia. A follow-up CAT scan of the brain was done yesterday showed evolution of left frontal parietal ischemic insult and areas of increased attenuation which will reflect underlying petechial hemorrhage. No evidence of any midline shifts. Neurology was made aware of this changes and aspirin has been At a dose of 81 mg by mouth daily. She is sitting up on a chair and she is communicating. She is on oxygen at 2 L. Noted yesterday she was on room air. She has home oxygen. She will need bilateral drainage of her pleural fluid today. Less drainage was done 48 hours ago. Labs are all stable. White cell count remains quite elevated at 21.5 and hemoglobin is at 14.2. BUN is at 18 with a creatinine of 0.5 and a sodium level is at 1:30. Her pro calcitonin level was at 0.38. A repeat chest x-ray was done today and it showed bilateral pleural effusions and obviously this is chronic and needs to be drained. The patient was placed on Zosyn and panicky by infectious disease On 11/30/2022, the patient is on room air oxygen. She was placed on O2 at 2 L for the purpose of physical therapy and ambulation. Otherwise, no new onset focal neurological deficits. Remains quite weak and she is significant debilitated. She was transferred out of the intensive care unit yesterday. The blood work from today shows a white cell count of 20, hemoglobin 12.4 and a platelet count of 152. BUN is at 19 with a creatinine of 0.67. Sodium level is at 131. A repeat CAT scan of the brain showed subacute infarct involving the left frontal parietal junction with a vague area of minimal petechial hemorrhage. There is also mild ventriculomegaly and cerebral atrophy. A limited echocardiogram was done and the bubble study was negative. She is having occasional headache and dizziness. His speech is improved and she is appropriate that she is aware of time and place and people. No new onset focal neurological deficit at this point in time. 12/01/2022, the patient is working with physical therapy. No new complaints. Progressively getting stronger. Currently on 2 L of oxygen nasal cannula. No respiratory difficulties. She was covered with IV Zosyn per IDs recommendation. White cell count was elevated and this is a chronic elevation of the white cell count 12/02/2022, no new complaints resting comfortably in bed, currently on 2 L of oxygen nasal cannula. No new onset focal neurological deficit. White cell count remains elevated at 20.3 with a hemoglobin of 12.2. Sodium level is at 129, BUN is at 15 with a creatinine of 0.57 no change in her medication. Aspirin has been discontinued as the patient was having some minimal petechial hemorrhage post CVA and post-thrombolytics. Objective - Vital Signs Vital signs: Vital Signs Temp 97.4 F L 12/02/22 09:03 Pulse 88 12/02/22 09:03 Resp 16 12/02/22 09:03 BP 105/55 12/02/22 09:03 Pulse Ox 98 12/02/22 09:03 FiO2 Intake & Output 12/01/22 12/02/22 12/02/22 18:59 06:59 18:59 Intake Total 598 370 30 Output Total 1750 Balance -1152 370 30 Intake: IV 70 30 Sodium Chloride 0.9% 1, 70 30 000 ml @ 10 mls/hr IV . Q24H [facility] Rx#:[id number] Intake, IV Titration 100 Amount Piperacillin-Tazobactam 3 100 .375 gm In Sodium Chloride 0.9% 100 ml @ 25 mls/hr IVPB Q8HR [facility] Rx# :[id number] Oral 598 200 Output: Drainage 1750 Left Abdomen/Pleurex 850 Right Abdomen/Pleurex 900 Other: Voiding Method Diaper Diaper Diaper Incontinent Incontinent Incontinent # Voids 1 1 1 # Bowel Movements 1 - Exam GENERAL EXAM: Alert, 77-year-old white female appearing stated age, comfortable in no apparent distress., The patient is on room air oxygen HEAD: Normocephalic and atraumatic EYES: Normal reaction of pupils, equal size. NOSE: Clear with pink turbinates. THROAT: No erythema or exudates. NECK: No masses, no JVD. CHEST: No chest wall deformity. Bilateral Pleurx catheters LUNGS: Equal air entry with no crackles, wheeze, rhonchi or dullness. On room air. No conversational dyspnea or accessory muscle use.. CVS: S1 and S2 normal with no audible murmur, regular rhythm. No extra heart sounds ABDOMEN: No hepatosplenomegaly, active bowel sounds, no guarding or rigidity. SPINE: No scoliosis or deformity SKIN: No rashes CENTRAL NERVOUS SYSTEM: Patient is alert. Bilateral upper extremities 4 out of 5 strength, bilateral lower extremities 3 out of 5 strength, there is minimal right-sided facial weakness, no identified visual disturbances, no gaze palsy, follows directions appropriately, no ataxia out of proportion to weakness, no sensory loss, no inattention, patient exhibits severe dysphasia EXTREMITIES: There is 3+ pitting bilateral lower extremity edema. No clubbing, or cyanosis. Peripheral pulses are intact. - Labs CBC & Chem 7: 12/02/22 07:31 12/02/22 07:31 Labs: Abnormal Lab Results - Last 24 Hours (Table) 12/01/22 12/01/22 12/01/22 Range/Units 11:58 16:29 19:41 WBC (3.8-10.6) k/uL RDW (11.5-15.5) % Neutrophils # (Manual) (1.3-7.7) k/uL Monocytes # (Manual) (0-1.0) k/uL Sodium (137-145) mmol/L Carbon Dioxide (22-30) mmol/L Glucose (74-99) mg/dL POC Glucose (mg/dL) 143 H 155 H 232 H (70-110) mg/dL Calcium (8.4-10.2) mg/dL AST (14-36) U/L Total Protein (6.3-8.2) g/dL Albumin (3.5-5.0) g/dL 12/02/22 12/02/22 12/02/22 Range/Units 05:51 07:31 07:31 WBC 20.3 H (3.8-10.6) k/uL RDW 15.7 H (11.5-15.5) % Neutrophils # (Manual) 16.00 H (1.3-7.7) k/uL Monocytes # (Manual) 1.62 H (0-1.0) k/uL Sodium 129 L (137-145) mmol/L Carbon Dioxide 19 L (22-30) mmol/L Glucose 164 H (74-99) mg/dL POC Glucose (mg/dL) 58 L (70-110) mg/dL Calcium 6.8 L (8.4-10.2) mg/dL AST 50 H (14-36) U/L Total Protein 4.2 L (6.3-8.2) g/dL Albumin 1.8 L (3.5-5.0) g/dL Microbiology - Last 24 Hours (Table) 11/29/22 05:44 Blood Culture - Preliminary Blood 11/29/22 02:14 Blood Culture - Preliminary Blood Assessment and Plan Assessment: Acute CVA, status post TPA infusion, with improved right-sided hemiparesis and severe persistent dysphasia. Speech is improved since yesterday. No new focal neurological deficits. MRI of the brain showed areas of acute/subacute infarct involving the left frontal/parietal/occipital lobe. There was also nonspecific white matter changes. Neurology to interpret those findings.. The patient is currently on aspirin. No new onset focal neurological deficit and the patient is still struggling with some difficulties with her speech/depression. The repeat CAT scan of the brain showed evidence of a left frontal/parietal ischemic insult with areas of increased attenuation reflecting petechial hemorrhage. Patient remains offaspirin. Repeat CAT scan of the brain shows stable findings with subacute infarct at the left frontoparietal junction. The patient is under going physical therapy for now. Aspirin has been held Recurrent bilateral pleural effusions, status post Pleurx catheter insertion 10/19/2022. The effusions have been transudate and the patient underwent bilateral drainage yesterday Acute kidney injury, possibly related to contrast induced ATN, improved Leukocytosis, doubt infectious etiology, currently on IV Zosyn, white cell count remains elevated. No clear indication for underlying infection. There is a chronic hyponatremia Thrombocytopenia, stable History of monoclonal B cell lymphocytosis, being followed outpatient by oncology Hyperlipidemia Essential hypertension Diabetes mellitus type 2, insulin-dependent, currently on Levemir insulin at a dose of 10 units Hypothyroidism, TSH was elevated at 70.8 and free T4 was low at 0.07 Ex-smoker Plan: Clinically stable No aspirin MRI of the brain was noted Repeat CAT scan of the brain was noted, findings are stable Neurology is on the case Lovenox was discontinued Physical therapy No new onset focal neurological deficits Continue Lipitor 80 mg by mouth daily Limited echocardiogram with Bubble study was done and it was negative Swallowing is adequate Continue Levemir up to 16 units daily Synthroid doses was adjusted Possible inpatient rehabilitation at [facility] We'll continue to follow. Very much debilitated. White cell count elevation is chronic Rehab on Saturday
--- NOTE | 2022-12-02 12:05 | P.PN ---
Subjective Progress Note Date: 12/01/22 Patient was seen for a follow-up. Patient denies any headache or dizziness. Feels her speech is slightly better. No new weakness, numbness. No new neurological symptoms. Spoke to the nursing staff, patient's speech is improved, conversation flowing easily. Objective - Vital Signs Vital signs: Vital Signs Temp 96.3 F L 12/01/22 12:00 Pulse 88 12/01/22 12:00 Resp 16 12/01/22 12:00 BP 95/61 12/01/22 12:00 Pulse Ox 99 12/01/22 12:00 FiO2 Intake & Output 11/30/22 12/01/22 12/01/22 18:59 06:59 18:59 Intake Total 520 180 Output Total 1750 Balance 520 -1570 Weight 51.8 kg Intake: Intake, IV Titration 100 Amount Piperacillin-Tazobactam 3 100 .375 gm In Sodium Chloride 0.9% 100 ml @ 25 mls/hr IVPB Q8HR [facility] Rx# :[id number] Oral 420 180 Output: Drainage 1750 Left Abdomen/Pleurex 850 Right Abdomen/Pleurex 900 Other: Voiding Method Diaper Diaper Diaper Incontinent Incontinent Incontinent # Voids 2 - Exam Patient's mental status is normal. Patient's speech is clear. She has some word hesitancy. Some paraphasic errors particularly while naming objects, not with routine conversation. Patient has mild dysarthria. Her repetition has improved. Naming has much improved. She can follow directions very well. Intact comprehension. Cranial nerves are normal. Visual silverman are full. On muscle strength testing, patient has right pronation, no drift. The strength is normal. Sensory to touch is equal. No ataxia for [id number] testing. Patient has moderate peripheral edema. - Labs CBC & Chem 7: 12/02/22 07:31 12/02/22 07:31 Labs: Abnormal Lab Results - Last 24 Hours (Table) 11/30/22 11/30/22 11/30/22 Range/Units 16:48 20:10 22:13 POC Glucose (mg/dL) 304 H 434 H 387 H (70-110) mg/dL 12/01/22 12/01/22 12/01/22 Range/Units 00:13 06:02 11:58 POC Glucose (mg/dL) 256 H 128 H 143 H (70-110) mg/dL Microbiology - Last 24 Hours (Table) 11/29/22 05:44 Blood Culture - Preliminary Blood 11/29/22 02:14 Blood Culture - Preliminary Blood Assessment and Plan Assessment: * Acute ischemic stroke involving the left frontal, parietal and occipital lobes, manifesting with aphasia, right hemiparesis, patient is status post TPA. Her NIH stroke scale documented ER was 7, but now it is 3 (related to mild dysarthria, mild aphasia and right pronator drift). * Diabetes poorly controlled * Heart failure * Hypothyroidism * Hypertension * Hyperlipidemia * Peripheral edema * Recurrent pleural effusion * Possible systemic mastocytosis * X tobacco use Plan: * Patient has received TPA. Patient is stable * MRI of the brain without contrast revealed foci of acute/subacute ischemia within the left frontal lobe, left parietal lobe and left occipital lobe. Left parietal/frontal region of serpiginous low FLAIR signal with surrounding hyperintense FLAIR signal and susceptibility artifact suggest cortical laminar necrosis. I personally reviewed MRI, agree with the findings. * 2-D echo performed 10/12/2022 revealed left ventricle hypertrophy with preserved systolic function with EF 60-65%. Normal left atrial size. Large pleural effusion with echogenic material. Thickened pericardium, minimal to n o effusion. * Limited 2-D echo with bubble study 11/30/2022 was negative for PFO. * CTA head and neck showed: No evidence of dissection of the cervical internal carotid arteries or vertebral arteries or any evidence of significant stenosis of the carotid bifurcations. No evidence of intracranial high-grade stenosis or intracranial aneurysm. Bilateral thoracotomy tubes with small bilateral pleural effusion. * Fasting a.m. lipid panel with cholesterol 88, LDL 43, HDL 27 and triglycerides 84. We will change Lipitor from 80 down to 10 mg daily. * Hemoglobin A1c 12.0 consistent with poorly controlled diabetes. Recommend optimize control of diabetes to target A1c < 7.0 * TSH 70.8, free T4 0.07. Internal medicine to address abnormal thyroid fun ctions. Patient was taking levothyroxine 150 g. Her dose increased to 200 g. * Optimize control of blood pressure to normotensive levels. Avoid hypotension blood pressure less than 110/60 * 24-hour post-TPA CT head showed no acute process. No bleed. * Patient started on aspirin 325 mg. Based upon the results of MRI, patient is high risk for hemorrhagic conversion, therefore will not give DAPT. We will decrease aspirin to 81 mg daily. * Repeat CT head performed 11/30/2022 revealed redemonstrated subacute infarct lateral left frontoparietal junction with the vague areas of minimal petechial hemorrhage. No midline shift or new hemorrhage seen. I personally reviewed CT head agree with the findings. Similar mild ventriculomegaly probably due to central cerebral atrophy. Correlate to exclude a component of NPH. On my review, there is significant cortical atrophy, consistent with amount of ventricular dilation. * Due to persistent petechial hemorrhage, recommend holding aspirin for 7 days. Then resume aspirin 81 mg daily. Discussed with primary physician, agree with the plan. I will contact patient's daughter about the plan. * Telemetry monitoring rule out any arrhythmia * PT, OT, speech therapy. * Other medical management as per IM and other specialties. * DVT prophylaxis: SCDs. * Patient is otherwise stable neurologically. Dr. Lloyd Claire to resume neurology service from Saturday.
--- NOTE | 2022-12-02 15:38 | P.PN ---
Subjective Progress Note Date: 12/02/22 Principal diagnosis: Leukocytosis Patient is a 77-year-old female with past medical history significant for diabetes mellitus hypertension hyperlipidemia heart failure with patient did have a history of bilateral effusion recurrent requiring bilateral Pleurx catheter placement, patient presented to hospital with strokelike symptoms did receive tPA noticed to have elevated white count prompted this infectious disease consultation On today's evaluation that is 12/02/2022 patient remains to be afebrile, the patient is breathing comfortably on room air. Denies having any chest pain shortness of breath or cough no abdominal pain or diarrhea. Patient white count is still elevated 20.3 creatinine 0.57 blood culture has been negative Objective - Vital Signs Vital signs: Vital Signs Temp 96.9 F L 12/02/22 12:00 Pulse 75 12/02/22 12:00 Resp 16 12/02/22 12:00 BP 97/55 12/02/22 12:00 Pulse Ox 100 12/02/22 12:00 FiO2 Intake & Output 12/01/22 12/02/22 12/02/22 18:59 06:59 18:59 Intake Total 598 370 30 Output Total 1750 Balance -1152 370 30 Intake: IV 70 30 Sodium Chloride 0.9% 1, 70 30 000 ml @ 10 mls/hr IV . Q24H [facility] Rx#:[id number] Intake, IV Titration 100 Amount Piperacillin-Tazobactam 3 100 .375 gm In Sodium Chloride 0.9% 100 ml @ 25 mls/hr IVPB Q8HR [facility] Rx# :[id number] Oral 598 200 Output: Drainage 1750 Left Abdomen/Pleurex 850 Right Abdomen/Pleurex 900 Other: Voiding Method Diaper Diaper Diaper Incontinent Incontinent Incontinent # Voids 1 1 1 # Bowel Movements 1 - Exam GENERAL DESCRIPTION: An elderly female up in the chair in no distress RESPIRATORY SYSTEM: Unlabored breathing , decreased breath sounds at bases HEART: S1 S2 regular rate and rhythm , ABDOMEN: Soft , no tenderness EXTREMITIES: No edema feet - Labs CBC & Chem 7: 12/02/22 07:31 12/02/22 07:31 Labs: Abnormal Lab Results - Last 24 Hours (Table) 12/01/22 12/01/22 12/02/22 Range/Units 16:29 19:41 05:51 WBC (3.8-10.6) k/uL RDW (11.5-15.5) % Neutrophils # (Manual) (1.3-7.7) k/uL Monocytes # (Manual) (0-1.0) k/uL Sodium (137-145) mmol/L Carbon Dioxide (22-30) mmol/L Glucose (74-99) mg/dL POC Glucose (mg/dL) 155 H 232 H 58 L (70-110) mg/dL Calcium (8.4-10.2) mg/dL AST (14-36) U/L Total Protein (6.3-8.2) g/dL Albumin (3.5-5.0) g/dL TSH (0.465-4.680) mIU/L 12/02/22 12/02/22 12/02/22 Range/Units 07:31 07:31 07:31 WBC 20.3 H (3.8-10.6) k/uL RDW 15.7 H (11.5-15.5) % Neutrophils # (Manual) 16.00 H (1.3-7.7) k/uL Monocytes # (Manual) 1.62 H (0-1.0) k/uL Sodium 129 L (137-145) mmol/L Carbon Dioxide 19 L (22-30) mmol/L Glucose 164 H (74-99) mg/dL POC Glucose (mg/dL) (70-110) mg/dL Calcium 6.8 L (8.4-10.2) mg/dL AST 50 H (14-36) U/L Total Protein 4.2 L (6.3-8.2) g/dL Albumin 1.8 L (3.5-5.0) g/dL TSH 32.200 H (0.465-4.680) mIU/L Microbiology - Last 24 Hours (Table) 11/29/22 05:44 Blood Culture - Preliminary Blood 11/29/22 02:14 Blood Culture - Preliminary Blood Assessment and Plan (1) Leukocytosis Current Visit: No Status: Acute Priority: High Code(s): D72.829 - ELEVATED WHITE BLOOD CELL COUNT, UNSPECIFIED SNOMED Code(s): 343858895 Plan: 1patient with significant leukocytosis in this patient presented to hospital with strokelike symptoms and has received tPA patient did not have any fever during this admission chest x-ray did not show any consolidation however procalcitonin was mildly elevated urine was negative no blood culture done patient abdominal soft on clinical examination and no evidence of any joint swelling or cellulitis 2-blood cultures currently pending patient did have a mildly elevated procalcitonin 0.37 3patient did have a persistent elevated white count despite being on a good antibiotic coverage with Zosyn cultures have been negative, we will add Diflucan and see clinical response and repeat CBC with a.m. lab Dictation was produced using [employer] dictation software. please excuse any grammatical, word or spelling errors.
[2022-12-02] MEDS ORDERED: FLUCONAZOLE 100 MG TAB PO ONE (16:00)
[2022-12-02 16:29] LABS: Glucose,Whole Blood 133 mg/dL (70-110)
--- NOTE | 2022-12-02 20:03 | P.PN ---
Subjective Progress Note Date: 12/02/22 Patient was seen for a follow-up. Patient denies any headache or dizziness. Feels her speech is much better. No new weakness, numbness. No new neurological symptoms. Objective - Vital Signs Vital signs: Vital Signs Temp 97.3 F L 12/02/22 16:32 Pulse 70 12/02/22 16:40 Resp 16 12/02/22 16:40 BP 102/61 12/02/22 16:32 Pulse Ox 100 12/02/22 16:32 FiO2 Intake & Output 12/02/22 12/02/22 12/03/22 06:59 18:59 06:59 Intake Total 370 130 118 Balance 370 130 118 Intake: IV 70 30 Sodium Chloride 0.9% 1, 70 30 000 ml @ 10 mls/hr IV . Q24H [facility] Rx#:[id number] Intake, IV Titration 100 100 Amount Piperacillin-Tazobactam 3 100 100 .375 gm In Sodium Chloride 0.9% 100 ml @ 25 mls/hr IVPB Q8HR [facility] Rx# :[id number] Oral 200 118 Other: Voiding Method Diaper Diaper Incontinent Incontinent # Voids 1 4 - Exam Patient's mental status is normal. Patient's speech is clear. She has some word hesitancy. No paraphasic errors noted. No dysarthria. Her repetition has much improved. Naming has much improved. She was able to name all 5/5 objects. She can follow directions very well. Intact comprehension. Cranial nerves are normal. Visual silverman are full. On muscle strength testing, patient has right pronation, no drift. The strength is normal. Sensory to touch is equal. No ataxia for [id number] testing. Patient has moderate peripheral edema. - Labs CBC & Chem 7: 12/02/22 07:31 12/02/22 07:31 Labs: Abnormal Lab Results - Last 24 Hours (Table) 12/02/22 12/02/22 12/02/22 Range/Units 05:51 07:31 07:31 WBC 20.3 H (3.8-10.6) k/uL RDW 15.7 H (11.5-15.5) % Neutrophils # (Manual) 16.00 H (1.3-7.7) k/uL Monocytes # (Manual) 1.62 H (0-1.0) k/uL Sodium 129 L (137-145) mmol/L Carbon Dioxide 19 L (22-30) mmol/L Glucose 164 H (74-99) mg/dL POC Glucose (mg/dL) 58 L (70-110) mg/dL Calcium 6.8 L (8.4-10.2) mg/dL AST 50 H (14-36) U/L Total Protein 4.2 L (6.3-8.2) g/dL Albumin 1.8 L (3.5-5.0) g/dL TSH (0.465-4.680) mIU/L 12/02/22 12/02/22 Range/Units 07:31 16:27 WBC (3.8-10.6) k/uL RDW (11.5-15.5) % Neutrophils # (Manual) (1.3-7.7) k/uL Monocytes # (Manual) (0-1.0) k/uL Sodium (137-145) mmol/L Carbon Dioxide (22-30) mmol/L Glucose (74-99) mg/dL POC Glucose (mg/dL) 133 H (70-110) mg/dL Calcium (8.4-10.2) mg/dL AST (14-36) U/L Total Protein (6.3-8.2) g/dL Albumin (3.5-5.0) g/dL TSH 32.200 H (0.465-4.680) mIU/L Microbiology - Last 24 Hours (Table) 11/29/22 05:44 Blood Culture - Preliminary Blood 11/29/22 02:14 Blood Culture - Preliminary Blood Assessment and Plan Assessment: * Acute ischemic stroke involving the left frontal, parietal and occipital lobes, manifesting with aphasia, right hemiparesis, patient is status post TPA. Her NIH stroke scale documented ER was 7, but now it is 2 (related to mi ld aphasia and right pronator drift). * Diabetes poorly controlled * Heart failure * Hypothyroidism * Hypertension * Hyperlipidemia * Peripheral edema * Recurrent pleural effusion * Possible systemic mastocytosis * X tobacco use Plan: * Patient has received TPA. Patient is stable * MRI of the brain without contrast revealed foci of acute/subacute ischemia within the left frontal lobe, left parietal lobe and left occipital lobe. Left parietal/frontal region of serpiginous low FLAIR signal with surrounding hyperintense FLAIR signal and susceptibility artifact suggest cortical laminar necrosis. I personally reviewed MRI, agree with the findings. * 2-D echo performed 10/12/2022 revealed left ventricle hypertrophy with preserved systolic function with EF 60-65%. Normal left atrial size. Large pleural effusion with echogenic material. Thickened pericardium, minimal to no effusion. * Limited 2-D echo with bubble study 11/30/2022 was negative for PFO. * CTA head and neck showed: No evidence of dissection of the cervical internal carotid arteries or vertebral arteries or any evidence of significant stenosis of the carotid bifurcations. No evidence of intracranial high-grade stenosis or intracranial aneurysm. Bilateral thoracotomy tubes with small bilateral pleural effusion. * Fasting a.m. lipid panel with cholesterol 88, LDL 43, HDL 27 and triglycerides 84. We will change Lipitor from 80 down to 10 mg daily. * Hemoglobin A1c 12.0 consistent with poorly controlled diabetes. Recommend optimize control of diabetes to target A1c < 7.0 * TSH 70.8, free T4 0.07. Internal medicine to address abnormal thyroid functions. Patient was taking levothyroxine 150 g. Her dose increased to 200 g. * Optimize control of blood pressure to normotensive levels. Avoid hypotension blood pressure less than 110/60 * 24-hour post-TPA CT head showed no acute process. No bleed. * Patient started on aspirin 325 mg. Based upon the results of MRI, patient is high risk for hemorrhagic conversion, therefore will not give DAPT. We will decrease aspirin to 81 mg daily. * Repeat CT head performed 11/30/2022 revealed redemonstrated subacute infarct lateral left frontoparietal junction with the vague areas of minimal petechial hemorrhage. No midline shift or new hemorrhage seen. I personally reviewed CT head agree with the findings. Similar mild ventriculomegaly probably due to central cerebral atrophy. Correlate to exclude a component of NPH. On my review, there is significant cortical atrophy, consistent with amount of ventricular dilation. * Due to persistent petechial hemorrhage, recommend holding aspirin for 7 days. Then resume aspirin 81 mg daily from 12/08/2022. Discussed with primary physician, agree with the plan. I also spoke to patient's daughter on the phone, and updated about this plan. * Telemetry monitoring rule out any arrhythmia * PT, OT, speech therapy. * Other medical management as per IM and other specialties. * DVT prophylaxis: SCDs. * Patient is otherwise stable neurologically for transfer to rehab facility. Dr. Lloyd Claire to resume neurology service from Saturday morning for any concerns.
[2022-12-02 20:23] LABS: Glucose,Whole Blood 212 mg/dL (70-110)
[2022-12-02] MEDS: ATORVASTATIN 10 MG TAB PO SCH (20:44)
[2022-12-02] MEDS: INSULIN DETEMIR (LEVEMIR) 100 UNIT/ML SYR SQ SCH (20:45)
[2022-12-03] MEDS: PIPERACILLIN-TAZOBACTAM 3.375 GM in SODIUM CHLORIDE 0.9% 100 ML IVPB SCH ×2 (00:07→08:19)
[2022-12-03] MEDS: SODIUM CHLORIDE 0.9% 1,000 ML IV SCH (00:08)
[2022-12-03] MEDS: INSULIN ASPART (NovoLOG) 100 UNIT/ML VIAL SQ SCH ×3 (06:11→16:51)
[2022-12-03 06:12] LABS: Glucose,Whole Blood 71 mg/dL (70-110)
[2022-12-03] MEDS: LEVOTHYROXINE 100 MCG TAB PO SCH (06:12)
[2022-12-03] MEDS: PANTOPRAZOLE 40 MG TABLET PO SCH (06:13)
[2022-12-03] MEDS: BUDESONIDE 0.5 MG/2 ML NEBU INHALATION SCH (08:11)
[2022-12-03] MEDS: IPRATROPIUM-ALBUTEROL 3 ML NEB INHALATION SCH ×3 (08:11→15:36)
--- NOTE | 2022-12-03 09:15 | P.PN ---
Subjective Progress Note Date: 12/03/22 Principal diagnosis: CVA Mrs Ping Villalpando is a 77 y/o right handed female who lives with her in a single story condo with 2 FIORD[address]. Prior to admission, she was ambulati ng with a 4ww, independent with ADLs. She was able to drive. She has good support form her , but he recently hurt his back helping her up after a fall. She has O2 at home, but cannot recall how many liters. She also has a wheelchair at home. Mrs Villalpando was brought into the hospital on 11/25/22 by ambulance yesterday at 7:38 PM for acute onset of stroke symptoms. Patient says that she suddenly could not talk and developed right-sided weakness. As per EMS flow sheet, when they arrived, patient was sitting upright in the chair. Patient's states that patient began to "act weird" about 45 minutes to an hour prior to EMS arrival. Patient was noted to have right facial droop right extremity flaccidity and aphasia. Patient was alert, unable to answer questions with GCS of 13. Patient not on any blood thinners. No trauma. Patient's blood glucose was 331. Blood pressure 101/46, pulse rate 84, respirations 16, saturation 97%. Vital signs arrival blood pressure 121/69, pulse rate [address] head revealed no acute process. Small vessel ischemic disease. EKG shows sinus rhythm. Chest x-ray showed bilateral thoracotomy tubes without evidence of pneumothorax. The case discussed with stroke neurologist, and patient received TPA. Patient had improvements of speech and right sided weakness after tPA. Neurology recommended an MRI Brain, which revealed foci of acute/subacute ischemia in the left frontal lobe, left parietal and left occipital lobe. Patient's A1c noted to be 12. She was started on aspirin and atorvastatin. Patient's EF 60-65%. Patient noted to have elevated white blood cell count, she is currently on Zosyn, blood cultures are pending. PM and R consulted for rehabilitation recommendations. Patient was seen by therapies, needing min assist for bathing and upper body dressing, max assist for lower body dressing, supervision for grooming, min assist for gait using to head walker for 25 feet. She was cleared by speech therapy for regular diet with thin liquids. Noted to have receptive and expressive aphasia. 11/29/22: Patient states she is feeling better, but still not herself. She still feels like she is slightly weak on her right side. She denies numbness, tingling, burning sensations in the arms or legs. She denies issues with swallowing. She is currently in oxygen via nasal cannula. She denies chest pain, abdominal pain. Had a bowel movement this morning, denies issues with urination. She is frustrated that she is having trouble expressing what she wants at times, or slow to respond. She has no current complaints of pain. Patient had some issues with elevated WBC, cultures done and abx started and completed. TSH found to be elevated, on 12/02 TSH 32, IM adjusted medications. Due to patient's high risk of hemorrhagic conversion, her ASA was decreased to 81 mg and then due to petechia it was held with plan to resume on 12/08/22. 12/03/22: Patient states she is overall feeling better than last week. She had some issues with gas pains yesterday but feeling better. She had a BM yesterday, denies issues with urination. She is still having some trouble with memory and speech. She is looking forward to coming to rehab. She admits she has not been sleeping well since the stoke, having trouble falling asleep. Would recommend starting with melatonin Objective - Vital Signs Vital signs: Vital Signs Temp 97.6 F 12/03/22 04:00 Pulse 77 12/03/22 08:22 Resp 16 12/03/22 08:22 BP 104/60 12/03/22 08:00 Pulse Ox 97 12/03/22 08:11 FiO2 Intake & Output 12/02/22 12/03/22 12/03/22 18:59 06:59 18:59 Intake Total 130 118 Output Total 2 Balance 130 116 Intake: IV 30 Sodium Chloride 0.9% 1, 30 000 ml @ 10 mls/hr IV . Q24H [facility] Rx#:[id number] Intake, IV Titration 100 Amount Piperacillin-Tazobactam 3 100 .375 gm In Sodium Chloride 0.9% 100 ml @ 25 mls/hr IVPB Q8HR [facility] Rx# :[id number] Oral 118 Output: Stool 2 Other: Voiding Method Diaper Diaper Incontinent Incontinent # Voids 4 1 # Bowel Movements 1 - Exam General: Well-developed thin elderly female sitting up in bed in no acute distress HEENT: NC/AT, external ears intact, hearing intact to conversational speech, neck supple Cardiovascular: property assessment monitor on, B/L calves are supple, nontender, no cords, 1+ peripheral edema, no cardiac distress Respiratory: Even and unlabored breathing on O2, 2 liters Abdomen: Soft, nontender, nondistended Genitourinary: No suprapubic tenderness Musculoskeletal: ROM WFL EXCEPT: Slightly decreased bilateral hip flexion right greater than left, very mild right hemiparesis MMT UE Sh Abd EE EF HG Right 4 4- 4 4+ Left 4+ 4- 4+ 4+ MMT LE HF KE DF EHL Right 4- 4 5 5 Left 4 4+ 5 5 Skin: Skin intact where visible to head, neck, and bilateral upper and lower extremities, PIV Neurological: Alert and Oriented x 3 , Delayed 3 word recall 2/3. Speech is clear and fluent. Slow processing at times, Expressive > receptive aphasia, cranial nerves grossly intact except slight right facial droop Coordination: Right finger to nose dysmetria, HTS intact Sensation: decreased sensation to light touch right lower extremity, otherwise intact Psychiatric: Mood calm, affect flat, cooperative - Labs CBC & Chem 7: 12/02/22 07:31 12/02/22 07:31 Labs: Abnormal Lab Results - Last 24 Hours (Table) 12/02/22 12/02/22 12/02/22 Range/Units 07:31 07:31 16:27 Neutrophils # (Manual) 16.00 H (1.3-7.7) k/uL Monocytes # (Manual) 1.62 H (0-1.0) k/uL POC Glucose (mg/dL) 133 H (70-110) mg/dL TSH 32.200 H (0.465-4.680) mIU/L 12/02/22 Range/Units 20:22 Neutrophils # (Manual) (1.3-7.7) k/uL Monocytes # (Manual) (0-1.0) k/uL POC Glucose (mg/dL) 212 H (70-110) mg/dL TSH (0.465-4.680) mIU/L Microbiology - Last 24 Hours (Table) 11/29/22 05:44 Blood Culture - Preliminary Blood 11/29/22 02:14 Blood Culture - Preliminary Blood Assessment and Plan Assessment: #acute/subacute ischemia in the left frontal lobe, left parietal and left o ccipital lobes status post TPA, dominant side -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 head performed 11/30/2022 revealed redemonstrated subacute infarct lateral left frontoparietal junction with the vague areas of minimal petechial hemorrhage. Due to persistent petechial hemorrhage, aspirin held for 7 days. Then resume aspirin 81 mg daily from 12/08/2022. # Expressive and receptive aphasia # Right hemiparesis # Poorly controlled diabetes mellitus, hemoglobin A1c 12 #Congestive heart failure #Peripheral edema #Recurrent pleural effusion with history of Pleurx cath and thoracotomy # Comorbidities: History of monoclonal B-cell lymphocytosis,Hyperlipidemia, Hypertension,Hypothyroidism-TSH 70.8, free T4 0.07, IM adjusted medications # Pain Management: Morphine 4 mg IV Q 3 hrs prn -11/29/22 no complaints of pain # leukocytosis -completed abx # History of tobacco abuse # Bowel/ Bladder -monitor for retention # Your medical dx and management Goals: Modified Independent mobility and ADLS both basic and advanced; increased functional mobility/strength; increased balance, safety, endurance. Improvement in medical issues through your care. Discharge recommendation: Recommending Inpatient rehab for this patient when medical work up has been completed. She will need new therapy notes, but hopeful she will be able to admit to [facility] in the next 24 hrs. Patient was seen and examined in coordination with Dr Roca
[2022-12-03 09:21] LABS: ALT 23 U/L (4-34); AST 30 U/L (14-36); African American GFR (CKD) >90 (>60 ml/min/1.73 sqM); Alkaline Phosphatase 74 U/L (38-126); Anion Gap 5 mmol/L; Blood Urea Nitrogen 13 mg/dL (7-17); Calcium 7.1 mg/dL (8.4-10.2); Carbon Dioxide 24 mmol/L (22-30); Chloride 105 mmol/L (98-107); Glucose 50 mg/dL (74-99); Non-African American GFR(CKD) 86 (>60 ml/min/1.73 sqM); Potassium 3.7 mmol/L (3.5-5.1); Sodium 134 mmol/L (137-145); Total Bilirubin 0.4 mg/dL (0.2-1.3); Total Protein 4.6 g/dL (6.3-8.2)
[2022-12-03 09:23] LABS: HCT 37.8 % (34.0-46.0); HGB 12.2 gm/dL (11.4-16.0); MCH 27.2 pg (25.0-35.0); MCHC 32.2 g/dL (31.0-37.0); MCV 84.7 fL (80.0-100.0); Mean Platelet Volume 12.3; Platelet Count 167 k/uL (150-450); RBC 4.46 m/uL (3.80-5.40); RDW 15.6 % (11.5-15.5); WBC 22.1 k/uL (3.8-10.6)
[2022-12-03] MEDS ORDERED: LINEZOLID 600 MG TAB PO SCH (11:30)
[2022-12-03 11:43] LABS: Glucose,Whole Blood 79 mg/dL (70-110)
[2022-12-03 13:39] VITALS: TEMP 97.2
[2022-12-03 14:22] LABS: Lymphocytes # (M) 5.08 k/uL (1.0-4.8); Monocytes # (M) 4.42 k/uL (0-1.0); Neutrophils % (M) 57 %; Nucleated Red Blood Cells 0 /100 WBC (0-0); Total Cells Counted 100
[2022-12-03 14:29] LABS: RBC Morphology Normal
[2022-12-03 15:37] VITALS: RESP 16
[2022-12-03 16:25] VITALS: BP 105/48; PULSE 89
[2022-12-03 16:46] LABS: Glucose,Whole Blood 126 mg/dL (70-110)
--- NOTE | 2022-12-03 17:42 | P.PN ---
Subjective Progress Note Date: 12/03/22 Principal diagnosis: Leukocytosis Patient is a 77-year-old female with past medical history significant for diabetes mellitus hypertension hyperlipidemia heart failure with patient did have a history of bilateral effusion recurrent requiring bilateral Pleurx catheter placement, patient presented to hospital with strokelike symptoms did receive tPA noticed to have elevated white count prompted this infectious disease consultation On today's evaluation that is 12/03/2022 patient denies any fever or any chills, the patient is breathing comfortably on 2 L nasal cannula oxygen, the patient denies having any chest pain shortness of breath or cough no abdominal pain or diarrhea. Patient white count is up to 22.1 today, creatinine is 0.63 blood culture has been negative Objective - Vital Signs Vital signs: Vital Signs Temp 97.6 F 12/03/22 04:00 Pulse 77 12/03/22 08:22 Resp 16 12/03/22 08:22 BP 104/60 12/03/22 08:00 Pulse Ox 97 12/03/22 08:11 FiO2 Intake & Output 12/02/22 12/03/22 12/03/22 18:59 06:59 18:59 Intake Total 130 118 180 Output Total 2 Balance 130 116 180 Intake: IV 30 Sodium Chloride 0.9% 1, 30 000 ml @ 10 mls/hr IV . Q24H [facility] Rx#:[id number] Intake, IV Titration 100 Amount Piperacillin-Tazobactam 3 100 .375 gm In Sodium Chloride 0.9% 100 ml @ 25 mls/hr IVPB Q8HR [facility] Rx# :[id number] Oral 118 180 Output: Stool 2 Other: Voiding Method Diaper Diaper Incontinent Incontinent # Voids 4 1 # Bowel Movements 1 - Exam GENERAL DESCRIPTION: An elderly female up in the chair in no distress RESPIRATORY SYSTEM: Unlabored breathing , decreased breath sounds at bases HEART: S1 S2 regular rate and rhythm , ABDOMEN: Soft , no tenderness EXTREMITIES: No edema feet - Labs CBC & Chem 7: 12/03/22 08:40 12/03/22 08:40 Labs: Abnormal Lab Results - Last 24 Hours (Table) 12/02/22 12/02/22 12/02/22 Range/Units 07:31 16:27 20:22 WBC (3.8-10.6) k/uL RDW (11.5-15.5) % Sodium (137-145) mmol/L Glucose (74-99) mg/dL POC Glucose (mg/dL) 133 H 212 H (70-110) mg/dL Calcium (8.4-10.2) mg/dL Total Protein (6.3-8.2) g/dL Albumin (3.5-5.0) g/dL TSH 32.200 H (0.465-4.680) mIU/L 12/03/22 12/03/22 Range/Units 08:40 08:40 WBC 22.1 H (3.8-10.6) k/uL RDW 15.6 H (11.5-15.5) % Sodium 134 L (137-145) mmol/L Glucose 50 L (74-99) mg/dL POC Glucose (mg/dL) (70-110) mg/dL Calcium 7.1 L (8.4-10.2) mg/dL Total Protein 4.6 L (6.3-8.2) g/dL Albumin 2.0 L (3.5-5.0) g/dL TSH (0.465-4.680) mIU/L Microbiology - Last 24 Hours (Table) 11/29/22 05:44 Blood Culture - Preliminary Blood 11/29/22 02:14 Blood Culture - Preliminary Blood Assessment and Plan (1) Leukocytosis Current Visit: No Status: Acute Priority: High Code(s): D72.829 - ELEVATED WHITE BLOOD CELL COUNT, UNSPECIFIED SNOMED Code(s): 262925187 Plan: 1patient with significant leukocytosis in this patient presented to hospital with strokelike symptoms and has received tPA patient did not have any fever du ring this admission chest x-ray did not show any consolidation however procalcitonin was mildly elevated urine was negative no blood culture done patient abdominal soft on clinical examination and no evidence of any joint swelling or cellulitis 2-blood cultures currently pending patient did have a mildly elevated procalcitonin 0.37 3patient did have a slight worsening of her white count was up to 22,000, we will discontinue Zosyn. Start the patient oral Zyvox and cyclical response repeat a CBC with a.m. lab Dictation was produced using [employer] software. please excuse any grammatical, word or spelling errors. Time with Patient: Less than 30
--- NOTE | 2022-12-05 15:27 | PN ---
PROGRESS NOTE SUBJECTIVE: A 77-year-old white female remains on DuoNeb and IV Zosyn per Dr. Palomo for unclear infection at this point, mastocytosis history, possibly elevated white count might be due to that. Cultures over the urine are negative. She is doing better with her breathing with Pulmicort and DuoNeb. She is on Lipitor for cholesterol. She is on her thyroid pills. She is on her trazodone. She is on baby aspirin. She had a parenchymal hemorrhage in the brain. Lovenox was stopped. She appears to be getting better. Dr. Palomo has seen her today as well as Neurology. Neurology did another CAT scan on 11/30, which re-demonstrated a subacute infarct in the left frontoparietal junction with vague areas of petechial hemorrhage. Possible normal-pressure hydrocephalus is what it said. Continues to do better. She follows up with Oncology for mastocytosis. She had a second opinion with [facility] recently. She is not compliant with some of her medications at home, which may have contributed to her stroke. OBJECTIVE: VITAL SIGNS: Her temperature is 97.5, pulse 79, respiratory rate 16 to 18, blood pressure 91/54. CARDIOVASCULAR: S1, S2. LUNGS: Transmitted breath sounds. HEMATOLOGY: Negative for Homans. PSYCHIATRIC: Fair mood and affect. continue current treatment. White count is 20.5. ASSESSMENT: Leukocytosis, prior stroke symptoms. Urine is negative. Procalcitonin is a little bit high, trending down. Waiting for Dr. Palomo's recommendations . She is to go to rehab on Saturday to [facility] for PT and OT. She appears to be doing better. She still has expressive aphasia, but she is able to swallow and she answers questions right away now whereas before she could not get any answers out, so she is doing much better. Prognosis is guarded. MMODL / IJN: [id number] /
--- NOTE | 2022-12-05 15:27 | PN ---
PROGRESS NOTE SUBJECTIVE: This 77-year-old white female remains on DuoNeb, Zosyn, Lipitor, Pulmicort, Levemir, Synthroid, Protonix, IV Zosyn per Dr. Palomo's recommendation. Urine culture is negative. OBJECTIVE: VITAL SIGNS: Blood cultures so far are negative for 24 hours, 99 to 98 on 2 L. Blood pressure 95/61, respiratory rate 16 to 18, pulse rate is 80, and temp 96.3. CARDIOVASCULAR: S1, S2. LUNGS: Scattered rhonchi and wheeze minimal. HEMATOLOGY: Negative for Homans, 2+ edema. NEUROLOGIC: Expressive aphasia appears to be slightly improved. Sugars in the mid 100s to 200s, once was up to 387 this morning, but has been lower than before. Remains on her aspirin, cholesterol medicines, Pulmicort, NovoLog, DuoNeb. Discussed with neurologist, going to hold her aspirin for 7 days and then restart it. Continue other current medicines. Antibiotics per Infectious Disease. Prognosis guarded. MMODL / IJN: [id number] /
--- NOTE | 2022-12-05 15:29 | DS ---
DISCHARGE SUMMARY HISTORY OF PRESENT ILLNESS: Intraparenchymal hemorrhage and CVA, severe COPD, pulmonary hypertension, mastocytosis, diabetes mellitus, profound hypothyroidism. She was admitted to the hospital with a stroke. Medicines were adapted to her. We held blood thinners after finding she had some parenchymal hemorrhage. We stopped her blood thinners and we stopped her aspirin for a week until she would may be go back on it in another week. Continue with her home medicines. She stabilized from a medical standpoint, but she will need generalized strengthening and weakness with CVA, expressive aphasia, generalized weakness, mastocytosis, COPD, pulmonary hypertension, profound hypothyroidism. Medicines will be possible infection, leukocytosis of unclear etiology. Dr. Palomo saw her, put her on Zyvox to go home for like 10-15 days. HOME MEDICINES: 1. Desyrel 50 at night p.r.n. for insomnia. 2. Levemir 16 units daily. 3. NovoLog a.c. h.s. 4. Pulmicort 0.5 b.i.d. 5. DuoNeb q.i.d. nebulizer. 6. Zyvox 600 b.i.d. for say 10 days. 7. Aspirin 81 mg daily. 8. DuoNeb updrafts q.i.d. 9. Lipitor 80 daily. 10.Synthroid 200 mcg daily. 11.Claritin 10 mg daily. 12.Zofran 4 mg p.r.n. for nausea. 13.Rabeprazole 40 mg daily. 14.Singulair 10 mg daily. 15.Calcium carbonate daily. 16.Iron sulfate 325 daily. 17.Pulmicort 0.5 b.i.d. daily. 18.She wears 2 L all the time 24 hours a day. CONDITION: Stable. PROGNOSIS: Guarded. FOLLOWUP: As an outpatient with Dr. Barron and in the rehab center. She is going to go to the [facility] for PT OT. Her white count is pretty much unchanged despite the antibiotics as she was noted to have some mastocytosis or infection. We found no source of infection. She had low blood sugars last year, so we have to monitor closely with her diet, oral intake and her severe protein-calorie malnutrition and hypoglycemia. On the last day in the hospital, her sugars have been running 71, 79, 126, 212. As mentioned, we will start aspirin in another week. No other blood thinners will be given. Continue with breathing treatments 4 times a day, 24 hours oxygen. GERD precautions, elevate bed. Prognosis guarded. Follow up in rehab. ALMA ROSA / LEANNA: [id number] /
--- NOTE | 2022-12-05 15:29 | PN ---
PROGRESS NOTE SUBJECTIVE: A 77-year-old female, status post mild parenchymal hemorrhage in the brain. She is doing much better with expressive aphasia. She is up in a chair, eating food appropriately, etc. She is slowly getting better. Her oxygen was 90% to 92% on 2 L. She wears oxygen at home, qualified through Medicare. OBJECTIVE: VITAL SIGNS: Temp 97.4, pulse 80s, respiratory rate 16 to 18. CARDIOVASCULAR: S1, S2. LUNGS: Decreased breath sounds x4. HEMATOLOGIC: 2+ edema. GI: Soft. Mild expressive aphasia, but mostly doing well with that. Her white count high at 20.3 with a neutrophil count of 16. Dr. Palomo is getting her Rocephin. No clear evidence of infection. Sodium 129, potassium 4.1. Sugars in the mid 100s. Calcium is low at 6.8, albumin is low at 1.8. We will have to get her nutrition improved. She has severe protein-calorie malnutrition. 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 She has COPD, pulmonary hypertension, heart disease. Continue current treatment. Get to rehab tomorrow. She has significant hypothyroidism. We increased her medicines for her thyroid and she is slowly getting better with that also. Prognosis guarded. Send to rehab in the morning. MMODL / IJN: [id number] /
== END 2022-12-03 18:03 | DRG 61 ==
LOC: EC 19:38 → 2SICU 20:34 → 3SCARD 11-30 09:46
PROVIDERS: ADMIT Family Medicine; ATTEND Family Medicine
DX: I63.9 Cerebral infarction, unspecified (principal); N17.0 Acute kidney failure with tubular necrosis; D47.09 Other mast cell neoplasms of uncertain behavior; G81.91 Hemiplegia, unspecified affecting right dominant side; K62.5 Hemorrhage of anus and rectum; E87.1 Hypo-osmolality and hyponatremia; E87.20 Acidosis, unspecified; J90 Pleural effusion, not elsewhere classified; R47.01 Aphasia; R47.02 Dysphasia; R23.3 Spontaneous ecchymoses; J44.9 Chronic obstructive pulmonary disease, unspecified; E03.9 Hypothyroidism, unspecified; I27.20 Pulmonary hypertension, unspecified; D69.6 Thrombocytopenia, unspecified; D72.822 Plasmacytosis; E78.5 Hyperlipidemia, unspecified; I95.9 Hypotension, unspecified; G47.00 Insomnia, unspecified; G93.89 Other specified disorders of brain; I11.0 Hypertensive heart disease with heart failure; I50.9 Heart failure, unspecified; R29.707 NIHSS score 7; E11.65 Type 2 diabetes mellitus with hyperglycemia; Z74.1 Need for assistance with personal care; T45.515A Adverse effect of anticoagulants, initial encounter; D72.829 Elevated white blood cell count, unspecified; Z85.72 Personal history of non-Hodgkin lymphomas; Z87.891 Personal history of nicotine dependence; Z86.16 Personal history of COVID-19; Z79.899 Other long term (current) drug therapy; Z79.890 Hormone replacement therapy; Z79.84 Long term (current) use of oral hypoglycemic drugs; Z79.4 Long term (current) use of insulin; Z99.3 Dependence on wheelchair; Z91.81 History of falling; Z99.81 Dependence on supplemental oxygen; Z91.148 Patient's other noncompliance with medication regimen for other reason
CPT/HCPCS: 36415; 37195; 70450; 70496; 70498; 70551; 71045; 80048; 80053; 80061; 81001; 82533; 82550; 83036; 83605; 83735; 84100; 84145; 84439; 84443; 84484; 85025; 85610; 85730; 86140; 87040; 87086; 93005; 93308; 94640; 94760; 96360; 99291

== ENCOUNTER 2023-01-31 21:15 | Inpatient (IN) | payer MEDICARE, OTHER ==
--- NOTE | 2023-01-31 21:57 | ED ---
General Adult HPI - General Chief complaint: Recheck/Abnormal Lab/Rx Stated complaint: Abnormal Labs Time Seen by Provider: 01/31/23 21:23 Source: EMS, RN notes reviewed Mode of arrival: EMS Limitations: altered mental status - History of Present Illness Initial comments: 77-year-old female presenting with abnormal labs. Patient has history of dementia, poor historian. Patient apparently had elevated potassium and elevated white blood cell count. Sent in from assisted. - Related Data Home Medications Medication Instructions Recorded Confirmed Ferrous Sulfate [Iron (65 MG 325 mg PO DAILY 09/10/22 11/25/22 Elemental)] Loratadine [Claritin] 10 mg PO DAILY 09/10/22 11/25/22 Montelukast [Singulair] 10 mg PO DAILY 09/10/22 11/25/22 Omeprazole 40 mg PO DAILY 09/10/22 11/25/22 Ondansetron [Zofran] 4 mg PO Q6H PRN 09/10/22 11/25/22 Calcium Carb-Vit D 500Mg-5Mcg 1 tab PO BID-W/MEALS 10/11/22 11/25/22 [Oscal 500+D 5 Mcg (200 Iu)] Previous Rx's Medication Instructions Recorded Ipratropium-Albuterol Nebulize 3 ml INHALATION RT-QID each 09/18/22 [Duoneb 0.5 mg-3 mg/3 ml Soln] Budesonide [Pulmicort] 0.5 mg INHALATION RT-BID 90 Days 10/19/22 #180 ml Aspirin 81 mg PO DAILY tab 11/29/22 Atorvastatin [Lipitor] 80 mg PO HS tab 11/29/22 Budesonide [Pulmicort] 0.5 mg INHALATION RT-BID ml 11/29/22 INSULIN ASPART (NovoLOG) [NovoLOG 0 unit SQ ACHS each 11/29/22 (formulary)] Insulin Detemir (Levemir) [Levemir] 16 unit SQ HS each 11/29/22 Ipratropium-Albuterol Nebulize 3 ml INHALATION RT-QID each 11/29/22 [Duoneb 0.5 mg-3 mg/3 ml Soln] Levothyroxine Sodium [Synthroid] 200 mcg PO DAILY@0700 tab 11/29/22 traZODone HCL [Desyrel] 50 mg PO HS PRN tab 11/29/22 Linezolid [Zyvox] 600 mg PO Q12HR tab 12/03/22 Allergies Allergy/AdvReac Type Severity Reaction Status Date / Time No Known Allergies Allergy Verified 01/31/23 21:34 Review of Systems ROS Statement: Those systems with pertinent positive or pertinent negative responses have been documented in the HPI. ROS Other: All systems not noted in ROS Statement are negative. Past Medical History Past Medical History: Heart Failure, Diabetes Mellitus, Hyperlipidemia, Hypertension, Thyroid Disorder Additional Past Medical History / Comment(s): left leg swells at end of day every day for about a year History of Any Multi-Drug Resistant Organisms: None Reported Past Surgical History: Cholecystectomy Additional Past Surgical History / Comment(s): cholecystectomy, cataract surgery Past Anesthesia/Blood Transfusion Reactions: No Reported Reaction Past Psychological History: No Psychological Hx Reported Smoking Status: Never smoker Past Alcohol Use History: Occasional Past Drug Use History: None Reported - Past Family History Father Family Medical History: Cancer, Prostate Disorder Additional Family Medical History / Comment(s): prostate CA Mother Additional Family Medical History / Comment(s): parkinsons General Exam Limitations: altered mental status General appearance: alert, in no apparent distress Head exam: Present: atraumatic, normocephalic Eye exam: Present: normal appearance, PERRL ENT exam: Present: normal exam Neck exam: Present: normal inspection. Absent: tenderness, meningismus Respiratory exam: Present: normal lung sounds bilaterally. Absent: respiratory distress Cardiovascular Exam: Present: regular rate, normal rhythm GI/Abdominal exam: Present: soft, other (Abdominal dressings clean dry and intact). Absent: distended Extremities exam: Present: pedal edema Neurological exam: Present: alert. Absent: oriented X3 Skin exam: Present: warm, dry, intact Course Vital Signs 01/31/23 01/31/23 01/31/23 21:20 22:00 22:20 Temperature 98.6 F Pulse Rate 102 H 108 H 105 H Respiratory 18 16 20 Rate Blood Pressure 111/60 111/50 111/50 O2 Sat by Pulse 97 Oximetry 01/31/23 22:30 Temperature Pulse Rate 104 H Respiratory 24 Rate Blood Pressure 111/50 O2 Sat by Pulse Oximetry Medical Decision Making - Medical Decision Making Was pt. sent in by a medical professional or institution (, PA, JUNIOR MECHANICAL ENGINEER, urgent care, hospital, or assisted...) When possible be specific @ -[Sent in from the assisted Did you speak to anyone other than the patient for history (EMS, parent, family, police, friend...)? What history was obtained from this source @ -[No] Did you review nursing and triage notes (agree or disagree)? Why? @ -[I reviewed and agree with nursing and triage notes] Were old charts reviewed (outside hosp., previous admission, EMS record, old EKG, old radiological studies, urgent care reports/EKG's, assisted records)? Report findings @ -[No old charts were reviewed] Differential Diagnosis (chest pain, altered mental status, abdominal pain women, abdominal pain men, vaginal bleeding, weakness, fever, dyspnea, syncope, headache, dizziness, GI bleed, back pain, seizure, CVA, palpatations, mental health, musculoskeletal)? @ Differential Fever: Pneumonia, viral URI, endocarditis, myocarditis, pericarditis, otitis, sinusitis, peritonsillar Abscess, retropharyngeal Abscess, epiglottitis, peritonitis, appendicitis, Miranda cystitis, diverticulitis, hepatitis, colitis, UTI, PID, TOA, pyelonephritis, prostatitis, epididymitis, meningitis, encephalitis, pulmonary embolism, CVA, thyroid storm, pancreatitis, adrenal crisis, cavernous sinus thrombosis, this is not meant to be an all-inclusive list. EKG interpreted by me (3pts min.). @ -[As above] X-rays interpreted by me (1pt min.). @Chest x-ray pending CT interpreted by me (1pt min.). @ -[None done] U/S interpreted by me (1pt. min.). @ -[None done] What testing was considered but not performed or refused? (CT, X-rays, U/S, labs)? Why? @ -[None] What meds were considered but not given or refused? Why? @ -[None] Did you discuss the management of the patient with other professionals (professionals i.e. , PA, JUNIOR MECHANICAL ENGINEER, lab, RT, psych nurse, social work professor, manager relationship, te acher, executive officer, shelter case manager)? Give summary @ -Case discussed with Dr. Barron who requests admission Was smoking cessation discussed for >3mins.? @ -[No] Was critical care preformed (if so, how long)? @ -[No] Were there social determinants of health that impacted care today? How? (Homelessness, low income, unemployed, alcoholism, drug addiction, transportation, low edu. Level, literacy, decrease access to med. care, senior care, rehab)? @ -[No] Was there de-escalation of care discussed even if they declined (Discuss DNR or withdrawal of care, Hospice)? DNR status @ -[No] What co-morbidities impacted this encounter? (DM, HTN, Smoking, COPD, CAD, Cancer, CVA, ARF, Chemo, Hep., AIDS, mental health diagnosis, sleep apnea, morbid obesity)? @ -Dementia, Was patient admitted / discharged? Hospital course, mention meds given and route, prescriptions, significant lab abnormalities, going to OR and other pertinent info. @69-year-old female sent in from assisted for elevated white count and elevated potassium. Potassium is 5.3. White blood cell count is elevated at 25 per chest had a chronic elevation in white blood cell count for some time. No fever. Stable blood pressure. Further infectious workup will be obtained included chest x-ray, urinalysis, blood cultures. She's given prophylactic antibiotics and admitted to Dr. Barron. Undiagnosed new problem with uncertain prognosis? @ -[No] Drug Therapy requiring intensive monitoring for toxicity (Heparin, Nitro, Insulin, Cardizem)? @ -[No] Were any procedures done? @ -[No] Diagnosis/symptom? @Leukocytosis Acute, or Chronic, or Acute on Chronic? @Acute on chronic Uncomplicated (without systemic symptoms) or Complicated (systemic symptoms)? @ -[default] Side effects of treatment? @ -[No] Exacerbation, Progression, or Severe Exacerbation? @ -[No] Poses a threat to life or bodily function? How? (Chest pain, [place], NC, pneumonia, PE, COPD, DKA, ARF, appy, cholecystitis, CVA, Diverticulitis, Homicidal, Suicidal, threat to staff... and all critical care pts) @ -Yes, sepsis - Lab Data Result diagrams: 01/31/23 22:03 01/31/23 22:03 Lab Results 01/31/23 01/31/23 Range/Units 22:03 22:03 WBC 25.8 H (3.8-10.6) k/uL RBC 3.37 L (3.80-5.40) m/uL Hgb 9.4 L (11.4-16.0) gm/dL Hct 28.0 L (34.0-46.0) % MCV 83.0 (80.0-100.0) fL MCH 27.9 (25.0-35.0) pg MCHC 33.6 (31.0-37.0) g/dL RDW 16.2 H (11.5-15.5) % Plt Count 128 L (150-450) k/uL MPV 12.9 Neutrophils % (Manual) 64 % Lymphocytes % (Manual) 17 % Monocytes % (Manual) 18 % Eosinophils % (Manual) 1 % Neutrophils # (Manual) 16.51 H (1.3-7.7) k/uL Lymphocytes # (Manual) 4.39 (1.0-4.8) k/uL Monocytes # (Manual) 4.64 H (0-1.0) k/uL Eosinophils # (Manual) 0.26 (0-0.7) k/uL Nucleated RBCs 0 (0-0) /100 WBC Manual Slide Review Performed Large Platelets Present Polychromasia Present Hypochromasia Slight Poikilocytosis (manual Present Anisocytosis Slight Sodium 132 L (137-145) mmol/L Potassium 5.3 H (3.5-5.1) mmol/L Chloride 106 (98-107) mmol/L Carbon Dioxide 20 L (22-30) mmol/L Anion Gap 6 mmol/L BUN 16 (7-17) mg/dL Creatinine 0.44 L (0.52-1.04) mg/dL Est GFR (CKD-EPI)AfAm >90 (>60 ml/min/1.73 sqM) Est GFR (CKD-EPI)NonAf >90 (>60 ml/min/1.73 sqM) Glucose 199 H (74-99) mg/dL Calcium 7.0 L (8.4-10.2) mg/dL Total Bilirubin 0.3 (0.2-1.3) mg/dL AST 17 (14-36) U/L ALT 13 (4-34) U/L Alkaline Phosphatase 81 (38-126) U/L Total Protein 4.3 L (6.3-8.2) g/dL Albumin 1.9 L (3.5-5.0) g/dL Disposition Clinical Impression: Leukocytosis, Generalized weakness Disposition: ADMITTED IP TO THIS [facility] Condition: Serious Is patient prescribed a controlled substance at d/c from ED?: No Referrals: Steve Barron MD [Primary Care Provider] - 1-2 days Time of Disposition: 23:26
[2023-01-31 22:13] LABS: Anisocytosis Slight; HGB 9.4 gm/dL (11.4-16.0); Hypochromasia Slight; MCH 27.9 pg (25.0-35.0); MCHC 33.6 g/dL (31.0-37.0); Mean Platelet Volume 12.9; Platelet Count 128 k/uL (150-450); RBC 3.37 m/uL (3.80-5.40); RDW 16.2 % (11.5-15.5); WBC 25.8 k/uL (3.8-10.6)
[2023-01-31 22:43] LABS: ALT 13 U/L (4-34); AST 17 U/L (14-36); African American GFR (CKD) >90 (>60 ml/min/1.73 sqM); Albumin 1.9 g/dL (3.5-5.0); Alkaline Phosphatase 81 U/L (38-126); Anion Gap 6 mmol/L; Blood Urea Nitrogen 16 mg/dL (7-17); Carbon Dioxide 20 mmol/L (22-30); Chloride 106 mmol/L (98-107); Glucose 199 mg/dL (74-99); Non-African American GFR(CKD) >90 (>60 ml/min/1.73 sqM); Potassium 5.3 mmol/L (3.5-5.1); Sodium 132 mmol/L (137-145); Total Bilirubin 0.3 mg/dL (0.2-1.3); Total Protein 4.3 g/dL (6.3-8.2)
[2023-01-31 23:05] LABS: Eosinophils # (M) 0.26 k/uL (0-0.7); Lymphocytes # (M) 4.39 k/uL (1.0-4.8); Monocytes # (M) 4.64 k/uL (0-1.0); Neutrophils # (M) 16.51 k/uL (1.3-7.7); Neutrophils % (M) 64 %; Nucleated Red Blood Cells 0 /100 WBC (0-0); Total Cells Counted 100
[2023-01-31 23:07] LABS: Large Platelets Present
[2023-01-31 23:08] LABS: Polychromasia Present
[2023-01-31 23:09] LABS: Poikilocytosis (M) Present
[2023-01-31] MEDS ORDERED: ACETAMINOPHEN TAB 325 MG TAB PO PRN (23:23)
[2023-01-31] MEDS ORDERED: NALOXONE 0.4 MG/ML 1 ML VIAL IV PRN (23:23)
--- NOTE | 2023-02-01 00:23 | XR ---
EXAM: XR Chest, 2 Views CLINICAL HISTORY: ITS.REASON XR Reason: Cytosis TECHNIQUE: Frontal and lateral views of the chest. COMPARISON: No relevant prior studies available. FINDINGS: Lungs: Unremarkable. No consolidation. Pleural space: Moderate RIGHT and small LEFT pleural effusions. No pneumothorax. Heart: Unremarkable. No cardiomegaly. Mediastinum: Unremarkable. Bones/joints: Unremarkable. Tubes, lines and devices: Bilateral chest tubes. IMPRESSION: 1. Moderate RIGHT and small LEFT pleural effusions. 2. Bilateral chest tubes. No pneumothorax.
[2023-02-01 00:51] LABS: Mucus,Urine Rare /hpf; RBC,Urine 1 /hpf (0-5); WBC,Urine 1 /hpf (0-5)
[2023-02-01 01:14] LABS: Appearance,Urine Clear (Clear); Color,Urine Yellow; Glucose,Urine (UA) 4+ (Negative); PH, Urine 5.5 (5.0-8.0); Protein,Urine 1+ (Negative); Specific Gravity,Urine >1.030 (1.001-1.035)
[2023-02-01 01:15] LABS: Bilirubin,Urine Negative (Negative); Blood,Urine Negative (Negative); Ketones,Urine Negative (Negative); Leukocyte Esterase,Urine Negative (Negative); Nitrite,Urine Negative (Negative); Urobilinogen,Urine <2.0 mg/dL (<2.0)
[2023-02-01 04:23] LABS: Glucose,Whole Blood 199 mg/dL (70-110)
[2023-02-01 07:17] LABS: Glucose,Whole Blood 151 mg/dL (70-110)
[2023-02-01] MEDS ORDERED: VANCOMYCIN IV PER PHARMACY 1 EACH MISC MISCELLANE PRN (10:11)
[2023-02-01] MEDS ORDERED: IPRATROPIUM-ALBUTEROL 3 ML NEB INHALATION PRN (10:15)
[2023-02-01] MEDS ORDERED: DEXTROSE 50% SYRINGE 50 ML IVP PRN ×2 (10:18)
[2023-02-01] MEDS ORDERED: VANCOMYCIN 1,000 MG in SODIUM CHLORIDE 0.9% 250 ML IVPB STA (10:22)
[2023-02-01] MEDS: SODIUM CHLORIDE 0.9% 1,000 ML IV SCH (11:04)
[2023-02-01] MEDS: CEFEPIME 1 GM in SODIUM CHLORIDE 0.9% 50 ML IVPB SCH ×2 (11:04→16:17)
[2023-02-01 11:05] LABS: African American GFR (CKD) >90 (>60 ml/min/1.73 sqM); Anion Gap 7 mmol/L; Blood Urea Nitrogen 15 mg/dL (7-17); Calcium 7.3 mg/dL (8.4-10.2); Carbon Dioxide 20 mmol/L (22-30); Chloride 107 mmol/L (98-107); Glucose 137 mg/dL (74-99); Non-African American GFR(CKD) >90 (>60 ml/min/1.73 sqM); Potassium 5.1 mmol/L (3.5-5.1); Sodium 134 mmol/L (137-145)
[2023-02-01] MEDS: IPRATROPIUM-ALBUTEROL 3 ML NEB INHALATION SCH ×3 (11:48→20:30)
[2023-02-01 12:09] LABS: HCT 34.5 % (34.0-46.0); Hypochromasia Marked; MCH 27.5 pg (25.0-35.0); MCHC 31.9 g/dL (31.0-37.0); MCV 86.2 fL (80.0-100.0); Mean Platelet Volume 12.1; RBC 4.01 m/uL (3.80-5.40); WBC 19.9 k/uL (3.8-10.6)
[2023-02-01 13:14] LABS: Glucose,Whole Blood 142 mg/dL (70-110)
[2023-02-01] MEDS: INSULIN ASPART (NovoLOG) 100 UNIT/ML VIAL SQ SCH ×3 (13:26→21:19)
[2023-02-01] MEDS ORDERED: ZINC OXIDE PASTE (Z-GUARD) 1 APPLIC APPLIC TOPICAL PRN (13:52)
[2023-02-01 14:18] LABS: Platelet Count 145 k/uL (150-450)
--- NOTE | 2023-02-01 16:08 | P.CNPUL ---
History of Present Illness Consult date: 02/01/23 Reason for consult: pleural effusion History of present illness: 77-year-old female patient, hospitalized because of generalized weakness, ongoin g shortness of breath, overall debility and weakness. Chest x-ray that was done time of admission showed bilateral pleural effusions and her last drainage from the Pleurx catheter was done 2 days ago. The [place] was elevated and she has chronic elevation a white cell count of 25 with a hemoglobin of 9.4. Sodium level is at 132, BUN is at 60 with a creatinine of 0.4. The patient remains on room air oxygen. She is afebrile and hemodynamically stable. She was started on broad-spectrum antibiotics. No clear indication for underlying pneumonia/sepsis. No aspiration. No nausea or vomiting. No diarrhea. Oral intake is quite diminished and she is very much debilitated. Her body mass ind ex is 23. She was recently hospitalized for a CVA and this was then November 2022 and the patient received TPA.past medical history significant for diabetes mellitus, hyperlipidemia, hypertension, hypothyroidism, monoclonal B-cell lymphocytosis, and recurrent pleural effusions. Review of Systems CONSTITUTIONAL: Significant medical debility and ongoing weight loss and diminished appetite EYES: Denies change in vision. EARS, NOSE, MOUTH, THROAT: Denies headaches, denies sore throat. CARDIOVASCULAR: Denies chest pain, palpitations or syncopal episodes. RESPIRATORY: Chronic dyspnea and bilateral pleural effusions GASTROINTESTINAL: Denies change in appetite, abdominal pain, nausea and vomiting, or diarrhea GENITOURINARY: Denies hematuria, denies infections. MUSKULOSKELETAL: Denies pain. Admits lower extremity swelling INTEGUMENTARY: Denies rash, denies eczema. NEUROLOGICAL: Denies recent memory loss, no recent seizure activity. Generalized motor weakness and she needs assistance for activities of day-to-day life PSYCHIATRIC: Denies anxiety, denies depression. HEMATOLOGIC/LYMPHATIC: Denies anemia, denies enlarged lymph node Past Medical History Past Medical History: Heart Failure, Diabetes Mellitus, Hyperlipidemia, Hypertension, Thyroid Disorder Additional Past Medical History / Comment(s): left leg swells at end of day every day for about a year History of Any Multi-Drug Resistant Organisms: None Reported Past Surgical History: Cholecystectomy Additional Past Surgical History / Comment(s): cholecystectomy, cataract surgery Past Anesthesia/Blood Transfusion Reactions: No Reported Reaction Past Psychological History: No Psychological Hx Reported Smoking Status: Former smoker Past Alcohol Use History: Occasional Past Drug Use History: None Reported - Past Family History Father Family Medical History: Cancer, Prostate Disorder Additional Family Medical History / Comment(s): prostate CA Mother Additional Family Medical History / Comment(s): parkinsons Medications and Allergies Home Medications Medication Instructions Recorded Confirmed Type Ferrous Sulfate [Iron (65 MG 325 mg PO DAILY 09/10/22 02/01/23 History Elemental)] Loratadine [Claritin] 10 mg PO DAILY 09/10/22 02/01/23 History Montelukast [Singulair] 10 mg PO HS 09/10/22 02/01/23 History Ondansetron [Zofran] 4 mg PO Q4H PRN 09/10/22 02/01/23 History Calcium Carb-Vit D 500Mg-5Mcg 1 tab PO HS 10/11/22 02/01/23 History [Oscal 500+D 5 Mcg (200 Iu)] Aspirin 81 mg PO DAILY tab 11/29/22 02/01/23 Rx Budesonide [Pulmicort] 0.5 mg INHALATION RT-BID ml 11/29/22 02/01/23 Rx Ipratropium-Albuterol Nebulize 3 ml INHALATION RT-QID each 11/29/22 02/01/23 Rx [Duoneb 0.5 mg-3 mg/3 ml Soln] Acetaminophen Tab [Tylenol] 650 mg PO Q6H PRN 02/01/23 02/01/23 History Atorvastatin Calcium [Lipitor] 80 mg PO HS 02/01/23 02/01/23 History Calcium Carbonate [Tums] 500 mg PO BID PRN 02/01/23 02/01/23 History Clotrimazole Cream [Lotrimin Cream] 1 applic TOPICAL BID 02/01/23 02/01/23 History Docusate [Colace] 100 mg PO BID 02/01/23 02/01/23 History Empagliflozin [Jardiance] 10 mg PO DAILY 02/01/23 02/01/23 History Escitalopram Oxalate [Lexapro] 10 mg PO DAILY 02/01/23 02/01/23 History Insulin Glargine [Lantus Vial] 15 unit SQ HS 02/01/23 02/01/23 History Insulin Lispro [humaLOG Kwikpen] See Protocol SQ ACHS 02/01/23 02/01/23 History Lactobacillus Acidophilus 1 tab PO BID 02/01/23 02/01/23 History [Acidophilus] Lactose-Reduced Food [Ensure Plus] 237 ml PO DAILY 02/01/23 02/01/23 History Levothyroxine Sodium [Synthroid] 125 mcg PO DAILY 02/01/23 02/01/23 History Magnesium Oxide [Mag-Ox] 400 mg PO BID 02/01/23 02/01/23 History Melatonin 3 mg PO HS PRN 02/01/23 02/01/23 History Omeprazole [PriLOSEC] 20 mg PO DAILY 02/01/23 02/01/23 History Pepto-Bismol Tablets 2 tab PO ACHS 02/01/23 02/01/23 History Sennosides [Senokot] 8.6 mg PO BID 02/01/23 02/01/23 History rOPINIRole HCL [Ropinirole HCl] 0.5 mg PO BID PRN 02/01/23 02/01/23 History Allergies Allergy/AdvReac Type Severity Reaction Status Date / Time No Known Allergies Allergy Verified 02/01/23 08:44 Physical Exam Vitals: Vital Signs Temp Pulse Pulse Resp BP BP Pulse Ox 02/01/23 15:32 96 02/01/23 15:21 88 02/01/23 12:54 98.6 F 95 18 107/59 94 L 02/01/23 12:00 92 02/01/23 11:48 92 02/01/23 07:13 97.7 F 88 18 109/65 97 02/01/23 04:24 97.5 F L 95 16 105/55 96 02/01/23 04:10 99 F 88 16 101/48 98 02/01/23 01:00 97 18 97/44 98 02/01/23 00:30 96 20 104/44 97 02/01/23 00:00 99 19 109/49 97 01/31/23 23:30 101 H 23 119/56 96 01/31/23 23:00 106 H 21 108/55 98 01/31/23 22:30 104 H 24 111/50 01/31/23 22:20 105 H 20 111/50 01/31/23 22:00 108 H 16 111/50 01/31/23 21:20 98.6 F 102 H 18 111/60 97 Intake and Output 02/01/23 02/01/23 02/01/23 06:59 14:59 22:59 Output Total 1250 Balance -1250 Output: Chest Tube Drainage 1250 Pleural Catheter Left 150 Pleural Catheter Right 1100 Other: Voiding Method Bedpan Bedpan Diaper Diaper # Voids 1 1 Weight 58.5 kg GENERAL EXAM: Alert, 77-year-old white female appearing stated age, comfortable in no apparent distress., The patient is on room air oxygen, debilitated, weak, body mass index of 23.6 HEAD: Normocephalic and atraumatic EYES: Normal reaction of pupils, equal size. NOSE: Clear with pink turbinates. THROAT: No erythema or exudates. NECK: No masses, no JVD. CHEST: No chest wall deformity. Bilateral Pleurx catheters LUNGS: Equal air entry with no crackles, wheeze, rhonchi or dullness. On room a ir. No conversational dyspnea or accessory muscle use.. The patient diminished breath on bilaterally and the patient is a Pleurx catheter bilaterally. CVS: S1 and S2 normal with no audible murmur, regular rhythm. No extra heart sounds ABDOMEN: No hepatosplenomegaly, active bowel sounds, no guarding or rigidity. SPINE: No scoliosis or deformity SKIN: No rashes CENTRAL NERVOUS SYSTEM: Patient is alert. Bilateral upper extremities 4 out of 5 strength, bilateral lower extremities 3 out of 5 strength, very poor historian, occasional confusion, no cranial nerve deficits EXTREMITIES: There is 3+ pitting bilateral lower extremity edema. No clubbing, or cyanosis. Peripheral pulses are intact. Results - Laboratory Findings CBC and BMP: 02/01/23 11:34 02/01/23 10:27 Abnormal lab findings: Abnormal Labs 01/31/23 01/31/23 02/01/23 22:03 22:03 00:00 WBC 25.8 H RBC 3.37 L Hgb 9.4 L Hct 28.0 L RDW 16.2 H Plt Count 128 L Neutrophils # (Manual) 16.51 H Monocytes # (Manual) 4.64 H Sodium 132 L Potassium 5.3 H Carbon Dioxide 20 L Creatinine 0.44 L Glucose 199 H POC Glucose (mg/dL) Calcium 7.0 L Total Protein 4.3 L Albumin 1.9 L Urine Protein 1+ H Urine Glucose (UA) 4+ H Urine Mucus Rare H 02/01/23 02/01/23 02/01/23 04:20 07:12 10:27 WBC RBC Hgb Hct RDW Plt Count Neutrophils # (Manual) Monocytes # (Manual) Sodium 134 L Potassium Carbon Dioxide 20 L Creatinine 0.41 L Glucose 137 H POC Glucose (mg/dL) 199 H 151 H Calcium 7.3 L Total Protein Albumin Urine Protein Urine Glucose (UA) Urine Mucus 02/01/23 02/01/23 11:34 13:03 WBC 19.9 H RBC Hgb 11.0 L Hct RDW 16.0 H Plt Count 145 L Neutrophils # (Manual) Monocytes # (Manual) Sodium Potassium Carbon Dioxide Creatinine Glucose POC Glucose (mg/dL) 142 H Calcium Total Protein Albumin Urine Protein Urine Glucose (UA) Urine Mucus - Diagnostic Findings Chest x-ray: image reviewed Assessment and Plan Plan: Chronic bilateral pleural effusion, will need drainage. The patient has bilateral Pleurx catheter insertion and the patient was underlying kp reich on outpatient basis. The fluid has been translated on previous evaluations. History of CVA post TPA administration. No focal neurological deficit. The patient generalized lower weakness.MRI of the brain showed areas of acute/subacute infarct involving the left frontal/parietal/occipital lobe. There was also nonspecific white matter changes. Neurology to interpret those findings.. The patient is currently on aspirin. No new onset focal neurological deficit and the patient is still struggling with some difficulties with her speech/depression. She remains on aspirin. Chronic leukocytosis Thrombocytopenia, stable at 145 History of monoclonal B cell lymphocytosis, being followed outpatient by oncology Hyperlipidemia Essential hypertension Diabetes mellitus type 2, insulin-dependent, currently on Levemir insulin at a dose of 10 units Hypothyroidism , currently on thyroid hormone replacement on Synthroid 125 g daily basis Plan Will undergo bilateral pleural fluid drainage through the Pleurx catheters Some limited oxygen if needed to maintain saturation above 90% Provide patient incentive spirometer Resume all medications IV fluids Overall generalized debility secondary to above-mentioned comorbidities We'll follow
--- NOTE | 2023-02-01 16:13 | P.HPIM ---
History of Present Illness H&P Date: 02/01/23 I assumed care for this patient around 10 AM on 02/01. 69-year-old female with PMH of B-cell lymphocytosis, diabetes mellitus, hypertension, dyslipidemia, hypothyroidism, bilateral pleural effusion presents to the ED from [facility] for confusion and weakness. Her is at bedside contributing to her history. 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 Has been unable to take care of the at home thus transferred to [facility] for rehab. reports deterioration of the patient over the past 3 weeks. She is participating less with PT and OT and wanting hospice. is agreeable for hospice (he is the POA) but both the daughters are not in agreement so he is conflicted. Used to enjoy reading and watching home improvement TV, not anymore. She reports a good appetite and no issues with sleeping. She reports a depressed mood. Denies suicidal of homicidal ideation. Denies auditory of visual hallucinations. She continues to have right sided residual weakness with confusion and difficulty finding words. She has bilateral Pleurx catheters for history of bilateral pleural effusion that requires regular draining. In the ED, she underwent extensive evaluation. Vital signs show tachycardia with HR in the 90s. CBC showed WBC count 25.8, Hg 9.4, Plt 128. CMP showed Na 132, K 5.3, bicab 20, Cr 0.44, glucose 199, Ca 7, albumin 1.9. UA 4+ ketones. CXR showed moderate right and small left pleural effusion with bilateral chest tubs and no PTX. Patient admitted for further workup and management of symptoms. General: non toxic, no distress, appears at stated age Derm: warm, dry Head: atraumatic, normocephalic, symmetric Eyes: EOMI, no lid lag, anicteric sclera Mouth: no lip lesion, mucus membranes moist Cardiovascular: S1S2 tachycardic, no murmur Lungs: Decreased breath sounds bilateral, no rhonchi, no rales , no accessory muscle use, bilateral Pleurx intact Abdominal: soft, nontender to palpation, no guarding, no appreciable organomegaly Ext: no gross muscle atrophy, no edema, no contractures Neuro: CN II-XI grossly intact, chronic right-sided weakness Psych: Alert and oriented x 2, flat affect Severe depression SIRS unknown etiology Chronic bilateral pleural effusion Hyperkalemia Diabetes mellitus with hyperglycemia Normocytic anemia with Thrombocytopenia Hyponatremia Based on my assessment of this patient, this patient meets a high complexity level of care. Patient has a CVA with severe exacerbation or progression of disease which poses a threat to life or bodily function. She meets sepsis criteria with WBC count and tachycardia. No obvious source of infection as of now but with bilateral pleural effusions and Pleurx catheters. Severe depression: Common post CVA. Patient has decision making capacity. She is wanting hospice, is agreeable but daughters are reluctant. At this time, she is not at imminent risk of . They are both agreeable for medical treatment at this time. If she deteriorates during this hospitalization, we will re-address hospice at that time. I do agree she woud be a good candidate for palliative care and hospice at discharge. We will start her on Zoloft 50 mg PO QD in the meantime. SIRS unknown etiology: Leukocytosis and tachycardia. Leukocytosis appears chronic. Obtain Bcx and Sputum Cx. Obtain procalcitonin. Start Vancomycin and Cefepime. Telemetry monitoring. Consult ID. Chronic bilateral pleural effusion: Pulmonology consulted. Possible thoracentesis for culture. Hyperkalemia: Mild. Repeat BMP. Diabetes mellitus with hyperglycemia. ISS. Accuchecks ACHS. Hypoglycemic precautions. Normocytic anemia with Thrombocytopenia: Hg 9.4. Plt 128. No signs of active bleeding. Continue to monitor. Transfuse if Hg < 7 or Plt < 10. Hyponatremia: Likely due to dehydration. Start NS at 75 cc/hr. Patient is DNR/DNI. is the decision maker. Lovenox for DVT prophylaxis. I have reviewed the following travel service consultant notes: I have reviewed the results of the following tests: As above. I have ordered the following tests: As above. I have discussed the care of this patient with the following independent historian: Discussed with and RN. I have independently interpreted the following test below: I have discussed the management of this patient with the following physician: Past Medical History Past Medical History: Heart Failure, Diabetes Mellitus, Hyperlipidemia, Hypertension, Thyroid Disorder Additional Past Medical History / Comment(s): left leg swells at end of day every day for about a year History of Any Multi-Drug Resistant Organisms: None Reported Past Surgical History: Cholecystectomy Additional Past Surgical History / Comment(s): cholecystectomy, cataract surgery Past Anesthesia/Blood Transfusion Reactions: No Reported Reaction Past Psychological History: No Psychological Hx Reported Smoking Status: Former smoker Past Alcohol Use History: Occasional Past Drug Use History: None Reported - Past Family History Father Family Medical History: Cancer, Prostate Disorder Additional Family Medical History / Comment(s): prostate CA Mother Additional Family Medical History / Comment(s): parkinsons Medications and Allergies Home Medications Medication Instructions Recorded Confirmed Type Ferrous Sulfate [Iron (65 MG 325 mg PO DAILY 09/10/22 02/01/23 History Elemental)] Loratadine [Claritin] 10 mg PO DAILY 09/10/22 02/01/23 History Montelukast [Singulair] 10 mg PO HS 09/10/22 02/01/23 History Ondansetron [Zofran] 4 mg PO Q4H PRN 09/10/22 02/01/23 History Calcium Carb-Vit D 500Mg-5Mcg 1 tab PO HS 10/11/22 02/01/23 History [Oscal 500+D 5 Mcg (200 Iu)] Aspirin 81 mg PO DAILY tab 11/29/22 02/01/23 Rx Budesonide [Pulmicort] 0.5 mg INHALATION RT-BID ml 11/29/22 02/01/23 Rx Ipratropium-Albuterol Nebulize 3 ml INHALATION RT-QID each 11/29/22 02/01/23 Rx [Duoneb 0.5 mg-3 mg/3 ml Soln] Acetaminophen Tab [Tylenol] 650 mg PO Q6H PRN 02/01/23 02/01/23 History Atorvastatin Calcium [Lipitor] 80 mg PO HS 02/01/23 02/01/23 History Calcium Carbonate [Tums] 500 mg PO BID PRN 02/01/23 02/01/23 History Clotrimazole Cream [Lotrimin Cream] 1 applic TOPICAL BID 02/01/23 02/01/23 History Docusate [Colace] 100 mg PO BID 02/01/23 02/01/23 History Empagliflozin [Jardiance] 10 mg PO DAILY 02/01/23 02/01/23 History Escitalopram Oxalate [Lexapro] 10 mg PO DAILY 02/01/23 02/01/23 History Insulin Glargine [Lantus Vial] 15 unit SQ HS 02/01/23 02/01/23 History Insulin Lispro [humaLOG Kwikpen] See Protocol SQ ACHS 02/01/23 02/01/23 History Lactobacillus Acidophilus 1 tab PO BID 02/01/23 02/01/23 History [Acidophilus] Lactose-Reduced Food [Ensure Plus] 237 ml PO DAILY 02/01/23 02/01/23 History Levothyroxine Sodium [Synthroid] 125 mcg PO DAILY 02/01/23 02/01/23 History Magnesium Oxide [Mag-Ox] 400 mg PO BID 02/01/23 02/01/23 History Melatonin 3 mg PO HS PRN 02/01/23 02/01/23 History Omeprazole [PriLOSEC] 20 mg PO DAILY 02/01/23 02/01/23 History Pepto-Bismol Tablets 2 tab PO ACHS 02/01/23 02/01/23 History Sennosides [Senokot] 8.6 mg PO BID 02/01/23 02/01/23 History rOPINIRole HCL [Ropinirole HCl] 0.5 mg PO BID PRN 02/01/23 02/01/23 History Allergies Allergy/AdvReac Type Severity Reaction Status Date / Time No Known Allergies Allergy Verified 02/01/23 08:44 Physical Exam Vitals: Vital Signs Temp Pulse Pulse Resp BP BP Pulse Ox 02/01/23 15:32 96 02/01/23 15:21 88 02/01/23 12:54 98.6 F 95 18 107/59 94 L 02/01/23 12:00 92 02/01/23 11:48 92 02/01/23 07:13 97.7 F 88 18 109/65 97 02/01/23 04:24 97.5 F L 95 16 105/55 96 02/01/23 04:10 99 F 88 16 101/48 98 02/01/23 01:00 97 18 97/44 98 02/01/23 00:30 96 20 104/44 97 02/01/23 00:00 99 19 109/49 97 01/31/23 23:30 101 H 23 119/56 96 01/31/23 23:00 106 H 21 108/55 98 01/31/23 22:30 104 H 24 111/50 01/31/23 22:20 105 H 20 111/50 01/31/23 22:00 108 H 16 111/50 01/31/23 21:20 98.6 F 102 H 18 111/60 97 Intake and Output 02/01/23 02/01/23 02/01/23 06:59 14:59 22:59 Output Total 1250 Balance -1250 Output: Chest Tube Drainage 1250 Pleural Catheter Left 150 Pleural Catheter Right 1100 Other: Voiding Method Bedpan Bedpan Diaper Diaper # Voids 1 1 Weight 58.5 kg Results CBC & Chem 7: 02/01/23 11:34 02/01/23 10:27 Labs: Abnormal Lab Results - Last 24 Hours (Table) 01/31/23 01/31/23 02/01/23 Range/Units 22:03 22:03 00:00 WBC 25.8 H (3.8-10.6) k/uL RBC 3.37 L (3.80-5.40) m/uL Hgb 9.4 L (11.4-16.0) gm/dL Hct 28.0 L (34.0-46.0) % RDW 16.2 H (11.5-15.5) % Plt Count 128 L (150-450) k/uL Neutrophils # (Manual) 16.51 H (1.3-7.7) k/uL Monocytes # (Manual) 4.64 H (0-1.0) k/uL Sodium 132 L (137-145) mmol/L Potassium 5.3 H (3.5-5.1) mmol/L Carbon Dioxide 20 L (22-30) mmol/L Creatinine 0.44 L (0.52-1.04) mg/dL Glucose 199 H (74-99) mg/dL POC Glucose (mg/dL) (70-110) mg/dL Calcium 7.0 L (8.4-10.2) mg/dL Total Protein 4.3 L (6.3-8.2) g/dL Albumin 1.9 L (3.5-5.0) g/dL Urine Protein 1+ H (Negative) Urine Glucose (UA) 4+ H (Negative) Urine Mucus Rare H (None) /hpf 02/01/23 02/01/23 02/01/23 Range/Units 04:20 07:12 10:27 WBC (3.8-10.6) k/uL RBC (3.80-5.40) m/uL Hgb (11.4-16.0) gm/dL Hct (34.0-46.0) % RDW (11.5-15.5) % Plt Count (150-450) k/uL Neutrophils # (Manual) (1.3-7.7) k/uL Monocytes # (Manual) (0-1.0) k/uL Sodium 134 L (137-145) mmol/L Potassium (3.5-5.1) mmol/L Carbon Dioxide 20 L (22-30) mmol/L Creatinine 0.41 L (0.52-1.04) mg/dL Glucose 137 H (74-99) mg/dL POC Glucose (mg/dL) 199 H 151 H (70-110) mg/dL Calcium 7.3 L (8.4-10.2) mg/dL Total Protein (6.3-8.2) g/dL Albumin (3.5-5.0) g/dL Urine Protein (Negative) Urine Glucose (UA) (Negative) Urine Mucus (None) /hpf 02/01/23 02/01/23 Range/Units 11:34 13:03 WBC 19.9 H (3.8-10.6) k/uL RBC (3.80-5.40) m/uL Hgb 11.0 L (11.4-16.0) gm/dL Hct (34.0-46.0) % RDW 16.0 H (11.5-15.5) % Plt Count 145 L (150-450) k/uL Neutrophils # (Manual) (1.3-7.7) k/uL Monocytes # (Manual) (0-1.0) k/uL Sodium (137-145) mmol/L Potassium (3.5-5.1) mmol/L Carbon Dioxide (22-30) mmol/L Creatinine (0.52-1.04) mg/dL Glucose (74-99) mg/dL POC Glucose (mg/dL) 142 H (70-110) mg/dL Calcium (8.4-10.2) mg/dL Total Protein (6.3-8.2) g/dL Albumin (3.5-5.0) g/dL Urine Protein (Negative) Urine Glucose (UA) (Negative) Urine Mucus (None) /hpf Thrombosis Risk Factor Assmnt - Choose All That Apply Each Factor Represents 1 point: Swollen legs (current) Each Risk Factor Represents 3 Points: Age 75 years or older Thrombosis Risk Factor Assessment Total Risk Factor Score: 4 Thrombosis Risk Factor Assessment Level: Moderate Risk
[2023-02-01] MEDS: SERTRALINE 50 MG TAB PO SCH (16:17)
[2023-02-01 17:53] LABS: Glucose,Whole Blood 246 mg/dL (70-110)
[2023-02-01 20:16] LABS: Glucose,Whole Blood 297 mg/dL (70-110)
[2023-02-01] MEDS: BUDESONIDE 0.5 MG/2 ML NEBU INHALATION SCH (20:30)
[2023-02-01] MEDS: MONTELUKAST 10 MG TAB PO SCH (21:19)
[2023-02-01] MEDS: ATORVASTATIN 80 MG TAB PO SCH (21:19)
--- NOTE | 2023-02-01 22:30 | P.CONS ---
History of Present Illness - Reason for Consult Consult date: 02/01/23 - History of Present Illness Patient is a 77-year-old female with a past medical history significant for diabetes mellitus hypertension hyperlipidemia patient did have a history of bilateral effusion and did have bilateral Pleurx catheter patient mention she drained her catheter every 2 days now presented to hospital with increasing shortness of breath getting worse over the last few days patient denies having any chest pain or significant cough however the patient complaining of some cloudy fluid from her Pleurx catheter along with weakness with the symptoms the patient has been evaluated on presentation to the hospital. Did have low-grade fever of 99 degrees on my patient was not hypoxic or need for supplemental oxygen patient did have white count 25.8 with a left shift creatinine 0.44 liver exams are normal urine is negative COVID testing was negative patient did have a chest x-ray that was reported moderate right and small left effusion bilateral chest tube no pneumothorax patient was started on cefepime and vancomycin infectious he was consulted for further management of antibiotic therapy Past Medical History Past Medical History: Heart Failure, Diabetes Mellitus, Hyperlipidemia, Hypertension, Thyroid Disorder Additional Past Medical History / Comment(s): left leg swells at end of day every day for about a year History of Any Multi-Drug Resistant Organisms: None Reported Past Surgical History: Cholecystectomy Additional Past Surgical History / Comment(s): cholecystectomy, cataract surgery Past Anesthesia/Blood Transfusion Reactions: No Reported Reaction Past Psychological History: No Psychological Hx Reported Smoking Status: Former smoker Past Alcohol Use History: Occasional Past Drug Use History: None Reported - Past Family History Father Family Medical History: Cancer, Prostate Disorder Additional Family Medical History / Comment(s): prostate CA Mother Additional Family Medical History / Comment(s): parkinsons Medications and Allergies Home Medications Medication Instructions Recorded Confirmed Type Ferrous Sulfate [Iron (65 MG 325 mg PO DAILY 09/10/22 02/01/23 History Elemental)] Loratadine [Claritin] 10 mg PO DAILY 09/10/22 02/01/23 History Montelukast [Singulair] 10 mg PO HS 09/10/22 02/01/23 History Ondansetron [Zofran] 4 mg PO Q4H PRN 09/10/22 02/01/23 History Calcium Carb-Vit D 500Mg-5Mcg 1 tab PO HS 10/11/22 02/01/23 History [Oscal 500+D 5 Mcg (200 Iu)] Aspirin 81 mg PO DAILY tab 11/29/22 02/01/23 Rx Budesonide [Pulmicort] 0.5 mg INHALATION RT-BID ml 11/29/22 02/01/23 Rx Ipratropium-Albuterol Nebulize 3 ml INHALATION RT-QID each 11/29/22 02/01/23 Rx [Duoneb 0.5 mg-3 mg/3 ml Soln] Acetaminophen Tab [Tylenol] 650 mg PO Q6H PRN 02/01/23 02/01/23 History Atorvastatin Calcium [Lipitor] 80 mg PO HS 02/01/23 02/01/23 History Calcium Carbonate [Tums] 500 mg PO BID PRN 02/01/23 02/01/23 History Clotrimazole Cream [Lotrimin Cream] 1 applic TOPICAL BID 02/01/23 02/01/23 History Docusate [Colace] 100 mg PO BID 02/01/23 02/01/23 History Empagliflozin [Jardiance] 10 mg PO DAILY 02/01/23 02/01/23 History Escitalopram Oxalate [Lexapro] 10 mg PO DAILY 02/01/23 02/01/23 History Insulin Glargine [Lantus Vial] 15 unit SQ HS 02/01/23 02/01/23 History Insulin Lispro [humaLOG Kwikpen] See Protocol SQ ACHS 02/01/23 02/01/23 History Lactobacillus Acidophilus 1 tab PO BID 02/01/23 02/01/23 History [Acidophilus] Lactose-Reduced Food [Ensure Plus] 237 ml PO DAILY 02/01/23 02/01/23 History Levothyroxine Sodium [Synthroid] 125 mcg PO DAILY 02/01/23 02/01/23 History Magnesium Oxide [Mag-Ox] 400 mg PO BID 02/01/23 02/01/23 History Melatonin 3 mg PO HS PRN 02/01/23 02/01/23 History Omeprazole [PriLOSEC] 20 mg PO DAILY 02/01/23 02/01/23 History Pepto-Bismol Tablets 2 tab PO ACHS 02/01/23 02/01/23 History Sennosides [Senokot] 8.6 mg PO BID 02/01/23 02/01/23 History rOPINIRole HCL [Ropinirole HCl] 0.5 mg PO BID PRN 02/01/23 02/01/23 History Allergies Allergy/AdvReac Type Severity Reaction Status Date / Time No Known Allergies Allergy Verified 02/01/23 08:44 Physical Exam Vitals: Vital Signs Temp Pulse Pulse Resp BP BP Pulse Ox 02/01/23 12:00 92 02/01/23 11:48 92 02/01/23 07:13 97.7 F 88 18 109/65 97 02/01/23 04:24 97.5 F L 95 16 105/55 96 02/01/23 04:10 99 F 88 16 101/48 98 02/01/23 01:00 97 18 97/44 98 02/01/23 00:30 96 20 104/44 97 02/01/23 00:00 99 19 109/49 97 01/31/23 23:30 101 H 23 119/56 96 01/31/23 23:00 106 H 21 108/55 98 01/31/23 22:30 104 H 24 111/50 01/31/23 22:20 105 H 20 111/50 01/31/23 22:00 108 H 16 111/50 01/31/23 21:20 98.6 F 102 H 18 111/60 97 Intake and Output 01/31/23 02/01/23 02/01/23 22:59 06:59 14:59 Other: Voiding Method Bedpan Bedpan Diaper Diaper # Voids 1 Weight 61.235 kg 58.5 kg Results CBC & Chem 7: 02/01/23 11:34 02/01/23 10:27 Labs: Abnormal Lab Results - Last 24 Hours (Table) 01/31/23 01/31/23 02/01/23 Range/Units 22:03 22:03 00:00 WBC 25.8 H (3.8-10.6) k/uL RBC 3.37 L (3.80-5.40) m/uL Hgb 9.4 L (11.4-16.0) gm/dL Hct 28.0 L (34.0-46.0) % RDW 16.2 H (11.5-15.5) % Plt Count 128 L (150-450) k/uL Neutrophils # (Manual) 16.51 H (1.3-7.7) k/uL Monocytes # (Manual) 4.64 H (0-1.0) k/uL Sodium 132 L (137-145) mmol/L Potassium 5.3 H (3.5-5.1) mmol/L Carbon Dioxide 20 L (22-30) mmol/L Creatinine 0.44 L (0.52-1.04) mg/dL Glucose 199 H (74-99) mg/dL POC Glucose (mg/dL) (70-110) mg/dL Calcium 7.0 L (8.4-10.2) mg/dL Total Protein 4.3 L (6.3-8.2) g/dL Albumin 1.9 L (3.5-5.0) g/dL Urine Protein 1+ H (Negative) Urine Glucose (UA) 4+ H (Negative) Urine Mucus Rare H (None) /hpf 02/01/23 02/01/23 02/01/23 Range/Units 04:20 07:12 10:27 WBC (3.8-10.6) k/uL RBC (3.80-5.40) m/uL Hgb (11.4-16.0) gm/dL Hct (34.0-46.0) % RDW (11.5-15.5) % Plt Count (150-450) k/uL Neutrophils # (Manual) (1.3-7.7) k/uL Monocytes # (Manual) (0-1.0) k/uL Sodium 134 L (137-145) mmol/L Potassium (3.5-5.1) mmol/L Carbon Dioxide 20 L (22-30) mmol/L Creatinine 0.41 L (0.52-1.04) mg/dL Glucose 137 H (74-99) mg/dL POC Glucose (mg/dL) 199 H 151 H (70-110) mg/dL Calcium 7.3 L (8.4-10.2) mg/dL Total Protein (6.3-8.2) g/dL Albumin (3.5-5.0) g/dL Urine Protein (Negative) Urine Glucose (UA) (Negative) Urine Mucus (None) /hpf Assessment and Plan Plan: 1patient with a leukocytosis at this patient who did have a history of recurrent effusion requiring Pleurx catheter placement and was complaining of shortness of breath and increasing cloudiness to the right Pleurx catheter fluid output likely the source of this elevated white count and will need to call for the resistant gram-positive as well as gram-negative pathogen 2-pleural fluid should be sent for Gram stain cell count and culture 3-continue with the vancomycin adjust the dose of cefepime to 2 g every 8 hours We will follow on clinical condition and cultures to further adjust medication if needed Thank you for this consultation we will follow the patient along with you Dictation was produced using [employer] dictation software. please excuse any grammatical, word or spelling errors. Time with Patient: Greater than 30
[2023-02-01] MEDS: CEFEPIME 2 GM in SODIUM CHLORIDE 0.9% 100 ML IVPB SCH (23:45)
[2023-02-01] MEDS: VANCOMYCIN 1,000 MG in SODIUM CHLORIDE 0.9% 250 ML IVPB SCH (23:47)
[2023-02-02] MEDS ORDERED: CEFEPIME 2 GM in SODIUM CHLORIDE 0.9% 50 ML IVPB SCH ×2
[2023-02-02] MEDS: SODIUM CHLORIDE 0.9% 1,000 ML IV SCH ×2 (03:56→16:27)
[2023-02-02] MEDS: LEVOTHYROXINE 125 MCG TAB PO SCH (06:31)
[2023-02-02] MEDS: PANTOPRAZOLE 40 MG TABLET PO SCH (06:31)
[2023-02-02 07:16] LABS: Glucose,Whole Blood 157 mg/dL (70-110)
[2023-02-02] MEDS: IPRATROPIUM-ALBUTEROL 3 ML NEB INHALATION SCH ×4 (07:28→20:31)
[2023-02-02] MEDS: BUDESONIDE 0.5 MG/2 ML NEBU INHALATION SCH ×2 (07:28→20:31)
[2023-02-02 07:29] LABS: African American GFR (CKD) >90 (>60 ml/min/1.73 sqM); Non-African American GFR(CKD) >90 (>60 ml/min/1.73 sqM)
[2023-02-02] MEDS: LORATADINE 10 MG TAB PO SCH (08:43)
[2023-02-02] MEDS: INSULIN ASPART (NovoLOG) 100 UNIT/ML VIAL SQ SCH ×4 (08:43→21:25)
[2023-02-02] MEDS: SERTRALINE 50 MG TAB PO SCH (08:43)
[2023-02-02] MEDS: CEFEPIME 2 GM in SODIUM CHLORIDE 0.9% 100 ML IVPB SCH ×2 (08:43→16:27)
[2023-02-02] MEDS: ASPIRIN 81 MG PO SCH (08:43)
[2023-02-02] MEDS: ENOXAPARIN 40 MG/0.4 ML SYRINGE SQ SCH (08:43)
[2023-02-02 09:39] LABS: Anisocytosis Slight; HCT 28.3 % (34.0-46.0); Hypochromasia Moderate; MCH 26.6 pg (25.0-35.0); MCHC 31.4 g/dL (31.0-37.0); MCV 84.7 fL (80.0-100.0); Mean Platelet Volume 13.8; Platelet Count 154 k/uL (150-450); RBC 3.34 m/uL (3.80-5.40); WBC 23.1 k/uL (3.8-10.6)
[2023-02-02 09:41] LABS: HGB 8.9 gm/dL (11.4-16.0)
[2023-02-02 09:42] LABS: Anion Gap 8 mmol/L; Blood Urea Nitrogen 15 mg/dL (7-17); Calcium 7.4 mg/dL (8.4-10.2); Carbon Dioxide 16 mmol/L (22-30); Chloride 108 mmol/L (98-107); Glucose 145 mg/dL (74-99); Potassium 4.7 mmol/L (3.5-5.1); Sodium 132 mmol/L (137-145)
--- NOTE | 2023-02-02 10:25 | P.PN ---
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 Steve Barron reviewed data revealed that patient is a 77-year-old male hospitalized due to progressive weakness and shortness of breath due to rise in pleural effusion, patient has bilateral Pleurx catheter which was inserted 3 days ago pulmonary is seeing plan is to remove the fluid, patient remains on b road-spectrum antibiotics patient is weak and debilitated, with no BMI of 23 on the patient is status post TPA for recent CVA extensive in nature likely in November 2022 other active medical problems include diabetes dyslipidemia hypertension hypothyroidism and monoclonal lymphocytosis and recurrent bile lateral pleural effusion, labs from today reviewed white cell count is 23 hemoglobin and hematocrit 8.9/28 platelet count of 154, sodium 1:30 percent and 4.7 BUN creatinine is 15/0.38 calcium 7.4 glucose 157 Objective - Vital Signs Vital signs: Vital Signs Temp 97.5 F L 02/02/23 07:08 Pulse 90 02/02/23 07:40 Resp 16 02/02/23 07:08 BP 115/71 02/02/23 07:08 Pulse Ox 95 02/02/23 07:30 FiO2 Intake & Output 02/01/23 02/02/23 02/02/23 18:59 06:59 18:59 Intake Total 240 Output Total 1250 Balance -1250 240 Weight 58 kg Intake: Oral 240 Output: Chest Tube Drainage 1250 Pleural Catheter Left 150 Pleural Catheter Right 1100 Other: Voiding Method Bedpan Bedpan Diaper Diaper # Voids 3 1 1 # Bowel Movements 1 1 - Exam General: non toxic, no distress, appears at stated age Derm: warm, dry Head: atraumatic, normocephalic, symmetric Eyes: EOMI, no lid lag, anicteric sclera Mouth: no lip lesion, mucus membranes moist Cardiovascular: S1S2 tachycardic, no murmur Lungs: Decreased breath sounds bilateral, no rhonchi, no rales , no accessory muscle use, bilateral Pleurx intact Abdominal: soft, nontender to palpation, no guarding, no appreciable organomegaly Ext: no gross muscle atrophy, no edema, no contractures Neuro: CN II-XI grossly intact, chronic right-sided weakness Psych: Alert and oriented x 2, flat affect - Labs CBC & Chem 7: 02/02/23 06:17 02/02/23 06:17 Labs: Abnormal Lab Results - Last 24 Hours (Table) 02/01/23 02/01/23 02/01/23 Range/Units 10: 11:34 11:34 WBC 19.9 H (3.8-10.6) k/uL RBC (3.80-5.40) m/uL Hgb 11.0 L (11.4-16.0) gm/dL Hct (34.0-46.0) % RDW 16.0 H (11.5-15.5) % Plt Count 145 L (150-450) k/uL Sodium 134 L (137-145) mmol/L Chloride (98-107) mmol/L Carbon Dioxide 20 L (22-30) mmol/L Creatinine 0.41 L (0.52-1.04) mg/dL Glucose 137 H (74-99) mg/dL POC Glucose (mg/dL) (70-110) mg/dL Calcium 7.3 L (8.4-10.2) mg/dL Procalcitonin 0.41 H (0.02-0.09) ng/mL 02/01/23 02/01/23 02/01/23 Range/Units 13:03 17:51 20:14 WBC (3.8-10.6) k/uL RBC (3.80-5.40) m/uL Hgb (11.4-16.0) gm/dL Hct (34.0-46.0) % RDW (11.5-15.5) % Plt Count (150-450) k/uL Sodium (137-145) mmol/L Chloride (98-107) mmol/L Carbon Dioxide (22-30) mmol/L Creatinine (0.52-1.04) mg/dL Glucose (74-99) mg/dL POC Glucose (mg/dL) 142 H 246 H 297 H (70-110) mg/dL Calcium (8.4-10.2) mg/dL Procalcitonin (0.02-0.09) ng/mL 02/02/23 02/02/23 02/02/23 Range/Units 06:17 06:17 07:15 WBC 23.1 H (3.8-10.6) k/uL RBC 3.34 L (3.80-5.40) m/uL Hgb 8.9 L D (11.4-16.0) gm/dL Hct 28.3 L (34.0-46.0) % RDW 16.0 H (11.5-15.5) % Plt Count (150-450) k/uL Sodium 132 L (137-145) mmol/L Chloride 108 H (98-107) mmol/L Carbon Dioxide 16 L (22-30) mmol/L Creatinine 0.38 L (0.52-1.04) mg/dL Glucose 145 H (74-99) mg/dL POC Glucose (mg/dL) 157 H (70-110) mg/dL Calcium 7.4 L (8.4-10.2) mg/dL Procalcitonin (0.02-0.09) ng/mL Assessment and Plan Assessment: CVA involving left frontal parietal occipital lobe status post TPA generalized weakness Chronic leukocytosis Thrombocytopenia 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
[2023-02-02 12:32] LABS: Glucose,Whole Blood 222 mg/dL (70-110)
[2023-02-02] MEDS: VANCOMYCIN 1,000 MG in SODIUM CHLORIDE 0.9% 250 ML IVPB SCH (12:46)
--- NOTE | 2023-02-02 12:57 | P.PN ---
Subjective Progress Note Date: 02/02/23 77-year-old female patient, hospitalized because of generalized weakness, ongoing shortness of breath, overall debility and weakness. Chest x-ray that was done time of admission showed bilateral pleural effusions and her last drainage from the Pleurx catheter was done 2 days ago. The [place] was elevated and she has chronic elevation a white cell count of 25 with a hemoglobin of 9.4. Sodium level is at 132, BUN is at 60 with a creatinine of 0.4. The patient remains on room air oxygen. She is afebrile and hemodynamically stable. She was started on broad-spectrum antibiotics. No clear indication for underlying pneumonia/sepsis. No aspiration. No nausea or vomiting. No diarrhea. Oral intake is quite diminished and she is very much debilitated. Her body mass index is 23. She was recently hospitalized for a CVA and this was then November 2022 and the patient received TPA.past medical history significant for diabetes mellitus, hyperlipidemia, hypertension, hypothyroidism, monoclonal B-cell lymphocytosis, and recurrent pleural effusions. On 02/02/2023, the patient is resting comfortably in bed.. Bilateral drainage of the pleural fluid was done and the patient denies having any major vessel difficulties for now. She is on 2 L of oxygen by nasal cannula with a pulse ox of 99%. Blood work was noted. White cell count remains chronically elevated at 23 with a hemoglobin of 8.9, BUN is a 50 with a creatinine of 0.3 and a sodium level is at 132. There is a drop in hemoglobin. There is no evidence of any acute bleeding and this patient. Rest of the medication remains unchanged. Oral intake is quite diminished. She is very much debilitated. Objective - Vital Signs Vital signs: Vital Signs Temp 97.5 F L 02/02/23 07:08 Pulse 90 02/02/23 07:40 Resp 16 02/02/23 07:08 BP 115/71 02/02/23 07:08 Pulse Ox 95 02/02/23 07:30 FiO2 Intake & Output 02/01/23 02/02/23 02/02/23 18:59 06:59 18:59 Intake Total 240 Output Total 1250 Balance -1250 240 Weight 58 kg Intake: Oral 240 Output: Chest Tube Drainage 1250 Pleural Catheter Left 150 Pleural Catheter Right 1100 Other: Voiding Method Bedpan Bedpan Bedpan Diaper Diaper Diaper # Voids 3 1 1 # Bowel Movements 1 1 - Exam GENERAL EXAM: Alert, 77-year-old white female appearing stated age, comfortable in no apparent distress., The patient is on room air oxygen, debilitated, weak, body mass index of 23.6 HEAD: Normocephalic and atraumatic EYES: Normal reaction of pupils, equal size. NOSE: Clear with pink turbinates. THROAT: No erythema or exudates. NECK: No masses, no JVD. CHEST: No chest wall deformity. Bilateral Pleurx catheters LUNGS: Equal air entry with no crackles, wheeze, rhonchi or dullness. On room air. No conversational dyspnea or accessory muscle use.. The patient diminished breath on bilaterally and the patient is a Pleurx catheter bilaterally. CVS: S1 and S2 normal with no audible murmur, regular rhythm. No extra heart sounds ABDOMEN: No hepatosplenomegaly, active bowel sounds, no guarding or rigidity. SPINE: No scoliosis or deformity SKIN: No rashes CENTRAL NERVOUS SYSTEM: Patient is alert. Bilateral upper extremities 4 out of 5 strength, bilateral lower extremities 3 out of 5 strength, very poor historian, occasional confusion, no cranial nerve deficits EXTREMITIES: There is 3+ pitting bilateral lower extremity edema. No clubbing, or cyanosis. Peripheral pulses are intact. - Labs CBC & Chem 7: 02/02/23 06:17 02/02/23 06:17 Labs: Abnormal Lab Results - Last 24 Hours (Table) 02/01/23 02/01/23 02/01/23 Range/Units 10: 11:34 11:34 WBC 19.9 H (3.8-10.6) k/uL RBC (3.80-5.40) m/uL Hgb 11.0 L (11.4-16.0) gm/dL Hct (34.0-46.0) % RDW 16.0 H (11.5-15.5) % Plt Count 145 L (150-450) k/uL Sodium 134 L (137-145) mmol/L Chloride (98-107) mmol/L Carbon Dioxide 20 L (22-30) mmol/L Creatinine 0.41 L (0.52-1.04) mg/dL Glucose 137 H (74-99) mg/dL POC Glucose (mg/dL) (70-110) mg/dL Calcium 7.3 L (8.4-10.2) mg/dL Procalcitonin 0.41 H (0.02-0.09) ng/mL 02/01/23 02/01/23 02/01/23 Range/Units 13:03 17:51 20:14 WBC (3.8-10.6) k/uL RBC (3.80-5.40) m/uL Hgb (11.4-16.0) gm/dL Hct (34.0-46.0) % RDW (11.5-15.5) % Plt Count (150-450) k/uL Sodium (137-145) mmol/L Chloride (98-107) mmol/L Carbon Dioxide (22-30) mmol/L Creatinine (0.52-1.04) mg/dL Glucose (74-99) mg/dL POC Glucose (mg/dL) 142 H 246 H 297 H (70-110) mg/dL Calcium (8.4-10.2) mg/dL Procalcitonin (0.02-0.09) ng/mL 02/02/23 02/02/23 02/02/23 Range/Units 06:17 06:17 07:15 WBC 23.1 H (3.8-10.6) k/uL RBC 3.34 L (3.80-5.40) m/uL Hgb 8.9 L D (11.4-16.0) gm/dL Hct 28.3 L (34.0-46.0) % RDW 16.0 H (11.5-15.5) % Plt Count (150-450) k/uL Sodium 132 L (137-145) mmol/L Chloride 108 H (98-107) mmol/L Carbon Dioxide 16 L (22-30) mmol/L Creatinine 0.38 L (0.52-1.04) mg/dL Glucose 145 H (74-99) mg/dL POC Glucose (mg/dL) 157 H (70-110) mg/dL Calcium 7.4 L (8.4-10.2) mg/dL Procalcitonin (0.02-0.09) ng/mL Assessment and Plan Plan: Chronic bilateral pleural effusion, will need drainage. The patient has bilateral Pleurx catheter insertion and the patient was underlying periodic drainage on outpatient basis. The fluid has been translated on previous evaluations. Bilateral drainage was done through the Pleurx catheters. History of CVA post TPA administration. No focal neurological deficit. The patient generalized lower weakness.MRI of the brain showed areas of acute/subacute infarct involving the left frontal/parietal/occipital lobe. There was also nonspecific white matter changes. Neurology to interpret those findings.. The patient is currently on aspirin. No new onset focal n eurological deficit and the patient is still struggling with some difficulties with her speech/depression. She remains on aspirin. Chronic leukocytosis Thrombocytopenia, stable History of monoclonal B cell lymphocytosis, being followed outpatient by oncology Hyperlipidemia Essential hypertension Diabetes mellitus type 2, insulin-dependent, currently on Levemir insulin at a dose of 10 units Hypothyroidism , currently on thyroid hormone replacement on Synthroid 125 g daily basis Plan Drainage of the pleural fluid was done through the Pleurx catheters in more than 1 L of fluid was aspirated from each side Patient remains on oxygen 2 L/m nasal cannula Provide patient incentive spirometer Resume all medications IV fluids Overall generalized debility secondary to above-mentioned comorbidities We'll follow Prognosis remains quite poor
--- NOTE | 2023-02-02 14:06 | P.PN ---
Subjective Progress Note Date: 02/02/23 Principal diagnosis: Leukocytosis Patient is a 77-year-old female with a past medical history significant for diabetes mellitus hypertension hyperlipidemia patient did have a history of bilateral effusion and did have bilateral Pleurx catheter patient mention she drained her catheter every 2 days now presented to hospital with increasing shortness of breath , patient did have elevated white count and reportedly cloudy pleural fluid On today's evaluation that is 02/02/2023, the patient remains to be afebrile, the patient is breathing comfortably on room air and denies any shortness of breath, the patient denies any chest pain or worsening cough, patient denies Ab dominal pain and no nausea/vomiting or diarrhea . Patient white count slightly to 23.1, creatinine 0.3802 fluid cultures obtained currently pending Objective - Vital Signs Vital signs: Vital Signs Temp 97.7 F 02/02/23 11:53 Pulse 95 02/02/23 11:53 Resp 16 02/02/23 11:53 BP 99/61 02/02/23 11:53 Pulse Ox 96 02/02/23 11:53 FiO2 Intake & Output 02/01/23 02/02/23 02/02/23 18:59 06:59 18:59 Intake Total 240 Output Total 1250 Balance -1250 240 Weight 58 kg Intake: Oral 240 Output: Chest Tube Drainage 1250 Pleural Catheter Left 150 Pleural Catheter Right 1100 Other: Voiding Method Bedpan Bedpan Bedpan Diaper Diaper Diaper # Voids 3 1 1 # Bowel Movements 1 1 - Exam GENERAL DESCRIPTION: An elderly female lying in bed in no distress RESPIRATORY SYSTEM: Unlabored breathing , decreased breath sound at the base HEART: S1 S2 regular rate and rhythm , ABDOMEN: Soft , no tenderness EXTREMITIES: No edema feet - Labs CBC & Chem 7: 02/02/23 06:17 02/02/23 06:17 Labs: Abnormal Lab Results - Last 24 Hours (Table) 02/01/23 02/01/23 02/01/23 Range/Units 11:34 11:34 17:51 WBC (3.8-10.6) k/uL RBC (3.80-5.40) m/uL Hgb (11.4-16.0) gm/dL Hct (34.0-46.0) % RDW (11.5-15.5) % Plt Count 145 L (150-450) k/uL Sodium (137-145) mmol/L Chloride (98-107) mmol/L Carbon Dioxide (22-30) mmol/L Creatinine (0.52-1.04) mg/dL Glucose (74-99) mg/dL POC Glucose (mg/dL) 246 H (70-110) mg/dL Calcium (8.4-10.2) mg/dL Procalcitonin 0.41 H (0.02-0.09) ng/mL 02/01/23 02/02/23 02/02/23 Range/Units 20:14 06:17 06:17 WBC 23.1 H (3.8-10.6) k/uL RBC 3.34 L (3.80-5.40) m/uL Hgb 8.9 L D (11.4-16.0) gm/dL Hct 28.3 L (34.0-46.0) % RDW 16.0 H (11.5-15.5) % Plt Count (150-450) k/uL Sodium 132 L (137-145) mmol/L Chloride 108 H (98-107) mmol/L Carbon Dioxide 16 L (22-30) mmol/L Creatinine 0.38 L (0.52-1.04) mg/dL Glucose 145 H (74-99) mg/dL POC Glucose (mg/dL) 297 H (70-110) mg/dL Calcium 7.4 L (8.4-10.2) mg/dL Procalcitonin (0.02-0.09) ng/mL 02/02/23 02/02/23 Range/Units 07:15 11:56 WBC (3.8-10.6) k/uL RBC (3.80-5.40) m/uL Hgb (11.4-16.0) gm/dL Hct (34.0-46.0) % RDW (11.5-15.5) % Plt Count (150-450) k/uL Sodium (137-145) mmol/L Chloride (98-107) mmol/L Carbon Dioxide (22-30) mmol/L Creatinine (0.52-1.04) mg/dL Glucose (74-99) mg/dL POC Glucose (mg/dL) 157 H 222 H (70-110) mg/dL Calcium (8.4-10.2) mg/dL Procalcitonin (0.02-0.09) ng/mL Microbiology - Last 24 Hours (Table) 02/01/23 00:00 Blood Culture - Preliminary Blood 01/31/23 23:45 Blood Culture - Preliminary Blood Assessment and Plan (1) Leukocytosis Current Visit: Yes Status: Acute Priority: High Code(s): D72.829 - ELEVATED WHITE BLOOD CELL COUNT, UNSPECIFIED SNOMED Code(s): 069214691 Plan: 1patient with a leukocytosis at this patient who did have a history of recurrent effusion requiring Pleurx catheter placement and was complaining of shortness of breath and increasing cloudiness to the right Pleurx catheter fluid output likely the source of this elevated white count and will need to call for the resistant gram-positive as well as gram-negative pathogen 2-pleural fluid has been sent for Gram stain cell count and culture and results will be followed 3-patient to continue with the vancomycin and cefepime to 2 g every 8 hours Dictation was produced using [employer] dictation software. please excuse any grammatical, word or spelling errors. Time with Patient: Less than 30
--- NOTE | 2023-02-02 15:09 | P.PN ---
Subjective Progress Note Date: 02/02/23 69-year-old female with PMH of B-cell lymphocytosis, diabetes mellitus, hypertension, dyslipidemia, hypothyroidism, bilateral pleural effusion presents to the ED from [facility] for confusion and weakness. Her is at bedside contributing to her history. 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 Has been unable to take care of the at home thus transferred to [facility] for rehab. reports deterioration of the patient over the past 3 weeks. She is participating less with PT and OT and wanting hospice. is agreeable for hospice (he is the POA) but both the daughters are not in agreement so he is conflicted. Used to enjoy reading and watching home improvement TV, not anymore. She reports a good appetite and no issues with sleeping. She reports a depressed mood. Denies suicidal of homicidal ideation. Denies auditory of visual hallucinations. She continues to have right sided residual weakness with confusion and difficulty finding words. She has bilateral Pleurx catheters for history of bilateral pleural effusion that requires regular draining. In the ED, she underwent extensive evaluation. Vital signs show tachycardia with HR in the 90s. CBC showed WBC count 25.8, Hg 9.4, Plt 128. CMP showed Na 132, K 5.3, bicab 20, Cr 0.44, glucose 199, Ca 7, albumin 1.9. UA 4+ ketones. CXR showed moderate right and small left pleural effusion with bilateral chest tubs and no PTX. Patient admitted for further workup and management of symptoms. 02/02 Patient was seen and examined. She reports no complaints. ID recommends continued IV Abx while waiting for pleural fluid cultures to finalize. CBC shows WBC 23.1, Hg 8.9. BMP Na 132, Cl 108, bicab 16, Cr 0.38, glucose 145, Ca 7.4. General: non toxic, no distress, appears at stated age Derm: warm, dry Head: atraumatic, normocephalic, symmetric Eyes: EOMI, no lid lag, anicteric sclera Mouth: no lip lesion, mucus membranes moist Cardiovascular: S1S2 tachycardic, no murmur Lungs: Decreased breath sounds bilateral, no rhonchi, no rales , no accessory muscle use, bilateral Pleurx intact Ext: no gross muscle atrophy, no edema, no contractures Neuro: chronic right-sided weakness Psych: Alert and oriented x 2, flat affect Severe depression SIRS unknown etiology Chronic bilateral pleural effusion Diabetes mellitus with hyperglycemia Normocytic anemia with Thrombocytopenia Hyponatremia Based on my assessment of this patient, this patient meets a high complexity level of care. Patient has a CVA with severe exacerbation or progression of disease which poses a threat to life or bodily function. She meets sepsis criteria with WBC count and tachycardia. No obvious source of infection as of now but with bilateral pleural effusions and Pleurx catheters. Severe depression: Common post CVA. Patient has decision making capacity. She is wanting hospice, is agreeable but daughters are reluctant. At this time, she is not at imminent risk of . They are both agreeable for medical treatment at this time. If she deteriorates during this hospitalization, we will re-address hospice at that time. I do agree she woud be a good candidate for palliative care and hospice at discharge. We will start her on Zoloft 50 mg PO QD in the meantime. SIRS unknown etiology: Leukocytosis and tachycardia. Leukocytosis appears chronic. Obtain Bcx and Sputum Cx. Obtain pleural fluid Cx. Obtain procalcitonin. Start Vancomycin and Cefepime. Telemetry monitoring. Consult ID. Chronic bilateral pleural effusion: Pulmonology consulted. Diabetes mellitus with hyperglycemia. ISS. Accuchecks ACHS. Hypoglycemic precautions. Normocytic anemia: Hg 8.9. No signs of active bleeding. Continue to monitor. Transfuse if Hg < 7 or Plt < 10. Hyponatremia: Likely due to dehydration. Start NS at 75 cc/hr. Patient is DNR/DNI. is the decision maker. Lovenox for DVT prophylaxis. I have reviewed the following data governance consultant notes: ID and Pulm note. I have reviewed the results of the following tests: As above. I have ordered the following tests: As above. I have discussed the care of this patient with the following independent historian: I have independently interpreted the following test below: I have discussed the management of this patient with the following physician: Objective - Vital Signs Vital signs: Vital Signs Temp 97.7 F 02/02/23 11:53 Pulse 95 02/02/23 11:53 Resp 16 02/02/23 11:53 BP 99/61 02/02/23 11:53 Pulse Ox 96 02/02/23 11:53 FiO2 Intake & Output 02/01/23 02/02/23 02/02/23 18:59 06:59 18:59 Intake Total 240 Output Total 1250 Balance -1250 240 Weight 58 kg Intake: Oral 240 Output: Chest Tube Drainage 1250 Pleural Catheter Left 150 Pleural Catheter Right 1100 Other: Voiding Method Bedpan Bedpan Bedpan Diaper Diaper Diaper # Voids 3 1 1 # Bowel Movements 1 1 - Labs CBC & Chem 7: 02/02/23 06:17 02/02/23 06:17 Labs: Abnormal Lab Results - Last 24 Hours (Table) 02/01/23 02/01/23 02/01/23 Range/Units 11:34 17:51 20:14 WBC (3.8-10.6) k/uL RBC (3.80-5.40) m/uL Hgb (11.4-16.0) gm/dL Hct (34.0-46.0) % RDW (11.5-15.5) % Sodium (137-145) mmol/L Chloride (98-107) mmol/L Carbon Dioxide (22-30) mmol/L Creatinine (0.52-1.04) mg/dL Glucose (74-99) mg/dL POC Glucose (mg/dL) 246 H 297 H (70-110) mg/dL Calcium (8.4-10.2) mg/dL Procalcitonin 0.41 H (0.02-0.09) ng/mL 02/02/23 02/02/23 02/02/23 Range/Units 06:17 06:17 07:15 WBC 23.1 H (3.8-10.6) k/uL RBC 3.34 L (3.80-5.40) m/uL Hgb 8.9 L D (11.4-16.0) gm/dL Hct 28.3 L (34.0-46.0) % RDW 16.0 H (11.5-15.5) % Sodium 132 L (137-145) mmol/L Chloride 108 H (98-107) mmol/L Carbon Dioxide 16 L (22-30) mmol/L Creatinine 0.38 L (0.52-1.04) mg/dL Glucose 145 H (74-99) mg/dL POC Glucose (mg/dL) 157 H (70-110) mg/dL Calcium 7.4 L (8.4-10.2) mg/dL Procalcitonin (0.02-0.09) ng/mL 02/02/23 Range/Units 11:56 WBC (3.8-10.6) k/uL RBC (3.80-5.40) m/uL Hgb (11.4-16.0) gm/dL Hct (34.0-46.0) % RDW (11.5-15.5) % Sodium (137-145) mmol/L Chloride (98-107) mmol/L Carbon Dioxide (22-30) mmol/L Creatinine (0.52-1.04) mg/dL Glucose (74-99) mg/dL POC Glucose (mg/dL) 222 H (70-110) mg/dL Calcium (8.4-10.2) mg/dL Procalcitonin (0.02-0.09) ng/mL Microbiology - Last 24 Hours (Table) 02/01/23 00:00 Blood Culture - Preliminary Blood 01/31/23 23:45 Blood Culture - Preliminary Blood
[2023-02-02 17:07] LABS: Glucose,Whole Blood 239 mg/dL (70-110)
[2023-02-02 20:22] LABS: Glucose,Whole Blood 313 mg/dL (70-110)
[2023-02-02] MEDS: ATORVASTATIN 80 MG TAB PO SCH (21:26)
[2023-02-02] MEDS: MONTELUKAST 10 MG TAB PO SCH (21:26)
[2023-02-03] MEDS: VANCOMYCIN 1,000 MG in SODIUM CHLORIDE 0.9% 250 ML IVPB SCH ×3 (00:42→23:13)
[2023-02-03] MEDS: CEFEPIME 2 GM in SODIUM CHLORIDE 0.9% 100 ML IVPB SCH ×4 (00:42→23:15)
[2023-02-03] MEDS: LEVOTHYROXINE 125 MCG TAB PO SCH (05:45)
[2023-02-03] MEDS: PANTOPRAZOLE 40 MG TABLET PO SCH (05:45)
[2023-02-03] MEDS: SODIUM CHLORIDE 0.9% 1,000 ML IV SCH ×2 (05:49→16:59)
[2023-02-03] MEDS: BUDESONIDE 0.5 MG/2 ML NEBU INHALATION SCH ×2 (07:22→20:37)
[2023-02-03] MEDS: IPRATROPIUM-ALBUTEROL 3 ML NEB INHALATION SCH ×4 (07:22→20:37)
[2023-02-03 07:41] LABS: Glucose,Whole Blood 107 mg/dL (70-110)
[2023-02-03] MEDS: INSULIN ASPART (NovoLOG) 100 UNIT/ML VIAL SQ SCH ×4 (07:47→20:58)
[2023-02-03] MEDS: ASPIRIN 81 MG PO SCH (08:41)
[2023-02-03] MEDS: LORATADINE 10 MG TAB PO SCH (08:41)
[2023-02-03] MEDS: ENOXAPARIN 40 MG/0.4 ML SYRINGE SQ SCH (08:41)
[2023-02-03] MEDS: SERTRALINE 50 MG TAB PO SCH (08:41)
[2023-02-03 09:32] LABS: Appearance,BF Clear (Clear)
--- NOTE | 2023-02-03 10:23 | P.PN ---
Subjective Progress Note Date: 02/03/23 Principal diagnosis: CVA involving left frontal parietal occipital lobe status post TPA generalized weakness Chronic leukocytosis Thrombocytopenia History of monoclonal B cell lymphocytosis being followed by oncology Dyslipidemia Hypertension hypertensive cardiovascular disease Type 2 diabetes mellitus uncontrolled on short and long-acting insulin Hypothyroidism Bilateral pleural effusion status post Pleurx catheter 02/03/2023, patient seen eval examined during rounds labs reviewed medications reviewed, care plan discussed, denies any chest pain, patient underwent bilateral catheter drainage remains on 2 L oxygen, pleural fluid analysis answers are pending 02/02/2023, patient seen eval examined during the rounds labs reviewed medications reviewed, patient seen and evaluated examined while covering for Dr. Steve Barron reviewed data revealed that patient is a 77-year-old male hospitalized due to progressive weakness and shortness of breath due to rise in pleural effusion, patient has bilateral Pleurx catheter which was inserted 3 days ago pulmonary is seeing plan is to remove the fluid, patient remains on broad-spectrum antibiotics patient is weak and debilitated, with no BMI of 23 on the patient is status post TPA for recent CVA extensive in nature likely in November 2022 other active medical problems include diabetes dyslipidemia hypertension hypothyroidism and monoclonal lymphocytosis and recurrent bile lateral pleural effusion, labs from today reviewed white cell count is 23 hemoglobin and hematocrit 8.9/28 platelet count of 154, sodium 1:30 percent and 4.7 BUN creatinine is 15/0.38 calcium 7.4 glucose 157 Objective - Vital Signs Vital signs: Vital Signs Temp 97.6 F 02/03/23 07:06 Pulse 94 02/03/23 07:31 Resp 16 02/03/23 07:06 BP 115/69 02/03/23 07:06 Pulse Ox 95 02/03/23 07:06 FiO2 Intake & Output 02/02/23 02/03/23 02/03/23 18:59 06:59 18:59 Intake Total 900 Balance 900 Weight 56 kg Intake: Intake, IV Titration 900 Amount Sodium Chloride 0.9% 1, 900 000 ml @ 75 mls/hr IV . [id number] [facility] [place] Rx#:[id number] Other: Voiding Method Bedpan Bedpan Bedpan Diaper Diaper Diaper # Voids 1 1 # Bowel Movements 1 1 - Exam General: non toxic, no distress, appears at stated age Derm: warm, dry Head: atraumatic, normocephalic, symmetric Eyes: EOMI, no lid lag, anicteric sclera Mouth: no lip lesion, mucus membranes moist Cardiovascular: S1S2 tachycardic, no murmur Lungs: Decreased breath sounds bilateral, no rhonchi, no rales , no accessory m uscle use, bilateral Pleurx intact Abdominal: soft, nontender to palpation, no guarding, no appreciable organomegaly Ext: no gross muscle atrophy, no edema, no contractures Neuro: CN II-XI grossly intact, chronic right-sided weakness Psych: Alert and oriented x 2, flat affect - Labs CBC & Chem 7: 02/02/23 06:17 02/02/23 06:17 Labs: Abnormal Lab Results - Last 24 Hours (Table) 02/02/23 02/02/23 02/02/23 Range/Units 11:56 17:06 20:20 POC Glucose (mg/dL) 222 H 239 H 313 H (70-110) mg/dL Microbiology - Last 24 Hours (Table) 02/01/23 00:00 Blood Culture - Preliminary Blood 01/31/23 23:45 Blood Culture - Preliminary Blood Assessment and Plan Assessment: CVA involving left frontal parietal occipital lobe status post TPA generalized weakness Chronic leukocytosis Thrombocytopenia History of monoclonal B cell lymphocytosis being followed by oncology Dyslipidemia Hypertension hypertensive cardiovascular disease Type 2 diabetes mellitus uncontrolled on short and long-acting insulin Hypothyroidism Bilateral pleural effusion status post Pleurx catheter Plan: Pulmonology and ID service following following, increase activity as tolerated Patient undergone removal of pleural fluid hopefully that will improve respiratory status PT OT evaluation to increase exercise increase tolerance Follow labs closely appreciate input from consultants Time with Patient: Greater than 30
[2023-02-03] MEDS ORDERED: VANCOMYCIN TROUGH DUE 1 EACH MISC MISCELLANE ONE (11:00)
[2023-02-03 12:01] LABS: Glucose,Whole Blood 158 mg/dL (70-110)
[2023-02-03 12:21] LABS: African American GFR (CKD) >90 (>60 ml/min/1.73 sqM); Non-African American GFR(CKD) >90 (>60 ml/min/1.73 sqM)
--- NOTE | 2023-02-03 13:02 | P.PN ---
Subjective Progress Note Date: 02/03/23 69-year-old female with PMH of B-cell lymphocytosis, diabetes mellitus, hypertension, dyslipidemia, hypothyroidism, bilateral pleural effusion presents to the ED from [facility] for confusion and weakness. Her is at bedside contributing to her history. 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 Has been unable to take care of the at home thus transferred to [facility] for rehab. reports deterioration of the patient over the past 3 weeks. She is participating less with PT and OT and wanting hospice. is agreeable for hospice (he is the POA) but both the daughters are not in agreement so he is conflicted. Used to enjoy reading and watching home improvement TV, not anymore. She reports a good appetite and no issues with sleeping. She reports a depressed mood. Denies suicidal of homicidal ideation. Denies auditory of visual hallucinations. She continues to have right sided residual weakness with confusion and difficulty finding words. She has bilateral Pleurx catheters for history of bilateral pleural effusion that requires regular draining. In the ED, she underwent extensive evaluation. Vital signs show tachycardia with HR in the 90s. CBC showed WBC count 25.8, Hg 9.4, Plt 128. CMP showed Na 132, K 5.3, bicab 20, Cr 0.44, glucose 199, Ca 7, albumin 1.9. UA 4+ ketones. CXR showed moderate right and small left pleural effusion with bilateral chest tubs and no PTX. Patient admitted for further workup and management of symptoms. 02/02 Patient was seen and examined. She reports no complaints. ID recommends continued IV Abx while waiting for pleural fluid cultures to finalize. CBC shows WBC 23.1, Hg 8.9. BMP Na 132, Cl 108, bicab 16, Cr 0.38, glucose 145, Ca 7.4. Procal 0.41. 02/03 Patient was seen and examined. Generally feeling well. She has no complaints today. Renal function within normal limits. Vanc trough 17.6. Pleural Cx shows moderate PMN with no organisms. BCx negative at 24H. Currently on Vancomycin and Cefepime. General: non toxic, no distress, appears at stated age Derm: warm, dry Head: atraumatic, normocephalic, symmetric Eyes: EOMI, no lid lag, anicteric sclera Mouth: no lip lesion, mucus membranes moist Cardiovascular: S1S2 tachycardic, no murmur Lungs: Decreased breath sounds bilateral, no rhonchi, no rales , no accessory muscle use, bilateral Pleurx intact Ext: no gross muscle atrophy, no edema, no contractures Neuro: chronic right-sided weakness Psych: Alert and oriented x 2, flat affect Severe depression SIRS unknown etiology Chronic bilateral pleural effusion Diabetes mellitus with hyperglycemia Normocytic anemia with Thrombocytopenia Hyponatremia Based on my assessment of this patient, this patient meets a high complexity level of care. Patient has a CVA with severe exacerbation or progression of disease which poses a threat to life or bodily function. She meets sepsis criteria with WBC count and tachycardia. No obvious source of infection as of now but with bilateral pleural effusions and Pleurx catheters. Severe depression: Common post CVA. Patient has decision making capacity. She is wanting hospice, is agreeable but daughters are reluctant. At this time, she is not at imminent risk of . They are both agreeable for medical treatment at this time. If she deteriorates during this hospitalization, we will re-address hospice at that time. I do agree she woud be a good candidate for palliative care and hospice at discharge. We will start her on Zoloft 50 mg PO QD in the meantime. SIRS unknown etiology: Leukocytosis and tachycardia. Leukocytosis appears chronic. Obtain Bcx and Sputum Cx. Obtain pleural fluid Cx. Procalcitonin elevated at 0.41. Start Vancomycin and Cefepime. Telemetry monitoring. ID on board. Chronic bilateral pleural effusion: Pulmonology on board. Diabetes mellitus with hyperglycemia. ISS. Accuchecks ACHS. Hypoglycemic precautions. Normocytic anemia: Hg 8.9. No signs of active bleeding. Continue to monitor. Transfuse if Hg < 7 or Plt < 10. Hyponatremia: Likely due to dehydration. Continue NS at 75 cc/hr. Patient is DNR/DNI. is the decision maker. Lovenox for DVT prophylaxis. I have reviewed the following clinical services consultant notes: ID and Pulm note. I have reviewed the results of the following tests: As above. I have ordered the following tests: CBC, BMP. I have discussed the care of this patient with the following independent historian: I have independently interpreted the following test below: I have discussed the management of this patient with the following physician: Objective - Vital Signs Vital signs: Vital Signs Temp 97.5 F L 02/03/23 11:51 Pulse 100 02/03/23 11:51 Resp 16 02/03/23 11:51 BP 119/71 02/03/23 11:51 Pulse Ox 97 02/03/23 11:51 FiO2 Intake & Output 02/02/23 02/03/23 02/03/23 18:59 06:59 18:59 Intake Total 900 Balance 900 Weight 56 kg Intake: Intake, IV Titration 900 Amount Sodium Chloride 0.9% 1, 900 000 ml @ 75 mls/hr IV . [id number] [facility] Rx#:[id number] Other: Voiding Method Bedpan Bedpan Bedpan Diaper Diaper Diaper # Voids 1 1 2 # Bowel Movements 1 1 1 - Labs CBC & Chem 7: 02/02/23 06:17 02/03/23 11:42 Labs: Abnormal Lab Results - Last 24 Hours (Table) 02/02/23 02/02/23 02/03/23 Range/Units 17:06 20:20 11:42 Creatinine 0.41 L (0.52-1.04) mg/dL POC Glucose (mg/dL) 239 H 313 H (70-110) mg/dL 02/03/23 Range/Units 11:55 Creatinine (0.52-1.04) mg/dL POC Glucose (mg/dL) 158 H (70-110) mg/dL Microbiology - Last 24 Hours (Table) 02/02/23 10:30 Gram Stain - Preliminary Pleural Fluid 02/01/23 00:00 Blood Culture - Preliminary Blood 01/31/23 23:45 Blood Culture - Preliminary Blood
--- NOTE | 2023-02-03 13:07 | P.PN ---
Subjective Progress Note Date: 02/03/23 77-year-old female patient, hospitalized because of generalized weakness, ongoing shortness of breath, overall debility and weakness. Chest x-ray that was done time of admission showed bilateral pleural effusions and her last drainage from the Pleurx catheter was done 2 days ago. The [place] was elevated and she has chronic elevation a white cell count of 25 with a hemoglobin of 9.4. Sodium level is at 132, BUN is at 60 with a creatinine of 0.4. The patient remains on room air oxygen. She is afebrile and hemodynamically stable. She was started on broad-spectrum antibiotics. No clear indication for underlying pneumonia/sepsis. No aspiration. No nausea or vomiting. No diarrhea. Oral intake is quite diminished and she is very much debilitated. Her body mass index is 23. She was recently hospitalized for a CVA and this was then November 2022 and the patient received TPA.past medical history significant for diabetes mellitus, hyperlipidemia, hypertension, hypothyroidism, monoclonal B-cell lymphocytosis, and recurrent pleural effusions. On 02/02/2023, the patient is resting comfortably in bed.. Bilateral drainage of the pleural fluid was done and the patient denies having any major vessel difficulties for now. She is on 2 L of oxygen by nasal cannula with a pulse ox of 99%. Blood work was noted. White cell count remains chronically elevated at 23 with a hemoglobin of 8.9, BUN is a 50 with a creatinine of 0.3 and a sodium level is at 132. There is a drop in hemoglobin. There is no evidence of any acute bleeding and this patient. Rest of the medication remains unchanged. Oral intake is quite diminished. She is very much debilitated. On 02/03/2023, the patient is 90 complaints. Oral intake is quite diminished. Episodes of confusion. No respiratory distress. Pleural fluid was again drained and another 500 mL of fluid was aspirated. No signs of respiratory distress at this point in time. She is afebrile. Objective - Vital Signs Vital signs: Vital Signs Temp 97.5 F L 02/03/23 11:51 Pulse 100 02/03/23 11:51 Resp 16 02/03/23 11:51 BP 119/71 02/03/23 11:51 Pulse Ox 97 02/03/23 11:51 FiO2 Intake & Output 02/02/23 02/03/23 02/03/23 18:59 06:59 18:59 Intake Total 900 Balance 900 Weight 56 kg Intake: Intake, IV Titration 900 Amount Sodium Chloride 0.9% 1, 900 000 ml @ 75 mls/hr IV . [id number] [facility] Rx#:[id number] Other: Voiding Method Bedpan Bedpan Bedpan Diaper Diaper Diaper # Voids 1 1 2 # Bowel Movements 1 1 1 - Labs CBC & Chem 7: 02/02/23 06:17 02/03/23 11:42 Labs: Abnormal Lab Results - Last 24 Hours (Table) 02/02/23 02/02/23 02/03/23 Range/Units 17:06 20:20 11:42 Creatinine 0.41 L (0.52-1.04) mg/dL POC Glucose (mg/dL) 239 H 313 H (70-110) mg/dL 02/03/23 Range/Units 11:55 Creatinine (0.52-1.04) mg/dL POC Glucose (mg/dL) 158 H (70-110) mg/dL Microbiology - Last 24 Hours (Table) 02/01/23 00:00 Blood Culture - Preliminary Blood 01/31/23 23:45 Blood Culture - Preliminary Blood 02/02/23 10:30 Gram Stain - Preliminary Pleural Fluid Assessment and Plan Plan: Chronic bilateral pleural effusion, will need drainage. The patient has bilateral Pleurx catheter insertion and the patient was underlying periodic drainage on outpatient basis. The fluid has been translated on previous evaluations. Bilateral drainage was done through the Pleurx catheters. History of CVA post TPA administration. No focal neurological deficit. The patient generalized lower weakness.MRI of the brain showed areas of acute/subacute infarct involving the left frontal/parietal/occipital lobe. There was also nonspecific white matter changes. Neurology to interpret those findings.. The patient is currently on aspirin. No new onset focal neurological deficit and the patient is still struggling with some difficulties with her speech/depression. She remains on aspirin. Chronic leukocytosis Thrombocytopenia, stable History of monoclonal B cell lymphocytosis, being followed outpatient by oncology Hyperlipidemia Essential hypertension Diabetes mellitus type 2, insulin-dependent, currently on Levemir insulin at a dose of 10 units Hypothyroidism , currently on thyroid hormone replacement on Synthroid 125 g daily basis Plan Adequate drainage of the pleural fluid was done bilaterally Patient remains on oxygen 2 L/m nasal cannula, stable Provide patient incentive spirometer Resume all medications IV fluids Overall generalized debility secondary to above-mentioned comorbidities We'll follow Prognosis remains quite poor Pulmonary care services will sign off
--- NOTE | 2023-02-03 16:13 | P.PN ---
Subjective Progress Note Date: 02/03/23 Principal diagnosis: Leukocytosis Patient is a 77-year-old female with a past medical history significant for diabetes mellitus hypertension hyperlipidemia patient did have a history of bilateral effusion and did have bilateral Pleurx catheter patient mention she drained her catheter every 2 days now presented to hospital with increasing shortness of breath , patient did have elevated white count and reportedly cloudy pleural fluid On today's evaluation that is 02/03/2023, the patient denies any fever or chills, the patient is breathing comfortably on room air and no need for supplemental oxygen, the patient denies any chest pain or worsening cough and no sputum production, patient denies nausea/vomiting or diarrhea and no abdominal pain Patient white count slightly to 23.1 as of yesterday no CBC was done today, creatinine is 0.41 fluid cultures obtained currently pending Objective - Vital Signs Vital signs: Vital Signs Temp 97.5 F L 02/03/23 11:51 Pulse 100 02/03/23 11:51 Resp 16 02/03/23 11:51 BP 119/71 02/03/23 11:51 Pulse Ox 97 02/03/23 11:51 FiO2 Intake & Output 02/02/23 02/03/23 02/03/23 18:59 06:59 18:59 Intake Total 900 Balance 900 Weight 56 kg Intake: Intake, IV Titration 900 Amount Sodium Chloride 0.9% 1, 900 000 ml @ 75 mls/hr IV . [id number] [facility] Rx#:[id number] Other: Voiding Method Bedpan Bedpan Bedpan Diaper Diaper Diaper # Voids 1 1 2 # Bowel Movements 1 1 1 - Exam GENERAL DESCRIPTION: An elderly female lying in bed in no distress RESPIRATORY SYSTEM: Unlabored breathing , decreased breath sound at the base HEART: S1 S2 regular rate and rhythm , ABDOMEN: Soft , no tenderness EXTREMITIES: No edema feet - Labs CBC & Chem 7: 02/02/23 06:17 02/03/23 11:42 Labs: Abnormal Lab Results - Last 24 Hours (Table) 02/02/23 02/02/23 02/03/23 Range/Units 17:06 20:20 11:42 Creatinine 0.41 L (0.52-1.04) mg/dL POC Glucose (mg/dL) 239 H 313 H (70-110) mg/dL 02/03/23 Range/Units 11:55 Creatinine (0.52-1.04) mg/dL POC Glucose (mg/dL) 158 H (70-110) mg/dL Microbiology - Last 24 Hours (Table) 02/02/23 10:30 Gram Stain - Preliminary Pleural Fluid 02/01/23 00:00 Blood Culture - Preliminary Blood 01/31/23 23:45 Blood Culture - Preliminary Blood Assessment and Plan (1) Leukocytosis Current Visit: Yes Status: Acute Priority: High Code(s): D72.829 - ELEVATED WHITE BLOOD CELL COUNT, UNSPECIFIED SNOMED Code(s): 308658691 Plan: 1patient with a leukocytosis at this patient who did have a history of recurrent effusion requiring Pleurx catheter placement and was complaining of s hortness of breath and increasing cloudiness to the right Pleurx catheter fluid output likely the source of this elevated white count and will need to call for the resistant gram-positive as well as gram-negative pathogen 2-pleural fluid has been sent for Gram stain cell count and culture and results will be followed 3-patient to continue with the vancomycin and cefepime to 2 g every 8 hours while waiting for the cultures to finalize and recheck CBC with a.m. lab Dictation was produced using [employer] dictation software. please excuse any grammatical, word or spelling errors. Time with Patient: Less than 30
[2023-02-03 17:07] LABS: Glucose,Whole Blood 162 mg/dL (70-110)
[2023-02-03] MEDS: MONTELUKAST 10 MG TAB PO SCH (20:10)
[2023-02-03] MEDS: ATORVASTATIN 80 MG TAB PO SCH (20:10)
[2023-02-03 20:25] LABS: Glucose,Whole Blood 216 mg/dL (70-110)
[2023-02-04 02:38] VITALS: RESP 16
[2023-02-04] MEDS: LEVOTHYROXINE 125 MCG TAB PO SCH (06:06)
[2023-02-04] MEDS: SODIUM CHLORIDE 0.9% 1,000 ML IV SCH (06:06)
[2023-02-04 07:22] LABS: African American GFR (CKD) >90 (>60 ml/min/1.73 sqM); Anion Gap 5 mmol/L; Blood Urea Nitrogen 14 mg/dL (7-17); Calcium 7.2 mg/dL (8.4-10.2); Carbon Dioxide 19 mmol/L (22-30); Chloride 108 mmol/L (98-107); Glucose 148 mg/dL (74-99); Non-African American GFR(CKD) >90 (>60 ml/min/1.73 sqM); Potassium 4.9 mmol/L (3.5-5.1); Sodium 132 mmol/L (137-145)
[2023-02-04 07:25] LABS: C Reactive Protein 1.5 mg/dL (<1.0)
[2023-02-04] MEDS: IPRATROPIUM-ALBUTEROL 3 ML NEB INHALATION SCH ×3 (07:42→15:15)
[2023-02-04] MEDS: BUDESONIDE 0.5 MG/2 ML NEBU INHALATION SCH (07:42)
[2023-02-04 08:04] LABS: Glucose,Whole Blood 148 mg/dL (70-110)
[2023-02-04] MEDS: INSULIN ASPART (NovoLOG) 100 UNIT/ML VIAL SQ SCH ×2 (08:14→12:56)
[2023-02-04] MEDS: SERTRALINE 50 MG TAB PO SCH (08:47)
[2023-02-04] MEDS: ENOXAPARIN 40 MG/0.4 ML SYRINGE SQ SCH (08:47)
[2023-02-04] MEDS: ASPIRIN 81 MG PO SCH (08:47)
[2023-02-04] MEDS: PANTOPRAZOLE 40 MG TABLET PO SCH (08:47)
[2023-02-04] MEDS: LORATADINE 10 MG TAB PO SCH (08:47)
[2023-02-04] MEDS: CEFEPIME 2 GM in SODIUM CHLORIDE 0.9% 100 ML IVPB SCH (08:48)
[2023-02-04 10:10] LABS: Basophils # (A) 0.07 X 10*3/uL (0.00-0.10); Basophils % (A) 0.3 %; Eosinophils # (A) 0.13 X 10*3/uL (0.04-0.35); Eosinophils % (A) 0.6 %; HCT 30.2 % (37.2-46.3); HGB 9.2 d/dL (12.0-15.0); Lymphocytes # (A) 2.53 X 10*3/uL (0.90-5.00); Lymphocytes % (A) 10.9 %; MCH 25.1 pg (27.0-32.0); MCHC 30.5 d/dL (32.0-37.0); MCV 82.5 FL (80.0-97.0); Monocytes # (A) 6.42 X 10*3/uL (0.20-1.00); Monocytes % (A) 27.8 %; NRBC Per 100 WBC 0.02 X 10*3/uL (0.00-0.01); Neutrophils # (A) 13.45 X 10*3/uL (1.80-7.70); Neutrophils % (A) 58.2 %; Platelet Count 182 X 10*3/uL (140-440); RBC 3.66 X 10*6/uL (4.10-5.20); RDW 16.6 % (11.5-14.5); WBC 23.12 X 10*3/uL (4.50-10.00)
[2023-02-04 12:44] LABS: Glucose,Whole Blood 170 mg/dL (70-110)
[2023-02-04] MEDS: VANCOMYCIN 1,000 MG in SODIUM CHLORIDE 0.9% 250 ML IVPB SCH (12:56)
[2023-02-04 13:14] VITALS: BP 109/67; PULSE 102; TEMP 98
--- NOTE | 2023-02-04 13:47 | P.DS ---
Providers Date of admission: 02/01/23 13:10 Expected date of discharge: 02/04/23 Attending physician: Mario Gaimng MD Consults: 02/01/23 10:13 Consult Physician Routine Consulting Provider: Nathaniel Palomo Consult Reason/Comments: sepsis Do you want consulting provider notified?: Yes Consult Physician Stat Consulting Provider: Katie Rodgers Consult Reason/Comments: Recurrent pleural effusion Do you want consulting provider notified?: Yes Primary care physician: [facility] Course: 69-year-old female with PMH of B-cell lymphocytosis, diabetes mellitus, hypertension, dyslipidemia, hypothyroidism, bilateral pleural effusion presents to the ED from [facility] for confusion and weakness. Her is at bedside contributing to her history. 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 Has been unable to take care of the at home thus transferred to [facility] for rehab. reports deterioration of the patient over the past 3 weeks. She is participating less with PT and OT and wanting hospice. is agreeable for hospice (he is the POA) but both the daughters are not in agreement so he is conflicted. Used to enjoy reading and watching [employer] TV, not anymore. She reports a good appetite and no issues with sleeping. She reports a depressed mood. Denies suicidal of homicidal ideation. Denies auditory of visual hallucinations. She continues to have right sided residual weakness with confusion and difficulty finding words. She has bilateral Pleurx catheters for history of bilateral pleural effusion that requires regular draining. In the ED, she underwent extensive evaluation. Vital signs show tachycardia with HR in the 90s. CBC showed WBC count 25.8, Hg 9.4, Plt 128. CMP showed Na 132, K 5.3, bicab 20, Cr 0.44, glucose 199, Ca 7, albumin 1.9. UA 4+ ketones. CXR showed moderate right and small left pleural effusion with bilateral chest tubs and no PTX. Patient admitted for further workup and management of symptoms. 02/02 Patient was seen and examined. She reports no complaints. ID recommends continued IV Abx while waiting for pleural fluid cultures to finalize. CBC shows WBC 23.1, Hg 8.9. BMP Na 132, Cl 108, bicab 16, Cr 0.38, glucose 145, Ca 7.4. Procal 0.41. 10/29 Patient was seen and examined. Generally feeling well. She has no complai nts today. Renal function within normal limits. Vanc trough 17.6. Pleural Cx shows moderate PMN with no organisms. BCx negative at 24H. Currently on Vancomycin and Cefepime. 02/04 Patient was seen and examined. She remains comfortable. She has no complaints. Hemodynamically stable. Afebrile. CBC shows WBC 23.12 Hg 9.2. BMP Na 132, Cl 10, bicarb 19, Cr 0.4, glucose 148, Ca 7.2. CRP is 1.5. No obvious source of infection has been identified. Case discussed with Dr. Palomo, cultures have been negative so far, recommends 14 days of Augmentin. Her leukocytosis is chronically elevated and family is in the process of working her up in the outpatient setting. Plans to go back to [facility] for continued rehab today. Follow up with PCP within 1-2 days. Follow up with Dr. Palomo and Dr. Silva within 1 week. Pertinent studies include CXR. General: non toxic, no distress, appears at stated age Derm: warm, dry Head: atraumatic, normocephalic, symmetric Eyes: EOMI, no lid lag, anicteric sclera Mouth: no lip lesion, mucus membranes moist Cardiovascular: S1S2 tachycardic, no murmur Lungs: Decreased breath sounds bilateral, no rhonchi, no rales , no accessory muscle use, bilateral Pleurx intact Ext: no gross muscle atrophy, no edema, no contractures Neuro: chronic right-sided weakness Psych: Alert and oriented x 2, flat affect Discharge Diagnosis: Severe depression SIRS unknown etiology Chronic bilateral pleural effusion Diabetes mellitus with hyperglycemia Normocytic anemia with Thrombocytopenia Hyponatremia This complex discharge took 35 minutes to complete. Patient Condition at Discharge: Stable Plan - Discharge Summary Discharge Rx Participant: No New Discharge Prescriptions: New Amoxic-Pot Clav 875-125Mg [Augmentin 875-125] 1 tab PO Q12HR 14 Days #85 tab Sertraline [Zoloft] 50 mg PO DAILY tab Continue Loratadine [Claritin] 10 mg PO DAILY Ondansetron [Zofran] 4 mg PO Q4H PRN PRN Reason: Nausea Montelukast [Singulair] 10 mg PO HS Calcium Carb-Vit D 500Mg-5Mcg [Oscal 500+D 5 Mcg (200 Iu)] 1 tab PO HS Budesonide [Pulmicort] 0.5 mg INHALATION RT-BID ml Calcium Carbonate [Tums] 500 mg PO BID PRN PRN Reason: Indigestion rOPINIRole HCL [Requip] 0.5 mg PO BID PRN PRN Reason: restless legs Melatonin 3 mg PO HS PRN PRN Reason: Insomnia Pepto-Bismol Tablets 2 tab PO ACHS Acetaminophen Tab [Tylenol] 650 mg PO Q6H PRN PRN Reason: Pain Or Fever > 100.5 Insulin Lispro [humaLOG Kwikpen] See Protocol SQ ACHS Clotrimazole Cream [Lotrimin Cream] 1 applic TOPICAL BID Lactobacillus Acidophilus [Acidophilus] 1 tab PO BID Docusate [Colace] 100 mg PO BID Omeprazole [PriLOSEC] 20 mg PO DAILY Levothyroxine Sodium [Synthroid] 125 mcg PO DAILY Atorvastatin Calcium [Lipitor] 80 mg PO HS Ferrous Sulfate [Iron (65 MG Elemental)] 325 mg PO DAILY Aspirin 81 mg PO DAILY tab Ipratropium-Albuterol Nebulize [Duoneb 0.5 mg-3 mg/3 ml Soln] 3 ml INHALATION RT-QID each Sennosides [Senokot] 8.6 mg PO BID Magnesium Oxide [Mag-Ox] 400 mg PO BID Insulin Glargine [Lantus Vial] 15 unit SQ HS Lactose-Reduced Food [Ensure Plus] 237 ml PO DAILY Empagliflozin [Jardiance] 10 mg PO DAILY Discontinued Escitalopram Oxalate [Lexapro] 10 mg PO DAILY Discharge Medication List Ferrous Sulfate [Iron (65 MG Elemental)] 325 mg PO DAILY 09/10/22 [History] Loratadine [Claritin] 10 mg PO DAILY 09/10/22 [History] Montelukast [Singulair] 10 mg PO HS 09/10/22 [History] Ondansetron [Zofran] 4 mg PO Q4H PRN 09/10/22 [History] Calcium Carb-Vit D 500Mg-5Mcg [Oscal 500+D 5 Mcg (200 Iu)] 1 tab PO HS 10/11/22 [History] Aspirin 81 mg PO DAILY tab 11/29/22 [Rx] Budesonide [Pulmicort] 0.5 mg INHALATION RT-BID ml 11/29/22 [Rx] Ipratropium-Albuterol Nebulize [Duoneb 0.5 mg-3 mg/3 ml Soln] 3 ml INHALATION RT-QID each 11/29/22 [Rx] Acetaminophen Tab [Tylenol] 650 mg PO Q6H PRN 02/01/23 [History] Atorvastatin Calcium [Lipitor] 80 mg PO HS 02/01/23 [History] Calcium Carbonate [Tums] 500 mg PO BID PRN 02/01/23 [History] Clotrimazole Cream [Lotrimin Cream] 1 applic TOPICAL BID 02/01/23 [History] Docusate [Colace] 100 mg PO BID 02/01/23 [History] Empagliflozin [Jardiance] 10 mg PO DAILY 02/01/23 [History] Insulin Glargine [Lantus Vial] 15 unit SQ HS 02/01/23 [History] Insulin Lispro [humaLOG Kwikpen] See Protocol SQ ACHS 02/01/23 [History] Lactobacillus Acidophilus [Acidophilus] 1 tab PO BID 02/01/23 [History] Lactose-Reduced Food [Ensure Plus] 237 ml PO DAILY 02/01/23 [History] Levothyroxine Sodium [Synthroid] 125 mcg PO DAILY 02/01/23 [History] Magnesium Oxide [Mag-Ox] 400 mg PO BID 02/01/23 [History] Melatonin 3 mg PO HS PRN 02/01/23 [History] Omeprazole [PriLOSEC] 20 mg PO DAILY 02/01/23 [History] Pepto-Bismol Tablets 2 tab PO ACHS 02/01/23 [History] Sennosides [Senokot] 8.6 mg PO BID 02/01/23 [History] rOPINIRole HCL [Requip] 0.5 mg PO BID PRN 02/01/23 [History] Amoxic-Pot Clav 875-125Mg [Augmentin 875-125] 1 tab PO Q12HR 14 Days #85 tab 02/04/23 [Rx] Sertraline [Zoloft] 50 mg PO DAILY tab 02/04/23 [Rx] Follow up Appointment(s)/Referral(s): Steve Barron MD [Primary Care Provider] - 1-2 days Nathaniel Palomo MD [STAFF PHYSICIAN] - 1 Week Katie Rodgers MD [STAFF PHYSICIAN] - 1 Week Discharge Disposition: HOME SELF-CARE
== END 2023-02-04 16:12 | disposition home or self-care (01) | DRG 872 ==
LOC: EC 21:15 → 6NMEDSUR 23:23 → 5NMEDONC 02-01 02:15 → OBSVTOIN 02-01 13:10
PROVIDERS: ADMIT Family Medicine; ATTEND Family Medicine
DX: A41.9 Sepsis, unspecified organism (principal); F03.93 Unspecified dementia, unspecified severity, with mood disturbance; E87.1 Hypo-osmolality and hyponatremia; E87.5 Hyperkalemia; Z66 Do not resuscitate; D72.820 Lymphocytosis (symptomatic); Z20.822 Contact with and (suspected) exposure to COVID-19; F32.A Depression, unspecified; D64.9 Anemia, unspecified; D69.6 Thrombocytopenia, unspecified; E11.65 Type 2 diabetes mellitus with hyperglycemia; I69.318 Other symptoms and signs involving cognitive functions following cerebral infarction; E78.5 Hyperlipidemia, unspecified; I50.9 Heart failure, unspecified; I11.0 Hypertensive heart disease with heart failure; E03.9 Hypothyroidism, unspecified; Z79.890 Hormone replacement therapy; E86.0 Dehydration; Z79.4 Long term (current) use of insulin; Z79.82 Long term (current) use of aspirin; Z79.84 Long term (current) use of oral hypoglycemic drugs; Z79.899 Other long term (current) drug therapy; Z90.49 Acquired absence of other specified parts of digestive tract; Z98.42 Cataract extraction status, left eye; Z98.41 Cataract extraction status, right eye
CPT/HCPCS: 36415; 71046; 80048; 80053; 80202; 81001; 82565; 83605; 84145; 85025; 85027; 86140; 87040; 87070; 87205; 87635; 89050; 94640; 94760; 96365; 99285

== ENCOUNTER 2023-03-16 02:43 | Inpatient (IN) | payer MEDICARE, OTHER ==
[2023-03-16 05:12] LABS: Anisocytosis Slight; HCT 34.8 % (34.0-46.0); HGB 10.9 gm/dL (11.4-16.0); Hypochromasia Moderate; MCH 25.2 pg (25.0-35.0); MCHC 31.3 g/dL (31.0-37.0); MCV 80.5 fL (80.0-100.0); Mean Platelet Volume 12.3; Microcytosis Slight; RBC 4.33 m/uL (3.80-5.40); RDW 17.2 % (11.5-15.5); WBC 26.6 k/uL (3.8-10.6)
[2023-03-16 05:13] LABS: Platelet Count 137 k/uL (150-450)
[2023-03-16 05:22] LABS: ALT 12 U/L (4-34); AST 19 U/L (14-36); African American GFR (CKD) >90 (>60 ml/min/1.73 sqM); Albumin 2.2 g/dL (3.5-5.0); Alkaline Phosphatase 97 U/L (38-126); Anion Gap 7 mmol/L; Blood Urea Nitrogen 17 mg/dL (7-17); Calcium 7.3 mg/dL (8.4-10.2); Carbon Dioxide 28 mmol/L (22-30); Chloride 101 mmol/L (98-107); Glucose 143 mg/dL (74-99); Non-African American GFR(CKD) >90 (>60 ml/min/1.73 sqM); Potassium 3.5 mmol/L (3.5-5.1); Sodium 136 mmol/L (137-145); Total Bilirubin 0.4 mg/dL (0.2-1.3); Total Protein 5.1 g/dL (6.3-8.2)
[2023-03-16 05:35] LABS: Band Neutrophils % 1 %; Eosinophils # (M) 0.27 k/uL (0-0.7); Lymphocytes # (M) 1.86 k/uL (1.0-4.8); Monocytes # (M) 4.26 k/uL (0-1.0); Neutrophils % (M) 75 %; Nucleated Red Blood Cells 0 /100 WBC (0-0); Total Cells Counted 100
[2023-03-16 05:36] LABS: Hypersegmented Neutrophils Present
[2023-03-16] MEDS ORDERED: ZINC OXIDE PASTE (Z-GUARD) 1 APPLIC APPLIC TOPICAL ONE (06:37)
[2023-03-16] MEDS ORDERED: ACETAMINOPHEN TAB 325 MG TAB PO PRN (07:18)
[2023-03-16] MEDS ORDERED: NALOXONE 0.4 MG/ML 1 ML VIAL IV PRN (07:18)
--- NOTE | 2023-03-16 08:12 | ED ---
General Adult HPI - General Chief complaint: Skin/Abscess/Foreign Body Stated complaint: UTI Time Seen by Provider: 03/16/23 03:52 Source: patient, EMS Mode of arrival: EMS Limitations: no limitations - History of Present Illness Initial comments: 's patient is 77-year-old woman who has long-standing history of bilateral pleural effusions with Pleurx catheter placement bilaterally. The patient had been admitted here and of January. She was then discharged to [facility] to have rehabilitation. The patient was reportedly discharged from there to adult care facility yesterday. The patient was then transferred to [facility] by the adult [facility] facility as she reported to be beyond their level of care. When I review the patient, she is complaining of rash to her buttocks. Consistency: constant Improves with: none Worsens with: none Associated Symptoms: rash Treatments Prior to Arrival: none - Related Data Home Medications Medication Instructions Recorded Confirmed Ferrous Sulfate [Iron (65 MG 325 mg PO DAILY 09/10/22 03/18/23 Elemental)] Loratadine [Claritin] 10 mg PO DAILY 09/10/22 03/18/23 Montelukast [Singulair] 10 mg PO HS 09/10/22 03/18/23 Ondansetron [Zofran] 4 mg PO Q4H PRN 09/10/22 03/18/23 Calcium Carb-Vit D 500Mg-5Mcg 1 tab PO HS 10/11/22 03/18/23 [Oscal 500+D 5 Mcg (200 Iu)] Acetaminophen Tab [Tylenol] 650 mg PO Q6H PRN 02/01/23 03/18/23 Atorvastatin Calcium [Lipitor] 80 mg PO HS 02/01/23 03/18/23 Docusate [Colace] 100 mg PO BID 02/01/23 03/18/23 Empagliflozin [Jardiance] 10 mg PO DAILY 02/01/23 03/18/23 Insulin Glargine [Lantus Vial] 15 unit SQ HS 02/01/23 03/18/23 Lactobacillus Acidophilus 1 tab PO BID 02/01/23 03/18/23 [Acidophilus] Levothyroxine Sodium [Synthroid] 125 mcg PO DAILY 02/01/23 03/18/23 Magnesium Oxide [Mag-Ox] 400 mg PO BID 02/01/23 03/18/23 Melatonin 3 mg PO HS PRN 02/01/23 03/18/23 Omeprazole [PriLOSEC] 20 mg PO DAILY 02/01/23 03/18/23 Sennosides [Senokot] 8.6 mg PO BID 02/01/23 03/18/23 rOPINIRole HCL [Requip] 0.5 mg PO BID PRN 02/01/23 03/18/23 Bismuth Subsalicylate 525 mg PO ACHS 03/16/23 03/18/23 [Pepto-Bismol Ultra] Furosemide [Lasix] 40 mg PO BID 03/16/23 03/18/23 calcitrioL [Calcitriol] 0.25 mcg PO DAILY 03/16/23 03/18/23 metOLazone [Zaroxolyn] 2.5 mg PO GARCIA 03/16/23 03/18/23 Previous Rx's Medication Instructions Recorded Aspirin 81 mg PO DAILY tab 11/29/22 Budesonide [Pulmicort] 0.5 mg INHALATION RT-BID ml 11/29/22 Ipratropium-Albuterol Nebulize 3 ml INHALATION RT-QID each 11/29/22 [Duoneb 0.5 mg-3 mg/3 ml Soln] Sertraline [Zoloft] 50 mg PO DAILY tab 02/04/23 Allergies Allergy/AdvReac Type Severity Reaction Status Date / Time No Known Allergies Allergy Verified 03/16/23 13:35 Review of Systems ROS Statement: Those systems with pertinent positive or pertinent negative responses have been documented in the HPI. ROS Other: All systems not noted in ROS Statement are negative. Constitutional: Reports: weakness. Denies: fever Respiratory: Denies: cough, dyspnea Cardiovascular: Denies: chest pain, syncope Gastrointestinal: Reports: diarrhea. Denies: abdominal pain, vomiting Genitourinary: Denies: hematuria Musculoskeletal: Denies: back pain Skin: Reports: as per HPI, rash Neurological: Denies: headache, weakness Past Medical History Past Medical History: Heart Failure, Diabetes Mellitus, Hyperlipidemia, Hypertension, Thyroid Disorder Additional Past Medical History / Comment(s): left leg swells at end of day e very day for about a year History of Any Multi-Drug Resistant Organisms: None Reported Past Surgical History: Cholecystectomy Additional Past Surgical History / Comment(s): cholecystectomy, cataract surgery Past Anesthesia/Blood Transfusion Reactions: No Reported Reaction Past Psychological History: No Psychological Hx Reported Smoking Status: Former smoker Past Alcohol Use History: Occasional Past Drug Use History: None Reported - Past Family History Father Family Medical History: Cancer, Prostate Disorder Additional Family Medical History / Comment(s): prostate CA Mother Additional Family Medical History / Comment(s): parkinsons General Exam Limitations: no limitations General appearance: alert, in no apparent distress Head exam: Present: atraumatic, normocephalic Eye exam: Present: normal appearance. Absent: scleral icterus, conjunctival injection ENT exam: Present: mucous membranes dry Neck exam: Present: normal inspection Respiratory exam: Present: normal lung sounds bilaterally. Absent: respiratory distress, wheezes, rales, rhonchi, stridor Cardiovascular Exam: Present: regular rate, normal rhythm, normal heart sounds. Absent: systolic murmur, diastolic murmur, rubs, gallop GI/Abdominal exam: Present: soft. Absent: distended, tenderness, guarding, rebound, rigid, mass Extremities exam: Present: normal inspection, normal capillary refill. Absent: pedal edema, calf tenderness Back exam: Present: normal inspection. Absent: CVA tenderness (R), CVA tenderness (L) Neurological exam: Present: alert Skin exam: Present: warm, dry, intact Course Vital Signs 03/16/23 03/16/23 03/16/23 02:48 03:23 03:41 Temperature 96.9 F L Pulse Rate 80 86 Respiratory 22 17 Rate Blood Pressure 132/80 109/55 109/55 O2 Sat by Pulse 100 100 Oximetry 03/16/23 03/16/23 03/16/23 04:00 05:00 05:10 Temperature Pulse Rate 81 Respiratory 17 Rate Blood Pressure 109/55 112/61 112/61 O2 Sat by Pulse 100 99 99 Oximetry 03/16/23 03/16/23 03/16/23 06:00 06:02 07:00 Temperature Pulse Rate 86 Respiratory 17 Rate Blood Pressure 124/59 110/65 110/65 O2 Sat by Pulse 100 100 99 Oximetry 03/16/23 03/16/23 03/16/23 07:26 10:00 11:00 Temperature Pulse Rate 61 Respiratory 18 18 18 Rate Blood Pressure 124/61 128/97 128/97 O2 Sat by Pulse 97 100 99 Oximetry 12/09/23 12/09/23 12:00 13:00 Temperature Pulse Rate Respiratory 17 18 Rate Blood Pressure 128/97 111/73 O2 Sat by Pulse 99 100 Oximetry Medical Decision Making - Medical Decision Making is 77-year-old woman transferred to this facility from [facility] at patient request. On arrival here, the patient's appears to be at her baseline. The rash to the buttocks as per be some stage II sacral decubitus. Nursing staff is going to contact the patient's adult care facility to determine whether they are capable of handling her Pleurx catheters and is so she does appear stable to return there, otherwise may need to have admission for further placement. Was pt. sent in by a medical professional or institution (, PA, MARINE FIRER, urgent care, hospital, or fdc...) When possible be specific @ -[Patient was sent to the other hospital from her long-term care facility due to concerns of a level of care Did you speak to anyone other than the patient for history (EMS, parent, family, police, friend...)? What history was obtained from this source @ -[I did speak with the transferring physician Did you review nursing and triage notes (agree or disagree)? Why? @ -[I reviewed and agree with nursing and triage notes] Were old charts reviewed (outside hosp., previous admission, EMS record, old EKG, old radiological studies, urgent care reports/EKG's, fdc records)? Report findings @ -[S old charts were reviewed] Differential Diagnosis (chest pain, altered mental status, abdominal pain women, abdominal pain men, vaginal bleeding, weakness, fever, dyspnea, syncope, headache, dizziness, GI bleed, back pain, seizure, CVA, palpatations, mental health, musculoskeletal)? @ -[not applicable] EKG interpreted by me (3pts min.). @ -[As above] X-rays interpreted by me (1pt min.). @ -[None done] CT interpreted by me (1pt min.). @ -[None done] U/S interpreted by me (1pt. min.). @ -[None done] What testing was considered but not performed or refused? (CT, X-rays, U/S, labs)? Why? @ -[None] What meds were considered but not given or refused? Why? @ -[None] Did you discuss the management of the patient with other professionals (professionals i.e. , PA, MARINE FIRER, lab, RT, psych nurse, social service coordinator, beauty culturist apprentice, teacher, stream control officer, casework manager)? Give summary @ -[No] Was smoking cessation discussed for >3mins.? @ -[No] Was critical care preformed (if so, how long)? @ -[No] Were there social determinants of health that impacted care today? How? (Homelessness, low income, unemployed, alcoholism, drug addiction, transportation, low edu. Level, literacy, decrease access to med. care, fci, rehab)? @ -[No] Was there de-escalation of care discussed even if they declined (Discuss DNR or withdrawal of care, Hospice)? DNR status @ -[There is consideration for comfort care What co-morbidities impacted this encounter? (DM, HTN, Smoking, COPD, CAD, Cancer, CVA, ARF, Chemo, Hep., AIDS, mental health diagnosis, sleep apnea, morbid obesity)? @ -[B cell lymphoma. Diabetes, hypertension, congestive heart failure Was patient admitted / discharged? Hospital course, mention meds given and route, prescriptions, significant lab abnormalities, going to OR and other pertinent info. @ -[Patient is 77-year-old woman with complicated medical history who had been sent to the hospital because her long-term care facility believes she needed higher level of care. Patient's case discussed with admitting physician and tr eatment recommendations are incorporated. She'll be admitted to see if there is a more appropriate long-term care facility that she may be placed with Undiagnosed new problem with uncertain prognosis? @ -[No] Drug Therapy requiring intensive monitoring for toxicity (Heparin, Nitro, Insulin, Cardizem)? @ -[No] Were any procedures done? @ -[No] Diagnosis/symptom? @ -[Bilateral pleural effusions with Pleurx catheters Acute, or Chronic, or Acute on Chronic? @ -[Chronic Uncomplicated (without systemic symptoms) or Complicated (systemic symptoms)? @ -[Uncomplicated Side effects of treatment? @ -[No] Exacerbation, Progression, or Severe Exacerbation? @ -[No] Poses a threat to life or bodily function? How? (Chest pain, USA, SC, pneumonia, PE, COPD, DKA, ARF, appy, cholecystitis, CVA, Diverticulitis, Homicidal, Suicidal, threat to staff... and all critical care pts) @ -[The patient has terminal medical condition - Lab Data Result diagrams: 03/17/23 14:17 03/17/23 07:39 Lab Results 03/16/23 03/16/23 03/16/23 Range/Units 05:00 05:00 05:00 WBC 26.6 H (3.8-10.6) k/uL RBC 4.33 (3.80-5.40) m/uL Hgb 10.9 L (11.4-16.0) gm/dL Hct 34.8 (34.0-46.0) % MCV 80.5 (80.0-100.0) fL MCH 25.2 (25.0-35.0) pg MCHC 31.3 (31.0-37.0) g/dL RDW 17.2 H (11.5-15.5) % Plt Count 137 L D (150-450) k/uL MPV 12.3 Neutrophils % (Manual) 75 % Band Neuts % (Manual) 1 % Lymphocytes % (Manual) 7 % Monocytes % (Manual) 16 % Eosinophils % (Manual) 1 % Neutrophils # (Manual) 20.20 H (1.3-7.7) k/uL Lymphocytes # (Manual) 1.86 (1.0-4.8) k/uL Monocytes # (Manual) 4.26 H (0-1.0) k/uL Eosinophils # (Manual) 0.27 (0-0.7) k/uL Nucleated RBCs 0 (0-0) /100 WBC Manual Slide Review Performed Hypersegmented Neuts Present Hypochromasia Moderate Anisocytosis Slight Microcytosis Slight Sodium 136 L (137-145) mmol/L Potassium 3.5 (3.5-5.1) mmol/L Chloride 101 (98-107) mmol/L Carbon Dioxide 28 (22-30) mmol/L Anion Gap 7 mmol/L BUN 17 (7-17) mg/dL Creatinine 0.44 L (0.52-1.04) mg/dL Est GFR (CKD-EPI)AfAm >90 (>60 ml/min/1.73 sqM) Est GFR (CKD-EPI)NonAf >90 (>60 ml/min/1.73 sqM) Glucose 143 H (74-99) mg/dL Plasma Lactic Acid Yoni 0.9 (0.7-2.0) mmol/L Calcium 7.3 L (8.4-10.2) mg/dL Total Bilirubin 0.4 (0.2-1.3) mg/dL AST 19 (14-36) U/L ALT 12 (4-34) U/L Alkaline Phosphatase 97 (38-126) U/L Total Protein 5.1 L (6.3-8.2) g/dL Albumin 2.2 L (3.5-5.0) g/dL Disposition Clinical Impression: Stage II pressure ulcer of sacral region, Chronic bilateral pleural effusions, Leukocytosis Disposition: ADMITTED IP TO THIS HOSP Condition: Poor
[2023-03-16 08:20] LABS: Appearance,Urine Clear (Clear); Color,Urine Light Yellow; Protein,Urine Negative (Negative); Specific Gravity,Urine 1.025 (1.001-1.035)
[2023-03-16 08:22] LABS: Bilirubin,Urine Negative (Negative); Blood,Urine Negative (Negative); Glucose,Urine (UA) 2+ (Negative); Ketones,Urine Negative (Negative); Leukocyte Esterase,Urine Negative (Negative); Nitrite,Urine Negative (Negative); Urobilinogen,Urine <2.0 mg/dL (<2.0)
[2023-03-16 10:33] LABS: Glucose,Whole Blood 202 mg/dL (70-110)
[2023-03-16] MEDS ORDERED: MELATONIN 3 MG TABLET PO PRN (13:07)
[2023-03-16] MEDS ORDERED: CALCIUM CARBONATE 500 MG CHEWABLE PO PRN (13:07)
[2023-03-16] MEDS: IPRATROPIUM-ALBUTEROL 3 ML NEB INHALATION SCH ×2 (15:54→20:45)
[2023-03-16 16:27] LABS: Glucose,Whole Blood 191 mg/dL (70-110)
[2023-03-16] MEDS: INSULIN ASPART (NovoLOG) 100 UNIT/ML VIAL SQ SCH ×3 (18:11→21:24)
--- NOTE | 2023-03-16 19:08 | P.HPIM ---
History of Present Illness H&P Date: 03/16/23 Chief Complaint: UTI 77-year-old woman who has long-standing history of bilateral pleural effusions with Pleurx catheter placement bilaterally. The patient had been admitted here and of January. She was then [place] to [facility] [place]. The patient was reportedly discharged from there to adult care facility yesterday. The patient was then transferred to [facility] by the adult care facility as she reported to be beyond their level of care. Upon arrival to ED patient complained of rash to the bilateral proximal; patient has stage II sacral decubitus ulcer Patient resides at an adult care facility; unable to state clearly reason for transfer to ED; according to the records here facility is unable to provide patient's level of care and handling of Pleurx catheter Blood work completed in ED reveals a WBC of 26.6, hemoglobin of 10.9 and platelet count of 137, sodium 136, potassium 3.5, BUN/creatinine of 17/0.44 and blood glucose of 143, lactic acid level of 0.9 Review of Systems REVIEW OF SYSTEMS: CONSTITUTIONAL: No fever, no malaise, no fatigue. HEENT: No recent visual problems or hearing problems. Denied any sore throat. CARDIOVASCULAR: No chest pain, orthopnea, PND, no palpitations, no syncope. PULMONARY: No shortness of breath, no cough, no hemoptysis. GASTROINTESTINAL: No diarrhea, no nausea, no vomiting, no abdominal pain. NEUROLOGICAL: No headaches, no weakness, no numbness. HEMATOLOGICAL: Denies any bleeding or petechiae. GENITOURINARY: Denies any burning micturition, frequency, or urgency. MUSCULOSKELETAL/RHEUMATOLOGICAL: Denies any joint pain, swelling, or any muscle pain. ENDOCRINE: Denies any polyuria or polydipsia. The rest of the 14-point review of systems is negative. Past Medical History Past Medical History: Heart Failure, Diabetes Mellitus, Hyperlipidemia, Hypertension, Thyroid Disorder Additional Past Medical History / Comment(s): left leg swells at end of day every day for about a year History of Any Multi-Drug Resistant Organisms: None Reported Past Surgical History: Cholecystectomy Additional Past Surgical History / Comment(s): cholecystectomy, cataract surgery Past Anesthesia/Blood Transfusion Reactions: No Reported Reaction Past Psychological History: No Psychological Hx Reported Smoking Status: Former smoker Past Alcohol Use History: Occasional Past Drug Use History: None Reported - Past Family History Father Family Medical History: Cancer, Prostate Disorder Additional Family Medical History / Comment(s): prostate CA Mother Additional Family Medical History / Comment(s): parkinsons Medications and Allergies Home Medications Medication Instructions Recorded Confirmed Type Ferrous Sulfate [Iron (65 MG 325 mg PO DAILY 09/10/22 03/16/23 History Elemental)] Loratadine [Claritin] 10 mg PO DAILY 09/10/22 03/16/23 History Montelukast [Singulair] 10 mg PO HS 09/10/22 03/16/23 History Ondansetron [Zofran] 4 mg PO Q4H PRN 09/10/22 03/16/23 History Calcium Carb-Vit D 500Mg-5Mcg 1 tab PO HS 10/11/22 03/16/23 History [Oscal 500+D 5 Mcg (200 Iu)] Aspirin 81 mg PO DAILY tab 11/29/22 03/16/23 Rx Budesonide [Pulmicort] 0.5 mg INHALATION RT-BID ml 11/29/22 03/16/23 Rx Ipratropium-Albuterol Nebulize 3 ml INHALATION RT-QID each 11/29/22 03/16/23 Rx [Duoneb 0.5 mg-3 mg/3 ml Soln] Acetaminophen Tab [Tylenol] 650 mg PO Q6H PRN 02/01/23 03/16/23 History Atorvastatin Calcium [Lipitor] 80 mg PO HS 02/01/23 03/16/23 History Docusate [Colace] 100 mg PO BID 02/01/23 03/16/23 History Empagliflozin [Jardiance] 10 mg PO DAILY 02/01/23 03/16/23 History Insulin Glargine [Lantus Vial] 15 unit SQ HS 02/01/23 03/16/23 History Lactobacillus Acidophilus 1 tab PO BID 02/01/23 03/16/23 History [Acidophilus] Levothyroxine Sodium [Synthroid] 125 mcg PO DAILY 02/01/23 03/16/23 History Magnesium Oxide [Mag-Ox] 400 mg PO BID 02/01/23 03/16/23 History Melatonin 3 mg PO HS PRN 02/01/23 03/16/23 History Omeprazole [PriLOSEC] 20 mg PO DAILY 02/01/23 03/16/23 History Sennosides [Senokot] 8.6 mg PO BID 02/01/23 03/16/23 History rOPINIRole HCL [Requip] 0.5 mg PO BID PRN 02/01/23 03/16/23 History Sertraline [Zoloft] 50 mg PO DAILY tab 02/04/23 03/16/23 Rx Bismuth Subsalicylate 525 mg PO ACHS 03/16/23 03/16/23 History [Pepto-Bismol Ultra] Furosemide [Lasix] 40 mg PO BID 03/16/23 03/16/23 History calcitrioL [Calcitriol] 0.25 mcg PO DAILY 03/16/23 03/16/23 History metOLazone [Zaroxolyn] 2.5 mg PO GARCIA 03/16/23 03/16/23 History Allergies Allergy/AdvReac Type Severity Reaction Status Date / Time No Known Allergies Allergy Verified 03/16/23 13:35 Physical Exam Vitals: Vital Signs Temp Pulse Resp BP Pulse Ox 03/16/23 07:26 61 18 124/61 97 03/16/23 06:02 86 17 110/65 100 03/16/23 05:10 81 17 112/61 99 03/16/23 03:41 86 17 109/55 100 03/16/23 02:48 96.9 F L 80 22 132/80 100 Intake and Output 03/15/23 03/16/23 03/16/23 22:59 06:59 14:59 Other: Weight 57 kg General appearance: alert, in no apparent distress Head exam: Present: atraumatic, normocephalic Eye exam: Present: normal appearance. Absent: scleral icterus, conjunctival injection ENT exam: Present: mucous membranes dry Neck exam: Present: normal inspection Respiratory exam: Present: normal lung sounds bilaterally. Absent: respiratory distress, wheezes, rales, rhonchi, stridor Cardiovascular Exam: Present: regular rate, normal rhythm, normal heart sounds. Absent: systolic murmur, diastolic murmur, rubs, gallop GI/Abdominal exam: Present: soft. Absent: distended, tenderness, guarding, rebound, rigid, mass Extremities exam: Present: normal inspection, normal capillary refill. Absent: pedal edema, calf tenderness Back exam: Present: normal inspection. Absent: CVA tenderness (R), CVA tenderness (L) Neurological exam: Present: alert Skin exam: Present: warm, dry, intact Results CBC & Chem 7: 03/16/23 05:00 03/16/23 05:00 Labs: Abnormal Lab Results - Last 24 Hours (Table) 03/16/23 03/16/23 03/16/23 Range/Units 05:00 05:00 07:45 WBC 26.6 H (3.8-10.6) k/uL Hgb 10.9 L (11.4-16.0) gm/dL RDW 17.2 H (11.5-15.5) % Plt Count 137 L D (150-450) k/uL Neutrophils # (Manual) 20.20 H (1.3-7.7) k/uL Monocytes # (Manual) 4.26 H (0-1.0) k/uL Sodium 136 L (137-145) mmol/L Creatinine 0.44 L (0.52-1.04) mg/dL Glucose 143 H (74-99) mg/dL POC Glucose (mg/dL) (70-110) mg/dL Calcium 7.3 L (8.4-10.2) mg/dL Total Protein 5.1 L (6.3-8.2) g/dL Albumin 2.2 L (3.5-5.0) g/dL Urine Glucose (UA) 2+ H (Negative) 03/16/23 Range/Units 10:29 WBC (3.8-10.6) k/uL Hgb (11.4-16.0) gm/dL RDW (11.5-15.5) % Plt Count (150-450) k/uL Neutrophils # (Manual) (1.3-7.7) k/uL Monocytes # (Manual) (0-1.0) k/uL Sodium (137-145) mmol/L Creatinine (0.52-1.04) mg/dL Glucose (74-99) mg/dL POC Glucose (mg/dL) 202 H (70-110) mg/dL Calcium (8.4-10.2) mg/dL Total Protein (6.3-8.2) g/dL Albumin (3.5-5.0) g/dL Urine Glucose (UA) (Negative) Assessment and Plan Assessment: 1. Leukocytosis; etiology unclear - Patient does have sacral decubitus ulcer is does not appear to be infected - UA is unremarkable - We will monitor CBC, CRP and pro-calcitonin - Wound care consult; consult ID for leukocytosis 2. Sacral decubitus ulcer; local wound care 3. Recurrent bilateral pleural effusions; patient is status post Pleurx catheter placement bilaterally which was done at our facility in January; post p rocedure patient was discharged to [facility] [place] for [place] and Pleurx catheter care; current facility is not able to provide level of care required for management of Pleurx catheter - We will consult case management for discharge planning 4. Hypertension; currently not on any antihypertensive therapy 5. Hyperlipidemia; Lipitor 80 mg by mouth daily at bedtime 6. Hypothyroidism; Synthroid 125 MCG daily 7. Diabetes mellitus type 2; patient takes Jardiance 10 mg daily; monitor Accu- Cheks before meals and at bedtime 8. History of CHF; patient remains on Lasix 40 mg twice a day; Zaroxolyn 2.5 mg every Saturday; we will monitor strict CARMEN's, daily weights, low salt and fluid restricted diet 9. COPD/asthma; not in exacerbation; continue with Pulmicort inhalation 0.5 mg twice a day; Singulair 10 mg daily; loratadine 10 mg daily DVT prophylaxis; SCDs/ subcu heparin CODE STATUS; full code
[2023-03-16 20:38] LABS: Glucose,Whole Blood 182 mg/dL (70-110)
[2023-03-16] MEDS: BUDESONIDE 0.5 MG/2 ML NEBU INHALATION SCH (20:45)
[2023-03-16] MEDS ORDERED: AMOXIC-POT CLAV 875-125MG 1 EACH TAB PO SCH (21:00)
[2023-03-16] MEDS ORDERED: INSULIN DETEMIR (LEVEMIR) 100 UNIT/ML SYR SQ SCH (21:00)
[2023-03-16] MEDS: MAGNESIUM OXIDE 400 MG TAB PO SCH (22:19)
[2023-03-16] MEDS: CALCIUM CARB-VIT D 500 MG-5 MCG TAB PO SCH (22:19)
[2023-03-16] MEDS: SENNOSIDES 8.6 MG TAB PO SCH (22:20)
[2023-03-16] MEDS: MONTELUKAST 10 MG TAB PO SCH (22:20)
[2023-03-16] MEDS: ATORVASTATIN 80 MG TAB PO SCH (22:20)
[2023-03-16] MEDS: DOCUSATE 100 MG CAP PO SCH (22:23)
[2023-03-17 06:21] LABS: Glucose,Whole Blood 91 mg/dL (70-110)
[2023-03-17] MEDS: INSULIN ASPART (NovoLOG) 100 UNIT/ML VIAL SQ SCH ×4 (06:31→21:50)
[2023-03-17] MEDS: PANTOPRAZOLE 40 MG TABLET PO SCH (06:32)
[2023-03-17] MEDS: LEVOTHYROXINE 125 MCG TAB PO SCH (06:32)
[2023-03-17 08:31] LABS: African American GFR (CKD) >90 (>60 ml/min/1.73 sqM); Anion Gap 8 mmol/L; Blood Urea Nitrogen 16 mg/dL (7-17); Calcium 7.4 mg/dL (8.4-10.2); Carbon Dioxide 27 mmol/L (22-30); Chloride 103 mmol/L (98-107); Glucose 56 mg/dL (74-99); Non-African American GFR(CKD) >90 (>60 ml/min/1.73 sqM); Potassium 3.4 mmol/L (3.5-5.1); Sodium 138 mmol/L (137-145)
[2023-03-17] MEDS: DAPAGLIFLOZIN PROPANEDIOL 5 MG TABLET PO SCH (08:42)
[2023-03-17] MEDS: FERROUS SULFATE 325 MG TAB PO SCH (08:42)
[2023-03-17] MEDS: DOCUSATE 100 MG CAP PO SCH ×2 (08:42→21:51)
[2023-03-17] MEDS: SERTRALINE 50 MG TAB PO SCH (08:42)
[2023-03-17] MEDS: LORATADINE 10 MG TAB PO SCH (08:42)
[2023-03-17] MEDS: SENNOSIDES 8.6 MG TAB PO SCH ×2 (08:42→21:51)
[2023-03-17] MEDS: MAGNESIUM OXIDE 400 MG TAB PO SCH ×2 (08:42→21:51)
[2023-03-17] MEDS: ASPIRIN 81 MG PO SCH (08:42)
[2023-03-17] MEDS: BUDESONIDE 0.5 MG/2 ML NEBU INHALATION SCH ×2 (09:06→19:48)
[2023-03-17] MEDS: IPRATROPIUM-ALBUTEROL 3 ML NEB INHALATION SCH ×4 (09:07→19:48)
[2023-03-17] MEDS ORDERED: metOLazone 2.5 MG TAB PO SCH (10:30)
[2023-03-17] MEDS ORDERED: ZINC OXIDE PASTE (Z-GUARD) 1 APPLIC APPLIC TOPICAL PRN (10:40)
[2023-03-17] MEDS: POTASSIUM CHLORIDE ER 20 MEQ TAB.ER PO SCH ×2 (11:51→21:51)
[2023-03-17 12:15] LABS: Glucose,Whole Blood 51 mg/dL (70-110)
[2023-03-17 12:34] LABS: Glucose,Whole Blood 47 mg/dL (70-110)
[2023-03-17 12:57] LABS: Glucose,Whole Blood 75 mg/dL (70-110)
[2023-03-17 15:01] LABS: Anisocytosis Slight; HCT 39.9 % (34.0-46.0); HGB 12.3 gm/dL (11.4-16.0); Hypochromasia Marked; MCH 25.2 pg (25.0-35.0); MCHC 30.9 g/dL (31.0-37.0); MCV 81.7 fL (80.0-100.0); Mean Platelet Volume 13.2; Platelet Count 140 k/uL (150-450); RBC 4.88 m/uL (3.80-5.40); RDW 17.1 % (11.5-15.5); WBC 25.3 k/uL (3.8-10.6)
[2023-03-17 16:09] LABS: Eosinophils # (M) 0.25 k/uL (0-0.7); Lymphocytes # (M) 1.27 k/uL (1.0-4.8); Monocytes # (M) 5.82 k/uL (0-1.0); Neutrophils # (M) 18.22 k/uL (1.3-7.7); Neutrophils % (M) 72 %; Nucleated Red Blood Cells 0 /100 WBC (0-0); Total Cells Counted 200
[2023-03-17 16:15] LABS: Glucose,Whole Blood 128 mg/dL (70-110)
[2023-03-17] MEDS: FUROSEMIDE 40 MG TAB PO SCH (16:46)
--- NOTE | 2023-03-17 20:39 | P.CONS ---
History of Present Illness - Reason for Consult Consult date: 03/17/23 Leukocytosis/sacral decubitus ulcer Requesting physician: Darius Dorado - Chief Complaint Weakness and not feeling well x few days - History of Present Illness This is a telehealth visit Patient is a 77-year female with a past medical history significant for diabetes mellitus hypertension hyperlipidemia heart failure with the patient did have a history of recurrent effusion requiring Pleurx catheter placement patient was brought in the hospital yesterday morning for not very clear reason as no clear documentation in the ER note and the patient herself not a very good historian however it has been reported the patient did have a sacral pressure ulcer and also noticed to have elevated white count that has prompted this infectious disease consultation patient currently denies having any fever or any chills patient is breathing comfortably on 3 to nasal cannula oxygen patient Not tachycardic or hypotensive patient did have an elevated white count 26.6 with a left shift creatinine 0.34 did have elevated procalcitonin level enzymes are normal no chest x-ray was done, patient was admitted to the hospital and infectious disease was consulted for further management, patient currently denies any headache or URI symptoms denies any chest pain shortness of breath occasional cough which is dry in nature patient denies having any nausea no pain no abdominal pain however nursing staff did report multiple episodes of loose stools patient not very clear when the diarrhea started Review of Systems Positive point and negatives has been mentioned in the HPI, complete review of systems was performed and all other systems are negative Past Medical History Past Medical History: Heart Failure, Diabetes Mellitus, Hyperlipidemia, Hypertension, Thyroid Disorder Additional Past Medical History / Comment(s): left leg swells at end of day every day for about a year History of Any Multi-Drug Resistant Organisms: None Reported Past Surgical History: Cholecystectomy Additional Past Surgical History / Comment(s): cholecystectomy, cataract surgery Past Anesthesia/Blood Transfusion Reactions: No Reported Reaction Past Psychological History: No Psychological Hx Reported Smoking Status: Former smoker Past Alcohol Use History: Occasional Past Drug Use History: None Reported - Past Family History Father Family Medical History: Cancer, Prostate Disorder Additional Family Medical History / Comment(s): prostate CA Mother Additional Family Medical History / Comment(s): parkinsons Medications and Allergies Home Medications Medication Instructions Recorded Confirmed Type Ferrous Sulfate [Iron (65 MG 325 mg PO DAILY 09/10/22 03/18/23 History Elemental)] Loratadine [Claritin] 10 mg PO DAILY 09/10/22 03/18/23 History Montelukast [Singulair] 10 mg PO HS 09/10/22 03/18/23 History Ondansetron [Zofran] 4 mg PO Q4H PRN 09/10/22 03/18/23 History Calcium Carb-Vit D 500Mg-5Mcg 1 tab PO HS 10/11/22 03/18/23 History [Oscal 500+D 5 Mcg (200 Iu)] Aspirin 81 mg PO DAILY tab 11/29/22 03/18/23 Rx Budesonide [Pulmicort] 0.5 mg INHALATION RT-BID ml 11/29/22 03/18/23 Rx Ipratropium-Albuterol Nebulize 3 ml INHALATION RT-QID each 11/29/22 03/18/23 Rx [Duoneb 0.5 mg-3 mg/3 ml Soln] Acetaminophen Tab [Tylenol] 650 mg PO Q6H PRN 02/01/23 03/18/23 History Atorvastatin Calcium [Lipitor] 80 mg PO HS 02/01/23 03/18/23 History Docusate [Colace] 100 mg PO BID 02/01/23 03/18/23 History Empagliflozin [Jardiance] 10 mg PO DAILY 02/01/23 03/18/23 History Insulin Glargine [Lantus Vial] 15 unit SQ HS 02/01/23 03/18/23 History Lactobacillus Acidophilus 1 tab PO BID 02/01/23 03/18/23 History [Acidophilus] Levothyroxine Sodium [Synthroid] 125 mcg PO DAILY 02/01/23 03/18/23 History Magnesium Oxide [Mag-Ox] 400 mg PO BID 02/01/23 03/18/23 History Melatonin 3 mg PO HS PRN 02/01/23 03/18/23 History Omeprazole [PriLOSEC] 20 mg PO DAILY 02/01/23 03/18/23 History Sennosides [Senokot] 8.6 mg PO BID 02/01/23 03/18/23 History rOPINIRole HCL [Requip] 0.5 mg PO BID PRN 02/01/23 03/18/23 History Sertraline [Zoloft] 50 mg PO DAILY tab 02/04/23 03/18/23 Rx Bismuth Subsalicylate 525 mg PO ACHS 03/16/23 03/18/23 History [Pepto-Bismol Ultra] Furosemide [Lasix] 40 mg PO BID 03/16/23 03/18/23 History calcitrioL [Calcitriol] 0.25 mcg PO DAILY 03/16/23 03/18/23 History metOLazone [Zaroxolyn] 2.5 mg PO GARCIA 03/16/23 03/18/23 History Allergies Allergy/AdvReac Type Severity Reaction Status Date / Time No Known Allergies Allergy Verified 03/16/23 13:35 Physical Exam Vitals: Vital Signs Temp Pulse Resp BP BP Pulse Ox 03/17/23 09:07 100 03/17/23 08:00 97.6 F 78 17 136/76 100 03/17/23 01:58 97.8 F 76 18 125/74 100 03/16/23 20:46 97.8 F 86 16 133/77 100 03/16/23 13:00 18 111/73 100 03/16/23 12:00 17 128/97 99 03/16/23 11:00 18 128/97 99 03/16/23 10:00 18 128/97 100 Intake and Output 03/16/23 03/17/23 03/17/23 22:59 06:59 14:59 Output Total 200 Balance -200 Output: Urine 200 Other: Voiding Method External Catheter External Catheter # Bowel Movements 1 1 Weight 57 kg GENERAL DESCRIPTION: Elderly female lying in bed, no distress. No tachypnea or accessory muscle of respiration use. HEENT: Shows Pallor , no scleral icterus. Oral mucous membrane is dry. No pharyngeal erythema or thrush NECK: Trachea central, no thyromegaly. LUNGS: Unlabored breathing. Clear to auscultation anteriorly. No wheeze or crackle. HEART: S1, S2, regular rate and rhythm. No loud murmur ABDOMEN: Soft, no tenderness EXTREMITIES: No edema of feet. SKIN: No rash, no masses palpable. Sacral pressure ulcer with no slough tissue no surrounding redness or drainage NEUROLOGICAL: The patient is lethargic but arousable, mood and affect normal. Exam completed with the help of [employer] Results CBC & Chem 7: 03/17/23 14:17 03/17/23 07:39 Labs: Abnormal Lab Results - Last 24 Hours (Table) 03/16/23 03/16/23 03/16/23 Range/Units 10:29 16:25 20:36 Potassium (3.5-5.1) mmol/L Creatinine (0.52-1.04) mg/dL Glucose (74-99) mg/dL POC Glucose (mg/dL) 202 H 191 H 182 H (70-110) mg/dL Calcium (8.4-10.2) mg/dL 03/17/23 Range/Units 07:39 Potassium 3.4 L (3.5-5.1) mmol/L Creatinine 0.34 L (0.52-1.04) mg/dL Glucose 56 L (74-99) mg/dL POC Glucose (mg/dL) (70-110) mg/dL Calcium 7.4 L (8.4-10.2) mg/dL Assessment and Plan (1) Diarrhea Status: Acute Code(s): R19.7 - DIARRHEA, UNSPECIFIED SNOMED Code(s): 10271847 (2) Stage II pressure ulcer of sacral region Status: Acute Code(s): L89.152 - PRESSURE ULCER OF SACRAL REGION, STAGE 2 SNOMED Code(s): 49785604604195 (3) Leukocytosis Status: Acute Priority: High Code(s): D72.829 - ELEVATED WHITE BLOOD CELL COUNT, UNSPECIFIED SNOMED Code(s): 997660432 Plan: 1patient with elevated white count which is likely multifactorial in this patient who did have a history of recurrent effusion requiring Pleurx catheter placement and did have multiple cultures from the pleural fluid and those has been negative and now the patient did have significant diarrhea we will need to rule out C. difficile colitis to the likely etiology 2we will obtain a chest x-ray to complete the workup and check a stool for C. difficile 3patient did have a stage II sacral pressure ulcer but no cellulitis local wound care with dressing and keep the area of the pressure 4we will add vancomycin if stool for C. difficile came back positive We will follow on clinical condition and cultures to further adjust medication if needed Thank you for this consultation we will follow the patient along with you Dictation was produced using [employer] dictation software. please excuse any grammatical, word or spelling errors. Time with Patient: Greater than 30
[2023-03-17] MEDS ORDERED: INSULIN DETEMIR (LEVEMIR) 100 UNIT/ML SYR SQ SCH (21:00)
[2023-03-17 21:05] LABS: Glucose,Whole Blood 186 mg/dL (70-110)
[2023-03-17] MEDS: MONTELUKAST 10 MG TAB PO SCH (21:51)
[2023-03-17] MEDS: CALCIUM CARB-VIT D 500 MG-5 MCG TAB PO SCH (21:51)
[2023-03-17] MEDS: ATORVASTATIN 80 MG TAB PO SCH (21:51)
[2023-03-17] MEDS: VANCOMYCIN 125 MG CAPSULE PO SCH (21:51)
[2023-03-17] MEDS: BRIMONIDINE TARTRATE 0.2% DROPS 5 ML BTL BOTH EYES SCH ×2 (21:51→23:15)
[2023-03-18 02:41] VITALS: TEMP 98
--- NOTE | 2023-03-18 06:02 | P.PN ---
Subjective Progress Note Date: 03/17/23 77-year-old woman who has long-standing history of bilateral pleural effusions with Pleurx catheter placement bilaterally. The patient had been admitted here and of January. She was then discharged to [facility] on [facility] to have rehabilitation. The patient was reportedly discharged from there to adult care facility yesterday. The patient was then transferred to [facility] by the adult care facility as she reported to be beyond their level of care. Upon arrival to ED patient complained of rash to the bilateral proximal; patient has stage II sacral decubitus ulcer Patient resides at an adult care facility; unable to state clearly reason for transfer to ED; according to the records here facility is unable to provide patient's level of care and handling of Pleurx catheter Blood work completed in ED reveals a WBC of 26.6, hemoglobin of 10.9 and platelet count of 137, sodium 136, potassium 3.5, BUN/creatinine of 17/0.44 and blood glucose of 143, lactic acid level of 0.9 Objective - Vital Signs Vital signs: Vital Signs Temp 97.6 F 03/17/23 08:00 Pulse 78 03/17/23 08:00 Resp 17 03/17/23 08:00 BP 136/76 03/17/23 08:00 Pulse Ox 100 03/17/23 09:07 FiO2 Intake & Output 03/16/23 03/17/23 03/17/23 18:59 06:59 18:59 Output Total 200 Balance -200 Weight 57 kg Output: Urine 200 Other: Voiding Method External Catheter External Catheter External Catheter # Bowel Movements 1 1 - Exam General appearance: alert, in no apparent distress Head exam: Present: atraumatic, normocephalic Eye exam: Present: normal appearance. Absent: scleral icterus, conjunctival injection ENT exam: Present: mucous membranes dry Neck exam: Present: normal inspection Respiratory exam: Present: normal lung sounds bilaterally. Absent: respiratory distress, wheezes, rales, rhonchi, stridor Cardiovascular Exam: Present: regular rate, normal rhythm, normal heart sounds. Absent: systolic murmur, diastolic murmur, rubs, gallop GI/Abdominal exam: Present: soft. Absent: distended, tenderness, guarding, rebound, rigid, mass Extremities exam: Present: normal inspection, normal capillary refill. Absent: pedal edema, calf tenderness Back exam: Present: normal inspection. Absent: CVA tenderness (R), CVA tenderness (L) Neurological exam: Present: alert Skin exam: Present: warm, dry, intact - Labs CBC & Chem 7: 03/17/23 14:17 03/17/23 07:39 Labs: Abnormal Lab Results - Last 24 Hours (Table) 03/16/23 03/16/23 03/16/23 Range/Units 10:29 16:25 20:36 Potassium (3.5-5.1) mmol/L Creatinine (0.52-1.04) mg/dL Glucose (74-99) mg/dL POC Glucose (mg/dL) 202 H 191 H 182 H (70-110) mg/dL Calcium (8.4-10.2) mg/dL 03/17/23 Range/Units 07:39 Potassium 3.4 L (3.5-5.1) mmol/L Creatinine 0.34 L (0.52-1.04) mg/dL Glucose 56 L (74-99) mg/dL POC Glucose (mg/dL) (70-110) mg/dL Calcium 7.4 L (8.4-10.2) mg/dL Assessment and Plan Assessment: 1. Leukocytosis; etiology unclear - Patient does have sacral decubitus ulcer is does not appear to be infected - UA is unremarkable - We will monitor CBC, CRP and pro-calcitonin - Wound care consult; consult ID for leukocytosis 2. Sacral decubitus ulcer; local wound care 3. Recurrent bilateral pleural effusions; patient is status post Pleurx catheter placement bilaterally which was done at our facility in January; post procedure patient was discharged to [facility] on the [address] for rehabilitation and Pleurx catheter care; current facility is not able to provide level of care required for management of Pleurx catheter - We will consult case management for discharge planning 4. Hypertension; currently not on any antihypertensive therapy 5. Hyperlipidemia; Lipitor 80 mg by mouth daily at bedtime 6. Hypothyroidism; Synthroid 125 MCG daily 7. Diabetes mellitus type 2; patient takes Jardiance 10 mg daily; monitor Accu- Cheks before meals and at bedtime 8. History of CHF; patient remains on Lasix 40 mg twice a day; Zaroxolyn 2.5 mg every Saturday; we will monitor strict CARMEN's, daily weights, low salt and fluid restricted diet 9. COPD/asthma; not in exacerbation; continue with Pulmicort inhalation 0.5 mg twice a day; Singulair 10 mg daily; loratadine 10 mg daily DVT prophylaxis; SCDs/ subcu heparin CODE STATUS; full code
[2023-03-18 06:24] LABS: Glucose,Whole Blood 74 mg/dL (70-110)
[2023-03-18] MEDS ORDERED: LORazepam 2 MG/ML INJ IV STA (06:29)
[2023-03-18] MEDS ORDERED: LORazepam 2 MG/ML INJ ONE (06:31)
--- NOTE | 2023-03-18 07:16 | P.EN ---
A- team: Indication: Unresponsivess Arrived on Scene to find: Unresponsive patient. The patient was found by the RN to be foaming at the mouth and "tense and staring off into space". She was believed to be having a seizure. 2 mg IVP Ativan was adminitered prior to my arrival at the scene. The patient was minimally responsive to sternal rub. Laboratory evaluation was reviewed. Vital signs reviewed: BP 109/61, pulse 92, and SpO2 98% on 2 L is a cannula oxygen Patient seen and examined at bedside. Patient General: [non toxic], [no distress], [appears at stated age] Derm: [warm], [dry] Head: [atraumatic], [normocephalic], [symmetric] Eyes: [anicteric sclera] Mouth: [no lip lesion], [mucus membranes moist] Cardiovascular: [S1S2 reg], systolic murmur appreciated, [positive posterior tibial pulse bilateral], Lungs: [CTA bilateral], [no rhonchi, no rales] , [no accessory muscle use] Abdominal: [soft], [no appreciable organomegaly] Ext: [no gross muscle atrophy], [no edema], [no contractures] Neuro: Minimally responsive to sternal rub Assessment: Unresponsiveness, suspected seizure Plan: CT brain without contrast and CT angiogram head and neck ordered Neuro checks ordered Seizure precautions Neurology consulted Patient's at the bedside and notes that he make wish to make the patient a no code Patient appears to be protecting her airway at this time although low threshold for intubation if family wishes to continue with full code Disposition: Transferred to 3 S Notified: Primary team notified by RN A Total of 40 minutes of critical care time was spent on the complex care of this patient.
[2023-03-18 07:28] LABS: Glucose,Whole Blood <20 mg/dL (70-110)
[2023-03-18] MEDS ORDERED: DEXTROSE 50% SYRINGE 50 ML IVP ONE (07:29)
[2023-03-18 07:30] LABS: Glucose,Whole Blood <20 mg/dL (70-110)
[2023-03-18] MEDS: PANTOPRAZOLE 40 MG TABLET PO SCH (07:38)
[2023-03-18] MEDS: INSULIN ASPART (NovoLOG) 100 UNIT/ML VIAL SQ SCH (07:38)
[2023-03-18] MEDS: LEVOTHYROXINE 125 MCG TAB PO SCH (07:38)
[2023-03-18 07:46] LABS: Glucose,Whole Blood 84 mg/dL (70-110)
[2023-03-18 07:46] LABS: Glucose,Whole Blood 157 mg/dL (70-110)
[2023-03-18 07:46] LABS: Glucose,Whole Blood <20 mg/dL (70-110)
[2023-03-18] MEDS: IPRATROPIUM-ALBUTEROL 3 ML NEB INHALATION SCH (08:04)
[2023-03-18] MEDS: BUDESONIDE 0.5 MG/2 ML NEBU INHALATION SCH (08:04)
--- NOTE | 2023-03-18 08:04 | CT ---
EXAMINATION TYPE: CT brain wo con DATE OF EXAM: 03/18/2023 COMPARISON: 11/30/2022 HISTORY: 77-year-old female Seizure, altered mental status TECHNIQUE: Examination was done in axial plane without intravenous contrast. Coronal and sagittal r econstructions performed. CT DLP: 1070.6 mGycm Automated exposure control for dose reduction was used. FINDINGS: Multifocal cortical/subcortical areas of hypodensity have developed/progressed in the interval compar ed to 11/30/2022 including the lateral left frontal lobe, left frontal temporal junction, lateral fron toparietal junction, superior left parieto-occipital junction, posterior right parieto-occipital junc tion, and left cerebellum. No evidence for acute intracranial hemorrhage, mass, mass-effect, or extra-axial fluid collection. T here is no effacement of cerebral sulci or basal subarachnoid cisterns. Mild prominence to the ventri cular system likely mild central cerebral atrophy. There is no midline shift. Jeff-white matter dist inction is preserved. Moderate mucosal thickening left ethmoid air cells. Mastoid air cells well pneumatized. Orbits and gl obes are intact. 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 These were possibly acute on the 11/30/2022 study with only a couple suspicious early areas seen at that time. N o evidence for acute intracranial hemorrhage, midline shift, or herniation.
[2023-03-18 08:13] LABS: Glucose,Whole Blood 65 mg/dL (70-110)
--- NOTE | 2023-03-18 08:23 | CT ---
EXAMINATION TYPE: CT angio head neck DATE OF EXAM: 03/18/2023 COMPARISON: 11/25/2022 HISTORY: 77-year-old female unresponsiveness, Seizure, altered mental status TECHNIQUE: Contiguous axial scanning of the head and neck performed with IV Contrast, patient injecte d with 65 mL of Isovue 370. Coronal and sagittal MIP reconstructions performed. 3-D reconstructions g enerated on a dedicated independent workstation. CT DLP: 303.8 mGycm Automated exposure control for dose reduction was used. FINDINGS: Neck: Asymmetric soft tissue in the left tubal/palatine tonsils has developed in the interval, axial imagin g was. This may be positional. Direct visualization recommended when patient able to exclude abnormal soft tissue. Large bilateral pleural effusions, increased from 11/25/2022 and similar to what was present on 09/11/19 23. Enlarged AP window lymph nodes measuring up to 1.1 cm may be reactive. Conventional arch was a branching anatomy. The origin of the left vertebral artery is obscured by adjacent dense contrast bolus. Otherwise, the vertebral arteries are codominant and patent throughout their course. The right common and right internal carotid arteries are widely patent by NASCET criteria. There is a segment in the mid left common carotid artery which is partially obscured by dense contras t bolus. The remainder of the left common carotid artery is patent. Mild atherosclerotic change left carotid bulb. Left ICA is widely patent by NASCET criteria. HEAD: There is mild narrowing at the V3/V4 junction of the left vertebral artery. Otherwise, both vertebral and basilar arteries as well as the remainder of the posterior circulation is patent. The dural venous sinuses are patent. Mild atherosclerotic calcifications throughout the carotid siphons without significant narrowing. Slightly hypoplastic A1 segment right anterior cerebral artery. Otherwise, the internal carotid arteries and remainder of the anterior circulation appear patent. No aneurysmal change is seen. IMPRESSION: NECK: 1. THE ORIGIN OF THE LEFT VERTEBRAL ARTERY IS OBSCURED BY DENSE CONTRAST BOLUS AND NOT WELL ASSESSED. 2. OTHERWISE, NO SIGNIFICANT STENOSIS WITHIN THE CAROTID OR VERTEBRAL ARTERIES OF THE NECK. 3. Note the very large bilateral pleural effusions, increased from 11/25/2022. Radiographic follow-up advised. 4. Some asymmetric soft tissue in the region of the left tubal/palatine tonsils which may be position al. Direct visualization recommended when patient able to exclude abnormal soft tissue. 5. New mildly enlarged AP window lymph nodes measuring up to 1.1 cm may be reactive. Head: 6. No large vessel intracranial arterial occlusion, significant stenosis, or aneurysmal change is see n. 7. Given infarcts involving both sides of the brain as well as the anterior and posterior circulation s, consider a central embolic source.
[2023-03-18 08:40] LABS: Glucose,Whole Blood 83 mg/dL (70-110)
[2023-03-18] MEDS ORDERED: MORPHINE SULFATE 2 MG/ML SYRINGE IVP STA ×2 (08:46→10:10)
[2023-03-18] MEDS ORDERED: SCOPOLAMINE 1 MG/72 HR PATCH TRANSDERM STA (09:51)
[2023-03-18] MEDS: SERTRALINE 50 MG TAB PO SCH (10:06)
[2023-03-18] MEDS: FERROUS SULFATE 325 MG TAB PO SCH (10:06)
[2023-03-18] MEDS: POTASSIUM CHLORIDE ER 20 MEQ TAB.ER PO SCH (10:06)
[2023-03-18] MEDS: DOCUSATE 100 MG CAP PO SCH (10:06)
[2023-03-18] MEDS: MAGNESIUM OXIDE 400 MG TAB PO SCH (10:06)
[2023-03-18] MEDS: ASPIRIN 81 MG PO SCH (10:06)
[2023-03-18] MEDS: LORATADINE 10 MG TAB PO SCH (10:06)
[2023-03-18] MEDS: VANCOMYCIN 125 MG CAPSULE PO SCH (10:06)
[2023-03-18] MEDS: DAPAGLIFLOZIN PROPANEDIOL 5 MG TABLET PO SCH (10:06)
[2023-03-18] MEDS: SENNOSIDES 8.6 MG TAB PO SCH (10:06)
[2023-03-18] MEDS: FUROSEMIDE 40 MG TAB PO SCH (10:06)
[2023-03-18] MEDS: BRIMONIDINE TARTRATE 0.2% DROPS 5 ML BTL BOTH EYES SCH (11:15)
[2023-03-18 11:28] VITALS: BP 92/50; PULSE 67; RESP 17
--- NOTE | 2023-03-18 22:29 | P.DS ---
Providers Date of admission: 03/16/23 07:23 Attending physician: Mildred Dickerson Consults: 03/16/23 19:08 Consult Physician Routine Consulting Provider: Nathaniel Palomo Consult Reason/Comments: Leukocytosis/sacral decubitus ulcer Do you want consulting provider notified?: Yes, Notify in am 03/18/23 06:58 Consult Physician Urgent Consulting Provider: Lloyd Claire Consult Reason/Comments: unresponsiveness, suspected seizure Do you want consulting provider notified?: Yes Primary care physician: Nissa Hollingsworth Hospital Course: Final Diagnosis End of life care -Altered mental status/episode of unresponsiveness with concern for seizure like activity imaging reveals interval progression of stroke -Subacute/Chronic infarct involving bilateral hemispheres rule out embolic source, neurology was consulted however family does not want any further testing and wishes to make patient comfortable. -Acute C Dif infection and sepsis being treated with oral vancomycin and ID consultation -Leukocytosis with chronic elevation outpatient. -Sacral decubitus ulcer, stage 2 POA; local wound care -Recurrent bilateral pleural effusions; patient is status post Pleurx catheter placement bilaterally in October with negative cytology. Etiology for pleural effusions is unclear. Current facility is not able to provide level of care required for management of Pleurx catheter was sent back into the hospital for further evaluation, follows with pulmonary outpatient for this. -Hypertension; currently not on BP medications, pt is currently hypotensive -Hyperlipidemia; Lipitor 80 mg by mouth daily at bedtime -Hypothyroidism; Synthroid 125 MCG daily -Diabetes mellitus type 2; patient takes Jardiance 10 mg daily; monitor Accu- Cheks before meals and at bedtime -History of CHF; on lasix and metolazone outpatient -COPD/asthma; not in exacerbation; continue with Pulmicort inhalation 0.5 mg twice a day; Singulair 10 mg daily; loratadine 10 mg daily -Hx of stroke in Nov with residual right sided weakness and cognitive impairment. 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 Discharge Disposition Patient will be transitioned to [facility]. Hospital Course 77-year-old woman who has long-standing history of bilateral pleural effusions with Pleurx catheter placement bilaterally. The patient had been admitted here and of January. She was then discharged to [facility] to have rehabilitation. The patient was reportedly discharged from there to adult care facility yesterday. The patient was then transferred to [facility] by the adult care facility as she reported to be beyond their level of care. Upon arrival to ED patient complained of rash to the bilateral proximal; patient has stage II sacral decubitus ulcer Patient resides at an adult care facility; unable to state clearly reason for transfer to ED; according to the records here facility is unable to provide patient's level of care and handling of Pleurx catheter. Patient evaluated today on the stepdown unit was an ATeam from med/surg for altered mental status. Event note reports patient was found starting off and foaming at the mouth per RN. Concern for seizure like activity and patient was also difficult to arouse required sternal rub. Patient was admitted to the hospital from [facility] unable to care for patient due to bilateral pleurex catheters and high level of care. Patient was admitted to the hospital in November per family for acute stroke and was sent to [facility] inpatient rehab and form there was discharged to [facility]. [facility] then discharged patient to an extended care facility who sent pt back to the hospital for evaluation. Patient was also hospitalized back in January. Patient was found positive for C.Dif this hospital stay has been started on oral vancomcyin by ID. White count elevated at 26.6 and 25.3. Renal function normal, sodium 138. Procalcitonin came back at 0.43. Bilateral pleurex catheters in place which have not been drained. Brain CT reveals mutifocal corticol/subcortical areas of hypodensity have developed in the interval from Nov including left lateral frontal lobe, left frontal temporal junction, lateral frontoparietal junction, superior left parieto- occipital junction, posterior right parieto-occipital junction and left cerebellum. [place] to be development/progression of subacute vs. chronic infarcts. CT angiography reveals large bilateral pleural effusions, bilateral brain infarct consider embolic source and no large vesssel intracranial arterial occlusion no significant stenosis or aneurysmal change is seen. Discussed findings with family at the bedside and the decision was made by spouse and daughter for comfort measures. Hospice was consulted. Patient will be transitioned to general inpatient hospice. The impression and plan of care has been dictated by Vicky Schneider Nurse Practitioner as directed. Dr. Ashley MD I have performed a history and physical examination and medical decision making of this patient, discussed the same with the dictator, and agree with the dictators assessment and plan as written, documented as a scribe. Based on total visit time, I have performed more than 50% of this visit. Plan - Discharge Summary New Discharge Prescriptions: No Action Loratadine [Claritin] 10 mg PO DAILY Ondansetron [Zofran] 4 mg PO Q4H PRN PRN Reason: Nausea Montelukast [Singulair] 10 mg PO HS Calcium Carb-Vit D 500Mg-5Mcg [Oscal 500+D 5 Mcg (200 Iu)] 1 tab PO HS Budesonide [Pulmicort] 0.5 mg INHALATION RT-BID ml rOPINIRole HCL [Requip] 0.5 mg PO BID PRN PRN Reason: restless legs Melatonin 3 mg PO HS PRN PRN Reason: Insomnia Acetaminophen Tab [Tylenol] 650 mg PO Q6H PRN PRN Reason: Pain Or Fever > 100.5 Lactobacillus Acidophilus [Acidophilus] 1 tab PO BID Docusate [Colace] 100 mg PO BID Omeprazole [PriLOSEC] 20 mg PO DAILY Levothyroxine Sodium [Synthroid] 125 mcg PO DAILY Atorvastatin Calcium [Lipitor] 80 mg PO HS Sertraline [Zoloft] 50 mg PO DAILY tab calcitrioL [Calcitriol] 0.25 mcg PO DAILY Furosemide [Lasix] 40 mg PO BID Ferrous Sulfate [Iron (65 MG Elemental)] 325 mg PO DAILY Aspirin 81 mg PO DAILY tab Ipratropium-Albuterol Nebulize [Duoneb 0.5 mg-3 mg/3 ml Soln] 3 ml INHALATION RT-QID each Sennosides [Senokot] 8.6 mg PO BID Magnesium Oxide [Mag-Ox] 400 mg PO BID Insulin Glargine [Lantus Vial] 15 unit SQ HS Empagliflozin [Jardiance] 10 mg PO DAILY metOLazone [Zaroxolyn] 2.5 mg PO GARCIA Bismuth Subsalicylate [Pepto-Bismol Ultra] 525 mg PO ACHS Discharge Medication List Ferrous Sulfate [Iron (65 MG Elemental)] 325 mg PO DAILY 09/10/22 [History] Loratadine [Claritin] 10 mg PO DAILY 09/10/22 [History] Montelukast [Singulair] 10 mg PO HS 09/10/22 [History] Ondansetron [Zofran] 4 mg PO Q4H PRN 09/10/22 [History] Calcium Carb-Vit D 500Mg-5Mcg [Oscal 500+D 5 Mcg (200 Iu)] 1 tab PO HS 10/11/22 [History] Aspirin 81 mg PO DAILY tab 11/29/22 [Rx] Budesonide [Pulmicort] 0.5 mg INHALATION RT-BID ml 11/29/22 [Rx] Ipratropium-Albuterol Nebulize [Duoneb 0.5 mg-3 mg/3 ml Soln] 3 ml INHALATION RT-QID each 11/29/22 [Rx] Acetaminophen Tab [Tylenol] 650 mg PO Q6H PRN 02/01/23 [History] Atorvastatin Calcium [Lipitor] 80 mg PO HS 02/01/23 [History] Docusate [Colace] 100 mg PO BID 02/01/23 [History] Empagliflozin [Jardiance] 10 mg PO DAILY 02/01/23 [History] Insulin Glargine [Lantus Vial] 15 unit SQ HS 02/01/23 [History] Lactobacillus Acidophilus [Acidophilus] 1 tab PO BID 02/01/23 [History] Levothyroxine Sodium [Synthroid] 125 mcg PO DAILY 02/01/23 [History] Magnesium Oxide [Mag-Ox] 400 mg PO BID 02/01/23 [History] Melatonin 3 mg PO HS PRN 02/01/23 [History] Omeprazole [PriLOSEC] 20 mg PO DAILY 02/01/23 [History] Sennosides [Senokot] 8.6 mg PO BID 02/01/23 [History] rOPINIRole HCL [Requip] 0.5 mg PO BID PRN 02/01/23 [History] Sertraline [Zoloft] 50 mg PO DAILY tab 02/04/23 [Rx] Bismuth Subsalicylate [Pepto-Bismol Ultra] 525 mg PO ACHS 03/16/23 [History] Furosemide [Lasix] 40 mg PO BID 03/16/23 [History] calcitrioL [Calcitriol] 0.25 mcg PO DAILY 03/16/23 [History] metOLazone [Zaroxolyn] 2.5 mg PO GARCIA 03/16/23 [History] Follow up Appointment(s)/Referral(s): Nissa Hollingsworth MD [Primary Care Provider] - 1 Week Discharge Disposition: HOME WITH HOSPICE
--- NOTE | 2023-03-21 11:51 | CDI ---
Documentation Clarification Form Date: 03/21/2023 11:04:48 AM From: Ena Pierce Admit Date: 03/16/2023 07:23:00 AM Patient Name: Ping Villalpando Visit Number: [id number] Discharge Date: 03/18/2023 11:31:00 AM ATTENTION: The Clinical Documentation Specialists (CDI) and [facility] Coding Staff appreciate your assistance in clarifying documentation. Please respond to the clarification below the line at the bottom and electronically sign. The CDI & [facility] Coding staff will review the response and follow-up if needed. Please note: Queries are made part of the Legal Health Record. If you have any questions, please contact the author of this message via ITS. Dr. Yessi Ramirez Subacute/chronic infarct is documented in the Discharge Summary 03/18/23. Additional clarification regarding the Infarction is requested. History/risk factors: patient is a 77 year old female with a long standing history of bilateral pleural effusions with Pleurx catheter placement bilaterally. Patient was admitted here in Nov 2022 for a stroke, and Jan 2023. She has a history of DM type 2, HTN, CHF, Hypothyroidism, COPD, HLD, and a hx of monoclonal B cell lymphocytosis, follows with oncology. Clinical Indicators: On 03/18/[address] Dominguez Event Note- patient was found unresponsive, foaming at the mouth tense and starring off into space. Was believed to be having a seizure. Final Hospital Course: End of life care, concern for seizure with interval progression of stroke, subacute/chronic infarct involving bilateral hemispheres rule out embolic source, Acute C-Diff and sepsis, history of stroke in Nov 2022 with residual right sided weakness and cognitive impairment. Brain CT: impression: interval development/progression of subacute, or more likely, chronic infarcts involving multiple areas of the left cerebral hemisphere, right parieto-occipical junction, and left cerebellum. These were possibly acute on the 11/30/22 study with only a couple suspicious early areas seen at that time. No evidence for acute intracranial hemorrhage, midline shift, or herniation. Angiography CT head: Impression- head: no large vessel intracranial arterial occlusion, significant stenosis, or aneurysmal change is seen. Given infarcts involving both sides of the brain as well as the anterior and posterior circulations, consider a central embolic source. Neurology was consulted, however family does not want any further testing and wishes to make the patient comfortable. Treatment: monitor CBC, CRP, and Pro-Calcitonin, ID consult for leukocytosis, wound care for Sacral Decubitus Ulcer, Vanco for C-Difficile, 2 IVP Ativan for seizure like activity, patient discharged to hospice. Please clarify the age and cause of the Infarction, if known: Age of Stroke/Infarction: [ ] Acute/Subacute Infarction with subsequent seizures [ ] Chronic Infarction with subsequent seizures [ ] Other (please specify) [ x] Unable to Determine Cause of Stroke/Infarction: [ ] Embolic [ ] Ischemic [ ] Other (please specify) [ ] Unable to Determine MTDD
--- NOTE | 2023-03-24 16:00 | P.PN ---
Subjective Progress Note Date: 03/18/23 Principal diagnosis: Reason for follow-up is leukocytosis/C. diff colitis and sacral pressure ulcer Patient is a 77-year female with a past medical history significant fo r diabetes mellitus hypertension hyperlipidemia heart failure with the patient did have a history of recurrent effusion requiring Pleurx catheter placement was sent to the ER for evaluation of weakness patient noticed to have elevated white count did have diarrhea stool for C. diff came back positive On today's evaluation that is 03/18/2023 patient is afebrile, patient did have acute change in her mentation concerning for possible CVA and workup has been ordered patient is currently lethargic and unable to provide any history no vomiting or diarrhea has been reported No labs has been drawn today Objective - Vital Signs Vital signs: Vital Signs Temp 98 F 03/18/23 02:00 Pulse 67 03/18/23 08:35 Resp 17 03/18/23 08:35 BP 92/50 03/18/23 08:35 Pulse Ox 100 03/18/23 08:35 FiO2 Intake & Output 03/17/23 03/18/23 03/18/23 18:59 06:59 18:59 Output Total 400 500 Balance -400 -500 Weight 53.977 kg Output: Urine 400 500 Other: Voiding Method External Catheter External Catheter External Catheter # Voids 0 - Labs CBC & Chem 7: 03/17/23 14:17 03/17/23 07:39 Labs: Abnormal Lab Results - Last 24 Hours (Table) 03/17/23 03/17/23 03/17/23 Range/Units 07:54 12:33 14:17 WBC 25.3 H (3.8-10.6) k/uL MCHC 30.9 L (31.0-37.0) g/dL RDW 17.1 H (11.5-15.5) % Plt Count 140 L (150-450) k/uL Neutrophils # (Manual) 18.22 H (1.3-7.7) k/uL Monocytes # (Manual) 5.82 H (0-1.0) k/uL POC Glucose (mg/dL) 47 L (70-110) mg/dL Procalcitonin 0.43 H (0.02-0.09) ng/mL C. difficile (EIA) Intrp (Negative) 12/01/2803/17/23 03/17/23 Range/Units 16:13 18:54 21:04 WBC (3.8-10.6) k/uL MCHC (31.0-37.0) g/dL RDW (11.5-15.5) % Plt Count (150-450) k/uL Neutrophils # (Manual) (1.3-7.7) k/uL Monocytes # (Manual) (0-1.0) k/uL POC Glucose (mg/dL) 128 H 186 H (70-110) mg/dL Procalcitonin (0.02-0.09) ng/mL C. difficile (EIA) Intrp Positive A (Negative) 03/18/23 03/18/23 03/18/23 Range/Units 07:27 07:28 07:30 WBC (3.8-10.6) k/uL MCHC (31.0-37.0) g/dL RDW (11.5-15.5) % Plt Count (150-450) k/uL Neutrophils # (Manual) (1.3-7.7) k/uL Monocytes # (Manual) (0-1.0) k/uL POC Glucose (mg/dL) <20 L <20 L <20 L (70-110) mg/dL Procalcitonin (0.02-0.09) ng/mL C. difficile (EIA) Intrp (Negative) 03/18/23 03/18/23 Range/Units 07:35 07:54 WBC (3.8-10.6) k/uL MCHC (31.0-37.0) g/dL RDW (11.5-15.5) % Plt Count (150-450) k/uL Neutrophils # (Manual) (1.3-7.7) k/uL Monocytes # (Manual) (0-1.0) k/uL POC Glucose (mg/dL) 157 H 65 L (70-110) mg/dL Procalcitonin (0.02-0.09) ng/mL C. difficile (EIA) Intrp (Negative) Assessment and Plan (1) C. difficile colitis Status: Acute Code(s): A04.72 - ENTEROCOLITIS D/T CLOSTRIDIUM DIFFICILE, NOT SPCF RECUR SNOMED Code(s): 859920167 (2) Stage II pressure ulcer of sacral region Status: Acute Code(s): L89.152 - PRESSURE ULCER OF SACRAL REGION, STAGE 2 SNOMED Code(s): 81344159054770 (3) Leukocytosis Status: Chronic Priority: Medium Code(s): D72.829 - ELEVATED WHITE BLOOD CELL COUNT, UNSPECIFIED SNOMED Code(s): 999080760 Plan: 1patient with elevated white count which is likely multifactorial in this patient who did have a history of recurrent effusion requiring Pleurx catheter placement and did have multiple cultures from the pleural fluid and those has been negative and now the patient did have significant diarrhea and the patie nt's stool for C. diff came a positive what the patient is currently on vancomycin 2patient did have a stage II sacral pressure ulcer but no cellulitis local wound care with dressing and keep the area of the pressure 3-patient did have significant change in her clinical condition concerning for possible CVA workup is in progress family is leaning more towards hospice which may be appropriate if that is the case vancomycin will be discontinued Family the bedside questions and concerns were answered Dictation was produced using Slingration software. please excuse any grammatical, word or spelling errors.
== END 2023-03-18 11:31 | disposition hospice, inpatient (51) | DRG 371 ==
LOC: EC 02:43 → 4SSUR 07:23 → 3SCARD 03-18 07:01
PROVIDERS: ADMIT Internal Medicine; ATTEND Internal Medicine
DX: A04.72 Enterocolitis due to Clostridium difficile, not specified as recurrent (principal); A41.9 Sepsis, unspecified organism; I63.9 Cerebral infarction, unspecified; I69.351 Hemiplegia and hemiparesis following cerebral infarction affecting right dominant side; L89.152 Pressure ulcer of sacral region, stage 2; E78.5 Hyperlipidemia, unspecified; R56.9 Unspecified convulsions; J44.89 Other specified chronic obstructive pulmonary disease; D72.820 Lymphocytosis (symptomatic); I69.398 Other sequelae of cerebral infarction; E03.9 Hypothyroidism, unspecified; I11.0 Hypertensive heart disease with heart failure; I50.9 Heart failure, unspecified; E11.9 Type 2 diabetes mellitus without complications; Z51.5 Encounter for palliative care; Z87.891 Personal history of nicotine dependence; Z79.899 Other long term (current) drug therapy; Z79.890 Hormone replacement therapy; Z79.84 Long term (current) use of oral hypoglycemic drugs; Z79.82 Long term (current) use of aspirin; Z79.4 Long term (current) use of insulin
CPT/HCPCS: 36415; 51798; 70450; 70496; 70498; 80048; 80053; 81003; 83605; 84145; 85025; 87040; 87324; 94760; 99285

== ENCOUNTER 2023-03-18 11:23 | Inpatient (IN) | payer MEDICAID ==
[2023-03-18] MEDS ORDERED: LORazepam 2 MG/ML INJ IV PRN (11:24)
[2023-03-18] MEDS ORDERED: GLYCOPYRROLATE 0.2 MG/ML 2 ML VIAL IVP PRN (11:24)
[2023-03-18] MEDS ORDERED: ACETAMINOPHEN SUPPOSITORY 650 MG SUPP RECTAL PRN (11:24)
[2023-03-18] MEDS ORDERED: DRY MOUTH SPRAY 44.3 SPRAY/44.3 ML SPRAY MUCOUS MEM PRN (11:24)
[2023-03-18] MEDS ORDERED: ONDANSETRON 4 MG/2 ML VIAL IVP PRN (11:24)
[2023-03-18] MEDS ORDERED: MORPHINE SULFATE 2 MG/ML SYRINGE IV PRN (11:24)
[2023-03-18] MEDS ORDERED: SCOPOLAMINE 1 MG/72 HR PATCH TRANSDERM SCH (12:30)
[2023-03-18] MEDS ORDERED: MORPHINE SULFATE (100 MG/2 ML) 100 MG in SODIUM CHLORIDE 0.9% 100 ML IV SCH (12:30)
[2023-03-18] MEDS: ATROPINE OPHTH SOLN 1% 5ML BTL SUBLINGUAL PRN (22:12)
--- NOTE | 2023-03-18 22:27 | P.HPIM ---
History of Present Illness H&P Date: 03/18/23 Patient evaluated today on the stepdown unit was an ATeam from med/surg for altered mental status. Event note reports patient was found starting off and foaming at the mouth per RN. Concern for seizure like activity and patient was also difficult to arouse required sternal rub. Patient was admitted to the hospital from [facility] unable to care for patient due to bilateral pleurex catheters and high level of care. Patient was admitted to the hospital in November per family for acute stroke and was sent to [facility] inpatient rehab and form there was discharged to [facility]. [facility] then discharged patient to an extended care facility who sent pt back to the hospital for evaluation. Patient was also hospitalized back in January. Patient was found positive for C.Dif this hospital stay has been started on oral vancomcyin by ID. White count elevated at 26.6 and 25.3. Renal function normal, sodium 138. Procalcitonin came back at 0.43. Bilateral pleurex catheters in place which have not been drained. Brain CT reveals mutifocal corticol/subcortical areas of hypodensity have developed in the interval from Nov including left lateral frontal lobe, left frontal temporal junction, lateral frontoparietal junction, superior left parieto- occipital junction, posterior right parieto-occipital junction and left cerebellum. [place] to be development/progression of subacute vs. chronic infarcts. CT angiography reveals large bilateral pleural effusions, bilateral brain infarct consider embolic source and no large vesssel intracranial arterial occlusion no significant stenosis or aneurysmal change is seen. Discussed findings with family at the bedside and the decision was made by spouse and daughter for comfort measures. Hospice was consulted. Patient will be transitioned to general inpatient hospice. Unable to complete review of systems patient is minimally responsive and requires sternal rub to fully arouse. Physical Exam General appearance: Alert x 0 lethargic minimally responsive, moaning. Head exam: Present: atraumatic, normocephalic Eye exam: Present: normal appearance. Absent: scleral icterus, conjunctival injection ENT exam: Present: mucous membranes dry Neck exam: Present: normal inspection Respiratory exam: Present: normal lung sounds bilaterally. Absent: respiratory distress, wheezes, rales, rhonchi, stridor Cardiovascular Exam: Present: regular rate, normal rhythm, normal heart sounds. Absent: systolic murmur, diastolic murmur, rubs, gallop GI/Abdominal exam: Present: soft. Absent: distended, tenderness, guarding, rebound, rigid, mass Extremities exam: Diffuse weakness . Neurological exam: Lethargic, alert x 0 Skin exam: Present: warm, dry, intact Assessment and Plan End of life care open with GIP and hospice following. -Altered mental status/episode of unresponsiveness with concern for seizure like activity imaging reveals interval progression of stroke -Subacute/Chronic infarct involving bilateral hemispheres rule out embolic source, neurology was consulted however family does not want any further testing and wishes to make patient comfortable. -Acute C Dif infection and sepsis being treated with oral vancomycin and ID consultation -Leukocytosis with chronic elevation outpatient. -Sacral decubitus ulcer, stage 2 POA; local wound care -Recurrent bilateral pleural effusions; patient is status post Pleurx catheter placement bilaterally in October with negative cytology. Etiology for pleural effusions is unclear. Current facility is not able to provide level of care required for management of Pleurx catheter was sent back into the hospital for further evaluation, follows with pulmonary outpatient for this. -Hypertension; currently not on BP medications, pt is currently hypotensive -Hyperlipidemia; Lipitor 80 mg by mouth daily at bedtime -Hypothyroidism; Synthroid 125 MCG daily -Diabetes mellitus type 2; patient takes Jardiance 10 mg daily; monitor Accu- Cheks before meals and at bedtime -History of CHF; on lasix and metolazone outpatient -COPD/asthma; not in exacerbation; continue with Pulmicort inhalation 0.5 mg twice a day; Singulair 10 mg daily; loratadine 10 mg daily -Hx of stroke in Nov with residual right sided weakness and cognitive impairment. 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 Do not resuscitate/do not intubate. The impression and plan of care has been dictated by Vicky Schneider Nurse Practitioner as directed. Dr. Ahsley MD I have performed a history and physical examination and medical decision making of this patient, discussed the same with the dictator, and agree with the dictators assessment and plan as written, documented as a scribe. Based on total visit time, I have performed more than 50% of this visit. Past Medical History Past Medical History: Heart Failure, Diabetes Mellitus, Hyperlipidemia, Hypertension, Thyroid Disorder Additional Past Medical History / Comment(s): left leg swells at end of day every day for about a year History of Any Multi-Drug Resistant Organisms: None Reported Past Surgical History: Cholecystectomy Additional Past Surgical History / Comment(s): cholecystectomy, cataract surgery, thoravent placement Past Anesthesia/Blood Transfusion Reactions: No Reported Reaction Past Psychological History: No Psychological Hx Reported Smoking Status: Former smoker Past Alcohol Use History: Occasional Past Drug Use History: None Reported - Past Family History Father Family Medical History: Cancer, Prostate Disorder Additional Family Medical History / Comment(s): prostate CA Mother Additional Family Medical History / Comment(s): parkinsons Medications and Allergies Home Medications Medication Instructions Recorded Confirmed Type Ferrous Sulfate [Iron (65 MG 325 mg PO DAILY 09/10/22 03/18/23 History Elemental)] Loratadine [Claritin] 10 mg PO DAILY 09/10/22 03/18/23 History Montelukast [Singulair] 10 mg PO HS 09/10/22 03/18/23 History Ondansetron [Zofran] 4 mg PO Q4H PRN 09/10/22 03/18/23 History Calcium Carb-Vit D 500Mg-5Mcg 1 tab PO HS 10/11/22 03/18/23 History [Oscal 500+D 5 Mcg (200 Iu)] Aspirin 81 mg PO DAILY tab 11/29/22 03/18/23 Rx Budesonide [Pulmicort] 0.5 mg INHALATION RT-BID ml 11/29/22 03/18/23 Rx Ipratropium-Albuterol Nebulize 3 ml INHALATION RT-QID each 11/29/22 03/18/23 Rx [Duoneb 0.5 mg-3 mg/3 ml Soln] Acetaminophen Tab [Tylenol] 650 mg PO Q6H PRN 02/01/23 03/18/23 History Atorvastatin Calcium [Lipitor] 80 mg PO HS 02/01/23 03/18/23 History Docusate [Colace] 100 mg PO BID 02/01/23 03/18/23 History Empagliflozin [Jardiance] 10 mg PO DAILY 02/01/23 03/18/23 History Insulin Glargine [Lantus Vial] 15 unit SQ HS 02/01/23 03/18/23 History Lactobacillus Acidophilus 1 tab PO BID 02/01/23 03/18/23 History [Acidophilus] Levothyroxine Sodium [Synthroid] 125 mcg PO DAILY 02/01/23 03/18/23 History Magnesium Oxide [Mag-Ox] 400 mg PO BID 02/01/23 03/18/23 History Melatonin 3 mg PO HS PRN 02/01/23 03/18/23 History Omeprazole [PriLOSEC] 20 mg PO DAILY 02/01/23 03/18/23 History Sennosides [Senokot] 8.6 mg PO BID 02/01/23 03/18/23 History rOPINIRole HCL [Requip] 0.5 mg PO BID PRN 02/01/23 03/18/23 History Sertraline [Zoloft] 50 mg PO DAILY tab 02/04/23 03/18/23 Rx Bismuth Subsalicylate 525 mg PO ACHS 03/16/23 03/18/23 History [Pepto-Bismol Ultra] Furosemide [Lasix] 40 mg PO BID 03/16/23 03/18/23 History calcitrioL [Calcitriol] 0.25 mcg PO DAILY 03/16/23 03/18/23 History metOLazone [Zaroxolyn] 2.5 mg PO GARCIA 03/16/23 03/18/23 History Allergies Allergy/AdvReac Type Severity Reaction Status Date / Time No Known Allergies Allergy Verified 03/16/23 13:35 Physical Exam Vitals: Vital Signs Pulse Resp 03/18/23 20:00 12 03/18/23 16:20 78 12 03/18/23 14:00 78 12 Intake and Output 03/18/23 03/18/23 03/18/23 06:59 14:59 22:59 Intake Total 23.052 Balance 23.052 Intake: Intake, IV Titration 23.052 Amount Morphine Sulfate (100 mg/ 23.052 2 ml) 100 mg In Sodium Chloride 0.9% 100 ml @ 1 MG/HR 1.02 mls/hr IV . Q24H [facility] Rx#:[id number] Other: Voiding Method Diaper # Voids 0 Weight 53.9 kg Assessment and Plan Time with Patient: Greater than 30
[2023-03-18 23:30] VITALS: PULSE 118; RESP 14
[2023-03-19] MEDS: ATROPINE OPHTH SOLN 1% 5ML BTL SUBLINGUAL PRN (01:40)
--- NOTE | 2023-03-20 21:45 | P.DS ---
Providers Date of admission: 03/18/23 11:32 Attending physician: Yessi Ramirez Primary care physician: Nissa Hollingsworth [facility] Course: Final Diagnosis End of life care open with GIP and hospice following. -Altered mental status/episode of unresponsiveness with concern for seizure like activity imaging reveals interval progression of stroke -Subacute/Chronic infarct involving bilateral hemispheres rule out embolic source, neurology was consulted however family does not want any further testing and wishes to make patient comfortable. -Acute C Dif infection and sepsis being treated with oral vancomycin and ID consultation -Leukocytosis with chronic elevation outpatient. -Sacral decubitus ulcer, stage 2 POA; local wound care -Recurrent bilateral pleural effusions; patient is status post Pleurx catheter placement bilaterally in October with negative cytology. Etiology for pleural effusions is unclear. Current facility is not able to provide level of care required for management of Pleurx catheter was sent back into the hospital for further evaluation, follows with pulmonary outpatient for this. -Hypertension; currently not on BP medications, pt is currently hypotensive -Hyperlipidemia; Lipitor 80 mg by mouth daily at bedtime -Hypothyroidism; Synthroid 125 MCG daily -Diabetes mellitus type 2; patient takes Jardiance 10 mg daily; monitor Accu- Cheks before meals and at bedtime -History of CHF; on lasix and metolazone outpatient -COPD/asthma; not in exacerbation; continue with Pulmicort inhalation 0.5 mg twice a day; Singulair 10 mg daily; loratadine 10 mg daily -Hx of stroke in Nov with residual right sided weakness and cognitive impairment. 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 Do not resuscitate/do not intubate. Patient on 03/19/23 at 0155 preliminary cause of C.dif sepsis and acute ischemic stroke Hospital Course Patient was admitted to the hospital from [facility] unable to care for patient due to bilateral pleurex catheters and high level of care. Patient is a 77-year female with a past medical history significant for diabetes mellitus hypertension hyperlipidemia heart failure with the patient did have a history of recurrent effusion. Patient was admitted to the hospital in November per family for acute stroke and was sent to [facility] inpatient rehab and form there was discharged to [facility]. [facility] then discharged patient to an extended care facility who sent pt back to the hospital for evaluation. Patient was also hospitalized back in January. Patient was found positive for C.Dif this hospital stay has been started on oral vancomcyin by ID. White count elevated at 26.6 and 25.3. Renal function normal, sodium 138. Procalcitonin came back at 0.43. Bilateral pleurex catheters in place which have not been drained. Patient was an ATeam from med/surg for altered mental status. Event note reports patient was found starting off and foaming at the mouth per RN. Concern for seizure like activity and patient was also difficult to arouse required sternal rub. Brain CT reveals mutifocal corticol/subcortical areas of hypodensity have developed in the interval from Nov including left lateral frontal lobe, left frontal temporal junction, lateral frontoparietal junction, superior left parieto- occipital junction, posterior right parieto-occipital junction and left cerebellum. [place] to be development/progression of subacute vs. chronic infarcts. CT angiography reveals large bilateral pleural effusions, bilateral brain infarct consider embolic source and no large vesssel intracranial arterial occlusion no significant stenosis or aneurysmal change is seen. Discussed findings with family at the bedside and the decision was made by spouse and daughter for comfort measures. Hospice was consulted. Patient was transitioned to general inpatient hospice. Thank you for allowing us to participate in the care of this patient. The impression and plan of care has been dictated by Vicky Schneider, Nurse Practitioner as directed. Dr. Ashley MD I have performed a history and physical examination and medical decision making of this patient, discussed the same with the dictator, and agree with the dictators assessment and plan as written, documented as a scribe. Based on total visit time, I have performed more than 50% of this visit. Plan - Discharge Summary New Discharge Prescriptions: No Action Loratadine [Claritin] 10 mg PO DAILY Ondansetron [Zofran] 4 mg PO Q4H PRN PRN Reason: Nausea Montelukast [Singulair] 10 mg PO HS Calcium Carb-Vit D 500Mg-5Mcg [Oscal 500+D 5 Mcg (200 Iu)] 1 tab PO HS Budesonide [Pulmicort] 0.5 mg INHALATION RT-BID ml rOPINIRole HCL [Requip] 0.5 mg PO BID PRN PRN Reason: restless legs Melatonin 3 mg PO HS PRN PRN Reason: Insomnia Acetaminophen Tab [Tylenol] 650 mg PO Q6H PRN PRN Reason: Pain Or Fever > 100.5 Lactobacillus Acidophilus [Acidophilus] 1 tab PO BID Docusate [Colace] 100 mg PO BID Omeprazole [PriLOSEC] 20 mg PO DAILY Levothyroxine Sodium [Synthroid] 125 mcg PO DAILY Atorvastatin Calcium [Lipitor] 80 mg PO HS Sertraline [Zoloft] 50 mg PO DAILY tab calcitrioL [Calcitriol] 0.25 mcg PO DAILY Furosemide [Lasix] 40 mg PO BID Ferrous Sulfate [Iron (65 MG Elemental)] 325 mg PO DAILY Aspirin 81 mg PO DAILY tab Ipratropium-Albuterol Nebulize [Duoneb 0.5 mg-3 mg/3 ml Soln] 3 ml INHALATION RT-QID each Sennosides [Senokot] 8.6 mg PO BID Magnesium Oxide [Mag-Ox] 400 mg PO BID Insulin Glargine [Lantus Vial] 15 unit SQ HS Empagliflozin [Jardiance] 10 mg PO DAILY metOLazone [Zaroxolyn] 2.5 mg PO GARCIA Bismuth Subsalicylate [Pepto-Bismol Ultra] 525 mg PO ACHS Discharge Medication List Ferrous Sulfate [Iron (65 MG Elemental)] 325 mg PO DAILY 09/10/22 [History] Loratadine [Claritin] 10 mg PO DAILY 09/10/22 [History] Montelukast [Singulair] 10 mg PO HS 09/10/22 [History] Ondansetron [Zofran] 4 mg PO Q4H PRN 09/10/22 [History] Calcium Carb-Vit D 500Mg-5Mcg [Oscal 500+D 5 Mcg (200 Iu)] 1 tab PO HS 10/11/22 [History] Aspirin 81 mg PO DAILY tab 11/29/22 [Rx] Budesonide [Pulmicort] 0.5 mg INHALATION RT-BID ml 11/29/22 [Rx] Ipratropium-Albuterol Nebulize [Duoneb 0.5 mg-3 mg/3 ml Soln] 3 ml INHALATION RT-QID each 11/29/22 [Rx] Acetaminophen Tab [Tylenol] 650 mg PO Q6H PRN 02/01/23 [History] Atorvastatin Calcium [Lipitor] 80 mg PO HS 02/01/23 [History] Docusate [Colace] 100 mg PO BID 02/01/23 [History] Empagliflozin [Jardiance] 10 mg PO DAILY 02/01/23 [History] Insulin Glargine [Lantus Vial] 15 unit SQ HS 02/01/23 [History] Lactobacillus Acidophilus [Acidophilus] 1 tab PO BID 02/01/23 [History] Levothyroxine Sodium [Synthroid] 125 mcg PO DAILY 02/01/23 [History] Magnesium Oxide [Mag-Ox] 400 mg PO BID 02/01/23 [History] Melatonin 3 mg PO HS PRN 02/01/23 [History] Omeprazole [PriLOSEC] 20 mg PO DAILY 02/01/23 [History] Sennosides [Senokot] 8.6 mg PO BID 02/01/23 [History] rOPINIRole HCL [Requip] 0.5 mg PO BID PRN 02/01/23 [History] Sertraline [Zoloft] 50 mg PO DAILY tab 02/04/23 [Rx] Bismuth Subsalicylate [Pepto-Bismol Ultra] 525 mg PO ACHS 03/16/23 [History] Furosemide [Lasix] 40 mg PO BID 03/16/23 [History] calcitrioL [Calcitriol] 0.25 mcg PO DAILY 03/16/23 [History] metOLazone [Zaroxolyn] 2.5 mg PO GARCIA 03/16/23 [History] Discharge Disposition: - Preliminary Cause of Preliminary Cause of : acute ischemic stroke and c.dif sepsis
== END 2023-03-19 04:19 | disposition expired | DRG 951 ==
LOC: 3SCARD 11:32
PROVIDERS: ADMIT Internal Medicine; ATTEND Internal Medicine
DX: Z51.5 Encounter for palliative care (principal); A41.9 Sepsis, unspecified organism; A04.72 Enterocolitis due to Clostridium difficile, not specified as recurrent; I69.351 Hemiplegia and hemiparesis following cerebral infarction affecting right dominant side; Z66 Do not resuscitate; I95.9 Hypotension, unspecified; E78.5 Hyperlipidemia, unspecified; L89.152 Pressure ulcer of sacral region, stage 2; D72.820 Lymphocytosis (symptomatic); J44.89 Other specified chronic obstructive pulmonary disease; I50.9 Heart failure, unspecified; I11.0 Hypertensive heart disease with heart failure; E11.9 Type 2 diabetes mellitus without complications; E03.9 Hypothyroidism, unspecified; R56.9 Unspecified convulsions; I69.398 Other sequelae of cerebral infarction; Z87.891 Personal history of nicotine dependence; Z79.899 Other long term (current) drug therapy; Z79.890 Hormone replacement therapy; Z79.84 Long term (current) use of oral hypoglycemic drugs; Z79.82 Long term (current) use of aspirin; Z79.4 Long term (current) use of insulin